=== PATIENT | female | born 1945 | race Caucasian/White ===

== ENCOUNTER 2019-03-27 19:05 | Inpatient (IN) | payer OTHER, BC ==
[2019-03-27 21:27] VITALS: BMI 17.8
[2019-03-27] MEDS: NA CHLORIDE 0.9% 1,000 ML IV SCH (21:33)
[2019-03-27] MEDS: ONDANSETRON 4 MG/2 ML VIAL IV PRN (21:35)
[2019-03-27 21:38] LABS: Basophils % 0.3 % (0-1.3); Hematocrit 39.6 % (36.0-45.0); Lymphocytes % 6.2 % (15.3-44.8); MPV 7.6 fL (7.6-11.3); RBC Red Blood Cell Count 4.07 M/uL (3.86-4.86)
[2019-03-27 21:44] LABS: Albumin 3.2 g/dL (3.4-5.0); Bilirubin Total 0.3 mg/dL (0.2-1.0); Magnesium 1.8 mg/dL (1.8-2.4); Protein, Total 6.5 g/dL (6.4-8.2)
[2019-03-27 21:53] LABS: Potassium 2.8 mmol/L (3.5-5.1)
[2019-03-27] MEDS: KCL 20 MEQ/100 mL IVPB 20 MEQ/100 ML BAG IV SCH (22:38)
[2019-03-27] MEDS: CIPROFLOXACIN 400mg IV 400 MG/200 ML BAG IV SCH (23:39)
[2019-03-27 23:43] LABS: Blood Morphology Comment NOT SEEN (NOT SEEN); Platelet Estimate ADEQ
[2019-03-28] MEDS: METRONIDAZOLE 500mg IVPB 500 MG/100 ML BAG IV SCH ×3 (00:27→16:41)
[2019-03-28] MEDS: KCL 20 MEQ/100 mL IVPB 20 MEQ/100 ML BAG IV SCH ×2 (01:10→03:47)
[2019-03-28] MEDS: LOPERAMIDE HCL 2 MG CAPSULE PO PRN ×3 (05:31→21:54)
[2019-03-28 05:38] LABS: Urine Appearance CLOUDY; Urine Bilirubin NEGATIVE (NEG); Urine Blood 3+ (NEG); Urine Color YELLOW; Urine Glucose NEGATIVE (NEG); Urine Protein 2+ (NEG); Urine Specific Gravity >=1.030 (1.005-1.030); Urine Urobilinogen 0.2 mg/dL (0.2-1.0)
[2019-03-28 05:54] LABS: Urine Microscopic Reflex ORDER UMIC
[2019-03-28 06:21] LABS: Urine Bacteria 20-50 /HPF (<20); Urine Culture Reflex Order REFLEXED
[2019-03-28] MEDS: NA CHLORIDE 0.9% 1,000 ML IV SCH ×2 (06:44→16:40)
[2019-03-28] MEDS ORDERED: MAGNESIUM SULFATE 1 gm IVPB 1 GM/100 ML BAG IV ONE (09:00)
[2019-03-28] MEDS: BUDESONIDE 3 MG PO SCH (09:00)
[2019-03-28] MEDS: LEVOTHYROXINE SOD 0.1 MG TAB PO SCH (09:53)
[2019-03-28] MEDS: AMLODIPINE 5 MG TAB PO SCH (09:53)
[2019-03-28] MEDS: CARVEDILOL 6.25 MG TAB PO SCH ×2 (09:53→20:00)
[2019-03-28] MEDS: CIPROFLOXACIN 400mg IV 400 MG/200 ML BAG IV SCH ×2 (11:44→20:00)
[2019-03-28] MEDS: ONDANSETRON 4 MG/2 ML VIAL IV PRN ×2 (13:32→20:06)
[2019-03-28] MEDS ORDERED: POTASSIUM CL SA 10 MEQ TAB PO ONE (14:00)
[2019-03-28] MEDS: DIPHENOX/ATROP SULF 1 TAB PO PRN ×2 (14:14→20:00)
[2019-03-28] MEDS: ATORVASTATIN 20 MG TAB PO SCH (20:00)
[2019-03-29] MEDS ORDERED: POTASSIUM CL 40 MEQ in NA CHLORIDE 0.9% 500 ML IV SCH (01:00)
--- NOTE | 2019-03-29 01:22 | PN ---
Date of Progress Note: 03/28/2019 Subjective: Patient was seen this morning for followup. No new complaints or problems reported by melanie diane, lying in bed, not in any distress. She continues to have diarrhea. During nighttime, she di d use 1 dose of Imodium. No vomiting after admission to the hospital. Objective: Vital Signs: Reviewed. HEENT: Unremarkable. Lungs: Clear to auscultation. Heart: Sounds normal. Abdomen: Soft. Bowel sounds normal. No guarding, rigidity, distention. Presence of tenderness in the periumbilical region, unchanged. Extremities: No leg edema. Impression: 1.Acute gastroenteritis. 2.Volume depletion. 3.Hypokalemia. 4.Ulcerative colitis. Plan: We will continue current medication, IV fluid, IV antibiotics. Continue clear liquid diet. G I consultation was requested from the patient's vegetable packer, Dr. Rao. Stool test result pe nding. Imodium was not helping her today for diarrhea, so I have ordered Lomotil. Repeat blood work tomorrow. I will see her tomorrow for followup. PRITI/MODL Voice ID: [id number] Report ID: [id number]
[2019-03-29] MEDS: LOPERAMIDE HCL 2 MG CAPSULE PO PRN ×4 (02:08→16:58)
[2019-03-29] MEDS: NA CHLORIDE 0.9% 1,000 ML IV SCH ×4 (02:08→23:00)
[2019-03-29] MEDS: METRONIDAZOLE 500mg IVPB 500 MG/100 ML BAG IV SCH ×3 (02:08→16:58)
[2019-03-29] MEDS: KCL 20 MEQ/100 mL IVPB 20 MEQ/100 ML BAG IV SCH ×2 (03:52→06:31)
--- NOTE | 2019-03-29 05:53 | HP ---
Date of Admission: 03/27/2019 Chief Complaint: Abdominal pain, nausea, vomiting, diarrhea. History Of Present Illness: This is a 74-year-old pleasant female patient, came into office with com plaints of abdominal pain, nausea, vomiting, diarrhea that started yesterday. Patient has vomiting w ith frequency of about 4-5 times a day, diarrhea anywhere between 10-20 times a day. She describes h er diarrhea as a liquid watery stool. Denies any blood in stool. No hematemesis. No fever, chills, but has periumbilical abdominal pain. She has not had anything to eat or drink after yesterday morn ing. She had breakfast, but nothing for lunch or dinner yesterday and nothing all day today. She fe els very weak when she gets up. She has not taken any of her medications and she takes antihypertens jennifer medication, but today without taking any blood pressure medications at office, her blood pressure was 99/60. After I evaluated her, she was admitted to the hospital. She feels very weak and tired and sleepy. Allergies: NO KNOWN ALLERGIES. Medications: List reviewed. Review of Systems: GI: As mentioned above. Constitutional: As mentioned above. All other systems reviewed and negative. Past Medical History: Significant for hypertension, hyperlipidemia, hypothyroidism, osteopenia, dive rticulosis, allergic rhinitis, back pain, hypothyroidism, ulcerative colitis. Past Surgical History: Right-sided thyroid lobectomy, cholecystectomy, hysterectomy. Family History: Significant for coronary artery disease, diabetes, and hypertension. Social History: Significant for smoking. Negative for alcohol use. Physical Examination: Vital Signs: When I saw her at office, weight 111.2 pounds, temperature 97.8, pulse 85, respiratory rate 18, blood pressure 99/60, height 5 feet 6 inches. General: Patient appears very weak and tired, not in any respiratory distress. HEENT: Head atraumatic, normocephalic. Conjunctivae nonerythematous. Sclerae white. Mouth examina tion shows dry oral mucosa. Ears/Nose, no mass, lesion, discharge noted. Neck: Supple. No JVD, lymph nodes, bruit, thyromegaly noted. Lungs: Bilateral good equal air entry. Clear to auscultation. No rhonchi. No rales. Heart: Normal heart sounds, no murmur or gallop. Abdomen: Soft. Presence of tenderness in periumbilical region. No rebound tenderness. Bowel sound s normal. No guarding, rigidity. No hepatosplenomegaly. No bruit. Extremities: No leg edema. No calf tenderness. Skin: No rash, ulcer, cellulitis. Lymphatics: No lymph node enlargement in neck, supraclavicular, infraclavicular region. Neuro: No focal neurological deficit. Chest: Unremarkable. External Genitalia: Deferred. Rectal: Deferred. Laboratory Data: White count 15.9, hemoglobin 13.6, platelets 274, 17% bands. Sodium 134, potassium 2.8, chloride 100, bicarb 26, BUN 17, creatinine 1.04, glucose 91. Liver function tests unremarkabl e. Procalcitonin 0.10. Impression: 1.Acute gastroenteritis. 2.Volume depletion. 3.Hypokalemia. 4.Ulcerative colitis. 5.Hypertension. 6.Hyperlipidemia. 7.Hypothyroidism. 8.Osteopenia. 9.Diverticulosis. 10.Allergic rhinitis. Admit patient to hospital for further evaluation and management of this problem. Patient is appropri ate for inpatient and is expected to spend 2 midnights in hospital. Home medications will be continu ed per order. DVT prophylaxis will be given per order. We will go ahead and start her on clear liqu id diet. Empiric IV antibiotics, Cipro and Flagyl will be started. Stool was ordered for culture an d C difficile. We will give her symptomatic treatment for vomiting as well as diarrhea. Replace ascencion ctrolyte per protocol and I will see her tomorrow for followup details. Plan of treatment discussed with her. PRITI/MODL Voice ID: [id number]
[2019-03-29 06:01] LABS: Magnesium 1.6 mg/dL (1.8-2.4); Potassium 3.1 mmol/L (3.5-5.1)
[2019-03-29 06:11] LABS: Basophils % 0.3 % (0-1.3); Hematocrit 33.8 % (36.0-45.0); Lymphocytes % 11.5 % (15.3-44.8); MPV 7.7 fL (7.6-11.3); RBC Red Blood Cell Count 3.47 M/uL (3.86-4.86)
[2019-03-29] MEDS: METHYLPREDNISOLONE 40 MG INJ IV SCH ×3 (06:32→17:01)
[2019-03-29] MEDS: HYOSCYAMINE SULF 0.125 MG TAB PO PRN ×3 (06:32→17:01)
[2019-03-29] MEDS ORDERED: MAGNESIUM SULFATE 1 gm IVPB 1 GM/100 ML BAG IV ONE (09:00)
[2019-03-29] MEDS ORDERED: POTASSIUM CL SA 10 MEQ TAB PO ONE (09:00)
[2019-03-29] MEDS: AMLODIPINE 5 MG TAB PO SCH (09:05)
[2019-03-29] MEDS: CARVEDILOL 6.25 MG TAB PO SCH ×2 (09:05→20:17)
[2019-03-29] MEDS: LEVOTHYROXINE SOD 0.1 MG TAB PO SCH (09:06)
[2019-03-29] MEDS: CIPROFLOXACIN 400mg IV 400 MG/200 ML BAG IV SCH ×2 (09:08→20:17)
[2019-03-29] MEDS: BUDESONIDE 3 MG PO SCH (09:13)
--- NOTE | 2019-03-29 09:34 | PN ---
Date of Progress Note: 03/29/2019 Subjective: The patient was seen this morning for followup. No new complaints or problems reported except ongoing diarrhea, abdominal pain, nausea, and vomiting. No bleeding. Patient still continues to have diarrhea with the same frequency and has not improved. She reports diarrhea with frequency anywhere between 10 to 20 times a day. It is watery stool, not able to keep anything down because so that she eats or drinks something, she either ends up having nausea, vomiting, or diarrhea. Objective: Vital Signs: Reviewed. HEENT: Unremarkable. Lungs: Clear to auscultation. Heart: Sounds normal. ABDOMEN: Soft. Bowel sounds normal. No guarding, rigidity, distention. Presence of tenderness in periumbilical upper abdomen. Mild tenderness. No rebound tenderness. Bowel sounds normoactive. Extremities: No leg edema. Laboratory Data: Labs from this morning pending. Impression: 1.Acute gastroenteritis. 2.Ulcerative colitis. 3.Hypertension. 4.Hypokalemia. Plan: Patient's blood work results from this morning are pending. Yesterday, GI consultation was re quested from the patient's fire control mechanic, Dr. Rao, whom she sees normally on an outpatient ba sis. Stool C difficile came back negative. Stool culture is still pending. Considering the patient is not improving with current IV antibiotics and with her underlying history of ulcerative colitis, we definitely need to keep in mind about acute exacerbation of her ulcerative colitis at this point a nd I will start her on empiric IV steroid, Solu-Medrol, and wait for GI consultation today. She is r equesting some pain medication for abdominal pain. We did talk about using low-dose pain medicine li ke morphine, which she is not interested in trying any medication like that, so we will try Levsin pe r order. We will see her tomorrow for followup. We will continue to follow up on electrolytes and r eplace electrolytes per protocol. The patient has Imodium and Lomotil ordered for diarrhea, but so f ar it has helped her. We are hoping that she will show improvement with IV steroids. PRITI/MODL Voice ID: [id number] Report ID: [id number]
[2019-03-29] MEDS: METHYLPRED NA SUC 40 MG in NA CHLORIDE 0.9% 200 ML IV SCH (18:03)
[2019-03-29] MEDS: ATORVASTATIN 20 MG TAB PO SCH (20:17)
[2019-03-29] MEDS: ENSURE CLEAR 200 ML CAN PO SCH (20:18)
[2019-03-29] MEDS: ONDANSETRON 4 MG/2 ML VIAL IV PRN (22:21)
[2019-03-30] MEDS: METRONIDAZOLE 500mg IVPB 500 MG/100 ML BAG IV SCH ×3 (00:01→17:07)
[2019-03-30] MEDS: METHYLPREDNISOLONE 40 MG INJ IV SCH ×2 (00:02→05:21)
[2019-03-30] MEDS: HYOSCYAMINE SULF 0.125 MG TAB PO PRN ×2 (00:03→05:20)
[2019-03-30] MEDS: LEVOTHYROXINE SOD 0.1 MG TAB PO SCH (05:20)
[2019-03-30] MEDS: NA CHLORIDE 0.9% 1,000 ML IV SCH ×2 (05:21→08:20)
[2019-03-30 06:25] LABS: Magnesium 1.6 mg/dL (1.8-2.4); Potassium 3.5 mmol/L (3.5-5.1)
[2019-03-30] MEDS ORDERED: MAGNESIUM SULFATE 1 gm IVPB 1 GM/100 ML BAG IV ONE (07:30)
[2019-03-30] MEDS ORDERED: POTASSIUM CL SA 10 MEQ TAB PO ONE ×2 (08:00→20:00)
[2019-03-30] MEDS: BUDESONIDE 3 MG PO SCH (08:15)
[2019-03-30] MEDS: CARVEDILOL 6.25 MG TAB PO SCH ×2 (08:17→21:51)
[2019-03-30] MEDS: AMLODIPINE 5 MG TAB PO SCH (08:18)
[2019-03-30] MEDS: CIPROFLOXACIN 400mg IV 400 MG/200 ML BAG IV SCH ×2 (08:19→21:51)
[2019-03-30] MEDS: ENSURE CLEAR 200 ML CAN PO SCH ×2 (08:21→21:00)
[2019-03-30] MEDS: METHYLPRED NA SUC 40 MG in NA CHLORIDE 0.9% 200 ML IV SCH (17:07)
--- NOTE | 2019-03-30 19:54 | PN ---
Date of Progress Note: 03/30/2019 Subjective: Patient was seen this morning for followup. Her diarrhea is better. She had about 4 to 5 bowel movements during first half of the day yesterday, but after that, she has not had anymore diarrhea. She still has some abdominal pain. Objective: Vital Signs: Reviewed. HEENT: Examination unremarkable. Lungs: Clear to auscultation. Heart: Sounds normal. Abdomen: Soft. No guarding or rigidity. Distention noted. Bowel sounds normoactive. Patient does have some tenderness in upper abdomen, which is mild. No rebound tenderness. Extremities: No leg edema. Laboratory Data: Sodium 135, potassium 3.5, chloride 105, bicarb 24, BUN 8, creatinine 0.69, glucose 141, magnesium 1.6. Impression: 1. Acute gastroenteritis. 2. Ulcerative colitis. 3. Hypokalemia. 4. Hypomagnesemia. 5. Hypertension. Plan: The patient's stool C diff came back negative; so yesterday, I did start her on IV steroid and that actually has helped her very well and she does not have any diarrhea anymore. We will advance her diet to soft diet, today starting at lunch time. Continue to replace electrolytes per protocol. Continue current antibiotics. Ambulation was encouraged and I will see her tomorrow for followup. Possible discharge to go home tomorrow depending on her condition. PRITI/MODL Voice ID: [id number] Report ID: [id number] MTDUrsula
[2019-03-30] MEDS: ATORVASTATIN 20 MG TAB PO SCH (21:51)
[2019-03-30 22:34] VITALS: O2SAT 96
[2019-03-31] MEDS: METRONIDAZOLE 500mg IVPB 500 MG/100 ML BAG IV SCH ×3 (00:13→16:42)
[2019-03-31] MEDS: HYOSCYAMINE SULF 0.125 MG TAB PO PRN ×2 (00:15→10:39)
[2019-03-31] MEDS: LEVOTHYROXINE SOD 0.1 MG TAB PO SCH (05:38)
[2019-03-31 06:39] LABS: Magnesium 1.7 mg/dL (1.8-2.4)
[2019-03-31] MEDS ORDERED: MAGNESIUM SULFATE 1 gm IVPB 1 GM/100 ML BAG IV ONE (08:00)
[2019-03-31] MEDS: AMLODIPINE 5 MG TAB PO SCH (08:33)
[2019-03-31] MEDS: LOPERAMIDE HCL 2 MG CAPSULE PO PRN ×2 (08:33→12:56)
[2019-03-31] MEDS: CARVEDILOL 6.25 MG TAB PO SCH (08:35)
[2019-03-31] MEDS: CIPROFLOXACIN 400mg IV 400 MG/200 ML BAG IV SCH (08:35)
[2019-03-31] MEDS: ENSURE CLEAR 200 ML CAN PO SCH (08:36)
[2019-03-31] MEDS: BUDESONIDE 3 MG PO SCH (08:36)
--- NOTE | 2019-03-31 14:13 | P.PN ---
Subjective Date of Service: 04/05/19 Chief Complaint: Change in bowel habits / diarrhea, LEANNE/RLQ/LLQ pain Subjective: Improving (No diarrhea now.) Review of Systems 10-point ROS is otherwise unremarkable General: Weakness (Improved. ) Physical Examination - Vital Signs Temperature: 98.1 F Blood Pressure: 134/63 Pulse: 58 Respirations: 16 Pulse Ox (%): 96 - Physical Exam General: Alert, In no apparent distress, Oriented x3, Cooperative HEENT: Atraumatic, Normocephalic, PERRLA Neck: Supple Respiratory: Normal air movement Cardiovascular: Normal pulses Gastrointestinal: Soft and benign, No tenderness, No rebound, No guarding Neurological: Normal speech, Normal strength at 5/5 x4 extr - Studies Laboratory Data (last 24 hrs) 03/31/19 06:02: Sodium 137, Potassium 4.0, BUN 12, Creatinine 0.74, Glucose 137 H, Magnesium 1.7 L 03/30/19 17:51: Potassium 3.8 Microbiology Data (last 24 hrs): 03/28/19 04:50 Stool Culture & Sensitivity - Final Assessment And Plan - Current Problems (Diagnosis) (1) Change in bowel habits Status: Acute Comment: Improved. (2) Diarrhea Status: Acute Comment: Improved. (3) Epigastric abdominal pain Status: Acute Comment: Improved. (4) RLQ abdominal pain Status: Acute Comment: Improved. (5) LLQ abdominal pain Status: Acute Comment: Improved. (6) Collagenous colitis Status: Acute (7) Hypotension Onset Date: 01/19/15 Status: Acute Comment: Improved. (8) Near syncope Onset Date: 01/19/15 Status: Acute Comment: Resolved. - Plan REC: 1) continue IVFs and IV antiobiotics 2) continue IV Solumedrol 3) on discharge Entocort tid for 2-3 months, Cipro/Flagyl for 7 days, Probiotics qd, Lialda 2 tabs po bid 4) GI clinic f/u in 1 week 5) outpatient EGD / colonoscopy
[2019-03-31] MEDS: METHYLPRED NA SUC 40 MG in NA CHLORIDE 0.9% 200 ML IV SCH (18:00)
[2019-03-31] MEDS ORDERED: CHOLESTYRAMINE/ASP 4 GM/PKT PO ONE (18:00)
[2019-04-05 15:58] VITALS: BP 134/63; TEMP 98.1
--- NOTE | 2019-04-07 14:23 | CON ---
Date of Consultation: 03/30/2019 Reason For Consultation: Markedly increased diarrhea, with abdominal pain, nausea and vomiting. History Of Present Illness: The patient is a 74-year-old white female with history of collagenous co litis, presented to hospital after being seen in primary care office with a marked increase in diarrh ea associated with abdominal pain, nausea, vomiting. Patient was admitted to the hospital for furthe r evaluation and care. She has been having diarrhea between 10-20 times per day with nausea and vomi ting for 5 times a day and abdominal pain, especially around the umbilicus. Patient states that this has been progressive over the past 3 weeks and came to a point where she could not tolerate any more . She thinks she may have eaten some bad food or are due to change in her vitamin B12 pills that she changed approximately 2-3 weeks ago. She eats out about 2 times per week, usually [place] food, [place], [place], or [employer] in [place], [place]. She had a skin cancer removed 2-3 weeks ago, squamous c ell, but did not receive any antibiotics. She has been having some periumbilical midepigastric pain with nausea, vomiting radiating down to the right and left lower quadrant area. This has improved si nce hospitalization with IV fluids, IV antibiotics, and start steroids. She denies any fevers, chill s, night sweats. Last colonoscopy and EGD were in approximately 2016. Past Medical History: Significant for collagenous colitis, hypertension, hyperlipidemia, skin cancer s. Family History: She has a family history of colon cancer in 2 brothers, stomach cancer in another br other. Father of congestive heart failure at age of 83. Mother of congestive heart failur e at age of 93. Social History: She is , 1 daughter. She did smoke a pack a day, now she is down to about a half pack a day. She says she has been trying to quit. No alcohol. Review of Systems: Patient has periumbilical midepigastric pain, nausea, vomiting, profuse diarrhea 10-20 bowel movement s a day. Denies any melena, hematochezia, hematemesis, coffee-ground, hematuria, dysuria, polyuria, polydipsia, chest pain, shortness of breath, seizure, syncope, lower extremity muscle aches, joint ac hes, backaches, depression, anxiety. Physical Examination: VITAL SIGNS: Patient is 5 feet 6 inches, 110 pounds. BMI is 17.9 kg/sq m. Temperature 98.3 degrees Fahrenheit, pulse 60, respirations 18, blood pressure 147/65, O2 saturation 97%. HEENT: Normocephalic, atraumatic, anicteric. Pupils equal, round, and reactive to light. Extraocul ar movements intact. Oropharynx clear. Neck: Supple. No masses. Respirations: Clear to auscultation bilaterally. Cardiac: Regular rate and rhythm. No gallops. Abdomen: Positive bowel sounds. Soft, nondistended. Mild tenderness in the midepigastric area. No peritoneal or Warner sign. Extremities: No clubbing, cyanosis, or edema. 2+ pulses. Neuro: Alert and oriented x3. Grossly nonfocal. 5/5 motor strength. Sensation intact to light touc h. Laboratory Data: Patient had a white count yesterday of 8.3, down from 15.9 on ; hemoglobin 12.0 ; hematocrit of 33.8; MCV of 97; platelet count of 204. Polys of 75%, down from 87% on the ; lym phocytes 12%; monocytes 11%; and eosinophils 1. Patient has a sodium of 136, potassium 3.1, chloride 105, bicarb 23, BUN of 12, creatinine of 0.7, glucose 101, calcium 7.7, magnesium 1.6. Urinalysis; 1+ ketones, 3+ blood, 10-20 RBCs, 10-20 white blood cells, 20-50 bacteria, 2+ protein. Impression: 1.Marked increase in diarrhea up to 10-20 bowel movements a day, now with periumbilical midepigastri c pain radiating down to the right and left lower quadrants and nausea and vomiting. Differential in cludes flare of her collagenous colitis, which is probable versus an infection which from stool studi es negative today seems less likely. She thinks she may have eaten some bad food or her recent augustin es and this could be due to change in her vitamin B12 tablets recently from 1 formulation to another or the fact that she eats out at a restaurant twice a week, usually [place] food like [place] [employer], [place], or [employer] in [place]. She also had skin cancers removed 2 to 3 weeks ago, squamous cell, but sta axel she had no antibiotics at that time. Last colonoscopy and EGD approximately 2016. 2.Family history of colon cancer in 2 brothers, stomach cancer in brother. 3.History of collagenous colitis, hypertension, hyperlipidemia, skin cancer. Recommendations: 1.Continue IV fluids, IV antibiotics. 2.Check stool studies today. C diff and culture are still pending at this time. 3.Could change IV steroids from 40 mg q.6 hours to 40 mg in a 200 mL bag normal saline to be adminis tered as a drip over 24 hours daily. 4.Colonoscopy and EGD as inpatient and outpatient. 5.Full liquids and slowly to GI soft diet. JOHN/LIMAL Voice ID: [id number] Report ID: [id number]
== END 2019-03-31 18:29 | disposition home or self-care (01) | DRG 392 ==
LOC: 2ND 19:24
PROVIDERS: ADMIT Internal Medicine; ATTEND Internal Medicine
DX: K52.9 Noninfective gastroenteritis and colitis, unspecified (principal); K51.90 Ulcerative colitis, unspecified, without complications; E87.6 Hypokalemia; E83.42 Hypomagnesemia; I10 Essential (primary) hypertension; E78.5 Hyperlipidemia, unspecified; E03.9 Hypothyroidism, unspecified; M85.80 Other specified disorders of bone density and structure, unspecified site
CPT/HCPCS: 36415; 80048; 80053; 81003; 81015; 83735; 84132; 84145; 85025; 87045; 87046; 87086; 87088; 87493; J0744; J2405; J2920; J3475; J7030

== ENCOUNTER 2021-11-17 20:59 | Emergency (ER) | payer OTHER, BC ==
[2021-11-17] MEDS ORDERED: ONDANSETRON 4 MG (ODT) TAB ONE (21:32)
[2021-11-17] MEDS ORDERED: ONDANSETRON 4 MG/2 ML VIAL ONE (23:07)
[2021-11-17] MEDS ORDERED: NA CHLORIDE 0.9% 1,000 ML ONE (23:07)
[2021-11-17 23:19] LABS: Absolute Lymphocytes (CBC) 0.8 K/uL (0.7-4.9); Hematocrit 31.9 % (36.0-45.0); Lymphocytes % 3.5 % (15.3-44.8); MPV 6.5 fL (7.6-11.3); RBC Red Blood Cell Count 3.53 M/uL (3.86-4.86)
[2021-11-17] MEDS ORDERED: MORPHINE 2 MG/ML SYR ONE (23:56)
[2021-11-17 23:59] LABS: Albumin 3.1 g/dL (3.4-5.0); Bilirubin Total 0.6 mg/dL (0.2-1.0); Protein, Total 6.4 g/dL (6.4-8.2)
[2021-11-18] LABS: Potassium 2.6 mmol/L (3.5-5.1)
--- NOTE | 2021-11-18 00:30 | EDPHYS ---
Physician Documentation [facility] Name: Jazz Carlson Age: 76 yrs Sex: Female : 1945 Arrival Date: 11/17/2021 Time: 21:02 Bed 8 Private MD: ED Physician Sree Beard HPI: 11/17 22:31 This 76 yrs old Female presents to ER via Ambulatory with complaints of Diarrhea, abd rn pain. 22:31 The patient presents to the emergency department with nausea, vomiting, diarrhea, rn abdominal pain, of the left lower quadrant. Onset: The symptoms/episode began/occurred 4 day(s) ago. Possible causes: unknown. The symptoms are aggravated by movement, pressure, The symptoms are alleviated by nothing. Associated signs and symptoms: Pertinent positives: abdominal pain, diarrhea, nausea, vomiting, Pertinent negatives: GI bleeding. Severity of symptoms: At their worst the symptoms were moderate in the emergency department the symptoms are unchanged. The patient has experienced similar episodes in the past. The patient has not recently seen a physician. Historical: - Allergies: 11/18 00:00 Morphine (Hives); ll3 - PMHx: 11/17 21:30 Colitis; Hypertension; Hypothyroidism; squamous cell carcinoma; jb4 - PSHx: 21:30 None; jb4 - Immunization history:: Adult Immunizations up to date. - Social history:: Smoking status: Patient reports the use of cigarette tobacco products, smokes one-half pack cigarettes per day. - Family history:: not pertinent. - Hospitalizations: : No recent hospitalization is reported. ROS: 22:31 Constitutional: negative for fever, + chills Eyes: Negative for injury, pain, redness, rn and discharge, Neck: Negative for injury, pain, and swelling, Cardiovascular: Negative for chest pain, palpitations, and edema, Respiratory: Negative for shortness of breath, cough, wheezing, and pleuritic chest pain, Abdomen/GI: + abd pain and nausea/vomiting/diarrhea Back: Negative for injury and pain, : Negative for injury, bleeding, discharge, and swelling, MS/Extremity: Negative for injury and deformity, Skin: Negative for injury, rash, and discoloration, Neuro: + generalized weakness Exam: 22:31 Constitutional: This is a well developed, well nourished patient who is awake, alert, rn slowly ambulatory to triage, from bathroom, hunched over as she walks, but doesn't require assistance. Head/Face: Normocephalic, atraumatic. ENT: Dry MM Cardiovascular: Regular rate and rhythm. No pulse deficits. Respiratory: No increased work of breathing, no retractions or nasal flaring. Abdomen/GI: Soft, + tender LLQ, no rebound, no peritoneal signs. Skin: Warm, dry MS/ Extremity: Pulses equal, no cyanosis. Neuro: Awake and alert, GCS 15 Vital Signs: 21:29 BP 124 / 67; Pulse 58; Resp 16; Temp 98.4(TE); Pulse Ox 100% on R/A; Weight 63.05 kg jb4 (R); Height 5 ft. 5 in. (165.10 cm) (R); Pain 10/10; 23:07 BP 122 / 69; Pulse 55 MON; Resp 18 S; Pulse Ox 99% on R/A; as6 11/18 01:28 BP 134 / 53; Pulse 62; Resp 17; Pulse Ox 98% on R/A; ll3 02:53 BP 134 / 66; Pulse 62; Resp 18 S; Pulse Ox 93% on R/A; as6 04:00 BP 161 / 64; Pulse 56; Resp 18; Pulse Ox 93% on R/A; vc1 05:00 BP 138 / 65; Pulse 55; Resp 19; Pulse Ox 93% on R/A; vc1 05:39 BP 162 / 70; Pulse 60; Resp 18; Pulse Ox 96% on R/A; vc1 11/17 21:29 Body Mass Index 23.13 (63.05 kg, 165.10 cm) jb4 MDM: 11/17 21:13 Patient medically screened. rn 11/18 01:12 ED course: Pt with severe pancreatic and biliary ductal dilatation, with fullness 2nd rn part of duodenum, possible mass. No specialist here for possible ERCP/further evaluation, initiated transfer to [facility] for hospitalist admit with GI consultation.. 01:38 ED course: [facility] system declined due to capacity.. rn 01:58 Differential diagnosis: Nonspecific abd pain, gastritis, pancreatitis, viral rn gastroenteritis, gastroenteritis, bowel obstruction, pancreatitis, mass. Data reviewed: vital signs, nurses notes, lab test result(s), radiologic studies, CT scan, and as a result, I will admit patient. Counseling: I had a detailed discussion with the patient and/or guardian regarding: the historical points, exam findings, and any diagnostic results supporting the discharge/admit diagnosis, lab results, radiology results, the need to transfer to another facility, for higher level of care, [facility] does not immediately have the required specialist. Response to treatment: the patient's symptoms have mildly improved after treatment, and as a result, I will admit patient. 03:19 ED course: Checked with [facility] system, now told entire [facility] system at capacity. rn Initiated transfer to [facility]. . 11/17 21:23 Order name: CBC with Diff; Complete Time: 01:12 rn 11/17 21:23 Order name: CMP; Complete Time: 00:18 rn 11/17 21:23 Order name: Lipase; Complete Time: 00:18 rn 11/17 21:23 Order name: CT Abd/Pelvis - IV Contrast Only rn 11/17 23:23 Order name: Manual Differential; Complete Time: 01:12 EDMS 11/18 01:06 Order name: COVID-19 SARS RT PCR (Document "Date of Onset" if Symptomatic); Complete ll3 Time: 03:31 11/17 21:23 Order name: IV Saline Lock; Complete Time: 23: rn 11/17 21:23 Order name: Labs collected and sent; Complete Time: 23:01 rn Administered Medications: 11/17 21:32 Drug: Ondansetron 4 mg Route: PO; jb4 11/18 02:17 Follow up: Response: No adverse reaction as6 11/17 23:04 Drug: NS 0.9% 1000 ml Route: IV; Rate: 1 bolus; Site: left antecubital; as11/18 02:18 Follow up: Response: No adverse reaction; IV Status: Completed infusion; IV Intake: as6 1000ml 11/17 23:04 Drug: Zofran (Ondansetron) 4 mg Route: IVP; Site: left antecubital; 11/18 02:18 Follow up: Response: No adverse reaction as6 00:00 Not Given (Patient Refused): morphine 2 mg IVP once; (PAIN>8) RASS on ADMN: Combtv4, ll3 Very Agttd3, Agttd2, Rstlss1, AlertClm0, Drwsy-1, LtSdtn-2, ModSdtn-3, DpSdtn-4, UnArsble-5 x2 01:20 Drug: Demerol (meperidine) 12.5 mg Route: IVP; Site: right antecubital; ll3 02:18 Follow up: Response: No adverse reaction; RASS: Alert and Calm (0) as6 01:28 Drug: Potassium Chloride 10 mEq Route: IV; Rate: calculated rate; Site: right ll3 antecubital; 02:17 Follow up: Response: No adverse reaction; IV Status: Completed infusion; IV Intake: 19rydh3 01:30 Drug: Zosyn (piperacillin-tazobactam) 3.375 grams Route: IVPB; Infused Over: 60 mins; ll3 Site: right antecubital; 02:17 Follow up: Response: No adverse reaction; IV Status: Completed infusion; IV Intake: as6 100ml 02:40 Drug: D5-NS with KCL 20 mEq/L 1000 ml Route: IV; Rate: 150 ml/hr; Site: right as6 antecubital; 02:40 Drug: Demerol (meperidine) 12.5 mg Route: IVP; Site: right antecubital; as6 Disposition Summary: 11/18/21 01:14 Transfer Ordered Reason: Higher level of care rn Condition: Stable(11/18/21 01:14) rn Problem: new(11/18/21 01:14) rn Symptoms: have improved(11/18/21 01:14) groover and turner [facility] rn Accepting Physician: (11/18/21 05:58) jb4 Diagnosis - Abdominal pain, unspecified rn - Hypo-osmolality and hyponatremia(11/18/21 01:14) rn - Hypokalemia(11/18/21 01:14) rn - Disorders of gallbladder, biliary tract and pancreas in diseases classified rn elsewhere - Ductal dilatation with possible mass Forms: - Medication Reconciliation Form rn - SBAR form rn Signatures: Dispatcher [employer] EDMS Sree Beard MD MD rn Garcia, Cindy, RN RN cg Bryson, James, RN RN jb4 Oliver Phipps RN RN as6 Amanda Bonilla RN RN 3 Corrections: (The following items were deleted from the chart) 00:11/17 21:30 Allergies: NKDA; elaine ll3 11/18 00:42 00:30 Telemetry/MedSurg (Inpatient) rn cg 00:42 00:30 rn cg : 00:30 Inpatient Admission rn rn : 00:30 Simmons, A rn rn : 00:30 Stable rn rn : 00:30 new rn rn : 00:30 have improved rn rn : 00:30 Standard rn rn : 00:30 Infectious gastroenteritis and colitis, unspecified rn rn : 00:30 Dehydration rn rn : 00:30 Hypo-osmolality and hyponatremia rn rn : 00:30 Hypokalemia rn rn 01:13 00:42 [facility] ER HOLD cg rn 01:13 00:42 ERHOLD- cg rn 02:18 01:14 rn rn 02:18 01:14 [facility] rn rn 03:44 02:18 rn rn 03:44 02:18 [facility] rn rn 05:58 03:44 rn jb4
--- NOTE | 2021-11-18 00:30 | ER ---
Nurse's Notes [facility] Name: Jazz Carlson Age: 76 yrs Sex: Female : 1945 Arrival Date: 11/17/2021 Time: 21:02 Bed 8 Private MD: Diagnosis: Abdominal pain, unspecified;Hypo-osmolality and hyponatremia;Hypokalemia;Disorders of gallbladder, biliary tract and pancreas in diseases classified elsewhere-Ductal dilatation with possible mass Presentation: 11/17 21:29 Chief complaint: Patient states: I have had diarrhea for 3-4 days. I started to get jb4 nauseous today. I vomit each time I try to drink. Coronavirus screen: At this time, the client does not indicate any symptoms associated with coronavirus-19. Ebola Screen: No symptoms or risks identified at this time. Initial Sepsis Screen: Does the patient meet any 2 criteria? No. Patient's initial sepsis screen is negative. Does the patient have a suspected source of infection? Yes: Acute abdominal pain. Risk Assessment: Do you want to hurt yourself or someone else? Patient reports no desire to harm self or others. Onset of symptoms was November 17, 2021. Transition of care: patient was not received from another setting of care. 21:29 Method Of Arrival: Ambulatory jb4 21:29 Acuity: GREER 3 jb4 Historical: - Allergies: 11/18 00:00 Morphine (Hives); ll3 - PMHx: 11/17 21:30 Colitis; Hypertension; Hypothyroidism; squamous cell carcinoma; jb4 - PSHx: 21:30 None; jb4 - Immunization history:: Adult Immunizations up to date. - Social history:: Smoking status: Patient reports the use of cigarette tobacco products, smokes one-half pack cigarettes per day. - Family history:: not pertinent. - Hospitalizations: : No recent hospitalization is reported. Screenin:09 Abuse screen: Denies threats or abuse. Denies injuries from another. Nutritional as6 screening: No deficits noted. Tuberculosis screening: No symptoms or risk factors identified. Fall Risk None identified. Assessment: 23:08 General: Appears in no apparent distress. uncomfortable, Behavior is calm, cooperative. as6 Pain: Complains of pain in left lower quadrant Quality of pain is described as crampy. Neuro: Level of Consciousness is awake, alert, obeys commands, Oriented to person, place, time, situation. Cardiovascular: JVD is absent Patient's skin is warm and dry. Respiratory: Respiratory effort is even, unlabored, Respiratory pattern is regular, symmetrical. GI: Reports lower abdominal pain, cramping, diarrhea, nausea, vomiting. 11/18 01:28 Reassessment: Patient and/or family updated on plan of care and expected duration. Pain ll3 level reassessed. Patient is alert, oriented x 3, equal unlabored respirations, skin warm/dry/pink. Pt c/o abdominal pain 04/11, ERP notified, medicated as ordered. 02:30 Reassessment: Patient and/or family updated on plan of care and expected duration. Pain vc1 level reassessed. Patient is alert, oriented x 3, equal unlabored respirations, skin warm/dry/pink. 03:30 Reassessment: Patient appears in no apparent distress at this time. vc1 04:30 Reassessment: Patient appears in no apparent distress at this time. Patient and/or vc1 family updated on plan of care and expected duration. Pain level reassessed. Patient states symptoms have improved. 05:27 Reassessment: Patient appears in no apparent distress at this time. Patient and/or vc1 family updated on plan of care and expected duration. Pain level reassessed. Pt ambulated to the bathroom. Report called to JIM Reeys at [facility]. No complaints of pain at this time. Vital Signs: 11/17 21:29 BP 124 / 67; Pulse 58; Resp 16; Temp 98.4(TE); Pulse Ox 100% on R/A; Weight 63.05 kg jb4 (R); Height 5 ft. 5 in. (165.10 cm) (R); Pain 10; 23:07 BP 122 / 69; Pulse 55 MON; Resp 18 S; Pulse Ox 99% on R/A; as6 11/18 01:28 BP 134 / 53; Pulse 62; Resp 17; Pulse Ox 98% on R/A; ll3 02:53 BP 134 / 66; Pulse 62; Resp 18 S; Pulse Ox 93% on R/A; as6 04:00 BP 161 / 64; Pulse 56; Resp 18; Pulse Ox 93% on R/A; vc1 05:00 BP 138 / 65; Pulse 55; Resp 19; Pulse Ox 93% on R/A; vc1 05:39 BP 162 / 70; Pulse 60; Resp 18; Pulse Ox 96% on R/A; vc1 11/17 21:29 Body Mass Index 23.13 (63.05 kg, 165.10 cm) jb4 ED Course: 11/17 21:02 Patient arrived in ED. bp1 21:13 Sree Beard MD is Attending Physician. rn 21:30 Triage completed. jb4 21:30 Arm band placed on right wrist. jb4 23:01 Oliver Phipps, JIM is Primary Nurse. as6 23:02 Inserted saline lock: 22 gauge in left antecubital area, using aseptic technique. Blood zm collected. 23:02 CBC with Diff Sent. zm 23:02 CMP Sent. zm 23:02 Lipase Sent. zm 23:09 Bed in low position. Call light in reach. Side rails up X2. Pulse ox on. NIBP on. Warm as6 blanket given. 11/18 00:29 Elijah Govea MD is Hospitalizing Provider. rn 00:29 Yesi Simmons MD is Hospitalizing Provider. rn 00:39 CT Abd/Pelvis - IV Contrast Only In Process Unspecified. EDMS 01:21 IV discontinued, intact, bleeding controlled, No redness/swelling at site. Pressure ll3 dressing applied. 01:21 Inserted saline lock: 22 gauge in right antecubital area, using aseptic technique. ll3 01:26 initiated a transfer with Diandra Jacobs from [facility]. mw2 01:37 [facility] denied due to capacity. mw2 01:56 initiated a transfer with Nasir Christensen from [facility]. mw2 02:[address] Beard with the GI specialist from [facility]. mw2 02:35 [facility] denied due to IMU capacity. mw2 03:08 [facility] denied due to capacity. mw2 03:26 initiated a transfer with Phoebe from [facility]. mw2 03:[address] Beard [address] Dr. Calles from [facility]. mw2 04:45 administrative approval given by Phoebe Hall/ patient has been accepted to [address] [place] Au 11 A 1101/ Dr. Calles accepted the patient in transfer/report to be called to [phone]. 05:23 No provider procedures requiring assistance completed. Patient transferred, IV remains vc1 in place. Administered Medications: 11/17 21:32 Drug: Ondansetron 4 mg Route: PO; jb4 11/18 02:17 Follow up: Response: No adverse reaction as6 11/17 23:04 Drug: NS 0.9% 1000 ml Route: IV; Rate: 1 bolus; Site: left antecubital; as11/18 02:18 Follow up: Response: No adverse reaction; IV Status: Completed infusion; IV Intake: as6 1000ml 11/17 23:04 Drug: Zofran (Ondansetron) 4 mg Route: IVP; Site: left antecubital; 11/18 02:18 Follow up: Response: No adverse reaction as 00:00 Not Given (Patient Refused): morphine 2 mg IVP once; (PAIN>8) RASS on ADMN: Combtv4, ll3 Very Agttd3, Agttd2, Rstlss1, AlertClm0, Drwsy-1, LtSdtn-2, ModSdtn-3, DpSdtn-4, UnArsble-5 x2 01:20 Drug: Demerol (meperidine) 12.5 mg Route: IVP; Site: right antecubital; ll3 02:18 Follow up: Response: No adverse reaction; RASS: Alert and Calm (0) as6 01:28 Drug: Potassium Chloride 10 mEq Route: IV; Rate: calculated rate; Site: right ll3 antecubital; 02:17 Follow up: Response: No adverse reaction; IV Status: Completed infusion; IV Intake: [id number] 01:30 Drug: Zosyn (piperacillin-tazobactam) 3.375 grams Route: IVPB; Infused Over: 60 mins; ll3 Site: right antecubital; 02:17 Follow up: Response: No adverse reaction; IV Status: Completed infusion; IV Intake: as6 100ml 02:40 Drug: D5-NS with KCL 20 mEq/L 1000 ml Route: IV; Rate: 150 ml/hr; Site: right as6 antecubital; 02:40 Drug: Demerol (meperidine) 12.5 mg Route: IVP; Site: right antecubital; as6 Medication: 02:53 VIS not applicable for this client. as6 Intake: 02:17 IV: 100ml; Total: 100ml. as6 02:17 IV: 50ml; Total: 150ml. as6 02:18 IV: 1000ml; Total: 1150ml. as6 Outcome: 00:30 Decision to Hospitalize by Provider. rn 01:14 ER care complete, transfer ordered by MD. rn 05:23 Transferred by ground EMS to [facility], Transfer form vc1 completed. X-rays sent w/ patient. 05:23 Condition: good 05:23 Instructed on the need for transfer. 05:58 Patient left the ED. jb4 Signatures: Dispatcher [employer] EDMS Sree Beard MD MD rn Bryson, James RN RN jb4 Reed Mata 2 Yenifer Arenas Ashby, RN RN as6 Amanda Bonilla RN RN ll3 Millicent Manuel RN RN vc1 Sophie Faustin Corrections: (The following items were deleted from the chart) 00:01 18 21:30 Allergies: NKDA; jb4 ll3 05/19 05:39 05:00 BP 162 / 70; Pulse 60bpm; Resp 18bpm; Pulse Ox 96% RA; vc1 vc1
[2021-11-18 00:38] LABS: Blood Morphology Comment NOT SEEN (NOT SEEN); Platelet Estimate ADEQ
[2021-11-18] MEDS ORDERED: PIPERACIL/TAZO 3.375 GM VIAL IV ONE (01:01)
[2021-11-18] MEDS ORDERED: MEPERIDINE HCL 25 MG/ML SYR ONE ×2 (01:01→02:39)
[2021-11-18] MEDS ORDERED: NA CHLORIDE 0.9% 100 ML ONE (01:03)
[2021-11-18] MEDS ORDERED: KCL 20 MEQ/100 mL IVPB 100 ML IV ONE (01:05)
[2021-11-18] MEDS ORDERED: D5.45NS W/KCL 20MEQ 1,000 ML IV ONE (02:39)
[2021-11-18 06:07] VITALS: TEMP 98.4
[2021-11-18 06:20] VITALS: BP 162/70; O2SAT 96
--- NOTE | 2021-11-18 11:13 | RAD REPORT ---
EXAM DESCRIPTION: CT - Abdomen Pelvis W Contrast - 11/18/2021 4:20 am CLINICAL HISTORY: Abdominal pain, acute, nonlocalized. COMPARISON: CT of the abdomen/pelvis from April 02, 2016. TECHNIQUE: CT of the abdomen and pelvis was performed following intravenous administration of iodina vladislav contrast. Arterial phase images through the abdomen, and portal venous phase images through the a bdomen and pelvis were obtained. Oral contrast was not administered. Axial, coronal, and sagittal sof t tissue window reconstructions were created and sent to PACS. This exam was performed according to our departmental dose-optimization program, which includes autom ated exposure control, adjustment of the mA and/or kV according to patient size and/or use of iterati ve reconstruction technique. FINDINGS: Thoracic: No significant abnormality. Hepatobiliary: No concerning hepatic lesion identified. The portal veins are patent. The gallbladder is surgically absent. Severe intra and extrahepatic biliary ductal dilatation, with the common bile d uct measuring up to 1.7 cm in diameter. Pancreas: Dilated main pancreatic duct, measuring 0.6 cm in the pancreatic head. Diffuse slightly irr egular mild pancreatic parenchymal atrophy. Spleen: Unremarkable. Gastrointestinal: Fullness in the second portion of the duodenum at the level of the ampulla, measuri ng approximately 3 cm in extent (axial series 401 image 35, coronal series 502 image 42). No evidence of bowel obstruction or perienteric inflammation. The appendix is nonvisualized, but there are no pe ricecal inflammatory changes. Wall thickening in the gastric body and fundus is favored related to un derdistention. Moderate left colonic diverticulosis. Adrenals: There are two hypodense lesions in the right adrenal gland, with a 2.3 cm indeterminate les ion, and a more superior 1.7 cm benign adenoma. The ones on the right are likely unchanged since 2016 . Thickening of the left adrenal gland with suspected indeterminate nodules measuring up to 1.2 cm, n ot definitely visualized on the prior exam. Renal: Trace bilateral perinephric fat stranding. No concerning parenchymal abnormality in either kid roya. No hydronephrosis or urolithiasis. Bladder/Reproductive: Unremarkable appearance of the urinary bladder by CT technique. Hysterectomy. R ight ovarian simple-appearing 4 cm cystic lesion. Vascular/Lymphatics: No lymphadenopathy identified by CT size criteria. Prominent calcific atheroscle rosis. Abdominal aorta is normal in caliber. Musculoskeletal: No concerning osseous lesion identified. Fluid / peritoneum: Unchanged lobulated low-density structure along the right lateral abdomen measuri ng 4 x 1.6 x 5.5 cm (AP x TV x CC). No significant free fluid. No free intraperitoneal air identifi ed. IMPRESSION 1. Severe biliary and pancreatic ductal dilatation with fullness in the second portion of the duodenum, highly concerning for a mass at the level of the ampulla. 2. Right ovarian 4 cm simple-appearing cyst. Recommend follow-up pelvic ultrasound in 6-12 months ( Reference: JACR 2019;17(2):248-254). 3. Indeterminate bilateral adrenal gland lesions. Consider correlation with dedicated adrenal [place] col imaging. 4. Unchanged low density lobulated structure in the left lateral abdomen, unlikely of clinical sign ificance based on stability since 2015. Electronically signed by: Lata Maynard MD 11/18/2021 1:00 AM CDT Due to temporary technical issues with the PACS/Fluency reporting system, reports are being signed by the in house radiologist without review as a courtesy to ensure prompt reporting. The interpreting r adiologist is fully responsible for the content of the report.
== END 2021-11-18 05:58 | disposition short-term general hospital (02) ==
LOC: ER 20:59
DX: E87.1 Hypo-osmolality and hyponatremia (principal); E87.6 Hypokalemia; K82.8 Other specified diseases of gallbladder; K87 Disorders of gallbladder, biliary tract and pancreas in diseases classified elsewhere; I10 Essential (primary) hypertension; E03.9 Hypothyroidism, unspecified; F17.210 Nicotine dependence, cigarettes, uncomplicated; Z85.828 Personal history of other malignant neoplasm of skin; Z20.822 Contact with and (suspected) exposure to COVID-19
CPT/HCPCS: 85025; 36415; 83690; 80053; 74177; 99285; U0003; Q9967; J2543; J3480; J2175 ×2; J7030; J2405; J2270

== ENCOUNTER 2023-04-05 08:29 | Inpatient (IN) | payer OTHER, BC ==
--- OUTSIDE RECORDS SUMMARY | 2023-04-05 08:38 | XMS REPORT | Continuity of Care Document ---
:1945 Author Organization [facility] t Address [address] [place] [address]. [address] [place] [address] Care Team Providers Name Role Phone Pcp, Patient Does Not Have A Primary Care Physician +1-000-0 00-0000 CHICO MOMIN Attending Clinician Unavailable CHICO MOMIN Attending Clinician Unavailable Erasmo Tovar MD Attending Clinician ERASMO TOVAR Attending Clinician Unavailable Nurse, [facility] Surgery Gu Attending Clinician Unavailable Maribeth Conrad Attending Clinician MARIBETH NOLASCO Attending Clinician Unavailable Nyla Lowery RN Attending Clinician Unavailable Gisella Boothe RN Attending Clinician Unavailable Galo Dc MD Attending Clinician Doctor Unassigned, [place] Attending Clinician Unavailable LILI BE Attending Clinician Unavailable Lili Be MD Attending Clinician SARA ONEAL Attending Clinician Unavailable Sara Oneal MD Attending Clinician CHRISTOS DENNY Attending Clinician Unavailable Christos Denny MD Attending Clinician Arlette Orozco MD Attending Clinician Only, [facility] Test Attending Clinician Unavailable Chris Zee MD Attending Clinician Andrew Marrero MD Attending Clinician Sha Mitchell DO Attending Clinician Danny FERNANDEZ, Emily Marie Attending Clinician Unavailable JOHNATHAN RICHARDS Attending Clinician Unavailable El BALDERAS, Johnathan Parham Attending Clinician Pantera Springer MD Attending Clinician CHICO MOMIN Admitting Clinician Unavailable ERASMO TOVAR Admitting Clinician Unavailable Erasmo Tovar MD Admitting Clinician ZANE WALLYARYAN Admitting Clinician Unavailable SARA ONEAL Admitting Clinician Unavailable CHRISTOS DENNY Admitting Clinician Unavailable Christos Denny MD Admitting Clinician JOHNATHAN RICHARDS Admitting Clinician Unavailable Johnathan Richards MD Admitting Clinician Payers Payer Name Policy Type Policy Number Effective Date Expiration Date S greg MEDICARE PART A \\T\\ [id number] 2012 B 00:00:00 [employer] TRADITIONAL [id number] 2012 00:00:00 Problems Condition Condition Condition Status Onset Resolution Last Treating Co mments Source Name Details Category Date Date Treatment Clinician Date Ampulla of Ampulla of Disease Active 2021-07 U nivers Vater mass Vater mass 0-07 it y of 00:00: Medical Branch Ampulla of Ampulla of Disease Active 2021-07 U nivers Vater mass Vater mass 0-07 it y of 00:00: 00 Medical Branch 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 Added automatic ally from request for surgery [id number] Colitis Colitis Disease Active Univers 5-19 ity of 00:00: 00 Medical Branch Allergies, Adverse Reactions, Alerts Allergy Allergy Status Severity Reaction(s) Onset Inactive Treating Comm ents Source Name Type Date Date Clinician Morphine Propensi Active Other - See Feel U nivers ty to comments 5- "Jitter[place] ity of adverse 00:00: and [place] reaction 00 displaced Medic al s " Branch MORPHINE DRUG Active Other-Cmnt Univ ers INGREDI 5-19 ity of 00:00: [place] 00 Medical Branch Social History Social Habit Start Date Stop Date Quantity Comments Source Sexual orientation Univer sity [facility] History of tobacco Smokes tobacco Un iversity of use daily [facility] Exposure to 2022-04-20 2022-04-30 Not sure University SARS-CoV-2 (event) 00:00:00 16:35:00 [facility] History of Social 2022-04-08 2022-04-08 Univers ity of function 00:00:00 00:00:00 [facility] Cigarettes smoked 2022-03-11 2022-03-11 Univers ity of current (pack per 00:00:00 00:00:00 [facility] ) - Reported Branch Cigarette 2022-03-11 2022-03-11 University of pack-years 00:00:00 00:00:00 [facility] Tobacco use and 2021-11-18 2021-11-18 Smokeless Universit y of exposure 00:00:00 00:00:00 tobacco non-user [facility] Sex Ass[birth year] Universit y of 00:00:00 00:00:00 [facility] Smoking Status Start Date Stop Date Source Ex-smoker 2022-03-31 00:00:00 2022-03-31 00:00:00 Universi ty [facility] Smokes tobacco daily 2021-11-18 00:00:00 [facility] ity of [facility] Medications Ordered Filled Start Stop Current Ordering Indication Dosage Frequency Signature Comments Components Source Medication Medication Date Date Medication? Clinician (SIG) Name Name calcium/mag 2021-07 Yes Take by Uni vers nesium/zinc 0-19 mouth. ity of ([facility] [address] Branch 333-133-5 mg Tab cyanocobala 2021-[address] Unive rs min, 0-19 under the ity of vitamin 09:40: tongue. [place] B-12, [address] [place] [address] (VITAMIN Branch B-12) 5,000 mcg/mL Drop calcium/mag 2021-07 Yes Take by Uni vers nesium/zinc 0-19 mouth. ity of (CALCIUM-MA 09:40: [facility] [address] Branch 333-133-5 mg Tab cyanocobala 2022-[address] Unive rs min, 0-19 under the ity of vitamin 09:40: tongue. [place] [facility] (VITAMIN Branch B-12) 5,000 mcg/mL Drop calcium/mag 2021- Yes Take by Uni vers nesium/zinc 0-19 mouth. ity of (CALCIUM-MA 09:40: [facility] [address] Branch 333-133-5 mg Tab cyanocobala 2021- Yes Place Unive rs min, 0-19 under the ity of vitamin 09:40: tongue. [place] [facility] (VITAMIN Branch B-12) 5,000 mcg/mL Drop calcium/mag 2021- Yes Take by Uni vers nesium/zinc 0-19 mouth. ity of ([facility] [address] 333-133-5 mg Tab cyanocobala 2021- Yes Place Unive rs min, 0-19 under the ity of vitamin 09:40: tongue. [place] [facility] (VITAMIN Branch B-12) 5,000 mcg/mL Drop calcium/mag 2021- Yes Take by Uni vers nesium/zinc 0-19 mouth. ity of (CALCIUM-MA 09:40: [facility] Branch 333-133-5 mg Tab cyanocobala 2021- Yes Place Unive rs min, 0-19 under the ity of vitamin 09:40: tongue. [place] [facility] (VITAMIN Branch B-12) 5,000 mcg/mL Drop calcium/mag 2021- Yes Take by Uni vers nesium/zinc 0-19 mouth. ity of (CALCIUM-MA 09:40[facility] [address] Branch 333-133-5 mg Tab cyanocobala 2021- Yes Place Unive rs min, 0-19 under the ity of vitamin 09:40: tongue. [place] [facility] (VITAMIN Branch B-12) 5,000 mcg/mL Drop calcium/mag 2021- Yes Take by Uni vers nesium/zinc 0-19 mouth. ity of (CALCIUM-MA 09:40[facility] [address] Branch 333-133-5 mg Tab cyanocobala 2021- Yes Place Unive rs min, 0-19 under the ity of vitamin 09:40: tongue. [place] B- 55 Medical (VITAMIN Branch B-12) 5,000 mcg/mL Drop calcium/mag 2021-1 Yes Take by Uni vers nesium/zinc 0-19 mouth. ity of (CALCIUM-MA 09:40: [facility] [address] Branch 333-133-5 mg Tab cyanocobala 2021- Yes Place Unive rs min, 0-19 under the ity of vitamin 09:40: tongue. [place] - Medical (VITAMIN Branch B-12) 5,000 mcg/mL Drop calcium/mag 2- Yes Take by Uni vers nesium/zinc 0-19 mouth. ity of (CALCIUM-MA 09:40: [facility] [address] Branch 333-133-5 mg Tab cyanocobala 2021- Yes Place Unive rs min, 0-19 under the ity of vitamin 09:40: tongue. [place] [facility] (VITAMIN Branch B-12) 5,000 mcg/mL Drop calcium/mag 2021- Yes Take by Uni vers nesium/zinc 0-19 mouth. ity of (CALCIUM-MA 09:40: [facility] [address] Branch 333-133-5 mg Tab cyanocobala 2021- Yes Place Unive rs min, 0-19 under the ity of vitamin 09:40: tongue. [place] - Medical (VITAMIN Branch B-12) 5,000 mcg/mL Drop calcium/mag 2021-1 Yes Take by Uni vers nesium/zinc 0-19 mouth. ity of (CALCIUM[facility]MA 09:40[facility] [address] Branch 333-133-5 mg Tab cyanocobala 2021- Yes Place Unive rs min, 0-19 under the ity of vitamin 09:40: tongue. [place] B- 55 Medical (VITAMIN Branch B-12) 5,000 mcg/mL Drop calcium/mag 2-1 Yes Take by Uni vers nesium/zinc 0-19 mouth. ity of (CALCIUM-MA 09:40: [facility] [address] Branch 333-133-5 mg Tab cyanocobala 2021- Yes Place Unive rs min, 0-19 under the ity of vitamin 09:40: tongue. [place] B- Medical (VITAMIN Branch B-12) 5,000 mcg/mL Drop calcium/mag 2021- Yes Take by Uni vers nesium/zinc 0-19 mouth. ity of ([facility]:40[facility] [address] Branch 333-133-5 mg Tab cyanocobala 2021- Yes Place Unive rs min, 0-19 under the ity of vitamin 09:40: tongue. [place] [facility] (VITAMIN Branch B-12) 5,000 mcg/mL Drop calcium/mag 2021- Yes Take by Uni vers nesium/zinc 0-19 mouth. ity of (CALCIUM-MA 09:40: [facility] [address] Branch 333-133-5 mg Tab cyanocobala 2021- Yes Place Unive rs min, 0-19 under the ity of vitamin 09:40: tongue. [place] [facility] (VITAMIN Branch B-12) 5,000 mcg/mL Drop calcium/mag 2021- Yes Take by Uni vers nesium/zinc 0-19 mouth. ity of (CALCIUM-MA 09:40: [facility] [address] Branch 333-133-5 mg Tab cyanocobala 2021- Yes Place Unive rs min, 0-19 under the ity of vitamin 09:40: tongue. [place] [facility] (VITAMIN Branch B-12) 5,000 mcg/mL Drop calcium/mag 2021-1 Yes Take by Uni vers nesium/zinc 0-19 mouth. ity of (CALCIUM-MA 09:40: [facility] [address] Branch 333-133-5 mg Tab cyanocobala 2021- Yes Place Unive rs min, 0-19 under the ity of vitamin 09:40: tongue. [place] [facility] (VITAMIN Branch B-12) 5,000 mcg/mL Drop calcium/mag 2021-1 Yes Take by Uni vers nesium/zinc 0-19 mouth. ity of (CALCIUM-MA 09:40: [facility] [address] Branch 333-133-5 mg Tab cyanocobala 2021-[address] Unive rs min, 0-19 under the ity of vitamin 09:40: tongue. [place] B Medical (VITAMIN Branch B-12) 5,000 mcg/mL Drop calcium/mag 2021-07 Yes Take by Uni vers nesium/zinc 0-19 mouth. ity of (CALCIUM-MA 09:40: [facility] [address] Branch 333-133-5 mg Tab cyanocobala 2021-[address] Unive rs min, 0-19 under the ity of vitamin 09:40: tongue. [place] [facility] (VITAMIN Branch B-12) 5,000 mcg/mL Drop calcium/mag 2021-07 Yes Take by Uni vers nesium/zinc 0-19 mouth. ity of (CALCIUM-MA 09:40: [address]) Branch 333-133-5 mg Tab cyanocobala 2021-[address] Unive rs min, 0-19 under the ity of vitamin 09:40: tongue. [place] [facility] (VITAMIN Branch B-12) 5,000 mcg/mL Drop tamsulosin 2021-07- No [id number] .4mg Take 1 Univers 0.4 mg 24 0-18 11-02 capsule by ity of hr capsule 00:00: 04:59 mouth in [place] 00 :00 the Medical morning Branch for 14 days. polyethylen 2021-07- No [id number] 17g Take 1 Univers e glycol 0-18 11-02 Packet by ity o f 3350 17 00:00: 04:59 mouth in [place] gram powder 00 :00 the Medical morning Branch for 14 days. tamsulosin 2021-07- No [id number] .4mg Take 1 Univers 0.4 mg 24 0-18 11-02 capsule by ity of hr capsule 00:00: 04:59 mouth in [place] 00 :00 the Medical morning Branch for 14 days. polyethylen 2021-07- No [id number] 17g Take 1 Univers e glycol 0-18 11-02 Packet by ity o f 3350 17 00:00: 04:59 mouth in [place] gram powder 00 :00 the Medical morning Branch for 14 days. tamsulosin 2021-07- No [id number] .4mg Take 1 Univers 0.4 mg 24 0-18 11-02 capsule by ity of hr capsule 00:00: 04:59 mouth in [place] 00 :00 the Medical morning Branch for 14 days. polyethylen 2021-07- No [id number] 17g Take 1 Univers e glycol 0-18 11-02 Packet by ity o f 3350 17 00:00: 04:59 mouth in [place] gram powder 00 :00 the Medical morning Branch for 14 days. tamsulosin 2021-07- No [id number] .4mg Take 1 Univers 0.4 mg 24 0-18 11-02 capsule by ity of hr capsule 00:00: 04:59 mouth in [place] 00 :00 the Medical morning Branch for 14 days. polyethylen 2021-07- No [id number] 17g Take 1 Univers e glycol 0-18 11-02 Packet by ity o f 3350 17 00:00: 04:59 mouth in [place] gram powder 00 :00 the Medical morning Branch for 14 days. tamsulosin 2021-07- No [id number] .4mg Take 1 Univers 0.4 mg 24 0-18 11-02 capsule by ity of hr capsule 00:00: 04:59 mouth in [place] 00 :00 the Medical morning Branch for 14 days. polyethylen 2021-07- No [id number] 17g Take 1 Univers e glycol 0-18 11-02 Packet by ity o f 3350 17 00:00: 04:59 mouth in [place] gram powder 00 :00 the Medical morning Branch for 14 days. tamsulosin 2021-07- No [id number] .4mg Take 1 Univers 0.4 mg 24 0-18 11-02 capsule by ity of hr capsule 00:00: 04:59 mouth in [place] 00 :00 the Medical morning Branch for 14 days. polyethylen 2021-07- No [id number] 17g Take 1 Univers e glycol 0-18 11-02 Packet by ity o f 3350 17 00:00: 04:59 mouth in [place] gram powder 00 :00 the Medical morning Branch for 14 days. tamsulosin 2021-07- No [id number] .4mg Take 1 Univers 0.4 mg 24 0-18 11-02 capsule by ity of hr capsule 00:00: 04:59 mouth in [place] 00 :00 the Medical morning Branch for 14 days. polyethylen 2021-07- No [id number] 17g Take 1 Univers e glycol 0-18 11-02 Packet by ity o f 3350 17 00:00: 04:59 mouth in [place] gram powder 00 :00 the Medical morning Branch for 14 days. tamsulosin 2021-07- No [id number] .4mg Take 1 Univers 0.4 mg 24 0-18 11-02 capsule by ity of hr capsule 00:00: 04:59 mouth in [place] 00 :00 the [facility] morning Branch for 14 days. polyethylen 2021-07- No [id number] 17g Take 1 Univers e glycol 0-18 11-02 Packet by ity o f 3350 17 00:00: 04:59 mouth in [place] gram powder 00 :00 the [facility] morning Branch for 14 days. tamsulosin 2021-07- No [id number] .4mg Take 1 Univers 0.4 mg 24 0-18 11-02 capsule by ity of hr capsule 00:00: 04:59 mouth in [place] 00 :00 the [facility] morning Branch for 14 days. polyethylen 2021-07- No [id number] 17g Take 1 Univers e glycol 0-18 11-02 Packet by ity o f 3350 17 00:00: 04:59 mouth in [place] gram powder 00 :00 the Medical morning Branch for 14 days. tamsulosin 2021-07- No [id number] .4mg Take 1 Univers 0.4 mg 24 0-18 11-02 capsule by ity of hr capsule 00:00: 04:59 mouth in [place] 00 :00 the Medical morning Branch for 14 days. polyethylen 2021-07- No [id number] 17g Take 1 Univers e glycol 0-18 11-02 Packet by ity o f 3350 17 00:00: 04:59 mouth in [place] gram powder 00 :00 the Medical morning Branch for 14 days. tamsulosin 2021-07- No [id number] .4mg Take 1 Univers 0.4 mg 24 0-18 11-02 capsule by ity of hr capsule 00:00: 04:59 mouth in [place] 00 :00 the Medical morning Branch for 14 days. polyethylen 2021-07- No [id number] 17g Take 1 Univers e glycol 0-18 11-02 Packet by ity o f 3350 17 00:00: 04:59 mouth in [place] gram powder 00 :00 the Medical morning Branch for 14 days. tamsulosin 2021-07- No [id number] .4mg Take 1 Univers 0.4 mg 24 0-18 11-02 capsule by ity of hr capsule 00:00: 04:59 mouth in [place] 00 :00 the [facility] morning Branch for 14 days. polyethylen 2021-07- No [id number] 17g Take 1 Univers e glycol 0-18 11-02 Packet by ity o f 3350 17 00:00: 04:59 mouth in [place] gram powder 00 :00 the [facility] morning Branch for 14 days. tamsulosin 2021-07- No [id number] .4mg Take 1 Univers 0.4 mg 24 0-18 11-02 capsule by ity of hr capsule 00:00: 04:59 mouth in [place] 00 :00 the [facility] morning Branch for 14 days. polyethylen 2021-07- No [id number] 17g Take 1 Univers e glycol 0-18 11-02 Packet by ity o f 3350 17 00:00: 04:59 mouth in [place] gram powder 00 :00 the [facility] morning Branch for 14 days. tamsulosin 2021-07- No [id number] .4mg Take 1 Univers 0.4 mg 24 0-18 11-02 capsule by ity of hr capsule 00:00: 04:59 mouth in [place] 00 :00 the [facility] morning Branch for 14 days. polyethylen 2021-07- No [id number] 17g Take 1 Univers e glycol 0-18 11-02 Packet by ity o f 3350 17 00:00: 04:59 mouth in [place] gram powder 00 :00 the Medical morning Branch for 14 days. KCL 2021-07- No 40meq 40 mEq, Univers (KLOR-CON 0-17 10-17 Oral, ity of M20) tablet 21:00: 22:14 ONCE, 1 [place] 40 mEq 00 :00 dose, On Medical Mon Branch 04/18/22 at 1600, Routine Levothyroxi 2021-07 Yes Take by Uni vers ne 112 mcg 0-17 mouth. ity of capsule 17:50: [address] omeprazole 2021-07 Yes 40mg Take 40 mg U nivers 20 mg 0-17 by mouth ity of capsule 17:50: daily. [address] mesalamine 2021-07 Yes 1200mg Take 1,200 Univers 1.2 gram EC 0-17 mg by ity of tablet 17:50: mouth 4 [place] [address] (four) Medical [facility] daily. hydrALAZINE 2021-07 Yes 50mg Take 50 mg Univers 50 mg 0-17 by mouth 2 ity of tablet 17:50: (two) [place] [address] times [facility] daily. Branch budesonide 2021-07 Yes 9mg Take 9 mg Un gretchen 3 mg 24 hr 0-17 by mouth ity o f capsule 17:50: every [place] [address] morning. Medical Branch carvediloL 2021-07 Yes 25mg Take 25 mg U nivers 25 mg 0-17 by mouth 2 ity of tablet 17:50: (two) [address] daily with Branch meals. aspirin 81 2021-07 Yes 81mg Take 81 mg U nivers mg chewable 0-17 by mouth ity of tablet 17:50: daily. [address] calcium/mag 2021-07 Yes Take by Uni vers nesium/zinc 0-17 mouth. ity of (CALCIUM-MA 17:50: [place] GNESUIUM-ZI [address] [place] [address]) Branch 333-133-5 mg Tab Cholecalcif 2021-07 Yes Take by Uni vers naresh, 0-17 mouth. ity of Vitamin D3, 17:50: [place] [facility] Medical (5,000 Branch unit) tablet cyanocobala 2021-[address] Unive rs min, 0-17 under the ity of vitamin 17:50: tongue. [place] B-12, Medical (VITAMIN Branch B-12) 5,000 mcg/mL Drop ALPRAZolam 2021-07 Yes .25mg Take 0.25 U nivers (XANAX) 0-17 mg by ity of 0.25 mg 17:50: mouth [place] tablet 04 now. Medical Branch Levothyroxi 2021-07 Yes Take by Uni vers ne 112 mcg 0-17 mouth. ity of capsule 17:50: [place] [address] Medical Branch omeprazole 2021-07 Yes 40mg Take 40 mg U nivers 20 mg 0-17 by mouth ity of capsule 17:50: daily. [place] [address] Medical Branch mesalamine 2021-07 Yes 1200mg Take 1,200 Univers 1.2 gram EC 0-17 mg by ity of tablet 17:50: mouth 4 [place] [address] (four) Medical times Branch daily. hydrALAZINE 2021-07 Yes 50mg Take 50 mg Univers 50 mg 0-17 by mouth 2 ity of tablet 17:50: (two) [place] [address] times Medical daily. Branch budesonide 2021-07 Yes 9mg Take 9 mg Un gretchen 3 mg 24 hr 0-17 by mouth ity o f capsule 17:50: every [place] [address] morning. Medical Branch carvediloL 2021-07 Yes 25mg Take 25 mg U nivers 25 mg 0-17 by mouth 2 ity of tablet 17:50: (two) [place] [address] times Medical daily with Branch meals. aspirin 81 2021-07 Yes 81mg Take 81 mg U nivers mg chewable 0-17 by mouth ity of tablet 17:50: daily. [place] [address] Medical Branch calcium/mag 2021-07 Yes Take by Uni vers nesium/zinc 0-17 mouth. ity of (CALCIUM-MA 17:50: [place] GNESUIUM-ZI [address] [place] [address]) Branch 333-133-5 mg Tab Cholecalcif 2021-07 Yes Take by Uni vers naresh, 0-17 mouth. ity of Vitamin D3, 17:50: [place] [facility] Medical (5,000 Branch unit) tablet cyanocobala 2021-[address] Unive rs min, 0-17 under the ity of vitamin 17:50: tongue. [place] B-12, Medical (VITAMIN Branch B-12) 5,000 mcg/mL Drop ALPRAZolam 2021-07 Yes .25mg Take 0.25 U nivers (XANAX) 0-17 mg by ity of 0.25 mg 17:50: mouth [place] tablet 04 now. Medical Branch Levothyroxi 2021-07 Yes Take by Uni vers ne 112 mcg 0-17 mouth. ity of capsule 17:50: [place] [address] Medical Branch omeprazole 2021-07 Yes 40mg Take 40 mg U nivers 20 mg 0-17 by mouth ity of capsule 17:50: daily. [place] [address] Medical Branch mesalamine 2021-07 Yes 1200mg Take 1,200 Univers 1.2 gram EC 0-17 mg by ity of tablet 17:50: mouth 4 [place] [address] (four) Medical times Branch daily. hydrALAZINE 2021-07 Yes 50mg Take 50 mg Univers 50 mg 0-17 by mouth 2 ity of tablet 17:50: (two) [place] [address] times [facility] daily. Branch budesonide 2021-07 Yes 9mg Take 9 mg Un gretchen 3 mg 24 hr 0-17 by mouth ity o f capsule 17:50: every [place] [address] morning. Medical Branch carvediloL 2021-07 Yes 25mg Take 25 mg U nivers 25 mg 0-17 by mouth 2 ity of tablet 17:50: (two) [place] [address] times [facility] daily with Branch meals. aspirin 81 2021-07 Yes 81mg Take 81 mg U nivers mg chewable 0-17 by mouth ity of tablet 17:50: daily. [address] Branch Cholecalcif 2021-07 Yes Take by Uni vers naresh, 0-17 mouth. ity of Vitamin D3, 17:50: [place] 125 [facility] Medical (5,000 Branch unit) tablet ALPRAZolam 2021-07 Yes .25mg Take 0.25 U nivers (XANAX) 0-17 mg by ity of 0.25 mg 17:50: mouth [place] tablet 04 now. Medical Branch Levothyroxi 2021-07 Yes Take by Uni vers ne 112 mcg 0-17 mouth. ity of capsule 17:50: [place] [address] Medical Branch omeprazole 2021-07 Yes 40mg Take 40 mg U nivers 20 mg 0-17 by mouth ity of capsule 17:50: daily. [place] [address] Medical Branch mesalamine 2021-07 Yes 1200mg Take 1,200 Univers 1.2 gram EC 0-17 mg by ity of tablet 17:50: mouth 4 [place] [address] (four) Medical times [place] daily. hydrALAZINE 2021-07 Yes 50mg Take 50 mg Univers 50 mg 0-17 by mouth 2 ity of tablet 17:50: (two) times Medical daily. Branch budesonide 2021-07 Yes 9mg Take 9 mg Un gretchen 3 mg 24 hr 0-17 by mouth ity o f capsule 17:50: every morning. Medical Branch carvediloL 2021-07 Yes 25mg Take 25 mg U nivers 25 mg 0-17 by mouth 2 ity of tablet 17:50: (two) times Medical daily with Branch meals. aspirin 81 2021-07 Yes 81mg Take 81 mg U nivers mg chewable 0-17 by mouth ity of tablet 17:50: daily. Medical Branch Cholecalcif 2021-07 Yes Take by Uni vers naresh, 0-17 mouth. ity of Vitamin D3, 17:50: [place] 125 mcg 04 Medical (5,000 Branch unit) tablet ALPRAZolam 2021-07 Yes .25mg Take 0.25 U nivers (XANAX) 0-17 mg by ity of 0.25 mg 17:50: mouth [place] tablet 04 now. Medical Branch Levothyroxi 2021-07 Yes Take by Uni vers ne 112 mcg 0-17 mouth. ity of capsule 17:50: Medical Branch omeprazole 2021-07 Yes 40mg Take 40 mg U nivers 20 mg 0-17 by mouth ity of capsule 17:50: daily. Medical Branch mesalamine 2021-07 Yes 1200mg Take 1,200 Univers 1.2 gram EC 0-17 mg by ity of tablet 17:50: mouth 4 04 (four) Medical times Branch daily. hydrALAZINE 2021-07 Yes 50mg Take 50 mg Univers 50 mg 0-17 by mouth 2 ity of tablet 17:50: (two) [place] 04 times Medical daily. Branch budesonide 2021-07 Yes 9mg Take 9 mg Un gretchen 3 mg 24 hr 0-17 by mouth ity o f capsule 17:50: every morning. Medical Branch carvediloL 2021-07 Yes 25mg Take 25 mg U nivers 25 mg 0-17 by mouth 2 ity of tablet 17:50: (two) times Medical daily with Branch meals. aspirin 81 2021-07 Yes 81mg Take 81 mg U nivers mg chewable 0-17 by mouth ity of tablet 17:50: daily. Medical Branch Cholecalcif 2021-07 Yes Take by Uni vers naresh, 0-17 mouth. ity of Vitamin D3, 17:50: [place] 125 mcg 04 Medical (5,000 Branch unit) tablet ALPRAZolam 2021-07 Yes .25mg Take 0.25 U nivers (XANAX) 0-17 mg by ity of 0.25 mg 17:50: mouth [place] tablet 04 now. Medical Branch Levothyroxi 2021-07 Yes Take by Uni vers ne 112 mcg 0-17 mouth. ity of capsule 17:50: Medical Branch omeprazole 2021-07 Yes 40mg Take 40 mg U nivers 20 mg 0-17 by mouth ity of capsule 17:50: daily. Medical Branch mesalamine 2021-07 Yes 1200mg Take 1,200 Univers 1.2 gram EC 0-17 mg by ity of tablet 17:50: mouth 4 (four) Medical times Branch daily. hydrALAZINE 2021-07 Yes 50mg Take 50 mg Univers 50 mg 0-17 by mouth 2 ity of tablet 17:50: (two) [place] [address] times Medical daily. Branch budesonide 2021-07 Yes 9mg Take 9 mg Un gretchen 3 mg 24 hr 0-17 by mouth ity o f capsule 17:50: every morning. Medical Branch carvediloL 2021-07 Yes 25mg Take 25 mg U nivers 25 mg 0-17 by mouth 2 ity of tablet 17:50: (two) [place] [address] times Medical daily with Branch meals. aspirin 81 2021-07 Yes 81mg Take 81 mg U nivers mg chewable 0-17 by mouth ity of tablet 17:50: daily. Medical Branch Cholecalcif 2021-07 Yes Take by Uni vers naresh, 0-17 mouth. ity of Vitamin D3, 17:50: [place] 125 mcg 04 Medical (5,000 Branch unit) tablet ALPRAZolam 2021-07 Yes .25mg Take 0.25 U nivers (XANAX) 0-17 mg by ity of 0.25 mg 17:50: mouth [place] tablet 04 now. Medical Branch Levothyroxi 2021-07 Yes Take by Uni vers ne 112 mcg 0-17 mouth. ity of capsule 17:50: [address] Branch omeprazole 2021-07 Yes 40mg Take 40 mg U nivers 20 mg 0-17 by mouth ity of capsule 17:50: daily. [address] [address] [facility] mesalamine 2021-07 Yes 1200mg Take 1,200 [facility] 1.2 gram EC 0-17 mg by ity of tablet 17:50: mouth 4 [place] [address] (four) Medical times Branch daily. hydrALAZINE 2021-07 Yes 50mg Take 50 mg [facility] 50 mg 0-17 by mouth 2 ity of tablet 17:50: (two) [place] [address] times Medical daily. Branch budesonide 2021-07 Yes 9mg Take 9 mg [place] 3 mg 24 hr 0-17 by mouth ity o f capsule 17:50: every [place] [address] morning. Medical Branch carvediloL 2021-07 Yes 25mg Take 25 mg U nivers 25 mg 0-17 by mouth 2 ity of tablet 17:50: (two) [address] daily with Branch meals. aspirin 81 2021-07 Yes 81mg Take 81 mg U nivers mg chewable 0-17 by mouth ity of tablet 17:50: daily. [address] Branch Cholecalcif 2021-07 Yes Take by Uni vers naresh, 0-17 mouth. ity of Vitamin D3, 17:50: [place] [address] (5,000 Branch unit) tablet ALPRAZolam 2021-07 Yes .25mg Take 0.25 U nivers (XANAX) 0-17 mg by ity of 0.25 mg 17:50: mouth [place] tablet 04 now. Medical Branch Levothyroxi 2021-07 Yes Take by Uni vers ne 112 mcg 0-17 mouth. ity of capsule 17:50: [address] Branch omeprazole 2021-07 Yes 40mg Take 40 mg U nivers 20 mg 0-17 by mouth ity of capsule 17:50: daily. [address] Branch mesalamine 2021-07 Yes 1200mg Take 1,200 [facility] 1.2 gram EC 0-17 mg by ity of tablet 17:50: mouth 4 [place] [address] (four) Medical times [place] daily. hydrALAZINE 2021-07 Yes 50mg Take 50 mg [facility] 50 mg 0-17 by mouth 2 ity of tablet 17:50: (two) times Medical daily. Branch budesonide 2021-07 Yes 9mg Take 9 mg [place] 3 mg 24 hr 0-17 by mouth ity o f capsule 17:50: every morning. Medical Branch carvediloL 2021-07 Yes 25mg Take 25 mg U nivers 25 mg 0-17 by mouth 2 ity of tablet 17:50: (two) times Medical daily with Branch meals. aspirin 81 2021-07 Yes 81mg Take 81 mg U nivers mg chewable 0-17 by mouth ity of tablet 17:50: daily. [place] [address] Medical Branch Cholecalcif 2021-07 Yes Take by Uni vers naresh, 0-17 mouth. ity of Vitamin D3, 17:50: [place] 125 mcg Medical (5,000 Branch unit) tablet ALPRAZolam 2021-07 Yes .25mg Take 0.25 U nivers (XANAX) 0-17 mg by ity of 0.25 mg 17:50: mouth once [place] tablet 04 now. Medical Branch Levothyroxi 2021-07 Yes Take by Uni vers ne 112 mcg 0-17 mouth. ity of capsule 17:50: [place] [address] Medical Branch omeprazole 2021-07 Yes 40mg Take 40 mg U nivers 20 mg 0-17 by mouth ity of capsule 17:50: daily. [place] [address] Medical Branch mesalamine 2021-07 Yes 1200mg Take 1,200 [facility] 1.2 gram EC 0-17 mg by ity of tablet 17:50: mouth 4 (four) Medical times Branch daily. hydrALAZINE 2021-07 Yes 50mg Take 50 mg [facility] 50 mg 0-17 by mouth 2 ity of tablet 17:50: (two) [place] [address] times Medical daily. Branch budesonide 2021-07 Yes 9mg Take 9 mg [place] 3 mg 24 hr 0-17 by mouth ity o f capsule 17:50: every morning. Medical Branch carvediloL 2021-07 Yes 25mg Take 25 mg U nivers 25 mg 0-17 by mouth 2 ity of tablet 17:50: (two) [place] [address] times Medical daily with Branch meals. aspirin 81 2021-07 Yes 81mg Take 81 mg U nivers mg chewable 0-17 by mouth ity of tablet 17:50: daily. Medical Branch Cholecalcif 2021-07 Yes Take by [facility] vers naresh, 0-17 mouth. ity of Vitamin D3, 17:50: [place] 125 mcg 04 Medical (5,000 Branch unit) tablet ALPRAZolam 2021-07 Yes .25mg Take 0.25 U nivers (XANAX) 0-17 mg by ity of 0.25 mg 17:50: mouth once [place] tablet 04 now. Medical Branch Levothyroxi 2021-07 Yes Take by [facility] vers ne 112 mcg 0-17 mouth. ity of capsule 17:50: Medical Branch omeprazole 2021-07 Yes 40mg Take 40 mg U nivers 20 mg 0-17 by mouth ity of capsule 17:50: daily. Medical Branch mesalamine 2021-07 Yes 1200mg Take 1,200 [facility] 1.2 gram EC 0-17 mg by ity of tablet 17:50: mouth 4 (four) Medical times Branch daily. hydrALAZINE 2021-07 Yes 50mg Take 50 mg [facility] 50 mg 0-17 by mouth 2 ity of tablet 17:50: (two) [place] [address] times Medical daily. Branch budesonide 2021-07 Yes 9mg Take 9 mg [place] 3 mg 24 hr 0-17 by mouth ity o f capsule 17:50: every [place] [address] morning. Medical Branch carvediloL 2021-07 Yes 25mg Take 25 mg U nivers 25 mg 0-17 by mouth 2 ity of tablet 17:50: (two) [place] [address] times Medical daily with Branch meals. aspirin 81 2021-07 Yes 81mg Take 81 mg U nivers mg chewable 0-17 by mouth ity of tablet 17:50: daily. Medical Branch Cholecalcif 2021-07 Yes Take by [facility] vers naresh, 0-17 mouth. ity of Vitamin D3, 17:50: [place] 125 mcg 04 Medical (5,000 Branch unit) tablet ALPRAZolam 2021-07 Yes .25mg Take 0.25 U nivers (XANAX) 0-17 mg by ity of 0.25 mg 17:50: mouth once [place] tablet 04 now. Medical Branch Levothyroxi 2021-07 Yes Take by Uni vers ne 112 mcg 0-17 mouth. ity of capsule 17:50: [place] 04 Medical Branch omeprazole 2021-07 Yes 40mg Take 40 mg U nivers 20 mg 0-17 by mouth ity of capsule 17:50: daily. [address] Branch mesalamine 2021-07 Yes 1200mg Take 1,200 [facility] 1.2 gram EC 0-17 mg by ity of tablet 17:50: mouth 4 (four) Medical times [place] daily. hydrALAZINE 2021-07 Yes 50mg Take 50 mg [facility] 50 mg 0-17 by mouth 2 ity of tablet 17:50: (two) [place] [address] times Medical daily. Branch budesonide 2021-07 Yes 9mg Take 9 mg [place] 3 mg 24 hr 0-17 by mouth ity o f capsule 17:50: every [place] [address] morning. Medical Branch carvediloL 2021-07 Yes 25mg Take 25 mg U nivers 25 mg 0-17 by mouth 2 ity of tablet 17:50: (two) [address] daily with Branch meals. aspirin 81 2021-07 Yes 81mg Take 81 mg U nivers mg chewable 0-17 by mouth ity of tablet 17:50: daily. [address] Branch Cholecalcif 2021-07 Yes Take by Uni vers naresh, 0-17 mouth. ity of Vitamin D3, 17:50: [place] 125 [facility] (5,000 Branch unit) tablet ALPRAZolam 2021-07 Yes .25mg Take 0.25 U nivers (XANAX) 0-17 mg by ity of 0.25 mg 17:50: mouth once [place] tablet 04 now. Medical Branch Levothyroxi 2021-07 Yes Take by Uni vers ne 112 mcg 0-17 mouth. ity of capsule 17:50: [address] Branch omeprazole 2021-07 Yes 40mg Take 40 mg U nivers 20 mg 0-17 by mouth ity of capsule 17:50: daily. [address] mesalamine 2021-07 Yes 1200mg Take 1,200 [facility] 1.2 gram EC 0-17 mg by ity of tablet 17:50: mouth 4 [place] [address] (four) Medical times [place] daily. hydrALAZINE 2021-07 Yes 50mg Take 50 mg [facility] 50 mg 0-17 by mouth 2 ity of tablet 17:50: (two) [place] [address] times Medical daily. Branch budesonide 2021-07 Yes 9mg Take 9 mg [place] 3 mg 24 hr 0-17 by mouth ity o f capsule 17:50: every [place] morning. Medical Branch carvediloL 2021-07 Yes 25mg Take 25 mg U nivers 25 mg 0-17 by mouth 2 ity of tablet 17:50: (two) [place] [address] times Medical daily with Branch meals. aspirin 81 2021-07 Yes 81mg Take 81 mg U nivers mg chewable 0-17 by mouth ity of tablet 17:50: daily. [place] [address] Medical Branch Cholecalcif 2021-07 Yes Take by Uni vers naresh, 0-17 mouth. ity of Vitamin D3, 17:50: [place] 125 mcg Medical (5,000 Branch unit) tablet ALPRAZolam 2021-07 Yes .25mg Take 0.25 U nivers (XANAX) 0-17 mg by ity of 0.25 mg 17:50: mouth once [place] tablet 04 now. Medical Branch Levothyroxi 2021-07 Yes Take by Uni vers ne 112 mcg 0-17 mouth. ity of capsule 17:50: [place] [address] Medical Branch omeprazole 2021-07 Yes 40mg Take 40 mg U nivers 20 mg 0-17 by mouth ity of capsule 17:50: daily. [place] [address] Medical Branch mesalamine 2021-07 Yes 1200mg Take 1,200 [facility] 1.2 gram EC 0-17 mg by ity of tablet 17:50: mouth 4 (four) Medical times Branch daily. hydrALAZINE 2021-07 Yes 50mg Take 50 mg [facility] 50 mg 0-17 by mouth 2 ity of tablet 17:50: (two) [place] [address] times Medical daily. Branch budesonide 2021-07 Yes 9mg Take 9 mg [place] 3 mg 24 hr 0-17 by mouth ity o f capsule 17:50: every [place] [address] morning. Medical Branch carvediloL 2021-07 Yes 25mg Take 25 mg U nivers 25 mg 0-17 by mouth 2 ity of tablet 17:50: (two) [place] [address] times Medical daily with Branch meals. aspirin 81 2021-07 Yes 81mg Take 81 mg U nivers mg chewable 0-17 by mouth ity of tablet 17:50: daily. [place] [address] Medical Branch Cholecalcif 2021-07 Yes Take by Uni vers naresh, 0-17 mouth. ity of Vitamin D3, 17:50: [place] 125 mcg 04 Medical (5,000 Branch unit) tablet ALPRAZolam 2021-07 Yes .25mg Take 0.25 U nivers (XANAX) 0-17 mg by ity of 0.25 mg 17:50: mouth once [place] tablet 04 now. Medical Branch Levothyroxi 2021-07 Yes Take by Uni vers ne 112 mcg 0-17 mouth. ity of capsule 17:50: Medical Branch omeprazole 2021-07 Yes 40mg Take 40 mg U nivers 20 mg 0-17 by mouth ity of capsule 17:50: daily. Medical Branch mesalamine 2021-07 Yes 1200mg Take 1,200 [facility] 1.2 gram EC 0-17 mg by ity of tablet 17:50: mouth 4 (four) Medical times Branch daily. hydrALAZINE 2021-07 Yes 50mg Take 50 mg [facility] 50 mg 0-17 by mouth 2 ity of tablet 17:50: (two) [place] [address] times Medical daily. Branch budesonide 2021-07 Yes 9mg Take 9 mg [place] 3 mg 24 hr 0-17 by mouth ity o f capsule 17:50: every morning. Medical Branch carvediloL 2021-07 Yes 25mg Take 25 mg U nivers 25 mg 0-17 by mouth 2 ity of tablet 17:50: (two) [place] [address] times Medical daily with Branch meals. aspirin 81 2021-07 Yes 81mg Take 81 mg U nivers mg chewable 0-17 by mouth ity of tablet 17:50: daily. Medical Branch Cholecalcif 2021-07 Yes Take by Uni vers naresh, 0-17 mouth. ity of Vitamin D3, 17:50: [place] 125 mcg 04 Medical (5,000 Branch unit) tablet ALPRAZolam 2021-07 Yes .25mg Take 0.25 U nivers (XANAX) 0-17 mg by ity of 0.25 mg 17:50: mouth once [place] tablet 04 now. Medical Branch Levothyroxi 2021-07 Yes Take by Uni vers ne 112 mcg 0-17 mouth. ity of capsule 17:50: Medical Branch omeprazole 2021-07 Yes 40mg Take 40 mg U nivers 20 mg 0-17 by mouth ity of capsule 17:50: daily. [address] Branch mesalamine 2021-07 Yes 1200mg Take 1,200 [facility] 1.2 gram EC 0-17 mg by ity of tablet 17:50: mouth 4 (four) Medical times [place] daily. hydrALAZINE 2021-07 Yes 50mg Take 50 mg [facility] 50 mg 0-17 by mouth 2 ity of tablet 17:50: (two) [place] [address] times Medical daily. Branch budesonide 2021-07 Yes 9mg Take 9 mg [place] 3 mg 24 hr 0-17 by mouth ity o f capsule 17:50: every [place] [address] morning. Medical Branch carvediloL 2021-07 Yes 25mg Take 25 mg U nivers 25 mg 0-17 by mouth 2 ity of tablet 17:50: (two) [place] [address] times [facility] daily with Branch meals. aspirin 81 2021-07 Yes 81mg Take 81 mg U nivers mg chewable 0-17 by mouth ity of tablet 17:50: daily. [address] Branch Cholecalcif 2021-07 Yes Take by Uni vers naresh, 0-17 mouth. ity of Vitamin D3, 17:50: [place] 125 mcg Medical (5,000 Branch unit) tablet ALPRAZolam 2021-07 Yes .25mg Take 0.25 U nivers (XANAX) 0-17 mg by ity of 0.25 mg 17:50: mouth once [place] tablet 04 now. Medical Branch Levothyroxi 2021-07 Yes Take by Uni vers ne 112 mcg 0-17 mouth. ity of capsule 17:50: [address] Branch omeprazole 2021-07 Yes 40mg Take 40 mg U nivers 20 mg 0-17 by mouth ity of capsule 17:50: daily. [address] Branch mesalamine 2021-07 Yes 1200mg Take 1,200 [facility] 1.2 gram EC 0-17 mg by ity of tablet 17:50: mouth 4 (four) Medical times [place] daily. hydrALAZINE 2021-07 Yes 50mg Take 50 mg [facility] 50 mg 0-17 by mouth 2 ity of tablet 17:50: (two) [place] [address] times Medical daily. Branch budesonide 2021-07 Yes 9mg Take 9 mg [place] 3 mg 24 hr 0-17 by mouth ity o f capsule 17:50: every [place] morning. Medical Branch carvediloL 2021-07 Yes 25mg Take 25 mg U nivers 25 mg 0-17 by mouth 2 ity of tablet 17:50: (two) [place] [address] times Medical daily with Branch meals. aspirin 81 2021-07 Yes 81mg Take 81 mg U nivers mg chewable 0-17 by mouth ity of tablet 17:50: daily. Medical Branch Cholecalcif 2021-07 Yes Take by Uni vers naresh, 0-17 mouth. ity of Vitamin D3, 17:50: [place] 125 mcg Medical (5,000 Branch unit) tablet ALPRAZolam 2021-07 Yes .25mg Take 0.25 U nivers (XANAX) 0-17 mg by ity of 0.25 mg 17:50: mouth once [place] tablet 04 now. Medical Branch Levothyroxi 2021-07 Yes Take by Uni vers ne 112 mcg 0-17 mouth. ity of capsule 17:50: Medical Branch omeprazole 2021-07 Yes 40mg Take 40 mg U nivers 20 mg 0-17 by mouth ity of capsule 17:50: daily. [address] Branch mesalamine 2021-07 Yes 1200mg Take 1,200 [facility] 1.2 gram EC 0-17 mg by ity of tablet 17:50: mouth 4 (four) Medical times Branch daily. hydrALAZINE 2021-07 Yes 50mg Take 50 mg [facility] 50 mg 0-17 by mouth 2 ity of tablet 17:50: (two) [place] [address] times Medical daily. Branch budesonide 2021-07 Yes 9mg Take 9 mg [place] 3 mg 24 hr 0-17 by mouth ity o f capsule 17:50: every [place] [address] morning. Medical Branch carvediloL 2021-07 Yes 25mg Take 25 mg U nivers 25 mg 0-17 by mouth 2 ity of tablet 17:50: (two) [place] [address] times Medical daily with Branch meals. aspirin 81 2021-07 Yes 81mg Take 81 mg U nivers mg chewable 0-17 by mouth ity of tablet 17:50: daily. Medical Branch Cholecalcif 2021-07 Yes Take by Uni vers naresh, 0-17 mouth. ity of Vitamin D3, 17:50: [place] 125 mcg 04 Medical (5,000 Branch unit) tablet ALPRAZolam 2021-07 Yes .25mg Take 0.25 U nivers (XANAX) 0-17 mg by ity of 0.25 mg 17:50: mouth once [place] tablet 04 now. Medical Branch Levothyroxi 2021-07 Yes Take by Uni vers ne 112 mcg 0-17 mouth. ity of capsule 17:50: Medical Branch omeprazole 2021-07 Yes 40mg Take 40 mg U nivers 20 mg 0-17 by mouth ity of capsule 17:50: daily. Medical Branch mesalamine 2021-07 Yes 1200mg Take 1,200 [facility] 1.2 gram EC 0-17 mg by ity of tablet 17:50: mouth 4 (four) Medical times Branch daily. hydrALAZINE 2021-07 Yes 50mg Take 50 mg [facility] 50 mg 0-17 by mouth 2 ity of tablet 17:50: (two) [place] [address] times Medical daily. Branch budesonide 2021-07 Yes 9mg Take 9 mg [place] 3 mg 24 hr 0-17 by mouth ity o f capsule 17:50: every morning. Medical Branch carvediloL 2021-07 Yes 25mg Take 25 mg U nivers 25 mg 0-17 by mouth 2 ity of tablet 17:50: (two) [place] [address] times Medical daily with Branch meals. aspirin 81 2021-07 Yes 81mg Take 81 mg U nivers mg chewable 0-17 by mouth ity of tablet 17:50: daily. Medical Branch Cholecalcif 2021-07 Yes Take by Uni vers naresh, 0-17 mouth. ity of Vitamin D3, 17:50: [place] 125 mcg 04 Medical (5,000 Branch unit) tablet ALPRAZolam 2021-07 Yes .25mg Take 0.25 U nivers (XANAX) 0-17 mg by ity of 0.25 mg 17:50: mouth once [place] tablet 04 now. Medical Branch Levothyroxi 2021-07 Yes Take by Uni vers ne 112 mcg 0-17 mouth. ity of capsule 17:50: Medical Branch omeprazole 2021-07 Yes 40mg Take 40 mg U nivers 20 mg 0-17 by mouth ity of capsule 17:50: daily. [address] Branch mesalamine 2021-07 Yes 1200mg Take 1,200 [facility] 1.2 gram EC 0-17 mg by ity of tablet 17:50: mouth 4 [place] [address] (four) [facility] daily. hydrALAZINE 2021-07 Yes 50mg Take 50 mg [facility] 50 mg 0-17 by mouth 2 ity of tablet 17:50: (two) [address] daily[address] Branch budesonide 2021-07 Yes 9mg Take 9 mg [place] 3 mg 24 hr 0-17 by mouth ity o f capsule 17:50: every [place] [address] morning. Medical Branch carvediloL 2021-07 Yes 25mg Take 25 mg U nivers 25 mg 0-17 by mouth 2 ity of tablet 17:50: (two) [address] daily with Branch meals. aspirin 81 2021-07 Yes 81mg Take 81 mg U nivers mg chewable 0-17 by mouth ity of tablet 17:50: daily. [address] Branch Cholecalcif 2021-07 Yes Take by Uni vers naresh, 0-17 mouth. ity of Vitamin D3, 17:50: [place] [address] (5,000 Branch unit) tablet Levothyroxi 2021-07 Yes Take by Uni vers ne 112 mcg 0-17 mouth. ity of capsule 17:50: [address] Branch omeprazole 2021-07 Yes 40mg Take 40 mg U nivers 20 mg 0-17 by mouth ity of capsule 17:50: daily. [address] Branch mesalamine 2021-07 Yes 1200mg Take 1,200 [facility] 1.2 gram EC 0-17 mg by ity of tablet 17:50: mouth 4 [place] [address] (four) [facility] daily. hydrALAZINE 2021-07 Yes 50mg Take 50 mg [facility] 50 mg 0-17 by mouth 2 ity of tablet 17:50: (two) [address] daily. Branch budesonide 2021-07 Yes 9mg Take 9 mg [place] 3 mg 24 hr 0-17 by mouth ity o f capsule 17:50: every [place] [address] morning. Medical Branch carvediloL 2021-07 Yes 25mg Take 25 mg U nivers 25 mg 0-17 by mouth 2 ity of tablet 17:50: (two) [place] [address] times Medical daily with Branch meals. aspirin 81 2021-07 Yes 81mg Take 81 mg U nivers mg chewable 0-17 by mouth ity of tablet 17:50: daily. [address] Cholecalcif 2021-07 Yes Take by Uni vers naresh, 0-17 mouth. ity of Vitamin D3, 17:50: [place] 125 mcg Medical (5,000 Branch unit) tablet Levothyroxi 2021-07 Yes Take by Uni vers ne 112 mcg 0-17 mouth. ity of capsule 17:50: [address] omeprazole 2021-07 Yes 40mg Take 40 mg U nivers 20 mg 0-17 by mouth ity of capsule 17:50: daily. [address] mesalamine 2021-07 Yes 1200mg Take 1,200 [facility] 1.2 gram EC 0-17 mg by ity of tablet 17:50: mouth 4 [place] [address] (four) Medical times [place] daily. hydrALAZINE 2021-07 Yes 50mg Take 50 mg [facility] 50 mg 0-17 by mouth 2 ity of tablet 17:50: (two) [place] [address] times [facility] daily. Branch budesonide 2021-07 Yes 9mg Take 9 mg [place] 3 mg 24 hr 0-17 by mouth ity o f capsule 17:50: every [place] [address] morning. [facility] Branch carvediloL 2021-07 Yes 25mg Take 25 mg U nivers 25 mg 0-17 by mouth 2 ity of tablet 17:50: (two) [place] [address] times Medical daily with Branch meals. aspirin 81 2021-07 Yes 81mg Take 81 mg U nivers mg chewable 0-17 by mouth ity of tablet 17:50: daily. [address] Cholecalcif 2021-07 Yes Take by Uni vers naresh, 0-17 mouth. ity of Vitamin D3, 17:50: [place] 125 [facility] Medical (5,000 Branch unit) tablet Loperamide 2021-07 Yes 2mg 2 mg, Univer s (IMODIUM 0-17 Oral, ity of A-D) 1 16:36: Q4HPRN, [place] mg/7.5 mL 25 Starting Medica l solution 2 on Mon Branch mg 04/18/22 at 1136, Until Discontinu ed, Routine, Diarrhea amLODIPine 2021-07- No 10mg Take 10 mg Univers (NORVASC) 0-17 10-17 by mouth ity o f 10 mg 15:05: 00:00 daily. [place] tablet 06 :00 Medical Branch amLODIPine 2021-07- No 10mg Take 10 mg Univers (NORVASC) 0-17 10-17 by mouth ity o f 10 mg 15:05: 00:00 daily. [place] tablet 06 :00 Medical Branch acetaminoph 2021-07- No [id number] 500mg Take 1 [facility] en 500 mg 0-19 05- tablet by ity of tablet 00:00: 04:59 mouth in [place] 00 :00 the Medical morning Branch and 1 tablet in the evening. Do all this for 14 days. gabapentin 2021-07- No [id number] 300mg Take 1 [facility] 300 mg 05-03 capsule by ity of capsule 00:00: 04:59 mouth at [place] 00 :00 bedtime Medical for 14 Branch days. ibuprofen 2021-07- No [id number] 400mg Take 1 [facility] 400 mg 05-03 tablet by ity of tablet 00:00: 04:59 mouth in [place] 00 :00 the Medical morning Branch and 1 tablet at noon and 1 tablet in the evening. Take with meals. Do all this for 14 days. methocarbam 2021-07- No [id number] 500mg Take 1 [facility] oL 500 mg 05-03 tablet by ity of tablet 00:00: 04:59 mouth 4 [place] 00 :00 (four) Medical times Branch daily as needed for Pain (scale 4-6) for up to 14 days. Loperamide 2021-07- No [id number] 2mg Take 15 mL Univers 1 mg/7.5 mL 05-03 by mouth ity of solution 00:00: 04:59 every 4 [place] 00 :00 (four) Medical hours as Branch needed for Constipati on for up to 14 days. acetaminoph 2021-07- No [id number] 500mg Take 1 [facility] en 500 mg 005-03 tablet by ity of tablet 00:00: 04:59 mouth in [place] 00 :00 the Medical morning Branch and 1 tablet in the evening. Do all this for 14 days. gabapentin 2021-07- No [id number] 300mg Take 1 [facility] 300 mg 0-17 - capsule by ity of capsule 00:00: 04:59 mouth at [place] 00 :00 bedtime Medical for 14 Branch days. ibuprofen 2021-07- No [id number] 400mg Take 1 [facility] 400 mg 0-17 - tablet by ity of tablet 00:00: 04:59 mouth in [place] 00 :00 the Medical morning Branch and 1 tablet at noon and 1 tablet in the evening. Take with meals. Do all this for 14 days. methocarbam 2021-07- No [id number] 500mg Take 1 [facility] oL 500 mg 0-17 - tablet by ity of tablet 00:00: 04:59 mouth 4 [place] 00 :00 (four) Medical times Branch daily as needed for Pain (scale 4-6) for up to 14 days. Loperamide 2021-07- No [id number] 2mg Take 15 mL Univers 1 mg/7.5 mL 0-19 05- by mouth ity of solution 00:00: 04:59 every 4 [place] 00 :00 (four) Medical hours as Branch needed for Constipati on for up to 14 days. acetaminoph 2021-07- No [id number] 500mg Take 1 [facility] en 500 mg 0-17 - tablet by ity of tablet 00:00: 04:59 mouth in [place] 00 :00 the Medical morning Branch and 1 tablet in the evening. Do all this for 14 days. gabapentin 2021-07- No [id number] 300mg Take 1 [facility] 300 mg 0-17 - capsule by ity of capsule 00:00: 04:59 mouth at [place] 00 :00 [facility] for 14 Branch days. ibuprofen 2021-07- No [id number] 400mg Take 1 [facility] 400 mg 0-17 - tablet by ity of tablet 00:00: 04:59 mouth in [place] 00 :00 the Medical morning Branch and 1 tablet at noon and 1 tablet in the evening. Take with meals. Do all this for 14 days. methocarbam 2021-07- No [id number] 500mg Take 1 [facility] oL 500 mg 0-17 - tablet by ity of tablet 00:00: 04:59 mouth 4 [place] 00 :00 (four) Medical times Branch daily as needed for Pain (scale 4-6) for up to 14 days. Loperamide 2021-07- No [id number] 2mg Take 15 mL Univers 1 mg/7.5 mL 0-17 - by mouth ity of solution 00:00: 04:59 every 4 [place] 00 :00 (four) Medical hours as Branch needed for Constipati on for up to 14 days. acetaminoph 2021-07- No [id number] 500mg Take 1 [facility] en 500 mg 0-17 - tablet by ity of tablet 00:00: 04:59 mouth in [place] 00 :00 the Medical morning Branch and 1 tablet in the evening. Do all this for 14 days. gabapentin 2021-07- No [id number] 300mg Take 1 [facility] 300 mg 005-03 capsule by ity of capsule 00:00: 04:59 mouth at [place] 00 :00 bedtime Medical for 14 Branch days. ibuprofen 2021-07- No [id number] 400mg Take 1 [facility] 400 mg 0-05-03 tablet by ity of tablet 00:00: 04:59 mouth in [place] 00 :00 the Medical morning Branch and 1 tablet at noon and 1 tablet in the evening. Take with meals. Do all this for 14 days. methocarbam 2021-07- No [id number] 500mg Take 1 [facility] oL 500 mg 0-19 05- tablet by ity of tablet 00:00: 04:59 mouth 4 [place] 00 :00 (four) Medical times Branch daily as needed for Pain (scale 4-6) for up to 14 days. Loperamide 2021-07- No [id number] 2mg Take 15 mL Univers 1 mg/7.5 mL 0- by mouth ity of solution 00:00: 04:59 every 4 [place] 00 :00 (four) Medical hours as Branch needed for Constipati on for up to 14 days. acetaminoph 2021-07- No [id number] 500mg Take 1 [facility] en 500 mg 0-19 05- tablet by ity of tablet 00:00: 04:59 mouth in [place] 00 :00 the Medical morning Branch and 1 tablet in the evening. Do all this for 14 days. gabapentin 2021-07- No [id number] 300mg Take 1 [facility] 300 mg 0-17 - capsule by ity of capsule 00:00: 04:59 mouth at [place] 00 :00 bedtime Medical for 14 Branch days. ibuprofen 2021-07- No [id number] 400mg Take 1 [facility] 400 mg 0-17 - tablet by ity of tablet 00:00: 04:59 mouth in [place] 00 :00 the Medical morning Branch and 1 tablet at noon and 1 tablet in the evening. Take with meals. Do all this for 14 days. methocarbam 2021-07- No [id number] 500mg Take 1 [facility] oL 500 mg 0-17 - tablet by ity of tablet 00:00: 04:59 mouth 4 [place] 00 :00 (four) Medical times Branch daily as needed for Pain (scale 4-6) for up to 14 days. Loperamide 2021-07- No [id number] 2mg Take 15 mL Univers 1 mg/7.5 mL 0-19 05- by mouth ity of solution 00:00: 04:59 every 4 [place] 00 :00 (four) Medical hours as Branch needed for Constipati on for up to 14 days. acetaminoph 2021-07- No [id number] 500mg Take 1 [facility] en 500 mg 0-17 - tablet by ity of tablet 00:00: 04:59 mouth in [place] 00 :00 the Medical morning Branch and 1 tablet in the evening. Do all this for 14 days. gabapentin 2021-07- No [id number] 300mg Take 1 [facility] 300 mg 0-17 - capsule by ity of capsule 00:00: 04:59 mouth at [place] 00 :00 [facility] for 14 Branch days. ibuprofen 2021-07- No [id number] 400mg Take 1 [facility] 400 mg 0-17 - tablet by ity of tablet 00:00: 04:59 mouth in [place] 00 :00 the Medical morning Branch and 1 tablet at noon and 1 tablet in the evening. Take with meals. Do all this for 14 days. methocarbam 2021-07- No [id number] 500mg Take 1 [facility] oL 500 mg 0-17 - tablet by ity of tablet 00:00: 04:59 mouth 4 [place] 00 :00 (four) Medical times Branch daily as needed for Pain (scale 4-6) for up to 14 days. Loperamide 2021-07- No [id number] 2mg Take 15 mL [facility] 1 mg/7.5 mL 0-17 - by mouth ity of solution 00:00: 04:59 every 4 [place] 00 :00 (four) Medical hours as Branch needed for Constipati on for up to 14 days. acetaminoph 2021-07- No [id number] 500mg Take 1 [facility] en 500 mg 0-17 - tablet by ity of tablet 00:00: 04:59 mouth in [place] 00 :00 the Medical morning Branch and 1 tablet in the evening. Do all this for 14 days. gabapentin 2021-07- No [id number] 300mg Take 1 [facility] 300 mg 0-05-03 capsule by ity of capsule 00:00: 04:59 mouth at [place] 00 :00 bedtime Medical for 14 Branch days. ibuprofen 2021-07- No [id number] 400mg Take 1 [facility] 400 mg 0-19 05- tablet by ity of tablet 00:00: 04:59 mouth in [place] 00 :00 the Medical morning Branch and 1 tablet at noon and 1 tablet in the evening. Take with meals. Do all this for 14 days. methocarbam 2021-07- No [id number] 500mg Take 1 [facility] oL 500 mg 0-19 05- tablet by ity of tablet 00:00: 04:59 mouth 4 [place] 00 :00 (four) Medical times Branch daily as needed for Pain (scale 4-6) for up to 14 days. Loperamide 2021-07- No [id number] 2mg Take 15 mL [facility] 1 mg/7.5 mL 0-19 05- by mouth ity of solution 00:00: 04:59 every 4 [place] 00 :00 (four) Medical hours as Branch needed for Constipati on for up to 14 days. acetaminoph 2021-07- No [id number] 500mg Take 1 [facility] en 500 mg 0-19 05- tablet by ity of tablet 00:00: 04:59 mouth in [place] 00 :00 the Medical morning Branch and 1 tablet in the evening. Do all this for 14 days. gabapentin 2021-07 No [id number] 300mg Take 1 [facility] 300 mg 0-17 - capsule by ity of capsule 00:00: 04:59 mouth at [place] 00 :00 bedtime Medical for 14 Branch days. ibuprofen 2021-07- No [id number] 400mg Take 1 [facility] 400 mg 0-17 - tablet by ity of tablet 00:00: 04:59 mouth in [place] 00 :00 the Medical morning Branch and 1 tablet at noon and 1 tablet in the evening. Take with meals. Do all this for 14 days. methocarbam 2021-07- No [id number] 500mg Take 1 [facility] oL 500 mg 0-17 - tablet by ity of tablet 00:00: 04:59 mouth 4 [place] 00 :00 (four) Medical times Branch daily as needed for Pain (scale 4-6) for up to 14 days. Loperamide 2021-07- No [id number] 2mg Take 15 mL [facility] 1 mg/7.5 mL 0-19 05- by mouth ity of solution 00:00: 04:59 every 4 [place] 00 :00 (four) Medical hours as Branch needed for Constipati on for up to 14 days. acetaminoph 2021-07- No [id number] 500mg Take 1 [facility] en 500 mg 0-17 - tablet by ity of tablet 00:00: 04:59 mouth in [place] 00 :00 the Medical morning Branch and 1 tablet in the evening. Do all this for 14 days. gabapentin 2021-07- No [id number] 300mg Take 1 [facility] 300 mg 0-17 - capsule by ity of capsule 00:00: 04:59 mouth at [place] 00 :00 [facility] Medical for 14 Branch days. ibuprofen 2021-07- No [id number] 400mg Take 1 [facility] 400 mg 0-17 11- tablet by ity of tablet 00:00: 04:59 mouth in [place] 00 :00 the Medical morning Branch and 1 tablet at noon and 1 tablet in the evening. Take with meals. Do all this for 14 days. methocarbam 2021-07- No [id number] 500mg Take 1 [facility] oL 500 mg 0-17 11- tablet by ity of tablet 00:00: 04:59 mouth 4 [place] 00 :00 (four) Medical times Branch daily as needed for Pain (scale 4-6) for up to 14 days. Loperamide 2021-07- No [id number] 2mg Take 15 mL [facility] 1 mg/7.5 mL 0-17 - by mouth ity of solution 00:00: 04:59 every 4 [place] 00 :00 (four) Medical hours as Branch needed for Constipati on for up to 14 days. acetaminoph 2021-07- No [id number] 500mg Take 1 [facility] en 500 mg 0-19 05- tablet by ity of tablet 00:00: 04:59 mouth in [place] 00 :00 the Medical morning Branch and 1 tablet in the evening. Do all this for 14 days. gabapentin 2021-07- No [id number] 300mg Take 1 [facility] 300 mg 005-03 capsule by ity of capsule 00:00: 04:59 mouth at [place] 00 :00 bedtime Medical for 14 Branch days. ibuprofen 2021-07- No [id number] 400mg Take 1 [facility] 400 mg 0-05-03 tablet by ity of tablet 00:00: 04:59 mouth in [place] 00 :00 the Medical morning Branch and 1 tablet at noon and 1 tablet in the evening. Take with meals. Do all this for 14 days. methocarbam 2021-07- No [id number] 500mg Take 1 [facility] oL 500 mg 0-19 05- tablet by ity of tablet 00:00: 04:59 mouth 4 [place] 00 :00 (four) Medical times Branch daily as needed for Pain (scale 4-6) for up to 14 days. Loperamide 2021-07- No [id number] 2mg Take 15 mL [facility] 1 mg/7.5 mL 005-03 by mouth ity of solution 00:00: 04:59 every 4 [place] 00 :00 (four) Medical hours as Branch needed for Constipati on for up to 14 days. acetaminoph 2021-07- No [id number] 500mg Take 1 [facility] en 500 mg 0-19 05- tablet by ity of tablet 00:00: 04:59 mouth in [place] 00 :00 the Medical morning Branch and 1 tablet in the evening. Do all this for 14 days. gabapentin 2021-07- No [id number] 300mg Take 1 [facility] 300 mg 0-17 - capsule by ity of capsule 00:00: 04:59 mouth at [place] 00 :00 bedtime Medical for 14 Branch days. ibuprofen 2021-07- No [id number] 400mg Take 1 [facility] 400 mg 0-17 - tablet by ity of tablet 00:00: 04:59 mouth in [place] 00 :00 the Medical morning Branch and 1 tablet at noon and 1 tablet in the evening. Take with meals. Do all this for 14 days. methocarbam 2021-07- No [id number] 500mg Take 1 [facility] oL 500 mg 0-17 - tablet by ity of tablet 00:00: 04:59 mouth 4 [place] 00 :00 (four) Medical times Branch daily as needed for Pain (scale 4-6) for up to 14 days. Loperamide 2021-07- No [id number] 2mg Take 15 mL [facility] 1 mg/7.5 mL -05-03 by mouth ity of solution 00:00: 04:59 every 4 [place] 00 :00 (four) Medical hours as Branch needed for Constipati on for up to 14 days. acetaminoph 2021-07- No [id number] 500mg Take 1 [facility] en 500 mg 0-17 - tablet by ity of tablet 00:00: 04:59 mouth in [place] 00 :00 the Medical morning Branch and 1 tablet in the evening. Do all this for 14 days. gabapentin 2021-07- No [id number] 300mg Take 1 [facility] 300 mg 0-17 - capsule by ity of capsule 00:00: 04:59 mouth at [place] 00 :00 [facility] Medical for 14 Branch days. ibuprofen 2021-07- No [id number] 400mg Take 1 [facility] 400 mg 0-17 11- tablet by ity of tablet 00:00: 04:59 mouth in [place] 00 :00 the Medical morning Branch and 1 tablet at noon and 1 tablet in the evening. Take with meals. Do all this for 14 days. methocarbam 2021-07- No [id number] 500mg Take 1 [facility] oL 500 mg 0-17 11- tablet by ity of tablet 00:00: 04:59 mouth 4 [place] 00 :00 (four) Medical times Branch daily as needed for Pain (scale 4-6) for up to 14 days. Loperamide 2021-07- No [id number] 2mg Take 15 mL [facility] 1 mg/7.5 mL 0-17 - by mouth ity of solution 00:00: 04:59 every 4 [place] 00 :00 (four) Medical hours as Branch needed for Constipati on for up to 14 days. acetaminoph 2021-07- No [id number] 500mg Take 1 [facility] en 500 mg 0-17 - tablet by ity of tablet 00:00: 04:59 mouth in [place] 00 :00 the Medical morning Branch and 1 tablet in the evening. Do all this for 14 days. gabapentin 2021-07- No [id number] 300mg Take 1 [facility] 300 mg 005-03 capsule by ity of capsule 00:00: 04:59 mouth at [place] 00 :00 bedtime Medical for 14 Branch days. ibuprofen 2021-07- No [id number] 400mg Take 1 [facility] 400 mg 0-19 05- tablet by ity of tablet 00:00: 04:59 mouth in [place] 00 :00 the Medical morning Branch and 1 tablet at noon and 1 tablet in the evening. Take with meals. Do all this for 14 days. methocarbam 2021-07- No [id number] 500mg Take 1 [facility] oL 500 mg 0-19 05- tablet by ity of tablet 00:00: 04:59 mouth 4 [place] 00 :00 (four) Medical times Branch daily as needed for Pain (scale 4-6) for up to 14 days. Loperamide 2021-07- No [id number] 2mg Take 15 mL [facility] 1 mg/7.5 mL 0-19 05- by mouth ity of solution 00:00: 04:59 every 4 [place] 00 :00 (four) Medical hours as Branch needed for Constipati on for up to 14 days. acetaminoph 2021-07- No [id number] 500mg Take 1 [facility] en 500 mg 0-19 05- tablet by ity of tablet 00:00: 04:59 mouth in [place] 00 :00 the Medical morning Branch and 1 tablet in the evening. Do all this for 14 days. gabapentin 2021-07- No [id number] 300mg Take 1 [facility] 300 mg 05-03 capsule by ity of capsule 00:00: 04:59 mouth at [place] 00 :00 bedtime Medical for 14 Branch days. ibuprofen 2021-07- No [id number] 400mg Take 1 [facility] 400 mg 05-03 tablet by ity of tablet 00:00: 04:59 mouth in [place] 00 :00 the Medical morning Branch and 1 tablet at noon and 1 tablet in the evening. Take with meals. Do all this for 14 days. methocarbam 2021-07- No [id number] 500mg Take 1 [facility] oL 500 mg 05-03 tablet by ity of tablet 00:00: 04:59 mouth 4 [place] 00 :00 (four) Medical times Branch daily as needed for Pain (scale 4-6) for up to 14 days. Loperamide 2021-07- No [id number] 2mg Take 15 mL [facility] 1 mg/7.5 mL 05-03 by mouth ity of solution 00:00: 04:59 every 4 [place] 00 :00 (four) Medical hours as Branch needed for Constipati on for up to 14 days. HYDROcodone 2021-07 No [id number] 1{tbl} Take 1 U nivers -acetaminop 0-17 10-25 tablet by it y of hen 5-325 00:00: 04:59 mouth [place] mg tablet 00 :00 every 6 Medical (six) Branch hours as needed for Pain (scale 7-10) or Pain (scale 4-6) for up to 7 days. Indication s: acute pain HYDROcodone 2021-07 No 4647 1{tbl} Take 1 U nivers -acetaminop 0-17 10-25 tablet by it y of hen 5-325 00:00: 04:59 mouth [place] mg tablet 00 :00 every 6 Medical (six) Branch hours as needed for Pain (scale 7-10) or Pain (scale 4-6) for up to 7 days. Indication s: acute pain HYDROcodone 2021-07 No 4647 1{tbl} Take 1 U nivers -acetaminop 0-17 10-25 tablet by it y of hen 5-325 00:00: 04:59 mouth [place] mg tablet 00 :00 every 6 Medical (six) Branch hours as needed for Pain (scale 7-10) or Pain (scale 4-6) for up to 7 days. Indication s: acute pain HYDROcodone 2021-07 No 4647 1{tbl} Take 1 U nivers -acetaminop 0-17 10-25 tablet by it y of hen 5-325 00:00: 04:59 mouth [place] mg tablet 00 :00 every 6 Medical (six) Branch hours as needed for Pain (scale 7-10) or Pain (scale 4-6) for up to 7 days. Indication s: acute pain HYDROcodone 2021-07 No 4647 1{tbl} Take 1 U nivers -acetaminop 0-17 10-25 tablet by it y of hen 5-325 00:00: 04:59 mouth [place] mg tablet 00 :00 every 6 Medical (six) Branch hours as needed for Pain (scale 7-10) or Pain (scale 4-6) for up to 7 days. Indication s: acute pain HYDROcodone 2021-07 No 4647 1{tbl} Take 1 U nivers -acetaminop 0-17 10-25 tablet by it y of hen 5-325 00:00: 04:59 mouth [place] mg tablet 00 :00 every 6 Medical (six) Branch hours as needed for Pain (scale 7-10) or Pain (scale 4-6) for up to 7 days. Indication s: acute pain magnesium 2021-07- No 4g 4 g, IV Univ ers sulfate in 0-15 10-16 Piggyback, it y of water 4 23:15: 01:22 at 25 [place] gram/50 mL 00 :00 mL/hr Medical (8 %) IV Administer Branc h Piggyback 4 over 120 g Minutes, ONCE, 1 dose, On 04/16/22 at 1815, Routine HYDROcodone 2021-07 Yes 1{tbl} 1 tablet, Univers -acetaminop 0-15 Oral, ity of hen (NORCO 20:45: Q6HPRN, [place] 5) 5-325 mg 00 Starting Medi erika tablet 1 on Sat Branch tablet 04/16/22 at 1545, Until Discontinu ed, Routine, Pain (scale 7-10), Pain (scale 4-6) gabapentin 2021-07 Yes 300mg 300 mg, Uni vers (NEURONTIN) 0-15 Oral, QHS, it y of capsule 300 02:00: First dose [place] mg 00 (after Medical last Branch modificati on) on Mon04/15/22 at 2100, Until Discontinu ed, Routine acetaminoph 2021-07 Yes 500mg 500 mg, Un gretchen en 0-15 Oral, BID, ity of (TYLENOL) 01:00: First dose [place] tablet 500 00 (after Medical mg last Branch modificati on) on Mon04/15/22 at 2000, Until Discontinu ed, Routine KCL 2021-07- No 20meq 20 mEq, Univers (KLOR-CON 0-14 10-14 Oral, ity of M20) tablet 17:45: 16:52 ONCE, 1 [place] 20 mEq 00 :00 dose, On Medical Mon04/15/22 at 1245, Routine pantoprazol 2021-07 Yes 40mg 40 mg, Univ ers e 0-14 Oral, ity of (PROTONIX) 14:00: DAILY, [place] EC tablet 00 First dose Medi erika 40 mg on Mon04/15/22 at 0900, Until Discontinu ed, Routine methocarbam 2021-07 Yes 500mg 500 mg, Un [place]ret[place] oL 0-14 Oral, ity of (ROBAXIN) 13:15: QIDPRN, [place] tablet 500 00 Starting Medic al mg on Mon04/15/22 at 0815, Until Discontinu ed, Routine, Muscle Spasms polyethylen 2021-07 Yes 17g 17 g, Unive rs e glycol 0-13 Oral, ity of 3350 powder 14:00: DAILY, [place] 17 g 00 First dose Medical on Mon04/14/22 at 0900, Until Discontinu ed, Routine tamsulosin 2021-07 Yes .4mg 0.4 mg, Univ ers (FLOMAX) 0-13 Oral, ity of capsule 0.4 14:00: DAILY, [place] mg 00 First dose Medical on Mon04/14/22 at 0900, Until Discontinu ed, Routine KCL 2021-07- No 20meq 20 mEq, Univers (KLOR-CON 0-13 10-13 Oral, ity of M20) tablet 13:15: 13:38 ONCE, 1 [place] 20 mEq 00 :00 dose, On Medical [place] Branch 04/14/22 at 0815, Routine acetaminoph 2021-07 325mg 325 mg, U nivers en 0-12 10-14 Oral, Q6H, ity of (TYLENOL) 23:00: 13:09 First dose [place] tablet 325 00 :04 (after Medical mg last Branch modificati on) on [facility] 04/13/22 at 1800, Until Discontinu ed, Routine cosyntropin 2021-07 No 250ug 250 mcg, Univers (CORTROSYN) 0-12 10-13 Slow IV ity of injection 22:45: 09:55 Push, [place] 250 mcg 00 :00 ONCE, 1 Medical dose, On Branch 04/13/22 at 1745, Routine HYDROcodone 2021-07 No 1{tbl} 1 tablet, Univers -acetaminop 0-12 10-15 Oral, ity of hen (NORCO 21:53: 20:41 Q4HPRN, [place] 5) 5-325 mg 03 :53 Starting Medi erika tablet 1 on [facility] Branch tablet 04/13/22 at 1653, Until 04/16/22 at 1541, Routine, Pain (scale 7-10), Pain (scale 4-6) amLODIPine 2021-07 Yes 10mg 10 mg, Unive rs (NORVASC) 0-12 Oral, ity of tablet 10 14:00: DAILY, [place] mg 00 First dose Medical on [facility] Branch 04/13/22 at 0900, Until Discontinu ed, Routine ibuprofen 2021-07 Yes 400mg 400 mg, Univ ers (IBU) 0-12 Oral, TID ity of tablet 400 13:00: MEALS, [place] mg 00 First dose Medical on [facility] Branch 04/13/22 at 0800, Until Discontinu ed, Routine levothyroxi 2021-07 Yes 56ug 56 mcg, Uni vers ne 0-12 Intravenou ity of (SYNTHROID) 13:00: s, Q24H, [place] injection 00 First dose Medi erika 56 mcg (after Branch last modificati on) on [facility] 04/13/22 at 0800, Until Discontinu ed, Routine methocarbam 2021-07 No 500mg 500 mg, U nivers oL 0-06 11-14 Oral, QID, ity of (ROBAXIN) 13:00: 13:09 First dose [place] tablet 500 00 :04 on [facility] Medical mg 04/13/22 Branch at 0800, Until Discontinu ed, Routine gabapentin 2021-07 No 300mg 300 mg, Un gretchen (NEURONTIN) 0-14 Oral, TID, i ty of capsule 300 13:00: 13:09 First dose [place] mg 00 :04 on [facility] 04/13/22 Branch at 0800, Until Discontinu ed, Routine KCL 2021-07 No 20meq 20 mEq, Univers (KLOR-CON 004-13 Oral, ity of M20) tablet 12:30: 11:27 ONCE, 1 [place] 20 mEq 00 :00 dose, On [facility] 04/13/22 at 0730, Routine magnesium 2021-07 No 2g 2 g, IV Univ ers sulfate in 04-13 Piggyback, it y of water 2 12:00: 12:31 Administer [place] gram/50 mL 00 :00 over 60 Medica l (4 %) Minutes, Branch infusion 2 ONCE, 1 g dose, On [facility] 04/13/22 at 0700, Routine acetaminoph 2021-07 No 650mg 650 mg, U nivers en 004-13 Oral, Q6H, ity of (TYLENOL) 12:00: 21:53 First dose [place] tablet 650 00 :34 on [facility] Medical mg 04/13/22 Branch at 0700, Until Discontinu ed, Routine bisacodyL 2021-07 No 10mg 10 mg, Unive rs (DULCOLAX) 004-13 Rectal, ity o f suppository 12:00: 13:16 ONCE, 1 [place] 10 mg 00 :00 dose, On [facility] 04/13/22 at 0700, Routine amLODIPine 2021-07 No 5mg 5 mg, Unive rs (NORVASC) 004-12 Oral, ity of tablet 5 mg 23:15: 23:13 ONCE, 1 [place] 00 :00 dose, On [facility] 04/12/22 at 1815, Routine FENTanyl PF 2021-07 No 25ug 25 mcg, Un gretchen (SUBLIMAZE 004-15 Slow IV ity o f (PF)) 16:48: 13:09 Push, [place] injection 26 :04 Q3HPRN, Medical 25 mcg Starting Branch on Mon04/12/22 at 1148, Until Mon04/15/22 at 0809, Routine, breakthrou gh pain oxyCODONE 2021-07 No 5mg 5 mg, Univer s immediate 12 Oral, ity of release 16:48: 21:53 Q4HPRN, [place] tablet 5 mg 21 :34 Starting Medi erika on Mon04/12/22 at 1148, Until Mon04/13/22 at 1653, Routine, Pain (scale 7-10), Pain (scale 4-6)
Fa culty member approving Restricted medication : ERASMO TOVAR furosemide 2021-07 No 40mg 40 mg, Univ ers (LASIX) 004-12 Slow IV ity of injection 15:45: 17:14 Push, [place] 40 mg 00 :00 ONCE, 1 Medical dose, On Branch Mon04/12/22 at 1045, Routine hydrALAZINE 2021-07 Yes 50mg 50 mg, Univ ers (APRESOLINE 0-11 Oral, TID, it y of ) tablet 50 13:00: First dose [place] mg 00 on [facility] 04/12/22 Branch at 0800, Until Discontinu ed, Routine carvediloL 2021-07 Yes 25mg 25 mg, Unive rs (COREG) 0-11 Oral, BID ity of tablet 25 13:00: MEALS, [place] mg 00 First dose Medical on [facility] 04/12/22 at 0800, Until Discontinu ed, Routine magnesium 2021-07 No 4g 4 g, IV Univ ers sulfate in 011 Piggyback, it y of water 4 11:45: 14:17 at 25 [place] gram/50 mL 00 :00 mL/hr Medical (8 %) IV Administer Branc h Piggyback 4 over 120 g Minutes, ONCE, 1 dose, On Mon04/12/22 at 0645, Routine potassium 2021-07 No 15mmol 15 mmol, U nivers phosphate 0- 10-10 IV ity of 15 mmol in 12:30: 17:00 Piggyback, [place] NaCl 0.9% 00 :00 ONCE, 1 Medical (NS) 150 mL dose, On Bran ch piggyback Mon04/11/22 at 0730, 150 mL pantoprazol 2021-07 No 40mg 40 mg, Uni vers e 0- 10- Slow IV ity of (PROTONIX) 12:00: 11:59 Push, [place] injection 00 :00 Q24H, 3 Medical 40 mg doses, Branch First dose (after last reorder) on Mon04/11/22 at 0700, Last dose on Mon04/13/22 at 0700 pantoprazol 2021-07 No 40mg 40 mg, Uni vers e 0 10- Slow IV ity of (PROTONIX) 12:00: 11:27 Push, [place] injection 00 :00 Q24H, 3 Medical 40 mg doses, Branch First dose (after last reorder) on Mon04/11/22 at 0700, Last dose on Mon04/13/22 at 0700 magnesium 2021-07 No 2g 2 g, IV Univ ers sulfate in 0- Piggyback, it y of water 2 11:45: 12:13 Administer [place] gram/50 mL 00 :00 over 60 Medica l (4 %) Minutes, Branch infusion 2 ONCE, 1 g dose, On Mon04/11/22 at 0645, Routine HYDROmorpho 2021-07 No Patient Un gretchen ne 0-03 12-11 [place] ity of (DILAUDID) 22:00: 21:59 Dose: 0.1 [place] 10 mg/50 mL 00 :00 mg
Lock Me dical 0.9% NaCl out Branch OFFICE SUPPORT Interval: 10 Minutes
Basal Rate: 0 mg/hr<BR&g t;Four Hour Dose Limit: 2.4 mg
IV Infusion, 50 mL, CONTINUOUS , Starting on 04/10/22 at 1700, Until Tu04/12/22 at 1659 HYDROmorpho 2021-07- No Patient Un gretchen ne 0-09 10-11 [place] ity of (DILAUDID) 22:00: 16:48 Dose: 0.1 [place] 10 mg/50 mL 00 :18 mg
Lock Me dical 0.9% NaCl out Branch OFFICE SUPPORT Interval: 10 Minutes
Basal Rate: 0 mg/hr<BR&g t;Four Hour Dose Limit: 2.4 mg
IV Infusion, 50 mL, CONTINUOUS , Starting on [place] 04/10/22 at 1700, Until Mon04/12/22 at 1148 methocarbam 2021-07 Yes 500mg 500 mg, Un gret[place] oL 009 Intravenou ity of (ROBAXIN) 21:00: s, QID, [place] injection 00 First dose Medi erika 500 mg on [facility] 04/10/22 at 1600, Until Discontinu ed, Routine methocarbam 2021-07 No 500mg 500 mg, U nivers oL 012 Intravenou ity of (ROBAXIN) 21:00: 12:28 s, QID, [place] injection 00 :03 First dose Medi erika 500 mg on [facility] 04/10/22 at 1600, Until Discontinu ed, Routine acetaminoph 2021-07- No 1000mg 1,000 mg, Univers en ADULT 004-11 IV ity of (OFIRMEV) 14:30: 08:32 Infusion, [place] injection 00 :00 at 400 Medical 1,000 mg mL/hr Branch Administer over 15 Minutes, Q8H ABX, 3 doses, First dose (after last reorder) on [place] 04/10/22 at 0930, Last dose on Mon04/11/22 at 0130, Routine
Indicatio n: Non-periop erative Patient
Approved by: Per Policy (NPO Status) magnesium 2021-07 No 2g 2 g, IV Univ ers sulfate in 004-10 Piggyback, it y of water 2 12:15: 19:45 Administer [place] gram/50 mL 00 :00 over 60 Medica l (4 %) Minutes, Branch infusion 2 ONCE, 1 g dose, On [place] 04/10/22 at 0715, Routine D5W 0.9% 2021-07 Yes IV Univers NaCl + KCL 0-08 Infusion, ity of 20 mEq RTU 23:15: CONTINUOUS [place] 20 mEq/L 00 , Starting Medic al 1,000 mL IV on Sat Branch Solution 04/09/22 at 1815, Until Discontinu ed, 1,000 mL, at 100 mL/hr D5W 0.9% 2021-07- No IV Univers NaCl + KCL 0-08 04-12 Infusion, ity of 20 mEq RTU 23:15: 15:36 CONTINUOUS [place] 20 mEq/L 00 :28 , Starting Medic al 1,000 mL IV on Sat Branch Solution 04/09/22 at 1815, Until 04/12/22 at 1036, 1,000 mL, at 100 mL/hr FENTanyl 2021-07- No Patient Unive rs 1000 0-08 10-09 [place] ity of mcg/100 mL 23:15: 20:56 Dose: 10 [place] 0.9% NaCl 00 :34 mcg
Loc Medi erika OFFICE SUPPORT kout Branch Interval: 10 Minutes
Basal Rate: 0 mcg/hr<BR& gt;Four Hour Dose Limit: 240 mcg
IV Infusion, 100 mL, CONTINUOUS , Starting on 04/09/22 at 1815, Until 04/10/22 at 1556 naloxone 2021-07 Yes .1mg 0.1 mg, Univer s (NARCAN) 0-08 Slow IV ity of injection 22:06: Push, [place] 0.1 mg 54 SEE-INSTRU Medical CTIONS, Branch Starting on 04/09/22 at 1706, Until Discontinu ed, Routine naloxone 2021-07 Yes .1mg 0.1 mg, Univer s (NARCAN) 0-08 Slow IV ity of injection 22:06: Push, [place] 0.1 mg 54 SEE-INSTRU Medical CTIONS, Branch Starting on 04/09/22 at 1706, Until Discontinu ed, Routine bupivacaine 2021-07- No Epidural, Univers 0.0625% 0-08 10-10 at 6 ity of epidural 15:30: 03:47 mL/hr, [place] infusion 00 :20 CONTINUOUS Medic al 250 mL , Starting Branch on 04/09/22 at 1030, Until 04/10/22 at 2247, 250 mL metoprolol 2021-07 Yes 2.5mg 2.5 mg, Uni vers (LOPRESSOR) 0-08 Intravenou it y of injection 14:00: s, Q8H, [place] 2.5 mg 00 First dose Medical (after Branch last modificati on) on 04/09/22 at 0900, Until Discontinu ed, Routine aspirin 2021-07 Yes 81mg 81 mg, Univers chewable 0-08 Oral, ity of tablet 81 14:00: DAILY, [place] mg 00 First dose Medical on Sat Branch 04/09/22 at 0900, Until Discontinu ed, Routine aspirin 2021-07 Yes 81mg 81 mg, Univers chewable 0-08 Oral, ity of tablet 81 14:00: DAILY, [place] mg 00 First dose Medical on Sat Branch 04/09/22 at 0900, Until Discontinu ed, Routine metoprolol 2021-07 No 2.5mg 2.5 mg, Un gretchen (LOPRESSOR) 011 Intravenou i ty of injection 14:00: 12:37 s, Q8H, [place] 2.5 mg 00 :56 First dose Medical (after Branch last modificati on) on 04/09/22 at 0900, Until Discontinu ed, Routine acetaminoph 2021-07 No 1000mg 1,000 mg, Univers en ADULT 004-10 IV ity of (OFIRMEV) 09:45: 01:14 Infusion, [place] injection 00 :00 at 400 Medical 1,000 mg mL/hr Branch Administer over 15 Minutes, Q8H ABX, 3 doses, First dose on 04/09/22 at 0445, Last dose on 04/09/22 at 2044, Routine
Indicatio n: Non-periop erative Patient
Approved by: Per Policy (NPO Status) pantoprazol 2021-07 No 40mg 40 mg, Uni vers e 0-08 Slow IV ity of (PROTONIX) 01:45: 01:01 Push, [place] injection 00 :00 ONCE, 1 Medical 40 mg dose, On Branch 04/08/22 at 2045 potassium 2021-07 No 20meq 20 mEq, IV Univers chloride in 0-08 Piggyback, i ty of water (KCL) 23:00: 06:59 Q2H, 4 [place] 20 mEq/100 00 :00 doses, Medical mL RTU IVPB First dose Br anch 20 mEq on Mon04/08/22 at 1800, Last dose on Mon04/09/22 at 0000, 100 mL enoxaparin 2021-07 Yes 40mg 40 mg, Unive rs (LOVENOX) 0-07 Subcutaneo ity of injection 22:00: us, DAILY, [place] 40 mg 00 First dose Medical on Mon Branch 04/08/22 at 1700, Until Discontinu ed, Routine enoxaparin 2021-07 Yes 40mg 40 mg, Unive rs (LOVENOX) 0-07 Subcutaneo ity of injection 22:00: us, DAILY, [place] 40 mg 00 First dose Medical on Mon Branch 04/08/22 at 1700, Until Discontinu ed, Routine levothyroxi 2021-07 Yes 56ug 56 mcg, Uni vers ne 0-07 Intravenou ity of (SYNTHROID) 19:15: s, Q24H, [place] injection 00 First dose Medi erika 56 mcg on Mon Branch 04/08/22 at 1415, Until Discontinu ed, Routine levothyroxi 2021-07- No 56ug 56 mcg, Un gret[place] ne 007 11 Intravenou ity of (SYNTHROID) 19:15: 22:12 s, Q24H, [place] injection 00 :47 First dose Medi erika 56 mcg on Mon Branch 04/08/22 at 1415, Until Discontinu ed, Routine ketorolac 2021-07- No 15mg 15 mg, Unive rs (TORADOL) 004-09 Slow IV ity of injection 19:00: 18:54 [place], Q8H, [place] 15 mg 00 :00 4 doses, Medical First dose Branch on Mon04/08/22 at 1400, Last dose on Mon04/09/22 at 1400, Routine bupivacaine 2021-07- No Caudal Uni vers (preserv 0-04-08 Block, ity of free) 18:49: 18:56 ONCE INTRA [place] (SENSORCAIN 00 :02 PROCEDURE, Me dical E MPF) 0.25 Starting Bran ch % (2.5 on Mon mg/mL) 04/08/22 at injection 1349, Until Mon04/08/22 at 1356, Routine, Intra-op HYDROmorpho 2021-07- No .2mg 0.2 mg, Un gretchen ne 0-07 10-07 Slow IV ity of (DILAUDID) 18:17: 22:16 Push, [place] injection 35 :48 Q5MIN PRN, Medi erika 0.2 mg 10 doses, Branch Starting on Mon04/08/22 at 1317, Until Mon04/08/22 at 1716, Routine, Pain (scale 7-10), PACU
Us e approved by (Faculty): PACU USE -ANESTHESI A SERVICE-HY DROMORPHON E INJECTIONS pantoprazol 2021-07- No 40mg 40 mg, Uni vers e 0-07 10-09 Slow IV ity of (PROTONIX) 17:45: 17:45 Push, [place] injection 00 :00 Q24H, 3 Medical 40 mg doses, Branch First dose on Mon04/08/22 at 1245, Last dose on Mon04/10/22 at 1245 D5W 0.45% 2021-07- No IV Univers NaCl 0-07 10-08 Infusion, ity of (1/2NS) 1 L 17:45: 22:11 at 100 Mayur as + KCL 20 00 :17 mL/hr, Medical mEq CONTINUOUS Branch , Starting on Mon04/08/22 at 1245, Until 04/09/22 at 1711, Routine hydralAZINE 2021-07 Yes 10mg 10 mg, Univ ers (APRESOLINE 0-07 Slow IV ity o f ) injection 17:33: Push, [place] 10 mg 56 Q4HPRN, Medical Starting Branch on Mon04/08/22 at 1233, Until Discontinu ed, Routine, DBP=>10 0; SBP=>180 hydralAZINE 2021-07 Yes 10mg 10 mg, Univ ers (APRESOLINE 0-07 Slow IV ity o f ) injection 17:33: Push, [place] 10 mg 56 Q4HPRN, Medical Starting Branch on Mon04/08/22 at 1233, Until Discontinu ed, Routine, DBP=>10 0; SBP=>180 FENTanyl PF 2021-07 Yes 25ug 25 mcg, Uni vers (SUBLIMAZE 0-07 Slow IV ity of (PF)) 17:31: Push, [place] injection 54 Q3HPRN, Medical 25 mcg Starting Branch on Mon04/08/22 at 1231, Until Discontinu ed, Routine, Pain (scale 7-10) FENTanyl PF 2021-07- No 25ug 25 mcg, Un gretchen (SUBLIMAZE 0-07 10-11 Slow IV ity o f (PF)) 17:31: 16:48 Push, [place] injection 54 :44 Q3HPRN, Medical 25 mcg Starting Branch on Mon04/08/22 at 1231, Until Tu04/12/22 at 1148, Routine, Pain (scale 7-10) ondansetron 2021-07 Yes 4mg 4 mg, Slow Univers (ZOFRAN 0-07 IV Push, ity of (PF)) 17:30: Q6HPRN, [place] injection 4 25 Starting Medi erika mg on Mon Branch 04/08/22 at 1230, Until Discontinu ed, Routine, Nausea and Vomiting (N/V) ondansetron 2021-07 Yes 4mg 4 mg, Slow Univers (ZOFRAN 0-07 IV Push, ity of (PF)) 17:30: Q6HPRN, [place] injection 4 25 Starting Medi erika mg on Mon Branch 04/08/22 at 1230, Until Discontinu ed, Routine, Nausea and Vomiting (N/V) ALPRAZolam 2021-07 Yes .25mg Take 0.25 U nivers (XANAX) 0-07 mg by ity of 0.25 mg 17:16: mouth [place] tablet 48 now. Medical Branch ALPRAZolam 2021-07 Yes .25mg Take 0.25 U nivers (XANAX) 0-07 mg by ity of 0.25 mg 17:16: [place] tablet 48 now. Medical Branch sugammadex 2021-07- No IV Push, Un gret[facility] (BRIDION) 0-07 10-07 ONCE INTRA ity of injection 16:49: 17:46 PROCEDURE, [place] 00 :41 Starting Medical on Mon Branch 04/08/22 at 1149, Until Discontinu ed, Routine, Intra-op ondansetron 2021-07- No Slow IV Un [place] (ZOFRAN 0-07 10-07 Push, ONCE ity o f (PF)) 16:41: 17:46 INTRA [place] injection 00 :41 PROCEDURE, Medi erika Starting Branch on Mon04/08/22 at 1141, Until Discontinu ed, Routine, Intra-op acetaminoph 2021-07- No IV Unive rs en ADULT 0-07 10-07 Infusion, ity o f (OFIRMEV) 16:40: 17:46 Administer [place] injection 00 :41 over 15 Medical Minutes, Branch ONCE INTRA PROCEDURE, Starting on Mon04/08/22 at 1140, Until Discontinu ed, Routine, Intra-op KCL 20 2021-07- No IV Univers mEq/50 mL 0-07 10-07 Infusion, ity of Piggyback 16:34: 17:46 ONCE INTRA [place] 00 :41 PROCEDURE, Medical Starting Branch on Mon04/08/22 at 1134, Until Discontinu ed, Intra-op NORepinephr 2021-07- No IV Unive rs ine 0-07 - Infusion, ity of (LEVOPHED) 14:53: 17:46 CONTINUOUS [place] 4 mg in 00 :41 PRN, Medical NaCl 0.9% Starting Branch (NS) 250 mL on Mon infusion 04/08/22 at 0953, Intra-op bupivacaine 2021-07- No Epidural, Univers 0.0625% 0 10-08 at 4 ity of epidural 13:34: 15:19 mL/hr, [place] infusion 00 :38 CONTINUOUS Medic al 250 mL , Starting Branch on Mon04/08/22 at 0845, Until 04/09/22 at 1019, 250 mL HYDROmorphO 2021-07- No Slow IV Un gretchen ne 0-07 10-07 Push, ONCE ity of (DILAUDID) 13:26: 17:46 INTRA [place] injection 00 :41 PROCEDURE, Medi erika Starting Branch on Mon04/08/22 at 0826, Until Discontinu ed, Routine, Intra-op glycopyrrol 2021-07- No Intravenou Univers ate 0-07 10-07 s, ONCE ity of (ROBINUL) 13:20: 17:46 INTRA [place] injection 00 :41 PROCEDURE, Medi erika Starting Branch on Mon04/08/22 at 0820, Until Discontinu ed, Routine, Intra-op ceFAZolin 2021-07- Slow IV Univ ers (ANCEF) 0-07 10-07 Push, ONCE ity o f injection 13:11: 17:46 INTRA [place] 00 :41 PROCEDURE, Medical Starting Branch on Mon04/08/22 at 0811, Until Discontinu ed, FRANCK, Intra-op lactated 2021-07- IV Univers ringers IV 0-07 10-07 Infusion, ity of infusion 12:40: 17:46 CONTINUOUS [place] 00 :[place] PRN, Medical Starting Branch on Mon04/08/22 at 0740, Until Discontinu ed, Routine, Intra-op Levothyroxi 2021-07 Yes Take by Uni vers ne 112 mcg 0-07 mouth. ity of capsule 12:34: [address] omeprazole 2021-07 Yes 40mg Take 40 mg U nivers 20 mg 0-07 by mouth ity of capsule 12:34: daily. [address] mesalamine 2021-07 Yes 1200mg Take 1,200 Univers 1.2 gram EC 0-07 mg by ity of tablet 12:34: mouth 4 [place] [address] (four) Medical times Branch daily. hydrALAZINE 2021-07 Yes 50mg Take 50 mg Univers 50 mg 0-07 by mouth 2 ity of tablet 12:34: (two) [address] daily. Branch budesonide 2021-07 Yes 9mg Take 9 mg Un [place] 3 mg 24 hr 0-07 by mouth ity o f capsule 12:34: every [place] [address] morning. Medical Branch carvediloL 2021-07 Yes 25mg Take 25 mg U nivers 25 mg 0-07 by mouth 2 ity of tablet 12:34: (two) [address] daily with Branch meals. aspirin 81 2021-07 Yes 81mg Take 81 mg U nivers mg chewable 0-07 by mouth ity of tablet 12:34: daily. [address] calcium/mag 2021-07 Yes Take by Uni vers nesium/zinc 0-07 mouth. ity of (CALCIUM-MA 12:34: [place] GNESUIUM-[address]) Branch 333-133-5 mg Tab Cholecalcif 2021-07 Yes Take by Uni vers naresh, 0-07 mouth. ity of Vitamin D3, 12:34: [place] 125 mcg 44 Medical (5,000 Branch unit) tablet cyanocobala 2021-[address] Unive rs min, 0-07 under the ity of vitamin 12:34: tongue. [facility] Medical (VITAMIN Branch B-12) 5,000 mcg/mL Drop Levothyroxi 2021-07 Yes Take by Uni vers ne 112 mcg 0-07 mouth. ity of capsule 12:34: [address] omeprazole 2021-07 Yes 40mg Take 40 mg U nivers 20 mg 0-07 by mouth ity of capsule 12:34: daily. [address] Branch mesalamine 2021-07 Yes 1200mg Take 1,200 Univers 1.2 gram EC 0-07 mg by ity of tablet 12:34: mouth 4 [place] [address] (four) Medical times Branch daily. hydrALAZINE 2021-07 Yes 50mg Take 50 mg Univers 50 mg 0-07 by mouth 2 ity of tablet 12:34: (two) [place] [address] times [facility] daily. Branch budesonide 2021-07 Yes 9mg Take 9 mg Un [place] 3 mg 24 hr 0-07 by mouth ity o f capsule 12:34: every [place] [address] morning. Medical Branch carvediloL 2021-07 Yes 25mg Take 25 mg U nivers 25 mg 0-07 by mouth 2 ity of tablet 12:34: (two) [address] daily with Branch meals. aspirin 81 2021-07 Yes 81mg Take 81 mg U nivers mg chewable 0-07 by mouth ity of tablet 12:34: daily. [address] calcium/mag 2021-07 Yes Take by Uni vers nesium/zinc 0-07 mouth. ity of (CALCIUM-MA 12:34: [place] GNESUIUM-ZI Medical NM) Branch 333-133-5 mg Tab Cholecalcif 2021-07 Yes Take by Uni vers naresh, 0-07 mouth. ity of Vitamin D3, 12:34: [place] 125 mcg Medical (5,000 Branch unit) tablet cyanocobala 2021-[address] Unive rs min, 0-07 under the ity of vitamin 12:34: tongue. [facility] Medical (VITAMIN Branch B-12) 5,000 mcg/mL Drop ePHEDrine 2022-1 2022- No Slow IV Univ ers 25 mg/5 mL 0-07 10-07 Push, ONCE it y of (5 mg/mL) 12:32: 17:46 INTRA [place] syringe 00 :41 PROCEDURE, Medica l Starting Branch on Mon04/08/22 at 0732, Until Discontinu ed, Routine, Intra-op PHENYLephri 2021-07- No Slow IV Un gretchen ne 1000 0-07 10-07 Push, ONCE ity o f mcg/10 mL 12:32: 17:46 INTRA [place] in 0.9% 00 :41 PROCEDURE, Medica l NaCl Starting Branch syringe on Mon04/08/22 at 0732, Until Discontinu ed, Routine, Intra-op lidocaine 2021-07- No Slow IV Univ ers 1% 0-07 10-07 Push, ONCE ity of (XYLOCAINE) 12:31: 17:46 INTRA [place] 100 mg/10 00 :41 PROCEDURE, Medi erika mL (1 %) Starting Branch injection on Mon04/08/22 at 0731, Until Discontinu ed, Routine, Intra-op FENTanyl PF 2021-07- No Epidural, Univers (SUBLIMAZE 0-07 10-07 ONCE INTRA it y of (PF)) 12:31: 17:46 PROCEDURE, [place] injection 00 :41 Starting Medica l on Mon04/08/22 at 0731, Until Discontinu ed, Routine, Intra-op rocuronium 2021-07- No IV Push, Un [place] (ZEMURON) 0-07 10-07 ONCE INTRA ity of injection 12:31: 17:46 PROCEDURE, [place] 00 :41 Starting Medical on Mon04/08/22 at 0731, Until Discontinu ed, Routine, Intra-op propofoL IV 2021-07- No IV Unive rs infusion 0-07 10-07 Infusion, ity o f 12:31: 17:46 ONCE INTRA [place] 00 :41 PROCEDURE, Medical Starting Branch on Mon04/08/22 at 0731, Until Discontinu ed, Routine, Intra-op lactated 2021-07- No IV Univers ringers IV 0-07 10-07 Infusion, ity of infusion 12:19: 17:46 CONTINUOUS [place] 00 :[place] PRN, Medical Starting Branch on Mon04/08/22 at 0719, Until Discontinu ed, Routine, Intra-op lidocaine-e 2021-07- No Intraderma Univers pinephrine 0-07 10-07 l, ONCE ity o f (XYLOCAINE 12:05: 17:46 INTRA [place] W/EPINEPHRI 00 :41 PROCEDURE, Me dical NE) 1.5 Starting Branch %-1:200,000 on Mon injection 04/08/22 at 0705, Until Discontinu ed, Routine, Intra-op amLODIPine 2021-07 Yes 10mg Take 10 mg U nivers (NORVASC) 0-07 by mouth ity of 10 mg 05:19: daily. [place] tablet 13 [facility] amLODIPine 2021-07 Yes 10mg Take 10 mg U nivers (NORVASC) 0-07 by mouth ity of 10 mg 05:19: daily. [place] tablet 13 [facility] tc 2021- No [id number] 40.1mCi 40.1 Unive rs 99m-tetrofo 03-29 millicurie i ty of [facility] uclan 16:15: 16:04 , [place] (MYOVIEW) 00 :00 Intravenou Medi erika injection s, ONCE, 1 Bran ch 40.1 dose, On [facility] 03/29/22 at 1115, Routine regadenoson 2021- No [id number] .4mg 0.4 mg, IV Univers (LEXISCAN) 03-29 4104 Push, ity of injection 15:15: 16:04 ONCE, [place] 0.4 mg 00 :00 dose, On [facility] 03/29/22 at 1015, Routine
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 ity of capsule 11:24: [address] omeprazole 0 Yes 40mg Take 40 mg U nivers 20 mg 03-11 by mouth ity of capsule 11:24: daily. [address] mesalamine 0 Yes 1200mg Take 1,200 Univers 1.2 gram EC 03-11 mg by ity of tablet 11:24: mouth 4 [place] [address] (four) Medical times Branch daily. hydrALAZINE 0 Yes 50mg Take 50 mg Univers 50 mg 03-11 by mouth 2 ity of tablet 11:24: (two) [place] [address] times [facility] daily. Branch budesonide Yes 9mg Take 9 mg Un [place] 3 mg 24 hr 03-11 by mouth ity o f capsule 11:24: every [place] [address] morning. Medical Branch carvediloL Yes 25mg Take 25 mg U nivers 25 mg 03-11 by mouth 2 ity of tablet 11:24: (two) [address] daily with Branch meals. aspirin 81 0 Yes 81mg Take 81 mg U nivers mg chewable 03-11 by mouth ity of tablet 11:24: daily. [address] calcium/mag Yes Take by Uni vers nesium/zinc 03-11 mouth. ity of (CALCIUM-MA 11:24: [place] GNESUIUM-ZI Medical [place]) Branch 333-133-5 mg Tab Cholecalcif Yes Take by Uni vers naresh, 03-11 mouth. ity of Vitamin D3, 11:24: [place] 125 mcg Medical (5,000 Branch unit) tablet cyanocobala Yes Place Unive rs min, 03-11 under the ity of vitamin 11:24: tongue. [place] [facility] Medical (VITAMIN Branch B-12) 5,000 mcg/mL Drop Levothyroxi Yes Take by Uni vers ne 112 mcg 03-11 mouth. ity of capsule 11:24: [address] omeprazole Yes 40mg Take 40 mg U nivers 20 mg 03-11 by mouth ity of capsule 11:24: daily. [address] mesalamine Yes 1200mg Take 1,200 Univers 1.2 gram EC 09 mg by ity of tablet 11:24: mouth 4 [place] [address] (four) Medical [facility] daily. hydrALAZINE 0 Yes 50mg Take 50 mg Univers 50 mg 03-11 by mouth 2 ity of tablet 11:24: (two) [address] daily. Branch budesonide 0 Yes 9mg Take 9 mg Un [place] 3 mg 24 hr 03-11 by mouth ity o f capsule 11:24: every [place] [address] morning. Medical Branch carvediloL 0 Yes 25mg Take 25 mg U nivers 25 mg 03-11 by mouth 2 ity of tablet 11:24: (two) [address] daily with Branch meals. aspirin 81 0 Yes 81mg Take 81 mg U nivers mg chewable 03-11 by mouth ity of tablet 11:24: daily. [address] calcium/mag Yes Take by Uni vers nesium/zinc 03-11 mouth. ity of (CALCIUM-MA 11:24: [place] GNESUIUM-[address]) Branch 333-133-5 mg Tab Cholecalcif Yes Take by Uni vers naresh, 03-11 mouth. ity of Vitamin D3, 11:24: [place] 125 mcg Medical (5,000 Branch unit) tablet cyanocobala Yes Place Univ rs min, 03-11 under the ity of vitamin 11:24: tongue. [place] B-[address] (VITAMIN Branch B-12) 5,000 mcg/mL Drop Levothyroxi Yes Take by Uni vers ne 112 mcg 03-11 mouth. ity of capsule 11:24: [address] omeprazole 0 Yes 40mg Take 40 mg U nivers 20 mg 03-11 by mouth ity of capsule 11:24: daily. [address] mesalamine 0 Yes 1200mg Take 1,200 Univers 1.2 gram EC 03-11 mg by ity of tablet 11:24: mouth 4 [place] [address] ([facility]) Medical [facility] daily. hydrALAZINE 0 Yes 50mg Take 50 mg Univers 50 mg 03-11 by mouth 2 ity of tablet 11:24: (two) [address] daily. Branch budesonide 0 Yes 9mg Take 9 mg Un [place] 3 mg 24 hr 03-11 by mouth ity o f capsule 11:24: every [place] [address] morning. Medical Branch carvediloL 0 Yes 25mg Take 25 mg U nivers 25 mg 03-11 by mouth 2 ity of tablet 11:24: (two) [place] [address] times Medical daily with Branch meals. aspirin 81 0 Yes 81mg Take 81 mg U nivers mg chewable 03-11 by mouth ity of tablet 11:24: daily. [place] [address] Medical Branch calcium/mag Yes Take by Uni vers nesium/zinc 03-11 mouth. ity of (CALCIUM-MA 11:24: [place] GNESUIUM-ZI Medical [place]) Branch 333-133-5 mg Tab Cholecalcif Yes Take by Uni vers naresh, 03-11 mouth. ity of Vitamin D3, 11:24: [place] 125 mcg Medical (5,000 Branch unit) tablet cyanocobala Yes Place Unive rs min, 03-11 under the ity of vitamin 11:24: tongue. [place] B-12, Medical (VITAMIN Branch B-12) 5,000 mcg/mL Drop Levothyroxi Yes Take by Uni vers ne 112 mcg 03-11 mouth. ity of capsule 11:24: [address] Branch omeprazole Yes 40mg Take 40 mg U nivers 20 mg 03-11 by mouth ity of capsule 11:24: daily. [address] mesalamine Yes 1200mg Take 1,200 Univers 1.2 gram EC 03-11 mg by ity of tablet 11:24: mouth 4 [place] [address] (four) Medical times Branch daily. hydrALAZINE 0 Yes 50mg Take 50 mg Univers 50 mg 03-11 by mouth 2 ity of tablet 11:24: (two) [place] [address] times [facility] daily. Branch budesonide 0 Yes 9mg Take 9 mg Un [place] 3 mg 24 hr 03-11 by mouth ity o f capsule 11:24: every [place] [address] morning. Medical Branch carvediloL 0 Yes 25mg Take 25 mg U nivers 25 mg 03-11 by mouth 2 ity of tablet 11:24: (two) [address] daily with Branch meals. aspirin 81 0 Yes 81mg Take 81 mg U nivers mg chewable 03-11 by mouth ity of tablet 11:24: daily. [address] Branch calcium/mag 0 Yes Take by Uni vers nesium/zinc 03-11 mouth. ity of (CALCIUM-MA [facility]:24: [facility] Branch 333-133-5 mg Tab Cholecalcif 0 Yes Take by Uni vers naresh, 03-11 mouth. ity of Vitamin D3, 11:24: [place] 125 mcg Medical (5,000 Branch unit) tablet cyanocobala Yes Place Unive rs min, 03-11 under the ity of vitamin 11:24: tongue. [place] B-12, Medical (VITAMIN Branch B-12) 5,000 mcg/mL Drop Levothyroxi Yes Take by Uni vers ne 112 mcg 03-11 mouth. ity of capsule 11:24: [address] Branch omeprazole 0 Yes 40mg Take 40 mg U nivers 20 mg 03-11 by mouth ity of capsule 11:24: daily. [address] mesalamine 0 Yes 1200mg Take 1,200 Univers 1.2 gram EC 03-11 mg by ity of tablet 11:24: mouth 4 [place] [address] (four) Medical times [place] daily. hydrALAZINE 0 Yes 50mg Take 50 mg Univers 50 mg 03-11 by mouth 2 ity of tablet 11:24: (two) [place] [address] times [facility] daily. Branch budesonide 2021-0 Yes 9mg Take 9 mg Un [place] 3 mg 24 hr 03-11 by mouth ity o f capsule 11:24: every [place] [address] morning. Medical Branch carvediloL 2021-0 Yes 25mg Take 25 mg U nivers 25 mg 03-11 by mouth 2 ity of tablet 11:24: (two) [address] daily with Branch meals. aspirin 81 2021-0 Yes 81mg Take 81 mg U nivers mg chewable 03-11 by mouth ity of tablet 11:24: daily. [address] calcium/mag 0 Yes Take by Uni vers nesium/zinc 03-11 mouth. ity of (CALCIUM-MA 11:24: [facility] Branch 333-133-5 mg Tab Cholecalcif 0 Yes Take by Uni vers naresh, 03-11 mouth. ity of Vitamin D3, 11:24: [place] 125 mcg Medical (5,000 Branch unit) tablet cyanocobala [address] Unive rs min, 03-11 under the ity of vitamin 11:24: tongue. [facility] Medical (VITAMIN Branch B-12) 5,000 mcg/mL Drop Levothyroxi 0 Yes Take by Uni vers ne 112 mcg 03-11 mouth. ity of capsule 11:24: [place] [address] Medical [place] omeprazole 0 Yes 40mg Take 40 mg U nivers 20 mg 03-11 by mouth ity of capsule 11:24: daily. [address] Branch mesalamine 0 Yes 1200mg Take 1,200 Univers 1.2 gram EC 03-11 mg by ity of tablet 11:24: mouth 4 [place] [address] (four) Medical times Branch daily. hydrALAZINE 0 Yes 50mg Take 50 mg Univers 50 mg 03-11 by mouth 2 ity of tablet 11:24: (two) [place] [address] times [facility] daily. Branch budesonide 0 Yes 9mg Take 9 mg Un [place] 3 mg 24 hr 03-11 by mouth ity o f capsule 11:24: every [place] [address] morning. Medical Branch carvediloL 0 Yes 25mg Take 25 mg U nivers 25 mg 03-11 by mouth 2 ity of tablet 11:24: (two) [place] [address] times [facility] daily with Branch meals. aspirin 81 0 Yes 81mg Take 81 mg U nivers mg chewable 03-11 by mouth ity of tablet 11:24: daily. [place] [address] Medical Branch calcium/mag 0 Yes Take by Uni vers nesium/zinc 03-11 mouth. ity of (CALCIUM-MA 11:24: [place] GNESUIUM-[facility] Medical [place]) Branch 333-133-5 mg Tab Cholecalcif 0 Yes Take by Uni vers naresh, 03-11 mouth. ity of Vitamin D3, 11:24: [place] 125 mcg Medical (5,000 Branch unit) tablet cyanocobala [address] Unive rs min, 03-11 under the ity of vitamin 11:24: tongue. [facility] Medical (VITAMIN Branch B-12) 5,000 mcg/mL Drop Levothyroxi Yes Take by Uni vers ne 112 mcg 03-11 mouth. ity of capsule 11:24: [place] [address] Medical [place] omeprazole 0 Yes 40mg Take 40 mg U nivers 20 mg 03-11 by mouth ity of capsule 11:24: daily. [address] Branch mesalamine Yes 1200mg Take 1,200 Univers 1.2 gram EC 03-11 mg by ity of tablet 11:24: mouth 4 [place] [address] (four) Medical times Branch daily. hydrALAZINE Yes 50mg Take 50 mg Univers 50 mg 03-11 by mouth 2 ity of tablet 11:24: (two) [address] daily. Branch budesonide Yes 9mg Take 9 mg Un [place] 3 mg 24 hr 03-11 by mouth ity o f capsule 11:24: every [place] [address] morning. Medical Branch carvediloL Yes 25mg Take 25 mg U nivers 25 mg 03-11 by mouth 2 ity of tablet 11:24: (two) [address] daily with Branch meals. aspirin 81 0 Yes 81mg Take 81 mg U nivers mg chewable 03-11 by mouth ity of tablet 11:24: daily. [address] calcium/mag Yes Take by Uni vers nesium/zinc 03-11 mouth. ity of (CALCIUM-MA 11:24: [place] GNESUIUM-ZI Medical [place]) Branch 333-133-5 mg Tab Cholecalcif Yes Take by Uni vers naresh, 03-11 mouth. ity of Vitamin D3, 11:24: [place] [address] [facility] Medical (5,000 Branch unit) tablet cyanocobala Yes Place Unive rs min, 03-11 under the ity of vitamin 11:24: tongue. [place] B Medical (VITAMIN Branch B-12) 5,000 mcg/mL Drop amLODIPine Yes 10mg Take 10 mg U nivers (NORVASC) 03-03 by mouth ity of 10 mg 09:50: daily. [place] [address] Medical Branch amLODIPine 0 Yes 10mg Take 10 mg U nivers (NORVASC) 03-03 by mouth ity of 10 mg 09:50: daily. [place] tablet Medical Branch amLODIPine 2021-0 Yes 10mg Take 10 mg U nivers (NORVASC) - by mouth ity of 10 mg 09:50: daily. [place] tablet 47 Medical Branch amLODIPine 2021-0 Yes 10mg Take 10 mg U nivers (NORVASC) - by mouth ity of 10 mg 09:50: daily. [place] tablet Medical Branch amLODIPine 2021-0 Yes 10mg Take 10 mg U nivers (NORVASC) - by mouth ity of 10 mg 09:50: daily. [place] tablet Medical Branch amLODIPine 2021-0 Yes 10mg Take 10 mg U nivers (NORVASC) 03-03 by mouth ity of 10 mg 09:50: daily. [place] tablet 47 Medical Branch amLODIPine 2021-0 Yes 10mg Take 10 mg U nivers (NORVASC) 03-03 by mouth ity of 10 mg 09:50: daily. [place] tablet 47 Medical Branch KCL 20 mEq 2021-0 2- No [id number] 40meq Take 2 Univers tablet -04-03 tablets by ity of 00:00: 04:59 mouth in [place] 00 :00 the [facility] for 30 days. KCL 20 mEq 2-0 2022- No [id number] 40meq Take 2 Univers tablet -04-03 tablets by ity of 00:00: 04:59 mouth in [place] 00 :00 the [facility] for 30 days. KCL 20 mEq 2022-0 2022- No [id number] 40meq Take 2 Univers tablet -07 12- tablets by ity of 00:00: 04:59 mouth in [place] 00 :00 the [facility] for 30 days. KCL 20 mEq 2022-0 2022- No [id number] 40meq Take 2 Univers tablet -07 12- tablets by ity of 00:00: 04:59 mouth in [place] 00 :00 the [facility] for 30 days. KCL 20 mEq 2022-0 2022- No [id number] 40meq Take 2 Univers tablet -07 12- tablets by ity of 00:00: 04:59 mouth in [place] 00 :00 the [facility] for 30 days. KCL 20 mEq 2022-0 2022- No [id number] 40meq Take 2 Univers tablet 03-03 tablets by ity of 00:00: 04:59 mouth in [place] 00 :00 the Medical morning Branch for 30 days. KCL 20 mEq 2-0 2- No [id number] 40meq Take 2 Univers tablet 03-03 tablets by ity of 00:00: 04:59 mouth in [place] 00 :00 the Medical morning Branch for 30 days. KCL 20 mEq 2-0 2- No [id number] 40meq Take 2 Univers tablet 03-03 tablets by ity of 00:00: 04:59 mouth in [place] 00 :00 the Medical morning Branch for 30 days. ondansetron 2022-0 Yes [id number] 4mg Take 1 Univers 4 mg tablet 5-23 tablet by ity of 00:00: mouth [place] 00 every 8 Medical (eight) Branch hours as needed for Nausea and Vomiting (N/V). ondansetron 2022-0 Yes [id number] 4mg Take 1 Univers 4 mg tablet 5-23 tablet by ity of 00:00: mouth [place] 00 every 8 Medical (eight) Branch hours as needed for Nausea and Vomiting (N/V). ondansetron 2022-0 Yes [id number] 4mg Take 1 Univers 4 mg tablet 5-23 tablet by ity of 00:00: mouth [place] 00 every 8 Medical (eight) Branch hours as needed for Nausea and Vomiting (N/V). ondansetron 2022-0 Yes [id number] 4mg Take 1 Univers 4 mg tablet 5-23 tablet by ity of 00:00: mouth [place] 00 every 8 Medical (eight) Branch hours as needed for Nausea and Vomiting (N/V). ondansetron 2022-0 Yes [id number] 4mg Take 1 Univers 4 mg tablet 5-23 tablet by ity of 00:00: mouth [place] 00 every 8 Medical (eight) Branch hours as needed for Nausea and Vomiting (N/V). ondansetron 2022-0 Yes [id number] 4mg Take 1 Univers 4 mg tablet 5-23 tablet by ity of 00:00: mouth [place] 00 every 8 Medical (eight) Branch hours as needed for Nausea and Vomiting (N/V). ondansetron 2022-0 Yes [id number] 4mg Take 1 Univers 4 mg tablet 5-23 tablet by ity of 00:00: mouth [place] 00 every 8 Medical (eight) Branch hours as needed for Nausea and Vomiting (N/V). ondansetron 2022-0 Yes [id number] 4mg Take 1 Univers 4 mg tablet 5-23 tablet by ity of 00:00: mouth [place] 00 every 8 Medical (eight) Branch hours as needed for Nausea and Vomiting (N/V). ondansetron 2-0 Yes [id number] 4mg Take 1 Univers 4 mg tablet 5-23 tablet by ity of 00:00: mouth [place] 00 every 8 Medical (eight) Branch hours as needed for Nausea and Vomiting (N/V). ondansetron 2021-0 2021- No [id number] 4mg Take 1 Univers 4 mg tablet 5-23 10-17 tablet by it y of 00:00: 00:00 mouth [place] 00 :00 every 8 Medical (eight) Branch hours as needed for Nausea and Vomiting (N/V). ondansetron 2021-0 2021- No [id number] 4mg Take 1 Univers 4 mg tablet 5-23 10-17 tablet by it y of 00:00: 00:00 mouth [place] 00 :00 every 8 Medical (eight) Branch hours as needed for Nausea and Vomiting (N/V). dicyclomine 2021-0 2021- No [id number] 10mg Take 1 Univers 10 mg 5-23 08-22 capsule by ity of capsule 00:00: 04:59 mouth 4 [place] 00 :00 (four) Medical times Branch daily for 90 days. simethicone 2021-0 2021- No [id number] 80mg Take 1 Univers 80 mg 5-23 08-22 tablet by ity of chewable 00:00: 04:59 mouth [place] tablet 00 :00 after Medical meals and Branch at bedtime for 90 days. dicyclomine 2021-0 2021- No [id number] 10mg Take 1 [facility] 10 mg 5-23 08-22 capsule by ity of capsule 00:00: 04:59 mouth 4 [place] 00 :00 (four) Medical times Branch daily for 90 days. simethicone 2021-0 2021- No [id number] 80mg Take 1 [facility] 80 mg 5-23 08-22 tablet by ity of chewable 00:00: 04:59 mouth [place] tablet 00 :00 after Medical meals and Branch at bedtime for 90 days. acetaminoph 2021- No [id number] 1{tbl} Take 1 U nivers en-codeine 11-22 tablet by ity of 300-30 mg 00:00: 04:59 mouth [place] tablet 00 :00 every 4 Medical (four) Branch hours as needed for Pain (scale 7-10) (For cancer-rel ated pain.) for up to 28 days. Indication s: chronic pain Immunizations Ordered Filled Date Status Comments Source Immunization Name Immunization Name SARS-COV-2 COVID-19 2021-05-11 Completed Unive rsity of PFIZER VACCINE 00:00:00 [facility] SARS-COV-2 COVID-19 2021-05-11 Completed Unive rsity of PFIZER VACCINE 00:00:00 [facility] SARS-COV-2 COVID-19 2021-05-11 Completed Unive rsity of PFIZER VACCINE 00:00:00 [facility] SARS-COV-2 COVID-19 2021-05-11 Completed Unive rsity of PFIZER VACCINE 00:00:00 [facility] SARS-COV-2 COVID-19 2021-05-11 Completed Unive rsity of PFIZER VACCINE 00:00:00 [facility] SARS-COV-2 COVID-19 2021-05-11 Completed Unive rsity of PFIZER VACCINE 00:00:00 [facility] SARS-COV-2 COVID-19 2021-05-11 Completed Unive rsity of PFIZER VACCINE 00:00:00 [facility] SARS-COV-2 COVID-19 2021-05-11 Completed Unive rsity of PFIZER VACCINE 00:00:00 [facility] SARS-COV-2 COVID-19 2021-05-11 Completed Unive rsity of PFIZER VACCINE 00:00:00 [facility] SARS-COV-2 COVID-19 2021-05-11 Completed Unive rsity of PFIZER VACCINE 00:00:00 [facility] SARS-COV-2 COVID-19 2021-05-11 Completed Unive rsity of PFIZER VACCINE 00:00:00 [facility] SARS-COV-2 COVID-19 2021-05-11 Completed Unive rsity of PFIZER VACCINE 00:00:00 [facility] SARS-COV-2 COVID-19 2021-05-11 Completed Unive rsity of PFIZER VACCINE 00:00:00 [facility] SARS-COV-2 COVID-19 2021-05-11 Completed Unive rsity of PFIZER VACCINE 00:00:00 [facility] SARS-COV-2 COVID-19 2021-05-11 Completed Unive rsity of PFIZER VACCINE 00:00:00 [facility] SARS-COV-2 COVID-19 2021-05-11 Completed Unive rsity of PFIZER VACCINE 00:00:00 [facility] SARS-COV-2 COVID-19 2021-05-11 Completed Unive rsity of PFIZER VACCINE 00:00:00 [facility] SARS-COV-2 COVID-19 2021-05-11 Completed Unive rsity of PFIZER VACCINE 00:00:00 [facility] SARS-COV-2 COVID-19 2021-05-11 Completed Unive rsity of PFIZER VACCINE 00:00:00 [facility] SARS-COV-2 COVID-19 2021-05-11 Completed Unive rsity of PFIZER VACCINE 00:00:00 [facility] SARS-COV-2 COVID-19 2021-05-11 Completed Unive rsity of PFIZER VACCINE 00:00:00 [facility] SARS-COV-2 COVID-19 2021-05-11 Completed Unive rsity of PFIZER VACCINE 00:00:00 [facility] SARS-COV-2 COVID-19 2021-05-11 Completed Unive rsity of PFIZER VACCINE 00:00:00 [facility] SARS-COV-2 COVID-19 2021-05-11 Completed Unive rsity of PFIZER VACCINE 00:00:00 [facility] SARS-COV-2 COVID-19 2021-05-11 Completed Unive rsity of PFIZER VACCINE 00:00:00 [facility] SARS-COV-2 COVID-19 2020-08-28 Completed Unive rsity of PFIZER VACCINE 00:00:00 [facility] SARS-COV-2 COVID-19 2020-08-28 Completed Unive rsity of PFIZER VACCINE 00:00:00 [place] [facility] SARS-COV-2 COVID-19 2020-08-28 Completed Unive rsity of PFIZER VACCINE 00:00:00 [facility] SARS-COV-2 COVID-19 2020-08-28 Completed Unive rsity of PFIZER VACCINE 00:00:00 [facility] SARS-COV-2 COVID-19 2020-08-28 Completed Unive rsity of PFIZER VACCINE 00:00:00 [facility] SARS-COV-2 COVID-19 2020-08-28 Completed Unive rsity of PFIZER VACCINE 00:00:00 [facility] SARS-COV-2 COVID-19 2020-08-28 Completed Unive rsity of PFIZER VACCINE 00:00:00 [facility] SARS-COV-2 COVID-19 2020-08-28 Completed Unive rsity of PFIZER VACCINE 00:00:00 [facility] SARS-COV-2 COVID-19 2020-08-28 Completed Unive rsity of PFIZER VACCINE 00:00:00 [facility] SARS-COV-2 COVID-19 2020-08-28 Completed Unive rsity of PFIZER VACCINE 00:00:00 [facility] SARS-COV-2 COVID-19 2020-08-28 Completed Unive rsity of PFIZER VACCINE 00:00:00 [facility] SARS-COV-2 COVID-19 2020-08-28 Completed Unive rsity of PFIZER VACCINE 00:00:00 [facility] SARS-COV-2 COVID-19 2020-08-28 Completed Unive rsity of PFIZER VACCINE 00:00:00 [facility] SARS-COV-2 COVID-19 2020-08-28 Completed Unive rsity of PFIZER VACCINE 00:00:00 [facility] SARS-COV-2 COVID-19 2020-08-28 Completed Unive rsity of PFIZER VACCINE 00:00:00 [facility] SARS-COV-2 COVID-19 2020-08-28 Completed Unive rsity of PFIZER VACCINE 00:00:00 [facility] SARS-COV-2 COVID-19 2020-08-28 Completed Unive rsity of PFIZER VACCINE 00:00:00 [facility] SARS-COV-2 COVID-19 2020-08-28 Completed Unive rsity of PFIZER VACCINE 00:00:00 [facility] SARS-COV-2 COVID-19 2020-08-28 Completed Unive rsity of PFIZER VACCINE 00:00:00 [facility] SARS-COV-2 COVID-19 2020-08-28 Completed Unive rsity of PFIZER VACCINE 00:00:00 [facility] SARS-COV-2 COVID-19 2020-08-28 Completed Unive rsity of PFIZER VACCINE 00:00:00 [facility] SARS-COV-2 COVID-19 2020-08-28 Completed Unive rsity of PFIZER VACCINE 00:00:00 [facility] SARS-COV-2 COVID-19 2020-08-28 Completed Unive rsity of PFIZER VACCINE 00:00:00 [facility] SARS-COV-2 COVID-19 2020-08-28 Completed Unive rsity of PFIZER VACCINE 00:00:00 [facility] SARS-COV-2 COVID-19 2020-08-28 Completed Unive rsity of PFIZER VACCINE 00:00:00 [facility] SARS-COV-2 COVID-19 2020-07-31 Completed Unive rsity of PFIZER VACCINE 00:00:00 [facility] SARS-COV-2 COVID-19 2020-07-31 Completed Unive rsity of PFIZER VACCINE 00:00:00 [facility] SARS-COV-2 COVID-19 2020-07-31 Completed Unive rsity of PFIZER VACCINE 00:00:00 [facility] SARS-COV-2 COVID-19 2020-07-31 Completed Unive rsity of PFIZER VACCINE 00:00:00 [facility] SARS-COV-2 COVID-19 2020-07-31 Completed Unive rsity of PFIZER VACCINE 00:00:00 [facility] SARS-COV-2 COVID-19 2020-07-31 Completed Unive rsity of PFIZER VACCINE 00:00:00 [facility] SARS-COV-2 COVID-19 2020-07-31 Completed Unive rsity of PFIZER VACCINE 00:00:00 [facility] SARS-COV-2 COVID-19 2020-07-31 Completed Unive rsity of PFIZER VACCINE 00:00:00 [facility] SARS-COV-2 COVID-19 2020-07-31 Completed Unive rsity of PFIZER VACCINE 00:00:00 [facility] SARS-COV-2 COVID-19 2020-07-31 Completed Unive rsity of PFIZER VACCINE 00:00:00 [facility] SARS-COV-2 COVID-19 2020-07-31 Completed Unive rsity of PFIZER VACCINE 00:00:00 [facility] SARS-COV-2 COVID-19 2020-07-31 Completed Unive rsity of PFIZER VACCINE 00:00:00 [facility] SARS-COV-2 COVID-19 2020-07-31 Completed Unive rsity of PFIZER VACCINE 00:00:00 [facility] SARS-COV-2 COVID-19 2020-07-31 Completed Unive rsity of PFIZER VACCINE 00:00:00 [facility] SARS-COV-2 COVID-19 2020-07-31 Completed Unive rsity of PFIZER VACCINE 00:00:00 [facility] SARS-COV-2 COVID-19 2020-07-31 Completed Unive rsity of PFIZER VACCINE 00:00:00 [facility] SARS-COV-2 COVID-19 2020-07-31 Completed Unive rsity of PFIZER VACCINE 00:00:00 [facility] SARS-COV-2 COVID-19 2020-07-31 Completed Unive rsity of PFIZER VACCINE 00:00:00 [facility] SARS-COV-2 COVID-19 2020-07-31 Completed Unive rsity of PFIZER VACCINE 00:00:00 [facility] SARS-COV-2 COVID-19 2020-07-31 Completed Unive rsity of PFIZER VACCINE 00:00:00 [facility] SARS-COV-2 COVID-19 2020-07-31 Completed Unive rsity of PFIZER VACCINE 00:00:00 [facility] SARS-COV-2 COVID-19 2020-07-31 Completed Unive rsity of PFIZER VACCINE 00:00:00 [facility] SARS-COV-2 COVID-19 2020-07-31 Completed Unive rsity of PFIZER VACCINE 00:00:00 [facility] SARS-COV-2 COVID-19 2020-07-31 Completed Unive rsity of PFIZER VACCINE 00:00:00 [facility] SARS-COV-2 COVID-19 2020-07-31 Completed Unive rsity of PFIZER VACCINE 00:00:00 [place] [facility] SARS-COV-2 COVID-19 Unknown Completed Unive rsity of PFIZER VACCINE [place] [facility] SARS-COV-2 COVID-19 Unknown Completed Unive rsity of PFIZER VACCINE [place] [facility] SARS-COV-2 COVID-19 Unknown Completed Unive rsity of PFIZER VACCINE [place] [facility] SARS-COV-2 COVID-19 Unknown Completed Unive rsity of PFIZER VACCINE [place] [facility] SARS-COV-2 COVID-19 Unknown Completed Unive rsity of PFIZER VACCINE [place] [facility] SARS-COV-2 COVID-19 Unknown Completed Unive rsity of PFIZER VACCINE [place] [facility] SARS-COV-2 COVID-19 Unknown Completed Unive rsity of PFIZER VACCINE [place] [facility] SARS-COV-2 COVID-19 Unknown Completed Unive rsity of PFIZER VACCINE [place] [facility] SARS-COV-2 COVID-19 Unknown Completed Unive rsity of PFIZER VACCINE [place] [facility] SARS-COV-2 COVID-19 Unknown Completed Unive rsity of PFIZER VACCINE [place] [facility] SARS-COV-2 COVID-19 Unknown Completed Unive rsity of PFIZER VACCINE [place] [facility] SARS-COV-2 COVID-19 Unknown Completed Unive rsity of PFIZER VACCINE [place] [facility] SARS-COV-2 COVID-19 Unknown Completed Unive rsity of PFIZER VACCINE [place] [facility] SARS-COV-2 COVID-19 Unknown Completed Unive rsity of PFIZER VACCINE [place] [facility] SARS-COV-2 COVID-19 Unknown Completed [facility]ive rsity of PFIZER VACCINE [place] [facility] Vital Signs Vital Name Observation Time Observation Value Comments Source Systolic blood 2022-05-02 16:22:00 128 mm[Hg] Univer sity of pressure [facility] Diastolic blood 2022-05-02 16:22:00 72 mm[Hg] Unive rsity of pressure [facility] Heart rate 2022-05-02 16:22:00 65 /min [facility] Body temperature 2022-05-02 16:22:00 36.72 Gabriela Univ ersity of [facility] Respiratory rate 2022-05-02 16:22:00 18 /min [facility] 2022-05-02 16:22:00 167.6 cm [facility] [place] [facility] Body weight 2022-05-02 16:22:00 60.238 kg [facility] [place] [facility] BMI 2022-05-02 16:22:00 21.43 kg/m2 [facility] [place] [facility] Body weight 2022-04-22 15:16:00 61.598 kg [facility] [place] [facility] BMI 2022-04-22 15:16:00 21.92 kg/m2 [facility] [place] [facility] Systolic blood 2022-04-20 14:41:00 132 mm[Hg] Univer [facility]ity of pressure [place] [facility] Diastolic blood 2022-04-20 14:41:00 68 mm[Hg] [facility]ive rs[facility] of pressure [place] [facility] Heart rate 2022-04-20 14:41:00 70 /min [facility] [place] [facility] Respiratory rate 2022-04-20 14:41:00 16 /min [facility] Body height 2022-04-20 14:41:00 167.6 cm [facility] Body weight 2022-04-20 14:41:00 63.413 kg [facility] [place] [facility] BMI 2022-04-20 14:41:00 22.56 kg/m2 [facility] [place] [facility] Oxygen saturation in 2022-04-20 14:41:00 97 /min room air [facility] of Arterial blood by [facility] Pulse oximetry Branch Systolic blood 2022-04-18 17:07:00 111 mm[Hg] Univer sity of pressure [place] [facility] Diastolic blood 2022-04-18 17:07:00 46 mm[Hg] Unive rsity of pressure [place] [facility] Respiratory rate 2022-04-18 17:07:00 18 /min [facility] [place] [facility] Oxygen saturation in 2022-04-18 17:07:00 90 /min [facility] of Arterial blood by [facility] Pulse oximetry Branch Heart rate 2022-04-18 12:30:00 70 /min [facility] [place] [facility] Body temperature 2022-04-18 12:30:00 36.17 Gabriela [facility] [place] [facility] Body height 2022-04-08 10:56:00 167.6 cm [facility] [place] [facility] Body weight 2022-04-08 10:56:00 60.5 kg [facility] [place] [facility] BMI 2022-04-08 10:56:00 21.53 kg/m2 [facility] [place] [facility] Systolic blood 2022-04-08 10:56:00 150 mm[Hg] [facility] of [facility] [place] [facility] Diastolic blood 2022-04-08 10:56:00 69 mm[Hg] [facility] rs[facility] of [facility] [place] [facility] Heart rate 2022-04-08 10:56:00 60 /min [facility] [place] [facility] Body temperature 2022-04-08 10:56:00 36.22 Gabriela [facility] [place] [facility] Respiratory rate 2022-04-08 10:56:00 18 /min [facility] [place] [facility] Body height 2022-04-08 10:56:00 167.6 cm [facility] [place] [facility] Body weight 2022-04-08 10:56:00 60.5 kg [facility] [place] [facility] BMI 2022-04-08 10:56:00 21.53 kg/m2 [facility] [place] [facility] Oxygen saturation in 2022-04-08 10:56:00 98 /min [facility] Ar[facility] blood by [place] [employer] [facility] Pulse oximetry [facility] Systolic blood 2022-03-11 16:27:00 171 mm[Hg] [facility]iver [facility]ity of [facility] [place] [facility] Diastolic blood 2022-03-11 16:27:00 89 mm[Hg] [facility]ive rsity of pressure [place] [facility] Heart rate 2022-03-11 16:27:00 64 /min [facility] [place] [facility] Body temperature 2022-03-11 16:22:00 35.61 Gabriela [facility] [place] [facility] Body height 2022-03-11 16:22:00 167.6 cm [facility] [place] [facility] Body weight 2022-03-11 16:22:00 61.236 kg [facility] [place] [facility] BMI 2022-03-11 16:22:00 21.79 kg/m2 [facility] [place] [facility] Oxygen saturation in 2022-03-11 16:22:00 99 /min [facility] Arterial blood by [place] [employer] [facility] Pulse oximetry Branch Systolic blood 2022-03-11 16:27:00 171 mm[Hg] [facility]iver [facility]ity of pressure [place] [facility] Diastolic blood 2022-03-11 16:27:00 89 mm[Hg] [facility]ive rsity of pressure [place] [facility] Heart rate 2022-03-11 16:27:00 64 /min [facility] [place] [facility] Body temperature 2022-03-11 16:22:00 35.61 Gabriela [facility] [place] [facility] Body height 2022-03-11 16:22:00 167.6 cm [facility] [place] [facility] Body weight 2022-03-11 16:22:00 61.236 kg [facility] [place] [facility] BMI 2022-03-11 16:22:00 21.79 kg/m2 Universi ty of [facility] Oxygen saturation in 2022-03-11 16:22:00 99 /min University Arterial blood by [facility] Pulse oximetry Branch Systolic blood 2021-12-20 18:54:00 171 mm[Hg] [facility]iver [facility]ity of [facility] [place] [facility] Diastolic blood 2021-12-20 18:54:00 75 mm[Hg] [facility] rs[facility] of pressure [place] [facility] Heart rate 2021-12-20 18:54:00 60 /min [facility] [place] [facility] Body temperature 2021-12-20 18:53:00 36.83 Gabriela [facility] [place] [facility] Respiratory rate 2021-12-20 18:53:00 20 /min [facility] [place] [facility] Body height 2021-12-20 18:53:00 167.6 cm [facility] [place] [facility] Body weight 2021-12-20 18:53:00 62.097 kg [facility] [place] [facility] BMI 2021-12-20 18:53:00 22.10 kg/m2 [facility] [place] [facility] Systolic blood 2021-12-20 18:54:00 171 mm[Hg] [facility] of [facility] [place] [facility] Diastolic blood 2021-12-20 18:54:00 75 mm[Hg] [facility] rs[facility] of pressure [place] [facility] Heart rate 2021-12-20 18:54:00 60 /min [facility] [place] [facility] Body temperature 2021-12-20 18:53:00 36.83 Gabriela [facility] [place] [facility] Respiratory rate 2021-12-20 18:53:00 20 /min [facility] Body height 2021-12-20 18:53:00 167.6 cm [facility] Body weight 2021-12-20 18:53:00 62.097 kg [facility] BMI 2021-12-20 18:53:00 22.10 kg/m2 [facility] Procedures Procedure Date / Time Performing Source Performed Clinician BASIC METABOLIC PANEL (NA, K, 2022-04-18 Cristal [facility] CL, CO2, GLUCOSE, BUN, 16:45:00 [facility] CREATININE, [place]) MAGNESIUM 2022-04-17 [facility] 10:07[facility]00 [facility] BASIC METABOLIC PANEL (NA, K, 2022-04-17 [facility], CO2, GLUCOSE, BUN, 10:07:00 [facility] CREATININE, CA) EXTRA TUBE LAV 2022-04-17 Guy [facility] ex 10:07:00 [facility] MAGNESIUM 2022-04-16 [facility] 20[facility]11:00 [facility] BASIC METABOLIC PANEL (NA, K, 2022-04-16 Cristal [facility] CL, CO2, GLUCOSE, BUN, 20:11:00 [facility] CREATININE, CA) BASIC METABOLIC PANEL (NA, K, 2022-04-15 Brittany Jung [facility] CL, CO2, GLUCOSE, BUN, 21:55:00 [facility] CREATININE, CA) MAGNESIUM 2022-04-15 [facility] 10:43:00 [facility] BASIC METABOLIC PANEL (NA, K, 2022-04-15 Brittany Jung [facility] CL, CO2, GLUCOSE, BUN, 10:43:00 [facility] CREATININE, CA) CBC WITH DIFF 2022-04-15 [facility] 10:[facility] POTASSIUM, URINE RANDOM 2022-04-15 [facility] 06:22:00 [facility] SODIUM, URINE RANDOM 2022-04-15 [facility] BASIC METABOLIC PANEL (NA, K, 2022-04-14 Brittany Jung [facility] CL, CO2, GLUCOSE, BUN, 23:55:00 [facility] CREATININE, CA) MAGNESIUM 2022-04-14 [facility] 11:01:00 Medical Branch CORTISOL STIMULATION 60 MIN 2022-04-14 [facility] 11:01:00 [facility] BASIC METABOLIC PANEL (NA, K, 2022-04-14 Cristal [facility] CL, CO2, GLUCOSE, BUN, 11:01:00 [facility] CREATININE, CA) CORTISOL STIMULATION 30 MIN 2022-04-14 [facility] 10:31:00 [facility] PHOSPHORUS 2022-04-13 [facility] 09:40:00 [facility] MAGNESIUM 2022-04-13 [facility] 09:40:00 Medical Branch THYROID STIMULATING HORMONE 2022-04-13 [facility] 09:40:00 [facility] BASIC METABOLIC PANEL (NA, K, 2022-04-13 [facility], CO2, GLUCOSE, BUN, 09:40:00 [facility] CREATININE, CA) CBC WITH DIFF 2022-04-13 [facility] 09:40:00 [facility] ADRENOCORTICOTROPIC HORMONE 2022-04-13 [facility] 08:00:00 [facility] ALBUMIN 2022-04-13 [facility] 08:00:00 [facility] BASIC METABOLIC PANEL (NA, K, 2022-04-13 [facility] CL, CO2, GLUCOSE, BUN, 08:00:00 [facility] CREATININE, CA) CORTISOL STIMULATION 0 MIN 2022-04-13 [facility] 08:00:00 [facility] XR CHEST 1 VW 2022-04-12 [facility] 21:18:00 [facility] OSMOLALITY, SERUM OR PLASMA 2022-04-12 Gagan Jaquez [facility] 20:42:00 [facility] BASIC METABOLIC PANEL (NA, K, 2022-04-12 Brittany Jung Tirso [facility] CL, CO2, GLUCOSE, BUN, 20:42:00 [facility] CREATININE, CA) URINE CULTURE 2022-04-12 [facility] 16:41:00 [facility] [place] OSMOLALITY URINE 2022-04-12 [facility] 16:35:00 Antonina, [facility] h URINALYSIS 2022-04-12 [facility] 16:35:00 [facility] CREATININE, URINE RANDOM 2022-04-12 [facility] 16:35:00 Antonina, [facility] h UREA NITROGEN, URINE RANDOM 2022-04-12 [facility] 16:35:00 Antonina, [facility] h SODIUM, URINE RANDOM 2022-04-12 [facility] 16:35:00 Antonina [facility] CHLORIDE, URINE RANDOM 2022-04-12 [facility] 16:35:00 Antonina, [facility] h XR KUB 2022-04-12 [facility] 13:35:00 [facility] PHOSPHORUS 2022-04-12 [facility] 09:44:00 [facility] MAGNESIUM 2022-04-12 [facility] 09:44:00 [facility] HEPATIC FUNCTION PANEL 2022-04-12 [facility] ([id number] (ALB,T.PRO,BILI 09:44:00 [facility] T,BU/BC,ALT,AST,ALK PHOS) BASIC METABOLIC PANEL (NA, K, 2022-04-12 [facility] CL, CO2, GLUCOSE, BUN, 09:44:00 [facility] CREATININE, [place]) CBC WITH DIFF 2022-04-12 [facility] 09:44:00 Medical Branch PHOSPHORUS 2022-04-11 Joaquín Dowd, [facility] exas 08:18:00 [facility] Medical Branch LIPASE 2022-04-11 Yanes Dowd, [facility] 08:18:00 [facility] MAGNESIUM 2022-04-11 [facility] 08:18:00 [facility] HEPATIC FUNCTION PANEL 2022-04-11 Joaquín Iglesiasa, [facility] ([id number]) (ALB,T.PRO,BILI 08:18:00 [facility] Medical Branch T,BU/BC,ALT,AST,ALK PHOS) BASIC METABOLIC PANEL (NA, K, 2022-04-11 Joaquín Dowd, [facility] CL, CO2, GLUCOSE, BUN, 08:18:00 [facility] CREATININE, [place]) CBC WITH DIFF 2022-04-11 Yanes Dowd, [facility] exas 08:18:00 [facility] Medical Branch PHOSPHORUS 2022-04-11 [facility] exas 08:18:00 [facility] Medical Branch LIPASE 2022-04-11 Yanes Dowd, [facility] exas 08:18:00 [facility] Medical Branch MAGNESIUM 2022-04-11 [facility], [facility] exas 08:18:00 [facility] HEPATIC FUNCTION PANEL 2022-04-11 Yanes Mejia, [facility] ([id number]) (ALB,T.PRO,BILI 08:18:00 [facility] Medical Branch T,BU/BC,ALT,AST,ALK PHOS) BASIC METABOLIC PANEL (NA, K, 2022-04-11 [facility]aquín Dowd, [facility], CO2, GLUCOSE, BUN, 08:18:00 [facility] CREATININE, CA) CBC WITH DIFF 2022-04-11 Yanes Dowd, [facility] exas 08:18:00 [facility] LIPASE 2022-04-10 [facility] 10:04:00 Medical Branch MAGNESIUM 2022-04-10 Joqauín Dowd, [facility] exas 10:04:00 [facility] HEPATIC FUNCTION PANEL 2022-04-10 Joaquín Iglesiasa, [facility] ([id number]) (ALB,T.PRO,BILI 10:04:00 [facility] [place] T,BU/BC,ALT,AST,ALK PHOS) BASIC METABOLIC PANEL (NA, K, 2022-04-10 Joaquín Iglesiasa, [facility], CO2, GLUCOSE, BUN, 10:04:00 [facility] CREATININE, CA) CBC WITH DIFF 2022-04-10 [facility] 10:04:00 [facility] Branch LIPASE 2022-04-10 Erich [facility] xas 10:04:00 Medical Branch MAGNESIUM 2022-04-10 [facility] exas 10:04:00 [facility] HEPATIC FUNCTION PANEL 2022-04-10 Yanes Dowd, [facility] ([id number]) (ALB,T.PRO,BILI 10:04:00 [facility] T,BU/BC,ALT,AST,ALK PHOS) BASIC METABOLIC PANEL (NA, K, 2022-04-10 Joaquín Iglesiasa, [facility], CO2, GLUCOSE, BUN, 10:04:00 [facility] CREATININE, CA) CBC WITH DIFF 2022-04-10 Yanes Dowd, [facility] exas 10:04:00 [facility] PHOSPHORUS 2022-04-09 [facility] exas 10:01:00 [facility] LIPASE 2022-04-09 Yanes Dowd, [facility] exas 10:01:00 [facility] [place] MAGNESIUM 2022-04-09 [facility], [facility] exas 10:01:00 [facility] HEPATIC FUNCTION PANEL 2022-04-09 [facility] ([id number][facility] (ALB,T.PRO,BILI 10:01:00 [facility] T,BU/BC,ALT,AST,ALK PHOS) BASIC METABOLIC PANEL (NA, K, 2022-04-09 Yanesaggie Iglesiasa, [facility], CO2, GLUCOSE, BUN, 10:01:00 [facility] CREATININE, CA) CBC WITH DIFF 2022-04-09 Joaquín Dowd, [facility] exas 10:01:00 [facility] PHOSPHORUS 2022-04-09 Joaquín Dowd, [facility] exas 10:01:00 [facility] LIPASE 2022-04-09 Joaquín Dowd, [facility] exas 10:01:00 [facility] MAGNESIUM 2022-04-09 [facility], [facility] exas 10:01:00 [facility] HEPATIC FUNCTION PANEL 2022-04-09 Yanes Mejia, [facility] ([id number]) (ALB,T.PRO,BILI 10:01:00 [facility] T,BU/BC,ALT,AST,ALK PHOS) BASIC METABOLIC PANEL (NA, K, 2022-04-09 Joaquín Iglesiasa, [facility], CO2, GLUCOSE, BUN, 10:01:00 [facility] CREATININE, CA) CBC WITH DIFF 2022-04-09 Joaquín Dowd, [facility] exas 10:01:00 [facility] BASIC METABOLIC PANEL (NA, K, 2022-04-08 Joaquín Iglesiasa, [facility], CO2, GLUCOSE, BUN, 17:43:00 [facility] CREATININE, CA) CBC WITH DIFF 2022-04-08 Joaquín Dowd, [facility] exas 17:43:00 [facility] BASIC METABOLIC PANEL (NA, K, 2022-04-08 Joaquín Iglesiasa, [facility] [place] CL, CO2, GLUCOSE, BUN, 17:43:00 [facility] CREATININE, CA) CBC WITH DIFF 2022-04-08 Joaquín Dowd, [facility] exas 17:43:00 [facility] ABG+COOX+NA+K+GLU+CA2+ 2022-04-08 Guy [facility] 15:58:00 Medical Branch ABG+COOX+NA+K+GLU+CA2+ 2022-04-08 Guy, [facility] 15:58:00 Medical Branch ABG+COOX+NA+K+GLU+CA2+ 2022-04-08 Guy, [facility] 15:13:00 Medical Branch ABG+COOX+NA+K+GLU+CA2+ 2022-04-08 [facility] 15:13[facility]00 [facility] SURGICAL PATHOLOGY EXAM 2022-04-08 [facility] 14:44:00 [facility] ARTERIAL LINE 2022-04-08 [facility] xa 13:06:00 CENTRAL NEURAXIAL BLOCK 2022-04-08 Ma[facility] 12:40:41 [facility] Branch INTUBATION 2022-04-08 [facility] xas 12:35:00 EXCISION HEPATOPANCREATIC 2022-04-08 Guy [facility] 12:00[facility]00 [facility] EXCISION HEPATOPANCREATIC 2022-04-08 [facility] AMPULLA 12:00:00 [facility] HB ABO GROUPING 2022-04-08 [facility] xas 11:21:00 [facility] HB ABO GROUPING 2022-04-08 [facility] xas 11:21:00 [facility] HOSPITAL ADMISSION 2022-04-08 Doctor Unassigned, [facility] 05:01:00 [place] [facility] NM MYOCARDIUM PERFUSION 2022-03-29 Zane, [facility] STRESS AND REST 16:37:00 [facility] NM MYOCARDIUM PERFUSION 2022-03-29 Zane, [facility] STRESS AND REST 16:37:00 [facility] NM MYOCARDIUM PERFUSION 2022-03-29 Zane, [facility] STRESS AND REST 16:37:00 [facility] NM MYOCARDIUM PERFUSION 2022-03-29 Zane, [facility] STRESS AND REST 16:37:00 [facility] EXERCISE STRESS TEST 2022-03-29 Doctor Unassigned, [facility] [place] 15:57:34 [facility] Encounters Start End Encounter Admission Attending Care Care Encounter Source Date/Time Date/Time Type Type Clinicians Facility Department ID 2021-12-21 Outpatient R CHICO MOMIN [facility] [id number] Univers 13:52:09 CHICO MOMIN i [facility] 2022-06-15 2022-06-15 Telephone MARANDA Tovar 1.2.840.114 [id number] Univers 00:00:00 00:00:00 Erasmo Y HEALTH 350.1.13.10 [place] [id number] [address] 2022-06-15 2022-06-15 Patient EMMA Tovar 1.2.923.974 [id number] Univers 00:00:00 00:00:00 Secure Msg Erasmo Y HEALTH 350.1.13.10 [place] [id number] 2022-05-02 2022-05-02 Outpatient R GUY [facility] [id number] Univers 11:15:00 11:35:04 ERASMO ity of [facility] 2022-05-02 2022-05-02 Office MARANDA Tovar 1.2.359.524 [id number] Univers 11:15:00 11:35:04 Visit Erasmo Y HEALTH 350.1.13.10 it[place] [id number] [address] 2022-04-27 2022-04-27 Telephone MARANDA Tovar 1.2.840.114 [id number] Univers 00:00:00 00:00:00 Erasmo Y HEALTH 350.1.13.10 it[place] [id number] [address] 2022-04-26 2022-04-26 Telephone MARANDA Tovar 1.2.840.114 [id number] Univers 00:00:00 00:00:00 Erasmo Y HEALTH 350.1.13.10 it[place] [id number] [facility] [address] [place] 2022-04-22 2022-04-22 Nurse Nurse, [facility] Surgery [facility] 1.2. 840.114 [id number] Univers 10:00:00 10:30:00 Visit Karolina Nolascotney MELE 350.1.13. 10 ity of [place] [id number] [place] dical NAL 204 [facility] 2022-04-22 2022-04-22 [id number] Univers 10:00:00 10:00:00 MARIBETH reddannette o [facility] 2022-04-20 2022-04-20 [facility] [id number] Univers 09:45:00 10:44:34 MARIBETH reddannette o [facility] 2022-04-20 2022-04-20 Office Nolasco, [facility] 1.2.840.114 [id number] Univers 09:45:00 10:44:34 Visit Maribeth VICTORROBBI 350.1.13.10 ity of [facility] 4.2.7.2.[place] [id number] [place] dical NAL 204 [facility] 2022-04-19 2022-04-19 Transition ANUP Lowery 1.2.840.114 [id number] Univers 00:00:00 00:00:00 of Care Nyla LEBRON 350.1.13.10 it y of [place] [id number] [facility] [address] [place] 2022-04-19 2022-04-19 Telephone MARANDA Tovar 1.2.840.114 [id number] Univers 00:00:00 00:00:00 Erasmo [facility] 350.1.13.10 ity of CL[place] [id number] [facility] [address] [place] 2022-04-08 2022-04-18 Inpatient R GUY [facility] PAN [id number] Univers 05:19:00 17:45:00 ERASMO ity of [facility] 2022-04-08 2022-04-18 [facility] ROMY Tovar 1.2.840.114 [id number] Univers 05:19:00 17:45:00 Encounter Erasmo MATHIS 350.1.13.10 ity of HOSPITAL 4.2.7.2.686 [place] [id number] [facility] 092 [address] 2022-04-08 2022-04-08 Anesthesia Gisella Boothe 1.2.84 0.114 [id number] Univers 07:19:00 12:46:00 Event Galo Dc DELFINA 350.1.13.10 ity of HOSPITAL 4.2.7.2.686 [place] [id number] [facility] 103 [address] 2022-04-08 2022-04-08 Surgery ROMY Tovar 1.2.840.114 [id number] Univers 07:00:00 11:30:00 Erasmo MATHIS 350.1.13.[address] [facility] 4.2.7.2.686 [place] as [id number] [facility] 103 [address] 2022-04-08 2022-04-08 Orders Doctor YOLANDA 1.2.840.114 [id number] Univers 00:00:00 00:00:00 Only Unassigned, DELFINA 350.1.13.[address] [facility] 4.2.7.2.686 [place] as [id number] [facility] 009 Branch 2022-04-04 2022-04-04 [facility] [id number] Univers 09:45:18 23:59:00 LILI law o f [facility] 2022-04-04 2022-04-04 Outpatient R [facility] [id number] Univers 10:00:00 10:00:00 LILI laney o f [facility] 2022-03-30 2022-03-30 Patient [facility] 1.2.840.114 [id number] Univers 00:00:00 00:00:00 Secure Msg Lili SHABAZZ 350.1.13.10 ity of [facility] 4.2.7.2.[place] [id number] [place] dical NAL 059 [facility] 2022-03-29 2022-03-29 [facility] 1.2.840.114 [id number] Univers 08:52:09 23:59:00 Encounter Qiangjun [place] 350.1.13.10 it[place]2.7.2.[place] C[place] [id number] [facility] 805 Branch 2022-03-29 2022-03-29 [facility] 1.2.840.114 [id number] Univers 08:51:52 08:51:52 Encounter Qiangjun [place] 350.1.13.10 ity [place] 4.2.7.2.[place] C[place] [id number] [facility] 805 [address] 2022-03-29 2022-03-29 [facility] 1.2.840.114 [id number] Univers 08:51:23 08:51:23 Encounter Qiangjun [place] 350.1.13.10 ity of [place].7.2.[place] [id number] [place] [address] [place] 2022-03-29 2022-03-29 Outpatient [facility] [id number] Univers 08:50:41 08:50:41 QIANGJUN ity o f [facility] 2022-03-29 2022-03-29 [facility] 1.2.840.114 [id number] Univers 08:50:41 08:50:41 Encounter Qiacarmencitajun [place] 350.1.13.10 ity of [place] 4.2.7.2.686 [place] [id number] [place] [address] [place] 2022-03-29 2022-03-29 Outpatient R [facility] [id number] Univers 00:00:00 00:00:00 QIANGJUN ity o f [facility] 2022-03-27 2022-03-27 Patient [facility] 1.2.840.114 [id number] Univers 00:00:00 00:00:00 Secure Msg Qiangjun [place] 350.1.13.10 ity of [place] 4.2.7.2.[place] [id number] [place] dical [facility] 2022-03-24 2022-03-24 Outpatient R ZANE, [facility] [id number] Univers 13:46:52 23:59:00 LILI pereira [facility] 2022-03-24 2022-03-24 Outpatient R ZANE, [facility] [id number] Univers 14:00:00 14:00:00 LILI pereira [facility] 2022-03-21 2022-03-21 Telephone MARANDA Tovar 1.2.840.114 [id number] Univers 00:00:00 00:00:00 [facility] 350.1.13.10 ity of [facility] 4.2.7.2.[place] [id number] [address] 2022-03-11 2022-03-11 Outpatient R ZANE, [facility] [id number] Univers 11:20:00 11:48:40 LILI abel [facility] 2022-03-11 2022-03-11 Office [facility], [facility] 1.2.840.114 [id number] Univers 11:20:00 11:48:40 Visit Lili [place] 350.1.13.10 ity of [place] [id number] [place] dic[address] 2022-03-11 2022-03-11 Office [facility] 1.2.840.114 [id number] Univers 11:20:00 11:48:40 Visit Lili [place] 350.1.13.10 [place] of [place].2.[place] [id number] [place] dictx NAL [address] [place] [address] 2022-03-11 2022-03-11 Outpatient R [facility], [facility] [id number] Univers 11:20:00 11:48:40 LILI abel [facility] 2022-03-04 2022-03-04 Patient Doctor YOLANDA 1.2.840.114 [id number] Univers 00:00:00 00:00:00 Secure Msg Unassigned, DELFINA 350.1.13.[address] [facility] 4.2.7.2.686 [place] as [id number] [facility] 019 [address] 2022-03-03 2022-03-03 Emergency X KIMMY, [facility] ERT [id number] Univers 09:55:00 15:06:00 SARA ity [facility] 2022-03-03 2022-03-03 Emergency X KIMMY, [facility] ERT [id number] Univers 09:55:00 15:06:00 SARA ity [facility] 2022-03-03 2022-03-03 Emergency X KIMMY, [facility] ERT [id number] Univers 09:55:00 15:06:00 SARA ity [facility] 2022-03-03 2022-03-03 Emergency X KIMMY, [facility] ERT [id number] Univers 09:55:00 15:06:00 SARA ity [facility] 2022-03-03 2022-03-03 Emergency X KMIMY, [facility] ERT [id number] Univers 09:55:00 15:06:00 SARA ity [facility] 2022-03-03 2022-03-03 Emergency Kimmy, TRAUMA 1.2.673.098 [id number] Univers 09:55:00 15:06:00 [facility] CENTER 350.1.13.10 it[place] [id number] [facility] 014 Branch 2022-03-03 2022-03-03 Surgery ROMY Tovar 1.2.840.114 [id number] Univers 07:00:00 09:53:00 Erasmo MATHIS 350.1.13.10 ity of HOSPITAL 4.2.7.2.686 [place] as [id number] [facility] [address] 2022-03-03 2022-03-03 Surgery ROMY Tovar 1.2.840.114 [id number] Univers 07:00:00 09:53:00 Erasmo MATHIS 350.1.13.[address] [facility] 4.2.7.2.686 [place] as [id number] [facility] 103 [address] 2022-03-03 2022-03-03 Outpatient R GUY [facility] PAN [id number] Univers 05:10:00 09:50:00 ERASMO ity [facility] 2022-03-03 2022-03-03 [facility] ROMY Tovar 1.2.840.114 [id number] Univers 05:10:00 09:50:00 Encounter Erasmo MATHIS 350.1.13.10 ity of HOSPITAL 4.2.7.2.686 [place] as [id number] [facility] 104 [address] 2022-02-21 2022-02-21 Outpatient R [facility] GIE [id number] Univers 10:01:00 16:09:00 CHRISTOS ity of [facility] 2022-02-21 2022-02-21 Hospital [facility] 1.2.840.114 [id number] Univers 10:01:00 16:09:00 Encounter Christos ICAL 350.1.13.10 ity of SCIENCES 4.2.7.2.686 [place] as BLDG [id number] [facility] 020 Branch 2022-02-21 2022-02-21 Surgery [facility] 1.2.840.114 [id number] Univers 12:37:00 14:37:00 Christos ICAL 350.1.13.10 it y of SCIENCES 4.2.7.2.686 May[place] as BLDG [id number] [facility] 020 Branch 2022-02-21 2022-02-21 Orders Doctor YOLANDA 1.2.840.114 [id number] Univers 00:00:00 00:00:00 Only Unassigned, DELFINA 350.1.13.10 ity of [place] [facility] 4.2.7.2.686 Mayur as [id number] [facility] 009 Branch 2022-01-13 2022-01-13 Patient Denisha, [facility] 1.2.840.114 [id number] Univers 00:00:00 00:00:00 Secure Msg Christos Y HEALTH 350.1.13.10 ity of CL[place]ICS [place] [id number] [facility] 071 Branch 2021-12-29 2021-12-29 Case Ernesto [facility] 1.2.840.114 [id number] Univers 00:00:00 00:00:00 Management Arlette Y HEALTH 350.1.13.10 ity of CL[place]ICS [place] [id number] [facility] 071 [address] 2021-12-29 2021-12-29 Telephone Guy, [facility] 1.2.840.114 [id number] Univers 00:00:00 00:00:00 Erasmo Y HEALTH 350.1.13.10 ity of CL[place]ICS [place] [id number] [facility] 188 [address] 2021-12-29 2021-12-29 Telephone Denisha, [facility] 1.2.840.114 [id number] Univers 00:00:00 00:00:00 Christos Y HEALTH 350.1.13.10 i ty of CLINICS [place] [id number] [facility] 071 [address] 2021-12-28 2021-12-28 Office Denisha, [facility] 1.2.840.114 [id number] Univers 15:00:00 15:30:00 Visit Christos Y HEALTH 350.1.13.10 i ty of CL[place]ICS [place] [id number] [facility] 071 [address] 2021-12-28 2021-12-28 Outpatient R PARUPUDI, [facility] [id number] Univers 15:00:00 15:00:00 CHRISTOS ity [facility] 2021-12-28 2021-12-28 Outpatient R PARUPUDI, [facility] [id number] Univers 15:00:00 15:00:00 CHRISTOS ity [facility] 2021-12-28 2021-12-28 Outpatient R PARUPUDI, [facility] [id number] Univers 15:00:00 15:00:00 CHRISTOS ity [facility] 2021-12-28 2021-12-28 Laboratory Only, [facility] Test [facility] 1.2.84 0.114 [id number] Univers 14:15:00 14:30:00 Only Chris Zee Y HEALTH 350.1.13.10 ity of CL[place] [id number] [facility] 316 [address] 2021-12-28 2021-12-28 Patient Doctor [facility] 1.2.803.666 [id number] Univers 00:00:00 00:00:00 Secure Msg Unassigned, ICAL 350.1.13.10 ity of [place] SCIENCES 4.2.7.2.686 [place] as BLDG [id number] [facility] [address] [place] 2021-12-28 2021-12-28 Orders Doctor YOLANDA 1.2.840.114 [id number] Univers 00:00:00 00:00:00 Only Unassigned, DELFINA 350.1.13.[address] [facility] 4.2.7.2.686 [place] as [id number] [facility] 009 [address] 2021-12-23 2021-12-23 Outpatient R [facility] [id number] Univers 12:30:00 12:30:00 ity of [facility] 2021-12-23 2021-12-23 Outpatient R [facility] [id number] Univers 12:30:00 12:30:00 ity of [facility] 2021-12-21 2021-12-21 Patient Doctor [facility] 1.2.115.897 [id number] Univers 00:00:00 00:00:00 Secure Msg Unassigned, ICAL 350.1.13.10 ity of [place] SCIENCES 4.2.7.2.686 May[place] as BLDG [id number] [facility] [address] [place] 2021-12-21 2021-12-21 Case YOLANDA Orozco 1.2.840.114 [id number] Univers 00:00:00 00:00:00 Management Arlette MATHIS 350.1.13.[address] [facility] 4.2.7.2.686 [place] as [id number] [facility] 046 [address] 2021-12-20 2021-12-20 Office Guy [facility] 1.2.534.711 [id number] Univers 14:15:00 14:30:00 Visit [facility] 350.1.13.10 ity of CL[place] [id number] [facility] 188 [address] 2021-12-20 2021-12-20 Office Guy [facility] 1.2.439.889 [id number] Univers 14:15:00 14:30:00 Visit Erasmo [facility] 350.1.13.10 ity of CLINICS 4[place] [id number] [facility] [address] 2021-12-20 2021-12-20 Outpatient Risa TOVAR [facility] [id number] Univers 14:15:00 14:15:00 [facility] 2021-12-20 2021-12-20 Outpatient Risa TOVAR [facility] [id number] Univers 14:15:00 14:15:00 [facility] 2021-12-20 2021-12-20 Orders Doctor YOLANDA 1.2.840.114 [id number] Univers 00:00:00 00:00:00 Only Unassigned, DELFINA 350.1.13.[address] [facility] 4.2.7.2.686 [place] as [id number] [facility] [address] [place] 2021-12-10 2021-12-10 Case YOLANDA Marrero 1.2.840.114 [id number] Univers 00:00:00 00:00:00 Management Andrew MATHIS 350.1.13.[address] [facility] 4.2.7.2.686 [place] as [id number] [address] 2021-12-10 2021-12-10 Patient Janes [facility] 1.2.840.114 [id number] Univers 00:00:00 00:00:00 Secure Msg Andrew SPECIALTY 350.1.13.10 ity [place] C[place] AT [id number] [place] sandra MONROY [address] [place] [address] 2021-12-08 2021-12-08 Multidisci Pallav, [facility] 1.2.840.114 [id number] Univers 00:00:00 00:00:00 plinary Rascon Y HEALTH 350.1.13.10 i ty of Conference CLINICS 4.2.7.2.686 [place] [id number] [place] [address] [place] 2021-12-01 2021-12-01 Telephone Paula [facility] 1.2.840.114 [id number] Univers 00:00:00 00:00:00 Sha PRIMARY 350.1.13.10 it y of C[place].2.[place] [id number] [place] dical [address] 2021-11-25 2021-11-25 Telephone YOLANDA Marrero 1.2.872.297 [id number] Univers 00:00:00 00:00:00 Andrew DELFINA 350.1.13.10 it y of HOSPITAL 4.2.7.2.686 [place] as [id number] [facility] 009 [address] 2021-11-23 2021-11-23 Transition ANUP Delgado 1.2.840.114 [id number] Univers 00:00:00 00:00:00 of Care Emily CROWY 350.1.13.10 i ty of [place] [phone] [facility] [address] 2021-11-18 2021-11-22 Inpatient U [facility] LEANNE [id number] Univers 07:42:00 18:00:00 JOHNATHAN ity [facility] 2021-11-18 2021-11-22 Inpatient U [facility] [id number] Univers 07:42:00 18:00:00 JOHNATHAN ity [facility] 2021-11-18 2021-11-22 [facility] ROMY Richards 1.2.840.114 [id number] Univers 07:42:00 18:00:00 Encounter Johnathan MATHIS 350.1.13.10 ity of [facility] 4.2.7.2.686 [place] [id number] [facility] 097 Branch 2021-11-19 2021-11-19 Surgery Pall, [facility] 1.2.794.915 [id number] Univers 12:46:00 14:25:00 Rascon ICAL 350.1.13.10 it y of SCIENCES 4.2.7.2.686 [place] BLDG [phone] [facility] 020 Branch 2021-11-19 2021-11-19 Anesthesia Gian, 1.2.840.2 [id number] Univers 11:29:00 12:31:00 Event Pantera 25089.1.1 ity of 3.104.2.7 [place] .3.294837 Medica l .8 Branch 2021-11-19 2021-11-19 Travel 1.2.840.1 1.2.221.742 [id number] Univers 00:00:00 00:00:00 67496.1.1 350.1.13.10 ity of 3.104.2.7 4.[place]7.3.698 [place] .3.275108 084.8 Medica l .8 Branch 2021-11-18 2021-11-18 Travel 1.2.840.1 1.2.460.399 [id number] Univers 00:00:00 00:00:00 20733.1.1 350.1.13.10 ity of 3.104.2.7 [place].3.698 [place] .3.508260 084.8 Medica l .8 [place] 2020-07-31 2020-07-31 Orders Doctor YOLANDA 1.2.840.114 [id number] Univers 00:00:00 00:00:00 Only Unassigned, DELFINA 350.1.13.10 ity of [facility] 4.2.7.2.686 [place] [phone] [address] Results Test Description Test Time Test Comments Results Result Comments Source Adrenocorticotropic Hormone (ACTH) 0 Min (prior to cos yntropin 2022-04-16 12:47:11 injection) Test Item Value Reference Range Interpretation Comme nts ACTH (test code = 2141-0) <1.5 7.2-63.3 L IN TERPRETIVE INFORMATION: Adrenocorticotr opic Hormone Reference inter jere based on samples collected betwe en 7 a.m. and 10 a.m. ?No refere nce intervals established for p.m. collections. ?Pediatric refe rence values are the same as adults (Acta Paediatr Scand 1981;70:341-345 ). ?This assay measures intact ACTH 1-39; some types of synthe tic ACTH and ACTH fragments are n ot detected by this assay.Performed By: [facility] [place] [id number] Director: Indira Loja MD, PhD Lab Interpretation (test code Abnormal = 01292-0) [facility] (NA, K, CL, CO2, GLUCOSE, BUN, CREATININE, CA)2022-04-15 22:19:04 Test Item Value Reference Range Interpretation Comments NA (test code = 129 mmol/L 135-145 L 6610077931) K (test code = 4.6 mmol/L 3.5-5 5668747900) CL (test code = 102 mmol/L 98-108 1285819812) CO2 TOTAL (test code = 22 mmol/L 23-31 L 5777887914) AGAP (test code = 2-16 7771106223) BUN (test code = 14 mg/dL 7-23 4916114027) GLUCOSE (test code = 91 mg/dL 70-110 7591743697) CREATININE (test code = 0.95 mg/dL 0.5-1.04 1042661005) CALCIUM (test code = 7.6 mg/dL 8.6-10.6 L 8474218845) eGFR (test code = mL/min/1.73m2 0350543110) JUSTIN (test code = JUSTIN) Association of Glomerular Filtration Rate (GFR) and Staging of Kidney Disease* + --+ --+ ------+| GFR (mL/min/1.73 m2) ?| With Kidney Damage ?| ?Without Kidney Damage+ --------+ --------+ +| ?>90 ?| ?Stage one ?| ? Normal ?+ ---+ ---+ -------+| ?60-89 ?| ?Stage two ?| ? Decreased GFR ? + --+ --+ ------+| ?30-59 ?| ?Stage three ?| ? Stage three ? + --+ --+ ------+| ?15-29 ?| ?Stage four ? | ? Stage four ?+ ---+ ---+ -------+| ?<15 (or dialysis) ? ?| ?Stage five ? | ? Stage five ?+ ---+ ---+ -------+ *Each stage assumes the associated GFR level has been in effect for at least three months. ?Stages 1 to 5, with or without kidney disease, indicate chronic kidney disease. Notes: Determination of stages one and two (with eGFR >59mL/min/1.73 m2) requires estimation of kidney damage for at least three months as defined by structural or functional abnormalities of the kidney, manifested by either:Pathological abnormalities or Markers of kidney damage (including abnormalities in the composition of the blood or urine or abnormalities in imaging tests). Lab Interpretation Abnormal (test code = 77942-0) [facility] (post cosyntropin injection)2022-04-15 18:44:21 Test Item Value Reference Range Interpretation Comments TERESA 60 (test code 24.0 ug/dL = 4043190338) JUSTIN (test code = Normal peak serum cortisol JUSTIN) is greater than 20 ug/dL 30-60 minutes after 25 units of Cosyntropin IV. Biotin has been reported to cause a positive bias, interpret results relative to patient's use of biotin. [facility] METABOLIC PANEL (NA, K, CL, CO2, GLUCOSE, BUN, CREATININE, CA)2022-04-15 11:43:32 Test Item Value Reference Range Interpretation Comments NA (test code = 129 mmol/L 135-145 L 7866340205) K (test code = 3.9 mmol/L 3.5-5 9781568746) CL (test code = 104 mmol/L 98-108 1842457580) CO2 TOTAL (test code = 22 mmol/L 23-31 L 8416387629) AGAP (test code = 2-16 1677013323) BUN (test code = 13 mg/dL 7-23 6812977090) GLUCOSE (test code = 81 mg/dL 70-110 1181968909) CREATININE (test code = 0.99 mg/dL 0.5-1.04 4537269132) CALCIUM (test code = 7.9 mg/dL 8.6-10.6 L 3232842570) eGFR (test code = mL/min/1.73m2 5355239894) JUSTIN (test code = JUSTIN) Association of Glomerular Filtration Rate (GFR) and Staging of Kidney Disease* + --+ --+ ------+| GFR (mL/min/1.73 m2) ?| With Kidney Damage ?| ?Without Kidney Damage+ --------+ --------+ +| ?>90 ?| ?Stage one ?| ? Normal ?+ ---+ ---+ -------+| ?60-89 ?| ?Stage two ?| ? Decreased GFR ? + --+ --+ ------+| ?30-59 ?| ?Stage three ?| ? Stage three ? + --+ --+ ------+| ?15-29 ?| ?Stage four ? | ? Stage four ?+ ---+ ---+ -------+| ?<15 (or dialysis) ? ?| ?Stage five ? | ? Stage five ?+ ---+ ---+ -------+ *Each stage assumes the associated GFR level has been in effect for at least three months. ?Stages 1 to 5, with or without kidney disease, indicate chronic kidney disease. Notes: Determination of stages one and two (with eGFR >59mL/min/1.73 m2) requires estimation of kidney damage for at least three months as defined by structural or functional abnormalities of the kidney, manifested by either:Pathological abnormalities or Markers of kidney damage (including abnormalities in the composition of the blood or urine or abnormalities in imaging tests). Lab Interpretation Abnormal (test code = 92379-4) [facility] 11:43:32 Test Item Value Reference Range Interpretation Comments MAGNESIUM (test code = 7475357920) 2.0 mg/dL 1.7-2.4 Lab Interpretation (test code = Normal 92860-0) [facility] WITH [id number] 11:11:28 Test Item Value Reference Range Interpretation Comments WBC (test code = See_Comment [Automated 5790-2) message] The sy stem which generated this result transmitted reference range : 4.30 - 11.10 10*3/?L. The reference range was not used to interpret this result as normal/abnormal . RBC (test code = See_Comment L [Automated 729-8) message] The sy stem which generated this result transmitted reference range : 3.93 - 5.25 10*6/?L. The reference range was not used to interpret this result as normal/abnormal . HGB (test code = 8.4 g/dL 11.6-15 L 718-7) HCT (test code = 24.2 % 35.7-45.2 L 4544-3) MCV (test code = 86.4 fL 80.6-95.5 787-2) MCH (test code = 30.0 pg 25.9-32.8 785-6) MCHC (test code = 34.7 g/dL 31.6-35.1 786-4) RDW-SD (test code = 51.8 fL 39-49.9 H 63240-5) RDW-CV (test code = 16.3 % 12-15.5 H 788-0) PLT (test code = See_Comment [Automated 777-3) message] The sy stem which generated this result transmitted reference range : 166 - 358 10*3/ ?L. The reference r jessica was not used to interpret this result as normal/abnormal . MPV (test code = 9.3 fL 9.5-12.9 L 13588-7) NRBC/100 WBC (test See_Comment [Automat ed code = 7110180263) message] The system which generated this result transmitted reference range : 0.0 - 10.0 /100 WBCs. The refer ence range was not u sed to interpret th is result as normal/abnormal . NRBC x10^3 (test code See_Comment [Auto mated = 8211249657) message] The s ystem which generated this result transmitted reference range : 10*3/?L. The reference range was not used to interpret this result as normal/abnormal . GRAN MAT (NEUT) % 70.0 % (test code = 770-8) IMM GRAN % (test code 1.50 % = 3999852427) LYMPH % (test code = 18.7 % 736-9) MONO % (test code = 8.1 % 5905-5) EOS % (test code = 1.5 % 713-8) BASO % (test code = 0.2 % 706-2) GRAN MAT x10^3(ANC) 7.30 10*3/uL 1.88-7.09 H (test code = 0463950904) IMM GRAN x10^3 (test 0.16 10*3/uL 0-0.06 H code = 6885439390) LYMPH x10^3 (test code 1.95 10*3/uL 1.32-3.29 = 731-0) MONO x10^3 (test code 0.84 10*3/uL 0.33-0.92 = 742-7) EOS x10^3 (test code = 0.16 10*3/uL 0.03-0.39 711-2) BASO x10^3 (test code 0.01-0.07 = 704-7) Lab Interpretation Abnormal (test code = 50603-2) [facility] [id number] 21:12:37 Test Item Value Reference Range Interpretation Comments Case Report (test code Surgical Pathology ? ? = [id number]) ?Case: [id number] ? Authorizing Provider: ?Erasmo Tovar MD ? ? ? Collected: ? 04/08/2022 0944 ?Ordering Location: ? ? [facility] OR ? Received: ?04/08/2022 1308 ? Department ? Pathologist: ? Anuradha Wasserman MD ? Specimen: ? ?SOFT TISSUE, OTHER, PERIAMPULLARY MASS WITH STENT ? Final Diagnosis (test y5fqcHGdRIWqx7ldADXekPK code = 8128636723) uZzEwMzNcZnRuYmpcdWMxIH tccnRmMVxhbnNpXGRlZmxhb nngLIHhVFP9hcJvMSLdATE4 RNY6ZkZlAONuNiCbQPGfBPY su3mdo1QnoNTnyMOqIDvsrG YeetWmjr37bYO8wH91KK7zC ADfHeI8ONTdfxP7Ilv8RGMf SGBanRRrW234w8jqd4nhfjD drEE2tIgpJLEjshirJkY4KL glVMWmsbziNHe4ZCihOIMny BA4VHWkiQYdA5MdAKLyBX7w iif9WFY0VCcxUUKhRkP2LDT olRPyQDGaoLtoDKcuo184BJ H1TjZaHEKqfgDnmOxyxB0sM eHqZZulSWPbMY6zVWJVRCTW UFVMTEFSWSBNQVNTIFdJVEg nA2QSMbHuYI2ZF4MqUWzESZ HQO761PRQefkKwEAWxNBOEP QAGKG0IQFcPX2WGWRLZEM6X TUEgXHBhciAgICAgLSBSRVN PZ1YSW19gHNMOF8sXVK5LA5 QODRIXIYCCJwIXMEQOI21PU HBhciAgICAgLSBTVEVOVCBJ CSPEVGjDDKIFJXqRDy1SZoH EQTCRQK7JVIaVYzevoBQcMP WbncxfzgWlIAleZof8OODsC UoaAL8xLTYNDBQcNU4yHw4g TRExHDWlRpK2LZHLOMDlpkz tanYfBCWtnr47TCG7HxYtb0 K3QVUhAkPzPHRhJX6rtFzbZ JGbBW2dWEIiP3odiK0bcxt5 IeDcVVDoPcD3NUWmreQ8Kde 3KSVbCCkgo4rrt5VfV8KtfK DnxLd0b4tbRPFdTnK1zIZeK DemG1hkyfSqdVYzILCqZMa5 hZitQdYmJSKhf0pgccOkJdW rXXKaSAKlWNTspTwxvtl7uK 13HHWaoF5swXPyGArxtuXnV fH7JRssXSWqJaQ3GWAwfEZh TYZlA8rsUUByOYyhKPYoMKs frAIlSRV7hJeir8G1pZIneZ WugIloAsZgAtQwLLSMw6EpK Je9nJqqA3IvCPAiHxY4xDPu DDVjXFnyXOXvJFFtcbN9mW0 0YLtegzH3hOUgh3Ssn59bg8 59nU8ljBUvAXT7ZDOuDQLag RVuZMDvRCC4GNOksJUmR8fa KLYrGQ2oqdvuLFlpBKhdSGY koNV0ZITuoSBxO5OwTVBjVO kzAAIruso0LxVnDf6tcLJuh NhpKQjdy7bqv2kvdNJqDkl7 FEIfRxQsLnctTKsmq3Otd7q uOSZwjm5cIKM2bPArqEsnf5 V9aGBhZHZhyFKgqxRaPBWoK mM7KKcjQM3hmt79CFFyQBV5 uz8hrAIcxSvtqcYcvGVeJLl uI2EyMTUko262XCIjW4CgRE Rva1I6abBeMlInIPFphIT2y dM4QZNtEVt6dDZdheT9ykHi gIMiR6vddY0wQDZmGP1bnah ln1deTCszGTlzQHJmzDL3wo M8RHRwdTXeU6MghP9cWPJuQ IpaTGVgcog0YuVaHr9inYHr eTcyMFxzYmtwYWdlXHBnbmN vbnRccGduZGVjXHBsYWluXH BsYWluXGYwXGZzMjRccWxcc ZnseW6eGpCmAeHmTOutOS6v TEWiD7ryqVMbDYEpMDCcH0u lVxOosZ8fjSbwDNuiSrMvUo MyMFxwYXIgSSBoYXZlIHBlc kSwjvUjmWtbjfC5tHT3VUSc UQioATIzHBZrhONtsu0rfIk pJOStWU8wAYLmcjYbLQwypI ijEEowYQU1DAZkbQBbiYJya WFkZSBieSByZXNpZGVudHMs TTOotSktl8Uxp7RolLG5jX2 fm9gds6HoMLBmtOX7ZU48kk X8cQ9yLWXkER3qFDPpLE8sw PFscSEuWJIhx15dkBnnenVf ZXBvcnQuXHBsYWluXGYyXGZ zMjhcbGFuZzEwMzNcaGljaF qzSkhjOhTjBHKpXXovX3auX iVrEdKsIOdpRII8xZzimxPh FIzlj5IqP3JwMtJsOKvvusY lTHOuTuaxytpnARUzGCN3sq GeADKiUHaxFPIpKWqzBp1me ETcyDujHzKnEKStf0xviaTR DHxiNpMxG406EVIkZAxso8q rw1QjRVUenQSdu4W4GSJMmj ikuJt6wSpyM34gw7F3XpyvM 3beRCBrLDKdK9DfJG6tDXOa Bsj1NEK2ZAR0CMJdQETdH8T lAF3iEBWtdCIvZYm3b1hmbQ ihWLYxYRH3r7ykOXfwwnW3Y G3cdy5ngYc5x4nefjCeDEBv LVWfePVIIVZyY5CkdTonKf9 oqEe8yPdcVpmoYTS2Rol3DN 6pin00iky7sIpiXJXlvhtvJ sS5XKlvLDCwlktwSHx4ICil ZQZqdDB4LQUdpSUlJ4BiZLW eUP4dwil8OIO1SOsmHKCcMa E6LZBbdWYvGCJejFioLYrfr 965MMP3ImLtCR9zN8Kas3U9 pJ4nuEHfKDWixNVhByPxLBB mge2yxVVkFBkoi8NqF68kbR F3KMfcx1yhIU7rWxN0mjByA Jzdp9fgdB9mTxY1YNykVD4a st97YIYqXYA0lo8zgMBohTb htlKwbKCsOEniR0TpYLZux1 29UTZsA5PcTFUmp5L3cwUlG bUjXYZznJF3ywP2UJNjKDu3 sMKupnK6huSdvVZoM0yidY9 gHKQyRP9evindf6tvCUvhBA liTURcjDM0nmZ1GTPxwEJzG 4HexJ1nJIApOEzkVPYwhns6 ZlEzOp3ntFVroJctOHlhXbe wYWdlXHBnbmNvbnRccGduZG VjXHBsYWluXHBsYWluXGYwX AEeVuRseAAwNNyjy6ZxxoBz kWrwSBTxOYv3xuKzhsyzjQk 6bQJewUklGNRnsNpjlN6fHh CoOmBqNUkyPU9lQTIqJ3jnh AKkVIFcYPZkD1aqVpFeuG5l aFxmMVxjZjJcZnMyMFxsdHJ jaFxwYXIgSSBoYXZlIHBlcn NluuYmgPeekvJ1pLZ3XRExM HiuTKGzOHZpgBHhnk7yqPqj JUOmHZ2nSLXxnhItBLjcuGp cKHsnIXH1QSBrnCVtyDYmzI FkZSBieSByZXNpZGVudHMsI ZPnbJwpv1Qvc3GqtLK0dY2d a5pyv0DlCZBglQP9HD22glB 6lS9aANMtRR4fCULtUM0naJ HvdOApISSib31xcHdlrtMeP XBvcnQuXHBsYWluXGYxXGZz MjBcbGFuZzEwMzNcaGljaFx fRYhmVeXcDPNqGTboH4shFu XnG8KxPPKgMyRxrHKiKBJhi nktBFQem8ZmNyTol5oxCMiy e4bvuLb8ITfloUCokztyHVe odfQ6UDCvEVefBYViJMFeNF RcbGFuZzEwMzNcaGljaFxmM WxsNwObKYEuFJyiT2naJlHw R6QrNHAzYHGwpIWgQ0ivGDD 8iL5in6ggu9MjwOZmIdDku5 lvbmFsIGNvbXBvbmVudCBwZ OFrn2YsBBSjRWNoGHFIVq4G CLFllOKkJ3j1jDSCJN2hlUV nLYUsOJVhX8JjPeICgwOxm7 X8DLEvaFZiPWOCLPJpsPUwT 1n5hYghFDhtMjq8KmVgkNda pD2yYhRcUzKwLPynWN3hQML tN1tjhJQuJJHhNWWwP3azSw YieK0xfEqtGAquKrFfIoDaZ SarzHBpxRceGRM4dR== Clinical Information Ampullary adenoma (test code = [D13.5] 8553807573) Gross Description q4ngaSRtEDJeoDTCKMJwVGN (test code = wUM8foThbmSp5lWzbGWRfgg [id number]) X9fMSjGIygb0ktCVB4z9dms iANClxkZWZmMVxwYXBlcncx OjN2NMwoBDRlwnlcTYa6CLs jIUEtaEQ7HWNgoUCaF2SuJN UhWA1oqpp3DRI9AGiiUYNxY vD5GJHpCsLjFvjdLFi9NCTr fgO0Qnh9HJTcCVLqwQTdu0V 3BEeqghreLTHqvPDmP314QS iem7IcsYTrEGjpwQDiKZKXX pbnAduwyCoff4LzuGRjCBia YZNxBZSiNGmvjireNXx6DIW dALwxqCAhNQ4okMeyXvukcU tty2ZoyLOzSMxbAIArLAUrZ IivFXItIP1MSvPaXZB4FTo9 GpEwJWp1XXe5UR9LHnSmFZO sWNPeLLpoDUDmNNe1RFnlVY 4WLRE0ETKkMUT0PtSlAKSaK MHvQYi9QHEpGHlwREMjnMPi IFxcZnMgMTAgXFxmbCBcXG5 jfVxwbGFpblxmczIwIFNQRU AYPQPYKMSzdTCzAH4ROWEmA HaoPQDixYJJLFT1ZV8oDVOA ClxsdHJwYXJcbGluMFxyaW4 fDX0XZVj4ueEdHOHeNsObE2 NrF4sqUB6iFVJunuMsUJEtw XZlZCBmcmVzaCBsYWJlbGxl UKX8iLEnZZQmHWGbECAcED2 0XCdCNHMgbmFtZSwgVUggbn KhByNdMSRfTEYnjstuiFK6y AdlxfbekIAndsB8lOKcGLH0 AG62NKoDOVqhRpFfCB2rDGM lgbXzt5HcZT4eONNbo3qyJ2 atMKMtz3LysPI5CQGnaAwwh e8oPBAitY1hfRZcoBRthDLq mpZwVj73FCcyJq24EQbbUE0 5PJTrDIZ1oHYfZGKvVfq4HG WcmXXilYLhBI7fOSAbDHklS Urymeo7fAZvaJLqFqNyI30a hK7uNVdljSU8LTHpQKIbj3I lZEA2hLUmnAvaDRPoCUDqgO 1gza9pJPQzPTKzqYTrpSKcw sQgAL4bmqYjKOU5gOMlqvIq UER9sD7mZN5quwfoidOsblM zfntgLQMncDViQLBbGIV4jC Zgq6WfU7fhFJ7jeDYlo4Zli OShzWrdp5WszQyknhScEEJk IHJldmVhbCBnbGlzdGVuaW5 nGMZcft0ptT5vYEZ7sVMlpS PlFVOhvr0eXWPpHYJaiM9gt rYimtNwos4vYLHpNTCeamOl b4u0oZRhvQlztOQjlT7uQLR hob7qiM3vHR56L09bZL0hQT asr3OrAD6yXQdvELrkvOiqa H9wkgRufPZwQBKzFUBeb3Ts FFDhMHI8wICsaKBiynDhfoQ cpsEdbgRklFFqlpTnu6CsfR UvoEltsLa0QUE7Rr1zdWRoU WAdcrHZRD9VZHGjaFVnJM5a gR7yBAQdTSDlAkxsWNElZXm qgHCcZP3LCvEiqTVoQWSSrQ yjvcP6MXBTLDWcLCVWDIsfc GluZSANClxlcGljTmVzdERv EjLujkS6JPMvcEEbNBY6OF6 pHZHgzefrIAKwMEGlRKY9BL iclO31gOPwDNWqMMLkqSRqt EstuPJlgrHTLlwpbY7xFzDz a6vxcOi5HEHIRagxsJFpjhk zesC2WKGpv4ogfEppl7EejK HcYY1faCzvfC6oHaUvNaZVF n0= Disclaimer (test code w2cvfAWgGRSvx5gwVCSfbNW = [id number]) uZzEwMzNcZnRuYmpcdWMxIH blqmFeBUuxe0GbA1LcBfHnU FxhbnNpXGRlZmxhbmcxMDMz LBQ0dbInCWGxEDchYDXjTMb lIh1qpERzgNvgRrTfNUPjm3 sedoBSRMpsJaJbF440LXGnX Kpvv6jyx5RdIDQslVYfy4P8 EWNNylhhnKb1jZnjH44as2E 6XunyM0ppYCOsUQXiJ5YcNR 3jWAJrOli1AVJ1DQW7LOExV UQfL8ZaLB0mKYEvpAOfCVm4 f9lpjWmhKAJaVUG0l4wxFNb ddsEjBA8tga9xuPa4y8zzcy BtFWDwLDZbiBYVZQQdE1Csh TcqKn3rhPt0mIicMywfKJI6 Gad1OK7tmg58pul9oRwsSCH qznooGhZ2QJchHJHasghtKQ v7APrkNPDsrXY8VRIlePIjH 0OlFZDbZP5kyxc5AUJ5JKof KJFcQeZ7BHCiuWQjMHCrpPw jUVkbv169ZQW1XbWcGK5jQ4 Hfw6K7qK9qlKInSPXpaOIwG bEfEIXtzn6frMAhIJwkz3Pu WHH4cnJ1lWEwpRZbSUOcYO6 2Zjbqr9RyAodoh5UzN97xtT N7ZWhnf7pfVV0wFdQ3lpDzZ Ppzv3fllU9bBnZ7CKxjUD9m RY1cIIRhnI8dzqtySBRhHcL iysdbUQPorHksxbEyXk2zcL mgULH9YJqhJ5qepR8dHcX1U LhrB0hkbB4hNUs0IWtyeIJ6 HSZzdC5tJS9nkiwlt7jmJWc sXKsyVOWqcnV8uyR1NKJpjR RaA0PkmG2mUOQrAI9sjfodo 2ffDHQ3YDisKKPrYWY6FmWv UBXhg6Bsvup7RnEnj3RzyJS oZLbhQ04ek567LCBbvlMwM7 xwbGFpblxwbGFpblxmMFxmc yP7ZRRecxIrs1SqYHFvXGN9 PGjyYPwhoRAdCRTxjKwqh6r fU4ZmcMPgDCYtNAqlJEVdUD ZzMjBcbGFuZzEwMzNcaGlja DjwJFnjKqGwPZSmEXosJ2ed MrVdZ8KxRIXnOfOnqXWkR8t fWBtedlBkEVHvxrDqhWV4IS wlC2q6WNNbmdGijXm1reZxP zZjXMUgXBE4SHjifBWxEBJc p5KrqbeayEYtAa9boUYbNID ubT4fJDCbRGJaPLwcZT2lpD s8FAYNrIWcaBLiUwNUBBVhU P79vuKqYBOEnptin2H5OGze OUPcm4AjvEWqR2fvd5PfSRS yz91mPQ6ee5R8d1pmNYM8LW 9av7LvXNPcyZBexNEeZFMfg 7Pwifzjz2DfVHLjmhLyj1Bd ZCBhbmQgaXRzIHBlcmZvcm1 duwFcIYGxZIWzA8PamfmyzI vnbfXfHYYved6urqSjHAX3T ALUYFAwZCRle7JyuI8zeEQS ZDK8cCGqrk8ykgUAaHEbIOW sid11YKGiHJ0iT3puPGLaXR KpvmVohLQjd1HbEFTtoRT5z SYzER3AYtACw42xYBSiOUYD jcKzDRQdsJwysLW0ajJ5jV9 uIChGREEpLlx+IFRoZSBGRE IbND7wkwIer4JejwIrcPxrU XEocPXyl3DozTFfx4ZszPor u1FatWIxoAXhDR1tUVEwikd hQKJoIVEQPxLVJJNmfvD6n0 VxWNWiLKTfYUJ0pZugjlz5P UNatQ6qOVJoO7fkroofMFiz DBYcu0FcfB5llOAVtZHck9U vuHHupELIaXXqQX5gftZeEC tZFZtJKAL1owOuCWNxz7LeS WohW5qsD94qxCbusIi9lGA2 GMV0nI0bMzf+IFxwYXJccGF yIEFwcHJvcHJpYXRlbHkgcm LyC4CufoIjqP1xwBFtssXeD C1fUK7rL8W3wXJiVAQoyfCr k3pjCGjakhVmXdZeloImJTT lGUspLZSjq7EpPTohHOK3DE lucyBpbmNsdWRpbmcgSCZFL BNPjYTunFDeSVI2ZXremlDp xjEkJX5enD2ggKlsuR0vfTE hfRT2mkibZYRzPUVyjCpiZS GoQA7upITaDXHleeYDuOuoo UCyxF8bH4DpHHEkXSYhry0g TFNhfR8gYBylq2LphgbdRUE qVHXwZPTdgiXglp5xVGRslY GVLG6DVXcmwHGdq7CxcnZoO 2qSTWN6XCYfApSqHjmmDXOg yMLxfCGqCOGuzf63CGLmrH3 ujPweXXLeuB4nyQ5urTtoaZ 9rTnQgYrFuEZfxDT4rSVPqW 1mgmBIiXLTjWBSdR3faIcLs bG2mdQmwVBfdLpIuWzAwCZh lUMG3lF== Embedded Images (test code = 9673933047) [facility] [id number] 12:14:29 Test Item Value Reference Range Interpretation Comments TERESA AM (test code = 24.0 ug/dL 4.5-23 H [id number]) JUSTIN (test code = JUSTIN) Biotin has been reported to cause a positive bias, interpret results relative to patient's use of biotin. Lab Interpretation (test Abnormal code = 11523-9) [facility] 30 [facility] (post cosyntropin injection)2022-04-14 12:11:24 Test Item Value Reference Range Interpretation Comments TERESA 30 (test code 17.9 ug/dL = 6792281222) JUSTIN (test code = Normal peak serum cortisol JUSTIN) is greater than 20 ug/dL 30-60 minutes after 25 units of Cosyntropin IV. Biotin has been reported to cause a positive bias, interpret results relative to patient's use of biotin. [facility] METABOLIC PANEL (NA, K, CL, CO2, GLUCOSE, BUN, CREATININE, CA)2022-04-14 11:41:42 Test Item Value Reference Range Interpretation Comments NA (test code = 124 mmol/L 135-145 L 5009002124) K (test code = 3.9 mmol/L 3.5-5 1235730087) CL (test code = 97 mmol/L 98-108 L 0891103334) CO2 TOTAL (test code = 22 mmol/L 23-31 L 7792998842) AGAP (test code = 2-16 2520775473) BUN (test code = 12 mg/dL 7-23 0817010464) GLUCOSE (test code = 80 mg/dL 70-110 2414847262) CREATININE (test code = 1.03 mg/dL 0.5-1.04 3160012152) CALCIUM (test code = 8.0 mg/dL 8.6-10.6 L 5983077687) eGFR (test code = mL/min/1.73m2 2700653205) JUSTIN (test code = JUSTIN) Association of Glomerular Filtration Rate (GFR) and Staging of Kidney Disease* + --+ --+ ------+| GFR (mL/min/1.73 m2) ?| With Kidney Damage ?| ?Without Kidney Damage+ --------+ --------+ +| ?>90 ?| ?Stage one ?| ? Normal ?+ ---+ ---+ -------+| ?60-89 ?| ?Stage two ?| ? Decreased GFR ? + --+ --+ ------+| ?30-59 ?| ?Stage three ?| ? Stage three ? + --+ --+ ------+| ?15-29 ?| ?Stage four ? | ? Stage four ?+ ---+ ---+ -------+| ?<15 (or dialysis) ? ?| ?Stage five ? | ? Stage five ?+ ---+ ---+ -------+ *Each stage assumes the associated GFR level has been in effect for at least three months. ?Stages 1 to 5, with or without kidney disease, indicate chronic kidney disease. Notes: Determination of stages one and two (with eGFR >59mL/min/1.73 m2) requires estimation of kidney damage for at least three months as defined by structural or functional abnormalities of the kidney, manifested by either:Pathological abnormalities or Markers of kidney damage (including abnormalities in the composition of the blood or urine or abnormalities in imaging tests). Lab Interpretation Abnormal (test code = 33454-3) [facility] Test Item Value Reference Range Interpretation Comments MAGNESIUM (test code = 5480044780) 2.3 mg/dL 1.7-2.4 Lab Interpretation (test code = Normal 64392-7) [facility] [id number] 00:49:42 Test Item Value Reference Range Interpretation Comments TSH (test code = See_Comment Biotin has been [id number]) reported to cau se a negative bias, interpret resul ts relative to davi leyjonelle's use of biotin. [Automated mess age] The system [employer] generated this result transmitted ref erence range: 0.45 - 4 .70 mIU/L. The refe rence range was not u sed to interpret this result as normal/abnor mal. Lab Interpretation (test Normal code = 05061-3) [facility] METABOLIC PANEL (NA, K, CL, CO2, GLUCOSE, BUN, CREATININE, CA)2022-04-14 00:23:11 Test Item Value Reference Range Interpretation Comments NA (test code = 126 mmol/L 135-145 L 3975176439) K (test code = 3.9 mmol/L 3.5-5 1657993905) CL (test code = 96 mmol/L 98-108 L 0226199795) CO2 TOTAL (test code = 22 mmol/L 23-31 L 8248000860) AGAP (test code = 2-16 3292737181) BUN (test code = 11 mg/dL 7-23 7353283539) GLUCOSE (test code = 121 mg/dL 70-110 H 8609487337) CREATININE (test code = 1.16 mg/dL 0.5-1.04 H 6230907553) CALCIUM (test code = 7.9 mg/dL 8.6-10.6 L 0804816162) eGFR (test code = mL/min/1.73m2 2821308296) JUSTIN (test code = JUSTIN) Association of Glomerular Filtration Rate (GFR) and Staging of Kidney Disease* + --+ --+ ------+| GFR (mL/min/1.73 m2) ?| With Kidney Damage ?| ?Without Kidney Damage+ --------+ --------+ +| ?>90 ?| ?Stage one ?| ? Normal ?+ ---+ ---+ -------+| ?60-89 ?| ?Stage two ?| ? Decreased GFR ? + --+ --+ ------+| ?30-59 ?| ?Stage three ?| ? Stage three ? + --+ --+ ------+| ?15-29 ?| ?Stage four ? | ? Stage four ?+ ---+ ---+ -------+| ?<15 (or dialysis) ? ?| ?Stage five ? | ? Stage five ?+ ---+ ---+ -------+ *Each stage assumes the associated GFR level has been in effect for at least three months. ?Stages 1 to 5, with or without kidney disease, indicate chronic kidney disease. Notes: Determination of stages one and two (with eGFR >59mL/min/1.73 m2) requires estimation of kidney damage for at least three months as defined by structural or functional abnormalities of the kidney, manifested by either:Pathological abnormalities or Markers of kidney damage (including abnormalities in the composition of the blood or urine or abnormalities in imaging tests). Lab Interpretation Abnormal (test code = 88939-6) [facility]in [facility] 2022-04-14 00:13:54 Test Item Value Reference Range Interpretation Comments ALBUMIN (test code = 8057716784) 2.5 g/dL 3.5-5 L Lab Interpretation (test code = Abnormal 59305-2) [facility] 0 [facility] (prior to cosyntropin injection)2022-04-14 00:00:54 Test Item Value Reference Range Interpretation Comments TERESA 0 (test code = 21.2 ug/dL 4.5-23 4477183236) JUSTIN (test code = JUSTIN) Biotin has been reported to cause a positive bias, interpret results relative to patient's use of biotin. Lab Interpretation (test Normal code = 38390-4) [facility]22[facility]12 10:08:19 Test Item Value Reference Range Interpretation Comments PHOSPHORUS (test code = 2424561948) 3.7 mg/dL 2.5-5 Lab Interpretation (test code = Normal 71267-6) [facility]12 10:08:19 Test Item Value Reference Range Interpretation Comments MAGNESIUM (test code = 3500915435) 1.9 mg/dL 1.7-2.4 Lab Interpretation (test code = Normal 19937-0) [facility] METABOLIC PANEL (NA, K, CL, CO2, GLUCOSE, BUN, CREATININE, CA)2022-04-13 10:08:18 Test Item Value Reference Range Interpretation Comments NA (test code = 124 mmol/L 135-145 L 7824124733) K (test code = 3.4 mmol/L 3.5-5 L 0498263916) CL (test code = 98 mmol/L 98-108 7194054511) CO2 TOTAL (test code = 22 mmol/L 23-31 L 6771600457) AGAP (test code = 2-16 9136749437) BUN (test code = 9 mg/dL 7-23 1311402169) GLUCOSE (test code = 85 mg/dL 70-110 9259946909) CREATININE (test code = 0.73 mg/dL 0.5-1.04 9076338100) CALCIUM (test code = 7.3 mg/dL 8.6-10.6 L 6193574576) eGFR (test code = mL/min/1.73m2 6878134443) JUSTIN (test code = JUSTIN) Association of Glomerular Filtration Rate (GFR) and Staging of Kidney Disease* + --+ --+ ------+| GFR (mL/min/1.73 m2) ?| With Kidney Damage ?| ?Without Kidney Damage+ --------+ --------+ +| ?>90 ?| ?Stage one ?| ? Normal ?+ ---+ ---+ -------+| ?60-89 ?| ?Stage two ?| ? Decreased GFR ? + --+ --+ ------+| ?30-59 ?| ?Stage three ?| ? Stage three ? + --+ --+ ------+| ?15-29 ?| ?Stage four ? | ? Stage four ?+ ---+ ---+ -------+| ?<15 (or dialysis) ? ?| ?Stage five ? | ? Stage five ?+ ---+ ---+ -------+ *Each stage assumes the associated GFR level has been in effect for at least three months. ?Stages 1 to 5, with or without kidney disease, indicate chronic kidney disease. Notes: Determination of stages one and two (with eGFR >59mL/min/1.73 m2) requires estimation of kidney damage for at least three months as defined by structural or functional abnormalities of the kidney, manifested by either:Pathological abnormalities or Markers of kidney damage (including abnormalities in the composition of the blood or urine or abnormalities in imaging tests). Lab Interpretation Abnormal (test code = 87418-9) [facility] WITH [id number] 09:57:37 Test Item Value Reference Range Interpretation Comments WBC (test code = See_Comment [Automated 6690-2) message] The sy stem which generated this result transmitted reference range : 4.30 - 11.10 10*3/?L. The reference range was not used to interpret this result as normal/abnormal . RBC (test code = See_Comment L [Automated 789-8) message] The sy stem which generated this result transmitted reference range : 3.93 - 5.25 10*6/?L. The reference range was not used to interpret this result as normal/abnormal . HGB (test code = 9.2 g/dL 11.6-15 L 718-7) HCT (test code = 26.5 % 35.7-45.2 L 4544-3) MCV (test code = 85.8 fL 80.6-95.5 787-2) MCH (test code = 29.8 pg 25.9-32.8 785-6) MCHC (test code = 34.7 g/dL 31.6-35.1 786-4) RDW-SD (test code = 50.5 fL 39-49.9 H 96518-6) RDW-CV (test code = 16.2 % 12-15.5 H 788-0) PLT (test code = See_Comment [Automated 777-3) message] The sy stem which generated this result transmitted reference range : 166 - 358 10*3/ ?L. The reference r jessica was not used to interpret this result as normal/abnormal . MPV (test code = 8.9 fL 9.5-12.9 L 45652-9) NRBC/100 WBC (test See_Comment [Automat ed code = 7060340260) message] The system which generated this result transmitted reference range : 0.0 - 10.0 /100 WBCs. The refer ence range was not u sed to interpret th is result as normal/abnormal . NRBC x10^3 (test code See_Comment [Auto mated = 3338587868) message] The s ystem which generated this result transmitted reference range : 10*3/?L. The reference range was not used to interpret this result as normal/abnormal . GRAN MAT (NEUT) % 67.2 % (test code = 770-8) IMM GRAN % (test code 0.50 % = 2660308994) LYMPH % (test code = 17.9 % 736-9) MONO % (test code = 13.2 % 5905-5) EOS % (test code = 1.0 % 713-8) BASO % (test code = 0.2 % 706-2) GRAN MAT x10^3(ANC) 5.45 10*3/uL 1.88-7.09 (test code = 4697880663) IMM GRAN x10^3 (test 0.04 10*3/uL 0-0.06 code = 5798489641) LYMPH x10^3 (test code 1.45 10*3/uL 1.32-3.29 = 731-0) MONO x10^3 (test code 1.07 10*3/uL 0.33-0.92 H = 742-7) EOS x10^3 (test code = 0.08 10*3/uL 0.03-0.39 711-2) BASO x10^3 (test code 0.01-0.07 = 704-7) Lab Interpretation Abnormal (test code = 95344-4) [facility] Test Item Value Reference Range Interpretation Comments PHOSPHORUS (test code = 3936037756) 2.2 mg/dL 2.5-5 L Lab Interpretation (test code = Abnormal 42961-0) [facility] 10:[facility]:53 Test Item Value Reference Range Interpretation Comments MAGNESIUM (test code = 9329714020) 1.6 mg/dL 1.7-2.4 L Lab Interpretation (test code = Abnormal 03939-5) [facility] (NA, K, CL, CO2, GLUCOSE, BUN, CREATININE, CA)2022-04-12 10:31:53 Test Item Value Reference Range Interpretation Comments NA (test code = 127 mmol/L 135-145 L 2078494384) K (test code = 3.6 mmol/L 3.5-5 0006563584) CL (test code = 99 mmol/L 98-108 2814889208) CO2 TOTAL (test code = 23 mmol/L 23-31 0355687671) AGAP (test code = 2-16 6889898904) BUN (test code = 5 mg/dL 7-23 L 1380456340) GLUCOSE (test code = 125 mg/dL 70-110 H 5282078327) CREATININE (test code = 0.54 mg/dL 0.5-1.04 3747102923) CALCIUM (test code = 7.1 mg/dL 8.6-10.6 L 9892289621) eGFR (test code = mL/min/1.73m2 5640647562) JUSTIN (test code = JUSTIN) Association of Glomerular Filtration Rate (GFR) and Staging of Kidney Disease* + --+ --+ ------+| GFR (mL/min/1.73 m2) ?| With Kidney Damage ?| ?Without Kidney Damage+ --------+ --------+ +| ?>90 ?| ?Stage one ?| ? Normal ?+ ---+ ---+ -------+| ?60-89 ?| ?Stage two ?| ? Decreased GFR ? + --+ --+ ------+| ?30-59 ?| ?Stage three ?| ? Stage three ? + --+ --+ ------+| ?15-29 ?| ?Stage four ? | ? Stage four ?+ ---+ ---+ -------+| ?<15 (or dialysis) ? ?| ?Stage five ? | ? Stage five ?+ ---+ ---+ -------+ *Each stage assumes the associated GFR level has been in effect for at least three months. ?Stages 1 to 5, with or without kidney disease, indicate chronic kidney disease. Notes: Determination of stages one and two (with eGFR >59mL/min/1.73 m2) requires estimation of kidney damage for at least three months as defined by structural or functional abnormalities of the kidney, manifested by either:Pathological abnormalities or Markers of kidney damage (including abnormalities in the composition of the blood or urine or abnormalities in imaging tests). Lab Interpretation Abnormal (test code = 30815-1) [id number] (ALB,T.PRO,BILI T,BU/BC,ALT,AST,ALK PHOS)2022-04-12 10:31:53 Test Item Value Reference Range Interpretation Comments TOTAL BILI (test code = 2321522441) 0.7 mg/dL 0.1-1.1 BILI UNCON (test code = 0756548873) 0.5 mg/dL 0.1-1.1 BILI CONJ (test code = 0253419416) 0.0 mg/dL 0-0.3 T PROTEIN (test code = 1293762166) 5.4 g/dL 6.3-8.2 L ALBUMIN (test code = 2705372294) 2.5 g/dL 3.5-5 L ALK PHOS (test code = 3719624941) 82 U/L 34-122 ALTv (test code = 1742-6) 14 U/L 5-35 AST(SGOT) (test code = 8901045783) 24 U/L 13-40 Lab Interpretation (test code = Abnormal 41087-4) [facility] [id number] 10:06:12 Test Item Value Reference Range Interpretation Comments WBC (test code = See_Comment H [Automated 6690-2) message] The sy stem which generated this result transmitted reference range : 4.30 - 11.10 10*3/?L. The reference range was not used to interpret this result as normal/abnormal . RBC (test code = See_Comment L [Automated 969-8) message] The sy stem which generated this result transmitted reference range : 3.93 - 5.25 10*6/?L. The reference range was not used to interpret this result as normal/abnormal . HGB (test code = 10.3 g/dL 11.6-15 L 718-7) HCT (test code = 30.0 % 35.7-45.2 L 4544-3) MCV (test code = 87.0 fL 80.6-95.5 787-2) MCH (test code = 29.9 pg 25.9-32.8 785-6) MCHC (test code = 34.3 g/dL 31.6-35.1 786-4) RDW-SD (test code = 52.7 fL 39-49.9 H 18202-9) RDW-CV (test code = 16.4 % 12-15.5 H 788-0) PLT (test code = See_Comment [Automated 777-3) message] The sy stem which generated this result transmitted reference range : 166 - 358 10*3/ ?L. The reference r jessica was not used to interpret this result as normal/abnormal . MPV (test code = 9.1 fL 9.5-12.9 L 08416-3) NRBC/100 WBC (test See_Comment [Automat ed code = 1909964476) message] The system which generated this result transmitted reference range : 0.0 - 10.0 /100 WBCs. The refer ence range was not u sed to interpret th is result as normal/abnormal . NRBC x10^3 (test code See_Comment [Auto mated = 7937035785) message] The s ystem which generated this result transmitted reference range : 10*3/?L. The reference range was not used to interpret this result as normal/abnormal . GRAN MAT (NEUT) % 75.9 % (test code = 770-8) IMM GRAN % (test code 0.80 % = 9394195375) LYMPH % (test code = 12.9 % 736-9) MONO % (test code = 9.5 % 5905-5) EOS % (test code = 0.6 % 713-8) BASO % (test code = 0.3 % 706-2) GRAN MAT x10^3(ANC) 9.47 10*3/uL 1.88-7.09 H (test code = 1209603684) IMM GRAN x10^3 (test 0.10 10*3/uL 0-0.06 H code = 2115430919) LYMPH x10^3 (test code 1.61 10*3/uL 1.32-3.29 = 731-0) MONO x10^3 (test code 1.18 10*3/uL 0.33-0.92 H = 742-7) EOS x10^3 (test code = 0.08 10*3/uL 0.03-0.39 711-2) BASO x10^3 (test code 0.04 10*3/uL 0.01-0.07 = 704-7) Lab Interpretation Abnormal (test code = 79570-9) [facility] METABOLIC PANEL (NA, K, CL, CO2, GLUCOSE, BUN, CREATININE, CA)2022-04-11 08:52:09 Test Item Value Reference Range Interpretation Comments NA (test code = 130 mmol/L 135-145 L 0071182583) K (test code = 3.5 mmol/L 3.5-5 6559186512) CL (test code = 103 mmol/L 98-108 0269587836) CO2 TOTAL (test code = 24 mmol/L 23-31 6306909636) AGAP (test code = 2-16 7969510654) BUN (test code = 6 mg/dL 7-23 L 2930794056) GLUCOSE (test code = 100 mg/dL 70-110 1000636854) CREATININE (test code = 0.62 mg/dL 0.5-1.04 3405058134) CALCIUM (test code = 7.6 mg/dL 8.6-10.6 L 3168095030) eGFR (test code = mL/min/1.73m2 4839319942) JUSTIN (test code = JUSTIN) Association of Glomerular Filtration Rate (GFR) and Staging of Kidney Disease* + --+ --+ ------+| GFR (mL/min/1.73 m2) ?| With Kidney Damage ?| ?Without Kidney Damage+ --------+ --------+ +| ?>90 ?| ?Stage one ?| ? Normal ?+ ---+ ---+ -------+| ?60-89 ?| ?Stage two ?| ? Decreased GFR ? + --+ --+ ------+| ?30-59 ?| ?Stage three ?| ? Stage three ? + --+ --+ ------+| ?15-29 ?| ?Stage four ? | ? Stage four ?+ ---+ ---+ -------+| ?<15 (or dialysis) ? ?| ?Stage five ? | ? Stage five ?+ ---+ ---+ -------+ *Each stage assumes the associated GFR level has been in effect for at least three months. ?Stages 1 to 5, with or without kidney disease, indicate chronic kidney disease. Notes: Determination of stages one and two (with eGFR >59mL/min/1.73 m2) requires estimation of kidney damage for at least three months as defined by structural or functional abnormalities of the kidney, manifested by either:Pathological abnormalities or Markers of kidney damage (including abnormalities in the composition of the blood or urine or abnormalities in imaging tests). Lab Interpretation Abnormal (test code = 67365-1) [facility]84260[facility] (ALB,T.PRO,BILI T,BU/BC,ALT,AST,ALK PHOS)2022-04-11 08:52:09 Test Item Value Reference Range Interpretation Comments TOTAL BILI (test code = 0179880132) 0.6 mg/dL 0.1-1.1 BILI UNCON (test code = 1660398990) 0.5 mg/dL 0.1-1.1 BILI CONJ (test code = 4372953823) 0.0 mg/dL 0-0.3 T PROTEIN (test code = 4936471868) 5.3 g/dL 6.3-8.2 L ALBUMIN (test code = 8469796152) 2.6 g/dL 3.5-5 L ALK PHOS (test code = 9040356418) 80 U/L 34-122 ALTv (test code = 1742-6) 16 U/L 5-35 AST(SGOT) (test code = 7452503542) 55 U/L 13-40 H Lab Interpretation (test code = Abnormal 97906-9) [facility] 08:52:09 Test Item Value Reference Range Interpretation Comments MAGNESIUM (test code = 7021264621) 1.8 mg/dL 1.7-2.4 Lab Interpretation (test code = Normal 53850-5) [facility] 08:52:09 Test Item Value Reference Range Interpretation Comments PHOSPHORUS (test code = 3728039702) 2.2 mg/dL 2.5-5 L Lab Interpretation (test code = Abnormal 90761-3) [facility] 08:52:09 Test Item Value Reference Range Interpretation Comments LIPASE (test code = 7703965597) 23 U/L 0-220 Lab Interpretation (test code = Normal 07221-5) [facility] METABOLIC PANEL (NA, K, CL, CO2, GLUCOSE, BUN, CREATININE, CA)2022-04-11 08:52:09 Test Item Value Reference Range Interpretation Comments NA (test code = 130 mmol/L 135-145 L 9409602868) K (test code = 3.5 mmol/L 3.5-5 9749526377) CL (test code = 103 mmol/L 98-108 6470792071) CO2 TOTAL (test code = 24 mmol/L 23-31 7052910441) AGAP (test code = 2-16 5586266110) BUN (test code = 6 mg/dL 7-23 L 0695114717) GLUCOSE (test code = 100 mg/dL 70-110 7954160287) CREATININE (test code = 0.62 mg/dL 0.5-1.04 7589552261) CALCIUM (test code = 7.6 mg/dL 8.6-10.6 L 4765786959) eGFR (test code = mL/min/1.73m2 5760769609) JUSTIN (test code = JUSTIN) Association of Glomerular Filtration Rate (GFR) and Staging of Kidney Disease* + --+ --+ ------+| GFR (mL/min/1.73 m2) ?| With Kidney Damage ?| ?Without Kidney Damage+ --------+ --------+ +| ?>90 ?| ?Stage one ?| ? Normal ?+ ---+ ---+ -------+| ?60-89 ?| ?Stage two ?| ? Decreased GFR ? + --+ --+ ------+| ?30-59 ?| ?Stage three ?| ? Stage three ? + --+ --+ ------+| ?15-29 ?| ?Stage four ? | ? Stage four ?+ ---+ ---+ -------+| ?<15 (or dialysis) ? ?| ?Stage five ? | ? Stage five ?+ ---+ ---+ -------+ *Each stage assumes the associated GFR level has been in effect for at least three months. ?Stages 1 to 5, with or without kidney disease, indicate chronic kidney disease. Notes: Determination of stages one and two (with eGFR >59mL/min/1.73 m2) requires estimation of kidney damage for at least three months as defined by structural or functional abnormalities of the kidney, manifested by either:Pathological abnormalities or Markers of kidney damage (including abnormalities in the composition of the blood or urine or abnormalities in imaging tests). Lab Interpretation Abnormal (test code = 54478-3) [facility]65117[facility] (ALB,T.PRO,BILI T,BU/BC,ALT,AST,ALK PHOS)2022-04-11 08:52:09 Test Item Value Reference Range Interpretation Comments TOTAL BILI (test code = 7701146762) 0.6 mg/dL 0.1-1.1 BILI UNCON (test code = 4057044174) 0.5 mg/dL 0.1-1.1 BILI CONJ (test code = 9689133832) 0.0 mg/dL 0-0.3 T PROTEIN (test code = 4914943313) 5.3 g/dL 6.3-8.2 L ALBUMIN (test code = 1829475385) 2.6 g/dL 3.5-5 L ALK PHOS (test code = 5236144495) 80 U/L 34-122 ALTv (test code = 1742-6) 16 U/L 5-35 AST(SGOT) (test code = 8335380327) 55 U/L 13-40 H Lab Interpretation (test code = Abnormal 92817-1) [facility] 08:52:09 Test Item Value Reference Range Interpretation Comments MAGNESIUM (test code = 0188416899) 1.8 mg/dL 1.7-2.4 Lab Interpretation (test code = Normal 78108-1) [facility] 08:52:09 Test Item Value Reference Range Interpretation Comments PHOSPHORUS (test code = 0591527494) 2.2 mg/dL 2.5-5 L Lab Interpretation (test code = Abnormal 29567-4) [facility] 08:52:09 Test Item Value Reference Range Interpretation Comments LIPASE (test code = 4291731149) 23 U/L 0-220 Lab Interpretation (test code = Normal 83523-1) [facility] [id number] 08:40:07 Test Item Value Reference Range Interpretation Comments WBC (test code = See_Comment H [Automated 6690-2) message] The system which generated this result transmit vladislav reference range : 4.30 - 11.10 10*3/?L. The reference range was not used to interpret this result as normal/abnormal . RBC (test code = See_Comment L [Automated 789-8) message] The system which generated this result transmit vladislav reference range : 3.93 - 5.25 10*6/?L. The reference range was not used to interpret this result as normal/abnormal . HGB (test code = 9.8 g/dL 11.6-15 L 718-7) HCT (test code = 29.2 % 35.7-45.2 L 4544-3) MCV (test code = 88.2 fL 80.6-95.5 787-2) MCH (test code = 29.6 pg 25.9-32.8 785-6) MCHC (test code = 33.6 g/dL 31.6-35.1 786-4) RDW-SD (test code = 54.6 fL 39-49.9 H 16072-7) RDW-CV (test code = 16.8 % 12-15.5 H 788-0) PLT (test code = See_Comment [Automated 777-3) message] The system which generated this result transmit vladislav reference range : 166 - 358 10*3/ ?L. The reference range was not u sed to interpret th is result as normal/abnormal . MPV (test code = 9.1 fL 9.5-12.9 L 72547-1) NRBC/100 WBC (test See_Comment [Automat ed code = 7014901789) message] The system which generated this result transmit vladislav reference range : 0.0 - 10.0 /100 WBCs. The reference range was not used to interpret this result as normal/abnormal . NRBC x10^3 (test code See_Comment [Auto mated = 0999644965) message] The system which generated this result transmit vladislav reference range : 10*3/?L. The reference range was not used to interpret this result as normal/abnormal . GRAN MAT (NEUT) % 84.8 % (test code = 770-8) IMM GRAN % (test code 0.90 % = 2564785958) LYMPH % (test code = 9.3 % 736-9) MONO % (test code = 3.9 % 5905-5) EOS % (test code = 0.9 % 713-8) BASO % (test code = 0.2 % 706-2) GRAN MAT x10^3(ANC) 13.96 10*3/uL 1.88-7.09 H (test code = 5132612659) IMM GRAN x10^3 (test 0.14 10*3/uL 0-0.06 H code = 1201330877) LYMPH x10^3 (test code 1.53 10*3/uL 1.32-3.29 = 731-0) MONO x10^3 (test code 0.64 10*3/uL 0.33-0.92 = 742-7) EOS x10^3 (test code = 0.14 10*3/uL 0.03-0.39 711-2) BASO x10^3 (test code 0.04 10*3/uL 0.01-0.07 = 704-7) Lab Interpretation Abnormal (test code = 29316-7) [facility] WITH [id number] 08:40:07 Test Item Value Reference Range Interpretation Comments WBC (test code = See_Comment H [Automated 6690-2) message] The system which generated this result transmit vladislav reference range : 4.30 - 11.10 10*3/?L. The reference range was not used to interpret this result as normal/abnormal . RBC (test code = See_Comment L [Automated 789-8) message] The system which generated this result transmit vladislav reference range : 3.93 - 5.25 10*6/?L. The reference range was not used to interpret this result as normal/abnormal . HGB (test code = 9.8 g/dL 11.6-15 L 718-7) HCT (test code = 29.2 % 35.7-45.2 L 4544-3) MCV (test code = 88.2 fL 80.6-95.5 787-2) MCH (test code = 29.6 pg 25.9-32.8 785-6) MCHC (test code = 33.6 g/dL 31.6-35.1 786-4) RDW-SD (test code = 54.6 fL 39-49.9 H 02395-5) RDW-CV (test code = 16.8 % 12-15.5 H 788-0) PLT (test code = See_Comment [Automated 777-3) message] The system which generated this result transmit vladislav reference range : 166 - 358 10*3/ ?L. The reference range was not u sed to interpret th is result as normal/abnormal . MPV (test code = 9.1 fL 9.5-12.9 L 05219-3) NRBC/100 WBC (test See_Comment [Automat ed code = 8010831421) message] The system which generated this result transmit vladislav reference range : 0.0 - 10.0 /100 WBCs. The reference range was not used to interpret this result as normal/abnormal . NRBC x10^3 (test code See_Comment [Auto mated = 8423629711) message] The system which generated this result transmit vladislav reference range : 10*3/?L. The reference range was not used to interpret this result as normal/abnormal . GRAN MAT (NEUT) % 84.8 % (test code = 770-8) IMM GRAN % (test code 0.90 % = 2900046022) LYMPH % (test code = 9.3 % 736-9) MONO % (test code = 3.9 % 5905-5) EOS % (test code = 0.9 % 713-8) BASO % (test code = 0.2 % 706-2) GRAN MAT x10^3(ANC) 13.96 10*3/uL 1.88-7.09 H (test code = 3494912190) IMM GRAN x10^3 (test 0.14 10*3/uL 0-0.06 H code = 5334397950) LYMPH x10^3 (test code 1.53 10*3/uL 1.32-3.29 = 731-0) MONO x10^3 (test code 0.64 10*3/uL 0.33-0.92 = 742-7) EOS x10^3 (test code = 0.14 10*3/uL 0.03-0.39 711-2) BASO x10^3 (test code 0.04 10*3/uL 0.01-0.07 = 704-7) Lab Interpretation Abnormal (test code = 70204-0) [facility] 12:[facility]:48 Test Item Value Reference Range Interpretation Comments LIPASE (test code = 1728667618) 57 U/L 0-220 Lab Interpretation (test code = Normal 67937-6) [facility] 12:52:48 Test Item Value Reference Range Interpretation Comments LIPASE (test code = 3858385439) 57 U/L 0-220 Lab Interpretation (test code = Normal 24462-9) [facility] METABOLIC PANEL (NA, K, CL, CO2, GLUCOSE, BUN, CREATININE, CA)2022-04-10 10:50:04 Test Item Value Reference Range Interpretation Comments NA (test code = 132 mmol/L 135-145 L 4176475556) K (test code = 3.6 mmol/L 3.5-5 7953913438) CL (test code = 103 mmol/L 98-108 6577078334) CO2 TOTAL (test code = 24 mmol/L 23-31 3240624385) AGAP (test code = 2-16 2305488521) BUN (test code = 9 mg/dL 7-23 4054460653) GLUCOSE (test code = 86 mg/dL 70-110 3041917457) CREATININE (test code = 0.75 mg/dL 0.5-1.04 4410760954) CALCIUM (test code = 7.5 mg/dL 8.6-10.6 L 0156974884) eGFR (test code = mL/min/1.73m2 2578519463) JUSTIN (test code = JUSTIN) Association of Glomerular Filtration Rate (GFR) and Staging of Kidney Disease* + --+ --+ ------+| GFR (mL/min/1.73 m2) ?| With Kidney Damage ?| ?Without Kidney Damage+ --------+ --------+ +| ?>90 ?| ?Stage one ?| ? Normal ?+ ---+ ---+ -------+| ?60-89 ?| ?Stage two ?| ? Decreased GFR ? + --+ --+ ------+| ?30-59 ?| ?Stage three ?| ? Stage three ? + --+ --+ ------+| ?15-29 ?| ?Stage four ? | ? Stage four ?+ ---+ ---+ -------+| ?<15 (or dialysis) ? ?| ?Stage five ? | ? Stage five ?+ ---+ ---+ -------+ *Each stage assumes the associated GFR level has been in effect for at least three months. ?Stages 1 to 5, with or without kidney disease, indicate chronic kidney disease. Notes: Determination of stages one and two (with eGFR >59mL/min/1.73 m2) requires estimation of kidney damage for at least three months as defined by structural or functional abnormalities of the kidney, manifested by either:Pathological abnormalities or Markers of kidney damage (including abnormalities in the composition of the blood or urine or abnormalities in imaging tests). Lab Interpretation Abnormal (test code = 47564-0) [facility] 10:50:04 Test Item Value Reference Range Interpretation Comments MAGNESIUM (test code = 8417409344) 1.5 mg/dL 1.7-2.4 L Lab Interpretation (test code = Abnormal 94120-3) [facility]72735[facility] (ALB,T.PRO,BILI T,BU/BC,ALT,AST,ALK PHOS)2022-04-10 10:50:04 Test Item Value Reference Range Interpretation Comments TOTAL BILI (test code = 5950421682) 0.5 mg/dL 0.1-1.1 BILI UNCON (test code = 4762182291) 0.3 mg/dL 0.1-1.1 BILI CONJ (test code = 2350588235) 0.0 mg/dL 0-0.3 T PROTEIN (test code = 9292788063) 4.9 g/dL 6.3-8.2 L ALBUMIN (test code = 2738586285) 2.3 g/dL 3.5-5 L ALK PHOS (test code = 6982142876) 58 U/L 34-122 ALTv (test code = 1742-6) 15 U/L 5-35 AST(SGOT) (test code = 8157385976) 25 U/L 13-40 Lab Interpretation (test code = Abnormal 16643-2) [facility] METABOLIC PANEL (NA, K, CL, CO2, GLUCOSE, BUN, CREATININE, CA)2022-04-10 10:50:04 Test Item Value Reference Range Interpretation Comments NA (test code = 132 mmol/L 135-145 L 7173487727) K (test code = 3.6 mmol/L 3.5-5 0983008793) CL (test code = 103 mmol/L 98-108 8689591213) CO2 TOTAL (test code = 24 mmol/L 23-31 1658264140) AGAP (test code = 2-16 4820024204) BUN (test code = 9 mg/dL 7-23 8271968540) GLUCOSE (test code = 86 mg/dL 70-110 6948184702) CREATININE (test code = 0.75 mg/dL 0.5-1.04 5429389658) CALCIUM (test code = 7.5 mg/dL 8.6-10.6 L 1005746460) eGFR (test code = mL/min/1.73m2 4700612541) JUSTIN (test code = JUSTIN) Association of Glomerular Filtration Rate (GFR) and Staging of Kidney Disease* + --+ --+ ------+| GFR (mL/min/1.73 m2) ?| With Kidney Damage ?| ?Without Kidney Damage+ --------+ --------+ +| ?>90 ?| ?Stage one ?| ? Normal ?+ ---+ ---+ -------+| ?60-89 ?| ?Stage two ?| ? Decreased GFR ? + --+ --+ ------+| ?30-59 ?| ?Stage three ?| ? Stage three ? + --+ --+ ------+| ?15-29 ?| ?Stage four ? | ? Stage four ?+ ---+ ---+ -------+| ?<15 (or dialysis) ? ?| ?Stage five ? | ? Stage five ?+ ---+ ---+ -------+ *Each stage assumes the associated GFR level has been in effect for at least three months. ?Stages 1 to 5, with or without kidney disease, indicate chronic kidney disease. Notes: Determination of stages one and two (with eGFR >59mL/min/1.73 m2) requires estimation of kidney damage for at least three months as defined by structural or functional abnormalities of the kidney, manifested by either:Pathological abnormalities or Markers of kidney damage (including abnormalities in the composition of the blood or urine or abnormalities in imaging tests). Lab Interpretation Abnormal (test code = 12360-3) [facility] 10:50:04 Test Item Value Reference Range Interpretation Comments MAGNESIUM (test code = 9827566179) 1.5 mg/dL 1.7-2.4 L Lab Interpretation (test code = Abnormal 19866-3) [facility]37177[facility] (ALB,T.PRO,BILI T,BU/BC,ALT,AST,ALK PHOS)2022-04-10 10:50:04 Test Item Value Reference Range Interpretation Comments TOTAL BILI (test code = 3479393460) 0.5 mg/dL 0.1-1.1 BILI UNCON (test code = 2207851324) 0.3 mg/dL 0.1-1.1 BILI CONJ (test code = 3809543020) 0.0 mg/dL 0-0.3 T PROTEIN (test code = 3339486705) 4.9 g/dL 6.3-8.2 L ALBUMIN (test code = 7080680480) 2.3 g/dL 3.5-5 L ALK PHOS (test code = 5972950589) 58 U/L 34-122 ALTv (test code = 1742-6) 15 U/L 5-35 AST(SGOT) (test code = 6873043436) 25 U/L 13-40 Lab Interpretation (test code = Abnormal 64089-5) [id number] 10:30:21 Test Item Value Reference Range Interpretation Comments WBC (test code = See_Comment H [Automated 6690-2) message] The system which generated this result transmit vladislav reference range : 4.30 - 11.10 10*3/?L. The reference range was not used to interpret this result as normal/abnormal . RBC (test code = See_Comment L [Automated 789-8) message] The system which generated this result transmit vladislav reference range : 3.93 - 5.25 10*6/?L. The reference range was not used to interpret this result as normal/abnormal . HGB (test code = 8.9 g/dL 11.6-15 L 718-7) HCT (test code = 25.5 % 35.7-45.2 L 4544-3) MCV (test code = 88.9 fL 80.6-95.5 787-2) MCH (test code = 31.0 pg 25.9-32.8 785-6) MCHC (test code = 34.9 g/dL 31.6-35.1 786-4) RDW-SD (test code = 55.9 fL 39-49.9 H 74650-4) RDW-CV (test code = 17.1 % 12-15.5 H 788-0) PLT (test code = See_Comment [Automated 777-3) message] The system which generated this result transmit vladislav reference range : 166 - 358 10*3/ ?L. The reference range was not u sed to interpret th is result as normal/abnormal . MPV (test code = 9.1 fL 9.5-12.9 L 99071-5) NRBC/100 WBC (test See_Comment [Automat ed code = 4009490323) message] The system which generated this result transmit vladislav reference range : 0.0 - 10.0 /100 WBCs. The reference range was not used to interpret this result as normal/abnormal . NRBC x10^3 (test code See_Comment [Auto mated = 9945011434) message] The system which generated this result transmit vladislav reference range : 10*3/?L. The reference range was not used to interpret this result as normal/abnormal . GRAN MAT (NEUT) % 85.2 % (test code = 770-8) IMM GRAN % (test code 1.20 % = 2906025133) LYMPH % (test code = 8.6 % 736-9) MONO % (test code = 3.8 % 5905-5) EOS % (test code = 1.0 % 713-8) BASO % (test code = 0.2 % 706-2) GRAN MAT x10^3(ANC) 14.08 10*3/uL 1.88-7.09 H (test code = 4003094668) IMM GRAN x10^3 (test 0.20 10*3/uL 0-0.06 H code = 3840583155) LYMPH x10^3 (test code 1.42 10*3/uL 1.32-3.29 = 731-0) MONO x10^3 (test code 0.62 10*3/uL 0.33-0.92 = 742-7) EOS x10^3 (test code = 0.17 10*3/uL 0.03-0.39 711-2) BASO x10^3 (test code 0.04 10*3/uL 0.01-0.07 = 704-7) Lab Interpretation Abnormal (test code = 07155-9) [facility] WITH [id number] 10:30:21 Test Item Value Reference Range Interpretation Comments WBC (test code = See_Comment H [Automated 6790-2) message] The system which generated this result transmit vladislav reference range : 4.30 - 11.10 10*3/?L. The reference range was not used to interpret this result as normal/abnormal . RBC (test code = See_Comment L [Automated 929-8) message] The system which generated this result transmit vladislav reference range : 3.93 - 5.25 10*6/?L. The reference range was not used to interpret this result as normal/abnormal . HGB (test code = 8.9 g/dL 11.6-15 L 718-7) HCT (test code = 25.5 % 35.7-45.2 L 4544-3) MCV (test code = 88.9 fL 80.6-95.5 787-2) MCH (test code = 31.0 pg 25.9-32.8 785-6) MCHC (test code = 34.9 g/dL 31.6-35.1 786-4) RDW-SD (test code = 55.9 fL 39-49.9 H 43478-0) RDW-CV (test code = 17.1 % 12-15.5 H 788-0) PLT (test code = See_Comment [Automated 777-3) message] The system which generated this result transmit vladislav reference range : 166 - 358 10*3/ ?L. The reference range was not u sed to interpret th is result as normal/abnormal . MPV (test code = 9.1 fL 9.5-12.9 L 93441-7) NRBC/100 WBC (test See_Comment [Automat ed code = 2070338856) message] The system which generated this result transmit vladislav reference range : 0.0 - 10.0 /100 WBCs. The reference range was not used to interpret this result as normal/abnormal . NRBC x10^3 (test code See_Comment [Auto mated = 5192699594) message] The system which generated this result transmit vladislav reference range : 10*3/?L. The reference range was not used to interpret this result as normal/abnormal . GRAN MAT (NEUT) % 85.2 % (test code = 770-8) IMM GRAN % (test code 1.20 % = 8362173234) LYMPH % (test code = 8.6 % 736-9) MONO % (test code = 3.8 % 5905-5) EOS % (test code = 1.0 % 713-8) BASO % (test code = 0.2 % 706-2) GRAN MAT x10^3(ANC) 14.08 10*3/uL 1.88-7.09 H (test code = 9260237356) IMM GRAN x10^3 (test 0.20 10*3/uL 0-0.06 H code = 9424163966) LYMPH x10^3 (test code 1.42 10*3/uL 1.32-3.29 = 731-0) MONO x10^3 (test code 0.62 10*3/uL 0.33-0.92 = 742-7) EOS x10^3 (test code = 0.17 10*3/uL 0.03-0.39 711-2) BASO x10^3 (test code 0.04 10*3/uL 0.01-0.07 = 704-7) Lab Interpretation Abnormal (test code = 31740-9) [facility]10 01:43:09 Test Item Value Reference Range Interpretation Comments PH (test code = 2) 7.35-7.45 PCO2 (test code = See_Comment [Automate d message] 6353405104) The system [employer] generated this result transmit vladislav reference range : 35 - 45 mmHg. The reference range was not used to interpret this result as normal/abnormal . PO2 (test code = See_Comment H [Automated message] 6439527074) The system [employer] generated this result transmit vladislav reference range : 80 - 100 mmHg. The reference range was not used to interpret this result as normal/abnormal . HCO3 (test code = See_Comment H [Automate d message] 6396922612) The system [employer] generated this result transmit vladislav reference range : 22 - 26 mEq/L. The reference range was not used to interpret this result as normal/abnormal . BE (test code = See_Comment H [Automated message] 0152623911) The system [employer] generated this result transmit vladislav reference range : -3.0 - 3.0 mEq/ L. The reference r jessica was not used to interpret this result as normal/abnormal . THB (test code = 10.4 g/dL 12-16 L 6221452647) %O2HB (test code = 98.2 % 94-99 4679530906) %COHB ART (test code = 0.8 % 0-1.5 1201309099) %METHB ART (test code = 0.3 % 0.4-1.5 L 0279665262) VOL%O2 ART (test code = 15.0 % 15-23 QUES 2284060248) NA (test code = 134 mmol/L 135-145 L 6192681073) K+ (test code = 2.4 mmol/L 3.5-5 LL 0275293262) AC CA IONZ (test code = 4.50 mg/dL 4.5-5.3 8511314127) GLUCOSE (test code = 133 mg/dL 70-110 H 6327650953) Lab Interpretation Abnormal (test code = 80687-8) [facility]CA2+2022-04-10 01:43:09 Test Item Value Reference Range Interpretation Comments PH (test code = 2) 7.35-7.45 PCO2 (test code = See_Comment [Automate d message] 3505704122) The system [employer] generated this result transmit vladislav reference range : 35 - 45 mmHg. The reference range was not used to interpret this result as normal/abnormal . PO2 (test code = See_Comment H [Automated message] 3405505439) The system [employer] generated this result transmit vladislav reference range : 80 - 100 mmHg. The reference range was not used to interpret this result as normal/abnormal . HCO3 (test code = See_Comment H [Automate d message] 9928677404) The system [employer] generated this result transmit vladislav reference range : 22 - 26 mEq/L. The reference range was not used to interpret this result as normal/abnormal . BE (test code = See_Comment H [Automated message] 5488207879) The system [employer] generated this result transmit vladislav reference range : -3.0 - 3.0 mEq/ L. The reference r jessica was not used to interpret this result as normal/abnormal . THB (test code = 10.4 g/dL 12-16 L 4430070502) %O2HB (test code = 98.2 % 94-99 8736540857) %COHB ART (test code = 0.8 % 0-1.5 1922179011) %METHB ART (test code = 0.3 % 0.4-1.5 L 9437793466) VOL%O2 ART (test code = 15.0 % 15-23 QUES 1735693241) NA (test code = 134 mmol/L 135-145 L 1425667372) K+ (test code = 2.4 mmol/L 3.5-5 LL 9832673104) AC CA IONZ (test code = 4.50 mg/dL 4.5-5.3 0343094723) GLUCOSE (test code = 133 mg/dL 70-110 H 1135264240) Lab Interpretation Abnormal (test code = 06698-3) [facility]CA2+2022-04-10 01:42:24 Test Item Value Reference Range Interpretation Comments PH (test code = 2) 7.35-7.45 PCO2 (test code = See_Comment [Automate d message] 2175406006) The system [employer] generated this result transmit vladislav reference range : 35 - 45 mmHg. The reference range was not used to interpret this result as normal/abnormal . PO2 (test code = See_Comment H [Automated message] 9806681922) The system [employer] generated this result transmit vladislav reference range : 80 - 100 mmHg. The reference range was not used to interpret this result as normal/abnormal . HCO3 (test code = See_Comment H [Automate d message] 6182595867) The system [employer] generated this result transmit vladislav reference range : 22 - 26 mEq/L. The reference range was not used to interpret this result as normal/abnormal . BE (test code = See_Comment [Automated message] 8302407145) The system [employer] generated this result transmit vladislav reference range : -3.0 - 3.0 mEq/ L. The reference r jessica was not used to interpret this result as normal/abnormal . THB (test code = 10.0 g/dL 12-16 L 6099020830) %O2HB (test code = 98.4 % 94-99 8886743909) %COHB ART (test code = 0.2 % 0-1.5 4136507199) %METHB ART (test code = 0.3 % 0.4-1.5 L 7837966050) VOL%O2 ART (test code = 14.4 % 15-23 L QUES 5415511290) NA (test code = 135 mmol/L 135-145 8675862025) K+ (test code = 2.7 mmol/L 3.5-5 LL 3453534774) AC CA IONZ (test code = 4.60 mg/dL 4.5-5.3 1614469815) GLUCOSE (test code = 130 mg/dL 70-110 H 1049916699) Lab Interpretation Abnormal (test code = 64654-5) [facility]CA2+2022-04-10 01:42:24 Test Item Value Reference Range Interpretation Comments PH (test code = 2) 7.35-7.45 PCO2 (test code = See_Comment [Automate d message] 4333342617) The system [employer] generated this result transmit vladislav reference range : 35 - 45 mmHg. The reference range was not used to interpret this result as normal/abnormal . PO2 (test code = See_Comment H [Automated message] 6917293804) The system [employer] generated this result transmit vladislav reference range : 80 - 100 mmHg. The reference range was not used to interpret this result as normal/abnormal . HCO3 (test code = See_Comment H [Automate d message] 0455268172) The system [employer] generated this result transmit vladislav reference range : 22 - 26 mEq/L. The reference range was not used to interpret this result as normal/abnormal . BE (test code = See_Comment [Automated message] 9314069118) The system [employer] generated this result transmit vladislav reference range : -3.0 - 3.0 mEq/ L. The reference r jessica was not used to interpret this result as normal/abnormal . THB (test code = 10.0 g/dL 12-16 L 8509669475) %O2HB (test code = 98.4 % 94-99 0627315669) %COHB ART (test code = 0.2 % 0-1.5 9763661353) %METHB ART (test code = 0.3 % 0.4-1.5 L 1034523696) VOL%O2 ART (test code = 14.4 % 15-23 L QUES 0272147885) NA (test code = 135 mmol/L 135-145 0875850535) K+ (test code = 2.7 mmol/L 3.5-5 LL 2440989914) AC CA IONZ (test code = 4.60 mg/dL 4.5-5.3 2225124701) GLUCOSE (test code = 130 mg/dL 70-110 H 7506610387) Lab Interpretation Abnormal (test code = 95618-6) [facility] Metabolic Panel (NA, K, CL, CO2, GLUCOSE, BUN, CREATININE, CA)2022-04-09 11:26:31 Test Item Value Reference Range Interpretation Comments NA (test code = 132 mmol/L 135-145 L 8874198942) K (test code = 3.8 mmol/L 3.5-5 8317298099) CL (test code = 102 mmol/L 98-108 3670281305) CO2 TOTAL (test code = 27 mmol/L 23-31 7589772727) AGAP (test code = 2-16 7780995657) BUN (test code = 14 mg/dL 7-23 9850500813) GLUCOSE (test code = 106 mg/dL 70-110 6065447071) CREATININE (test code = 0.68 mg/dL 0.5-1.04 5900379477) CALCIUM (test code = 7.5 mg/dL 8.6-10.6 L 3027783899) eGFR (test code = mL/min/1.73m2 3747805692) JUSTIN (test code = JUSTIN) Association of Glomerular Filtration Rate (GFR) and Staging of Kidney Disease* + --+ --+ ------+| GFR (mL/min/1.73 m2) ?| With Kidney Damage ?| ?Without Kidney Damage+ --------+ --------+ +| ?>90 ?| ?Stage one ?| ? Normal ?+ ---+ ---+ -------+| ?60-89 ?| ?Stage two ?| ? Decreased GFR ? + --+ --+ ------+| ?30-59 ?| ?Stage three ?| ? Stage three ? + --+ --+ ------+| ?15-29 ?| ?Stage four ? | ? Stage four ?+ ---+ ---+ -------+| ?<15 (or dialysis) ? ?| ?Stage five ? | ? Stage five ?+ ---+ ---+ -------+ *Each stage assumes the associated GFR level has been in effect for at least three months. ?Stages 1 to 5, with or without kidney disease, indicate chronic kidney disease. Notes: Determination of stages one and two (with eGFR >59mL/min/1.73 m2) requires estimation of kidney damage for at least three months as defined by structural or functional abnormalities of the kidney, manifested by either:Pathological abnormalities or Markers of kidney damage (including abnormalities in the composition of the blood or urine or abnormalities in imaging tests). Lab Interpretation Abnormal (test code = 91818-0) [facility] [id number] 11:26:31 Test Item Value Reference Range Interpretation Comments MAGNESIUM (test code = 5751972147) 1.7 mg/dL 1.7-2.4 Lab Interpretation (test code = Normal 52830-9) [facility] Aktrr1640-37-46 11:26:31 Test Item Value Reference Range Interpretation Comments PHOSPHORUS (test code = 5380113736) 2.9 mg/dL 2.5-5 Lab Interpretation (test code = Normal 64763-6) [facility] (ALB, T.PRO, BILI T, BU/BC, ALT, AST, ALK PHOS)2022-04-09 11:26:31 Test Item Value Reference Range Interpretation Comments TOTAL BILI (test code = 7351365951) 0.5 mg/dL 0.1-1.1 BILI UNCON (test code = 2669939534) 0.5 mg/dL 0.1-1.1 BILI CONJ (test code = 8060583004) 0.0 mg/dL 0-0.3 T PROTEIN (test code = 9469883337) 5.0 g/dL 6.3-8.2 L ALBUMIN (test code = 9895839685) 2.5 g/dL 3.5-5 L ALK PHOS (test code = 5132678770) 46 U/L 34-122 ALTv (test code = 1742-6) 19 U/L 5-35 AST(SGOT) (test code = 4743430478) 32 U/L 13-40 Lab Interpretation (test code = Abnormal 59763-4) [facility] [id number] 11:26:31 Test Item Value Reference Range Interpretation Comments LIPASE (test code = 8420820905) 442 U/L 0-220 H Lab Interpretation (test code = Abnormal 00727-5) [facility] (NA, K, CL, CO2, GLUCOSE, BUN, CREATININE, CA)2022-04-09 11:26:31 Test Item Value Reference Range Interpretation Comments NA (test code = 132 mmol/L 135-145 L 8536399353) K (test code = 3.8 mmol/L 3.5-5 7969973809) CL (test code = 102 mmol/L 98-108 6264641382) CO2 TOTAL (test code = 27 mmol/L 23-31 5193267177) AGAP (test code = 2-16 5877155503) BUN (test code = 14 mg/dL 7-23 4018692182) GLUCOSE (test code = 106 mg/dL 70-110 8051031452) CREATININE (test code = 0.68 mg/dL 0.5-1.04 1326265389) CALCIUM (test code = 7.5 mg/dL 8.6-10.6 L 5042076212) eGFR (test code = mL/min/1.73m2 0065056156) JUTSIN (test code = JUSTIN) Association of Glomerular Filtration Rate (GFR) and Staging of Kidney Disease* + --+ --+ ------+| GFR (mL/min/1.73 m2) ?| With Kidney Damage ?| ?Without Kidney Damage+ --------+ --------+ +| ?>90 ?| ?Stage one ?| ? Normal ?+ ---+ ---+ -------+| ?60-89 ?| ?Stage two ?| ? Decreased GFR ? + --+ --+ ------+| ?30-59 ?| ?Stage three ?| ? Stage three ? + --+ --+ ------+| ?15-29 ?| ?Stage four ? | ? Stage four ?+ ---+ ---+ -------+| ?<15 (or dialysis) ? ?| ?Stage five ? | ? Stage five ?+ ---+ ---+ -------+ *Each stage assumes the associated GFR level has been in effect for at least three months. ?Stages 1 to 5, with or without kidney disease, indicate chronic kidney disease. Notes: Determination of stages one and two (with eGFR >59mL/min/1.73 m2) requires estimation of kidney damage for at least three months as defined by structural or functional abnormalities of the kidney, manifested by either:Pathological abnormalities or Markers of kidney damage (including abnormalities in the composition of the blood or urine or abnormalities in imaging tests). Lab Interpretation Abnormal (test code = 62960-9) [facility] [id number] 11:26:31 Test Item Value Reference Range Interpretation Comments MAGNESIUM (test code = 2485426204) 1.7 mg/dL 1.7-2.4 Lab Interpretation (test code = Normal 61604-7) [facility] Zuspu1977-07-12 11:26:31 Test Item Value Reference Range Interpretation Comments PHOSPHORUS (test code = 5245481889) 2.9 mg/dL 2.5-5 Lab Interpretation (test code = Normal 33192-7) [facility] (ALB, T.PRO, BILI T, BU/BC, ALT, AST, ALK PHOS)2022-04-09 11:26:31 Test Item Value Reference Range Interpretation Comments TOTAL BILI (test code = 0975287438) 0.5 mg/dL 0.1-1.1 BILI UNCON (test code = 3506126606) 0.5 mg/dL 0.1-1.1 BILI CONJ (test code = 1778168304) 0.0 mg/dL 0-0.3 T PROTEIN (test code = 5419893522) 5.0 g/dL 6.3-8.2 L ALBUMIN (test code = 1157619593) 2.5 g/dL 3.5-5 L ALK PHOS (test code = 8014541658) 46 U/L 34-122 ALTv (test code = 1742-6) 19 U/L 5-35 AST(SGOT) (test code = 0549010732) 32 U/L 13-40 Lab Interpretation (test code = Abnormal 74289-8) [facility] [id number] 11:26:31 Test Item Value Reference Range Interpretation Comments LIPASE (test code = 0777878595) 442 U/L 0-220 H Lab Interpretation (test code = Abnormal 81694-5) [facility] with Qrawtxeofqzf3249-47-34 11:06:29 Test Item Value Reference Range Interpretation Comments WBC (test code = See_Comment H [Automated 4390-2) message] The system which generated this result transmitted reference range : 4.30 - 11.10 10*3/?L. The reference range was not used to interpret this result as normal/abnormal . RBC (test code = See_Comment L [Automated 219-8) message] The system which generated this result transmitted reference range : 3.93 - 5.25 10*6/?L. The reference range was not used to interpret this result as normal/abnormal . HGB (test code = 9.6 g/dL 11.6-15 L 718-7) HCT (test code = 28.8 % 35.7-45.2 L 4544-3) MCV (test code = 89.2 fL 80.6-95.5 787-2) MCH (test code = 29.7 pg 25.9-32.8 785-6) MCHC (test code = 33.3 g/dL 31.6-35.1 786-4) RDW-SD (test code = 55.3 fL 39-49.9 H 27766-8) RDW-CV (test code = 17.1 % 12-15.5 H 788-0) PLT (test code = See_Comment [Automated 777-3) message] The system which generated this result transmitted reference range : 166 - 358 10*3/?L. The reference range was not used to interpret this result as normal/abnormal . MPV (test code = 9.1 fL 9.5-12.9 L 14315-8) NRBC/100 WBC (test See_Comment [Automat ed code = 7994544260) message] The system which generated this result transmitted reference range : 0.0 - 10.0 /100 WBCs. The reference range was not used to interpret this result as normal/abnormal . NRBC x10^3 (test code See_Comment [Auto mated = 2836423395) message] The system which generated this result transmitted reference range : 10*3/?L. The reference range was not used to interpret this result as normal/abnormal . GRAN MAT (NEUT) % 88.3 % (test code = 770-8) IMM GRAN % (test code 0.60 % = 6983436758) LYMPH % (test code = 8.1 % 736-9) MONO % (test code = 2.5 % 5905-5) EOS % (test code = 0.3 % 713-8) BASO % (test code = 0.2 % 706-2) GRAN MAT x10^3(ANC) 17.92 10*3/uL 1.88-7.09 H (test code = 0068510336) IMM GRAN x10^3 (test 0.12 10*3/uL 0-0.06 H code = 3465622552) LYMPH x10^3 (test 1.65 10*3/uL 1.32-3.29 code = 731-0) MONO x10^3 (test code 0.51 10*3/uL 0.33-0.92 = 742-7) EOS x10^3 (test code 0.07 10*3/uL 0.03-0.39 = 711-2) BASO x10^3 (test code 0.04 10*3/uL 0.01-0.07 = 704-7) BROWN CELLS (test code 3+ See_Comment A [Auto mated = 7790-9) message] The system which generated this result transmitted reference range : (none). The reference range was not used to interpret this result as normal/abnormal . BANDS (test code = MARKED INCREASED A 1231954234) Lab Interpretation Abnormal (test code = 50848-2) [facility] with Motfacywdalq1719-61-20 11:06:29 Test Item Value Reference Range Interpretation Comments WBC (test code = See_Comment H [Automated 6690-2) message] The system which generated this result transmitted reference range : 4.30 - 11.10 10*3/?L. The reference range was not used to interpret this result as normal/abnormal . RBC (test code = See_Comment L [Automated 789-8) message] The system which generated this result transmitted reference range : 3.93 - 5.25 10*6/?L. The reference range was not used to interpret this result as normal/abnormal . HGB (test code = 9.6 g/dL 11.6-15 L 718-7) HCT (test code = 28.8 % 35.7-45.2 L 4544-3) MCV (test code = 89.2 fL 80.6-95.5 787-2) MCH (test code = 29.7 pg 25.9-32.8 785-6) MCHC (test code = 33.3 g/dL 31.6-35.1 786-4) RDW-SD (test code = 55.3 fL 39-49.9 H 31772-6) RDW-CV (test code = 17.1 % 12-15.5 H 788-0) PLT (test code = See_Comment [Automated 777-3) message] The system which generated this result transmitted reference range : 166 - 358 10*3/?L. The reference range was not used to interpret this result as normal/abnormal . MPV (test code = 9.1 fL 9.5-12.9 L 73224-1) NRBC/100 WBC (test See_Comment [Automat ed code = 9821053837) message] The system which generated this result transmitted reference range : 0.0 - 10.0 /100 WBCs. The reference range was not used to interpret this result as normal/abnormal . NRBC x10^3 (test code See_Comment [Auto mated = 8313262184) message] The system which generated this result transmitted reference range : 10*3/?L. The reference range was not used to interpret this result as normal/abnormal . GRAN MAT (NEUT) % 88.3 % (test code = 770-8) IMM GRAN % (test code 0.60 % = 4365966129) LYMPH % (test code = 8.1 % 736-9) MONO % (test code = 2.5 % 5905-5) EOS % (test code = 0.3 % 713-8) BASO % (test code = 0.2 % 706-2) GRAN MAT x10^3(ANC) 17.92 10*3/uL 1.88-7.09 H (test code = 7306308026) IMM GRAN x10^3 (test 0.12 10*3/uL 0-0.06 H code = 5233170529) LYMPH x10^3 (test 1.65 10*3/uL 1.32-3.29 code = 731-0) MONO x10^3 (test code 0.51 10*3/uL 0.33-0.92 = 742-7) EOS x10^3 (test code 0.07 10*3/uL 0.03-0.39 = 711-2) BASO x10^3 (test code 0.04 10*3/uL 0.01-0.07 = 704-7) BROWN CELLS (test code 3+ See_Comment A [Auto mated = 9190-9) message] The system which generated this result transmitted reference range : (none). The reference range was not used to interpret this result as normal/abnormal . BANDS (test code = MARKED INCREASED A 6319939185) Lab Interpretation Abnormal (test code = 53043-2) [facility] METABOLIC PANEL (NA, K, CL, CO2, GLUCOSE, BUN, CREATININE, CA)2022-04-08 19:58:28 Test Item Value Reference Range Interpretation Comments NA (test code = 136 mmol/L 135-145 8743217419) K (test code = 2.9 mmol/L 3.5-5 LL 2535067903) CL (test code = 102 mmol/L 98-108 1065796374) CO2 TOTAL (test code = 27 mmol/L 23-31 8953104222) AGAP (test code = 2-16 5006534758) BUN (test code = 14 mg/dL 7-23 6643207489) GLUCOSE (test code = 117 mg/dL 70-110 H 9632378854) CREATININE (test code = 0.70 mg/dL 0.5-1.04 9775071522) CALCIUM (test code = 7.5 mg/dL 8.6-10.6 L 7885237926) eGFR (test code = mL/min/1.73m2 7496010878) JUSTIN (test code = JUSTIN) Association of Glomerular Filtration Rate (GFR) and Staging of Kidney Disease* + --+ --+ ------+| GFR (mL/min/1.73 m2) ?| With Kidney Damage ?| ?Without Kidney Damage+ --------+ --------+ +| ?>90 ?| ?Stage one ?| ? Normal ?+ ---+ ---+ -------+| ?60-89 ?| ?Stage two ?| ? Decreased GFR ? + --+ --+ ------+| ?30-59 ?| ?Stage three ?| ? Stage three ? + --+ --+ ------+| ?15-29 ?| ?Stage four ? | ? Stage four ?+ ---+ ---+ -------+| ?<15 (or dialysis) ? ?| ?Stage five ? | ? Stage five ?+ ---+ ---+ -------+ *Each stage assumes the associated GFR level has been in effect for at least three months. ?Stages 1 to 5, with or without kidney disease, indicate chronic kidney disease. Notes: Determination of stages one and two (with eGFR >59mL/min/1.73 m2) requires estimation of kidney damage for at least three months as defined by structural or functional abnormalities of the kidney, manifested by either:Pathological abnormalities or Markers of kidney damage (including abnormalities in the composition of the blood or urine or abnormalities in imaging tests). Lab Interpretation Abnormal (test code = 18756-2) [facility] METABOLIC PANEL (NA, K, CL, CO2, GLUCOSE, BUN, CREATININE, CA)2022-04-08 19:58:28 Test Item Value Reference Range Interpretation Comments NA (test code = 136 mmol/L 135-145 7138400831) K (test code = 2.9 mmol/L 3.5-5 LL 4534501135) CL (test code = 102 mmol/L 98-108 4642089353) CO2 TOTAL (test code = 27 mmol/L 23-31 1523414460) AGAP (test code = 2-16 2170084700) BUN (test code = 14 mg/dL 7-23 2343152752) GLUCOSE (test code = 117 mg/dL 70-110 H 7656792680) CREATININE (test code = 0.70 mg/dL 0.5-1.04 8696184097) CALCIUM (test code = 7.5 mg/dL 8.6-10.6 L 1440766347) eGFR (test code = mL/min/1.73m2 0188317897) JUSTIN (test code = JUSTIN) Association of Glomerular Filtration Rate (GFR) and Staging of Kidney Disease* + --+ --+ ------+| GFR (mL/min/1.73 m2) ?| With Kidney Damage ?| ?Without Kidney Damage+ --------+ --------+ +| ?>90 ?| ?Stage one ?| ? Normal ?+ ---+ ---+ -------+| ?60-89 ?| ?Stage two ?| ? Decreased GFR ? + --+ --+ ------+| ?30-59 ?| ?Stage three ?| ? Stage three ? + --+ --+ ------+| ?15-29 ?| ?Stage four ? | ? Stage four ?+ ---+ ---+ -------+| ?<15 (or dialysis) ? ?| ?Stage five ? | ? Stage five ?+ ---+ ---+ -------+ *Each stage assumes the associated GFR level has been in effect for at least three months. ?Stages 1 to 5, with or without kidney disease, indicate chronic kidney disease. Notes: Determination of stages one and two (with eGFR >59mL/min/1.73 m2) requires estimation of kidney damage for at least three months as defined by structural or functional abnormalities of the kidney, manifested by either:Pathological abnormalities or Markers of kidney damage (including abnormalities in the composition of the blood or urine or abnormalities in imaging tests). Lab Interpretation Abnormal (test code = 90397-4) [facility] WITH [id number] 17:53:58 Test Item Value Reference Range Interpretation Comments WBC (test code = See_Comment H [Automated 6690-2) message] The system which generated this result transmit vladislav reference range : 4.30 - 11.10 10*3/?L. The reference range was not used to interpret this result as normal/abnormal . RBC (test code = See_Comment L [Automated 789-8) message] The system which generated this result transmit vladislav reference range : 3.93 - 5.25 10*6/?L. The reference range was not used to interpret this result as normal/abnormal . HGB (test code = 9.3 g/dL 11.6-15 L 718-7) HCT (test code = 27.5 % 35.7-45.2 L 4544-3) MCV (test code = 88.4 fL 80.6-95.5 787-2) MCH (test code = 29.9 pg 25.9-32.8 785-6) MCHC (test code = 33.8 g/dL 31.6-35.1 786-4) RDW-SD (test code = 54.3 fL 39-49.9 H 69294-3) RDW-CV (test code = 16.6 % 12-15.5 H 788-0) PLT (test code = See_Comment [Automated 777-3) message] The system which generated this result transmit vladislav reference range : 166 - 358 10*3/ ?L. The reference range was not u sed to interpret th is result as normal/abnormal . MPV (test code = 8.8 fL 9.5-12.9 L 02509-0) NRBC/100 WBC (test See_Comment [Automat ed code = 2834617129) message] The system which generated this result transmit vladislav reference range : 0.0 - 10.0 /100 WBCs. The reference range was not used to interpret this result as normal/abnormal . NRBC x10^3 (test code See_Comment [Auto mated = 0725950705) message] The system which generated this result transmit vladislav reference range : 10*3/?L. The reference range was not used to interpret this result as normal/abnormal . GRAN MAT (NEUT) % 89.0 % (test code = 770-8) IMM GRAN % (test code 0.40 % = 8829451489) LYMPH % (test code = 5.5 % 736-9) MONO % (test code = 4.9 % 5905-5) EOS % (test code = 0.1 % 713-8) BASO % (test code = 0.1 % 706-2) GRAN MAT x10^3(ANC) 12.30 10*3/uL 1.88-7.09 H (test code = 5989467473) IMM GRAN x10^3 (test 0.06 10*3/uL 0-0.06 code = 5820197006) LYMPH x10^3 (test code 0.76 10*3/uL 1.32-3.29 L = 731-0) MONO x10^3 (test code 0.67 10*3/uL 0.33-0.92 = 742-7) EOS x10^3 (test code = 0.03-0.39 L 711-2) BASO x10^3 (test code 0.01-0.07 = 704-7) Lab Interpretation Abnormal (test code = 57362-9) [facility] WITH [id number] 17:53:58 Test Item Value Reference Range Interpretation Comments WBC (test code = See_Comment H [Automated 6690-2) message] The system which generated this result transmit vladislav reference range : 4.30 - 11.10 10*3/?L. The reference range was not used to interpret this result as normal/abnormal . RBC (test code = See_Comment L [Automated 789-8) message] The system which generated this result transmit vladislav reference range : 3.93 - 5.25 10*6/?L. The reference range was not used to interpret this result as normal/abnormal . HGB (test code = 9.3 g/dL 11.6-15 L 718-7) HCT (test code = 27.5 % 35.7-45.2 L 4544-3) MCV (test code = 88.4 fL 80.6-95.5 787-2) MCH (test code = 29.9 pg 25.9-32.8 785-6) MCHC (test code = 33.8 g/dL 31.6-35.1 786-4) RDW-SD (test code = 54.3 fL 39-49.9 H 18293-6) RDW-CV (test code = 16.6 % 12-15.5 H 788-0) PLT (test code = See_Comment [Automated 777-3) message] The system which generated this result transmit vladislav reference range : 166 - 358 10*3/ ?L. The reference range was not u sed to interpret th is result as normal/abnormal . MPV (test code = 8.8 fL 9.5-12.9 L 49637-8) NRBC/100 WBC (test See_Comment [Automat ed code = 5956548416) message] The system which generated this result transmit vladislav reference range : 0.0 - 10.0 /100 WBCs. The reference range was not used to interpret this result as normal/abnormal . NRBC x10^3 (test code See_Comment [Auto mated = 6982148660) message] The system which generated this result transmit vladislav reference range : 10*3/?L. The reference range was not used to interpret this result as normal/abnormal . GRAN MAT (NEUT) % 89.0 % (test code = 770-8) IMM GRAN % (test code 0.40 % = 9927543215) LYMPH % (test code = 5.5 % 736-9) MONO % (test code = 4.9 % 5905-5) EOS % (test code = 0.1 % 713-8) BASO % (test code = 0.1 % 706-2) GRAN MAT x10^3(ANC) 12.30 10*3/uL 1.88-7.09 H (test code = 6186806449) IMM GRAN x10^3 (test 0.06 10*3/uL 0-0.06 code = 0475527890) LYMPH x10^3 (test code 0.76 10*3/uL 1.32-3.29 L = 731-0) MONO x10^3 (test code 0.67 10*3/uL 0.33-0.92 = 742-7) EOS x10^3 (test code = 0.03-0.39 L 711-2) BASO x10^3 (test code 0.01-0.07 = 704-7) Lab Interpretation Abnormal (test code = 06850-5) [facility] [id number] 12:00:58 Test Item Value Reference Range Interpretation Comments ABO & RH (test code O POSITIVE Performe d at [facility] = 20) Laboratory [facility] [address] [facility] s [id number] Free: [phone] A No. [id number] IAT (test code = Negative Performed a t [facility] 1185) Laboratory [facility] [address] [place] [address] s [id number] Free: [phone] A No. [id number] [facility] [id number] 12:00:58 Test Item Value Reference Range Interpretation Comments ABO & RH (test code O POSITIVE Performe d at [facility] = 20) Laboratory [facility] [address] [place] [address] s [id number] Free: [phone] A No. [id number] IAT (test code = Negative Performed a t [facility] 1185) Laboratory [facility] [address] [place] [address] s [id number] Free: [phone] A No. [id number] [facility]
[2023-04-05 08:59] LABS: Absolute Lymphocytes (CBC) 2.1 K/uL (0.7-4.9); Hematocrit 32.3 % (36.0-45.0); MCV 93.6 fL (80-100); MPV 6.7 fL (7.6-11.3); Platelets 327 thou/uL (152-406); RBC Red Blood Cell Count 3.45 M/uL (3.86-4.86)
[2023-04-05] MEDS ORDERED: ONDANSETRON 4 MG/2 ML VIAL ONE (09:08)
[2023-04-05] MEDS ORDERED: HYDROMORPHONE HCL 0.5 MG/0.5 ML INJ ONE ×2 (09:08→09:32)
[2023-04-05 09:21] LABS: Bilirubin Direct 0.1 mg/dL (0-0.2); Bilirubin Indirect, Calculated 0.2 mg/dL (0.2-0.8); Bilirubin Total 0.3 mg/dL (0.2-1.0); Potassium 3.6 mEq/L (3.5-5.1); Protein, Total 6.4 g/dL (6.4-8.2)
[2023-04-05 09:22] LABS: Troponin High Sensitivity 84.9 pg/mL (<58.9)
--- NOTE | 2023-04-05 09:42 | RAD REPORT ---
EXAM DESCRIPTION: RAD - Chest Single View - 04/05/2023 9:35 am CLINICAL HISTORY: CHEST PAIN Chest pain. COMPARISON: Chest Pa And Lat (2 Views) dated 01/11/2017; CHEST SINGLE VIEW dated 01/18/2015; CHEST SIN GLE VIEW dated 12/12/2011; CHEST PA AND LAT 2 VIEW dated 04/04/2011 FINDINGS: Portable technique limits examination quality. The lungs are emphysematous but grossly clear. Calcified granulomas in the right mid lung stable. The heart is mildly enlarged in size. No displaced fractures. IMPRESSION: No acute intrathoracic process suspected.
[2023-04-05] MEDS ORDERED: ASPIRIN 81 MG CHEWABLE TABLET ONE (10:03)
--- NOTE | 2023-04-05 10:28 | RAD REPORT ---
EXAM DESCRIPTION: CTAbdomen Pelvis W Contrast - 04/05/2023 9:47 am CLINICAL HISTORY: Abdominal pain. ABD PAIN COMPARISON: Abdomen Pelvis W Contrast dated 11/18/2021; Abdomen Pelvis W Contrast dated 04/02/2016 ; CT ABD PELVIS W CONTRAST dated 04/02/2015; CT ABD PELVIS W CONTRAST dated 10/25/2012; Cholangiogram d ated 01/05/2023 TECHNIQUE: Biphasic CT imaging of the abdomen and pelvis was performed with 100 ml non-ionic IV cont rast. All CT scans are performed using dose optimization technique as appropriate and may include automated exposure control or mA/KV adjustment according to patient size. FINDINGS: Mild subsegmental atelectasis in both lung bases. Cholecystectomy. There is moderate intrahepatic biliary dilatation. Significant pneumobilia is presen t. The pancreatic duct is also dilated in an irregular fashion. The degree of dilatation of the bilia ry tree, however is moderately improved since 11/18/2021 study. Along the inferior right lobe liver there is enhancing lesion noted measuring 13 mm this was not guy rly identified on the 11/18/2021 prior study. Similarly, 10 mm enhancing lesion anterior right lobe l iver subcapsular location also noted, new since prior study. The spleen, pancreatic parenchyma, left adrenal gland are normal. Right adrenal gland demonstrates 28 mm mass which appears mildly increased in size since 11/18/2021. No solid renal mass or hydronephros is. No perinephric abnormality. Aortoiliac atherosclerosis is present. There is prominent sigmoid di verticulosis coli without diverticulitis. Trace lobulated hypodense collections along the right liver edge, nonspecific. This has somewhat incr eased since the comparative examination. Cystic structure in the posterior right pelvis has increased in size currently measuring 5.3 cm, prev iously 3.6 cm. Prominent sigmoid diverticulosis coli without diverticulitis. IMPRESSION: Significant biliary dilatation is once again seen however does appear moderately improve d relative to prior study. Small subscapular enhancing lesions are present in the liver parenchyma as detailed, appearing new si nce prior study. In addition, right-sided adrenal masses have increased in size. Nonemergent MRI live r/adrenal protocol with contrast would be advised for further evaluation. Interval enlargement of right posterior pelvic cystic structure as detailed, nonspecific. In this age group, follow-up assessment of cystic lesion would be indicated with nonemergent pelvic sonography o r MRI pelvis. Diverticulosis coli without diverticulitis.
--- NOTE | 2023-04-05 10:43 | EDPHYS ---
Physician Documentation [facility] Name: Jazz Carlson Age: 78 yrs Sex: Female : 1945 Arrival Date: 04/05/2023 Time: 08:29 Bed 18 Private MD: ED Physician Huey Johnson HPI: 04/05 08:45 This 78 yrs old Female presents to ER via Wheelchair with complaints of Chest Pain, ms3 Epigastric pain. 08:45 78-year-old female with past medical history of colitis and hypertension presents for ms3 epigastric abdominal pain that awoke her from sleep at 6:30 AM. Patient states the pain is a 10/10, sharp and constant. Patient states the pain radiates to her back. Patient denies nausea, vomiting, fevers, chills, sweats. Patient denies any alleviating or inciting factors. Historical: - Allergies: 08:39 Morphine (Hives); iw - PMHx: 08:39 Colitis; Hypothyroidism; Hypertension; squamous cell carcinoma; iw ROS: 08:45 Constitutional: Negative for fever, and chills. Neck: Negative for injury, pain, and ms3 swelling, Cardiovascular: Negative for chest pain, and palpitations. Respiratory: Negative for shortness of breath, cough, wheezing, and pleuritic chest pain, 08:45 MS/Extremity: Negative for injury and deformity, Skin: Negative for injury, rash, and discoloration, 08:45 Abdomen/GI: Positive for abdominal pain, 08:45 All other systems are negative, Exam: 08:45 Constitutional: This is a well developed, well nourished patient who is awake, alert, ms3 and in no acute distress. Head/Face: Normocephalic, atraumatic. Chest/axilla: Normal chest wall appearance and motion. Nontender with no deformity. Cardiovascular: Regular rate and rhythm with a normal S1 and S2. No gallops, murmurs, or rubs. Normal PMI, no JVD. No pulse deficits. Respiratory: Lungs have equal breath sounds bilaterally, clear to auscultation and percussion. No rales, rhonchi or wheezes noted. No increased work of breathing, no retractions or nasal flaring. Skin: Warm, dry with normal turgor. Normal color with no rashes, no lesions, and no evidence of cellulitis. MS/ Extremity: Pulses equal, no cyanosis. Neurovascular intact. Full, normal range of motion. 08:45 ECG was reviewed by the Attending Physician. 08:45 Abdomen/GI: Inspection: abdomen appears normal, Bowel sounds: normal, Palpation: severe abdominal tenderness, in the epigastric area, Vital Signs: 08:37 Pulse 66; Resp 18; Pulse Ox 100% on R/A; Pain 10/10; iw 08:37 BP 184 / 74; Temp 97.8(TE); aa5 09:40 BP 194 / 73; Pulse 68; Resp 16 S; Pulse Ox 95% on R/A; aa5 10:05 BP 192 / 85; Pulse 70; Resp 16 S; Pulse Ox 95% on R/A; aa5 12:31 Weight 58.97 kg; Height 5 ft. 6 in. ; hb 12:39 BP 171 / 84; Pulse 50; Resp 17; Pulse Ox 99% on R/A; hb 12:31 Body Mass Index 20.98 (58.97 kg, 167.64 cm) hb 08:37 Pain Scale: Adult iw MDM: 08:43 Patient medically screened. ms3 08:48 Differential diagnosis: abnormal EKG, acute myocardial infarction, coronary artery ms3 disease gastritis, pancreatitis, Bowel obstruction. 12:26 HEART Score: History: Slightly Suspicious (0), ECG: Normal (0), Age: > or = 65 years ms3 (2), Risk Factors: 1 or 2 risk factors (1), Troponin: > 1 and < 3 x normal limit (1), Total Score = 4. The patient was given aspirin in the Emergency Department. Data reviewed: vital signs, nurses notes, lab test result(s), EKG, radiologic studies, and as a result, I will admit patient. Consideration of Admission/Observation Patient was admitted/placed on observation. Management of patient was discussed with the following: Hospitalist: Dr Simmons. Liquor Gallery Operator: Dr Maloney. I considered the following discharge prescriptions or medication management in the emergency department Medications were administered in the Emergency Department. See MAR. Independent interpretation of the following test(s) in the Emergency Department EKG: See my EKG interpretation above X-Ray: My interpretation is CXR image reviewed does not reveal PNA, PTX, or pulmonary edema. Care significantly affected by the following chronic conditions: Hypertension. Counseling: I had a detailed discussion with the patient and/or guardian regarding the historical points, exam findings, and any diagnostic results supporting the discharge/admit diagnosis, lab results, radiology results, the need for further work-up and treatment in the hospital. ED course: Discussed labs, EKG, chest x-ray, CT scan with patient and her . Discussed case with Dr. Simmons and he would like patient to be placed on aspirin, Lovenox 1 mg/kg every 12 hours, and Dr. Maloney. Discussed with Dr. Maloney and he will consult on patient.. 04/05 08:43 Order name: Basic Metabolic Panel; Complete Time: 09:28 ms3 04/05 08:43 Order name: CBC with Diff; Complete Time: 09:18 ms3 04/05 08:43 Order name: LFT's; Complete Time: 09:28 ms3 04/05 08:43 Order name: Magnesium; Complete Time: 09:28 ms3 04/05 08:43 Order name: Troponin HS; Complete Time: 09:28 ms3 04/05 08:44 Order name: Lipase; Complete Time: 09:28 ms3 04/05 12:01 Order name: Basic Metabolic Panel EDMS 04/05 12:01 Order name: Basic Metabolic Panel EDMS 04/05 12:01 Order name: CBC with Automated Diff EDMS 04/05 12:01 Order name: CBC with Automated Diff EDMS 04/05 12:01 Order name: Troponin High Sensitivity EDMS 04/05 08:43 Order name: XRAY Chest (1 view); Complete Time: 10:04 ms3 04/05 08:44 Order name: CT Abd/Pelvis - IV Contrast Only; Complete Time: 10:34 ms3 04/05 08:43 Order name: EKG; Complete Time: 08:44 ms3 04/05 12:01 Order name: CONS Physician Consult EDMS 04/05 12:01 Order name: EKG Electrocardiogram EDMS 04/05 12:01 Order name: EKG Electrocardiogram EDMS 04/05 12:01 Order name: EKG Electrocardiogram EDMS 04/05 12:01 Order name: EKG Electrocardiogram EDMS 04/05 08:43 Order name: Cardiac monitoring; Complete Time: 08:50 ms3 04/05 08:43 Order name: EKG - Nurse/Tech; Complete Time: 08:50 ms3 04/05 08:43 Order name: IV Saline Lock; Complete Time: 08:50 ms3 04/05 08:43 Order name: Labs collected and sent; Complete Time: 08:50 ms3 04/05 08:43 Order name: O2 Per Protocol; Complete Time: 08:50 ms3 04/05 08:43 Order name: O2 Sat Monitoring; Complete Time: 08:50 ms3 EC:45 Rate is 65 beats/min. Rhythm is regular. QRS [place] is Normal. LA interval is normal. QRS ms3 interval is normal. QT interval is normal. Clinical impression: NSR w/ Non-specific ST/T Changes. Interpreted by me. Reviewed by me. Administered Medications: 09:00 Drug: Ondansetron IVP 4 mg IVP once; over 2 minutes Route: IVP; Site: left antecubital; aa5 09:18 Follow up: Response: No adverse reaction aa5 09:01 Drug: HYDROmorphone IVP 0.5 mg IVP once Route: IVP; Site: left antecubital; aa5 09:18 Follow up: Response: No adverse reaction aa5 09:18 Follow up: Response: Pain is unchanged, physician notified aa5 09:20 Drug: HYDROmorphone IVP 0.5 mg IVP once Route: IVP; Site: right antecubital; aa5 09:39 Follow up: Response: No adverse reaction; Pain is decreased aa5 09:52 Drug: Aspirin PO Chewable Tablet 324 mg PO once; 81 mg tablets x 4 {Note: Pt has nj1 already taken a baby aspirin at home..} Route: PO; 12:46 Not Given (Pr Dr. Johnson, HR 50ss): [id number] mg IV at calculated rate once hb 14:07 Drug: Enoxaparin Sub-Q 1 mg/kg Sub-Q once Route: Sub-Q; Site: left upper abdomen; hb Disposition Summary: 04/05/23 10:42 Hospitalization Ordered Notes: Hospitalization Status: Inpatient Admission ms3 Provider: Yesi Simmons ms3 Location: Telemetry/MedSurg (Inpatient) ms3 Condition: Stable ms3 Problem: new ms3 Symptoms: are unchanged ms3 Bed/Room Type: Standard ms3 Room Assignment: 204(04/05/23 13:23) dw Diagnosis - Epigastric pain ms3 - Elevated troponin ms3 - Subsequent non-ST elevation (NSTEMI) myocardial infarction ms3 - Essential (primary) hypertension ms3 Forms: - Medication Reconciliation Form ms3 - SBAR form ms3 - Leadership Thank You Letter ms3 Signatures: Dispatcher [employer] Linh Saenz RN RN dw Williams, Irene, RN RN Chloe Baca RN RN aa5 Rosaline Lind RN RN Huey Johnson DO DO ms3 Dania Puga RN RN nj1 Corrections: (The following items were deleted from the chart) 08:40 08:39 Home Meds: aspirin 325 mg Oral TbEC 1 tab once daily; 08:40 08:39 Home Meds: carvedilol 3.125 mg Oral tab 1 tab 2 times per day; 13:23 10:42 ms3 dw
--- NOTE | 2023-04-05 10:43 | ER ---
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 Coronavirus screen: At this time, the client does not indicate any symptoms associated with coronavirus-19. Ebola Screen: Patient negative for fever greater than or equal to 101.5 degrees Fahrenheit, and additional compatible Ebola Virus Disease symptoms Patient denies exposure to infectious person. Patient denies travel to an Ebola-affected area in the 21 days before illness onset. No symptoms or risks identified at this time. Initial Sepsis Screen: Does the patient meet any 2 criteria? No. Patient's initial sepsis screen is negative. Does the patient have a suspected source of infection? No. Patient's initial sepsis screen is negative. Risk Assessment: Do you want to hurt yourself or someone else? Patient reports no desire to harm self or others. 08:37 Method Of Arrival: Wheelchair iw 08:37 Acuity: GREER 3 iw Historical: - Allergies: 08:39 Morphine (Hives); iw - PMHx: 08:39 Colitis; Hypothyroidism; Hypertension; squamous cell carcinoma; iw Screenin:45 [facility] ED Fall Risk Assessment (Adult) History of falling in the last 3 months, aa5 including since admission No falls in past 3 months (0 pts) Confusion or Disorientation No (0 pts) Intoxicated or Sedated No (0 pts) Impaired Gait No (0 pts) Mobility Assist Device Used No (0 pt) Altered Elimination No (0 pt) Score/Fall Risk Level 0 - 2 = Low Risk Oriented to surroundings, Maintained a safe environment, Educated pt \T\ family on fall prevention, incl call for assistance when getting out of bed. Abuse screen: Denies threats or abuse. Nutritional screening: No deficits noted. Tuberculosis screening: No symptoms or risk factors identified. Assessment: 08:38 General: Appears uncomfortable, Behavior is calm, cooperative. Pain: Complains of pain aa5 in epigastric area Pain radiates to back Pain currently is 10 out of 10 on a pain scale. Quality of pain is described as sharp, shooting, Pain began this morning around 0630 Is continuous, Noted to be guarding, moaning. Neuro: Level of Consciousness is awake, alert, obeys commands, Oriented to person, place, time, situation. Cardiovascular: Heart tones S1 S2 present Rhythm is regular. Respiratory: Airway is patent Respiratory effort is even, unlabored, Respiratory pattern is regular, symmetrical. GI: Abdomen is round Bowel sounds present X 4 quads. Abdomen is tender to palpation in epigastric area Patient currently denies diarrhea, nausea, vomiting. : No signs and/or symptoms were reported regarding the genitourinary system. EENT: No signs and/or symptoms were reported regarding the EENT system. Derm: Skin is pink, warm \T\ dry. Musculoskeletal: Range of motion: intact in all extremities. 09:18 Reassessment: Patient is alert, oriented x 3, equal unlabored respirations, skin aa5 warm/dry/pink. Patient states symptoms have not improved. Pain: Pain currently is 10 out of 10 on a pain scale. Noted to be guarding. 09:18 Reassessment: MD was notified of unchanged pain level. . aa5 09:39 Reassessment: Patient states feeling better. Patient states symptoms have improved. Pt aa5 to CT . 10:43 Reassessment: Patient appears in no apparent distress at this time. Patient and/or hb family updated on plan of care and expected duration. Pain level reassessed. Patient is alert, oriented x 3, equal unlabored respirations, skin warm/dry/pink. Vital Signs: 08:37 Pulse 66; Resp 18; Pulse Ox 100% on R/A; Pain 10/10; iw 08:37 BP 184 / 74; Temp 97.8(TE); aa5 09:40 BP 194 / 73; Pulse 68; Resp 16 S; Pulse Ox 95% on R/A; aa5 10:05 BP 192 / 85; Pulse 70; Resp 16 S; Pulse Ox 95% on R/A; aa5 12:31 Weight 58.97 kg; Height 5 ft. 6 in. ; hb 12:39 BP 171 / 84; Pulse 50; Resp 17; Pulse Ox 99% on R/A; hb 12:31 Body Mass Index 20.98 (58.97 kg, 167.64 cm) hb 08:37 Pain Scale: Adult iw ED Course: 08:30 Patient arrived in ED. im 08:38 Patient has correct armband on for positive identification. Placed in gown. Bed in low aa5 position. Call light in reach. Side rails up X2. Adult w/ patient. Client placed on continuous cardiac and pulse oximetry monitoring. NIBP monitoring applied. 08:39 Triage completed. iw 08:43 Huey Johnson DO is Attending Physician. ms3 08:48 Initial lab(s) drawn, by me, sent to lab. Inserted saline lock: 20 gauge in right aa5 antecubital area, using aseptic technique. Blood collected. 09:00 Chloe Baca, RN is Primary Nurse. aa5 09:31 XRAY Chest (1 view) In Process Unspecified. EDMS 09:32 No provider procedures requiring assistance completed. Patient maintains SpO2 aa5 saturation greater than 95% on room air. 09:49 CT Abd/Pelvis - IV Contrast Only In Process Unspecified. EDMS 10:00 Report given to JIM Waggoner. aa5 10:42 Yesi Simmons MD is Hospitalizing Provider. ms3 Administered Medications: 09:00 Drug: Ondansetron IVP 4 mg IVP once; over 2 minutes Route: IVP; Site: left antecubital; aa5 09:18 Follow up: Response: No adverse reaction aa5 09:01 Drug: HYDROmorphone IVP 0.5 mg IVP once Route: IVP; Site: left antecubital; aa5 09:18 Follow up: Response: No adverse reaction aa5 09:18 Follow up: Response: Pain is unchanged, physician notified aa5 09:20 Drug: HYDROmorphone IVP 0.5 mg IVP once Route: IVP; Site: right antecubital; aa5 09:39 Follow up: Response: No adverse reaction; Pain is decreased aa5 09:52 Drug: Aspirin PO Chewable Tablet 324 mg PO once; 81 mg tablets x 4 {Note: Pt has nj1 already taken a baby aspirin at home..} Route: PO; 12:46 Not Given (Pr Dr. Johnson, HR 50ss): [id number] mg IV at calculated rate once hb 14:07 Drug: Enoxaparin Sub-Q 1 mg/kg Sub-Q once Route: Sub-Q; Site: left upper abdomen; hb Outcome: 10:42 Decision to Hospitalize by Provider. ms3 14:23 Patient left the ED. hb Signatures: Dispatcher [employer] EDMS Maryuri Garcia RN RN Chloe Baca RN RN aa5 Rosaline Lind RN RN Huey Johnson DO DO ms3 Dania Puga RN RN nj1 Amira Lees Corrections: (The following items were deleted from the chart) 08:40 08:39 Home Meds: aspirin 325 mg Oral TbEC 1 tab once daily; [facility] 08:40 08:39 Home Meds: carvedilol 3.125 mg Oral tab 1 tab 2 times per day; [facility] 09:25 09:22 HYDROmorphone IVP 0.5 mg IVP in right antecubital aa5 aa5 09:53 09:52 Aspirin PO Chewable Tablet 324 mg PO nj1 nj1
[2023-04-05] MEDS ORDERED: ENOXAPARIN 60 MG/0.6 ML SQ ONE (14:13)
[2023-04-05 15:45] VITALS: BMI 20.9
[2023-04-05] MEDS: MEPERIDINE HCL 25 MG/ML SYR IV PRN ×2 (15:50→20:26)
[2023-04-05] MEDS ORDERED: INFLUENZA VACCINE (for 6+ mo) 0.5 ML DOSE IMVAC ONE (17:00)
[2023-04-05] MEDS ORDERED: AMLODIPINE 5 MG TAB PO ONE (17:59)
[2023-04-05] MEDS: NITROGLYCERIN 1 GM PKT TD SCH (19:00)
--- NOTE | 2023-04-05 20:04 | CON ---
Date of Consultation: 04/05/2023 Reason For Consultation: Chest pain. History Of Present Illness: 78-year-old female, past medical history of hypertension, hypothyroidism , who presented with severe abdominal pain, epigastric, radiates to both sides of the lower chest, co nstant and sharp. No nausea. No vomiting. No diaphoresis, and troponin initially was borderline el evated. She does not have any history of cardiac disease, but she is an active smoker. Past Medical History: As outlined above in the HPI. Medications: Refer to reconciliation sheet for detailed list. Allergies: NO KNOWN DRUG ALLERGIES. Family History: No premature coronary artery disease or cancer. Social History: She is an active smoker. Does not drink, use any drugs. Review of Systems: All systems were reviewed and they were negative except what mentioned in HPI. Physical Examination: Vital Signs: Reviewed. Head and Neck: Pupils are equal, reactive to light. Intact eye movements. No JVD. No cervical lym phadenopathy. Neck is supple. Thyroid is not enlarged. Lungs: Clear to auscultation bilaterally. No rhonchi, wheezing, or crackles. No accessory muscle u se. Heart: Regular rate and rhythm. No extra sounds. Abdomen: Soft, nontender. Bowel sounds positive. No organomegaly. No masses or hernia. No rigidi ty or rebound. Extremities: No edema, clubbing, or cyanosis. Intact pulses. Skin: No rash. No nodule. Neurologic: Alert, awake, oriented x3. No acute focal deficits appreciated. Investigations: Troponin 84 and then 93, BUN 18, creatinine 0.83, and hemoglobin is 10.0. Assessment And Recommendations: 1.Chest pain. Two sets of cardiac enzymes are borderline. She is very tender in the epigastric are a, likely the GI tract issue. However, trend troponin at least once and if it continues to be at the low level, then obtain an echocardiogram tomorrow and recommend GI evaluation. 2.Epigastric pain. Possible pancreatitis versus peptic ulcer disease. She is very tender. Recomme nd GI evaluation. 3.Hypertension. Blood pressure is elevated probably due to severe pain. Continue home medications and use IV hydralazine as needed or labetalol for blood pressure control. SR/MODL Voice ID: [id number] Report ID: [id number]
[2023-04-05] MEDS: ENOXAPARIN 60 MG/0.6 ML SQ SCH (20:26)
[2023-04-05] MEDS: cloNIDine HCL 0.1 MG TAB PO PRN (20:27)
[2023-04-05] MEDS: ONDANSETRON 4 MG/2 ML VIAL IV PRN (20:27)
--- NOTE | 2023-04-05 21:37 | HP ---
Date of Admission: 04/05/2023 Chief Complaint: Abdominal pain. History Of Present Illness: This is a 78-year-old very pleasant female patient, who woke up around 6:45 a.m. today with epigastric abdominal pain radiating to her back. Pain has been continuous since it started and denies any nausea, vomiting, heartburn, or indigestion. No fever or chills. No shortness of breath. After she came into emergency room, she was evaluated and admitted to the hospital. I saw her this evening. She was in the room. Her was with her and the patient reported that her pain is on pain scale 0-10, it is at 8/10. She did try to eat something this evening and after that, her pain got worse. Allergies: NO KNOWN ALLERGIES. Review of Systems: GI: As mentioned above. All other systems reviewed and negative. Medications: Atorvastatin 20 mg daily at bedtime; amlodipine 5 mg two times a day as needed for systolic blood pressure more than 140; aspirin 81 mg daily; budesonide 3 mg two times a day; carvedilol 25 mg, take 1 tablet 2 times a day; ferrous sulfate 325 mg daily; hydralazine 50 mg, takes one tablet in the morning and afternoon and two tablets at bedtime; Levsin 0.125 mg one tablet under tongue 3 times a day as needed; levothyroxine 112 mcg p.o. daily; losartan 100 mg p.o. daily; Lialda 1.2 g two times a day; and omeprazole 40 mg daily. Past Medical History: Significant for hypothyroidism, impaired fasting glucose, hypertension, hyperlipidemia, collagenous colitis, diverticulosis, gastroesophageal reflux disease, basal cell carcinoma, and anemia due to chronic GI blood loss. Past Surgical History: Cholecystectomy, partial thyroidectomy involving right lobe, and partial hysterectomy. Family History: Father , had heart disease. Mother had congestive heart failure and diabetes. Social History: Positive for smoking. Use of alcohol negative. Physical Examination: Vital Signs: This evening, temperature 97, pulse 58, respiratory rate 16, blood pressure 198/64, oxygen saturation 97%. Height 5 feet 6 inches, weight 130 pounds. General: Awake, alert, oriented, not in distress. HEENT: Head atraumatic, normocephalic. Conjunctivae nonerythematous. Sclerae white. Mouth, no thrush or edema noted. Ears/Nose, no mass, lesion, discharge noted. Neck: Supple. No JVD, lymph nodes, bruit, thyromegaly noted. Lungs: Bilateral good equal air entry. Clear to auscultation. No rhonchi. No rales. Heart: Normal heart sounds, no murmur or gallop. Abdomen: Soft. Bowel sounds normal. No guarding, rigidity, or distention. Presence of tenderness in the epigastric region. No rebound tenderness. No hepatosplenomegaly. No bruit. Extremities: No leg edema. No calf tenderness. Skin: No rash, ulcer, cellulitis. Lymphatics: No lymph node enlargement in neck, supraclavicular, infraclavicular region. Neuro: No focal neurological deficit. Chest: Unremarkable. External Genitalia: Deferred. Rectal: Deferred. Laboratory Data: White count 9.6, hemoglobin 11, platelets 327. Sodium 136, potassium 3.6, chloride 103, bicarb 28, BUN 18, creatinine 0.83, glucose 94. Liver function tests unremarkable. Initial troponin 84.9, second troponin 93.9. Lipase 17. CAT scan of abdomen and pelvis with contrast shows significant biliary dilatation, which appears moderately improved compared to prior study, small subcapsular enhancing lesion in the liver parenchyma, right-sided adrenal mass, and right posterior pelvic cystic mass and diverticulosis. Chest x-ray, no acute cardiopulmonary changes. Impression: 1. Pko-TS-bcxwkzsrr myocardial infarction. 2. Abdominal pain, epigastric. 3. Gastroesophageal reflux disease. 4. Collagenous colitis. 5. Hypothyroidism. 6. Hypertension. 7. Hyperlipidemia. 8. Diverticulosis. 9. Liver mass. 10. Right adrenal adenoma. 11. Impaired fasting glucose. Plan: We will go ahead and admit the patient to hospital for further evaluation and management of this problem. The patient is appropriate for inpatient and is expected to spend 2 midnights in hospital. We will start the patient on aspirin and Lovenox as per order. Consult php wordpress developer. Get serial cardiac enzymes. For hypertension, we will go ahead and continue antihypertensive medication per order. Monitor blood pressure and adjust antihypertensive medication if necessary. For hyperlipidemia, we will continue her statin therapy per order. Abnormality noted on the CAT scan was reviewed with her and we will need to have further testing done on outpatient basis. I will see her tomorrow morning for followup. We will start her on IV Protonix per order and details of plan of treatment discussed with her. PRITI/SUSI Voice ID: [id number] MTDD
[2023-04-05] MEDS ORDERED: SODIUM CHLORIDE 0.9% 10ML INJ IV PRN (21:59)
[2023-04-05] MEDS: PANTOPRAZOLE 40 MG INJ IVP SCH (22:46)
[2023-04-06] MEDS: NITROGLYCERIN 1 GM PKT TD SCH ×4 (00:28→17:24)
[2023-04-06] MEDS: MEPERIDINE HCL 25 MG/ML SYR IV PRN ×4 (01:36→15:36)
[2023-04-06 03:06] LABS: Absolute Lymphocytes (CBC) 2.3 K/uL (0.7-4.9); Hematocrit 28.5 % (36.0-45.0); Lymphocytes % 19.5 % (15.3-44.8); MCV 93.3 fL (80-100); Platelets 262 thou/uL (152-406); RBC Red Blood Cell Count 3.06 M/uL (3.86-4.86)
[2023-04-06 03:20] LABS: Potassium 3.3 mEq/L (3.5-5.1)
[2023-04-06] MEDS: cloNIDine HCL 0.1 MG TAB PO PRN ×2 (04:36→17:19)
[2023-04-06] MEDS: PANTOPRAZOLE 40 MG INJ IVP SCH (08:11)
[2023-04-06] MEDS: ASPIRIN EC 81 MG TAB PO SCH (08:11)
[2023-04-06] MEDS: ENOXAPARIN 60 MG/0.6 ML SQ SCH ×2 (08:14→20:09)
--- NOTE | 2023-04-06 16:57 | EKG ---
Test Date: 2023-04-06 Test Time: 09:14:59 Plc Programmer: XAVIER MEASUREMENT RESULTS: Intervals: Rate: 66 MI: 150 QRSD: 90 QT: 438 QTc: 459 [place]: P: 71 MI: 150 QRS: -30 T: 53 INTERPRETIVE STATEMENTS: Normal sinus rhythm Left axis deviation Abnormal ECG Compared to ECG 04/05/2023 08:39:40 Left-axis deviation now present Junctional rhythm no longer present Electronically Signed On 04-06-23 16:55:48 CDT by Hiram Maloney
--- NOTE | 2023-04-06 17:01 | EKG ---
Test Date: 2023-04-05 Test Time: 08:39:40 Air Intercept Controller: ARAMIS MEASUREMENT RESULTS: Intervals: Rate: 65 OR: QRSD: 86 QT: 434 QTc: 451 [place]: P: OR: QRS: -9 T: 59 INTERPRETIVE STATEMENTS: Sinus rhythm Normal ECG Electronically Signed On 04-06-23 16:57:27 CDT by Hiram Maloney
--- NOTE | 2023-04-06 18:05 | PN ---
Date of Progress Note: 04/06/2023 Subjective: Seen by bedside. Doing clinically well. No further chest pain. Review of Systems: No chest pain. Has abdominal pain. No nausea, vomiting, or diarrhea. No dysuria, polyuria, or urin kimberley urgency. No skin rash or headache. All other systems were reviewed, they were negative. Physical Examination: Vital Signs: Reviewed. Head and Neck: Pupils are equal, reactive to light. Intact eye movements. No JVD. No cervical lym phadenopathy. Neck is supple. Thyroid is not enlarged. Lungs: Clear to auscultation bilaterally. No rhonchi, wheezing, or crackles. No accessory muscle u se. Heart: Regular rate and rhythm. No extra sounds. Abdomen: Soft, nontender. Bowel sounds positive. No organomegaly. No masses or hernia. No rigidi ty or rebound. Extremities: No edema, clubbing, or cyanosis. Intact pulses. Skin: No rash. No nodule. Neurologic: Alert, awake, oriented x3. No acute focal deficits appreciated. Investigations: Troponin peaked at 102, BUN 18, creatinine 0.74, hemoglobin is 9.5. Assessment And Recommendations: 1.Chest pain. This is likely not cardiac. The pain is in the stomach. Likely, she has intraabdomi nal pathology. Troponin is borderline likely due to demand. On echo, her ejection fraction is javier l and no wall motion abnormalities. We will plan for outpatient stress test when she is clinically s table. For the present time, cardiology will sign off and there is no need for a full anticoagulation just baby aspirin and I recommend a statin. 2.Abdominal pain and workup is in the process. SR/MODL Voice ID: [id number] Report ID: [id number]
[2023-04-06] MEDS: HYDROMORPHONE HCL 1 MG/ML INJ IV PRN ×2 (18:08→22:07)
--- NOTE | 2023-04-06 22:47 | PN ---
Date of Progress Note: 04/06/2023 Subjective: The patient was seen this morning for followup. No new complaints or problems reported by the patient. She continues to have epigastric abdominal pain. No nausea. No vomiting. No heart burn or indigestion. Her pain gets worse after she tries to eat anything. She is getting Demerol fo r her pain, but it is not helping her. Objective: Vital Signs: Reviewed. HEENT: Unremarkable. Lungs: Clear to auscultation. Heart: Sounds normal. Abdomen: Soft. Bowel sounds normal. No guarding, rigidity, distention, but presence of epigastric tenderness, unchanged from yesterday. No rebound tenderness. Extremities: No leg edema. Impression: 1.Epigastric abdominal pain. 2.Ejs-WU-cslklvwi myocardial infarction. 3.Hypertension. Plan: We will go ahead and continue current medications. Continue current antihypertensive medicati on. Consult Dr. Rao, and I did call and communicate with him, and discussed details with him, and he is planning to do EGD tomorrow. We will discontinue Demerol since it is not helping. The patien rocio received Dilaudid in the emergency room. It did help her and I have started that for her today for pain control. 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 I have informed her that on the CAT scan that we have done during this hospital admission, we have seen 2 different small masses in the liver and she shoul d follow up with the specialist. PRITI/MODL Voice ID: [id number] Report ID: [id number]
[2023-04-07] MEDS: NITROGLYCERIN 1 GM PKT TD SCH ×4 (00:14→17:26)
[2023-04-07] MEDS: HYDROMORPHONE HCL 1 MG/ML INJ IV PRN ×5 (02:21→21:26)
[2023-04-07] MEDS: ONDANSETRON 4 MG/2 ML VIAL IV PRN ×2 (02:26→21:31)
[2023-04-07] MEDS: cloNIDine HCL 0.1 MG TAB PO PRN (03:55)
[2023-04-07] MEDS: ASPIRIN EC 81 MG TAB PO SCH (07:59)
[2023-04-07] MEDS: ENOXAPARIN 60 MG/0.6 ML SQ SCH (07:59)
[2023-04-07] MEDS: PANTOPRAZOLE 40 MG INJ IVP SCH ×2 (08:08→20:43)
--- NOTE | 2023-04-07 08:13 | ECHO ---
HEIGHT: 5 ft 6 in WEIGHT: 130 lb 0 oz DATE OF STUDY: 04/06/[address]: Hiram Maloney 2-DIMENSIONAL: YES M.MODE: YES DOPPLER: YES COLOR FLOW: YES TDS: PORTABLE: YES DEFINITY: BUBBLE STUDY: DIAGNOSIS: CHEST PAIN CARDIAC HISTORY: CATHERIZATION: NO SURGERY: NO PROSTHETIC VALVE: NO PACEMAKER: NO MEASUREMENTS (cm) DIASTOLIC (NORMALS) SYSTOLIC (NORMALS) IVSd 1.2 (0.6-1.2) LA Diam 2.5 (1.9-4.0) LVEF 55% LVIDd 4.6 (3.5-5.7) LVIDs 3.5 (2.0-3.5) %FS 23% LVPWd 1.3 (0.6-1.2) Ao Diam 2.9 (2.0-3.7) 2 DIMENSIONAL ASSESSMENT: RIGHT ATRIUM: NORMAL LEFT ATRIUM: NORMAL RIGHT VENTRICLE: NORMAL LEFT VENTRICLE: LEFT VENTRICULAR HYPERTROPHY TRICUSPID VALVE: MILD TRICUSPID REGURGITATION MITRAL VALVE: MITRAL ANNULAR CALCIFICATION (MODERATE) PULMONIC VALVE: NORMAL AORTIC VALVE: NORMAL PERICARDIAL EFFUSION: NONE AORTIC ROOT: NORMAL LEFT VENTRICULAR WALL MOTION: NORMAL DOPPLER/COLOR FLOW: MILD TRICUSPID REGURGITATION, MITRAL REGURGITATION COMMENTS: 1. NORMAL LEFT VENTRICULAR EJECTION FRACTION 55-60% 2. NORMAL WALL MOTION 3. MILD CONCENTRIC LEFT VENTRICULAR HYPERTROPHY 4. GRADE I DIASTOLIC DYSFUNCTION 5. MITRAL ANNULAR CALCIFICATION WITH MILD MITRAL REGURGITATION 6. MILD TRICUSPID REGURGITATION TECHNOLOGIST: SHAHIDA VITALE
[2023-04-07 09:07] LABS: Absolute Lymphocytes (CBC) 2.1 K/uL (0.7-4.9); Hematocrit 34.4 % (36.0-45.0); Lymphocytes % 17.7 % (15.3-44.8); MCV 93.3 fL (80-100); Platelets 241 thou/uL (152-406); RBC Red Blood Cell Count 3.69 M/uL (3.86-4.86)
[2023-04-07 09:20] LABS: Magnesium 1.9 mg/dL (1.6-2.4); Potassium 3.1 mEq/L (3.5-5.1)
[2023-04-07 09:23] LABS: Troponin High Sensitivity 100.1 pg/mL (<58.9)
[2023-04-07] MEDS ORDERED: NA CHLORIDE 0.9% 500 ML ONE (13:30)
--- NOTE | 2023-04-07 14:08 | PN ---
Date of Progress Note: 04/07/2023 Subjective: Patient was seen this morning for followup. Yesterday, Demerol was discontinued and she was started on Dilaudid as Demerol was not helping to control her pain and this morning she reports that Dilaudid is helping very well. She has some nausea, but no vomiting. Objective: Vital Signs: Reviewed. HEENT: Unremarkable. Lungs: Clear to auscultation. Heart: Sounds normal. Abdomen: Soft. Bowel sounds normal. No guarding, rigidity, distention. Mild epigastric tenderness. Extremities: No leg edema. Laboratory Data: White count 11.8, hemoglobin 11.4, and platelets 241. Chemistry shows potassium 3.1 and troponin 100.1. Impression: 1. Abdominal pain, epigastric. 2. Ibr-JD-myibdflf myocardial infarction. 3. Hypertension. 4. Hypokalemia. Plan: This morning's chemistry result is pending and troponin is pending. I have communicated details with Dr. Maloney. Her echocardiogram has shown normal ejection fraction, normal wall motion. Has a grade 1 diastolic dysfunction and mild left ventricular hypertrophy. Dr. Rao is planning to do EGD on her today. She got last dose of Lovenox yesterday evening and I have discontinued her Lovenox as of this morning and I have communicated with Dr. Maloney regarding EGD and he has given me his okay for patient to undergo EGD and I have notified Dr. Rao about patient's abnormal cardiac enzymes as well as being on Lovenox and last dose was yesterday. So all those details were discussed with Dr. Rao as well. I will see her tomorrow for followup. Replace potassium as per electrolyte replacement protocol. PRITI/MODL Voice ID: [id number] Report ID: [id number] MTDD
[2023-04-07] MEDS ORDERED: propofoL 200 MG/20 ML VIAL IV ONE (14:37)
[2023-04-07] MEDS ORDERED: LIDOCAINE 1% MPF 5 ML VIAL ONE (14:38)
[2023-04-07] MEDS ORDERED: NA CHLORIDE 0.9% 1,000 ML ONE (14:59)
[2023-04-07] MEDS ORDERED: EPHEDRINE SULF 50 MG/ML VIAL ONE (15:14)
[2023-04-07] MEDS ORDERED: SODIUM CHLORIDE 0.9% 10ML INJ IV PRN (15:44)
[2023-04-08] MEDS: cloNIDine HCL 0.1 MG TAB PO PRN ×2 (00:51→23:55)
[2023-04-08] MEDS: NITROGLYCERIN 1 GM PKT TD SCH ×5 (00:53→17:49)
[2023-04-08] MEDS: HYDROMORPHONE HCL 1 MG/ML INJ IV PRN ×4 (03:18→21:50)
[2023-04-08] MEDS: PANTOPRAZOLE 40 MG INJ IVP SCH ×2 (08:04→22:01)
[2023-04-08] MEDS: ASPIRIN EC 81 MG TAB PO SCH (08:14)
[2023-04-08] MEDS ORDERED: BISACODYL 10 MG RECTAL SUPP PR ONE (10:01)
[2023-04-08 10:57] LABS: Magnesium 1.8 mg/dL (1.6-2.4)
[2023-04-08] MEDS: MESALAMINE 400 MG CAPSULE.DR PO SCH ×5 (13:00→21:46)
[2023-04-08] MEDS ORDERED: HOME MED 1 EA UNK (Mesalamine [Mesalamine] 1.2 GM Tablet.Dr) PO SCH (13:00)
--- NOTE | 2023-04-08 13:06 | PN ---
Date of Progress Note: 04/08/2023 Subjective: Patient was seen this morning for followup. No new complaints or problems reported by t he patient. Patient has not had a bowel movement since she has been in the hospital. She still has epigastric abdominal pain, well controlled with current pain medication and she was trying to have he r clear liquid diet this morning when I saw her. Her oral intake of food has been very low during th is hospitalization. She had an EGD done yesterday and findings were discussed with Dr. Rao, who i nformed me that patient has gastritis and gastric ulcer near the antrum and he was concerned about po ssibility of malignant ulcer, so he has taken appropriate biopsies. He also suggested to increase th e dose of Protonix from 40 mg once a day to twice a day, which was done yesterday by him. I have dis cussed all these details with the patient this morning as well. Objective: Vital Signs: Reviewed. HEENT: Unremarkable. Lungs: Clear to auscultation. Heart: Sounds normal. Abdomen: Soft. Bowel sounds normal. No guarding, rigidity, distention. Presence of mild epigastri c tenderness. Extremities: No leg edema. Impression: 1.Epigastric abdominal pain. 2.Constipation. 3.Collagenous colitis. 4.Hypertension. 5.Ewu-IP-fxeajyntj myocardial infarction. Plan: We will go ahead and continue current IV Protonix. Continue pain medications. I have advised the patient to minimize use of her pain medication as much as she can because that is definitely con tributing to her constipation problem. Dulcolax rectal suppository 1 time dose was ordered today. A mbulation was encouraged and we will go ahead and plan to possibly discharge her to go home either to [place] or day after tomorrow depending on her condition. I have advised her to have a followup at [facility] upon discharge for abnormal CAT scan of the abdomen that we [facility] showing 2 small liver lesions. Patient says that when she had surgery done last year at [facility], they told her that they did not find any evidence of cancer, but at the same time, she tells me today that she was told to have a followup with oncologist and she did not follow up. So, I have asked her that she should definitely have a followup with oncologist at [facility] and if she has trouble getting that appointment as she has never seen oncologist, then she should c all her inserter operator or a surgeon at [facility] that she had seen and try to have those phy sician help her to get the appropriate people for further evaluation. PRITI/SUSI Voice ID: [id number] Report ID: [id number]
[2023-04-08] MEDS ORDERED: BUDESONIDE 9 MG PO SCH (21:00)
[2023-04-08] MEDS: ATORVASTATIN 20 MG TAB PO SCH (21:46)
[2023-04-08] MEDS: BUDESONIDE, MICRONIZED 3 MG CAP PO SCH (21:47)
[2023-04-08] MEDS: ONDANSETRON 4 MG/2 ML VIAL IV PRN (21:50)
[2023-04-08] MEDS ORDERED: POTASSIUM 25 MEQ EFFERV TAB PO ONE (22:58)
[2023-04-09] MEDS: NITROGLYCERIN 1 GM PKT TD SCH ×5 (00:01→23:59)
[2023-04-09] MEDS: HYDROMORPHONE HCL 1 MG/ML INJ IV PRN ×3 (02:34→16:47)
[2023-04-09 03:39] LABS: Potassium 3.9 mEq/L (3.5-5.1)
[2023-04-09] MEDS: LEVOTHYROXINE SOD 0.1 MG TAB PO SCH (06:45)
[2023-04-09] MEDS: ASPIRIN EC 81 MG TAB PO SCH (08:53)
[2023-04-09] MEDS: carvediloL 25 MG TAB PO SCH ×2 (08:58→20:06)
[2023-04-09] MEDS: HYDRALAZINE HCL 25 MG TABLET PO SCH ×3 (08:58→20:07)
[2023-04-09] MEDS: LOSARTAN POTASSIUM 50 MG TABLET PO SCH (08:59)
[2023-04-09] MEDS: BUDESONIDE, MICRONIZED 3 MG CAP PO SCH ×2 (09:00→20:06)
[2023-04-09] MEDS ORDERED: HOME MED 1 EA UNK (Losartan Potassium [Cozaar] 100 MG Tablet) PO SCH (09:00)
[2023-04-09] MEDS: PANTOPRAZOLE 40 MG INJ IVP SCH ×2 (09:00→20:07)
[2023-04-09] MEDS ORDERED: POTASSIUM 25 MEQ EFFERV TAB PO ONE (09:00)
[2023-04-09] MEDS: MESALAMINE 400 MG CAPSULE.DR PO SCH ×4 (09:02→20:06)
[2023-04-09] MEDS ORDERED: BISACODYL 10 MG RECTAL SUPP PR ONE (09:22)
[2023-04-09] MEDS: HYOSCYAMINE SULF 0.125 MG TAB PO SCH ×3 (09:28→20:06)
[2023-04-09 09:29] LABS: Absolute Lymphocytes (CBC) 0.7 K/uL (0.7-4.9); Hematocrit 28.7 % (36.0-45.0); MCV 92.4 fL (80-100); MPV 7.8 fL (7.6-11.3); Platelets 231 thou/uL (152-406)
--- NOTE | 2023-04-09 09:53 | RAD REPORT ---
EXAM DESCRIPTION: RAD - Chest Single View - 04/09/2023 9:41 am CLINICAL HISTORY: fever COMPARISON: <Comparisons> FINDINGS: Lines: None. Lungs: Opacity at the left lung base. Pleural: Interval development of a small moderate left pleural effusion. Cardiac: The heart size is within normal limits. Mediastinum: Within normal limits. Bones: No acute fractures. Other: None IMPRESSION: New airspace disease at the left lung base which may represent a combination of atelecta sis, pneumonia, and pleural fluid.
[2023-04-09 10:05] LABS: Specific Gravity 1.009 (1.005-1.030); Transitional Epithelial <5 /HPF (None Seen); Urine Bacteria >50 /HPF (<20); Urine Bilirubin NEGATIVE (Negative); Urine Blood Negative (Negative); Urine Clarity Extremely Turbid (Clear); Urine Color Light-Yellow (Yellow); Urine Glucose NEGATIVE (Negative); Urine Mucus Slight /HPF (None Seen); Urine Protein TRACE (Negative); Urine Urobilinogen Normal (Normal); Urine pH 5.5 (5.0-7.0)
--- NOTE | 2023-04-09 10:12 | PN ---
Date of Progress Note: 04/09/2023 Subjective: The patient was seen this morning for followup. No new complaints or problems reported, except ongoing abdominal pain. She had a small bowel movement after Dulcolax rectal suppository yes terday. She is still on clear liquid diet. This morning, she had low-grade fever with temperature o f 99.5 degrees Fahrenheit. Objective: Vital Signs: Reviewed. HEENT: Examination unremarkable. Lungs: Clear to auscultation. No wheezing. No rales. Heart: Sounds normal. Abdomen: Soft. Bowel sounds normal. No guarding, rigidity, distention. Presence of mild epigastri c tenderness unchanged from yesterday. No rebound tenderness. Extremities: No leg edema. Laboratory Data: Sodium 128, potassium 3.9, chloride 97, bicarb 25, BUN 12, creatinine 0.78, glucose 110. Impression: 1.Epigastric abdominal pain. 2.Fever. 3.Gastric ulcer. 4.Hypertension. 5.Hyponatremia. Plan: We will go ahead and get a CBC done on her. Get urinalysis, urine culture, chest x-ray. Then , we will decide about empiric antibiotics. I have advised her to try to lower use of her narcotic p ain medication and ambulation was encouraged. We will go ahead and give another dose of Dulcolax rec sally suppository and will add Levsin 0.125 mg 3 times a day. I have asked nursing staff to contact Dr. Rao to see if we can advance he r diet from clear liquid diet. PRITI/MODL Voice ID: [id number] Report ID: [id number]
[2023-04-09] MEDS: SIMETHICONE 125 MG TAB PO SCH ×2 (14:36→20:33)
[2023-04-09] MEDS: CEFTRIAXONE 1,000 MG in NA CHLORIDE 0.9% 50 ML IVPB SCH ×2 (14:39→20:07)
[2023-04-09] MEDS: NA CHLORIDE 0.9% 1,000 ML IV SCH (14:41)
--- NOTE | 2023-04-09 17:54 | P.PN ---
Subjective Date of Service: 04/09/23 Chief Complaint: LEANNE/LLQ pain, nausea, constipation, abn CT abd -> new liver lesions Subjective: Improving (2 large bowel movements today with moderate relief of abdominal pain. On Protonix bid for PUD. New probable pneumonia in LLL with increased WBC from 11.8 to 14.6 with polys from 69 to 81%.), New changes (Hyponatremia worsening from 136 to 128 with new pneumonia and long tobacco history. IV antibiotics started today and on incentive spirometry.) Review of Systems 10-point ROS is otherwise unremarkable General: Weakness, Malaise Respiratory: Shortness of Breath (mild) Gastrointestinal: Abdominal Pain (Improved.) Physical Examination - Vital Signs Temperature: 100.1 F Blood Pressure: 165/74 Pulse: 78 Respirations: 18 Pulse Ox (%): 92 - Physical Exam General: Alert, In no apparent distress, Oriented x3, Cooperative HEENT: Atraumatic, Normocephalic, PERRLA, EOMI Neck: Supple Respiratory: Normal air movement Cardiovascular: Normal pulses, Regular rate/rhythm Gastrointestinal: Non-distended, No rebound, No guarding, Tenderness (Improved.) Neurological: Normal speech Assessment And Plan - Current Problems (Diagnosis) (1) Nausea Current Visit: Yes Status: Acute (2) Abnormal abdominal CT scan Current Visit: Yes Status: Acute (3) Liver lesion Current Visit: Yes Status: Acute (4) Epigastric abdominal pain Current Visit: No Status: Acute (5) LLQ abdominal pain Current Visit: No Status: Acute (6) LLL pneumonia Current Visit: Yes Status: Acute - Plan REC: 1) continue IV antibiotics 2) Miralax 3) continue Protonix bid 4) consider colonoscopy 5) check AFP
[2023-04-09] MEDS: FAMOTIDINE 20 MG TAB PO SCH (20:06)
[2023-04-09] MEDS: ATORVASTATIN 20 MG TAB PO SCH (20:06)
[2023-04-10] MEDS: HYDROMORPHONE HCL 1 MG/ML INJ IV PRN ×2 (00:50→21:58)
[2023-04-10] MEDS: SIMETHICONE 125 MG TAB PO SCH ×3 (00:59→21:49)
[2023-04-10 03:16] LABS: Absolute Lymphocytes (CBC) 0.8 K/uL (0.7-4.9); Hematocrit 25.6 % (36.0-45.0); Lymphocytes % 5.2 % (15.3-44.8); MCV 92.1 fL (80-100); MPV 7.5 fL (7.6-11.3); Platelets 246 thou/uL (152-406); RBC Red Blood Cell Count 2.78 M/uL (3.86-4.86)
[2023-04-10] MEDS: NA CHLORIDE 0.9% 1,000 ML IV SCH ×3 (03:20→16:41)
[2023-04-10 03:45] LABS: Magnesium 1.5 mg/dL (1.6-2.4); Potassium 3.6 mEq/L (3.5-5.1)
[2023-04-10] MEDS ORDERED: Magnesium Sulfate 2gm IVPB 2 G/50 ML BAG IV ONE (04:29)
[2023-04-10] MEDS: LEVOTHYROXINE SOD 0.1 MG TAB PO SCH (06:05)
[2023-04-10] MEDS: NITROGLYCERIN 1 GM PKT TD SCH ×3 (06:05→17:44)
[2023-04-10 07:43] LABS: Thyroid Stimulating Hormone 1.33 uIU/mL (0.358-3.740)
[2023-04-10] MEDS: HYOSCYAMINE SULF 0.125 MG TAB PO SCH ×3 (09:00→21:47)
[2023-04-10] MEDS ORDERED: POTASSIUM CL SA 10 MEQ TAB PO ONE (09:00)
[2023-04-10] MEDS: carvediloL 25 MG TAB PO SCH ×2 (09:00→21:49)
[2023-04-10] MEDS: MESALAMINE 400 MG CAPSULE.DR PO SCH ×4 (09:00→21:48)
[2023-04-10] MEDS: BUDESONIDE, MICRONIZED 3 MG CAP PO SCH ×2 (09:00→21:48)
[2023-04-10] MEDS: HYDRALAZINE HCL 25 MG TABLET PO SCH ×3 (09:00→21:49)
[2023-04-10] MEDS: PANTOPRAZOLE 40 MG INJ IVP SCH ×2 (09:01→21:48)
[2023-04-10] MEDS: LOSARTAN POTASSIUM 50 MG TABLET PO SCH (09:01)
[2023-04-10] MEDS: ASPIRIN EC 81 MG TAB PO SCH (09:01)
[2023-04-10] MEDS: CEFTRIAXONE 1,000 MG in NA CHLORIDE 0.9% 50 ML IVPB SCH ×2 (09:01→21:49)
[2023-04-10] MEDS: cloNIDine HCL 0.1 MG TAB PO PRN (16:41)
[2023-04-10] MEDS: FAMOTIDINE 20 MG TAB PO SCH (21:48)
[2023-04-10] MEDS: ATORVASTATIN 20 MG TAB PO SCH (21:49)
--- NOTE | 2023-04-10 23:14 | PN ---
Date of Progress Note: 04/10/2023 Subjective: Patient was seen this morning for followup. No new complaints, problems reported by her . She reported that her abdominal pain is somewhat better. She did ambulate yesterday with her husb and. She also reports having small bowel movement yesterday. Objective: Vital Signs: Reviewed. HEENT: Unremarkable. Lungs: Clear to auscultation. Heart: Sounds normal. Abdomen: Soft. Bowel sounds normal with presence of tenderness in epigastric region, unchanged. No rebound tenderness. Extremities: No leg edema. Laboratory Data: White count 16.3, hemoglobin 8.8, platelets 246. Sodium 127, potassium 3.6, chlori de 97, bicarb 25, BUN 12, creatinine 0.78, glucose 124, magnesium 1.5. Impression: 1.Abdominal pain. 2.Hyponatremia. 3.Hypertension. 4.Hypokalemia. 5.Hypomagnesemia. 6.Anemia. 7.Urinary tract infection. 8.Pneumonia. Yesterday's chest x-ray and urinalysis reviewed. The patient is on ceftriaxone. White count has eriberto e up slightly today compared to yesterday, but her temperature has come down and overall she feels sl ightly better today compared to yesterday, so we will continue current antibiotics, continue IV fluid . We will get a TSH and lipid profile. Repeat blood work tomorrow morning and replace electrolytes per protocol. Ambulation was encouraged and I will see her tomorrow for followup. PRITI/MODL Voice ID: [id number] Report ID: [id number]
[2023-04-11] MEDS: NITROGLYCERIN 1 GM PKT TD SCH ×4 (01:16→17:07)
[2023-04-11] MEDS: ACETAMINOPHEN 500 MG TAB PO PRN (03:08)
[2023-04-11 04:50] LABS: Absolute Lymphocytes (CBC) 0.7 K/uL (0.7-4.9); Hematocrit 25.2 % (36.0-45.0); Lymphocytes % 6.7 % (15.3-44.8); MCV 92.6 fL (80-100); MPV 7.4 fL (7.6-11.3); Platelets 251 thou/uL (152-406); RBC Red Blood Cell Count 2.72 M/uL (3.86-4.86)
[2023-04-11 05:20] LABS: Bilirubin Total 0.2 mg/dL (0.2-1.0); Potassium 3.7 mEq/L (3.5-5.1); Protein, Total 5.5 g/dL (6.4-8.2)
[2023-04-11] MEDS: LEVOTHYROXINE SOD 0.1 MG TAB PO SCH (05:29)
[2023-04-11] MEDS: NA CHLORIDE 0.9% 1,000 ML IV SCH ×2 (05:33→17:12)
[2023-04-11] MEDS ORDERED: MAGNESIUM HYDROXIDE 8% 30 ML PO ONE ×2 (08:10→12:33)
--- NOTE | 2023-04-11 08:34 | RAD REPORT ---
EXAM DESCRIPTION: Mari Dave And Dodie (2 Views)04/11/2023 8:24 am CLINICAL HISTORY: Fever COMPARISON: April 09, 2023 FINDINGS: 9 centimeter opacity left lower hemithorax. Right lung appears clear. Heart is mildly enlarged IMPRESSION: 9 centimeter opacity left lower hemithorax. This probably represents a combination of p neumonia and pleural effusion
[2023-04-11] MEDS ORDERED: POTASSIUM CL SA 10 MEQ TAB PO ONE (09:00)
[2023-04-11] MEDS: HYDRALAZINE HCL 25 MG TABLET PO SCH ×3 (09:35→21:09)
[2023-04-11] MEDS: carvediloL 25 MG TAB PO SCH ×2 (09:35→21:08)
[2023-04-11] MEDS: ASPIRIN EC 81 MG TAB PO SCH (09:35)
[2023-04-11] MEDS: MESALAMINE 400 MG CAPSULE.DR PO SCH ×4 (09:36→20:57)
[2023-04-11] MEDS: LOSARTAN POTASSIUM 50 MG TABLET PO SCH (09:36)
[2023-04-11] MEDS: BUDESONIDE, MICRONIZED 3 MG CAP PO SCH ×2 (09:37→21:11)
[2023-04-11] MEDS: PANTOPRAZOLE 40 MG INJ IVP SCH ×2 (09:38→21:12)
[2023-04-11] MEDS: SIMETHICONE 125 MG TAB PO SCH ×2 (09:38→21:11)
[2023-04-11] MEDS: HYOSCYAMINE SULF 0.125 MG TAB PO SCH ×3 (09:38→21:11)
[2023-04-11] MEDS: CEFTRIAXONE 1,000 MG in NA CHLORIDE 0.9% 50 ML IVPB SCH ×2 (09:39→20:59)
[2023-04-11] MEDS: cloNIDine HCL 0.1 MG TAB PO PRN (11:30)
[2023-04-11] MEDS: HYDROMORPHONE HCL 1 MG/ML INJ IV PRN ×2 (13:53→21:02)
[2023-04-11] MEDS: ATORVASTATIN 20 MG TAB PO SCH (20:57)
[2023-04-11] MEDS: FAMOTIDINE 20 MG TAB PO SCH (20:58)
--- NOTE | 2023-04-11 22:44 | PN ---
Date of Progress Note: 04/11/2023 Subjective: The patient was seen this morning for followup. Overall, she is feeling better this mor phillip compared to yesterday. No new complaints or problems reported. Objective: Vital Signs: Reviewed. HEENT: Unremarkable. Lungs: Clear to auscultation, except diminished air entry in the right lung base, not using accessor y muscles of respiration. Cardiac: Heart sounds normal. Abdomen: Soft. Bowel sounds normal. No guarding, rigidity, distention. Bowel sounds normoactive. Minimal epigastric tenderness. Overall better than before. Extremities: No leg edema. Laboratory Data: White count 11, hemoglobin 8.6, platelets 250. Sodium 132, potassium 3.7, chloride 102, bicarb 25, BUN 10, creatinine 0.73, glucose 99. Liver function tests unremarkable. Chest x-ra y shows evidence of pleural effusion in the right lung base. Impression: 1.Pneumonia. 2.Right pleural effusion. 3.Urinary tract infection. 4.Epigastric abdominal pain. 5.Anemia. 6.Hypertension. Plan: We will go ahead and continue current antibiotics. Urine culture is growing gram-negative mayra s. Definite identification and sensitivity result is pending. Hopefully, we should have this result available by tomorrow and plan is to discharge her to go home tomorrow with culture specific antibio tic. The patient did not have bowel movement yesterday, so Milk of Magnesia 30 cc p.o. x1 dose was ordered to be given today. Ambulation was encouraged. PRITI/MODL Voice ID: [id number] Report ID: [id number]
[2023-04-12] MEDS: NITROGLYCERIN 1 GM PKT TD SCH ×4 (00:58→17:23)
[2023-04-12 03:55] LABS: Potassium 4.3 mEq/L (3.5-5.1)
[2023-04-12] MEDS: LEVOTHYROXINE SOD 0.1 MG TAB PO SCH (05:22)
[2023-04-12] MEDS: NA CHLORIDE 0.9% 1,000 ML IV SCH (05:29)
--- NOTE | 2023-04-12 08:39 | P.PN ---
Subjective Date of Service: 04/11/23 Chief Complaint: LEANNE/LLQ pain, nausea, constipation, abn CT abd -> new liver lesions Subjective: Improving (Bowel movements have helped relieve abdominal pain. She notes one loose stool today and is asking about Lomotil now.) Review of Systems 10-point ROS is otherwise unremarkable Gastrointestinal: Abdominal Pain (Improved. ), Diarrhea Physical Examination - Vital Signs Temperature: 98.2 F Blood Pressure: 191/76 Pulse: 68 Respirations: 16 Pulse Ox (%): 92 - Physical Exam General: Alert, In no apparent distress, Oriented x3, Cooperative HEENT: Atraumatic, Normocephalic, PERRLA, EOMI Neck: Supple Respiratory: Normal air movement Cardiovascular: Normal pulses Gastrointestinal: No rebound, No guarding, Tenderness (Improved. ) Neurological: Normal speech Assessment And Plan - Current Problems (Diagnosis) (1) Nausea Current Visit: Yes Status: Acute Comment: Improved. (2) Abnormal abdominal CT scan Current Visit: Yes Status: Acute (3) Liver lesion Current Visit: Yes Status: Acute (4) Epigastric abdominal pain Current Visit: No Status: Acute (5) LLQ abdominal pain Current Visit: No Status: Acute (6) LLL pneumonia Current Visit: Yes Status: Acute (7) Hyponatremia Current Visit: Yes Status: Acute Comment: Improved. Na 127 to 132 - Plan REC: 1) continue IV antibiotics 2) decrease Miralax 3) continue Protonix bid 4) consider colonoscopy 5) check AFP 6) MRI liver
[2023-04-12] MEDS: SIMETHICONE 125 MG TAB PO SCH ×2 (09:00→17:23)
[2023-04-12] MEDS: HYOSCYAMINE SULF 0.125 MG TAB PO SCH ×3 (09:00→20:21)
[2023-04-12] MEDS: BUDESONIDE, MICRONIZED 3 MG CAP PO SCH ×2 (09:00→17:22)
[2023-04-12] MEDS: CEFTRIAXONE 1,000 MG in NA CHLORIDE 0.9% 50 ML IVPB SCH ×2 (09:22→20:22)
[2023-04-12] MEDS: HYDRALAZINE HCL 25 MG TABLET PO SCH ×3 (09:23→20:21)
[2023-04-12] MEDS: MESALAMINE 400 MG CAPSULE.DR PO SCH ×4 (09:23→20:20)
[2023-04-12] MEDS: ASPIRIN EC 81 MG TAB PO SCH (09:23)
[2023-04-12] MEDS: PANTOPRAZOLE 40 MG INJ IVP SCH ×2 (09:23→20:22)
[2023-04-12] MEDS: carvediloL 25 MG TAB PO SCH ×2 (09:24→20:21)
[2023-04-12] MEDS: LOSARTAN POTASSIUM 50 MG TABLET PO SCH (09:25)
[2023-04-12] MEDS: HYDROMORPHONE HCL 1 MG/ML INJ IV PRN ×2 (10:19→17:23)
--- NOTE | 2023-04-12 11:25 | P.PN ---
Subjective Date of Service: 04/12/23 Chief Complaint: LEANNE/LLQ pain, nausea, constipation, abn CT abd -> new liver lesions Subjective: Improving (Two more bowel movements today. She does not want to take Miralax anymore, stating it gives her diarrhea. Her abdominal pain is less. She notes some pain radiating from back pain from pneumonia.) Review of Systems 10-point ROS is otherwise unremarkable General: Weakness (Improved.) Gastrointestinal: Nausea (Improved.), Abdominal Pain (Improved.) Physical Examination - Vital Signs Temperature: 98.2 F Blood Pressure: 198/91 Pulse: 73 Respirations: 16 Pulse Ox (%): 92 - Physical Exam General: Alert, In no apparent distress, Oriented x3, Cooperative HEENT: Atraumatic, Normocephalic, PERRLA, EOMI Neck: Supple Respiratory: Normal air movement Cardiovascular: Normal pulses Gastrointestinal: No rebound, Tenderness (Improved.) Neurological: Normal speech Assessment And Plan - Current Problems (Diagnosis) (1) Nausea Current Visit: Yes Status: Acute Comment: Improved. (2) Abnormal abdominal CT scan Current Visit: Yes Status: Acute (3) Liver lesion Current Visit: Yes Status: Acute (4) Epigastric abdominal pain Current Visit: No Status: Acute (5) LLQ abdominal pain Current Visit: No Status: Acute (6) LLL pneumonia Current Visit: Yes Status: Acute (7) Hyponatremia Current Visit: Yes Status: Acute Comment: Improved. Na 127 to 132 - Plan REC: 1) continue IV antibiotics 2) decrease Miralax 3) continue Protonix bid 4) consider colonoscopy 5) check AFP 6) MRI liver 7) GI clinic f/u
--- NOTE | 2023-04-12 14:50 | RAD REPORT ---
EXAM DESCRIPTION: MRI - Mri Abdomen W/Wo Cont - 04/12/2023 12:24 pm CLINICAL HISTORY: new liver lesions on CT - rec MRI evaluation Abdominal pain COMPARISON: Cholangiogram dated 01/05/2023; Abdomen Pelvis W Contrast dated 04/05/2023 FINDINGS: Examination is limited by patient motion. Bilateral pleural effusions are noted, slightly larger on the left with atelectasis in the right lung base. Moderate intrahepatic biliary tree dilatation is evident. There is no worrisome enhancing liver mass evident. Nodular subcapsular enhancing lesion seen on rece nt CT does not appear correlate with a suspicious liver mass. Significant dropout of signal is seen in the right adrenal mass on out of phase imaging confirming be nign adenoma. Spleen is normal sized. Dilatation of the pancreatic duct is seen without discrete pancreatic lesion. Both kidneys show no mass or hydronephrosis. No bulky lymphadenopathy in the abdomen. Trace fluid is seen along the right hepatic edge. IMPRESSION: No worrisome liver mass is present. 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
[2023-04-12] MEDS: FAMOTIDINE 20 MG TAB PO SCH (20:20)
[2023-04-12] MEDS: ATORVASTATIN 20 MG TAB PO SCH (20:21)
--- NOTE | 2023-04-12 20:21 | PN ---
Date of Progress Note: 04/12/2023 Subjective: Patient was seen this morning for followup. Her abdominal pain is better overall. Shane es any new complaints. She is ambulating well. Had small bowel movement yesterday. Objective: Vital Signs: Reviewed. HEENT: Unremarkable. Lungs: Clear to auscultation except diminished air entry in the left lung base. Not using accessory muscles of respiration. Heart: Sounds normal. Abdomen: Soft. Bowel sounds normal. No guarding, rigidity, tenderness, distention. Extremities: No leg edema. Laboratory Data: Sodium 135, potassium 4.3, chloride 106, bicarb 25, BUN 9, creatinine 0.73, glucose 93. Urine culture is growing gram-negative rods. I talked to Microbiology Department today and sally li to parts technician who informed me that she is growing 2 different type of gram-negative rods and lovely l results will be available tomorrow. Impression: 1.Pneumonia. 2.Pleural effusion. 3.Urinary tract infection. 4.Hypertension. 5.Abdominal pain. 6.Constipation. Plan: We will go ahead and continue current laxatives as needed. Continue current antibiotic, which is Levaquin. We will continue Levsin as well as Gas-X that patient is on. Her biopsy report from [facility] is still pending. I have advised the patient that I would like to see her for followup next week at office either on Monday or Monday and possible discharge will happen tomorrow with appropriate cu lture specific antibiotics once culture result is available. She also understands that if she needs to go home with IV antibiotics depending on the culture results then it may delay her discharge for 1 or 2 more days as we will need to make arrangements for PICC line and home IV antibiotic therapy, bu t once again it will all depend on the urine culture results, which we are hoping will be available t omorrow. I have discussed details with the hospitalist as starting tomorrow, I will be out of town a [facility] hospitalist service will cover this patient in my absence. PRITI/MODL Voice ID: [id number] Report ID: [id number]
[2023-04-12] MEDS: cloNIDine HCL 0.1 MG TAB PO PRN (21:43)
[2023-04-13] MEDS: NITROGLYCERIN 1 GM PKT TD SCH ×3 (00:17→11:48)
[2023-04-13 03:20] LABS: Absolute Lymphocytes (CBC) 1.2 K/uL (0.7-4.9); Hematocrit 26.2 % (36.0-45.0); Lymphocytes % 12.5 % (15.3-44.8); MCV 91.3 fL (80-100); MPV 7.2 fL (7.6-11.3); Platelets 298 thou/uL (152-406); RBC Red Blood Cell Count 2.87 M/uL (3.86-4.86)
[2023-04-13 03:40] LABS: Potassium 3.2 mEq/L (3.5-5.1)
[2023-04-13] MEDS: HYDROMORPHONE HCL 1 MG/ML INJ IV PRN (05:17)
[2023-04-13] MEDS: LEVOTHYROXINE SOD 0.1 MG TAB PO SCH (05:22)
[2023-04-13] MEDS ORDERED: POTASSIUM CL SA 10 MEQ TAB PO ONE ×2 (06:00)
--- NOTE | 2023-04-13 07:20 | P.PN ---
Date of Service: 04/13/23 Subjective: epigastric pain continues; patient reports it comes and goes just laying still in bed BP remains elevated in 180-200s systolic no acute events overnight Breathing okay on room air at rest afebrile ROS: 10 point ROS as noted above, otherwise negative Physical Exam: GEN: Alert, oriented, NAD HEENT: Normal conjunctiva, sclera anicteric CV: Regular rate and rhythm, no edema Pulm: Nonlabored respirations on room air, diminished b/l at bases with slight crackles at left base ABD: Soft, epigastric tenderness, non-distended Neuro: Normal speech, normal affect vitals reviewed Problem List: NSTEMI UTI, Proteus Mirabilis Esbl, Klebsiella Pneumoniae L Pleural Effusion diastolic dysfunction, grade 1 Epigastric abdominal pain, secondary to gastric ulcer Gastritis, Gastric ulcer Right adrenal adenoma Hypertension GERD Hypothyroidism Hyperlipidemia NSTEMI troponins mildly elevated, monitor on tele Cardiology consulted echo (04/05/23): 55% EF, mild concentric left ventricular hypertrophy, grade 1 diastolic dysfunction, mitral annular calcification with mild MR, mild TR f/u stress test as outpatient; no further cardiac workup continue aspirin, statin UTI, Proteus Mirabilis Esbl, Klebsiella Pneumoniae urine cx (04/09): Klebsiella pneumoniae and Proteus Mirabilis Esbl sensitive to Levofloxacin Denies any UTI symptoms Rocephin (04/09-04/13) switched to levaquin d/t culture sensitivity ID consulted start Levaquin (04/13-04/18) x5 days per ID afebrile, leukocytosis improving biltaral pleural effusion, L>R, with atelectasis diastolic dysfunction, grade 1 CXR (04/09): New airspace disease at the left lung base which may represent a combination of atelectasis, pneumonia, and pleural fluid CXR (04/11): 9 cm opacity left lower hemithorax. This probably represents a combination of pneumonia and pleural effusion MRI: left atelectasis, with L>R effusion BP elevated more than usual, states baseline 150-160s IV lasix 20mg x1 04/13 Epigastric abdominal pain Gastritis, Gastric ulcer Right adrenal adenoma CT abdomen (04/05): Small subscapular enhancing lesions are present in the liver parenchyma as detailed, appearing new since prior study. In addition, right- sided adrenal masses have increased in size Interval enlargement of right posterior pelvic cystic structure as detailed, nonspecific. Diverticulosis coli without diverticulitis MRI abdomen (04/12): No worrisome liver mass is present. Right adrenal lesions are compatible with benign adenomas GI consulted s/p EGD (04/05): moderate gastritis, gastric ulcer f/u outpatient 2 weeks consider colonoscopy in near future continue Protonix BID PRN pain medication - dilaudid dc'd 04/13 add carafate Hypertension continue hydralazine, losartan, carvedilol Restart home amlodipine 04/13 GERD Hypothyroidism Hyperlipidemia continue home medications as appropriate Dispo: home, ~1-2 days
[2023-04-13] MEDS: CEFTRIAXONE 1,000 MG in NA CHLORIDE 0.9% 50 ML IVPB SCH (07:35)
[2023-04-13] MEDS: MESALAMINE 400 MG CAPSULE.DR PO SCH ×4 (07:35→20:09)
[2023-04-13] MEDS: carvediloL 25 MG TAB PO SCH ×2 (07:35→20:08)
[2023-04-13] MEDS: ASPIRIN EC 81 MG TAB PO SCH (07:36)
[2023-04-13] MEDS: HYOSCYAMINE SULF 0.125 MG TAB PO SCH ×3 (07:36→20:09)
[2023-04-13] MEDS: HYDRALAZINE HCL 25 MG TABLET PO SCH ×3 (07:36→20:07)
[2023-04-13] MEDS: BUDESONIDE, MICRONIZED 3 MG CAP PO SCH ×2 (07:36→20:08)
[2023-04-13] MEDS: LOSARTAN POTASSIUM 50 MG TABLET PO SCH (07:36)
[2023-04-13] MEDS: SIMETHICONE 125 MG TAB PO SCH ×2 (07:36→20:09)
--- NOTE | 2023-04-13 08:13 | P.CNS ---
Date of Consult: 04/13/23 Reason for Consult: UTI Chief Complaint: LEANNE/LLQ pain, nausea, constipation, abn CT abd -> new liver lesions History of Present Illness: Patient is a 78 yo female with a past medical history of colitis, hypothyroidism, hypertension, diverticulosis and GERD who presented to the ED with complaints of epigastric pain radiating to her back/chest described as sharp and constant. Underwent EGD on 04/07 with findings of gastritis gastric ulcer. Urine culture 04/09 growing klebsiella and proteus, infectious disease was consulted. Allergies adhesive tape Allergy (Verified 04/07/23 13:24) Itching/Hives/Rash latex Allergy (Verified 04/07/23 13:24) Itching/Hives/Rash morphine Allergy (Verified 04/07/23 13:24) jittering Home medications list reviewed: Yes Home Medications: Levothyroxine Sodium [Synthroid] 120 mcg PO DAILY 12/13/11 Atorvastatin Calcium [Lipitor*] 20 mg PO BEDTIME 01/19/15 carvediloL [Coreg*] 25 mg PO BID 01/19/15 Hydralazine [Apresoline*] 50 mg PO TID 04/02/15 Mesalamine 1.2 gm PO QID 03/27/19 Aspirin [Bryan Chewable Aspirin] 81 mg PO DAILY 04/05/23 Budesonide [Uceris] 3 mg PO BID 04/05/23 Losartan Potassium [Cozaar] 100 mg PO DAILY 04/05/23 Omeprazole [Prilosec] 40 mg PO DAILY 04/05/23 - Past Medical/Surgical History Diabetic: No -: hyperlipidemia -: hypertension -: hypothyroidism -: hysterectomy -: thyroidectomy -: cholecystectomy - Family History Mother Medical History: Heart disease, Diabetes Father Medical History: Heart disease, Kidney disease - Social History Smoking Status: Current every day smoker Alcohol use: No CD- Drugs: No Caffeine use: Yes Place of Residence: Home Review of Systems General: Weakness Gastrointestinal: Nausea (mild), Abdominal Pain Genitourinary: Unremarkable Physical Examination Temp Pulse Resp BP Pulse Ox 98.8 F 73 18 190/90 H 92 04/13/23 04:00 04/13/23 07:35 04/13/23 04:00 04/13/23 07:35 04/13/23 04:00 General: Alert, In no apparent distress, Oriented x3 HEENT: Atraumatic, Normocephalic Neck: Supple, JVD not distended Respiratory: Clear to auscultation bilaterally, Normal air movement (on room air) Cardiovascular: No edema, Regular rate/rhythm Gastrointestinal: Normal bowel sounds, Tenderness Integumentary: No rashes Neurological: Normal speech, Normal tone, Normal affect Laboratory Data - Reviewed Microbiology data - Reviewed Imagings Data: - Reviewed Conclusions/Impression: Problem List Acute Cystitis Pneumonia NSTEMI Gastric Ulcer Hypertension GERD Collagenous colitis Anemia Hypothyroidism Hyperlipidemia Liver mass Acute Cystitis - Urine culture 04/09: Klebsiella pneumoniae and Proteus mirabilis, sensitive to Levofloxacin - Denies any urinary symptoms - leukocytosis resolved (WBC 16.3 -> 11 -> 10) - afebrile - Previously on Rocephin (04/09-04/13) switched to Levaquin 04/13 Gastritis, gastric ulcer: - s/p EGD 04/07 - On protonix BID - See GI note for further recommendations Recommendations - Continue Levofloxacin for 5 days (04/13-04/18) - Monitor WBC and fever trends - Follow up with Dr. Simmons next week - Follow up with GI as outpatient Case discussed with Bruce Levy
[2023-04-13] MEDS: PANTOPRAZOLE 40 MG INJ IVP SCH ×2 (09:00→20:09)
[2023-04-13] MEDS: AMLODIPINE 10 MG TAB PO SCH (10:52)
[2023-04-13] MEDS: Levofloxacin 750mg IV 750 MG/150 ML BAG IV SCH (10:52)
[2023-04-13] MEDS: ACETAMINOPHEN 500 MG TAB PO PRN ×2 (11:45→17:08)
[2023-04-13] MEDS ORDERED: cloNIDine HCL 0.1 MG TAB PO PRN (15:15)
[2023-04-13] MEDS ORDERED: FUROSEMIDE 20 MG/ 2ML VIAL IV ONE (15:35)
[2023-04-13] MEDS: SUCRALFATE 1 GM TABLET PO SCH ×2 (16:18→20:09)
[2023-04-13] MEDS: ATORVASTATIN 20 MG TAB PO SCH (20:07)
[2023-04-13] MEDS: CODEINE 30MG/APAP 300MG TAB PO PRN (20:08)
[2023-04-13] MEDS: FAMOTIDINE 20 MG TAB PO SCH (20:09)
[2023-04-14 03:08] LABS: Absolute Lymphocytes (CBC) 1.4 K/uL (0.7-4.9); Hematocrit 26.6 % (36.0-45.0); Lymphocytes % 12.3 % (15.3-44.8); MCV 91.3 fL (80-100); MPV 6.9 fL (7.6-11.3); Platelets 329 thou/uL (152-406); RBC Red Blood Cell Count 2.92 M/uL (3.86-4.86)
[2023-04-14] MEDS: CODEINE 30MG/APAP 300MG TAB PO PRN (03:09)
[2023-04-14 03:26] LABS: Albumin 2.1 g/dL (3.4-5.0); Bilirubin Total 0.3 mg/dL (0.2-1.0); Magnesium 1.7 mg/dL (1.6-2.4); Potassium 3.1 mEq/L (3.5-5.1); Protein, Total 5.8 g/dL (6.4-8.2)
[2023-04-14] MEDS ORDERED: POTASSIUM CL SA 10 MEQ TAB PO ONE (06:00)
[2023-04-14] MEDS: LEVOTHYROXINE SOD 0.1 MG TAB PO SCH (06:05)
--- NOTE | 2023-04-14 08:22 | P.PN ---
Date of Service: 04/14/23 Chief Complaint: LEANNE/LLQ pain, nausea, constipation, abn CT abd -> new liver lesions Subjective: Improving. + epigastric pain No acute events reported overnight. Physical Examination Temp Pulse Resp BP Pulse Ox 97.4 F 64 17 168/75 H 93 04/14/23 04:00 04/14/23 04:00 04/14/23 04:09 04/14/23 06:09 04/14/23 04:00 General: Alert, In no apparent distress, Oriented x3 HEENT: Atraumatic, Normocephalic Neck: Supple, JVD not distended Respiratory: Clear to auscultation bilaterally, Normal air movement. Cardiovascular: No edema, Regular rate/rhythm Gastrointestinal: Normal bowel sounds, Tenderness Integumentary: No rashes Neurological: Normal speech, Normal tone, Normal affect Laboratory Data - Reviewed Microbiology data - Reviewed Imagings Data: - Reviewed Medications List: Reviewed Assessment and Plan Problem List Acute Cystitis Pneumonia NSTEMI Gastric Ulcer Hypertension GERD Collagenous colitis Anemia Hypothyroidism Hyperlipidemia Liver mass Acute Cystitis - Urine culture 04/09: Klebsiella pneumoniae and Proteus mirabilis, sensitive to Levofloxacin - Denies any urinary symptoms - leukocytosis resolved (WBC 16.3 -> 11 -> 10) - afebrile - Previously on Rocephin (04/09-04/13) switched to Levaquin 04/13 Gastritis, gastric ulcer: - s/p EGD 04/07 - On protonix BID - reports epigastric pain - See GI note for further recommendations Recommendations - Continue Levofloxacin for 5-7 days (04/13-04/18-) - Follow up with Dr. Simmons next week - Follow up with GI as outpatient Case discussed with Bruce Levy
[2023-04-14 08:24] VITALS: BP 179/87; TEMP 97.3
[2023-04-14] MEDS: SIMETHICONE 125 MG TAB PO SCH (08:30)
[2023-04-14] MEDS: BUDESONIDE, MICRONIZED 3 MG CAP PO SCH (08:31)
[2023-04-14] MEDS: carvediloL 25 MG TAB PO SCH (08:32)
[2023-04-14] MEDS: ASPIRIN EC 81 MG TAB PO SCH (08:32)
[2023-04-14] MEDS: LOSARTAN POTASSIUM 50 MG TABLET PO SCH (08:33)
[2023-04-14] MEDS: AMLODIPINE 10 MG TAB PO SCH (08:34)
[2023-04-14] MEDS: HYDRALAZINE HCL 25 MG TABLET PO SCH (08:34)
[2023-04-14] MEDS: MESALAMINE 400 MG CAPSULE.DR PO SCH (08:35)
[2023-04-14] MEDS: SUCRALFATE 1 GM TABLET PO SCH (08:35)
[2023-04-14] MEDS: HYOSCYAMINE SULF 0.125 MG TAB PO SCH (08:36)
[2023-04-14] MEDS: PANTOPRAZOLE 40 MG INJ IVP SCH (08:37)
[2023-04-14] MEDS: Levofloxacin 750mg IV 750 MG/150 ML BAG IV SCH (08:37)
[2023-04-14 08:44] VITALS: O2SAT 96
--- NOTE | 2023-04-14 08:52 | P.DS ---
Admission Date: 04/05/23 Discharge Date: 04/14/23 Disposition: ROUTINE DISCHARGE Discharge Condition: GOOD Reason for Admission: LEANNE/LLQ pain, nausea, constipation, abn CT abd -> new liver lesions Consultations: Cardiology - Dr. Maloney GI - Dr. Rao Infectious Disease - Dr. Leonard Hospital Course: HPI on admission: 78yo F, PMH: Hypertension, GERD, Hypothyroidism, Hyperlipidemia, Patient who woke up around 6:45 a.m. today with epigastric abdominal pain radiating to her back. Pain has been continuous since it started and denies any nausea, vomiting, heartburn, or indigestion. No fever or chills. No shortness of breath. After she came into emergency room, she was evaluated and admitted to the hospital. Patient reported that her pain is on pain scale 0-10, it is at 8/10. She did try to eat something this evening and after that, her pain got worse Problem List: NSTEMI UTI, Proteus Mirabilis Esbl, Klebsiella Pneumoniae biltaral pleural effusion, L>R, with atelectasis diastolic dysfunction, grade 1 Epigastric abdominal pain, secondary to gastric ulcer Gastritis, Gastric ulcer Right adrenal adenoma Hypertension GERD Hypothyroidism Hyperlipidemia Urine culture grew ESBL proteus and klebsiella. Sensitivities reviewed and both were sensitive to levaquin. GI was consulted. Patient underwent EGD revealing gastritis and gastric ulcer. She was treated with PPI, levsin, and simethicone. Pain was severe at times requiring IV opioid medication, but she had gradual improvement. Carafate was added and provided some further relief. Throughout her hospitalization she was noted to become significantly hypertensive despite being on her home medications. She reported often times at home, her BP would be elevatd 160s-170s, and even to 190s at times, which she would take norvasc PRN. CXR and MRI (done for liver lesions) noted b/l pleural effusions, L>R. This was thought to be secondary to the amount of fluids she required due to low PO intake and NPO status for procedures, on background of some grade 1 diastolic dysfunction and low albumin. She received 2 doses of lasix with improvement of BP. She denies any shortness of breath or significant b/l extremity edema. Follow up with PCP, consideration for repeat CXR in a few weeks to ensure resolution of left lung opacities. Continue all prior home medications. Followup with Dr Simmons next week on Monday or Monday. [facility] [place] [facility] scan of abdomen and abdominal pain. Take following new medications: 1. Levsin 0.125 mg, take 1 tablet by mouth three times a day. 2. Gas-X or Phazyme 125 mg, take 1 tablet by mouth two times a day (over the counter medication). 3. Levofloxacin x 5 days 4. Carafate 5. Tylenol #3 as needed for pain 6. Protonix twice a day, in place of omeprazole continue amlodipine as needed for elevated blood pressure. Prescription for Levsin will be sent to your pharmacy from Dr Simmons's office Prescription for levofloxacin, carafate, tylenol #3, protonix sent to you by Dr. Beard Use Tylenol 500 mg, take 2 tablets by mouth two to three times a day as needed for pain May use Dulcolax rectal suppository (over the counter) daily as needed for constipation. Walk in your house for five minutes every hour during daytime Physical Exam: GEN: Alert, oriented, NAD HEENT: Normal conjunctiva, sclera anicteric CV: Regular rate and rhythm, no edema Pulm: Nonlabored respirations on room air, diminished b/l at bases ABD: Soft, mild epigastric tenderness, non-distended Neuro: Normal speech, normal affect Vital Signs/Physical Exam: Temp Pulse Resp BP Pulse Ox 97.3 F 87 16 179/87 H 95 04/14/23 08:00 04/14/23 08:34 04/14/23 08:00 04/14/23 08:34 04/14/23 08:00 Laboratory Data at Discharge: WBC 11.70 thou/uL (4.3-10.9) H 04/14/23 02:30 Hgb 9.3 g/dL (12.0-15.0) L 04/14/23 02:30 Hct 26.6 % (36.0-45.0) L 04/14/23 02:30 Plt Count 329 thou/uL (152-406) 04/14/23 02:30 Sodium 134 mEq/L (136-145) L 04/14/23 02:30 Potassium 3.1 mEq/L (3.5-5.1) L D 04/14/23 02:30 BUN 10 mg/dL (7-18) 04/14/23 02:30 Creatinine 0.79 mg/dL (0.55-1.02) 04/14/23 02:30 Glucose 110 mg/dL (74-106) H 04/14/23 02:30 Magnesium 1.7 mg/dL (1.6-2.4) 04/14/23 02:30 Total Bilirubin 0.3 mg/dL (0.2-1.0) 04/14/23 02:30 AST 13 U/L (15-37) L 04/14/23 02:30 ALT 14 U/L (13-56) 04/14/23 02:30 Alkaline Phosphatase 51 U/L (45-117) 04/14/23 02:30 Triglycerides 84 mg/dL (<150) 04/10/23 02:33 Cholesterol 99 mg/dL (<200) 04/10/23 02:33 HDL Cholesterol 39 mg/dL (40-60) L 04/10/23 02:33 Cholesterol/HDL Ratio 2.54 04/10/23 02:33 Lipase 17 U/L (13-75) 04/05/23 08:48 Home Medications: Levothyroxine Sodium [Synthroid] 120 mcg PO DAILY 12/13/11 Atorvastatin Calcium [Lipitor*] 20 mg PO BEDTIME 01/19/15 carvediloL [Coreg*] 25 mg PO BID 01/19/15 Hydralazine [Apresoline*] 50 mg PO TID 04/02/15 Mesalamine 1.2 gm PO QID 03/27/19 Aspirin [Bryan Chewable Aspirin] 81 mg PO DAILY 04/05/23 Budesonide [Uceris] 3 mg PO BID 04/05/23 Losartan Potassium [Cozaar] 100 mg PO DAILY 04/05/23 Codeine/APAP [Tylenol #3*] 1 tab PO Q8H PRN #10 tab 04/14/23 Hyoscyamine Sulfate [Levsin TAB*] 0.125 mg PO TID 30 Days #90 tab 04/14/23 Pantoprazole [Protonix Tab*] 40 mg PO BID 30 Days #60 tab 04/14/23 Sucralfate [Carafate*] 1 gm PO ACHS 30 Days #120 tab 10/13/23 levoFLOXacin [Levaquin] 750 mg PO DAILY 5 Days #5 tab 04/14/23 New Medications: Sucralfate [Carafate*] 1 gm PO ACHS 30 Days #120 tab levoFLOXacin [Levaquin] 750 mg PO DAILY 5 Days #5 tab Hyoscyamine Sulfate [Levsin TAB*] 0.125 mg PO TID 30 Days #90 tab Pantoprazole [Protonix Tab*] 40 mg PO BID 30 Days #60 tab Codeine/APAP [Tylenol #3*] 1 tab PO Q8H PRN #10 tab PRN Reason: Pain Scale 5-7 (Moderate) Physician Discharge Instructions: Continue all prior home medications. Followup with Dr Simmons next week on Monday or Monday. Followup with [facility] for abnormal CT scan of abdomen and abdominal pain. Take following new medications: 1. Levsin 0.125 mg, take 1 tablet by mouth three times a day. 2. Gas-X or Phazyme 125 mg, take 1 tablet by mouth two times a day (over the counter medication). 3. Levofloxacin x 5 days 4. Carafate 5. Tylenol #3 as needed for pain 6. Protonix twice a day, in place of omeprazole continue amlodipine as needed for elevated blood pressure. Prescription for Levsin will be sent to your pharmacy from Dr Simmons's office Prescription for levofloxacin, carafate, tylenol #3, protonix sent to you by Dr. Beard Use Tylenol 500 mg, take 2 tablets by mouth two to three times a day as needed for pain May use Dulcolax rectal suppository (over the counter) daily as needed for constipation. Walk in your house for five minutes every hour during daytime Followup: Kale Simmons MD [Primary Care Provider] - Time spent managing pt's care (in minutes): 45
[2023-04-14] MEDS ORDERED: FUROSEMIDE 20 MG TABLET PO ONE (08:55)
[2023-04-14] MEDS ORDERED: levoFLOXacin 750 MG TAB PO SCH (09:00)
[2023-04-14] MEDS ORDERED: MAGNESIUM SULFATE 1 gm IVPB 1 GM/100 ML BAG IV ONE (12:00)
[2023-04-15] MEDS ORDERED: PANTOPRAZOLE 40MG TABLET PO SCH (06:30)
== END 2023-04-14 10:40 | disposition home or self-care (01) | DRG 280 ==
LOC: ER 08:29 → ERHOLD 12:00 → 2ND 13:57
PROVIDERS: ADMIT Internal Medicine; ATTEND Hospitalist
PROC: 0DB78ZX Excision of Stomach, Pylorus, Via Natural or Artificial Opening Endoscopic, Diagnostic (ICD-10-PCS; 2023-04-07)
PROC: 0DB68ZX Excision of Stomach, Via Natural or Artificial Opening Endoscopic, Diagnostic (ICD-10-PCS; principal; 2023-04-07 14:00)
DX: I21.4 Non-ST elevation (NSTEMI) myocardial infarction (principal); J18.9 Pneumonia, unspecified organism; E87.1 Hypo-osmolality and hyponatremia; Z16.12 Extended spectrum beta lactamase (ESBL) resistance; N30.00 Acute cystitis without hematuria; K25.9 Gastric ulcer, unspecified as acute or chronic, without hemorrhage or perforation; K29.70 Gastritis, unspecified, without bleeding; E78.5 Hyperlipidemia, unspecified; K52.831 Collagenous colitis; D35.01 Benign neoplasm of right adrenal gland; I10 Essential (primary) hypertension; E87.6 Hypokalemia; K59.00 Constipation, unspecified; K76.9 Liver disease, unspecified; D64.9 Anemia, unspecified; E83.42 Hypomagnesemia; E03.9 Hypothyroidism, unspecified; K57.90 Diverticulosis of intestine, part unspecified, without perforation or abscess without bleeding; F17.200 Nicotine dependence, unspecified, uncomplicated; B96.4 Proteus (mirabilis) (morganii) as the cause of diseases classified elsewhere; B96.1 Klebsiella pneumoniae [K. pneumoniae] as the cause of diseases classified elsewhere; R16.0 Hepatomegaly, not elsewhere classified; R73.01 Impaired fasting glucose; Z88.5 Allergy status to narcotic agent; Z90.49 Acquired absence of other specified parts of digestive tract; Z79.82 Long term (current) use of aspirin; Z79.02 Long term (current) use of antithrombotics/antiplatelets; Z79.890 Hormone replacement therapy; Z79.899 Other long term (current) drug therapy; Z90.711 Acquired absence of uterus with remaining cervical stump; Z91.040 Latex allergy status; Z91.048 Other nonmedicinal substance allergy status
CPT/HCPCS: 36415; 71045; 71046; 74177; 74183; 80048; 80053; 80061; 80076; 81001; 82105; 83690; 83735; 84132; 84443; 84484; 85025; 87077; 87086; 87088; 87186; 88305; 88312; 93005; 93306; 94010; 96372; 99285; A4216; A9577; C9113; J0696; J1170; J1650; J1940; J2001; J2175; J2405; J2704; J3475; J7030; J7040; Q2035; Q9967

== ENCOUNTER 2024-03-01 16:22 | Inpatient (IN) | payer OTHER, BC ==
--- OUTSIDE RECORDS SUMMARY | 2024-03-01 19:06 | XMS REPORT | Continuity of Care Document ---
Author Name Unknown Address [address] [facility] [place] [place] [address] [facility] Address [address] [facility] [place] [place] [address] Care Team Providers Care Global Category Manager Name Role Phone Kale Simmons Primary Care Physician Unavailab ABIODUN Calderon Attending Clinician Unavailable ABIODUN SHAH Attending Clinician Unavailable CHRISTOS DENNY Attending Clinician UnavailELAN Morocho Attending Clinician Unavailable ELAN FONTANEZ Attending Clinician Unavailable Eric Tomas MD Attending Clinician [phone] Ranjit George MD Attending Clinician [phone] Vince Buchanan MD Attending Clinician [phone] Elan Fontanez DO Attending Clinician [phone] Neurology Attending Clinician Unavailable Brendan Perez MD Attending Clinician [phone] Andrew Pizarro MD Attending Clinician + Radha Lozano MD Attending Clinician [phone] MARCELINO CARVER NATASHA Attending Clinician Unava RADHA Brady Attending Clinician Unavailable RADHA LOZANO Attending Clinician Unavailable CASANDRA WASHINGTON Attending Clinician Unav CASANDRA Jeffrey Attending Clinician UnaLeyla Tenorio MD Attending Clinician [phone] Casandra Joyce MD Attending Clinician [phone] aKveh BALDERAS, Mason Attending Clinician [phone] Lizett BALDERAS, Emma Attending Clinician [phone] Demetri BALDERAS, Kalia Attending Clinician + Marifer BALDERAS, Julian Attending Clinician + [phone] Violetta Combs DO Attending Clinician + Denisha BALDERAS, Christos Attending Clinician [phone] JOE BARRIOS Attending Clinician Unavailable JOE BARRIOS Attending Clinician Unavailable RAJIV RUDOLPH Attending Clinician Unavailab Raul BALDERAS, Rajiv Key Attending Clinician [phone] Melva Torrez DO Attending Clinician + [phone] Joycelyn Taylor CRNA Attending Clinician [phone] Doctor Unassigned, [place] Attending Clinician U navailable [email or web address] Attending Clinician UnavailErasmo Lundy MD Attending Clinician [phone] ERASMO TOVAR Attending Clinician Unavailable Nurse, [facility] Attending Clinician UnaMaribeth Sousa Attending Clinician [phone] MARIBETH NOLASCO Attending Clinician UnavailNyla Sampson RN Attending Clinician Unavailable Gisella Boothe RN Attending Clinician Unavaila Galo Hayden MD Attending Clinician [phone] LILI DEGROOT Attending Clinician Unavailable Zane BALDERAS, Lili Attending Clinician [phone] SARA ONEAL Attending Clinician Unavailable Sara Oneal MD Attending Clinician [phone] Ernesto BALDERAS, Arlette Attending Clinician [phone] Only, [facility] Test Attending Clinician Unavailable Yayo BALDERAS, Chris Carias Attending Clinician [phone] Andrew Marrero MD Attending Clinician [phone] Regine-Sha Zamora DO Attending Clinician [phone] Danny FERNANDEZ, Emily Marie Attending Clinician Unavail able JOHNATHAN GALLEGOS Attending Clinician Unavail able Johnathan Gallegos MD Attending Clinician [phone] Pantera Springer MD Attending Clinician [phone] ABIODUN SHAH Admitting Clinician Unavailable ELAN FONTANEZ Admitting Clinician Unavailable Elan Fontanez DO Admitting Clinician [phone] MARCELINO CARVER NATASHA Admitting Clinician Unava CASANDRA Coy Admitting Clinician Unavailab CHRISTOS Lord Admitting Clinician UnavailRAJIV Arevalo Admitting Clinician Unavailab Rajiv Carter MD Admitting Clinician [phone] Christos Denny MD Admitting Clinician [phone] [email or web address]_S Admitting Clinician Unavaila ERASMO Donaldson Admitting Clinician Unavailable Erasmo Tovar MD Admitting Clinician [phone] LILI DEGROOT Admitting Clinician Unavailable SARA ONEAL Admitting Clinician Unavailable JOHNATHAN GALLEGOS Admitting Clinician Unavail able Johnathan Gallegos MD Admitting Clinician [phone] Payers Payer Name Policy Type Policy Number Effective Date Expirati on Date Source MEDICARE PART A \\T\\ B [id number] 2012 00:00:00 [facility] [id number] 2012 00:00:00 [facility] [id number] [facility] [id number] Problems Condition Name Condition Details Condition Category Status Onset Date Resolution Date Last Treatment Date Treating Clinician Comments Source 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 Disease Active 02-24 00:00: 00 [facility] Bleeding Bleeding Disease Active 02-24 00:00: 00 [facility] Hyponatrem ia Hyponatrem ia Disease Active 02-23 00:00: 00 [facility] Acute ischemic left MCA stroke Acute ischemic left MCA stroke Disease Active 01-26 00:00: 00 [facility] Closed displaced fracture of right femoral neck Closed displaced fracture of right femoral neck Disease Active 01-26 00:00: 00 [facility] Gastric ulcer without hemorrhage or perforatio n, unspecifie d chronicity Gastric ulcer without hemorrhage or perforatio n, unspecifie d chronicity Disease Active 2022-07 00:00: 00 [facility] 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 Added automatic ally from request for surgery [id number] [facility] Colitis Colitis Disease Active 11-18 00:00: 00 [facility] Cerebrovas cular accident (CVA), unspecifie d mechanism Cerebrovas cular accident (CVA), unspecifie d mechanism Disease Resolve d 01-26 00:00: 00 2024-01-29 00:00:00 2024-01-29 16:45:13 [facility] Allergies, Adverse Reactions, Alerts Allergy Name Allergy Type Status Severity Reaction(s) Onset Date Inactive Date Treating Clinician Comments Source Morphine Propensi ty to adverse reaction s Active Other - See comments 11-18 00:00: 00 Feel "Jittery and displaced " [facility] MORPHINE DRUG INGREDI Active Other-Cmnt 11-18 00:00: 00 [facility] Family History Family Member Diagnosis Comments Start Date Stop Date Sourc e Natural brother Coronary Heart Disease [facility] Natural brother Other - see comments [facility] Natural brother Stomach Cancer [facility] Natural father Coronary Heart Disease [facility] Natural mother Heart Unive [facility] Social History Social Habit Start Date Stop Date Quantity Comments Source Sexual orientation [facility] History of tobacco use Cigarette Smoker [facility] Cigarettes smoked current (pack per day) - Reported 2024-01-29 00:00:00 2024-01-29 00:00:00 [facility] Cigarette pack-years 2024-01-29 00:00:00 2024-01-29 00:00:00 [facility] Tobacco use and exposure 2024-01-29 00:00:00 2024-01-29 00:00:00 Smokeless tobacco non-user [facility] History of Social function 2023-10-25 00:00:00 2023-10-25 00:00:00 [facility] Exposure to SARS-CoV-2 (event) 2022-04-20 00:00:00 2022-04-30 16:35:00 Not sure [facility] Sex assigned at 1945 00:00:00 1945 00:00:00 [facility] Smoking Status Start Date Stop Date Source Smokes tobacco daily 2024-01-29 00:00:00 [facility] Ex-smoker 2022-03-31 00:00:00 2022-03-31 00:00:00 [facility] Medications Ordered Medication Name Filled Medication Name Start Date Stop Date Current Medication? Ordering Clinician Indication Dosage Frequency Signature (SIG) Comments Components Source Potassium Bicarb-Citr ic Acid (EFFER-K) effervescen t tablet 20 mEq 03-01 18:30: 00 03-01 18:35 :00 No 20meq 20 mEq, Oral, ONCE, 1 dose, On Mon03/01/24 at 1330, Routine [facility] acetaminoph en-codeine (TYLENOL #3) 300-30 mg tablet 1 tablet 03-01 12:46: 22 Yes 1{tbl} 1 tablet, Oral, Q6HPRN, Starting on Mon03/01/24 at 0746, Until Discontinu ed, Routine, Pain (scale 4-6), Pain (scale 7-10) [facility] rosuvastati n 40 mg tablet 03-01 00:00: 00 04-01 04:59 :00 Yes [id number] 40mg Take 1 tablet by mouth at bedtime for 30 days. [facility] levoFLOXaci n 500 mg tablet 03-01 00:00: 00 03-16 04:59 :00 Yes [id number] 500mg Take 1 tablet by mouth every 24 (twenty-fo ur) hours for 14 days. [facility] HYDROcodone -acetaminop hen 10-325 mg tablet 03-01 00:00: 00 03-09 04:59 :00 Yes [id number] 1{tbl} Take 1 tablet by mouth every 6 (six) hours as needed for Pain (scale 4-6) or Pain (scale 7-10) for up to 7 days. Indication s: acute pain [facility] cefTRIAXone (ROCEPHIN) 2,000 mg in NaCl 0.9% (NS) 100 mL MINI-BAG 02-28 23:45: 00 03-01 13:30 :49 No 2000mg 2,000 mg, IV Piggyback, Q24H ABX, 14 doses, First dose on Mon02/29/24 at 1845, Last dose on Mon03/13/24 at 1845, Administer over 30 Minutes, 100 mL, Reason for Anti-Infec tive: Documented Infection, Documented Infection Site: Skin / Soft Tissue, Duration of Therapy: 14 days [facility] NaCl 0.9% (NS) IV infusion 500 mL 02-28 16:45: 00 02-28 17:41 :00 No 500mL at 125 mL/hr, IV Infusion, ONCE, 1 dose, On Mon02/29/24 at 1145, Routine [facility] HYDROcodone -acetaminop hen (NORCO 5) tablet 1 tablet 02-28 15:15: 00 02-28 15:10 :00 No 1{tbl} 1 tablet, Oral, ONCE, 1 dose, On Mon02/29/24 at 1015, Routine [facility] HYDROcodone -acetaminop hen (NORCO) 10-325 mg tablet 1 tablet 02-28 14:29: 02 Yes 1{tbl} 1 tablet, Oral, Q6HPRN, Starting on Mon02/29/24 at 0929, Until Discontinu ed, Routine, Pain (scale 4-6), Pain (scale 7-10) [facility] proMETHazin e (PHENERGAN) 12.5 mg in NS 50 mL IV piggyback (CNR) 02-28 14:25: 03 Yes 12.5mg 12.5 mg, IV Piggyback, at 200 mL/hr Administer over 15 Minutes, Q4HPRN, Starting on Mon02/29/24 at 0925, Until Discontinu ed, Routine, Nausea and Vomiting (N/V), Give w/ levoquin [facility] aspirin chewable tablet 81 mg 02-28 14:00: 00 Yes 81mg 81 mg, Oral, DAILY, First dose on Mon02/29/24 at 0900, Until Discontinu ed, Routine [facility] magnesium sulfate in water 2 gram/50 mL (4 %) infusion 2 g 02-28 12:30: 00 02-28 15:16 :00 No 2g 2 g, IV Piggyback, Administer over 60 Minutes, ONCE, 1 dose, On Mon02/29/24 at 0730, Routine [facility] rosuvastati n (CRESTOR) tablet 40 mg 02-28 02:00: 00 Yes 40mg 40 mg, Oral, QHS, First dose on Mon02/28/24 at 2100, Until Discontinu ed, Routine [facility] apixaban (ELIQUIS) tablet 5 mg 02-28 01:00: 00 Yes 5mg 5 mg, Oral, BID, First dose on Mon02/28/24 at 2000, Until Discontinu ed, Routine, Indication s: Non-Valvul ar Atrial Fibrillati on [facility] trimethoben zamide (TIGAN) injection 100 mg 02-27 23:45: 01 Yes 100mg 100 mg, Intramuscu lar, Q6HPRN, Starting on Mon02/28/24 at 1845, Until Discontinu ed, Routine, Nausea and Vomiting (N/V) [facility] levoFLOXaci n (LEVAQUIN) tablet 750 mg 02-27 20:15: 00 02-28 22:31 :39 No 750mg 750 mg, Oral, Q24H ABX, 7 doses, First dose on Mon02/28/24 at 1515, Last dose on Mon03/05/24 at 1515, FRANCK, Reason for Anti-Infec tive: Documented Infection, Documented Infection Site: Wound, Duration of Therapy: 7 days [facility] Potassium Bicarb-Citr ic Acid (EFFER-K) effervescen t tablet 40 mEq 02-27 11:30: 00 02-27 11:05 :00 No 40meq 40 mEq, Oral, ONCE, 1 dose, On Mon02/28/24 at 0630, Routine [facility] HYDROcodone -acetaminop hen (NORCO 5) tablet 1 tablet 02-26 12:04: 00 02-26 14:30 :00 No 1{tbl} 1 tablet, Oral, ONCE, 1 dose, On Mon02/27/24 at 0715, Routine [facility] ceFAZolin (ANCEF) 2,000 mg in NaCl 0.9% (NS) 100 mL MINI-BAG 02-26 00:30: 00 02-26 18:27 :00 No 2000mg 2,000 mg, Intravenou s, Q8H ABX, 3 doses, First dose on Mon02/26/24 at 1930, Last dose on Mon02/27/24 at 1130, Administer over 30 Minutes, 100 mL, Reason for Anti-Infec tive: Surgical Prophylaxi s, Surgical Prophylaxi s: Orthopaedi c, Duration of therapy: within 24 hours of surgery [facility] lactated ringers IV infusion 500 mL 02-25 23:15: 00 Yes 500mL at 50 mL/hr, 500 mL, IV Infusion, CONTINUOUS , Starting on Mon02/26/24 at 1815, Until Discontinu ed, Routine, PACU [facility] sugammadex (BRIDION) injection 02-25 22:50: 00 02-25 23:30 :05 No IV Push, ONCE INTRA PROCEDURE, Starting on Mon02/26/24 at 1750, Until Mon02/26/24 at 1830, Routine, Intra-op [facility] ceFAZolin (ANCEF) injection 02-25 22:16: 00 02-25 23:30 :05 No Slow IV Push, ONCE INTRA PROCEDURE, Starting on Mon02/26/24 at 1716, Until Mon02/26/24 at 1830, FRANCK, Intra-op [facility] Transfuse Packed RBC (in units)~On hold for procedure; 02/26/24 7:15 AM; Infuse Each Unit Over: 2 Hours 02-25 22:00: 53 02-25 23:30 :05 No Routine [facility] electrolyte -A (PLASMALYTE -A) IV infusion 02-25 21:31: 00 02-25 23:30 :05 No IV Infusion, CONTINUOUS PRN, Starting on Mon02/26/24 at 1631, Until Mon02/26/24 at 1830, Routine, Intra-op [facility] rocuronium (ZEMURON) injection 02-25 21:29: 00 02-25 23:30 :05 No IV Push, ONCE INTRA PROCEDURE, Starting on Mon02/26/24 at 1629, Until Mon02/26/24 at 1830, Routine, Intra-op [facility] FENTanyl (PF) (SUBLIMAZE) injection 02-25 21:29: 00 02-25 23:30 :05 No Intravenou s, ONCE INTRA PROCEDURE, Starting on Mon02/26/24 at 1629, Until Mon02/26/24 at 1830, Routine, Intra-op [facility] dexamethaso ne (DECADRON PHOSPHATE) injection 02-25 21:27: 00 02-25 23:30 :05 No IV Push, ONCE INTRA PROCEDURE, Starting on Mon02/26/24 at 1627, Until Mon02/26/24 at 1830, Routine, Intra-op [facility] etomidate (AMIDATE) injection 02-25 21:27: 00 02-25 23:30 :05 No Slow IV Push, ONCE INTRA PROCEDURE, Starting on Mon02/26/24 at 1627, Until Mon02/26/24 at 1830, Routine, Intra-op [facility] lidocaine 1% (XYLOCAINE) 100 mg/10 mL (1 %) injection 02-25 21:26: 00 02-25 23:30 :05 No Intravenou s, ONCE INTRA PROCEDURE, Starting on Mon02/26/24 at 1626, Until Mon02/26/24 at 1830, Routine, Intra-op [facility] ketamine (KETALAR) 50 mg/5 mL (10 mg/mL) injection 02-25 21:26: 00 02-25 23:30 :05 No Intravenou s, ONCE INTRA PROCEDURE, Starting on Mon02/26/24 at 1626, Until Mon02/26/24 at 1830, Routine, Intra-op [facility] HYDROmorphO ne (DILAUDID) injection 02-25 21:24: 00 02-25 23:30 :05 No Slow IV Push, ONCE INTRA PROCEDURE, Starting on Mon02/26/24 at 1624, Until Mon02/26/24 at 1830, Routine, Intra-op [facility] lactated ringers IV infusion 02-25 21:06: 00 02-25 23:30 :05 No IV Infusion, CONTINUOUS PRN, Starting on Mon02/26/24 at 1606, Until Mon02/26/24 at 1830, Routine, Intra-op [facility] aspirin 325 mg tablet 02-25 20:14: 31 03-01 00:00 :00 No 325mg Take 1 tablet by mouth in the morning. [facility] HYDROcodone -acetaminop hen (NORCO 5) tablet 1 tablet 02-25 14:17: 15 02-28 14:29 :33 No 1{tbl} 1 tablet, Oral, Q6HPRN, Starting on 02/26/24 at 0917, Until Zari 02/29/24 at 0929, Routine, Pain (scale 7-10), Pain (scale 4-6) [facility] atorvastati n (LIPITOR) tablet 20 mg 02-25 02:00: 00 02-27 14:21 :19 No 20mg 20 mg, Oral, QHS, First dose on 02/25/24 at 2100, Until Discontinu ed, [facility] ([facility]OVUE 370-500 mL) injection 100 mL 02-24 21:27: 00 02-24 21:45 :00 No [id number] 100mL 100 mL, Intravenou s, ONCE, 1 dose, On Mon02/25/24 at 1645, [facility] lipase-prot ease-amylas e (CREON) 12,000-38,0 00 -60,000 unit capsule 2 capsule 02-24 17:00: 00 Yes 2{capsu le} 2 capsule, Oral, QNOON, First dose on 02/25/24 at 1200, Until Discontinu ed, Routine [facility] cholecalcif naresh (vitamin D3) tablet 5,000 Units 02-24 14:00: 00 Yes 5000U 5,000 Units, Oral, DAILY, First dose on 02/25/24 at 0900, Until Discontinu ed [facility] pantoprazol e (PROTONIX) EC tablet 40 mg 02-24 13:00: 00 Yes 40mg 40 mg, Oral, BID, First dose (after last modificati on) on 02/25/24 at 0800, Until Discontinu ed [facility] lipase-prot ease-amylas e (CREON) 12,000-38,0 00 -60,000 unit capsule 3 capsule 02-24 12:30: 00 Yes 3{capsu le} 3 capsule, Oral, BIDAC, First dose on 02/25/24 at 0730, Until Discontinu ed, Routine [facility] magnesium sulfate in water 2 gram/50 mL (4 %) infusion 2 g 02-24 11:15: 00 02-24 11:53 :00 No 2g 2 g, IV Piggyback, Administer over 60 Minutes, ONCE, 1 dose, On Mon02/25/24 at 0615, Routine [facility] Potassium Bicarb-Citr ic Acid (EFFER-K) effervescen t tablet 20 mEq 02-24 11:15: 00 02-24 10:48 :00 No 20meq 20 mEq, Oral, ONCE, 1 dose, On Mon02/25/24 at 0615, [facility]ine [facility] levothyroxi [facility] (SYNTHROID) tablet 112 mcg 02-24 11:00: 00 Yes 112ug 112 mcg, Oral, QAM-0600, First dose on Mon02/25/24 at 0600, Until Discontinu ed [facility] Potassium Bicarb-Citr ic Acid (EFFER-K) effervescen t tablet 40 mEq 02-24 06:00: 00 02-24 05:24 :00 No 40meq 40 mEq, Oral, ONCE, 1 dose, On Mon02/25/24 at 0100, Routine [facility] acetaminoph en-codeine (TYLENOL #3) 300-30 mg tablet 1 tablet 02-24 05:38: 03 02-25 14:17 :47 No 1{tbl} 1 tablet, Oral, Q6HPRN, Starting on Mon02/25/24 at 0038, Until Mon02/26/24 at 0917, Pain (scale 4-6), Pain (scale 7-10) [facility] HYDROcodone -acetaminop hen (NORCO 5) tablet 1 tablet 02-24 05:37: 49 02-25 14:17 :47 No 1{tbl} 1 tablet, Oral, Q6HPRN, Starting on 02/25/24 at 0037, Until Mon02/26/24 at 0917, Routine, Pain (scale 7-10) [facility] NaCl 0.9% (NS) bolus infusion 500 mL 02-24 05:00: 00 02-24 04:22 :29 No 500mL at 999 mL/hr, 500 mL, IV Piggyback, ONCE, 1 dose, On 02/25/24 at 0000, STAT [facility] lipase-prot ease-amylas e (CREON) 12,000-38,0 00 -60,000 unit capsule 1 capsule 02-24 04:52: 28 Yes 1{capsu le} 1 capsule, Oral, PRN - SEE INSTRUCTIO NS, Starting on 02/24/24 at 2352, Until Discontinu ed, Routine, with snacks [facility] acetaminoph en-codeine (TYLENOL #3) 300-30 mg tablet 1 tablet 02-24 03:57: 37 02-24 05:38 :53 No 1{tbl} 1 tablet, Oral, Q6HPRN, Starting on 02/24/24 at 2257, Until 02/25/24 at 0038, Pain (scale 7-10) [facility] acetaminoph en (TYLENOL) tablet 650 mg 02-24 03:50: 38 02-27 13:39 :25 No 650mg 650 mg, Oral, Q6HPRN, Starting on 02/24/24 at 2250, Until 02/28/24 at 0839, Routine, Pain (scale 1-3) [facility] silver nitrate applicator 1 Applicator 02-24 00:30: 00 02-23 23:45 :00 No 1{appli cator} 1 Applicator , Topical, ONCE, 1 dose, On 02/24/24 at 1930, Routine [facility] ondansetron (ZOFRAN (PF)) injection 4 mg 02-23 23:45: 00 02-23 23:45 :00 No 4mg 4 mg, Slow IV Push, ONCE, 1 dose, On 02/24/24 at 1845, FRANCK [facility] QUEtiapine (SEROQUEL) tablet 12.5 mg 02-02 02:00: 00 Yes 12.5mg 12.5 mg, Oral, QHS, First dose (after last modificati on) on Mon02/02/24 at 2100, Until Discontinu ed, Routine [facility] carvediloL (COREG) tablet 6.25 mg 02-02 01:00: 00 Yes 6.25mg 6.25 mg, Oral, BID MEALS, First dose (after last modificati on) on Mon02/02/24 at 2000, Until Discontinu ed, Routine [facility] apixaban (ELIQUIS) tablet 5 mg 02-02 01:00: 00 Yes 5mg 5 mg, Oral, BID, First dose on Mon02/02/24 at 1999, Until Discontinu ed, Routine, Indication s: Non-Valvul ar Atrial Fibrillati on [facility] ketorolac (TORADOL) injection 15 mg 02-01 18:00: 00 02-01 18:55 :00 No 15mg 15 mg, Slow IV Push, ONCE, 1 dose, On Mon02/02/24 at 1300, Routine [facility] enoxaparin (LOVENOX) injection 30 mg 02-01 01:00: 00 02-01 19:49 :57 No 30mg 30 mg, Subcutaneo us, Q12H ABX, First dose on Mon02/01/24 at 1999, Until Discontinu ed, Routine [facility] apixaban 5 mg tablet 02-01 00:00: 00 05-03 04:59 :00 Yes 1358 5mg Take 1 tablet by mouth in the morning and 1 tablet in the evening. Do all this for 90 days. Indication s: atrial fibrillati on [facility] traMADoL 50 mg tablet 02-01 00:00: 00 02-09 04:59 :00 Yes [id number] 50mg Take 1 tablet by mouth every 6 (six) hours as needed for Pain (scale 7-10) for up to 7 days. Indication s: acute pain [facility] aspirin tablet 650 mg 01-31 11:00: 00 01-31 11:52 :00 No 650mg 650 mg, Oral, ONCE, 1 dose, On Mon02/01/24 at 0600, Routine [facility] QUEtiapine (SEROQUEL) tablet 12.5 mg 01-31 01:00: 00 02-01 16:11 :28 No 12.5mg 12.5 mg, Oral, BID, First dose (after last modificati on) on Mon01/31/24 at 2000, Until Discontinu ed, [facility]ine [facility] sodium chloride tablet 500 mg 01-30 22:00: 00 Yes 500mg 500 mg, Oral, TID MEALS, First dose on Mon01/31/24 at 1700, Until Discontinu ed, Routine [facility] aspirin chewable tablet 81 mg 01-30 19:00: 00 01-30 21:31 :40 No 81mg 81 mg, Oral, DAILY, First dose on Mon01/31/24 at 1400, Until Discontinu ed, Routine [facility] enoxaparin (LOVENOX) injection 60 mg 01-30 16:00: 00 01-30 21:45 :35 No 1mg/kg 60 mg (rounded from 55.2 mg = 1 mg/kg ?55.2 kg), Subcutaneo us, Q12H ABX, First dose (after last modificati on) on Mon01/31/24 at 1100, Until Discontinu ed, Routine [facility] losartan (COZAAR) tablet 25 mg 01-30 15:00: 00 Yes 25mg 25 mg, Oral, DAILY, First dose on Mon01/31/24 at 1000, Until Discontinu ed, Routine [facility] labetaloL (NORMODYNE) 5 mg/mL injection 10 mg 01-30 14:58: 04 Yes 10mg 10 mg, Slow IV Push, PRN - SEE INSTRUCTIO NS, Starting on Mon01/31/24 at 0958, Until Discontinu ed, Routine, PRN for SBP goal >160 [facility] amLODIPine (NORVASC) tablet 5 mg 01-30 14:00: 00 Yes 5mg 5 mg, Oral, DAILY, First dose on Mon01/31/24 at 0900, Until Discontinu ed, Routine [facility] carvediloL (COREG) tablet 3.125 mg 01-30 13:00: 00 02-01 19:56 :59 No 3.125mg 3.125 mg, Oral, BID MEALS, First dose on Mon01/31/24 at 0800, Until Discontinu ed, Routine [facility] QUEtiapine (SEROQUEL) tablet 25 mg 01-30 13:00: 00 01-30 13:53 :46 No 25mg 25 mg, Oral, BID, First dose (after last modificati on) on Mon01/31/24 at 0800, Until Discontinu ed, Routine [facility] haloperidol lactate (HALDOL) injection 0.5 mg 01-30 02:13: 07 02-01 16:11 :42 No .5mg 0.5 mg, Slow IV Push, Q6HPRN, Starting on Mon01/30/24 at 2113, Until Mon02/02/24 at 1111, Routine, Psychosis [facility] acetaminoph en (OFIRMEV) IV piggyback 1,000 mg 01-29 21:13: 00 01-29 21:43 :00 No 1000mg 1,000 mg, IV Piggyback, at 400 mL/hr Administer over 15 Minutes, ONCE, 1 dose, On Mon01/30/24 at 1615, STAT, Is the patient strict NPO and unable to tolerate oral medication s? Yes [facility] furosemide (LASIX) injection 10 mg 01-29 17:00: 00 01-29 16:36 :43 No 10mg 10 mg, Slow IV Push, Q6H, First dose on Mon01/30/24 at 1200, Until Discontinu ed, Routine [facility] [facility] sennosides- docusate sodium (SENOKOT-S) 8.6-50 mg per tablet 1 tablet 01-29 14:00: 00 Yes 1{tbl} 1 tablet, Oral, DAILY, First dose on Mon01/30/24 at 0900, Until Discontinu ed, Routine [facility] haloperidol lactate (HALDOL) injection 0.5 mg 01-29 12:45: 00 01-29 12:43 :00 No .5mg 0.5 mg, Slow IV Push, ONCE, 1 dose, On Mon01/30/24 at 0745, Routine [facility] haloperidol lactate (HALDOL) injection 2 mg 01-29 12:38: 00 01-29 12:43 :00 No 2mg 2 mg, Slow IV Push, ONCE, 1 dose, On Mon01/30/24 at 0745, STAT [facility] QUEtiapine (SEROQUEL) tablet 12.5 mg 01-29 11:49: 00 01-29 12:01 :00 No 12.5mg 12.5 mg, Oral, ONCE, 1 dose, On Mon01/30/24 at 0700, Routine [facility] QUEtiapine (SEROQUEL) tablet 12.5 mg 01-29 11:00: 00 01-29 16:38 :10 No 12.5mg 12.5 mg, Oral, Q12HA2, First dose (after last modificati on) on Mon01/30/24 at 0600, Until Discontinu ed, Routine [facility] ipratropium -albuteroL (DUONEB) 0.5 mg-3 mg(2.5 mg base)/3 mL nebulizer solution 3 mL 01-29 10:30: 00 Yes 3mL 3 mL, Inhalation , QIDPRN, Starting on Mon01/30/24 at 0530, Until Discontinu ed, Routine, Wheezing [facility] enoxaparin (LOVENOX) injection 30 mg 01-29 04:00: 00 01-30 14:44 :06 No 30mg 30 mg, Subcutaneo us, Q12H ABX, First dose (after last modificati on) on Mon01/29/24 at 2300, Until Discontinu ed, Routine [facility] ondansetron (ZOFRAN (PF)) injection 4 mg 01-28 03:00: 00 01-28 02:18 :00 No 4mg 4 mg, Slow IV Push, ONCE, On Mon01/28/24 at 2200, For 1 dose, Doses of ondansetro n 16 mg and above need to be administer ed via IV piggyback. For Dose >=24mg ECG monitoring is advisable. [facility] NORepinephr ine (LEVOPHED) 4 mg/250 mL in 0.9% NaCl infusion 01-28 01:50: 09 01-28 15:43 :06 No .05ug/k g/min 0.05-0.5 mcg/kg/min ?55.2 kg (10.35-103 .5 mL/hr), IV Infusion, TITRATE, SBP 180-200, Starting on Mon01/28/24 at 2050, For 24 hours, Initiate titration at 0.05 mcg/kg/min . Increase by 0.01 mcg/kg/min every 30 seconds to 5 minutes as needed to reach and maintain goal blood pressure. Maximum dose = 0.5 mcg/kg/min . If goal not maintained at maximum allowed dose, contact prescriber . Administer only one peripheral intravenou s vasopresso r at a time. [facility] magnesium sulfate in water 2 gram/50 mL (4 %) infusion 2 g 01-28 01:00: 00 01-28 02:11 :00 No 2g 2 g, IV Piggyback, Administer over 60 Minutes, ONCE, 1 dose, On Mon01/28/24 at 2000, FRACNK [facility] NaCl 0.9% (NS) IV infusion 1,000 mL 01-27 23:45: 00 01-28 01:32 :09 No 1000mL at 500 mL/hr, IV Infusion, ONCE, 1 dose, On Mon01/28/24 at 1845, Routine [facility] ceFAZolin (ANCEF) 2,000 mg in NaCl 0.9% (NS) 100 mL MINI-BAG 01-27 22:00: 00 01-28 13:10 :00 No 2000mg 2,000 mg, Intravenou s, Q8H ABX, 3 doses, First dose on Mon01/28/24 at 1700, Last dose on Mon01/29/24 at 0900, Administer over 30 Minutes, 100 mL, Reason for Anti-Infec tive: Surgical Prophylaxi s, Surgical Prophylaxi s: Orthopaedi c, Duration of therapy: within 24 hours of surgery [facility] sugammadex (BRIDION) injection 01-27 20:38: 00 01-27 21:17 :59 No IV Push, ONCE INTRA PROCEDURE, Starting on Mon01/28/24 at 1538, Until Mon01/28/24 at 1617, Routine, Intra-op [facility] ondansetron (ZOFRAN (PF)) injection 01-27 19:57: 00 01-27 21:17 :59 No Slow IV Push, ONCE INTRA PROCEDURE, Starting on Mon01/28/24 at 1457, Until Mon01/28/24 at 1617, Routine, Intra-op [facility] acetaminoph en (OFIRMEV) IV piggyback 01-27 19:56: 00 01-27 21:17 :59 No IV Infusion, Administer over 15 Minutes, ONCE INTRA PROCEDURE, Starting on Mon01/28/24 at 1456, Until Mon01/28/24 at 1617, Routine, Intra-op [facility] vancomycin (VANCOCIN) injection 01-27 19:24: 00 01-27 21:29 :44 No PRN, Starting on Mon01/28/24 at 1424, Until Mon01/28/24 at 1629, FRANCK, Intra-op [facility] polymyxin B injection 01-27 19:23: 00 01-27 21:29 :44 No PRN, Starting on Mon01/28/24 at 1423, Until Mon01/28/24 at 1629, FRANCK, Intra-op [facility] ePHEDrine 25 mg/5 mL (5 mg/mL) syringe 01-27 19:11: 00 01-27 21:17 :59 No Slow IV Push, ONCE INTRA PROCEDURE, Starting on 01/28/24 at 1411, Until 01/28/24 at 1617, Routine, [facility]-op [facility] HYDROmorphO ne (DILAUDID) injection 01-27 19:10: 00 01-27 21:17 :59 No Slow IV Push, ONCE INTRA PROCEDURE, Starting on 01/28/24 at 1410, Until 01/28/24 at 1617, Routine, Intra-op [facility] ceFAZolin (ANCEF) injection 01-27 18:20: 00 01-27 21:17 :59 No Slow IV Push, ONCE INTRA PROCEDURE, Starting on 01/28/24 at 1320, Until 01/28/24 at 1617, FRANCK, Intra-op [facility] EPINEPHrine 1:1,000 (1 mg/mL) (ADRENALIN) injection 01-27 18:14: 00 01-27 21:17 :59 No Infiltrati on, ONCE INTRA PROCEDURE, Starting on 01/28/24 at 1314, Until 01/28/24 at 1617, Routine, Intra-op [facility] dexamethaso ne (DECADRON PHOSPHATE) injection 01-27 18:14: 00 01-27 21:17 :59 No Slow IV Push, ONCE INTRA PROCEDURE, Starting on 01/28/24 at 1314, Until 01/28/24 at 1617, Routine, [facility]-op [facility] bupivacaine (preserv free) (SENSORCAIN E MPF) 0.25 % (2.5 mg/mL) injection 01-27 18:14: 00 01-27 21:17 :59 No Infiltrati on, ONCE INTRA PROCEDURE, Starting on 01/28/24 at 1314, Until 01/28/24 at 1617, Routine, [facility] NORepinephr ine (LEVOPHED) 4 mg in NaCl 0.9% (NS) 250 mL infusion 01-27 18:01: 00 01-27 21:17 :59 No IV Infusion, CONTINUOUS PRN, Starting on Mon01/28/24 at 1301, Intra-op [facility] PHENYLephri ne 1000 mcg/10 mL in 0.9% NaCl syringe 01-27 17:56: 00 01-27 21:17 :59 No Slow IV Push, ONCE INTRA PROCEDURE, Starting on Mon01/28/24 at 1256, Until Mon01/28/24 at 1617, Routine, Intra-op [facility] dexamethaso ne (DECADRON PHOSPHATE) injection 01-27 17:56: 00 01-27 21:17 :59 No IV Push, ONCE INTRA PROCEDURE, Starting on Mon01/28/24 at 1256, Until Mon01/28/24 at 1617, Routine, Intra-op [facility] rocuronium (ZEMURON) injection 01-27 17:56: 00 01-27 21:17 :59 No IV Push, ONCE INTRA PROCEDURE, Starting on Mon01/28/24 at 1256, Until Mon01/28/24 at 1617, Routine, Intra-op [facility] propofoL IV infusion 01-27 17:55: 00 01-27 21:17 :59 No Slow IV Push, ONCE INTRA PROCEDURE, Starting on Mon01/28/24 at 1255, Until Mon01/28/24 at 1617, Routine, Intra-op [facility] lactated ringers IV infusion 01-27 17:52: 00 01-27 21:17 :59 No IV Infusion, CONTINUOUS PRN, Starting on Mon01/28/24 at 1252, Until Mon01/28/24 at 1617, Routine, Intra-op [facility] lidocaine 1% (XYLOCAINE) 100 mg/10 mL (1 %) injection 01-27 17:49: 00 01-27 21:17 :59 No Slow IV Push, ONCE INTRA PROCEDURE, Starting on Mon01/28/24 at 1249, Until Mon01/28/24 at 1617, Routine, Intra-op [facility] ketamine (KETALAR) 50 mg/5 mL (10 mg/mL) injection 01-27 17:49: 00 01-27 21:17 :59 No Intravenou s, ONCE INTRA PROCEDURE, Starting on Mon01/28/24 at 1249, Until Mon01/28/24 at 1617, Routine, Intra-op [facility] FENTanyl PF (SUBLIMAZE (PF)) injection 01-27 17:35: 00 01-27 21:17 :59 No Slow IV Push, ONCE INTRA PROCEDURE, Starting on Mon01/28/24 at 1235, Until Mon01/28/24 at 1617, Routine, Intra-op [facility] labetaloL (NORMODYNE) 5 mg/mL injection 10 mg 01-27 16:14: 39 01-30 14:58 :58 No 10mg 10 mg, Slow IV Push, [id number], 5 doses, Starting on Mon01/28/24 at 1114, Until Mon01/31/24 at 0958, Routine, Hypertensi ve Crisis SBP > 220 - See Admin Instructio ns [facility] magnesium sulfate in water 4 gram/50 mL (8 %) IV Piggyback 4 g 01-27 11:45: 00 01-27 13:24 :00 No 4g 4 g, IV Piggyback, at 25 mL/hr Administer over 120 Minutes, ONCE, 1 dose, On Mon01/28/24 at 0645, Routine [facility] atorvastati n (LIPITOR) tablet 20 mg 01-27 02:00: 00 Yes 20mg 20 mg, Oral, QHS, First dose (after last modificati on) on 01/27/24 at 2100, Until Discontinu ed, Routine [facility] Saline Bubble Study 01-26 17:09: 21 Yes [id number] 6mL 6 mL, Injection, SEE-INSTRU CTIONS, Starting on [facility] 01/27/24 at 1209, Until Discontinu ed, Routine [facility] enoxaparin (LOVENOX) injection 40 mg 01-26 13:45: 00 01-26 13:35 :00 No 40mg 40 mg, Subcutaneo us, ONCE, 1 dose, On 01/27/24 at 0845, Routine [facility] Sliding Scale Insulin - Lispro (HumaLOG) 01-26 13:00: 00 Yes [facility] ipratropium -albuteroL (DUONEB) 0.5 mg-3 mg(2.5 mg base)/3 mL nebulizer solution 3 mL 01-26 13:00: 00 01-29 10:25 :01 No 3mL 3 mL, Inhalation , QID, First dose (after last modificati on) on 01/27/24 at 0800, Until Discontinu ed, Routine [facility] HYDROcodone -acetaminop hen (NORCO 5) 5-325 mg tablet 1 tablet 01-26 12:39: 26 01-31 22:09 :13 No 1{tbl} 1 tablet, Oral, Q4HPRN, Starting on 01/27/24 at 0739, Until [facility] 02/01/24 at 1709, Routine, Pain (scale 1-3) [facility] ondansetron (ZOFRAN (PF)) injection 4 mg 01-26 12:30: 00 01-26 11:41 :00 No 4mg 4 mg, Slow IV Push, ONCE, On 01/27/24 at 0730, For 1 dose, Doses of ondansetro n 16 mg and above need to be administer ed via IV piggyback. For Dose >=24mg ECG monitoring is advisable. [facility] traMADoL (ULTRAM) tablet 50 mg 01-26 11:00: 14 Yes 50mg 50 mg, Oral, Q6HPRN, Starting on 01/27/24 at 0600, Until Discontinu ed, Routine, Pain (scale 7-10) [facility] levothyroxi ne (SYNTHROID) tablet 125 mcg 01-26 11:00: 00 Yes 125ug 125 mcg, Oral, QAM-0600, First dose on 01/27/24 at 0600, Until Discontinu ed [facility] acetaminoph en (TYLENOL) tablet 1,000 mg 01-26 09:49: 23 Yes 1000mg 1,000 mg, Oral, Q6HPRN, Starting on [facility] 01/27/24 at 0449, Until Discontinu ed, Routine, Pain (scale 1-3) [facility] clopidogreL (PLAVIX) 300 mg tablet 300 mg 01-26 09:45: 00 01-26 10:31 :00 No 300mg 300 mg, Oral, ONCE, 1 dose, On [facility] 01/27/24 at 0445, FRANCK [facility] aspirin tablet 325 mg 01-26 09:45: 00 01-26 10:39 :00 No 325mg 325 mg, Oral, ONCE, 1 dose, On [facility] 01/27/24 at 0445, FRANCK [facility] iopamidol (ISOVUE 300-100 mL) injection 100 mL 01-26 08:30: 00 01-26 08:17 :00 No [id number] 100mL 100 mL, Intravenou s, ONCE, 1 dose, On [facility] 01/27/24 at 0330, Routine [facility] nitroglycer in 50 mg in D5W 250 mL infusion RTU 01-26 08:02: 00 01-27 21:29 :44 No CONTINUOUS PRN, Starting on [facility] 01/27/24 at 0302, Intra-op [facility] verapamiL (ISOPTIN) injection 01-26 08:02: 00 01-27 21:29 :44 No PRN, Starting on [facility] 01/27/24 at 0302, Until 01/28/24 at 1629, Routine, Intra-op [facility] heparin 1,000 unit/mL injection 01-26 08:02: 00 01-27 21:29 :44 No Slow IV Push, PRN, Starting on [facility] 01/27/24 at 0302, Until 01/28/24 at 1629, Routine, Intra-op [facility] niCARdipine (CARDENE I.V.) 40 mg in NaCL 200 mL (RTU) infusion 01-26 07:59: 19 01-31 10:22 :24 No 2.5mg/h 2.5-15 mg/hr (12.5-75 mL/hr), IV Infusion, TITRATE, SBP Goal < 180 mmHg, Starting on 01/27/24 at 0259, Initiate infusion at 2.5 mg/hr. Titrate by 2.5 mg/hr every 5 minutes to 15 minutes as needed to achieve and maintain goal blood pressure. Maximum dose = 15 mg/hr. If goal not maintained at maximum allowed dose, contact prescriber . [facility] lidocaine 1% (PF) (XYLOCAINE) injection 01-26 07:54: 00 01-27 21:29 :44 No PRN, Starting on 01/27/24 at 0254, Until 01/28/24 at 1629, Routine, Intra-op [facility] NaCl 0.9% (NS) 1000 mL + KCL 20 mEq 01-26 07:45: 00 01-28 22:10 :26 No IV Infusion, at 75 mL/hr, CONTINUOUS , Starting on 01/27/24 at 0245, Until 01/29/24 at 1710, Routine [facility] FENTanyl PF (SUBLIMAZE (PF)) injection 25 mcg 01-26 07:30: 00 01-26 06:45 :00 No 25ug 25 mcg, Slow IV Push, ONCE, 1 dose, On 01/27/24 at 0230, Routine [facility] labetaloL (NORMODYNE) 5 mg/mL injection 10 mg 01-26 06:18: 01 01-30 14:58 :58 No 10mg 10 mg, Slow IV Push, PRN - SEE INSTRUCTIO NS, Starting on Mon01/27/24 at 0118, Until Mon01/31/24 at 0958, Routine, PRN for BP goal < 185/110 prior to thrombolyt ic administra tion and <180/105 for 24 hours after administra tion. [facility]UE 370-500 mL) injection 50 mL 01-26 05:35: 00 01-26 05:30 :00 No [id number] 50mL 50 mL, Intravenou s, ONCE, 1 dose, On 01/27/24 at 0045, Routine [facility] iopamidol (ISOVUE 370-500 mL) injection 80 mL 01-26 05:34: 00 01-26 05:25 :00 No [id number] 80mL 80 mL, Intravenou s, ONCE, 1 dose, On 01/27/24 at 0045, Routine [facility] NaCl 0.9% (NS) injection 5 mL 01-26 05:06: 25 Yes 5mL 5 mL, Slow IV Push, PRN - SEE INSTRUCTIO NS, Starting on 01/27/24 at 0006, Until Discontinu ed, 10 mL [facility] iopamidol (ISOVUE 370-500 mL) injection 105 mL 01-21 20:30: 00 01-21 19:44 :00 No [id number] 105mL 105 mL, Intravenou s, ONCE, 1 dose, On 01/22/24 at 1530, Routine [facility] Levothyroxi ne 112 mcg capsule 01-01 12:30: 37 Yes 125ug Take 125 mcg by mouth. [facility] omeprazole 20 mg capsule 01-01 12:30: 37 Yes 40mg Take 2 capsules by mouth in the morning. [facility] mesalamine 1.2 gram EC tablet 01-01 12:30: 37 Yes 1.2g Take 1 tablet by mouth 4 (four) times daily. [facility] hydrALAZINE 50 mg tablet 01-01 12:30: 37 Yes 50mg Take 1 tablet by mouth in the morning and 1 tablet in the evening. [facility] budesonide 3 mg 24 hr capsule 01-01 12:30: 37 Yes 9mg Take 3 capsules by mouth every morning. [facility] carvediloL 25 mg tablet 01-01 12:30: 37 Yes 25mg Take 1 tablet by mouth in the morning and 1 tablet in the evening. Take with meals. [facility] calcium/mag nesium/zinc (CALCIUM-MA GNESUIUM-ZI NC) 333-133-5 mg Tab 01-01 12:30: 37 Yes 1{tbl} Take 1 tablet by mouth every evening. [facility] Cholecalcif naresh, Vitamin D3, 125 mcg (5,000 unit) tablet 01-01 12:30: 37 Yes 5000U Take 1 tablet by mouth in the morning. [facility] cyanocobala min, vitamin B-12, (VITAMIN B-12) 5,000 mcg/mL Drop 01-01 12:30: [address] 5,000 mcg under the tongue in the morning. [facility] methscopola mine 5 mg tablet 01-01 12:30: 37 Yes 5mg Take 1 tablet by mouth at bedtime. [facility] losartan 25 mg tablet 01-01 12:30: 37 Yes 25mg Take 1 tablet by mouth in the morning. [facility] vit C/E/zinc ox/sonia/lut /zeax (ICAPS AREDS2 ORAL) 01-01 12:30: 37 03-01 00:00 :00 Yes 1{tbl} Take by mouth. [facility] atorvastati n 20 mg tablet 01-01 12:30: 37 03-01 00:00 :00 No 20mg Take 1 tablet by mouth at bedtime. [facility] ondansetron (ZOFRAN) 4 mg tablet 01-01 12:30: 37 03-01 00:00 :00 No 4mg Take 1 tablet by mouth every 8 (eight) hours as needed. [facility] aspirin 81 mg chewable tablet 01-01 12:30: 37 02-01 00:00 :00 No 81mg Take 1 tablet by mouth in the morning. [facility] sodium chloride (NS) injection 11-28 17:48: 00 11-28 17:57 :02 No PRN, Starting on Mon11/29/23 at 1248, Until Mon11/29/23 at 1257, Routine, Intra-op [facility] neomycin-po lymyxin-dex amethasone (MAXITROL) 3.5 mg/g-10,000 unit/g-0.1 % ophthalmic ointment 11-28 17:48: 00 11-28 17:57 :02 No PRN, Starting on Mon11/29/23 at 1248, Until Mon11/29/23 at 1257, Routine, Intra-op [facility] dexamethaso ne (DECADRON PHOSPHATE) injection 11-28 17:48: 00 11-28 17:57 :02 No PRN, Starting on Mon11/29/23 at 1248, Until Mon11/29/23 at 1257, Routine, Intra-op [facility] ceFAZolin (ANCEF) injection 11-28 17:48: 00 11-28 17:57 :02 No PRN, Starting on Mon11/29/23 at 1248, Until Mon11/29/23 at 1257, FRANCK, Intra-op [facility] carbachoL (MIOSTAT) 0.01 % intraocular injection 11-28 17:47: 00 11-28 17:57 :02 No PRN, Starting on Mon11/29/23 at 1247, Until Mon11/29/23 at 1257, Routine, Intra-op [facility] EPINEPHrine 1:1,000 (1 mg/mL) (ADRENALIN) injection 11-28 17:38: 00 11-28 17:57 :02 No PRN, Starting on Mon11/29/23 at 1238, Until Mon11/29/23 at 1257, Routine, Intra-op [facility] chondroitin sulf-sod hyaluronate (DUOVISC VISCO ELASTIC) intraocular injection 11-28 17:38: 00 11-28 17:57 :02 No PRN, Starting on Mon11/29/23 at 1238, Until Mon11/29/23 at 1257, Routine, Intra-op [facility] balanced salt irrig soln comb1 (BSS PLUS) ophthalmic solution 500 mL bag 11-28 17:37: 00 11-28 17:57 :02 No PRN, Starting on Mon11/29/23 at 1237, Until Mon11/29/23 at 1257, Routine, Intra-op [facility] water for irrigation irrigation solution 11-28 17:30: 00 11-28 17:57 :02 No PRN, Starting on Mon11/29/23 at 1230, Until Mon11/29/23 at 1257, Routine, Intra-op [facility] Hyaluronida se, Human Recomb. (HYLENEX) injection 11-28 17:28: 00 11-28 17:57 :02 No PRN, Starting on Mon11/29/23 at 1228, Until Mon11/29/23 at 1257, Routine, Intra-op [facility] eye block syringe 11 mL 11-28 17:28: 00 11-28 17:57 :02 No PRN, Starting on Mon11/29/23 at 1228, Until Mon11/29/23 at 1257, Intra-op [facility] zinc sulfate (ZINC-220 ORAL) 11-28 13:32: 27 Yes 1{tbl} Take 1 tablet by mouth in the morning. [facility] Levothyroxi ne 112 mcg capsule 11-28 13:32: 27 Yes 125ug Take 125 mcg by mouth. [facility] omeprazole 20 mg capsule 11-28 13:32: 27 Yes 40mg Take 2 capsules by mouth in the morning. [facility] mesalamine 1.2 gram EC tablet 11-28 13:32: 27 Yes 1.2g Take 1 tablet by mouth 4 (four) times daily. [facility] hydrALAZINE 50 mg tablet 11-28 13:32: 27 Yes 50mg Take 1 tablet by mouth in the morning and 1 tablet in the evening. [facility] budesonide 3 mg 24 hr capsule 11-28 13:32: 27 Yes 9mg Take 3 capsules by mouth every morning. [facility] carvediloL 25 mg tablet 11-28 13:32: 27 Yes 25mg Take 1 tablet by mouth in the morning and 1 tablet in the evening. Take with meals. [facility] aspirin 81 mg chewable tablet 11-28 13:32: 27 Yes 81mg Take 1 tablet by mouth in the morning. [facility] calcium/mag nesium/zinc (CALCIUM-MA GNESUIUM-ZI NC) 333-133-5 mg Tab 11-28 13:32: 27 Yes 1{tbl} Take 1 tablet by mouth every evening. [facility] Cholecalcif naresh, Vitamin D3, 125 mcg (5,000 unit) tablet 11-28 13:32: 27 Yes 5000U Take 1 tablet by mouth in the morning. [facility] cyanocobala min, vitamin B-12, (VITAMIN B-12) 5,000 mcg/mL Drop 11-28 13:32: [address] 5,000 mcg under the tongue in the morning. [facility] methscopola mine 5 mg tablet 11-28 13:32: 27 Yes 5mg Take 1 tablet by mouth at bedtime. [facility] atorvastati n 20 mg tablet 11-28 13:32: 27 Yes 20mg Take 1 tablet by mouth at bedtime. [facility] ondansetron (ZOFRAN) 4 mg tablet 11-28 13:32: 27 Yes 4mg Take 1 tablet by mouth every 8 (eight) hours as needed. [facility] losartan 25 mg tablet 11-28 13:32: 27 Yes 25mg Take 1 tablet by mouth in the morning. [facility] BUDESONIDE ORAL 11-28 13:32: 27 Yes 3mg Take 3 mg by mouth in the morning. Pt takes 2 in the morning and 1 at night. [facility] VITAMIN A ORAL 11-28 13:32: Yes [id number] Take 25,000 Units by mouth in the morning. [facility] ALPRAZolam (XANAX) 0.25 mg tablet 11-28 13:32: 27 02-01 00:00 :00 No .25mg Take 0.25 mg by mouth once now. [facility] neomycin-po lymyxin-dex amethasone (MAXITROL) 3.5 mg/g-10,000 unit/g-0.1 % ophthalmic ointment 10-24 18:44: 00 10-24 19:21 :27 No PRN, Starting on Mon10/25/23 at 1344, Until Mon10/25/23 at 1421, Routine, Intra-op [facility] sodium chloride (NS) injection 10-24 18:42: 00 10-24 19:21 :27 No PRN, Starting on Mon10/25/23 at 1342, Until Mon10/25/23 at 1421, Routine, Intra-op [facility] dexamethaso ne (DECADRON PHOSPHATE) injection 10-24 18:42: 00 10-24 19:21 :27 No PRN, Starting on Mon10/25/23 at 1342, Until Mon10/25/23 at 1421, Routine, Intra-op [facility] ceFAZolin (ANCEF) injection 10-24 18:42: 00 10-24 19:21 :27 No PRN, Starting on Mon10/25/23 at 1342, Until Mon10/25/23 at 1421, FRANCK, Intra-op [facility] carbachoL (MIOSTAT) 0.01 % intraocular injection 10-24 18:41: 00 10-24 19:21 :27 No PRN, Starting on Mon10/25/23 at 1341, Until Mon10/25/23 at 1421, Routine, Intra-op [facility] EPINEPHrine 1:1,000 (1 mg/mL) (ADRENALIN) injection 10-24 18:29: 00 10-24 21:21 :51 No PRN, Starting on Mon10/25/23 at 1329, Until Mon10/25/23 at 1621, Routine, Intra-op [facility] chondroitin sulf-sod hyaluronate (DUOVISC VISCO ELASTIC) intraocular injection 10-24 18:29: 00 10-24 19:21 :27 No PRN, Starting on Mon10/25/23 at 1329, Until Mon10/25/23 at 1421, Routine, Intra-op [facility] balanced salt irrig soln comb1 (BSS PLUS) ophthalmic solution 500 mL bag 10-24 18:29: 00 10-24 19:21 :27 No PRN, Starting on Mon10/25/23 at 1329, Until Mon10/25/23 at 1421, Routine, Intra-op [facility] water for irrigation irrigation solution 10-24 18:25: 00 10-24 19:21 :27 No PRN, Starting on Mon10/25/23 at 1325, Until Mon10/25/23 at 1421, Routine, Intra-op [facility] Hyaluronida se, Human Recomb. (HYLENEX) injection 10-24 18:22: 00 10-24 19:21 :27 No PRN, Starting on Mon10/25/23 at 1322, Until Mon10/25/23 at 1421, Routine, Intra-op [facility] eye block syringe 11 mL 10-24 18:22: 00 10-24 19:21 :27 No PRN, Starting on Mon10/25/23 at 1322, Until Mon10/25/23 at 1421, Intra-op [facility] cyclopent 1%-tropic 1%-phenyl 2.5%-ketor 0.5% (MYDRIATIC #5) ophthalmic solution syringe 0.5 mL 10-24 16:45: 00 10-24 16:53 :00 No .5mL 0.5 mL, Left Eye, ONCE, 1 dose, On Mon10/25/23 at 1145, Routine, DSU Pre-op [facility] lactated ringers IV infusion 1,000 mL 10-24 16:45: 00 10-24 16:53 :00 No 1000mL at 42 mL/hr, 1,000 mL, IV Infusion, ONCE, 1 dose, On Mon10/25/23 at 1145, Routine, DSU Pre-op [facility] Levothyroxi ne 112 mcg capsule 08-15 15:23: 52 Yes 125ug Take 125 mcg by mouth. [facility] omeprazole 20 mg capsule 08-15 15:23: 52 Yes 40mg Take 2 capsules by mouth in the morning. [facility] mesalamine 1.2 gram EC tablet 08-15 15:23: 52 Yes 1.2g Take 1 tablet by mouth 4 (four) times daily. [facility] hydrALAZINE 50 mg tablet 08-15 15:23: 52 Yes 50mg Take 1 tablet by mouth in the morning and 1 tablet in the evening. [facility] methscopola mine 5 mg tablet 08-15 15:23: 52 Yes 5mg Take 1 tablet by mouth at bedtime. [facility] atorvastati n 20 mg tablet 08-15 15:23: 52 Yes 20mg Take 1 tablet by mouth at bedtime. [facility] losartan 25 mg tablet 08-15 15:23: 52 Yes 25mg Take 1 tablet by mouth in the morning. [facility] lipase-prot ease-amylas e 12,000-38,0 00 -60,000 unit capsule 08-15 00:00: 00 Yes [id number] 2{capsu le} Take 2 capsules by mouth in the morning and 2 capsules at noon and 2 capsules in the evening. Take with meals. [facility] calcium/mag nesium/zinc (CALCIUM-MA GNESUIUM-ZI NC) 333-133-5 mg Tab 07-12 12:19: 54 Yes Take by mouth. [facility] Cholecalcif naresh, Vitamin D3, 125 mcg (5,000 unit) tablet 07-12 12:19: 54 Yes Take by mouth. [facility] cyanocobala min, vitamin B-12, (VITAMIN B-12) 5,000 mcg/mL Drop 07-12 12:19: [address] under the tongue. [facility] ALPRAZolam (XANAX) 0.25 mg tablet 07-12 12:19: 54 Yes .25mg Take 0.25 mg by mouth once now. [facility] methscopola mine 5 mg tablet 07-12 12:19: 54 Yes 5mg Take 1 tablet by mouth at bedtime. [facility] VITAMIN A ORAL 07-12 12:19: 54 Yes [id number] Take 25,000 Units by mouth in the morning. [facility] atorvastati n 20 mg tablet 07-12 12:19: 54 Yes 20mg Take 1 tablet by mouth at bedtime. [facility] ondansetron (ZOFRAN) 4 mg tablet 07-12 12:19: 54 Yes 4mg Take 1 tablet by mouth every 8 (eight) hours as needed. [facility] losartan 25 mg tablet 07-12 12:19: 54 Yes 25mg Take 1 tablet by mouth in the morning. [facility] Levothyroxi ne 112 mcg capsule 07-12 12:19: 54 Yes 125ug Take 125 mcg by mouth. [facility] omeprazole 20 mg capsule 07-12 12:19: 54 Yes 40mg Take 2 capsules by mouth in the morning. [facility] mesalamine 1.2 gram EC tablet 07-12 12:19: 54 Yes 1.2g Take 1 tablet by mouth 4 (four) times daily. [facility] hydrALAZINE 50 mg tablet 07-12 12:19: 54 Yes 50mg Take 1 tablet by mouth in the morning and 1 tablet in the evening. [facility] budesonide 3 mg 24 hr capsule 07-12 12:19: 54 Yes 9mg Take 3 capsules by mouth every morning. [facility] carvediloL 25 mg tablet 07-12 12:19: 54 Yes 25mg Take 1 tablet by mouth in the morning and 1 tablet in the evening. Take with meals. [facility] aspirin 81 mg chewable tablet 07-12 12:19: 54 Yes 81mg Take 1 tablet by mouth in the morning. [facility] Levothyroxi ne 112 mcg capsule 2022-07 14:58: 59 Yes 125ug Take 125 mcg by mouth. [facility] calcium/mag nesium/zinc (CALCIUM-MA GNESUIUM-ZI NC) 333-133-5 mg Tab 2022-07 14:58: 59 Yes Take by mouth. [facility] Cholecalcif naresh, Vitamin D3, 125 mcg (5,000 unit) tablet 2022-07 14:58: 59 Yes Take by mouth. [facility] cyanocobala min, vitamin B-12, (VITAMIN B-12) 5,000 mcg/mL Drop 2022-07 14:58: [address] under the tongue. [facility] methscopola mine 5 mg tablet 2022-07 14:58: 59 Yes 5mg Take 1 tablet by mouth at bedtime. [facility] vit C/E/zinc ox/sonia/lut /zeax (ICAPS AREDS2 ORAL) 2022-07 14:58: 59 Yes 3mg Take by mouth. [facility] atorvastati n 20 mg tablet 2022-07 14:58: 59 Yes 20mg Take 1 tablet by mouth at bedtime. [facility] ondansetron (ZOFRAN) 4 mg tablet 2022-07 14:58: 59 Yes 4mg Take 1 tablet by mouth every 8 (eight) hours as needed. [facility] losartan 25 mg tablet 2022-07 14:58: 59 Yes 25mg Take 1 tablet by mouth in the morning. [facility] omeprazole 20 mg capsule 2022-07 14:54: 28 Yes 40mg Take 2 capsules by mouth in the morning. [facility] mesalamine 1.2 gram EC tablet 2022-07 14:54: 28 Yes 1.2g Take 1 tablet by mouth 4 (four) times daily. [facility] hydrALAZINE 50 mg tablet 2022-07 14:54: 28 Yes 50mg Take 1 tablet by mouth in the morning and 1 tablet in the evening. [facility] budesonide 3 mg 24 hr capsule 2022-07 14:54: 28 Yes 9mg Take 3 capsules by mouth every morning. [facility] carvediloL 25 mg tablet 2022-07 14:54: 28 Yes 25mg Take 1 tablet by mouth in the morning and 1 tablet in the evening. Take with meals. [facility] aspirin 81 mg chewable tablet 2022-07 14:54: 28 Yes 81mg Take 1 tablet by mouth in the morning. [facility] cholestyram ine 4 gram packet 2022-07 00:00: 00 02-23 00:00 :00 No MIX AND DRINK 2 PACKETS BY MOUTH TWICE A DAY (MONTH SUPPLY) [facility] hyoscyamine sulfate 0.125 mg sublingual tablet 2022-07 00:00: 00 Yes TAKE 1-2 TABLETS UNDER THE TONGUE EVERY 4-6 HOURS NEEDED [facility] vancomycin 250 mg capsule 2022-07- 00:00: 00 02-01 00:00 :00 No PLEASE SEE ATTACHED FOR DETAILED DIRECTIONS [facility] amLODIPine 5 mg tablet 2022-07-14 00:00: 00 Yes TAKE 1 TABLET BY MOUTH TWO TIMES A DAY NEEDED FOR SBP>140 [facility] sucralfate 1 gram tablet 2022-07 00:00: 00 Yes TAKE 1 TABLET BY MOUTH BEFORE MEALS AND AT BEDTIME [facility] levoFLOXaci n 750 mg tablet 2022-07 00:00: 00 02-01 00:00 :00 No 750mg Take 1 tablet by mouth every morning. [facility] calcium/mag nesium/zinc (CALCIUM-MA GNESUIUM-ZI NC) 333-133-5 mg Tab 2021-07 09:40: 55 Yes Take by mouth. [facility] cyanocobala min, vitamin B-12, (VITAMIN B-12) 5,000 mcg/mL Drop 2021-07 09:40: [address] under the tongue. [facility] calcium/mag nesium/zinc (CALCIUM-MA GNESUIUM-ZI NC) 333-133-5 mg Tab 2021-07 09:40: 55 Yes 1{tbl} Take 1 tablet by mouth every evening. [facility] tamsulosin 0.4 mg 24 hr capsule 2021-07 00:00: 00 05-04 04:59 :00 No [id number] .4mg Take 1 capsule by mouth in the morning for 14 days. [facility] polyethylen e glycol 3350 17 gram powder 2021-07 00:00: 00 05-04 04:59 :00 No [id number] 17g Take 1 Packet by mouth in the morning for 14 days. [facility] KCL (KLOR-CON M20) tablet 40 mEq 2021-07 21:00: 00 04-18 22:14 :00 No 40meq 40 mEq, Oral, ONCE, 1 dose, On Mon04/18/22 at 1600, Routine [facility] Levothyroxi ne 112 mcg capsule 2021-07 17:50: 04 Yes Take by mouth. [facility] omeprazole 20 mg capsule 2021-07 17:50: 04 Yes 40mg Take 40 mg by mouth daily. [facility] mesalamine 1.2 gram EC tablet 2022-1 0-17 17:50: 04 Yes 1200mg Take 1,200 mg by mouth 4 (four) times daily. [facility] hydrALAZINE 50 mg tablet 2021-07 17:50: 04 Yes 50mg Take 50 mg by mouth 2 (two) times daily. [facility] budesonide 3 mg 24 hr capsule 2021-07 17:50: 04 Yes 9mg Take 9 mg by mouth every morning. [facility] carvediloL 25 mg tablet 2021-07 17:50: 04 Yes 25mg Take 25 mg by mouth 2 (two) times daily with meals. [facility] aspirin 81 mg chewable tablet 2021-07 17:50: 04 Yes 81mg Take 81 mg by mouth daily. [facility] calcium/mag nesium/zinc (CALCIUM-MA GNESUIUM-ZI NC) 333-133-5 mg Tab 2021-07 17:50: 04 Yes Take by mouth. [facility] Cholecalcif naresh, Vitamin D3, 125 mcg (5,000 unit) tablet 2021-07 17:50: 04 Yes Take by mouth. [facility] cyanocobala min, vitamin B-12, (VITAMIN B-12) 5,000 mcg/mL Drop 2021-07 17:50: [address] under the tongue. [facility] ALPRAZolam (XANAX) 0.25 mg tablet 2021-07 17:50: 04 Yes .25mg Take 0.25 mg by mouth once now. [facility] Loperamide (IMODIUM A-D) 1 mg/7.5 mL solution 2 mg 2021-07 16:36: 25 Yes 2mg 2 mg, Oral, Q4HPRN, Starting on Mon04/18/22 at 1136, Until Discontinu ed, Routine, Diarrhea [facility] amLODIPine (NORVASC) 10 mg tablet 2021-07 15:05: 06 04-18 00:00 :00 No 10mg Take 10 mg by mouth daily. [facility] acetaminoph en 500 mg tablet 2021-07 00:00: 00 05-03 04:59 :00 No [id number] 500mg Take 1 tablet by mouth in the morning and 1 tablet in the evening. Do all this for 14 days. [facility] gabapentin 300 mg capsule 2021-07 00:00: 00 05-03 04:59 :00 No [id number] 300mg Take 1 capsule by mouth at bedtime for 14 days. [facility] ibuprofen 400 mg tablet 2021-07 00:00: 00 05-03 04:59 :00 No [id number] 400mg Take 1 tablet by mouth in the morning and 1 tablet at noon and 1 tablet in the evening. Take with meals. Do all this for 14 days. [facility] methocarbam oL 500 mg tablet 2021-07 00:00: 00 05-03 04:59 :00 No [id number] 500mg Take 1 tablet by mouth 4 (four) times daily as needed for Pain (scale 4-6) for up to 14 days. [facility] Loperamide 1 mg/7.5 mL solution 2021-07 00:00: 00 05-03 04:59 :00 No [id number] 2mg Take 15 mL by mouth every 4 (four) hours as needed for Constipati on for up to 14 days. [facility] HYDROcodone -acetaminop hen 5-325 mg tablet 2021-07 00:00: 00 04-26 04:59 :00 No [id number] 1{tbl} Take 1 tablet by mouth every 6 (six) hours as needed for Pain (scale 7-10) or Pain (scale 4-6) for up to 7 days. Indication s: acute pain [facility] magnesium sulfate in water 4 gram/50 mL (8 %) IV Piggyback 4 g 2021-07 015 23:15: 00 04-17 01:22 :00 No 4g 4 g, IV Piggyback, at 25 mL/hr Administer over 120 Minutes, ONCE, 1 dose, On 04/16/22 at 1815, Routine [facility] HYDROcodone -acetaminop hen (NORCO 5) 5-325 mg tablet 1 tablet 2021-07 20:45: 00 Yes 1{tbl} 1 tablet, Oral, Q6HPRN, Starting on Mon04/16/22 at 1545, Until Discontinu ed, Routine, Pain (scale 7-10), Pain (scale 4-6) [facility] gabapentin (NEURONTIN) capsule 300 mg 2021-07 02:00: 00 Yes 300mg 300 mg, Oral, QHS, First dose (after last modificati on) on Mon04/15/22 at 2100, Until Discontinu ed, Routine [facility] acetaminoph en (TYLENOL) tablet 500 mg 2021-07 01:00: 00 Yes 500mg 500 mg, Oral, BID, First dose (after last modificati on) on Mon04/15/22 at 2000, Until Discontinu ed, Routine [facility] KCL (KLOR-CON M20) tablet 20 mEq 2021-07 17:45: 00 04-15 16:52 :00 No 20meq 20 mEq, Oral, ONCE, 1 dose, On Mon04/15/22 at 1245, [facility] tablet 40 mg 2021-07 14:00: 00 Yes 40mg 40 mg, Oral, DAILY, First dose on Mon04/15/22 at 0900, Until Discontinu ed, Routine [facility] methocarbam oL (ROBAXIN) tablet 500 mg 2021-07 13:15: 00 Yes 500mg 500 mg, Oral, QIDPRN, Starting on Mon04/15/22 at 0815, Until Discontinu ed, Routine, Muscle Spasms [facility] polyethylen e glycol 3350 powder 17 g 2021-07 14:00: 00 Yes 17g 17 g, Oral, DAILY, First dose on Mon04/14/22 at 0900, Until Discontinu ed, Routine [facility] tamsulosin (FLOMAX) capsule 0.4 mg 2021-07 14:00: 00 Yes .4mg 0.4 mg, Oral, DAILY, First dose on Mon04/14/22 at 0900, Until Discontinu ed, Routine [facility] KCL (KLOR-CON M20) tablet 20 mEq 2021-07 13:15: 00 04-14 13:38 :00 No 20meq 20 mEq, Oral, ONCE, 1 dose, On Mon04/14/22 at 0815, Routine [facility] acetaminoph en (TYLENOL) tablet 325 mg 2021-07 23:00: 00 04-15 13:09 :04 No 325mg 325 mg, Oral, Q6H, First dose (after last modificati on) on Mon04/13/22 at 1800, Until Discontinu ed, Routine [facility] cosyntropin (CORTROSYN) injection 250 mcg 2021-07 22:45: 00 04-14 09:55 :00 No 250ug 250 mcg, Slow IV Push, ONCE, 1 dose, On Mon04/13/22 at 1745, Routine [facility] HYDROcodone -acetaminop hen (NORCO 5) 5-325 mg tablet 1 tablet 2021-07 21:53: 03 04-16 20:41 :53 No 1{tbl} 1 tablet, Oral, Q4HPRN, Starting on Mon04/13/22 at 1653, Until 04/16/22 at 1541, Routine, Pain (scale 7-10), Pain (scale 4-6) [facility] amLODIPine (NORVASC) tablet 10 mg 2021-07 14:00: 00 Yes 10mg 10 mg, Oral, DAILY, First dose on Mon04/13/22 at 0900, Until Discontinu ed, Routine [facility] ibuprofen (IBU) tablet 400 mg 2021-07 13:00: 00 Yes 400mg 400 mg, Oral, TID MEALS, First dose on Mon04/13/22 at 0800, Until Discontinu ed, Routine [facility] levothyroxi ne (SYNTHROID) injection 56 mcg 2021-07 13:00: 00 Yes 56ug 56 mcg, Intravenou s, Q24H, First dose (after last modificati on) on Mon04/13/22 at 0800, Until Discontinu ed, Routine [facility] methocarbam oL (ROBAXIN) tablet 500 mg 2021-07 13:00: 00 04-15 13:09 :04 No 500mg 500 mg, Oral, QID, First dose on Mon04/13/22 at 0800, Until Discontinu ed, Routine [facility] gabapentin (NEURONTIN) capsule 300 mg 2021-07 13:00: 00 04-15 13:09 :04 No 300mg 300 mg, Oral, TID, First dose on Mon04/13/22 at 0800, Until Discontinu ed, Routine [facility] KCL (KLOR-CON M20) tablet 20 mEq 2021-07 12:30: 00 04-13 11:27 :00 No 20meq 20 mEq, Oral, ONCE, 1 dose, On Mon04/13/22 at 0730, Routine [facility] magnesium sulfate in water 2 gram/50 mL (4 %) infusion 2 g 2021-07 12:00: 00 04-13 12:31 :00 No 2g 2 g, IV Piggyback, Administer over 60 Minutes, ONCE, 1 dose, On Mon04/13/22 at 0700, Routine [facility] acetaminoph en (TYLENOL) tablet 650 mg 2021-07 12:00: 00 04-13 21:53 :34 No 650mg 650 mg, Oral, Q6H, First dose on Mon04/13/22 at 0700, Until Discontinu ed, Routine [facility] bisacodyL (DULCOLAX) suppository 10 mg 2021-07 12:00: 00 04-13 13:16 :00 No 10mg 10 mg, Rectal, ONCE, 1 dose, On Mon04/13/22 at 0700, Routine [facility] amLODIPine (NORVASC) tablet 5 mg 2021-07 23:15: 00 04-12 23:13 :00 No 5mg 5 mg, Oral, ONCE, 1 dose, On Mon04/12/22 at 1815, Routine [facility] FENTanyl PF (SUBLIMAZE (PF)) injection 25 mcg 2021-07 16:48: 26 04-15 13:09 :04 No 25ug 25 mcg, Slow IV Push, Q3HPRN, Starting on Mon04/12/22 at 1148, Until Mon04/15/22 at 0809, Routine, breakthrou gh pain [facility] oxyCODONE immediate release tablet 5 mg 2021-07 16:48: 21 04-13 21:53 :34 No 5mg 5 mg, Oral, Q4HPRN, Starting on Mon04/12/22 at 1148, Until Mon04/13/22 at 1653, Routine, Pain (scale 7-10), Pain (scale 4-6)
Fa culty member approving Restricted medication : ERASMO TOVAR [facility] furosemide (LASIX) injection 40 mg 2021-07 15:45: 00 04-12 17:14 :00 No 40mg 40 mg, Slow IV Push, ONCE, 1 dose, On Mon04/12/22 at 1045, Routine [facility] hydrALAZINE (APRESOLINE ) tablet 50 mg 2021-07 13:00: 00 Yes 50mg 50 mg, Oral, TID, First dose on Mon04/12/22 at 0800, Until Discontinu ed, Routine [facility] carvediloL (COREG) tablet 25 mg 2021-07 13:00: 00 Yes 25mg 25 mg, Oral, BID MEALS, First dose on Mon04/12/22 at 0800, Until Discontinu ed, Routine [facility] magnesium sulfate in water 4 gram/50 mL (8 %) IV Piggyback 4 g 2021-07 11:45: 00 04-12 14:17 :00 No 4g 4 g, IV Piggyback, at 25 mL/hr Administer over 120 Minutes, ONCE, 1 dose, On Mon04/12/22 at 0645, Routine [facility] potassium phosphate 15 mmol in NaCl 0.9% (NS) 150 mL piggyback 2021-07 12:30: 00 04-11 17:00 :00 No 15mmol 15 mmol, IV Piggyback, ONCE, 1 dose, On Mon04/11/22 at 0730, 150 mL [facility] pantoprazol e (PROTONIX) injection 40 mg 2021-07 12:00: 00 04-14 11:59 :00 No 40mg 40 mg, Slow IV Push, Q24H, 3 doses, First dose (after last reorder) on Mon04/11/22 at 0700, Last dose on Mon04/13/22 at 0700 [facility] 2 gram/50 mL (4 %) infusion 2 g 2021-07 11:45: 00 04-11 12:13 :00 No 2g 2 g, IV Piggyback, Administer over 60 Minutes, ONCE, 1 dose, On Mon04/11/22 at 0645, Routine [facility] HYDROmorpho ne (DILAUDID) 10 mg/50 mL 0.9% NaCl [employer] 2021-07 22:00: 00 04-12 21:59 :00 No Patient Bolus Dose: 0.1 mg
Lock out Interval: 10 Minutes
Basal Rate: 0 mg/hr
F our Hour Dose Limit: 2.4 mg
IV Infusion, 50 mL, CONTINUOUS , Starting on Mon04/10/22 at 1700, Until Mon04/12/22 at 1659 [facility] methocarbam oL (ROBAXIN) injection 500 mg 2021-07 21:00: 00 Yes 500mg 500 mg, Intravenou s, QID, First dose on Mon04/10/22 at 1600, Until Discontinu ed, Routine [facility] acetaminoph en ADULT (OFIRMEV) injection 1,000 mg 2021-07 14:30: 00 04-11 08:32 :00 No 1000mg 1,000 mg, IV Infusion, at 400 mL/hr Administer over 15 Minutes, Q8H ABX, 3 doses, First dose (after last reorder) on 04/10/22 at 0930, Last dose on 04/11/22 at 0130, Routine
Indicatio n: Non-periop erative Patient
Approved by: Per Policy (NPO Status) [facility] magnesium sulfate in water 2 gram/50 mL (4 %) infusion 2 g 2021-07 0 12:15: 00 04-10 19:45 :00 No 2g 2 g, IV Piggyback, Administer over 60 Minutes, ONCE, 1 dose, On 04/10/22 at 0715, Routine [facility] D5W 0.9% NaCl + KCL 20 mEq RTU 20 mEq/L 1,000 mL IV Solution 2021-07 0 23:15: 00 Yes IV Infusion, CONTINUOUS , Starting on 04/09/22 at 1815, Until Discontinu ed, 1,000 mL, at 100 mL/hr [facility] FENTanyl 1000 mcg/100 mL 0.9% NaCl [employer] 2021-07 008 23:15: 00 04-10 20:56 :34 No Patient Bolus Dose: 10 mcg
Loc kout Interval: 10 Minutes
Basal Rate: 0 mcg/hr
Four Hour Dose Limit: 240 mcg
IV Infusion, 100 mL, CONTINUOUS , Starting on 04/09/22 at 1815, Until 04/10/22 at 1556 [facility] naloxone (NARCAN) injection 0.1 mg 2021-07 008 22:06: 54 Yes .1mg 0.1 mg, Slow IV Push, SEE-INSTRU CTIONS, Starting on 04/09/22 at 1706, Until Discontinu ed, Routine [facility] bupivacaine 0.0625% epidural infusion 250 mL 2021-07 0-08 15:30: 00 04-11 03:47 :20 No Epidural, at 6 mL/hr, CONTINUOUS , Starting on 04/09/22 at 1030, Until 04/10/22 at 2247, 250 mL [facility] metoprolol (LOPRESSOR) injection 2.5 mg 2021-07 0 14:00: 00 Yes 2.5mg 2.5 mg, Intravenou s, Q8H, First dose (after last modificati on) on Mon04/09/22 at 0900, Until Discontinu ed, Routine [facility] aspirin chewable tablet 81 mg 2021-07 0 14:00: 00 Yes 81mg 81 mg, Oral, DAILY, First dose on Mon04/09/22 at 0900, Until Discontinu ed, Routine [facility] acetaminoph en ADULT (OFIRMEV) injection 1,000 mg 2021-07 09:45: 00 04-10 01:14 :00 No 1000mg 1,000 mg, IV Infusion, at 400 mL/hr Administer over 15 Minutes, Q8H ABX, 3 doses, First dose on Mon04/09/22 at 0445, Last dose on Mon04/09/22 at 204, Routine
Indicatio n: Non-periop erative Patient
Approved by: Per Policy (NPO Status) [facility] pantoprazol e (PROTONIX) injection 40 mg 2021-07 0 01:45: 00 04-09 01:01 :00 No 40mg 40 mg, Slow IV Push, ONCE, 1 dose, On Mon04/08/22 at 2045 [facility] potassium chloride in water (KCL) 20 mEq/100 mL RTU IVPB 20 mEq 2021-07 0 23:00: 00 04-09 06:59 :00 No 20meq 20 mEq, IV Piggyback, Q2H, 4 doses, First dose on Mon04/08/22 at 1800, Last dose on Mon04/09/22 at 0000, 100 mL [facility] enoxaparin (LOVENOX) injection 40 mg 2021-07 0 22:00: 00 Yes 40mg 40 mg, Subcutaneo us, DAILY, First dose on Mon04/08/22 at 1700, Until Discontinu ed, Routine [facility] levothyroxi ne (SYNTHROID) injection 56 mcg 2021-07 19:15: 00 Yes 56ug 56 mcg, Intravenou s, Q24H, First dose on Mon04/08/22 at 1415, Until Discontinu ed, Routine [facility] ketorolac (TORADOL) injection 15 mg 2021-07 19:00: 00 04-09 18:54 :00 No 15mg 15 mg, Slow IV Push, Q8H, 4 doses, First dose on Mon04/08/22 at 1400, Last dose on Mon04/09/22 at 1400, Routine [facility] bupivacaine (preserv free) (SENSORCAIN E MPF) 0.25 % (2.5 mg/mL) injection 2021-07 18:49: 00 04-08 18:56 :02 No Caudal Block, ONCE INTRA PROCEDURE, Starting on Mon04/08/22 at 1349, Until Mon04/08/22 at 1356, Routine, Intra-op [facility] HYDROmorpho ne (DILAUDID) injection 0.2 mg 2021-07 18:17: 35 04-08 22:16 :48 No .2mg 0.2 mg, Slow IV Push, Q5MIN PRN, 10 doses, Starting on Mon04/08/22 at 1317, Until Mon04/08/22 at 1716, Routine, Pain (scale 7-10), PACU
Us e approved by (Faculty): PACU USE -ANESTHESI A SERVICE-HY DROMORPHON E INJECTIONS [facility] pantoprazol e (PROTONIX) injection 40 mg 2021-07 17:45: 00 04-10 17:45 :00 No 40mg 40 mg, Slow IV Push, Q24H, 3 doses, First dose on Mon04/08/22 at 1245, Last dose on Mon04/10/22 at 1245 [facility] D5W 0.45% NaCl (1/2NS) 1 L + KCL 20 mEq 2021-07 0 17:45: 00 04-09 22:11 :17 No IV Infusion, at 100 mL/hr, CONTINUOUS , Starting on Mon04/08/22 at 1245, Until 04/09/22 at 1711, [facility]ral[facility] (APRESOLINE ) [facility] 10 mg 2021-07 17:33: 56 Yes 10mg 10 mg, Slow IV Push, Q4HPRN, Starting on Mon04/08/22 at 1233, Until Discontinu ed, Routine, DBP=>100; SBP=>180 [facility] FENTanyl PF (SUBLIMAZE (PF)) injection 25 mcg 2021-07 17:31: 54 Yes 25ug 25 mcg, Slow IV Push, Q3HPRN, Starting on Mon04/08/22 at 1231, Until Discontinu ed, Routine, Pain (scale 7-10) [facility] ondansetron (ZOFRAN (PF)) injection 4 mg 2021-07 17:30: 25 Yes 4mg 4 mg, Slow IV Push, Q6HPRN, Starting on Mon04/08/22 at 1230, Until Discontinu ed, Routine, Nausea and Vomiting (N/V) [facility] ALPRAZolam (XANAX) 0.25 mg tablet 2021-07 17:16: 48 Yes .25mg Take 0.25 mg by mouth once now. [facility] sugammadex (BRIDION) injection 2021-07 16:49: 00 04-08 17:46 :41 No IV Push, ONCE INTRA PROCEDURE, Starting on Mon04/08/22 at 1149, Until Discontinu ed, Routine, Intra-op [facility] ondansetron (ZOFRAN (PF)) injection 2021-07 16:41: 00 04-08 17:46 :41 No Slow IV Push, ONCE INTRA PROCEDURE, Starting on Mon04/08/22 at 1141, Until Discontinu ed, Routine, Intra-op [facility] acetaminoph en ADULT (OFIRMEV) injection 2021-07 16:40: 00 04-08 17:46 :41 No IV Infusion, Administer over 15 Minutes, ONCE INTRA PROCEDURE, Starting on Mon04/08/22 at 1140, Until Discontinu ed, Routine, Intra-op [facility] KCL 20 mEq/50 mL Piggyback 2021-07 0-07 16:34: 00 04-08 17:46 :41 No IV Infusion, ONCE INTRA PROCEDURE, Starting on Mon04/08/22 at 1134, Until Discontinu ed, Intra-op [facility] NORepinephr ine (LEVOPHED) 4 mg in NaCl 0.9% (NS) 250 mL infusion 2021-07 0-07 14:53: 00 04-08 17:46 :41 No IV Infusion, CONTINUOUS PRN, Starting on Mon04/08/22 at 0953, Intra-op [facility] bupivacaine 0.0625% epidural infusion 250 mL 2021-07 0-07 13:34: 00 04-09 15:19 :38 No Epidural, at 4 mL/hr, CONTINUOUS , Starting on Mon04/08/22 at 0845, Until Mon04/09/22 at 1019, 250 [facility] HYDR[facility] (DILAUDID) injection 2021-07 0-07 13:26: 00 04-08 17:46 :41 No Slow IV Push, ONCE INTRA PROCEDURE, Starting on Mon04/08/22 at 0826, Until Discontinu ed, Routine, Intra-op [facility] glycopyrrol ate (ROBINUL) injection 2021-07 0-07 13:20: 00 04-08 17:46 :41 No Intravenou s, ONCE INTRA PROCEDURE, Starting on Mon04/08/22 at 0820, Until Discontinu ed, Routine, Intra-op [facility] ceFAZolin (ANCEF) injection 2021-07 0-07 13:11: 00 04-08 17:46 :41 No Slow IV Push, ONCE INTRA PROCEDURE, Starting on Mon04/08/22 at 0811, Until Discontinu ed, FRANCK, Intra-op [facility] lactated ringers IV infusion 2021-07 0-07 12:40: 00 04-08 17:46 :41 No IV Infusion, CONTINUOUS PRN, Starting on Mon04/08/22 at 0740, Until Discontinu ed, Routine, Intra-op [facility] Levothyroxi ne 112 mcg capsule 2021-07 12:34: 44 Yes Take by mouth. [facility] omeprazole 20 mg capsule 2021-07 12:34: 44 Yes 40mg Take 40 mg by mouth daily. [facility] mesalamine 1.2 gram EC tablet 2021-07 12:34: 44 Yes 1200mg Take 1,200 mg by mouth 4 (four) times daily. [facility] hydrALAZINE 50 mg tablet 2021-07 12:34: 44 Yes 50mg Take 50 mg by mouth 2 (two) times daily. [facility] budesonide 3 mg 24 hr capsule 2021-07 12:34: 44 Yes 9mg Take 9 mg by mouth every morning. [facility] carvediloL 25 mg tablet 2021-07 12:34: 44 Yes 25mg Take 25 mg by mouth 2 (two) times daily with meals. [facility] aspirin 81 mg chewable tablet 2021-07 12:34: 44 Yes 81mg Take 81 mg by mouth daily. [facility] calcium/mag nesium/zinc (CALCIUM-MA GNESUIUM-ZI NC) 333-133-5 mg Tab 2021-07 12:34: 44 Yes Take by mouth. [facility] Cholecalcif naresh, Vitamin D3, 125 mcg (5,000 unit) tablet 2021-07 12:34: 44 Yes Take by mouth. [facility] cyanocobala min, vitamin B-12, (VITAMIN B-12) 5,000 mcg/mL Drop 2021-07 12:34: [address] under the tongue. [facility] ePHEDrine 25 mg/5 mL (5 mg/mL) syringe 2021-07 12:32: 00 04-08 17:46 :41 No Slow IV Push, ONCE INTRA PROCEDURE, Starting on Mon04/08/22 at 0732, Until Discontinu ed, Routine, Intra-op [facility] PHENYLephri ne 1000 mcg/10 mL in 0.9% NaCl syringe 2021-07 007 12:32: 00 04-08 17:46 :41 No Slow IV Push, ONCE INTRA PROCEDURE, Starting on Mon04/08/22 at 0732, Until Discontinu ed, Routine, Intra-op [facility] lidocaine 1% (XYLOCAINE) 100 mg/10 mL (1 %) injection 2021-07 0 12:31: 00 04-08 17:46 :41 No Slow IV Push, ONCE INTRA PROCEDURE, Starting on Mon04/08/22 at 0731, Until Discontinu ed, Routine, [facility]-op [facility] FENTanyl PF (SUBLIMAZE (PF)) injection 2021-07 12:31: 00 04-08 17:46 :41 No Epidural, ONCE INTRA PROCEDURE, Starting on Mon04/08/22 at 0731, Until Discontinu ed, Routine, Intra-op [facility] rocuronium (ZEMURON) injection 2021-07 12:31: 00 04-08 17:46 :41 No IV Push, ONCE INTRA PROCEDURE, Starting on Mon04/08/22 at 0731, Until Discontinu ed, Routine, Intra-op [facility] propofoL IV infusion 2021-07 12:31: 00 04-08 17:46 :41 No IV Infusion, ONCE INTRA PROCEDURE, Starting on Mon04/08/22 at 0731, Until Discontinu ed, Routine, Intra-op [facility] lactated ringers IV infusion 2021-07 0 12:19: 00 04-08 17:46 :41 No IV Infusion, CONTINUOUS PRN, Starting on Mon04/08/22 at 0719, Until Discontinu ed, Routine, Intra-op [facility] lidocaine-e pinephrine (XYLOCAINE W/EPINEPHRI NE) 1.5 %-1:200,000 injection 2021-07 0-07 12:05: 00 04-08 17:46 :41 No Intraderma l, ONCE INTRA PROCEDURE, Starting on Mon04/08/22 at 0705, Until Discontinu ed, Routine, [facility]-op [facility] amLODIPine (NORVASC) 10 mg tablet 2021-07 0-07 05:19: 13 Yes 10mg Take 10 mg by mouth daily. [facility] tc 99m-tetrofo smin (MYOVIEW) injection 40.1 millicurie 03-29 16:15: 00 03-29 16:04 :00 No [id number] 40.1mCi 40.1 millicurie , Intravenou s, ONCE, 1 dose, On Mon03/29/22 at 1115, Routine [facility] regadenoson (LEXISCAN) injection 0.4 mg 03-29 15:15: 00 03-29 16:04 :00 No [id number] 4104 .4mg 0.4 mg, IV Push, ONCE, 1 dose, On Mon03/29/22 at 1015, Routine
restaurant team member approving Restricted medication : LILI DEGROOT [facility] tc 99m-tetrofo smin (MYOVIEW) injection 15.9 millicurie 03-29 14:00: 00 03-29 14:00 :00 No [id number] 4104 15.9mCi 15.9 millicurie , Intravenou s, ONCE, 1 dose, On Mon03/29/22 at 0900, Routine [facility] Levothyroxi ne 112 mcg capsule 03-11 11:24: 34 Yes 125ug Take 125 mcg by mouth. [facility] omeprazole 20 mg capsule 03-11 11:24: 34 Yes 40mg Take 2 capsules by mouth in the morning. [facility] mesalamine 1.2 gram EC tablet 03-11 11:24: 34 Yes 1200mg Take 1,200 mg by mouth 4 (four) times daily. [facility] hydrALAZINE 50 mg tablet 03-11 11:24: 34 Yes 50mg Take 1 tablet by mouth in the morning and 1 tablet in the evening. [facility] budesonide 3 mg 24 hr capsule 03-11 11:24: 34 Yes 9mg Take 3 capsules by mouth every morning. [facility] carvediloL 25 mg tablet 03-11 11:24: 34 Yes 25mg Take 1 tablet by mouth in the morning and 1 tablet in the evening. Take with meals. [facility] aspirin 81 mg chewable tablet 03-11 11:24: 34 Yes 81mg Take 1 tablet by mouth in the morning. [facility] calcium/mag nesium/zinc (CALCIUM-MA GNESUIUM-ZI NC) 333-133-5 mg Tab 03-11 11:24: 34 Yes Take by mouth. [facility] Cholecalcif naresh, Vitamin D3, 125 mcg (5,000 unit) tablet 03-11 11:24: 34 Yes 5000U Take 1 tablet by mouth in the morning. [facility] cyanocobala min, vitamin B-12, (VITAMIN B-12) 5,000 mcg/mL Drop 03-11 11:24: [address] 5,000 mcg under the tongue in the morning. [facility] amLODIPine (NORVASC) 10 mg tablet 03-03 09:50: 47 Yes 10mg Take 10 mg by mouth daily. [facility] KCL 20 mEq tablet 03-03 00:00: 00 04-03 04:59 :00 No [id number] 40meq Take 2 tablets by mouth in the morning for 30 days. [facility] ondansetron (ZOFRAN) 4 mg tablet 11-22 00:00: 00 04-18 00:00 :00 No [id number] 4mg Take 1 tablet by mouth every 8 (eight) hours as needed. [facility] dicyclomine 10 mg capsule 11-22 00:00: 00 02-21 04:59 :00 No [id number] 10mg Take 1 capsule by mouth 4 (four) times daily for 90 days. [facility] simethicone 80 mg chewable tablet 11-22 00:00: 00 02-21 04:59 :00 No [id number] 80mg Take 1 tablet by mouth after meals and at bedtime for 90 days. [facility] acetaminoph en-codeine 300-30 mg tablet 11-22 00:00: 00 12-21 04:59 :00 No 2745 1{tbl} Take 1 tablet by mouth every 4 (four) hours as needed for Pain (scale 7-10) (For cancer-rel ated pain.) for up to 28 days. Indication s: chronic pain [facility] Immunizations Ordered Immunization Name Filled Immunization Name Date Status Comments Source SARS-COV-2 COVID-19 PFIZER VACCINE 2021-05-11 00:00:00 Completed [facility] SARS-COV-2 COVID-19 PFIZER VACCINE 2021-05-11 00:00:00 Completed [facility] SARS-COV-2 COVID-19 PFIZER VACCINE 2021-05-11 00:00:00 Completed [facility] SARS-COV-2 COVID-19 PFIZER VACCINE 2021-05-11 00:00:00 Completed [facility] SARS-COV-2 COVID-19 PFIZER VACCINE 2021-05-11 00:00:00 Completed [facility] SARS-COV-2 COVID-19 PFIZER VACCINE 2021-05-11 00:00:00 Completed [facility] SARS-COV-2 COVID-19 PFIZER VACCINE 2021-05-11 00:00:00 Completed [facility] SARS-COV-2 COVID-19 PFIZER VACCINE 2021-05-11 00:00:00 Completed [facility] SARS-COV-2 COVID-19 PFIZER VACCINE 2021-05-11 00:00:00 Completed [facility] SARS-COV-2 COVID-19 PFIZER VACCINE 2021-05-11 00:00:00 Completed [facility] SARS-COV-2 COVID-19 PFIZER VACCINE 2021-05-11 00:00:00 Completed [facility] SARS-COV-2 COVID-19 PFIZER VACCINE 2021-05-11 00:00:00 Completed [facility] SARS-COV-2 COVID-19 PFIZER VACCINE 2021-05-11 00:00:00 Completed [facility] SARS-COV-2 COVID-19 PFIZER VACCINE 2021-05-11 00:00:00 Completed [facility] SARS-COV-2 COVID-19 PFIZER VACCINE 2021-05-11 00:00:00 Completed [facility] SARS-COV-2 COVID-19 PFIZER VACCINE 2021-05-11 00:00:00 Completed [facility] SARS-COV-2 COVID-19 PFIZER VACCINE 2021-05-11 00:00:00 Completed [facility] SARS-COV-2 COVID-19 PFIZER VACCINE 2021-05-11 00:00:00 Completed [facility] SARS-COV-2 COVID-19 PFIZER VACCINE 2021-05-11 00:00:00 Completed [facility] SARS-COV-2 COVID-19 PFIZER VACCINE 2021-05-11 00:00:00 Completed [facility] SARS-COV-2 COVID-19 PFIZER VACCINE 2021-05-11 00:00:00 Completed [facility] SARS-COV-2 COVID-19 PFIZER VACCINE 2021-05-11 00:00:00 Completed [facility] SARS-COV-2 COVID-19 PFIZER VACCINE 2021-05-11 00:00:00 Completed [facility] SARS-COV-2 COVID-19 PFIZER VACCINE 2021-05-11 00:00:00 Completed [facility] SARS-COV-2 COVID-19 PFIZER VACCINE 2021-05-11 00:00:00 Completed [facility] SARS-COV-2 COVID-19 PFIZER VACCINE 2020-08-28 00:00:00 Completed [facility] SARS-COV-2 COVID-19 PFIZER VACCINE 2020-08-28 00:00:00 Completed [facility] SARS-COV-2 COVID-19 PFIZER VACCINE 2020-08-28 00:00:00 Completed [facility] SARS-COV-2 COVID-19 PFIZER VACCINE 2020-08-28 00:00:00 Completed [facility] SARS-COV-2 COVID-19 PFIZER VACCINE 2020-08-28 00:00:00 Completed [facility] SARS-COV-2 COVID-19 PFIZER VACCINE 2020-08-28 00:00:00 Completed [facility] SARS-COV-2 COVID-19 PFIZER VACCINE 2020-08-28 00:00:00 Completed [facility] SARS-COV-2 COVID-19 PFIZER VACCINE 2020-08-28 00:00:00 Completed [facility] SARS-COV-2 COVID-19 PFIZER VACCINE 2020-08-28 00:00:00 Completed [facility] SARS-COV-2 COVID-19 PFIZER VACCINE 2020-08-28 00:00:00 Completed [facility] SARS-COV-2 COVID-19 PFIZER VACCINE 2020-08-28 00:00:00 Completed [facility] SARS-COV-2 COVID-19 PFIZER VACCINE 2020-08-28 00:00:00 Completed [facility] SARS-COV-2 COVID-19 PFIZER VACCINE 2020-08-28 00:00:00 Completed [facility] SARS-COV-2 COVID-19 PFIZER VACCINE 2020-08-28 00:00:00 Completed [facility] SARS-COV-2 COVID-19 PFIZER VACCINE 2020-08-28 00:00:00 Completed [facility] SARS-COV-2 COVID-19 PFIZER VACCINE 2020-08-28 00:00:00 Completed [facility] SARS-COV-2 COVID-19 PFIZER VACCINE 2020-08-28 00:00:00 Completed [facility] SARS-COV-2 COVID-19 PFIZER VACCINE 2020-08-28 00:00:00 Completed [facility] SARS-COV-2 COVID-19 PFIZER VACCINE 2020-08-28 00:00:00 Completed [facility] SARS-COV-2 COVID-19 PFIZER VACCINE 2020-08-28 00:00:00 Completed [facility] SARS-COV-2 COVID-19 PFIZER VACCINE 2020-08-28 00:00:00 Completed [facility] SARS-COV-2 COVID-19 PFIZER VACCINE 2020-08-28 00:00:00 Completed [facility] SARS-COV-2 COVID-19 PFIZER VACCINE 2020-08-28 00:00:00 Completed [facility] SARS-COV-2 COVID-19 PFIZER VACCINE 2020-08-28 00:00:00 Completed [facility] SARS-COV-2 COVID-19 PFIZER VACCINE 2020-08-28 00:00:00 Completed [facility] SARS-COV-2 COVID-19 PFIZER VACCINE 2020-07-31 00:00:00 Completed [facility] SARS-COV-2 COVID-19 PFIZER VACCINE 2020-07-31 00:00:00 Completed [facility] SARS-COV-2 COVID-19 PFIZER VACCINE 2020-07-31 00:00:00 Completed [facility] SARS-COV-2 COVID-19 PFIZER VACCINE 2020-07-31 00:00:00 Completed [facility] SARS-COV-2 COVID-19 PFIZER VACCINE 2020-07-31 00:00:00 Completed [facility] SARS-COV-2 COVID-19 PFIZER VACCINE 2020-07-31 00:00:00 Completed [facility] SARS-COV-2 COVID-19 PFIZER VACCINE 2020-07-31 00:00:00 Completed [facility] SARS-COV-2 COVID-19 PFIZER VACCINE 2020-07-31 00:00:00 Completed [facility] SARS-COV-2 COVID-19 PFIZER VACCINE 2020-07-31 00:00:00 Completed [facility] SARS-COV-2 COVID-19 PFIZER VACCINE 2020-07-31 00:00:00 Completed [facility] SARS-COV-2 COVID-19 PFIZER VACCINE 2020-07-31 00:00:00 Completed [facility] SARS-COV-2 COVID-19 PFIZER VACCINE 2020-07-31 00:00:00 Completed [facility] SARS-COV-2 COVID-19 PFIZER VACCINE 2020-07-31 00:00:00 Completed [facility] SARS-COV-2 COVID-19 PFIZER VACCINE 2020-07-31 00:00:00 Completed [facility] SARS-COV-2 COVID-19 PFIZER VACCINE 2020-07-31 00:00:00 Completed [facility] SARS-COV-2 COVID-19 PFIZER VACCINE 2020-07-31 00:00:00 Completed [facility] SARS-COV-2 COVID-19 PFIZER VACCINE 2020-07-31 00:00:00 Completed [facility] SARS-COV-2 COVID-19 PFIZER VACCINE 2020-07-31 00:00:00 Completed [facility] SARS-COV-2 COVID-19 PFIZER VACCINE 2020-07-31 00:00:00 Completed [facility] SARS-COV-2 COVID-19 PFIZER VACCINE 2020-07-31 00:00:00 Completed [facility] SARS-COV-2 COVID-19 PFIZER VACCINE 2020-07-31 00:00:00 Completed [facility] SARS-COV-2 COVID-19 PFIZER VACCINE 2020-07-31 00:00:00 Completed [facility] SARS-COV-2 COVID-19 PFIZER VACCINE 2020-07-31 00:00:00 Completed [facility] SARS-COV-2 COVID-19 PFIZER VACCINE 2020-07-31 00:00:00 Completed [facility] SARS-COV-2 COVID-19 PFIZER VACCINE 2020-07-31 00:00:00 Completed [facility] SARS-COV-2 COVID-19 PFIZER VACCINE Unknown Completed [facility] SARS-COV-2 COVID-19 PFIZER VACCINE Unknown Completed [facility] SARS-COV-2 COVID-19 PFIZER VACCINE Unknown Completed [facility] SARS-COV-2 COVID-19 PFIZER VACCINE Unknown Completed [facility] SARS-COV-2 COVID-19 PFIZER VACCINE Unknown Completed [facility] SARS-COV-2 COVID-19 PFIZER VACCINE Unknown Completed [facility] SARS-COV-2 COVID-19 PFIZER VACCINE Unknown Completed [facility] SARS-COV-2 COVID-19 PFIZER VACCINE Unknown Completed [facility] SARS-COV-2 COVID-19 PFIZER VACCINE Unknown Completed [facility] SARS-COV-2 COVID-19 PFIZER VACCINE Unknown Completed [facility] SARS-COV-2 COVID-19 PFIZER VACCINE Unknown Completed [facility] SARS-COV-2 COVID-19 PFIZER VACCINE Unknown Completed [facility] SARS-COV-2 COVID-19 PFIZER VACCINE Unknown Completed [facility] SARS-COV-2 COVID-19 PFIZER VACCINE Unknown Completed [facility] SARS-COV-2 COVID-19 PFIZER VACCINE Unknown Completed [facility] SARS-COV-2 COVID-19 PFIZER VACCINE Unknown Completed [facility] SARS-COV-2 COVID-19 PFIZER VACCINE Unknown Completed [facility] SARS-COV-2 COVID-19 PFIZER VACCINE Unknown Completed [facility] SARS-COV-2 COVID-19 PFIZER VACCINE Unknown Completed [facility] SARS-COV-2 COVID-19 PFIZER VACCINE Unknown Completed [facility] SARS-COV-2 COVID-19 PFIZER VACCINE Unknown Completed [facility] SARS-COV-2 COVID-19 PFIZER VACCINE Unknown Completed [facility] SARS-COV-2 COVID-19 PFIZER VACCINE Unknown Completed [facility] SARS-COV-2 COVID-19 PFIZER VACCINE Unknown Completed [facility] SARS-COV-2 COVID-19 PFIZER VACCINE Unknown Completed [facility] SARS-COV-2 COVID-19 PFIZER VACCINE Unknown Completed [facility] SARS-COV-2 COVID-19 PFIZER VACCINE Unknown Completed [facility] SARS-COV-2 COVID-19 PFIZER VACCINE Unknown Completed [facility] SARS-COV-2 COVID-19 PFIZER VACCINE Unknown Completed [facility] SARS-COV-2 COVID-19 PFIZER VACCINE Unknown Completed [facility] SARS-COV-2 COVID-19 PFIZER VACCINE Unknown Completed [facility] SARS-COV-2 COVID-19 PFIZER VACCINE Unknown Completed [facility] SARS-COV-2 COVID-19 PFIZER VACCINE Unknown Completed [facility] SARS-COV-2 COVID-19 PFIZER VACCINE Unknown Completed [facility] SARS-COV-2 COVID-19 PFIZER VACCINE Unknown Completed [facility] SARS-COV-2 COVID-19 PFIZER VACCINE Unknown Completed [facility] SARS-COV-2 COVID-19 PFIZER VACCINE Unknown Completed [facility] SARS-COV-2 COVID-19 PFIZER VACCINE Unknown Completed [facility] SARS-COV-2 COVID-19 PFIZER VACCINE Unknown Completed [facility] SARS-COV-2 COVID-19 PFIZER VACCINE Unknown Completed [facility] SARS-COV-2 COVID-19 PFIZER VACCINE Unknown Completed [facility] SARS-COV-2 COVID-19 PFIZER VACCINE Unknown Completed [facility] SARS-COV-2 COVID-19 PFIZER VACCINE Unknown Completed [facility] SARS-COV-2 COVID-19 PFIZER VACCINE Unknown Completed [facility] SARS-COV-2 COVID-19 PFIZER VACCINE Unknown Completed [facility] SARS-COV-2 COVID-19 PFIZER VACCINE Unknown Completed [facility] SARS-COV-2 COVID-19 PFIZER VACCINE Unknown Completed [facility] SARS-COV-2 COVID-19 PFIZER VACCINE Unknown Completed [facility] SARS-COV-2 COVID-19 PFIZER VACCINE Unknown Completed [facility] SARS-COV-2 COVID-19 PFIZER VACCINE Unknown Completed [facility] SARS-COV-2 COVID-19 PFIZER VACCINE Unknown Completed [facility] SARS-COV-2 COVID-19 PFIZER VACCINE Unknown Completed [facility] SARS-COV-2 COVID-19 PFIZER VACCINE Unknown Completed [facility] SARS-COV-2 COVID-19 PFIZER VACCINE Unknown Completed [facility] SARS-COV-2 COVID-19 PFIZER VACCINE Unknown Completed [facility] SARS-COV-2 COVID-19 PFIZER VACCINE Unknown Completed [facility] SARS-COV-2 COVID-19 PFIZER VACCINE Unknown Completed [facility] SARS-COV-2 COVID-19 PFIZER VACCINE Unknown Completed [facility] SARS-COV-2 COVID-19 PFIZER VACCINE Unknown Completed [facility] SARS-COV-2 COVID-19 PFIZER VACCINE Unknown Completed [facility] SARS-COV-2 COVID-19 PFIZER VACCINE Unknown Completed [facility] SARS-COV-2 COVID-19 PFIZER VACCINE Unknown Completed [facility] SARS-COV-2 COVID-19 PFIZER VACCINE Unknown Completed [facility] SARS-COV-2 COVID-19 PFIZER VACCINE Unknown Completed [facility] SARS-COV-2 COVID-19 PFIZER VACCINE Unknown Completed [facility] SARS-COV-2 COVID-19 PFIZER VACCINE Unknown Completed [facility] SARS-COV-2 COVID-19 PFIZER VACCINE Unknown Completed [facility] SARS-COV-2 COVID-19 PFIZER VACCINE Unknown Completed [facility] SARS-COV-2 COVID-19 PFIZER VACCINE Unknown Completed [facility] SARS-COV-2 COVID-19 PFIZER VACCINE Unknown Completed [facility] SARS-COV-2 COVID-19 PFIZER VACCINE Unknown Completed [facility] SARS-COV-2 COVID-19 PFIZER VACCINE Unknown Completed [facility] SARS-COV-2 COVID-19 PFIZER VACCINE Unknown Completed [facility] SARS-COV-2 COVID-19 PFIZER VACCINE Unknown Completed [facility] SARS-COV-2 COVID-19 PFIZER VACCINE Unknown Completed [facility] SARS-COV-2 COVID-19 PFIZER VACCINE Unknown Completed [facility] SARS-COV-2 COVID-19 PFIZER VACCINE Unknown Completed [facility] SARS-COV-2 COVID-19 PFIZER VACCINE Unknown Completed [facility] SARS-COV-2 COVID-19 PFIZER VACCINE Unknown Completed [facility] SARS-COV-2 COVID-19 PFIZER VACCINE Unknown Completed [facility] SARS-COV-2 COVID-19 PFIZER VACCINE Unknown Completed [facility] SARS-COV-2 COVID-19 PFIZER VACCINE Unknown Completed [facility] SARS-COV-2 COVID-19 PFIZER VACCINE Unknown Completed [facility] SARS-COV-2 COVID-19 PFIZER VACCINE Unknown Completed [facility] SARS-COV-2 COVID-19 PFIZER VACCINE Unknown Completed [facility] SARS-COV-2 COVID-19 PFIZER VACCINE Unknown Completed [facility] SARS-COV-2 COVID-19 PFIZER VACCINE Unknown Completed [facility] SARS-COV-2 COVID-19 PFIZER VACCINE Unknown Completed [facility] SARS-COV-2 COVID-19 PFIZER VACCINE Unknown Completed [facility] SARS-COV-2 COVID-19 PFIZER VACCINE Unknown Completed [facility] SARS-COV-2 COVID-19 PFIZER VACCINE Unknown Completed [facility] SARS-COV-2 COVID-19 PFIZER VACCINE Unknown Completed [facility] SARS-COV-2 COVID-19 PFIZER VACCINE Unknown Completed [facility] SARS-COV-2 COVID-19 PFIZER VACCINE Unknown Completed [facility] SARS-COV-2 COVID-19 PFIZER VACCINE Unknown Completed [facility] SARS-COV-2 COVID-19 PFIZER VACCINE Unknown Completed [facility] SARS-COV-2 COVID-19 PFIZER VACCINE Unknown Completed [facility] SARS-COV-2 COVID-19 PFIZER VACCINE Unknown Completed [facility] SARS-COV-2 COVID-19 PFIZER VACCINE Unknown Completed [facility] SARS-COV-2 COVID-19 PFIZER VACCINE Unknown Completed [facility] SARS-COV-2 COVID-19 PFIZER VACCINE Unknown Completed [facility] SARS-COV-2 COVID-19 PFIZER VACCINE Unknown Completed [facility] SARS-COV-2 COVID-19 PFIZER VACCINE Unknown Completed [facility] SARS-COV-2 COVID-19 PFIZER VACCINE Unknown Completed [facility] SARS-COV-2 COVID-19 PFIZER VACCINE Unknown Completed [facility] SARS-COV-2 COVID-19 PFIZER VACCINE Unknown Completed [facility] SARS-COV-2 COVID-19 PFIZER VACCINE Unknown Completed [facility] SARS-COV-2 COVID-19 PFIZER VACCINE Unknown Completed [facility] Influenza Virus Vaccine Unknown Completed [facility] TDAP Unknown Completed [facility] Influenza Virus Vaccine Unknown Completed [facility] TDAP Unknown Completed [facility] SARS-COV-2 COVID-19 PFIZER VACCINE Unknown Completed [facility] SARS-COV-2 COVID-19 PFIZER VACCINE Unknown Completed [facility] SARS-COV-2 COVID-19 PFIZER VACCINE Unknown Completed [facility] Influenza Virus Vaccine Unknown Completed [facility] TDAP Unknown Completed [facility] SARS-COV-2 COVID-19 PFIZER VACCINE Unknown Completed [facility] SARS-COV-2 COVID-19 PFIZER VACCINE Unknown Completed [facility] SARS-COV-2 COVID-19 PFIZER VACCINE Unknown Completed [facility] Influenza Virus Vaccine Unknown Completed [facility] TDAP Unknown Completed [facility] SARS-COV-2 COVID-19 PFIZER VACCINE Unknown Completed [facility] SARS-COV-2 COVID-19 PFIZER VACCINE Unknown Completed [facility] SARS-COV-2 COVID-19 PFIZER VACCINE Unknown Completed [facility] Influenza Virus Vaccine Unknown Completed [facility] TDAP Unknown Completed [facility] SARS-COV-2 COVID-19 PFIZER VACCINE Unknown Completed [facility] SARS-COV-2 COVID-19 PFIZER VACCINE Unknown Completed [facility] SARS-COV-2 COVID-19 PFIZER VACCINE Unknown Completed [facility] Influenza Virus Vaccine Unknown Completed [facility] TDAP Unknown Completed [facility] SARS-COV-2 COVID-19 PFIZER VACCINE Unknown Completed [facility] SARS-COV-2 COVID-19 PFIZER VACCINE Unknown Completed [facility] SARS-COV-2 COVID-19 PFIZER VACCINE Unknown Completed [facility] Influenza Virus Vaccine Unknown [facility] [facility] Completed [facility] SARS-COV-2 COVID-19 PFIZER VACCINE Unknown Completed [facility] SARS-COV-2 COVID-19 PFIZER VACCINE Unknown Completed [facility] SARS-COV-2 COVID-19 PFIZER VACCINE Unknown Completed [facility] Influenza Virus Vaccine Unknown Completed [facility] TDAP Unknown Completed [facility] Vital Signs Vital Name Observation Time Observation Value Comments S ource Systolic blood pressure 2024-03-01 16:28:00 152 mm[Hg] nurse notified. [facility] Diastolic blood pressure 2024-03-01 16:28:00 74 mm[Hg] nurse notified. [facility] Heart rate 2024-03-01 16:28:00 67 /min [facility] Body temperature 2024-03-01 16:28:00 36.06 Gabriela [facility] Respiratory rate 2024-03-01 16:28:00 22 /min [facility] Oxygen saturation in Arterial blood by Pulse oximetry 2024-03-01 16:28:00 96 /min [facility] Body height 2024-02-25 06:39:00 165.1 cm [facility] Body weight 2024-02-25 06:39:00 47.628 kg [facility] BMI 2024-02-25 06:39:00 17.47 kg/m2 [facility] Systolic blood pressure 2024-02-26 18:01:00 158 mm[Hg] [facility] Diastolic blood pressure 2024-02-26 18:01:00 76 mm[Hg] [facility] Heart rate 2024-02-26 18:01:00 64 /min [facility] Body temperature 2024-02-26 18:01:00 37.17 Gabriela [facility] Oxygen saturation in Arterial blood by Pulse oximetry 2024-02-26 18:01:00 92 /min [facility] Respiratory rate 2024-02-26 12:32:00 15 /min [facility] Body height 2024-02-25 06:39:00 165.1 cm [facility] Body weight 2024-02-25 06:39:00 47.628 kg [facility] BMI 2024-02-25 06:39:00 17.47 kg/m2 [facility] Heart rate 2024-02-03 01:18:00 74 /min [facility] Respiratory rate 2024-02-03 01:18:00 20 /min [facility] Oxygen saturation in Arterial blood by Pulse oximetry 2024-02-03 01:18:00 100 /min [facility] Systolic blood pressure 2024-02-03 01:05:00 158 mm[Hg] [facility] Diastolic blood pressure 2024-02-03 01:05:00 87 mm[Hg] [facility] Body temperature 2024-02-03 01:05:00 36.17 Gabriela [facility] Body height 2024-01-29 17:00:00 167.6 cm [facility] Body weight 2024-01-27 05:10:00 55.2 kg [facility] BMI 2024-01-27 05:10:00 19.64 kg/m2 [facility] Respiratory rate 2024-01-28 20:59:00 15 /min [facility] Heart rate 2024-01-28 17:09:00 72 /min [facility] Body temperature 2024-01-28 17:09:00 37.5 Gabriela [facility] Respiratory rate 2024-01-28 17:09:00 12 /min [facility] Oxygen saturation in Arterial blood by Pulse oximetry 2024-01-28 17:09:00 99 /min [facility] Systolic blood pressure 2024-01-28 17:00:00 154 mm[Hg] [facility] Diastolic blood pressure 2024-01-28 17:00:00 89 mm[Hg] [facility] Body weight 2024-01-27 05:10:00 55.2 kg [facility] BMI 2024-01-27 05:10:00 19.64 kg/m2 [facility] Systolic blood pressure 2024-01-18 20:44:00 144 mm[Hg] [facility] Diastolic blood pressure 2024-01-18 20:44:00 80 mm[Hg] [facility] Heart rate 2024-01-18 20:44:00 67 /min [facility] Body temperature 2024-01-18 20:44:00 37 Gabriela [facility] Respiratory rate 2024-01-18 20:44:00 16 /min [facility] Body height 2024-01-18 20:44:00 167.6 cm [facility] Body weight 2024-01-18 20:44:00 52.617 kg [facility] BMI 2024-01-18 20:44:00 18.72 kg/m2 [facility] Oxygen saturation in Arterial blood by Pulse oximetry 2024-01-18 20:44:00 100 /min [facility] Systolic blood pressure 2024-01-02 17:34:00 158 mm[Hg] [facility] Diastolic blood pressure 2024-01-02 17:34:00 78 mm[Hg] [facility] Heart rate 2024-01-02 17:30:00 98 /min [facility] Body temperature 2024-01-02 17:30:00 36 Gabriela [facility] Respiratory rate 2024-01-02 17:30:00 16 /min [facility] Body height 2024-01-02 17:30:00 167.6 cm [facility] Body weight 2024-01-02 17:30:00 53.57 kg [facility] BMI 2024-01-02 17:30:00 19.06 kg/m2 [facility] Oxygen saturation in Arterial blood by Pulse oximetry 2024-01-02 17:30:00 98 /min [facility] Systolic blood pressure 2023-11-29 18:15:00 176 mm[Hg] [facility] Diastolic blood pressure 2023-11-29 18:15:00 93 mm[Hg] [facility] Heart rate 2023-11-29 18:15:00 62 /min [facility] Respiratory rate 2023-11-29 18:15:00 16 /min [facility] Oxygen saturation in Arterial blood by Pulse oximetry 2023-11-29 18:15:00 100 /min [facility] Body temperature 2023-11-29 17:57:00 36.44 Gabriela [facility] Body weight 2023-11-20 23:00:00 53.524 kg [facility] BMI 2023-11-20 23:00:00 19.05 kg/m2 [facility] Systolic blood pressure 2023-11-29 15:56:00 178 mm[Hg] [facility] Diastolic blood pressure 2023-11-29 15:56:00 87 mm[Hg] [facility] Heart rate 2023-11-29 15:56:00 62 /min [facility] Body temperature 2023-11-29 15:56:00 36.44 Gabriela [facility] Respiratory rate 2023-11-29 15:56:00 18 /min [facility] Oxygen saturation in Arterial blood by Pulse oximetry 2023-11-29 15:56:00 98 /min [facility] Body weight 2023-11-20 23:00:00 53.524 kg [facility] BMI 2023-11-20 23:00:00 19.05 kg/m2 [facility] Systolic blood pressure 2023-10-25 19:05:00 162 mm[Hg] [facility] Diastolic blood pressure 2023-10-25 19:05:00 64 mm[Hg] [facility] Heart rate 2023-10-25 19:05:00 60 /min [facility] Respiratory rate 2023-10-25 19:05:00 17 /min [facility] Oxygen saturation in Arterial blood by Pulse oximetry 2023-10-25 19:05:00 99 /min [facility] Body temperature 2023-10-25 18:48:00 36.44 Gabriela [facility] Body height 2023-10-25 16:41:00 167.6 cm [facility] Body weight 2023-10-25 16:41:00 53.978 kg [facility] BMI 2023-10-25 16:41:00 19.21 kg/m2 [facility] Systolic blood pressure 2023-10-25 16:41:00 189 mm[Hg] [facility] Diastolic blood pressure 2023-10-25 16:41:00 92 mm[Hg] [facility] Heart rate 2023-10-25 16:41:00 63 /min [facility] Body temperature 2023-10-25 16:41:00 36.44 Gabriela [facility] Respiratory rate 2023-10-25 16:41:00 16 /min [facility] Body height 2023-10-25 16:41:00 167.6 cm [facility] Body weight 2023-10-25 16:41:00 53.978 kg [facility] BMI 2023-10-25 16:41:00 19.21 kg/m2 [facility] Oxygen saturation in Arterial blood by Pulse oximetry 2023-10-25 16:41:00 99 /min [facility] Systolic blood pressure 2023-08-15 21:21:00 165 mm[Hg] [facility] Diastolic blood pressure 2023-08-15 21:21:00 88 mm[Hg] [facility] Heart rate 2023-08-15 21:21:00 75 /min [facility] Body temperature 2023-08-15 21:21:00 35.89 Gabriela [facility] Respiratory rate 2023-08-15 21:21:00 16 /min [facility] Body height 2023-08-15 21:21:00 165.1 cm [facility] Body weight 2023-08-15 21:21:00 54.205 kg [facility] BMI 2023-08-15 21:21:00 19.89 kg/m2 [facility] Oxygen saturation in Arterial blood by Pulse oximetry 2023-08-15 21:21:00 100 /min [facility] Systolic blood pressure 2023-07-12 18:03:00 126 mm[Hg] [facility] Diastolic blood pressure 2023-07-12 18:03:00 61 mm[Hg] [facility] Heart rate 2023-07-12 18:03:00 67 /min [facility] Respiratory rate 2023-07-12 18:03:00 12 /min [facility] Oxygen saturation in Arterial blood by Pulse oximetry 2023-07-12 18:03:00 96 /min [facility] Body temperature 2023-07-12 17:34:00 36 Gabriela [facility] Body height 2023-07-12 15:05:00 167.6 cm [facility] Body weight 2023-07-12 15:05:00 53.524 kg [facility] BMI 2023-07-12 15:05:00 19.05 kg/m2 [facility] Body temperature 2023-07-12 15:05:00 36.61 Gabriela [facility] Respiratory rate 2023-07-12 15:05:00 20 /min [facility] Body height 2023-07-12 15:05:00 167.6 cm [facility] Body weight 2023-07-12 15:05:00 53.524 kg [facility] BMI 2023-07-12 15:05:00 19.05 kg/m2 [facility] Oxygen saturation in Arterial blood by Pulse oximetry 2023-07-12 15:05:00 100 /min [facility] Systolic blood pressure 2023-05-23 20:53:00 185 mm[Hg] [facility] Diastolic blood pressure 2023-05-23 20:53:00 88 mm[Hg] [facility] Heart rate 2023-05-23 20:53:00 80 /min [facility] Body temperature 2023-05-23 20:53:00 36.28 Gabriela [facility] Respiratory rate 2023-05-23 20:53:00 17 /min [facility] Body height 2023-05-23 20:53:00 167.6 cm [facility] Body weight 2023-05-23 20:53:00 57.017 kg [facility] BMI 2023-05-23 20:53:00 20.29 kg/m2 [facility] Oxygen saturation in Arterial blood by Pulse oximetry 2023-05-23 20:53:00 98 /min [facility] Systolic blood pressure 2022-05-02 16:22:00 128 mm[Hg] [facility] Diastolic blood pressure 2022-05-02 16:22:00 72 mm[Hg] [facility] Heart rate 2022-05-02 16:22:00 65 /min [facility] Body temperature 2022-05-02 16:22:00 36.72 Gabriela [facility] Respiratory rate 2022-05-02 16:22:00 18 /min [facility] Body height 2022-05-02 16:22:00 167.6 cm [facility] Body weight 2022-05-02 16:22:00 60.238 kg [facility] BMI 2022-05-02 16:22:00 21.43 kg/m2 [facility] Body weight 2022-04-22 15:16:00 61.598 kg [facility] BMI 2022-04-22 15:16:00 21.92 kg/m2 [facility] Systolic blood pressure 2022-04-20 14:41:00 132 mm[Hg] [facility] Diastolic blood pressure 2022-04-20 14:41:00 68 mm[Hg] [facility] Heart rate 2022-04-20 14:41:00 70 /min [facility] Respiratory rate 2022-04-20 14:41:00 16 /min [facility] Body height 2022-04-20 14:41:00 167.6 cm [facility] Body weight 2022-04-20 14:41:00 63.413 kg [facility] BMI 2022-04-20 14:41:00 22.56 kg/m2 [facility] Oxygen saturation in Arterial blood by Pulse oximetry 2022-04-20 14:41:00 97 /min room air [facility] Systolic blood pressure 2022-04-18 17:07:00 111 mm[Hg] [facility] Diastolic blood pressure 2022-04-18 17:07:00 46 mm[Hg] [facility] Respiratory rate 2022-04-18 17:07:00 18 /min [facility] Oxygen saturation in Arterial blood by Pulse oximetry 2022-04-18 17:07:00 90 /min [facility] Heart rate 2022-04-18 12:30:00 70 /min [facility] Body temperature 2022-04-18 12:30:00 36.17 Gabriela [facility] Body height 2022-04-08 10:56:00 167.6 cm [facility] Body weight 2022-04-08 10:56:00 60.5 kg [facility] BMI 2022-04-08 10:56:00 21.53 kg/m2 [facility] Systolic blood pressure 2022-04-08 10:56:00 150 mm[Hg] [facility] Diastolic blood pressure 2022-04-08 10:56:00 69 mm[Hg] [facility] Heart rate 2022-04-08 10:56:00 60 /min [facility] Body temperature 2022-04-08 10:56:00 36.22 Gabriela [facility] Respiratory rate 2022-04-08 10:56:00 18 /min [facility] Body height 2022-04-08 10:56:00 167.6 cm [facility] Body weight 2022-04-08 10:56:00 60.5 kg [facility] BMI 2022-04-08 10:56:00 21.53 kg/m2 [facility] Oxygen saturation in Arterial blood by Pulse oximetry 2022-04-08 10:56:00 98 /min [facility] Systolic blood pressure 2022-03-11 16:27:00 171 mm[Hg] [facility] Diastolic blood pressure 2022-03-11 16:27:00 89 mm[Hg] [facility] Heart rate 2022-03-11 16:27:00 64 /min [facility] Body temperature 2022-03-11 16:22:00 35.61 Gabriela [facility] Body height 2022-03-11 16:22:00 167.6 cm [facility] Body weight 2022-03-11 16:22:00 61.236 kg [facility] BMI 2022-03-11 16:22:00 21.79 kg/m2 [facility] Oxygen saturation in Arterial blood by Pulse oximetry 2022-03-11 16:22:00 99 /min [facility] Systolic blood pressure 2022-03-11 16:27:00 171 mm[Hg] [facility] Diastolic blood pressure 2022-03-11 16:27:00 89 mm[Hg] [facility] Heart rate 2022-03-11 16:27:00 64 /min [facility] Body temperature 2022-03-11 16:22:00 35.61 Gabriela [facility] Body height 2022-03-11 16:22:00 167.6 cm [facility] Body weight 2022-03-11 16:22:00 61.236 kg [facility] BMI 2022-03-11 16:22:00 21.79 kg/m2 [facility] Oxygen saturation in Arterial blood by Pulse oximetry 2022-03-11 16:22:00 99 /min [facility] Systolic blood pressure 2021-12-20 18:54:00 171 mm[Hg] [facility] Diastolic blood pressure 2021-12-20 18:54:00 75 mm[Hg] [facility] Heart rate 2021-12-20 18:54:00 60 /min [facility] Body temperature 2021-12-20 18:53:00 36.83 Gabriela [facility] Respiratory rate 2021-12-20 18:53:00 20 /min [facility] Body height 2021-12-20 18:53:00 167.6 cm [facility] Body weight 2021-12-20 18:53:00 62.097 kg [facility] BMI 2021-12-20 18:53:00 22.10 kg/m2 [facility] Systolic blood pressure 2021-12-20 18:54:00 171 mm[Hg] [facility] Diastolic blood pressure 2021-12-20 18:54:00 75 mm[Hg] [facility] Heart rate 2021-12-20 18:54:00 60 /min [facility] Body temperature 2021-12-20 18:53:00 36.83 Gabriela [facility] Respiratory rate 2021-12-20 18:53:00 20 /min [facility] Body height 2021-12-20 18:53:00 167.6 cm [facility] Body weight 2021-12-20 18:53:00 62.097 kg [facility] BMI 2021-12-20 18:53:00 22.10 kg/m2 [facility] Body height 2024-01-29 17:00:00 167.6 cm [facility] Heart rate 2024-01-29 16:00:00 74 /min [facility] Body temperature 2024-01-29 16:00:00 37.72 Gabriela [facility] Respiratory rate 2024-01-29 16:00:00 9 /min [facility] Oxygen saturation in Arterial blood by Pulse oximetry 2024-01-29 16:00:00 99 /min [facility] Systolic blood pressure 2024-01-28 21:30:00 122 mm[Hg] [facility] Diastolic blood pressure 2024-01-28 21:30:00 63 mm[Hg] [facility] Body weight 2024-01-27 05:10:00 55.2 kg [facility] BMI 2024-01-27 05:10:00 19.64 kg/m2 [facility] Procedures Procedure Date / Time Performed Performing Clinician Source MAGNESIUM 2024-03-01 14:46:[facility] [place] [facility] (NA, K , CL, CO2, GLUCOSE, BUN, CREATININE, CA) 2024-03-01 14:46:00 [facility] [place] [facility]FF 2024-03-01 14:46:00 [facility] MAG[facility]IUM 2024-02-29 09:56:00 [facility] [place] [facility]OLIC PANEL (NA, K , CL, CO2, GLUCOSE, BUN, CREATININE, CA) 2024-02-29 09:56:00 [facility] [place] [facility]FF 2024-02-29 09:56:00 [facility] MAGNESIUM 2024-02-28 09:36:00 [facility] BASIC METABOLIC PANEL (NA, K , CL, CO2, GLUCOSE, BUN, CREATININE, CA) 2024-02-28 09:36:00 [facility] [place] [facility]FF 2024-02-28 09:36:00 [facility] [place] [facility] 2024-02-27 08:42:00 [facility] BASIC METABOLIC PANEL (NA, K , CL, CO2, GLUCOSE, BUN, CREATININE, CA) 2024-02-27 08:42:00 Peter [facility] CBC WITH DIFF 2024-02-27 08:42:00 Peter [facility] MAGNESIUM 2024-02-27 08:42:00 Peter [facility] BASIC METABOLIC PANEL (NA, K , CL, CO2, GLUCOSE, BUN, CREATININE, CA) 2024-02-27 08:42:00 Peter [facility] CBC WITH DIFF 2024-02-27 08:42:00 Peter [facility] PREPARE PACKED RBC 2024-02-26 23:46:57 [facility] PREPARE PACKED RBC 2024-02-26 23:46:57 Eddie Luisito [facility] FUNGUS (ROUTINE) CULTURE 2024-02-26 22:15:00 Radha Lozano [facility] FUNGUS (ROUTINE) CULTURE 2024-02-26 22:15:00 Radha Lozano [facility] BODY FLUID CULTURE(AEROBIC/ANAEROBIC) 2024-02-26 22:15:00 Emmanuel Jerez [facility] FUNGUS (ROUTINE) CULTURE 2024-02-26 22:07:00 Radha Lozano [facility] FUNGUS (ROUTINE) CULTURE 2024-02-26 22:07:00 Radha Lozano [facility] TISSUE CULTURE(AEROBIC/ANAEROBIC) 02-25 22:07:00 Radha Lozano [facility] TRANSFUSE PACKED RBC 2024-02-26 22:05:00 Luisito Morgan [facility] TRANSFUSE PACKED RBC 2024-02-26 22:05:00 Luisito Morgan [facility] INTUBATION 2024-02-26 21:29[facility] [id number] [place] DE[facility]ID[facility] MUSCL E &/FASCIA 1ST 20 SQ CM/< 2024-02-26 20:48:00 Lozano Radha Key [facility] [id number] - [place] DEBRIDEMENT MUSCL E &/FASCIA 1ST 20 SQ CM/< 2024-02-26 20:48:00 Blake Radha Key [facility] MAGNESIUM 2024-02-26 10:28:00 Demetrius Thrasher [facility] BASIC METABOLIC PANEL (NA, K , CL, CO2, GLUCOSE, BUN, CREATININE, CA) 2024-02-26 10:28:00 Demterius Thrasher [facility] CBC WITH DIFF 2024-02-26 10:28:00 Demetrius Thrasher [facility] MAGNESIUM 2024-02-26 10:28:00 Demetrius Thrasher [facility] BASIC METABOLIC PANEL (NA, K , CL, CO2, GLUCOSE, BUN, CREATININE, CA) 2024-02-26 10:28:00 Demetrius Thrasher [facility] CBC WITH DIFF 2024-02-26 10:28:00 Demetrius Thrasher [facility] CT ANGIOGRAM LOWER EXTREMITY RIGHT W CONTRAST 2024-02-25 21:29:37 Peter [facility] CT ANGIOGRAM LOWER EXTREMITY RIGHT W CONTRAST 2024-02-25 21:29:37 Solitario Green [facility] CBC WITHOUT DIFF 2024-02-25 17:44:00 Mirela Bryant Sarmad [facility] CBC WITHOUT DIFF 2024-02-25 17:44:00 Mirela Bryant [facility] PREPARE PACKED RBC 2024-02-25 14:03:01 Mirela Bryant [facility] PREPARE PACKED RBC 2024-02-25 14:03:01 Mirela Bryant [facility] CBC WITHOUT DIFF 2024-02-25 10:13:00 Mirela Bryant [facility] CBC WITHOUT DIFF 2024-02-25 10:13:00 Mirela Bryant [facility] OSMOLALITY URINE 2024-02-25 09:29:00 Mirela Bryant [facility] URINALYSIS 2024-02-25 09:29:00 Mirela Bryant [facility] CREATININE, URINE RANDOM 2024-02-25 09:29:00 Mirela Bryant [facility] SODIUM, URINE RANDOM 2024-02-25 09:29:00 Mirela Bryant [facility] OSMOLALITY URINE 2024-02-25 09:29:00 Mirela Bryant [facility] URINALYSIS 2024-02-25 09:29:00 Mirela Bryant Sarmad [facility] CREATININE, URINE RANDOM 2024-02-25 09:29:00 Mirela Bryant [facility] SODIUM, URINE RANDOM 2024-02-25 09:29:00 Mirela Bryant Sarmad [facility] MAGNESIUM 2024-02-25 09:18:00 Mirela Bryant [facility] BASIC METABOLIC PANEL (NA, K , CL, CO2, GLUCOSE, BUN, CREATININE, CA) 2024-02-25 09:18:00 Mirela Bryant [facility] CBC WITH DIFF 2024-02-25 09:18:00 Mirela Bryant Sarmad [facility] MAGNESIUM 2024-02-25 09:18:00 Mirela Bryant [facility] BASIC METABOLIC PANEL (NA, K , CL, CO2, GLUCOSE, BUN, CREATININE, CA) 2024-02-25 09:18:00 Mirela Bryant [facility] CBC WITH DIFF 2024-02-25 09:18:00 Mirela Bryant Sarmad [facility] NAMIA AURIS SURVEILLANCE B Y PCR (INFECTION CONTROL PURPOSES) 2024-02-25 03:40:00 Mirela Bryant Sarmad [facility] NAIMA AURIS SURVEILLANCE B Y PCR (INFECTION CONTROL PURPOSES) 2024-02-25 03:40:00 Mirela Bryant [facility] CT HEAD WO CONTRAST 2024-02-25 01:25:33 Ranjit George [facility] CT HEAD WO CONTRAST 2024-02-25 01:25:33 Ranjit George [facility] XR FEMUR 2 VW RIGHT 2024-02-24 23:18:34 Tam[facility] XR HIPS 2 VW RIGHT 2024-02-24 23:18:34 Tam[facility] XR FEMUR 2 VW RIGHT 2024-02-24 23:18:34 Tam[facility] XR HIPS 2 VW RIGHT 2024-02-24 23:18:34 [facility] FERRITIN SERUM 2024-02-24 22:23:00 Mirela Bryant [facility] OSMOLALITY, SERUM OR PLASMA 2024-02-24 22:23:00 Mirela Bryant [facility] COMP. METABOLIC PANEL ([id number]) 2024-02-24 22:23:00 [facility] IRON PANEL 2024-02-24 22:23:00 Mirela Bryant [facility] CBC WITH DIFF 2024-02-24 22:23:00 [facility] PROTHROMBIN TIME / INR 2024-02-24 22:23:00 [facility] HB INDIRECT ANTIGLOBULIN TEST 2024-02-24 22:23:00 [facility] ABORH INVESTIGATION 2024-02-24 22:23:00 [facility] FERRITIN SERUM 2024-02-24 22:23:00 Mirela Bryant [facility] OSMOLALITY, SERUM OR PLASMA 2024-02-24 22:23:00 Mirela Bryant [facility] COMP. METABOLIC PANEL ([id number]) 2024-02-24 22:23:00 [facility] IRON PANEL 2024-02-24 22:23:00 Mirela Bryant [facility] CBC WITH DIFF 2024-02-24 22:23:00 Tam[facility] PROTHROMBIN TIME / INR 2024-02-24 22:23:00 Tam[facility] HB INDIRECT ANTIGLOBULIN TEST 2024-02-24 22:23:00 Jehle, [facility] ABORH INVESTIGATION 2024-02-24 22:23:00 Eric Tomas [facility] POCT GLUCOSE (AUTOMATED) 2024-02-03 01:34:00 Casandra Washingtoneshan [facility] POCT GLUCOSE (AUTOMATED) 2024-02-02 21:31:00 Casandra Washingtoneshan [facility] POCT GLUCOSE (AUTOMATED) 2024-02-02 16:29:00 Casandra Washingtoneshan [facility] POCT GLUCOSE (AUTOMATED) 2024-02-02 13:24:00 Casandra Washingtoneshan [facility] MAGNESIUM 2024-02-02 09:48:00 S[facility] BASIC METABOLIC PANEL (NA, K , CL, CO2, GLUCOSE, BUN, CREATININE, CA) 2024-02-02 09:48:00 Sophy Chacon Meghan [facility] CBC WITH DIFF 2024-02-02 09:48:00 Sophy [facility] POCT GLUCOSE (AUTOMATED) 2024-02-02 01:27:00 Casandra Washingtoneshan [facility] CBC WITH DIFF 2024-02-01 23:18:00 Sophy Chacon Meghan [facility] POCT GLUCOSE (AUTOMATED) 2024-02-01 22:30:00 Casandra Joyce [facility] ACTIVATED PARTIAL THRMPLAS DAVI 1 18:16:00 Sophy Chacon Meghan [facility] POCT GLUCOSE (AUTOMATED) 2024-02-01 17:01:00 Casandra Joyce [facility] POCT GLUCOSE (AUTOMATED) 2024-02-01 12:58:00 Casandra [facility] [facility] 2024-02-01 08:35:00 Sophy Chacon Meghan [facility] BASIC METABOLIC PANEL (NA, K , CL, CO2, GLUCOSE, BUN, CREATININE, CA) 2024-02-01 08:35:00 Sophy Chaconfany [facility] CBC WITH DIFF 2024-02-01 08:35:00 Sophy Chacon Meghan [facility] POCT GLUCOSE (AUTOMATED) 2024-02-01 01:06:00 Casandra Joyce [facility] CBC WITH DIFF 2024-02-01 00:07:00 Sophy Chacon Meghan [facility] POCT GLUCOSE (AUTOMATED) 2024-01-31 21:55:00 Casandra Joyce [facility] POCT GLUCOSE (AUTOMATED) 2024-01-31 17:45:00 Casandra Joyce [facility] CBC WITH DIFF 2024-01-31 13:03:00 Sophy [facility] POCT GLUCOSE (AUTOMATED) 2024-01-31 13:01:00 Casandra Joyce [facility] COMP. METABOLIC PANEL (12452) 2024-01-31 08:32:00 [facility]FF 2024-01-31 08:32:00 Melissa Oneill [facility] CBC WITH DIFF 2024-01-31 07:08:00 Melissa Oneill [facility] HB ECG ROUTINE & RHYTHM STRIP 2024-01-31 04:20:58 Marques Clayton [facility] MAGNESIUM 2024-01-31 02:00:00 [facility] (NA, K , CL, CO2, GLUCOSE, BUN, CREATININE, CA) 2024-01-31 02:00:00 Matilde [facility] EXTRA TUBE DK. GREEN 2024-01-31 02:00:00 Mason Linn [facility] POCT GLUCOSE (AUTOMATED) 2024-01-31 01:21:00 Casandra Joyce [facility] BLOOD CULTURE SCREEN 2024-01-31 01:05:00 Clayton, Marques [facility] BLOOD CULTURE SCREEN 2024-01-31 01:04:00 [facility] CBC WITH DIFF 2024-01-31 01:04:00 Melissa Oneill [facility] EXTRA TUBE LAV 2024-01-31 01:04:00 Mason Linn [facility] URINALYSIS 2024-01-30 21:07:00 Marques Clayton [facility] HB DIRECT ANTIGLOBULIN (POLY SPEC 01-29 21:07:00 Matilde [facility] XR KUB 2024-01-30 20:30:20 Melissa Oneill [facility] CBC WITH DIFF 2024-01-30 17:44:00 Nino Melissa [facility] POCT GLUCOSE (AUTOMATED) 2024-01-30 17:20:00 Casandra Joyce [facility] TRANSFUSE PACKED RBC 2024-01-30 15:10:00 Hilda Gutiérrez [facility] PREPARE PACKED RBC 2024-01-30 13:49:17 Nino [facility] POCT GLUCOSE (AUTOMATED) 2024-01-30 13:04:00 Casandra Joyce [facility] TRANSFUSE PACKED RBC 2024-01-30 11:05:00 Matilde [facility] PREPARE PACKED RBC 2024-01-30 11:00:10 Matilde [facility] CBC WITH DIFF 2024-01-30 10:05:00 Mason Linn [facility] MAGNESIUM 2024-01-30 07:45:00 Sophy [facility] BASIC METABOLIC PANEL (NA, K , CL, CO2, GLUCOSE, BUN, CREATININE, CA) 2024-01-30 07:45:00 Sophy [facility] CBC WITH DIFF 2024-01-30 07:45:00 Sophy [facility] POCT GLUCOSE (AUTOMATED) 2024-01-30 01:40:00 Casandra Joyce [facility] POCT GLUCOSE (AUTOMATED) 2024-01-29 21:34:00 Casandra Joyce [facility] MR STROKE BRAIN WO CONTRAST 2024-01-29 19:05:00 Elijah Dillardlincolnlane [facility] MR STROKE BRAIN WO CONTRAST 2024-01-29 19:05:00 Elijah Dillard [facility] POCT GLUCOSE (AUTOMATED) 2024-01-29 17:00:00 Casandra Joyce [facility] POCT GLUCOSE (AUTOMATED) 2024-01-29 17:00:00 Casandra Joyce [facility] POCT GLUCOSE (AUTOMATED) 2024-01-29 17:00:00 Casandra Joyce [facility] ACTIVATED PARTIAL THRMPLAS DAVI 2024-01-02 9 16:58:00 Sophy Chacon Meghan [facility] ACTIVATED PARTIAL THRMPLAS DAVI 2024-01-02 9 16:58:00 Sophy Chacon Meghan [facility] POCT GLUCOSE (AUTOMATED) 2024-01-29 12:33:00 Casandra Joyce [facility] POCT GLUCOSE (AUTOMATED) 2024-01-29 12:33:00 Casandra Joyce [facility] POCT GLUCOSE (AUTOMATED) 2024-01-29 12:33:00 Casandra Joyce [facility] XR CHEST 1 VW 2024-01-29 10:21:00 Marques Clayton [facility] MAGNESIUM 2024-01-29 07:01:00 Marques Clayton [facility] BASIC METABOLIC PANEL (NA, K , CL, CO2, GLUCOSE, BUN, CREATININE, CA) 2024-01-29 07:01:00 Marques Clayton [facility] CBC WITH DIFF 2024-01-29 07:01:00 Marques Clayton [facility] MAGNESIUM 2024-01-29 07:01:00 Matilde Marques [facility] BASIC METABOLIC PANEL (NA, K , CL, CO2, GLUCOSE, BUN, CREATININE, CA) 2024-01-29 07:01:00 [facility]FF 2024-01-29 07:01:00 Matilde Marques [facility] MAGNESIUM 2024-01-29 07:01:00 [facility]ilde [facility] BASIC METABOLIC PANEL (NA, K , CL, CO2, GLUCOSE, BUN, CREATININE, CA) 2024-01-29 07:01:00 [facility] CBC WITH DIFF 2024-01-29 07:01:00 Matilde [facility] POCT GLUCOSE (AUTOMATED) 2024-01-29 01:26:00 Casandra Joyce [facility] POCT GLUCOSE (AUTOMATED) 2024-01-29 01:26:00 Casandra Joyce [facility] POCT GLUCOSE (AUTOMATED) 2024-01-29 01:26:00 Casandra Joyce [facility] ELECTROENCEPHALOGRAM 2024-01-29 00:00:00 [facility] 2024-01-29 00:00:00 Matilde [facility] ELECTROENCEPHALOGRAM 2024-01-29 00:00:00 Marques Clayton [facility] CT HEAD WO CONTRAST 2024-01-28 23:28:32 Casandra Joyce [facility] CT HEAD WO CONTRAST 2024-01-28 23:28:32 Casandra Joyce [facility] CT HEAD WO CONTRAST 2024-01-28 23:28:32 Casandra Joyce [facility] XR HIPS 2 VW RIGHT 2024-01-28 22:10:[address] [facility] XR HIPS 2 VW RIGHT 2024-01-28 22:10:57 Steven Mullins [facility] POCT GLUCOSE (AUTOMATED) 2024-01-28 22:02:00 Casandra Joyce [facility] POCT GLUCOSE (AUTOMATED) 2024-01-28 22:02:00 Casandra Joyce [facility] POCT GLUCOSE (AUTOMATED) 2024-01-28 22:02:00 Casandra Joyce [facility] ABG+COOX+NA+K+GLU+CA2+ 2024-01-28 20:23:00 Casandra Joyce [facility] ABG+COOX+NA+K+GLU+CA2+ 2024-01-28 18:45:00 Casandra Joyce [facility] ARTERIAL LINE 2024-01-28 18:25:00 Jluis Barksdale Lei [facility] ARTERIAL LINE 2024-01-28 18:25:00 Jluis Barksdale Lei [facility] NERVE BLOCK 2024-01-28 18:23:52 Yunior Byron [facility] NERVE BLOCK 2024-01-28 18:23:52 Yunior Byron [facility] INTUBATION 2024-01-28 17:58:00 Jluis Barksdale Lei [facility] INTUBATION 2024-01-28 17:58:00 Jluis Barksdale [facility] HIP HEMIARTHROPLASTY 2024-01-28 17:33:00 LozanoRadha fuentes [facility] HIP HEMIARTHROPLASTY 2024-01-28 17:33:00 LozanoRadha fuentes [facility] HIP HEMIARTHROPLASTY 2024-01-28 17:33:00 LozanoRadha fuentes [facility] DUPLEX VENOUS LEGS BILATERAL - BY VASCULAR LAB 2024-01-28 16:41:00 Ghazal Araiza [facility] DUPLEX VENOUS LEGS BILATERAL - BY VASCULAR LAB 2024-01-28 16:41:00 Ghazal Araiza [facility] DUPLEX VENOUS LEGS BILATERAL - BY VASCULAR LAB 2024-01-28 16:41:00 Ghazal Araiza [facility] POCT GLUCOSE (AUTOMATED) 2024-01-28 16:39:00 Casandra Joyce [facility] POCT GLUCOSE (AUTOMATED) 2024-01-28 16:39:00 Casandra Joyce [facility] POCT GLUCOSE (AUTOMATED) 2024-01-28 16:39:00 Casandra Joyce [facility] POCT GLUCOSE (AUTOMATED) 2024-01-28 12:44:00 Casandra Joyce [facility] POCT GLUCOSE (AUTOMATED) 2024-01-28 12:44:00 Casandra Joyce [facility] POCT GLUCOSE (AUTOMATED) 2024-01-28 12:44:00 Casandra Joyce [facility] BASIC METABOLIC PANEL (NA, K , CL, CO2, GLUCOSE, BUN, CREATININE, CA) 2024-01-28 09:33:00 [facility]-28 09:33:00 Ghazal Araiza [facility] CBC WITH DIFF 2024-01-28 09:33:00 [facility]24-01-28 09:33:00 Ghazal Araiza [facility] BASIC METABOLIC PANEL (NA, K , CL, CO2, GLUCOSE, BUN, CREATININE, CA) 2024-01-28 09:33:00 Ghazal Araiza [facility] CBC WITH DIFF 2024-01-28 09:33:00 Ghazal Araiza [facility] MAGNESIUM 2024-01-28 09:33:00 Ghazal Araiza [facility] BASIC METABOLIC PANEL (NA, K , CL, CO2, GLUCOSE, BUN, CREATININE, CA) 2024-01-28 09:33:00 Ghazal Araiza [facility] CBC WITH DIFF 2024-01-28 09:33:00 Ghazal Araiza [facility] POCT GLUCOSE (AUTOMATED) 2024-01-28 01:29:00 Casandra Joyce [facility] POCT GLUCOSE (AUTOMATED) 2024-01-28 01:29:00 Casandra Joyce [facility] POCT GLUCOSE (AUTOMATED) 2024-01-28 01:29:00 Casandra Joyce [facility] POCT GLUCOSE (AUTOMATED) 2024-01-27 22:02:00 Casandra Joyce [facility] POCT GLUCOSE (AUTOMATED) 2024-01-27 22:02:00 Casandra Joyce [facility] POCT GLUCOSE (AUTOMATED) 2024-01-27 22:02:00 Casandra Joyce [facility] TRANSTHORACIC ECHO (TTE) COMPLETE 01-26 16:56:00 Elijah Dillard [facility] TRANSTHORACIC ECHO (TTE) COMPLETE 01-26 16:56:00 Elijah Dillard [facility] TRANSTHORACIC ECHO (TTE) COMPLETE 01-26 16:56:00 Elijah Dillard [facility] POCT GLUCOSE (AUTOMATED) 2024-01-27 16:41:00 Casandra Joyce [facility] POCT GLUCOSE (AUTOMATED) 2024-01-27 16:41:00 Casandra Joyce [facility] POCT GLUCOSE (AUTOMATED) 2024-01-27 16:41:00 Casadnra Joyce [facility] POCT GLUCOSE (AUTOMATED) 2024-01-27 12:52:00 Casandra Joyce [facility] POCT GLUCOSE (AUTOMATED) 2024-01-27 12:52:00 Casandra Joyce [facility] POCT GLUCOSE (AUTOMATED) 2024-01-27 12:52:00 Casandra Joyce [facility] HB ECG ROUTINE & RHYTHM STRIP 2024-01-27 12:07:24 Ghazal Araiza [facility] HB ECG ROUTINE & RHYTHM STRIP 2024-01-27 12:07:24 Ghazal Araiza [facility] HB ECG ROUTINE & RHYTHM STRIP 2024-01-27 12:07:24 Ghazal Araiza [facility] PREPARE PACKED RBC 2024-01-27 11:28:15 Luis Alfredo Mata [facility] PREPARE PACKED RBC 2024-01-27 11:28:15 Luis Alfredo Mata [facility] PREPARE PACKED RBC 2024-01-27 11:27:53 Alvarado Wood [facility] PREPARE PACKED RBC 2024-01-27 11:27:53 Alvarado Wood [facility] XR FEMUR 2 VW RIGHT 2024-01-27 11:11:00 Alvarado Wood [facility] XR FEMUR 2 VW RIGHT 2024-01-27 11:11:00 [facility] XR FEMUR 2 VW RIGHT 2024-01-27 11:11:00 Alvarado Wood [facility] IR ANGIOGRAM CEREBRAL 2024-01-27 08:30:00 John Magaña [facility] IR ANGIOGRAM CEREBRAL 2024-01-27 08:30:00 John Magaña [facility] IR ANGIOGRAM CEREBRAL 2024-01-27 08:30:00 John Magaña [facility] URINALYSIS 2024-01-27 06:38:00 Leyla Meraz [facility] URINALYSIS 2024-01-27 06:38:00 Leyla Meraz [facility] URINALYSIS 2024-01-27 06:38:00 Leyla Meraz [facility] CT ABDOMEN PELVIS WO CONTRAST 2024-01-27 06:20:54 Noemi Novak [facility] CT THORAX WO CONTRAST 2024-01-27 06:20:54 Noemi Novak [facility] CT ABDOMEN PELVIS WO CONTRAST 2024-01-27 06:20:54 Noemi Novak [facility] CT THORAX WO CONTRAST 2024-01-27 06:20:54 Scarlet, Noemi [facility] CT ABDOMEN PELVIS WO CONTRAST 2024-01-27 06:20:54 Scarlet [facility] CT THORAX WO CONTRAST 2024-01-27 06:20:54 Scarlet Noemi [facility] XR CHEST 1 2024-01-27 06:07:00 Scarlet [facility] LACTIC ACID WHOLE BLOOD 2024-01-27 06:07:00 Scarlet [facility] XR CHEST 1 2024-01-27 06:07:00 Scarlet [facility] LACTIC ACID WHOLE BLOOD 2024-01-27 06:07:00 Scarlet Noemi [facility] XR CHEST 1 2024-01-27 06:07:00 Scarlet [facility] LACTIC ACID WHOLE BLOOD 2024-01-27 06:07:00 Scarlet [facility] N-TERMINAL PRO-BNP 2024-01-27 06:03:00 Scarlet Noemi [facility] HB INDIRECT ANTIGLOBULIN TEST 2024-01-27 06:03:00 Scarlet [facility] ABORH INVESTIGATION 2024-01-27 06:03:00 Leyla Meraz [facility] LIPID PANEL (17654)(TOTAL CHOLESTEROL, TRIGLYCERIDES, HDL) 2024-01-27 06:03:00 [place]jah [place] [facility] LIPID PANEL (22855)(TOTAL CHOLESTEROL, TRIGLYCERIDES, HDL) 2024-01-27 06:03:00 Elijah Dillard [facility] HB INDIRECT ANTIGLOBULIN TEST 2024-01-27 06:03:00 Scarlet Noemi [facility] N-TERMINAL PRO-BNP 2024-01-27 06:03:00 Scarlet [facility] ABORH INVESTIGATION 2024-01-27 06:03:00 Leyla Meraz [facility] LIPID PANEL (44188)(TOTAL CHOLESTEROL, TRIGLYCERIDES, HDL) 2024-01-27 06:03:00 Elijah [place] [facility] HB INDIRECT ANTIGLOBULIN TEST 2024-01-27 06:03:00 Noemi Novak [facility] N-TERMINAL PRO-BNP 2024-01-27 06:03:00 Noemi Novak [facility] ABORH INVESTIGATION 2024-01-27 06:03:00 Leyla Meraz [facility] HB ECG ROUTINE & RHYTHM STRIP 2024-01-27 05:55:53 Leyla Meraz [facility] HB ECG ROUTINE & RHYTHM STRIP 2024-01-27 05:55:53 Leyla Meraz [facility] HB ECG ROUTINE & RHYTHM STRIP 2024-01-27 05:55:53 Leyla Meraz [facility] XR HIPS 2 VW RIGHT 2024-01-27 05:51:36 Noemi Novak [facility] XR HIPS 2 VW RIGHT 2024-01-27 05:51:36 Noemi Novak [facility] XR HIPS 2 VW RIGHT 2024-01-27 05:51:36 Noemi Novak [facility] PROTHROMBIN TIME / INR 2024-01-27 05:37:00 Leyla Meraz [facility] ACTIVATED PARTIAL THRMPLAS DAVI 2024-01-02 7 05:37:00 Leyla Meraz [facility] CBC WITHOUT DIFF 2024-01-27 05:37:00 Leyla Meraz [facility] TROPONIN I 2024-01-27 05:37:00 Leyla Meraz [facility] BASIC METABOLIC PANEL (NA, K , CL, CO2, GLUCOSE, BUN, CREATININE, CA) 2024-01-27 05:37:00 Leyla Meraz [facility] GLYCOSYLATED HEMOGLOBIN (A1C) 2024-01-27 05:37:00 Elijah Dillard [facility] TROPONIN I 2024-01-27 05:37:00 Leyla Meraz [facility] BASIC METABOLIC PANEL (NA, K , CL, CO2, GLUCOSE, BUN, CREATININE, CA) 2024-01-27 05:37:00 Leyla Meraz [facility] CBC WITHOUT DIFF 2024-01-27 05:37:00 Leyla Meraz [facility] GLYCOSYLATED HEMOGLOBIN (A1C) 2024-01-27 05:37:00 Elijah Dillard [facility] PROTHROMBIN TIME / INR 2024-01-27 05:37:00 Leyla Meraz [facility] ACTIVATED PARTIAL THRMPLAS DAVI 2024-01-02 7 05:37:00 Leyla Meraz [facility] TROPONIN I 2024-01-27 05:37:00 Leyla Meraz [facility] BASIC METABOLIC PANEL (NA, K , CL, CO2, GLUCOSE, BUN, CREATININE, CA) 2024-01-27 05:37:00 Leyla Meraz [facility] CBC WITHOUT DIFF 2024-01-27 05:37:00 Leyla Meraz [facility] GLYCOSYLATED HEMOGLOBIN (A1C) 2024-01-27 05:37:00 Elijah Dillard [facility] PROTHROMBIN TIME / INR 2024-01-27 05:37:00 Leyla Meraz [facility] ACTIVATED PARTIAL THRMPLAS DAVI 2024-01-02 7 05:37:00 Leyla Meraz [facility] CT STROKE PERFUSION W CONTRAST 2024-01-02 7 05:35:00 Elijah Dillard [facility] CT STROKE PERFUSION W CONTRAST 2024-01-02 7 05:35:00 Elijah Dillard [facility] CT STROKE PERFUSION W CONTRAST 2024-01-02 7 05:35:00 Elijah Dillard [facility] CT STROKE ANGIOGRAM HEAD 2024-01-27 05:34:14 Leyla Meraz [facility] CT STROKE ANGIOGRAM NECK 2024-01-27 05:34:14 Leyla Meraz [facility] CT STROKE ANGIOGRAM HEAD 2024-01-27 05:34:14 Leyla Meraz [facility] CT STROKE ANGIOGRAM NECK 2024-01-27 05:34:14 Leyla Meraz [facility] CT STROKE ANGIOGRAM HEAD 2024-01-27 05:34:14 Leyla Meraz [facility] CT STROKE ANGIOGRAM NECK 2024-01-27 05:34:14 Leyla Meraz [facility] CT STROKE HEAD WO CONTRAST 2024-01-27 05:25:21 Leyla Meraz [facility] CT STROKE HEAD WO CONTRAST 2024-01-27 05:25:21 Leyla Meraz [facility] CT STROKE HEAD WO CONTRAST 2024-01-27 05:25:21 Leyla Meraz [facility] POCT GLUCOSE(AGE >30DAYS) 2024-01-27 05:08:00 Leyla Meraz [facility] POCT GLUCOSE(AGE >30DAYS) 2024-01-27 05:08:00 Leyla Meraz [facility] POCT GLUCOSE(AGE >30DAYS) 2024-01-27 05:08:00 Leyla Meraz [facility] POCT GLUCOSE (AUTOMATED) 2024-01-27 05:07:00 Doctor Unassigned, [facility] POCT GLUCOSE (AUTOMATED) 2024-01-27 05:07:00 Doctor Unassigned, [facility] POCT GLUCOSE (AUTOMATED) 2024-01-27 05:07:00 Doctor Unassigned, [facility] CT ABDOMEN PELVIS W WO CONTRAST 19:43:25 Donte Schwarz [facility] HB CREATININE SERUM/BLOOD FO R IMAGING 2024-01-22 19:33:00 Christos Denny [facility] ED LACERATION REPAIR 2024-01-18 21:02:00 Joe Barrios [facility] ED LACERATION REPAIR 2024-01-18 21:02:00 Joe Barrios [facility] [address]169 - [place] XCAPSL CTRC RMVL INSJ IO LENS PROSTH W/O ECP 2023-11-29 17:17:00 Rajiv Rudolph [facility] [address]92 - [place] XCAPSL CTRC RMVL INSJ IO LENS PROSTH W/O ECP 2023-11-29 17:17:00 Rajiv Rudolph [facility] PHACOEMULSIFICATION OF CATAR ACT WITH INTRAOCULAR LENS IMPLANT 2023-10-25 18:12:00 Rajiv Rudolph [facility] UPPER ULTRASOUND 2023-07-12 16:28:00 [facility] 2023-07-12 16:28:00 Christos Denny [facility] EGD (ENDO) 2023-07-12 16:08:29 Kale Simmons [facility] EGD (ENDO) 2023-07-12 16:08:29 Kale Simmons [facility] CBC WITHOUT DIFF 2023-07-12 15:17:00 Pantera Springer [facility] CBC WITHOUT DIFF 2023-07-12 15:17:00 Pantera Springer [facility] ASSIGNMENT OF BENEFITS 2023-07-12 14:55:04 Doctor Unassigned, [facility] DISCLOSURE AND CONSENT, MEDI TETE AND SURGICAL PROCEDURES 2023-05-23 06:01:00 Doctor Unassigned, [facility] EXTERNAL PROVIDER RECORDS 2023-04-07 05:01:00 Doctor Unassigned, [facility] BASIC METABOLIC PANEL (NA, K , CL, CO2, GLUCOSE, BUN, CREATININE, CA) 2022-04-18 16:45:00 Marisela Bee [facility] MAGNESIUM 2022-04-17 10:07:00 Marisela Bee [facility] BASIC METABOLIC PANEL (NA, K , CL, CO2, GLUCOSE, BUN, CREATININE, CA) 2022-04-17 10:07:00 Marisela Bee [facility] EXTRA TUBE LAV 2022-04-17 10:07:00 Erasmo Tovar [facility] MAGNESIUM 2022-04-16 20:11:00 Marisela Bee [facility] BASIC METABOLIC PANEL (NA, K , CL, CO2, GLUCOSE, BUN, CREATININE, CA) 2022-04-16 20:11:00 [facility] (NA, K , CL, CO2, GLUCOSE, BUN, CREATININE, CA) 2022-04-15 21:55:00 [facility] 2022-04-15 10:43:00 Cristal [facility] BASIC METABOLIC PANEL (NA, K , CL, CO2, GLUCOSE, BUN, CREATININE, CA) 2022-04-15 10:43:00 Erich [facility] CBC WITH DIFF 2022-04-15 10:43:00 Erich [facility] POTASSIUM, URINE RANDOM 2022-04-15 06:22:00 Erasmo Tovar [facility] SODIUM, URINE RANDOM 2022-04-15 06:22:00 Erich [facility] BASIC METABOLIC PANEL (NA, K , CL, CO2, GLUCOSE, BUN, CREATININE, CA) 2022-04-14 23:55:00 [facility] 2022-04-14 11:01:00 Cristal [facility] CORTISOL STIMULATION 60 MIN 2022-04-14 11:01:00 Chun Cano [facility] BASIC METABOLIC PANEL (NA, K , CL, CO2, GLUCOSE, BUN, CREATININE, CA) 2022-04-14 11:01:00 Cristal [facility] CORTISOL STIMULATION 30 MIN 2022-04-14 10:31:00 Chun Cano [facility] PHOSPHORUS 2022-04-13 09:40:00 Cristal [facility] MAGNESIUM 2022-04-13 09:40:00 Cristal [facility] THYROID STIMULATING HORMONE 2022-04-13 09:40:00 Cristal [facility] BASIC METABOLIC PANEL (NA, K , CL, CO2, GLUCOSE, BUN, CREATININE, CA) 2022-04-13 09:40:00 Cristal [facility] CBC WITH DIFF 2022-04-13 09:40:00 Marisela Bee [facility] ADRENOCORTICOTROPIC HORMONE 2022-04-13 08:00:00 Chun Cano [facility] ALBUMIN 2022-04-13 08:00:00 [facility] (NA, K , CL, CO2, GLUCOSE, BUN, CREATININE, CA) 2022-04-13 08:00:00 [facility]ORTIS[facility] 0 MIN 2022-04-13 08:00:00 [facility] 1 VW 2022-04-12 21:18:00 Jerome Chun [facility] OSMOLALITY, SERUM OR PLASMA 2022-04-12 20:42:00 Gagan Pena [facility] BASIC METABOLIC PANEL (NA, K , CL, CO2, GLUCOSE, BUN, CREATININE, CA) 2022-04-12 20:42:00 Brittany Jung [facility] URINE CULTURE 2022-04-12 16:41:00 Cristal [facility] OSMOLALITY URINE 2022-04-12 16:35:00 Gagan Pena [facility] URINALYSIS 2022-04-12 16:35:00 Cristal [facility] CREATININE, URINE RANDOM 2022-04-12 16:35:00 Gagan Pena [facility] UREA NITROGEN, URINE RANDOM 2022-04-12 16:35:00 Gagan Pena [facility] SODIUM, URINE RANDOM 2022-04-12 16:35:00 Gagan Pena [facility] CHLORIDE, URINE RANDOM 2022-04-12 16:35:00 Gagan Pena [facility] XR KUB 2022-04-12 13:35:00 Marisela Bee [facility] PHOSPHORUS 2022-04-12 09:44:00 Cristal [facility] MAGNESIUM 2022-04-12 09:44:00 Cristal [facility] HEPATIC FUNCTION PANEL (8007 [id number]) (ALB,T.PRO,BILI T,BU/BC,ALT,AST,ALK PHOS) 2022-04-12 09:44:00 Cristal [facility] BASIC METABOLIC PANEL (NA, K , CL, CO2, GLUCOSE, BUN, CREATININE, CA) 2022-04-12 09:44:00 Cristal [facility] CBC WITH DIFF 2022-04-12 09:44:00 Cristal [facility] PHOSPHORUS 2022-04-11 08:18:00 Yanesaggie Dowd [facility] LIPASE 2022-04-11 08:18:00 Yanesaggie Dowd [facility] MAGNESIUM 2022-04-11 08:18:00 Yanes Mejia, [facility] HEPATIC FUNCTION PANEL ([id number]) (ALB,T.PRO,BILI T,BU/BC,ALT,AST,ALK PHOS) 2022-04-11 08:18:00 Yanesaggie Dowd [facility] BASIC METABOLIC PANEL (NA, K , CL, CO2, GLUCOSE, BUN, CREATININE, CA) 2022-04-11 08:18:00 Joaquín Dowd [facility] CBC WITH DIFF 2022-04-11 08:18:00 Yanes Mejia, [facility] PHOSPHORUS 2022-04-11 08:18:00 Yanes Dowd, [facility] LIPASE 2022-04-11 08:18:00 Yanes Dowd, [facility] MAGNESIUM 2022-04-11 08:18:00 Yanes Dowd, [facility] HEPATIC FUNCTION PANEL (8007 [id number]) (ALB,T.PRO,BILI T,BU/BC,ALT,AST,ALK PHOS) 2022-04-11 08:18:00 Joaquín Dowd [facility] BASIC METABOLIC PANEL (NA, K , CL, CO2, GLUCOSE, BUN, CREATININE, CA) 2022-04-11 08:18:00 Joaquín Dowd [facility] CBC WITH DIFF 2022-04-11 08:18:00 Joaquín Dowd [facility] LIPASE 2022-04-10 10:04:00 Brittany Jung [facility] MAGNESIUM 2022-04-10 10:04:00 Joaquín Dowd, [facility] HEPATIC FUNCTION PANEL (8007 6) (ALB,T.PRO,BILI T,BU/BC,ALT,AST,ALK PHOS) 2022-04-10 10:04:00 Joaquín Dowd [facility] BASIC METABOLIC PANEL (NA, K , CL, CO2, GLUCOSE, BUN, CREATININE, CA) 2022-04-10 10:04:00 Joaquín Dowd, [facility] CBC WITH DIFF 2022-04-10 10:04:00 Joaquín Dowd, [facility] LIPASE 2022-04-10 10:04:00 Brittany Jung [facility] MAGNESIUM 2022-04-10 10:04:00 Joaquín Dowd [facility] HEPATIC FUNCTION PANEL (8007 6) (ALB,T.PRO,BILI T,BU/BC,ALT,AST,ALK PHOS) 2022-04-10 10:04:00 Joaquín Dowd [facility] BASIC METABOLIC PANEL (NA, K , CL, CO2, GLUCOSE, BUN, CREATININE, CA) 2022-04-10 10:04:00 Joaquín Dowd, [facility] CBC WITH DIFF 2022-04-10 10:04:00 Joaquín Dowd [facility] PHOSPHORUS 2022-04-09 10:01:00 Yanesaggie Dowd, [facility] LIPASE 2022-04-09 10:01:00 Joaquín Dowd, [facility] MAGNESIUM 2022-04-09 10:01:00 Joaquín Dowd [facility] HEPATIC FUNCTION PANEL (8007 6) (ALB,T.PRO,BILI T,BU/BC,ALT,AST,ALK PHOS) 2022-04-09 10:01:00 Joaquín Dowd [facility] BASIC METABOLIC PANEL (NA, K , CL, CO2, GLUCOSE, BUN, CREATININE, CA) 2022-04-09 10:01:00 Joaquín Dowd [facility] CBC WITH DIFF 2022-04-09 10:01:00 Joaquín Dowd [facility] PHOSPHORUS 2022-04-09 10:01:00 Joaquín Dowd [facility] LIPASE 2022-04-09 10:01:00 Joaquín Dowd [facility] MAGNESIUM 2022-04-09 10:01:00 Joaquín Dowd, [facility] HEPATIC FUNCTION PANEL (8007 6) (ALB,T.PRO,BILI T,BU/BC,ALT,AST,ALK PHOS) 2022-04-09 10:01:00 Joaquín Dowd [facility] BASIC METABOLIC PANEL (NA, K , CL, CO2, GLUCOSE, BUN, CREATININE, CA) 2022-04-09 10:01:00 Joaquín Dowd [facility] CBC WITH DIFF 2022-04-09 10:01:00 Joaquín Dowd [facility] BASIC METABOLIC PANEL (NA, K , CL, CO2, GLUCOSE, BUN, CREATININE, CA) 2022-04-08 17:43:00 Joaquín Dowd, [facility] CBC WITH DIFF 2022-04-08 17:43:00 Joaquín Dowd [facility] BASIC METABOLIC PANEL (NA, K , CL, CO2, GLUCOSE, BUN, CREATININE, CA) 2022-04-08 17:43:00 Joaquín Dowd [facility] CBC WITH DIFF 2022-04-08 17:43:00 Joaquín Dowd [facility] ABG+COOX+NA+K+GLU+CA2+ 2022-04-08 15:58:[address] [facility] ABG+COOX+NA+K+GLU+CA2+ 2022-04-08 15:58:[address] [facility] ABG+COOX+NA+K+GLU+CA2+ 2022-04-08 15:13:[address] [facility] ABG+COOX+NA+K+GLU+CA2+ 2022-04-08 15:13:[address] [facility] SURGICAL PATHOLOGY EXAM 2022-04-08 14:44:[address] [facility] ARTERIAL LINE 2022-04-08 13:06:00 Chris Cortez [facility] CENTRAL NEURAXIAL BLOCK 2022-04-08 12:40:41 Raphael Aragon [facility] INTUBATION 2022-04-08 12:35:00 Chris Cortez [facility] EXCISION HEPATOPANCREATIC AMPULLA 2021-07 0-07 12:00:[address] [facility] EXCISION HEPATOPANCREATIC AMPULLA 2021-07 0-07 12:00:[address] [facility] HB ABO GROUPING 2022-04-08 11:21:00 Raul [facility] HB ABO GROUPING 2022-04-08 11:21:00 Raul [facility] HOSPITAL ADMISSION 2022-04-08 05:01:00 Doctor Unassigned, Bowlus [facility] MYOCARDIUM PERFUSION STRE SS AND REST 2022-03-29 16:37:00 [facility] PERFUSION STRE SS AND REST 2022-03-29 16:37:00 [facility] MYOCARDIUM PERFUSION STRE SS AND REST 2022-03-29 16:37:00 Lili Degroot [facility] NM MYOCARDIUM PERFUSION STRE SS AND REST 2022-03-29 16:37:00 Lili Degroot [facility] EXERCISE STRESS TEST 2022-03-29 15:57:34 Doctor Unassigned, Bowlus [facility] Plan of Care Planned Activity Planned Date Details Comments Source Medication 2024-03-02 02:00:00 ceFEPIme (MA XIPIME) 2,000 mg in NaCl 0.9% (NS) 100 mL MINI-BAG [code = ceFEPIme (MAXIPIME) 2,000 mg in NaCl 0.9% (NS) 100 mL MINI-BAG] [facility] Medication 2024-03-02 00:00:00 aspirin 81 m g chewable tablet [code = 998070] [facility] Encounters Start Date/Time End Date/Time Encounter Type Admission Type Attending [facility] Care Facility Care Department Encounter ID Source 2021-12-21 13:52:09 Outpatient R ABIODUN SHAH KUMAR [facility] [id number] [facility] 2024-02-24 16:59:00 2024-03-01 16:24:00 Inpatient X ELAN FONTANEZ JORDAN [facility] [id number] [facility] 2024-02-24 16:59:00 2024-03-01 16:24:00 Hospital Encounter Eric Tomas, Vince Rivas Jordan [facility] 1..840.114 350.1.13.10 4.2.7.2.686 [id number] [facility] 2024-02-28 00:00:00 2024-02-28 19:03:09 Letter (Out) Neurology Neurology [facility] MED[facility] OFFICE BUILDING 1..840.114 350.1.13.10 4.2.7.2.686 [id number] [facility] 2024-02-26 16:06:00 2024-02-26 18:30:00 Anesthesia Event Brednan Perez William Eiji Esquivel, Esteban [facility] 1.2.840.114 350.1.13.10 4.2.7.2.686 [id number] [facility] 2024-02-26 14:55:00 2024-02-26 18:20:00 Surgery Radha Lozano Yesi [facility] 1.2.840.114 350.1.13.10 4.2.7.2.686 [id number] [facility] 2024-02-02 22:42:00 2024-02-24 22:42:00 Inpatient 3 MARCELINO CARVER ENCPL CVA [id number] [facility] Pearbailee sherman 2024-02-20 08:15:00 2024-02-20 08:15:00 Outpatient R RDAHA LOZANO [facility] [id number] [facility] 2024-02-18 00:00:00 2024-02-18 12:04:13 Abstract Radha Lozano Yesi [facility] 1.2.840.114 350.1.13.10 4.2.7.2.686 [id number] [facility] 2024-01-27 00:06:00 2024-02-02 21:15:00 Inpatient X CASANDRA WASHINGTON MUHAMMAD [facility] [id number] [facility] 2024-01-27 00:06:00 2024-02-02 21:15:00 Hospital Encounter Leyla Meraz Muhammad U Bhardwaj, Anish Memon, Muhammad Zeeshan [facility] 1.2.840.114 350.1.13.10 4.2.7.2.686 [id number] [facility] 2024-01-28 12:35:00 2024-01-28 16:16:00 Anesthesia Event Emma Phoenix Javier [facility] 1.2.840.114 350.1.13.10 4.2.7.2.686 [id number] [facility] 2024-01-28 11:55:00 2024-01-28 15:26:00 Surgery LozanoRadha fuentes [facility] 1.2.840.114 350.1.13.10 4.2.7.2.686 [id number] [facility] 2024-01-27 02:36:00 2024-01-27 03:59:00 Anesthesia Event Julian Caicedo Alvio Javier 1.2.840.1 12426.1.1 3.104.2.7 .3.799860 .8 [id number] [facility] 2024-01-27 00:00:00 2024-01-27 00:00:00 Travel 1.2.840.1 70662.1.1 3.104.2.7 .3.894860 .8 1.2.840.114 350.1.13.10 4.2.7.3.698 084.8 [id number] [facility] 2024-01-22 14:09:42 2024-01-22 23:59:00 Outpatient R CHRISTOS DENNY [facility] [id number] [facility] 2024-01-22 13:40:00 2024-01-22 23:59:00 Hospital Encounter Christos Denny 1.2.840.1 76815.1.1 3.104.2.7 .3.021739 .8 [id number] [facility] 2024-01-22 00:00:00 2024-01-22 00:00:00 Travel 1.2.840.1 22200.1.1 3.104.2.7 .3.094156 .8 1.2.840.114 350.1.13.10 4.2.7.3.698 084.8 [id number] [facility] 2024-01-18 15:45:00 2024-01-18 16:33:00 Emergency X JOE BARRIOSDAVE SIMONEJO-ANN [facility] ERT [id number] [facility] 2024-01-18 15:45:00 2024-01-18 16:33:00 Emergency Joe Barrios D 1.2.840.1 88360.1.1 3.104.2.7 .3.362615 .8 [id number] [facility] 2024-01-18 00:00:00 2024-01-18 00:00:00 Travel 1.2.840.1 30375.1.1 3.104.2.7 .3.069467 .8 1.2.840.114 350.1.13.10 4.2.7.3.698 084.8 [id number] [facility] 2024-01-16 00:00:00 2024-01-16 00:00:00 Outpatient R CHRISTOS [facility] [id number] [facility] 2024-01-16 00:00:00 2024-01-16 00:00:00 Travel 1.2.840.1 22608.1.1 3.104.2.7 .3.001745 .8 1.2.840.114 350.1.13.10 4.2.7.3.698 084.8 [id number] [facility] 2024-01-11 00:00:00 2024-01-11 00:00:00 Outpatient R CHRISTOS [facility] [id number] [facility] 2024-01-02 12:30:00 2024-01-02 13:00:00 Office Visit Christos Denny 1.2.840.1 21343.1.1 3.104.2.7 .3.371830 .8 [id number] [facility] 2024-01-02 12:30:00 2024-01-02 12:30:00 Outpatient R CHRISTOS [facility] [id number] [facility] 2024-01-02 00:00:00 2024-01-02 00:00:00 Travel 1.2.840.1 91375.1.1 3.104.2.7 .3.445589 .8 1.2.840.114 350.1.13.10 4.2.7.3.698 084.8 [id number] [facility] 2023-12-14 00:00:00 2023-12-14 11:05:22 Telephone Christos Denny 1.2.840.1 98812.1.1 3.104.2.7 .3.004119 .8 [id number] [facility] 2023-11-29 10:36:00 2023-11-29 13:28:00 Outpatient R RAJIV RUDOLPH [facility] OPH [id number] [facility] 2023-11-29 10:36:00 2023-11-29 13:28:00 Hospital Encounter Rajiv Rudolph 1.2.840.1 45184.1.1 3.104.2.7 .3.513681 .8 [id number] [facility] 2023-11-29 12:22:00 2023-11-29 12:53:00 Anesthesia Event Melva Torrez Thuy 1.2.840.1 65475.1.1 3.104.2.7 .3.900370 .8 [id number] [facility] 2023-11-29 11:45:00 2023-11-29 12:18:00 Surgery Rajiv Rudolph 1.2.840.1 37000.1.1 3.104.2.7 .3.678206 .8 [id number] [facility] 2023-11-20 00:00:00 2023-11-20 00:00:00 Travel 1.2.840.1 82910.1.1 3.104.2.7 .3.323142 .8 1.2.840.114 350.1.13.10 4.2.7.3.698 084.8 [id number] [facility] 2023-10-25 11:31:00 2023-10-25 14:21:00 Outpatient R RAJIV RUDOLPH [facility] OPH [id number] [facility] 2023-10-25 11:31:00 2023-10-25 14:21:00 Hospital Encounter Rajiv Rudolph [facility] 1.2.840.114 350.1.13.10 4.2.7.2.686 [id number] [id number] [facility] 2023-10-25 11:45:00 2023-10-25 12:18:00 Surgery RowdyRajiv [facility] [place] 1.2.840.114 350.1.13.10 4.2.7.2.686 [id number] [facility] 2023-08-15 15:30:00 2023-08-15 16:00:00 Office Visit Christos Denny [facility] 1.2.840.114 350.1.13.10 4.2.7.2.686 [id number] [id number] [facility] 2023-08-15 15:30:00 2023-08-15 15:30:00 Outpatient R CHRISTOS DENNY [facility] [id number] [facility] 2023-07-12 08:55:00 2023-07-12 12:19:00 Outpatient R DENISHA [facility] GIE [id number] [facility] 2023-07-12 08:55:00 2023-07-12 12:19:00 [facility] 1.2.840.114 350.1.13.10 4.2.7.2.686 [id number] [facility] 2023-07-12 10:00:00 2023-07-12 11:17:00 Surgery DenishaCarmelitaChristos [facility] 1.2.840.114 350.1.13.10 4.2.7.2.686 [id number] [facility] 2023-07-12 00:00:00 2023-07-12 00:00:00 Orders Only Doctor Unassigned, Bowlus [facility] 1.2840.114 350.1.13.10 4.2.7.2.686 [id number] [facility] 2023-06-07 00:00:00 2023-06-07 00:00:00 Patient Secure Msg Doctor Unassigned, Bowlus [facility] 1.2840.114 350.1.13.10 4.2.7.2.686 [id number] [facility] 2023-06-06 00:00:00 2023-06-06 00:00:00 Telephone [facility] 1.2.840.114 350.1.13.10 4.2.7.2.686 [id number] 071 [id number] [facility] 2023-05-31 00:00:00 2023-05-31 00:00:00 Telephone [facility] 1.2840.114 350.1.13.10 4.2.7.2.686 [id number] 071 [id number] [facility] 2023-05-31 00:00:00 2023-05-31 00:00:00 Patient Secure Msg [facility] 1.2840.114 350.1.13.10 4.2.7.2.686 [id number] [id number] [facility] 2023-05-24 00:00:00 2023-05-24 00:00:00 Telephone Denisha [facility] 1.840.114 350.1.13.10 4.2.7.2.686 [id number] 071 [id number] [facility] 2023-05-23 15:30:00 2023-05-23 16:00:00 Office Visit Denisha [facility] 1.840.114 350.1.13.10 4.2.7.2.686 [id number] [id number] [facility] 2023-05-23 15:30:00 2023-05-23 15:30:00 [id number] [facility] 2023-05-23 15:30:00 2023-05-23 15:30:00 [facility] [id number] [facility] 2023-05-23 15:30:00 2023-05-23 15:30:00 [facility] [id number] [facility] 2023-05-23 15:30:00 2023-05-23 15:30:00 [facility] [id number] [facility] 2023-05-23 15:30:00 2023-05-23 15:30:00 [facility] [id number] [facility] 2023-05-23 00:00:00 2023-05-23 00:00:00 Orders Only Doctor Unassigned, Bowlus [facility] 1..840.114 350.1.13.10 4.2.7.2.686 [id number] [facility] 2023-05-02 00:00:00 2023-05-02 00:00:00 Outpatient GC_GCBZW_Ka diyala_S PRIV PRIV [id number] [facility] 2023-04-19 00:00:00 2023-04-19 00:00:00 [facility] 1.2.840.114 350.1.13.10 4.2.7.2.686 [id number] [id number] [facility] 2023-04-07 00:00:00 2023-04-07 00:00:00 Orders Only Doctor Unassigned, Bowlus [facility] 1.2.840.114 350.1.13.10 4.2.7.2.686 [id number] [facility] 2022-06-15 00:00:00 2022-06-15 00:00:00 Telephone Guy [facility] 1.2.840.114 350.1.13.10 4.2.7.2.686 [id number] [facility] 2022-06-15 00:00:00 2022-06-15 00:00:00 Patient Secure Msg [facility] 1.2840.114 350.1.13.10 4.2.7.2.686 [id number] [facility] 2022-05-02 11:15:00 2022-05-02 11:35:04 Outpatient R ERASMO T[facility]AR [facility] [id number] [facility] 2022-05-02 11:15:00 2022-05-02 11:35:04 Office Visit Guy [facility] 1.2.840.114 350.1.13.10 4.2.7.2.686 [id number] [facility] 2022-04-27 00:00:00 2022-04-27 00:00:00 Telephone Guy [facility] 1.2.840.114 350.1.13.10 4.2.7.2.686 [id number] [facility] 2022-04-26 00:00:00 2022-04-26 00:00:00 Telephone Guy [facility] 1.0.114 350.1.13.10 4.2.7.2.686 [id number] [facility] 2022-04-22 10:00:00 2022-04-22 10:30:00 Nurse Visit Nurse, [facility] 1.2840.114 350.1.13.10 4.2.7.2.686 [id number] [facility] 2022-04-22 10:00:00 2022-04-22 10:00:00 Outpatient R GRISEL [facility] [id number] [facility] 2022-04-20 09:45:00 2022-04-20 10:44:34 Outpatient R GRISEL [facility] [id number] [facility] 2022-04-20 09:45:00 2022-04-20 10:44:34 [facility] 1.2840.114 350.1.13.10 4.2.7.2.686 [id number] [facility] 2022-04-19 00:00:00 2022-04-19 00:00:00 Transition of Nyla Sandy 1.840.114 350.1.13.10 4.2.7.2.686 [id number] [facility] 2022-04-19 00:00:00 2022-04-19 00:00:00 Telephone Guy [facility] 1.2.114 350.1.13.10 4.2.7.2.686 [id number] [facility] 2022-04-08 05:19:00 2022-04-18 17:45:00 Inpatient R [facility]Y [facility] [id number] [facility] 2022-04-08 05:19:00 2022-04-18 17:45:00 Hospital Encounter Guy [facility] 1.2.840.114 350.1.13.10 4.2.7.2.686 [id number] [facility] 2022-04-08 07:19:00 2022-04-08 12:46:00 Anesthesia Event Gisella Boothe Ronald S [facility] 1.2.840.114 350.1.13.10 4.2.7.2.686 [id number] [facility] 2022-04-08 07:00:00 2022-04-08 11:30:00 Surgery [facility] 1.2.840.114 350.1.13.10 4.2.7.2.686 [id number] [facility] 2022-04-08 00:00:00 2022-04-08 00:00:00 Orders Only Doctor Unassigned, Bowlus [facility] 1.2.840.114 350.1.13.10 4.2.7.2.686 [id number] [facility] 2022-04-04 09:45:18 2022-04-04 23:59:00 [id number] 2022-04-04 10:00:00 2022-04-04 10:00:00 Outpatient DILIP [facility] [id number] [facility] 2022-03-30 00:00:00 2022-03-30 00:00:00 Patient Secure [facility]orgiana [facility] 1.2840.114 350.1.13.10 4.2.7.2.686 [id number] [facility] 2022-03-29 08:52:09 2022-03-29 23:59:00 Hospital Encounter Zane [facility] 1.2.840.114 350.1.13.10 4.2.7.2.686 [id number] [facility] 2022-03-29 08:51:52 2022-03-29 08:51:52 Hospital Encounter Zane, [facility] 1.2.840.114 350.1.13.10 4.2.7.2.686 [id number] [facility] 2022-03-29 08:51:23 2022-03-29 08:51:23 Hospital Encounter Zane [facility] 1.2.840.114 350.1.13.10 4.2.7.2.686 [id number] [facility] 2022-03-29 08:50:41 2022-03-29 08:50:41 Outpatient R ZANE [facility] [id number] [facility] 2022-03-29 08:50:41 2022-03-29 08:50:41 Hospital Encounter Zane [facility] 1.2.840.114 350.1.13.10 4.2.7.2.686 [id number] [facility] 2022-03-29 00:00:00 2022-03-29 00:00:00 Outpatient R ZANE [facility] [id number] [facility] 2022-03-27 00:00:00 2022-03-27 00:00:00 Patient Secure Msg Zane [facility] BUILDING 1.2.840.114 350.1.13.10 4.2.7.2.686 [id number] [facility] 2022-03-24 13:46:52 2022-03-24 23:59:00 Outpatient R DILIP [facility] [id number] [facility] 2022-03-24 14:00:00 2022-03-24 14:00:00 Outpatient R DILIP [facility] [id number] [facility] 2022-03-21 00:00:00 2022-03-21 00:00:00 Telephone [facility] 1..114 350.1.13.10 4.2.7.2.686 [id number] [facility] 2022-03-11 11:20:00 2022-03-11 11:48:40 Outpatient R DILIP [facility] [id number] [facility] 2022-03-11 11:20:00 2022-03-11 11:48:40 Office Visit Zane [facility] 1.0.114 350.1.13.10 4.2.7.2.686 [id number] [facility] 2022-03-11 11:20:00 2022-03-11 11:48:40 Office Visit Zane [facility] BUILDING 1.840.114 350.1.13.10 4.2.7.2.686 [id number] [facility] 2022-03-11 11:20:00 2022-03-11 11:48:40 Outpatient R ZANE [facility] [id number] [facility] 2022-03-04 00:00:00 2022-03-04 00:00:00 Patient Secure Msg Doctor Unassigned, Bowlus [facility] 1.0.114 350.1.13.10 4.2.7.2.686 [id number] [facility] 2022-03-03 09:55:00 2022-03-03 15:06:00 Emergency SARA [facility] ERT [id number] [facility] 2022-03-03 09:55:00 2022-03-03 15:06:00 Emergency SARA [facility] ERT [id number] [facility] 2022-03-03 09:55:00 2022-03-03 15:06:00 Emergency [facility] ERT [id number] [facility] 2022-03-03 09:55:00 2022-03-03 15:06:00 Emergency X SARA [facility]AL [facility] ERT [id number] [facility] 2022-03-03 09:55:00 2022-03-03 15:06:00 Emergency [facility] ERT [id number] [facility] 2022-03-03 09:55:00 2022-03-03 15:06:00 Emergency Andie [facility] 1.2.840.114 350.1.13.10 4.2.7.2.686 [id number] [facility] 2022-03-03 07:00:00 2022-03-03 09:53:00 Surgery [facility] 1.2.840.114 350.1.13.10 4.2.7.2.686 [id number] [facility] 2022-03-03 07:00:00 2022-03-03 09:53:00 Surgery [facility] 1.2.840.114 350.1.13.10 4.2.7.2.686 [id number] [facility] 2022-03-03 05:10:00 2022-03-03 09:50:00 [facility] [id number] [facility] 2022-03-03 05:10:00 2022-03-03 09:50:00 Hospital Encounter [facility] 1.2840.114 350.1.13.10 4.2.7.2.686 [id number] [facility] 2022-02-21 10:01:00 2022-02-21 16:09:00 Outpatient R CHRISTOS DENNY [facility] OLGA [id number] [facility] 2022-02-21 10:01:00 2022-02-21 16:09:00 [facility] 1.20.114 350.1.13.10 4.2.7.2.686 [id number] [facility] 2022-02-21 12:37:00 2022-02-21 14:37:00 Surgery Christos Denny [facility] 1.840.114 350.1.13.10 4.2.7.2.686 [id number] [facility] 2022-02-21 00:00:00 2022-02-21 00:00:00 Orders Only Doctor Unassigned, Bowlus [facility] 1.840.114 350.1.13.10 4.2.7.2.686 [id number] [facility] 2022-01-13 00:00:00 2022-01-13 00:00:00 Patient Secure Msg Frankiepatricia [facility] 1..114 350.1.13.10 4.2.7.2.686 [id number] [facility] 2021-12-29 00:00:00 2021-12-29 00:00:00 Case Management Arlette Orozco [facility] 1..114 350.1.13.10 4.2.7.2.686 [id number] [facility] 2021-12-29 00:00:00 2021-12-29 00:00:00 Telephone Erasmo Tovar [facility] 1..114 350.1.13.10 4.2.7.2.686 [id number] [facility] 2021-12-29 00:00:00 2021-12-29 00:00:00 Telephone Denisha [facility] 1.0.114 350.1.13.10 4.2.7.2.686 [id number] [facility] 2021-12-28 15:00:00 2021-12-28 15:30:00 [facility] 350.1.13.10 4.2.7.2.686 [id number] [facility] 2021-12-28 15:00:00 2021-12-28 15:00:00 [id number] 2021-12-28 15:00:00 2021-12-28 15:00:00 Outpatient R DENISHA [facility] [id number] [facility] 2021-12-28 15:00:00 2021-12-28 15:00:00 Outpatient R DENISHA [facility] [id number] [facility] 2021-12-28 14:15:00 2021-12-28 14:30:00 Laboratory Only Only, [facility] Test Chris Zee [facility] 1.114 350.1.13.10 4.2.7.2.686 [id number] [facility] 2021-12-28 00:00:00 2021-12-28 00:00:00 Patient Secure Msg Doctor Unassigned, Bowlus [facility] 1..114 350.1.13.10 4.2.7.2.686 [id number] [id number] [facility] 2021-12-28 00:00:00 2021-12-28 00:00:00 Orders Only Doctor Unassigned, Bowlus [facility] 1.2.114 350.1.13.10 4.2.7.2.686 [id number] 009 [id number] [facility] 2021-12-23 12:30:00 2021-12-23 12:30:00 Outpatient R [facility] [id number] [facility] 2021-12-23 12:30:00 2021-12-23 12:30:00 Outpatient R [facility] [id number] [facility] 2021-12-21 00:00:00 2021-12-21 00:00:00 Patient Secure Msg Doctor Unassigned, Bowlus [facility] 1.114 350.1.13.10 4.2.7.2.686 [id number] 020 [id number] [facility] 2021-12-21 00:00:00 2021-12-21 00:00:00 Case Management Arlette Orozco [facility] 1..114 350.1.13.10 4.2.7.2.686 [id number] [facility] 2021-12-20 14:15:00 2021-12-20 14:30:00 Office Visit Erasmo Tovar [facility] 1..114 350.1.13.10 4.2.7.2.686 [id number] [facility] 2021-12-20 14:15:00 2021-12-20 14:30:00 Office Visit Guy [facility] 1..114 350.1.13.10 4.2.7.2.686 [id number] [facility] 2021-12-20 14:15:00 2021-12-20 14:15:00 Outpatient R ERASMO TOVAR [facility] [id number] [facility] 2021-12-20 14:15:00 2021-12-20 14:15:00 Outpatient Risa GUYERASMO [facility] [id number] [facility] 2021-12-20 00:00:00 2021-12-20 00:00:00 Orders Only Doctor Unassigned, Bowlus [facility] 1.840.114 350.1.13.10 4.2.7.2.686 [id number] [id number] [facility] 2021-12-10 00:00:00 2021-12-10 00:00:00 [facility] 1.0.114 350.1.13.10 4.2.7.2.686 [id number] [id number] [facility] 2021-12-10 00:00:00 2021-12-10 00:00:00 Patient Secure Msg Janes [facility] 1.840.114 350.1.13.10 4.2.7.2.686 [id number] 072 [id number] [facility] 2021-12-08 00:00:00 2021-12-08 00:00:00 Multidisci plinary Conference Alyssa [facility] 1.840.114 350.1.13.10 4.2.7.2.686 [id number] [facility] 2021-12-01 00:00:00 2021-12-01 00:00:00 Telephone Sha Mitchell [facility] 1.840.114 350.1.13.10 4.2.7.2.686 [id number] [facility] 2021-11-25 00:00:00 2021-11-25 00:00:00 [facility] 1.840.114 350.1.13.10 4.2.7.2.686 [id number] [id number] [facility] 2021-11-23 00:00:00 2021-11-23 00:00:00 Transition of Care Emily Delgado 1.2.840.114 350.1.13.10 4.2.7.2.686 [id number] [facility] 2021-11-18 07:42:00 2021-11-22 18:00:00 Inpatient U SUSIE JOHNATHAN [facility] [id number] [facility] 2021-11-18 07:42:00 2021-11-22 18:00:00 Inpatient U SUSIE JOHNATHAN [facility] [id number] [facility] 2021-11-18 07:42:00 2021-11-22 18:00:00 [facility].2.[facility].114 350.1.13.10 4.2.7.2.686 [id number] [id number] [facility] 2021-11-19 12:46:00 2021-11-19 14:25:00 Surgery Abiodun Shah [facility] 1.2.840.114 350.1.13.10 4.2.7.2.686 [id number] 020 [id number] [facility] 2021-11-19 11:29:00 2021-11-19 12:31:00 Anesthesia Event Pantera Springer 1.2.840.1 47156.1.1 3.104.2.7 .3.630533 .8 [id number] [facility] 2021-11-19 00:00:00 2021-11-19 00:00:00 Travel 1.2.840.1 33012.1.1 3.104.2.7 .3.022378 .8 1.2.840.114 350.1.13.10 4.2.7.3.698 [id number] [facility] 2021-11-18 00:00:00 2021-11-18 00:00:00 Travel 1.2.840.1 76813.1.1 3.104.2.7 .3.238204 .8 1.2.840.114 350.1.13.10 4.2.7.3.698 084.8 [id number] [facility] 2020-07-31 00:00:00 2020-07-31 00:00:00 Orders Only Doctor Unassigned, Bowlus [facility] 1.2.840.114 350.1.13.10 4.2.7.2.686 [id number] 009 [id number] [facility] Results Test Description Test Time Test Comments Results Result Co mments Source [facility] 15:06:31* Test Item Value Reference Range Interpretation Comme nts MAGNESIUM (test code = 9440159311) 1.8 mg/dL 1.7-2.4 Lab Interpretation (test cod e = 79156-1) Normal [facility] with Etll1687-01-24 15:02:32* Test Item Value Reference Range Interpretation Comme nts WBC (test code = 6690-2) 7.92 4.30-11.10 RBC (test code = 789-8) 2.92 3.93-5.25 L HGB (test code = 718-7) 8.7 g/dL 11.6-15.0 L HCT (test code = 4544-3) 26.3 % 35.7-45.2 L MCV (test code = 787-2) 90.1 fL 80.6-95.5 MCH (test code = 785-6) 29.8 pg 25.9-32.8 MCHC (test code = 786-4) 33.1 g/dL 31.6-35.1 RDW-SD (test code = 68137-2) 61.9 fL 39.0-49.9 H RDW-CV (test code = 788-0) 19.0 % 12.0-15.5 H PLT (test code = 777-3) 213 166-358 MPV (test code = 12473-7) 8.4 fL 9.5-12.9 L NRBC/100 WBC (test code = 4810085028) 0.0 0.0-10.0 NRBC x10^3 (test code = 7432110806) See_Comment [Automated Patient Engagement Systemsa ge] The system which generated this result transmitted reference range: 10*3/?L. The reference range was not used to interpret this result as normal/abnormal. GRAN MAT (NEUT) % (test code = 770-8) 61.5 % IMM GRAN % (test code = 5788218711) 0.40 % LYMPH % (test code = 736-9) 22.7 % MONO % (test code = 5905-5) 7.6 % EOS % (test code = 713-8) 7.3 % BASO % (test code = 706-2) 0.5 % GRAN MAT x10^3(ANC) (test code = 1018253926) 4.87 10*3/uL 1.88-7.09 IMM GRAN x10^3 (test code = 2048851850) 0.03 10*3/uL 0.00-0.06 LYMPH x10^3 (test code = 731-0) 1.80 10*3/uL 1.32-3.29 MONO x10^3 (test code = 742-7) 0.60 10*3/uL 0.33-0.92 EOS x10^3 (test code = 711-2) 0.58 10*3/uL 0.03-0.39 H BASO x10^3 (test code = 704-7) 0.04 10*3/uL 0.01-0.07 Lab Interpretation (test code = 68232-1) Abnormal [facility] W CONTRAST 2024-02-27 13:52:55EXAMINATION: CT ANGIOGRAM LOWER EXTREMITY RIGHT W CONTRAST HISTORY: Upper leg trauma Continual bleed of the post op R jesus arthoplastyof the femur. Looking for active bleed. COMPARISON:None. TECHNIQUE:CT angiography of the right lower extremity the level of the knee wasperformed after administration of IV contrast. MIP reconstructed imageswere performed and reviewed. FINDINGS: VASCULAR:Mild calcified and noncalcified plaque in the right common iliac, internaliliac, external iliac arteries are patent. The right common femoral artery is patent, no significant stenosis. Thereis moderate calcified and noncalcified atherosclerotic plaque in thesuperficial femoral artery resulting in moderate to severe stenosis.Calcified plaque and mild stenosis of popliteal artery. The three-vesselrunoff are patent. Multifocal calcified plaque throughout three-vesselrunoff without flow-limiting stenosis. Thedorsalis pedis and plantararteries are patent. 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 Soft Tissues:4.2 x 3.3 cm hypodense collection with density more than simple fluid, inthe soft tissues of the right gluteus adjacent to the postsurgical site. Nocontrast extravasation is visualized. Others: There is a 4.4 x 6.3 cm right-sided pelvic mass, previously 4.4 x5.2 cm. No solid component. This was 3x 3.8 cm on 11/18/2021. There isanother smaller component posteriorly, measuring 1.6 x 2.4 cm.[facility]TREMITY RIGHT W [id number] 13:52:55EXAMINATION: CT ANGIOGRAM LOWER EXTREMITY RIGHT W CONTRAST HISTORY: Upper leg trauma Continual bleed of the post op R jesus arthoplastyof the femur. Looking for active bleed. COMPARISON:None. TECHNIQUE:CT angiography of the right lower extremity the level of the knee wasperformed after administration of IV contrast. MIP reconstructed imageswere performed and reviewed. FINDINGS: VASCULAR:Mild calcified and noncalcified plaque in the right common iliac, internaliliac, external iliac arteries are patent. The right common femoral artery is patent, no significant stenosis. Thereis moderate calcified and noncalcified atherosclerotic plaque in thesuperficial femoral artery resulting in moderate to severe stenosis.Calcified plaque and mild stenosis of popliteal artery. The three-vesselrunoff are patent. Multifocal calcified plaque throughout three-vesselrunoff without flow-limiting stenosis. Thedorsalis pedis and plantararteries are patent. 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 Soft Tissues:4.2 x 3.3 cm hypodense collection with density more than simple fluid, inthe soft tissues of the right gluteus adjacent to the postsurgical site. Nocontrast extravasation is visualized. Others: There is a 4.4 x 6.3 cm right-sided pelvic mass, previously 4.4 x5.2 cm. No solid component. This was 3x 3.8 cm on 11/18/2021. There isanother smaller component posteriorly, measuring 1.6 x 2.4 cm.[facility] P[facility] RBC (in units), 2 Nfzij9618-99-57 23:46:57* Test Item Value Reference Range Interpretation Comme nts Cross Match Result (test code = 4409) Compatible ISBT Blood Type Code (test code = 568471) 5100 Unit Blood Type (test code = 4410) O Pos Unit Number (test code = 4411) [id number] Blood Expiration Date & Time (test code = 079161) 006602476927 Status Information (test code = 4412) Issued Product Identification (test code = 4413) Red Blood Cells Product Code (test code = 4414) [id number] Performed at [facility] Blood [address] Free: [phone] No. [id number] [facility] Packed RBC (in units), 2 Units 2024-02-26 23:46:57* Test Item Value Reference Range Interpretation Comme nts Cross Match Result (test code = 4409) Compatible ISBT Blood Type Code (test code = 130743) 5100 Unit Blood Type (test code = 4410) O Pos Unit Number (test code = 4411) [id number] Blood Expiration Date & Time (test code = 550358) 440529968160 Status Information (test code = 4412) Issued Product Identification (test code = 4413) Red Blood Cells Product Code (test code = 4414) [id number] Performed at [facility] Blood [address] Free: [phone] No. [id number] [facility] HospitalIntubation2024-08-26 21:29:00Sherry Powell MD ? ? 02/26/2024 ?4:52 PMIntubationDate/Time: 02/26/2024 4:29 PMUrgency: elective Airway not difficult General Information and Staff Patient location during procedure: ORPerformed by: Sherry Powell MDAuthorized by: Andrew Pizarro MD ? Indications andPatient ConditionIndications for airway management: anesthesiaSpontaneous ventilation: presentSedation level: deepPreoxygenated: yesPatient position: sniffingMILS maintained throughoutMask difficultyassessment: 1 - vent by mask Final Airway DetailsFinal airway type: endotracheal airway Successful airway: ETTCuffed: yes Successful intubation technique: direct laryngoscopyFacilitating devices/metho ds: intubating styletEndotracheal tube insertion site: oralBlade: MacintoshBlade size: #3ETT size (mm): 7.0Cormack-Lehane Classification: grade I - full view of glottisPlacement verified by: chest auscultation and capnometry Measured from: lipsETT to lips (cm): 21Number of attempts at approach: 1Ventilation between attempts: noneNumber of other approaches attempted: 0 Additional CommentsGlottic opening visualized atraumatically. Lips, teeth, tongue, and gums remain in same condition as prior tointubation. Smooth, atraumatic, dentition and lips unchanged from pre-op.[facility] without Diff 2024-02-25 17:55:33* Test Item Value Reference Range Interpretation Comme nts WBC (test code = 6690-2) 9.42 4.30-11.10 RBC (test code = 789-8) 2.60 3.93-5.25 L HGB (test code = 718-7) 7.9 g/dL 11.6-15.0 L HCT (test code = 4544-3) 23.7 % 35.7-45.2 L MCH (test code = 785-6) 30.4 pg 25.9-32.8 MCV (test code = 787-2) 91.2 fL 80.6-95.5 MCHC (test code = 786-4) 33.3 g/dL 31.6-35.1 PLT (test code = 777-3) 225 166-358 MPV (test code = 18906-3) 8.6 fL 9.5-12.9 L RDW-CV (test code = 788-0) 17.7 % 12.0-15.5 H RDW-SD (test code = 41123-4) 58.8 fL 39.0-49.9 H NRBC x10^3 (test code = 2504568718) See_Comment [Automated Patient Engagement Systemsa [facility]] The system which generated this result transmitted reference range: 10*3/?L. The reference range was not used to interpret this result as normal/abnormal. NRBC/100 WBC (test code = 1379586122) 0.0 0.0-10.0 IPF % (test code = 3434533852) Lab Interpretation (test code = 14381-2) Abnormal [facility] without Agcc4801-45-81 17:55:33* Test Item Value Reference Range Interpretation Comme nts WBC (test code = 6690-2) 9.42 4.30-11.10 RBC (test code = 789-8) 2.60 3.93-5.25 L HGB (test code = 718-7) 7.9 g/dL 11.6-15.0 L HCT (test code = 4544-3) 23.7 % 35.7-45.2 L MCH (test code = 785-6) 30.4 pg 25.9-32.8 MCV (test code = 787-2) 91.2 fL 80.6-95.5 MCHC (test code = 786-4) 33.3 g/dL 31.6-35.1 PLT (test code = 777-3) 225 166-358 MPV (test code = 97653-3) 8.6 fL 9.5-12.9 L RDW-CV (test code = 788-0) 17.7 % 12.0-15.5 H RDW-SD (test code = 58354-1) 58.8 fL 39.0-49.9 H NRBC x10^3 (test code = 7835701970) See_Comment [Automated Patient Engagement Systemsa [facility]] The system which generated this result transmitted reference range: 10*3/?L. The reference range was not used to interpret this result as normal/abnormal. NRBC/100 WBC (test code = 0683075757) 0.0 0.0-10.0 IPF % (test code = 9739458247) Lab Interpretation (test code = 63999-7) Abnormal [facility] Eczqm5664-29-15 16:36:09* Test Item Value Reference Range Interpretation Comme nts IRON (test code = 0764044110) 61 ug/dL 50-160 TIBC (test code = 4207083286) 234 ug/dL 250-410 L % FE SAT (test code = 0034213413) 26 % 20-50 Lab Interpretation (test cod e = 64061-0) Abnormal [facility] Nvbhf8923-68-52 16:36:09* Test Item Value Reference Range Interpretation Comme nts IRON (test code = 8000228234) 61 ug/dL 50-160 TIBC (test code = 7909812811) 234 ug/dL 250-410 L % FE SAT (test code = 9915572679) 26 % 20-50 Lab Interpretation (test cod e = 29234-4) Abnormal [facility] QKKWRCEF6762-26-19 14:07:12CT HEAD WO CONTRAST HISTORY: Headache, new or worsening (Age >= 50y) Headache, post stroke 1 month ago, 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 Sagittal and coronalreformats were obtained. FINDINGS: The ventricles and cerebral sulci are unchanged in caliber andconfiguration. No hydrocephalus, midline shift or pathological extra-axialfluid collection is present. The basal cisterns are unremarkable. There is no acute intracranial hemorrhage or significant mass effect.Global volume loss with commensurate ventricular caliber. Evolving subacuteinfarct at the left parietotemporal junction, unchanged. The culver- whitematter differentiation is otherwise preserved. The mastoid air cells and paranasal air sinusesare clear. 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 Sagittal and coronalreformats were obtained. FINDINGS: The ventricles and cerebral sulci are unchanged in caliber andconfiguration. No hydrocephalus, midline shift orpathological extra-axialfluid collection is present. The basal cisterns are unremarkable. There is no acute intracranial hemorrhage or significant mass effect.Global volume loss with commensurate ventricular caliber. Evolving subacuteinfarct at the left parietotemporal junction, unchanged. The culver-whitematter differentiation is otherwise preserved. The mastoid air cells and paranasal air sinusesare clear. The calvariumand central skull base are unremarkable.[facility] Packed RBC (in units), 1 Deaqe7840-95-99 14:03:01* Test Item Value Reference Range Interpretation Comme nts Cross Match Result (test code = 4409) Compatible ISBT Blood Type Code (test code = 296015) 5100 Unit Blood Type (test code = 4410) O Pos Unit Number (test code = 4411) [id number] Blood Expiration Date & Time (test code = 224778) 476190021534 Status Information (test code = 4412) Issued Product Identification (test code = 4413) Red Blood Cells Product Code (test code = 4414) [id number] Performed at [facility] Blood [address] [address]Yokt Free: [phone] No. [id number] [facility] Packed RBC (in units), 1 Units 2024-02-25 14:03:01* Test Item Value Reference Range Interpretation Comme nts Cross Match Result (test code = 4409) Compatible ISBT Blood Type Code (test code = 638180) 5100 Unit Blood Type (test code = 4410) O Pos Unit Number (test code = 4411) [id number] Blood Expiration Date & Time (test code = 003364) 034813867389 Status Information (test code = 4412) Issued Product Identification (test code = 4413) Red Blood Cells Product Code (test code = 4414) [id number] Performed at [facility] Blood [address] [address]q Free: [phone] No. [id number] [facility] HospitalFerritin Noeef0872-44-48 05:45:44* Test Item Value Reference Range Interpretation Comme nts FERRITIN (test code = 2718679449) 59.3 ng/mL 11.0-264.0 JUSTIN (test code = JUSTIN) Biotin has been reported to cause a negative bias, interpret results relative to patient's use of biotin. Lab Interpretation (test code = 03416-2) Normal [facility] HospitalFerrit[facility] Bhyaq1759-89-02 05:45:44* Test Item Value Reference Range Interpretation Comme nts FERRITIN (test code = 4622776645) 59.3 ng/mL 11.0-264.0 JUSTIN (test code = JUSTIN) Biotin has been reported to cause a negative bias, interpret results relative to patient's use of biotin. Lab Interpretation (test code = 42459-1) Normal [facility] HospitalOsmolality, Serum or Cttlxd6615-91-82 03:21:22 * Test Item Value Reference Range Interpretation Comme nts OSMOLALITY (test code = 2692-2) 275 278-305 L Lab Interpretation (test cod e = 34175-5) Abnormal [facility] HospitalOsmolality, Serum or Yfxjft7416-21-21 03:21:22 * Test Item Value Reference Range Interpretation Comme nts OSMOLALITY (test code = 2692-2) 275 278-305 L Lab Interpretation (test cod e = 87207-8) Abnormal [facility] HIPS 2 VW [id number] 00:05:34EXAM: XR FEMUR 2 VW RIGHT, EXAM: XR HIPS 2 VW RIGHT HISTORY: post op bleeding COMPARISON: January 2024FINDINGS: Imaging of the femur and hip demonstrate interval right hiphemiarthroplasty change. Component alignment is unremarkable. There are noperiprosthetic fractures. Postoperative soft tissue swelling and gas areseen with skin jacky in place over the lateral hip. Severe osteopenia ispresent. Ar terial calcifications are present. Marked osteopenia is present.[facility] FEMUR 2 VW [id number] 00:05:34EXAM: XR FEMUR 2 VW RIGHT, EXAM: XR HIPS 2 VW RIGHT HISTORY: post op bleeding COMPARISON: January 2024 FINDINGS: Imaging of the femur and hip demonstrate interval right hiphemiarthroplasty change. Component alignment is unremarkable. There are noperiprosthetic fractures. Postoperative soft tissue swelling and gas areseen with skin jacky in place over the lateral hip. Severe osteopenia ispresent. Ar terial calcifications are present. Marked osteopenia is present.[facility] HIPS 2 VW [id number] 00:05:34EXAM: XR FEMUR 2 VW RIGHT, EXAM: XR HIPS 2 VW RIGHT HISTORY: post op bleeding COMPARISON: January 2024 FINDINGS: Imaging of the femur and hip demonstrate interval right hiphemiarthroplasty change. Component alignment is unremarkable. There are noperiprosthetic fractures. Postoperative soft tissue swelling and gas areseen with skin jacky in place over the lateral hip. Severe osteopenia ispresent. Ar terial calcifications are present. Marked osteopenia is present.[facility] FEMUR 2 VW [id number] 00:05:34EXAM: XR FEMUR 2 VW RIGHT, EXAM: XR HIPS 2 VW RIGHT HISTORY: post op bleeding COMPARISON: January 2024 FINDINGS: Imaging of the femur and hip demonstrate interval right hiphemiarthroplasty change. Component alignment is unremarkable. There are noperiprosthetic fractures. Postoperative soft tissue swelling and gas areseen with skin jacky in place over the lateral hip. Severe osteopenia ispresent. Ar terial calcifications are present. Marked osteopenia is present.[facility] INVESTIGATION [id number] 23:30:29* Test Item Value Reference Range Interpretation Comme nts ABO & RH (test code = 20) O Positive Weak reverse, us ed 4 drops of plasma and incubated 15 minutes at RT to resolve discrepancyPerformed at [facility] Laboratory Services - [facility] Blood [address] [address]Bmlt Free: [phone] No. [id number] [facility] INVESTIGATION [id number] 23:30:29* Test Item Value Reference Range Interpretation Comme nts ABO & RH (test code = 20) O Positive Weak reverse, us ed 4 drops of plasma and incubated 15 minutes at RT to resolve discrepancyPerformed at [facility] Laboratory Services - [facility] Blood [address] [address]Atqv Free: [phone] No. [id number] [facility]. METABOLIC PANEL (10740)2024-02-24 22:49:41* Test Item Value Reference Range Interpretation Comme nts NA (test code = 5287374694) 124 mmol/L 135-145 L K (test code = 9838801699) 3.0 mmol/L 3.5-5.0 L CL (test code = 4336017468) 94 mmol/L 98-108 L CO2 TOTAL (test code = 8043952617) 26 mmol/L 23-31 AGAP (test code = 1566502512) 4 2-16 BUN (test code = 4508032403) 17 mg/dL 7-23 GLUCOSE (test code = 3743754006) 109 mg/dL 70-110 CREATININE (test code = 2160-0) 0.78 mg/dL 0.50-1.04 TOTAL BILI (test code = 7812853685) 0.4 mg/dL 0.1-1.1 CALCIUM (test code = 2956516239) 8.2 mg/dL 8.6-10.6 L T PROTEIN (test code = 7229041072) 4.9 g/dL 6.3-8.2 L ALBUMIN (test code = 9992150909) 2.6 g/dL 3.5-5.0 L ALK PHOS (test code = 2939596811) 81 U/L 34-122 ALTv (test code = 1742-6) 13 U/L 5-35 AST(SGOT) (test code = 8576255156) 20 U/L 13-40 eGFR (test code = 50739-7) 78.3 mL/min/1.73m2 CKD-EPI eGFR (2020). Assuming creatinine has been stable day-to-day for at least three months, the eGFR indicates Category G2 (60 - 89 mL/min/1.73 m2) Lab Interpretation (test code = 80680-3) Abnormal [facility]. METABOLIC PANEL (96905)2024-02-24 22:49:41* Test Item Value Reference Range Interpretation Comme nts NA (test code = 4369291029) 124 mmol/L 135-145 L K (test code = 8846341852) 3.0 mmol/L 3.5-5.0 L CL (test code = 1873691011) 94 mmol/L 98-108 L CO2 TOTAL (test code = 9556916108) 26 mmol/L 23-31 AGAP (test code = 5626125105) 4 2-16 BUN (test code = 9599757487) 17 mg/dL 7-23 GLUCOSE (test code = 1123194384) 109 mg/dL 70-110 CREATININE (test code = 2160-0) 0.78 mg/dL 0.50-1.04 TOTAL BILI (test code = 4242552914) 0.4 mg/dL 0.1-1.1 CALCIUM (test code = 8534179273) 8.2 mg/dL 8.6-10.6 L T PROTEIN (test code = 8321303106) 4.9 g/dL 6.3-8.2 L ALBUMIN (test code = 7761961414) 2.6 g/dL 3.5-5.0 L ALK PHOS (test code = 1577068041) 81 U/L 34-122 ALTv (test code = 1742-6) 13 U/L 5-35 AST(SGOT) (test code = 8071535222) 20 U/L 13-40 eGFR (test code = 03931-1) 78.3 mL/min/1.73m2 CKD-EPI eGFR (2020). Assuming creatinine has been stable day-to-day for at least three months, the eGFR indicates Category G2 (60 - 89 mL/min/1.73 m2) Lab Interpretation (test code = 81184-5) Abnormal [facility] HospitalPROTHROMBIN TIME / [id number] 22:39:43* Test Item Value Reference Range Interpretation Comme nts PROTIME PATIENT (test code = 5964-2) 15.9 10.1-12.6 H INR (test code = 6301-6) 1.4 Normal INR <1.1; Warfarin Therapeutic range 2.0 to 3.0 or 2.5 to 3.5, depending upon the indications. Lab Interpretation (test code = 74680-4) [facility] [id number] 22:39:43* Test Item Value Reference Range Interpretation Comme nts PROTIME PATIENT (test code = 5964-2) 15.9 10.1-12.6 H INR (test code = 6301-6) 1.4 Normal INR <1.1; Warfarin Therapeutic range 2.0 to 3.0 or 2.5 to 3.5, depending upon the indications. Lab Interpretation (test code = 72318-3) Abnormal [facility] WITH [id number] 22:37:22* Test Item Value Reference Range Interpretation Comme nts WBC (test code = 6690-2) 9.79 4.30-11.10 RBC (test code = 789-8) 2.59 3.93-5.25 L HGB (test code = 718-7) 7.8 g/dL 11.6-15.0 L HCT (test code = 4544-3) 23.4 % 35.7-45.2 L MCV (test code = 787-2) 90.3 fL 80.6-95.5 MCH (test code = 785-6) 30.1 pg 25.9-32.8 MCHC (test code = 786-4) 33.3 g/dL 31.6-35.1 RDW-SD (test code = 52111-4) 61.0 fL 39.0-49.9 H RDW-CV (test code = 788-0) 18.7 % 12.0-15.5 H PLT (test code = 777-3) 280 166-358 MPV (test code = 79266-1) 7.9 fL 9.5-12.9 L NRBC/100 WBC (test code = 6290076777) 0.0 0.0-10.0 NRBC x10^3 (test code = 9652498133) See_Comment [Automated messa ge] The system which generated this result transmitted reference range: 10*3/?L. The reference range was not used to interpret this result as normal/abnormal. GRAN MAT (NEUT) % (test code = 770-8) 70.8 % IMM GRAN % (test code = 6246933586) 0.80 % LYMPH % (test code = 736-9) 18.4 % MONO % (test code = 5905-5) 7.6 % EOS % (test code = 713-8) 1.8 % BASO % (test code = 706-2) 0.6 % GRAN MAT x10^3(ANC) (test code = 8826841657) 6.93 10*3/uL 1.88-7.09 IMM GRAN x10^3 (test code = 3227373046) 0.08 10*3/uL 0.00-0.06 H LYMPH x10^3 (test code = 731-0) 1.80 10*3/uL 1.32-3.29 MONO x10^3 (test code = 742-7) 0.74 10*3/uL 0.33-0.92 EOS x10^3 (test code = 711-2) 0.18 10*3/uL 0.03-0.39 BASO x10^3 (test code = 704-7) 0.06 10*3/uL 0.01-0.07 Lab Interpretation (test code = 58860-9) Abnormal [facility] WITH [id number] 22:37:22* Test Item Value Reference Range Interpretation Comme nts WBC (test code = 6690-2) 9.79 4.30-11.10 RBC (test code = 789-8) 2.59 3.93-5.25 L HGB (test code = 718-7) 7.8 g/dL 11.6-15.0 L HCT (test code = 4544-3) 23.4 % 35.7-45.2 L MCV (test code = 787-2) 90.3 fL 80.6-95.5 MCH (test code = 785-6) 30.1 pg 25.9-32.8 MCHC (test code = 786-4) 33.3 g/dL 31.6-35.1 RDW-SD (test code = 63911-8) 61.0 fL 39.0-49.9 H RDW-CV (test code = 788-0) 18.7 % 12.0-15.5 H PLT (test code = 777-3) 280 166-358 MPV (test code = 49442-0) 7.9 fL 9.5-12.9 L NRBC/100 WBC (test code = 4393090379) 0.0 0.0-10.0 NRBC x10^3 (test code = 1870008463) See_Comment [Automated messa ge] The system which generated this result transmitted reference range: 10*3/?L. The reference range was not used to interpret this result as normal/abnormal. GRAN MAT (NEUT) % (test code = 770-8) 70.8 % IMM GRAN % (test code = 3201028606) 0.80 % LYMPH % (test code = 736-9) 18.4 % MONO % (test code = 5905-5) 7.6 % EOS % (test code = 713-8) 1.8 % BASO % (test code = 706-2) 0.6 % GRAN MAT x10^3(ANC) (test code = 1703365200) 6.93 10*3/uL 1.88-7.09 IMM GRAN x10^3 (test code = 3215483969) 0.08 10*3/uL 0.00-0.06 H LYMPH x10^3 (test code = 731-0) 1.80 10*3/uL 1.32-3.29 MONO x10^3 (test code = 742-7) 0.74 10*3/uL 0.33-0.92 EOS x10^3 (test code = 711-2) 0.18 10*3/uL 0.03-0.39 BASO x10^3 (test code = 704-7) 0.06 10*3/uL 0.01-0.07 Lab Interpretation (test code = 19751-6) [facility] [id number] 22:31:00* Test Item Value Reference Range Interpretation Comme nts IAT (test code = 1185) Negative [facility] [id number] 22:31:00* Test Item Value Reference Range Interpretation Comme nts IAT (test code = 1185) Negative [facility] [id number] 01:23:00* Test Item Value Reference Range Interpretation Comme nts GLUCOSE (test code = 92127617) 87 mg/dL 65-99 N Fasting referenc e interval UREA NITROGEN (BUN) (test code = 30658161) 21 mg/dL 7-25 N CREATININE (test code = 05722632) 0.67 mg/dL 0.60-1.00 N EGFR (test code = 24557051) 90 mL/min/1.73m2 >=60 N BUN/CREATININE RATIO (test code = 09774217) SEE NOTE: (calc) 6-22 N Not Reported: BUN and Creatinine are within reference range. SODIUM (test code = 42026378) 136 mmol/L 135-146 N POTASSIUM (test code = 21522607) 4.0 mmol/L 3.5-5.3 N CHLORIDE (test code = 90789977) 99 mmol/L 98-110 N CARBON DIOXIDE (test code = 29556312) 27 mmol/L 20-32 N CALCIUM (test code = 86756028) 7.9 mg/dL 8.6-10.4 L PROTEIN, TOTAL (test code = 79870456) 4.9 g/dL 6.1-8.1 L ALBUMIN (test code = 20724043) 2.7 g/dL 3.6-5.1 L GLOBULIN (test code = 97830629) 2.2 g/dL (calc) 1.9-3.7 N ALBUMIN/GLOBULIN RATIO (test code = 46488413) 1.2 (calc) 1.0-2.5 N BILIRUBIN, TOTAL (test code = 36342304) 0.6 mg/dL 0.2-1.2 N ALKALINE PHOSPHATASE (test code = 15003943) 53 U/L 37-153 N AST (test code = 00026233) 21 U/L 10-35 N ALT (test code = 54465029) 6 U/L 6-29 N [facility] WITH [id number] 12:39:00* Test Item Value Reference Range Interpretation Comme nts INR (test code = 84281929) 1.1 N Reference Range 0.9-1.1Moderate-intensity Warfarin Therapy 2.0-3.0Higher-intensity Warfarin Therapy 3.0-4.0 PT (test code = 64149822) 11.7 sec 9.0-11.5 H For additional information, please refer [email or web address] (This link is being provided for informational/educational purposes only.) [facility] (DIFF/PLT)2024-02-03 11:27:00* Test Item Value Reference Range Interpretation Comme nts WHITE BLOOD CELL COUNT (test code = 95917367) 7.6 Thousand/uL 3.8-10.8 N RED BLOOD CELL COUNT (test code = 18981827) 2.87 Million/uL 3.80-5.10 L HEMOGLOBIN (test code = 62838242) 8.4 g/dL 11.7-15.5 L HEMATOCRIT (test code = 12830012) 26.2 % 35.0-45.0 L MCV (test code = 99461359) 91.3 fL 80.0-100.0 N MCH (test code = 44981992) 29.3 pg 27.0-33.0 N MCHC (test code = 49169625) 32.1 g/dL 32.0-36.0 N RDW (test code = 28720065) 15.4 % 11.0-15.0 H PLATELET COUNT (test code = 02274174) 294 Thousand/uL 140-400 N MPV (test code = 34827262) 9.5 fL 7.5-12.5 N ABSOLUTE NEUTROPHILS (test code = 36616002) 4537 cells/uL 6237-6508 N ABSOLUTE LYMPHOCYTES (test code = 10367561) 1763 cells/uL 850-3900 N ABSOLUTE MONOCYTES (test cod e = 70010079) 1064 cells/uL 200-950 H ABSOLUTE EOSINOPHILS (test code = 46871160) 198 cells/uL 15-500 N ABSOLUTE BASOPHILS (test cod e = 24807957) 38 cells/uL 0-200 N NEUTROPHILS (test code = 18456996) 59.7 % N LYMPHOCYTES (test code = 32421393) 23.2 % N MONOCYTES (test code = 61032344) 14.0 % N EOSINOPHILS (test code = 90227493) 2.6 % N BASOPHILS (test code = 47205153) 0.5 % N [facility]NA+K+GLU+CA2+2024-02-03 02:23:49* Test Item Value Reference Range Interpretation Comme nts PH (test code = 2) 7.39 7.35-7.45 PCO2 (test code = 3401267104) 43 35-45 PO2 (test code = 8723471790) 217 80-100 H HCO3 (test code = 9729541721) 25 22-26 BE (test code = 6022963581) 0.1 -3.0-3.0 THB (test code = 2316910673) 9.6 g/dL 12.0-16.0 L %O2HB (test code = 3512980991) 98.8 % 94.0-99.0 %COHB ART (test code = 8054425013) 0.1 % 0.0-1.5 %METHB ART (test code = 6543406622) 0.3 % 0.4-1.5 L VOL%O2 ART (test code = 9328922090) 13.9 % 15.0-23.0 L QUES NA (test code = 3678987559) 128 mmol/L 135-145 L K+ (test code = 8724070684) 3.0 mmol/L 3.5-5.0 L AC CA IONZ (test code = 7814057942) 4.60 mg/dL 4.50-5.30 GLUCOSE (test code = 3889244380) 97 mg/dL 70-110 Lab Interpretation (test cod e = 30207-0) [facility]normal [facility]+K+GLU+CA2+2024-02-03 02:17:16* Test Item Value Reference Range Interpretation Comme nts PH (test code = 2) 7.36 7.35-7.45 PCO2 (test code = 2993035656) 44 35-45 PO2 (test code = 8978493194) 187 80-100 H HCO3 (test code = 5418668761) 24 22-26 BE (test code = 2804274680) -1.4 -3.0-3.0 THB (test code = 8019635669) 10.2 g/dL 12.0-16.0 L %O2HB (test code = 1376345907) 98.3 % 94.0-99.0 %COHB ART (test code = 2347178492) 0.3 % 0.0-1.5 %METHB ART (test code = 1781778631) 0.3 % 0.4-1.5 L VOL%O2 ART (test code = 9014270012) 14.5 % 15.0-23.0 L QUES NA (test code = 0642856846) 127 mmol/L 135-145 L K+ (test code = 3880689075) 3.2 mmol/L 3.5-5.0 L AC CA IONZ (test code = 8526340396) 4.60 mg/dL 4.50-5.30 GLUCOSE (test code = 3510928277) 124 mg/dL 70-110 H Lab Interpretation (test cod e = 69345-8) Abnormal [facility] GLUCOSE (AUTOMATED)2024-02-03 01:36:56* Test Item Value Reference Range Interpretation Comme nts POCT GLU (test code = 1564096289) 114 mg/dL 70-110 H Lab Interpretation (test cod e = 86742-1) Abnormal [facility] GLUCOSE (AUTOMATED)2024-02-02 21:34:07* Test Item Value Reference Range Interpretation Comme nts POCT GLU (test code = 5211536548) 117 mg/dL 70-110 H Lab Interpretation (test cod e = 80531-3) Abnormal [facility] GLUCOSE (AUTOMATED)2024-02-02 16:29:59* Test Item Value Reference Range Interpretation Comme nts POCT GLU (test code = 3716080102) 141 mg/dL 70-110 H Lab Interpretation (test cod e = 40623-5) Abnormal [facility] GLUCOSE (AUTOMATED)2024-02-02 13:26:15* Test Item Value Reference Range Interpretation Comme nts POCT GLU (test code = 8565065277) 110 mg/dL 70-110 Lab Interpretation (test cod e = 41158-4) Normal [facility] Metabolic Panel (NA, K, CL, CO2, GLUCOSE, BUN, CREATININE, CA)2024-02-02 10:50:51* Test Item Value Reference Range Interpretation Comme nts NA (test code = 9295844407) 130 mmol/L 135-145 L K (test code = 9700316518) 3.5 3.5-5.0 CL (test code = 0734989500) 97 mmol/L 98-108 L CO2 TOTAL (test code = 0283743943) 31 mmol/L 23-31 AGAP (test code = 6631674941) 2 2-16 BUN (test code = 2732566150) 16 mg/dL 7-23 GLUCOSE (test code = 0030692044) 97 mg/dL 70-110 CREATININE (test code = 2160-0) 0.64 mg/dL 0.50-1.04 CALCIUM (test code = 2283812471) 8.0 mg/dL 8.6-10.6 L eGFR (test code = 74117-6) 91.2 mL/min/1.73m2 CKD-EPI eGFR (2020). Assuming creatinine has been stable day-to-day for at least three months, the eGFR indicates Category G1 (>= 90 mL/min/1.73 m2) Lab Interpretation (test code = 72712-7) [facility]normal [facility] 10:50:51* Test Item Value Reference Range Interpretation Comme nts MAGNESIUM (test code = 0312843370) 1.8 mg/dL 1.7-2.4 Lab Interpretation (test cod e = 40426-1) Normal [facility] with [id number] 10:21:43* Test Item Value Reference Range Interpretation Comme nts WBC (test code = 6690-2) 8.20 4.30-11.10 RBC (test code = 789-8) 2.86 3.93-5.25 L HGB (test code = 718-7) 8.3 g/dL 11.6-15.0 L HCT (test code = 4544-3) 24.3 % 35.7-45.2 L MCV (test code = 787-2) 85.0 fL 80.6-95.5 MCH (test code = 785-6) 29.0 pg 25.9-32.8 MCHC (test code = 786-4) 34.2 g/dL 31.6-35.1 RDW-SD (test code = 28369-0) 52.4 fL 39.0-49.9 H RDW-CV (test code = 788-0) 16.9 % 12.0-15.5 H PLT (test code = 777-3) 250 166-358 MPV (test code = 20503-6) 8.8 fL 9.5-12.9 L NRBC/100 WBC (test code = 3817877321) 0.0 0.0-10.0 NRBC x10^3 (test code = 3113994784) See_Comment [Automated Patient Engagement Systemsa ge] The system which generated this result transmitted reference range: 10*3/?L. The reference range was not used to interpret this result as normal/abnormal. GRAN MAT (NEUT) % (test code = 770-8) 62.9 % IMM GRAN % (test code = 4323222497) 0.60 % LYMPH % (test code = 736-9) 21.0 % MONO % (test code = 5905-5) 13.0 % EOS % (test code = 713-8) 2.0 % BASO % (test code = 706-2) 0.5 % GRAN MAT x10^3(ANC) (test code = 8431665360) 5.16 10*3/uL 1.88-7.09 IMM GRAN x10^3 (test code = 3365643991) 0.05 10*3/uL 0.00-0.06 LYMPH x10^3 (test code = 731-0) 1.72 10*3/uL 1.32-3.29 MONO x10^3 (test code = 742-7) 1.07 10*3/uL 0.33-0.92 H EOS x10^3 (test code = 711-2) 0.16 10*3/uL 0.03-0.39 BASO x10^3 (test code = 704-7) 0.04 10*3/uL 0.01-0.07 Lab Interpretation (test code = 69439-1) Abnormal [facility] GLUCOSE (AUTOMATED)2024-02-02 01:38:05* Test Item Value Reference Range Interpretation Comme nts POCT GLU (test code = 4837195223) 118 mg/dL 70-110 H Lab Interpretation (test cod e = 32369-9) Abnormal [facility] GLUCOSE (AUTOMATED)2024-02-01 22:31:50* Test Item Value Reference Range Interpretation Comme nts POCT GLU (test code = 1112091693) 118 mg/dL 70-110 H Lab Interpretation (test cod e = 13669-3) [facility]normal [facility] 18:30:06* Test Item Value Reference Range Interpretation Comme [facility] APTT Patient (test code = 3173-2) 31 26-36 Lab Interpretation (test cod e = 49663-6) Normal [facility] GLUCOSE (AUTOMATED)2024-02-01 17:02:03* Test Item Value Reference Range Interpretation Comme [facility] POCT GLU (test code = 6082202696) 107 mg/dL 70-110 Lab Interpretation (test cod e = 45084-9) Normal [facility] GLUCOSE (AUTOMATED)2024-02-01 12:59:26* Test Item Value Reference Range Interpretation Comme [facility] POCT GLU (test code = 5822285072) 88 mg/dL 70-110 Lab Interpretation (test cod e = 63635-1) Normal [facility] Metabolic Panel (NA, K, CL, CO2, GLUCOSE, BUN, CREATININE, CA)2024-02-01 09:08:09* Test Item Value Reference Range Interpretation Comme [facility] NA (test code = 4816669052) 130 mmol/L 135-145 L K (test code = 3435289847) 3.7 3.5-5.0 Slight hemolysis CL (test code = 9670370422) 98 mmol/L 98-108 CO2 TOTAL (test code = 6608862765) 26 mmol/L 23-31 AGAP (test code = 7131970520) 6 2-16 BUN (test code = 9406939308) 14 mg/dL 7-23 Slight hemolysis GLUCOSE (test code = 8233893569) 80 mg/dL 70-110 CREATININE (test code = 2160-0) 0.66 mg/dL 0.50-1.04 CALCIUM (test code = 9224295293) 7.9 mg/dL 8.6-10.6 L eGFR (test code = 38921-1) 90.5 mL/min/1.73m2 CKD-EPI eGFR (2020). Assuming creatinine has been stable day-to-day for at least three months, the eGFR indicates Category G1 (>= 90 mL/min/1.73 m2) Lab Interpretation (test code = 77458-4) [facility]normal [facility] 09:08:09* Test Item Value Reference Range Interpretation Comme nts MAGNESIUM (test code = 1593400429) 1.9 mg/dL 1.7-2.4 Lab Interpretation (test cod e = 81208-2) Normal [facility] with [id number] 08:53:27* Test Item Value Reference Range Interpretation Comme nts WBC (test code = 6690-2) 8.89 4.30-11.10 RBC (test code = 789-8) 2.69 3.93-5.25 L HGB (test code = 718-7) 7.9 g/dL 11.6-15.0 L HCT (test code = 4544-3) 23.2 % 35.7-45.2 L MCV (test code = 787-2) 86.2 fL 80.6-95.5 MCH (test code = 785-6) 29.4 pg 25.9-32.8 MCHC (test code = 786-4) 34.1 g/dL 31.6-35.1 RDW-SD (test code = 70928-9) 54.2 fL 39.0-49.9 H RDW-CV (test code = 788-0) 17.2 % 12.0-15.5 H PLT (test code = 777-3) 198 166-358 MPV (test code = 43508-6) 9.8 fL 9.5-12.9 NRBC/100 WBC (test code = 9157172308) 0.0 0.0-10.0 NRBC x10^3 (test code = 8225950446) See_Comment [Automated messa ge] The system which generated this result transmitted reference range: 10*3/?L. The reference range was not used to interpret this result as normal/abnormal. GRAN MAT (NEUT) % (test code = 770-8) 63.3 % IMM GRAN % (test code = 2543637370) 0.40 % LYMPH % (test code = 736-9) 21.9 % MONO % (test code = 5905-5) 11.9 % EOS % (test code = 713-8) 2.2 % BASO % (test code = 706-2) 0.3 % GRAN MAT x10^3(ANC) (test code = 5287122859) 5.61 10*3/uL 1.88-7.09 IMM GRAN x10^3 (test code = 8388116621) 0.04 10*3/uL 0.00-0.06 LYMPH x10^3 (test code = 731-0) 1.95 10*3/uL 1.32-3.29 MONO x10^3 (test code = 742-7) 1.06 10*3/uL 0.33-0.92 H EOS x10^3 (test code = 711-2) 0.20 10*3/uL 0.03-0.39 BASO x10^3 (test code = 704-7) 0.03 10*3/uL 0.01-0.07 Lab Interpretation (test code = 73656-3) [facility] 01:08:36* Test Item Value Reference Range Interpretation Comme nts POCT GLU (test code = 1632843224) 109 mg/dL 70-110 Lab Interpretation (test cod e = 91772-4) Normal [facility] with [id number] 00:41:55* Test Item Value Reference Range Interpretation Comme nts WBC (test code = 6690-2) 10.59 4.30-11.10 RBC (test code = 789-8) 2.78 3.93-5.25 L HGB (test code = 718-7) 8.1 g/dL 11.6-15.0 L HCT (test code = 4544-3) 24.0 % 35.7-45.2 L MCV (test code = 787-2) 86.3 fL 80.6-95.5 MCH (test code = 785-6) 29.1 pg 25.9-32.8 MCHC (test code = 786-4) 33.8 g/dL 31.6-35.1 RDW-SD (test code = 99871-7) 55.6 fL 39.0-49.9 H RDW-CV (test code = 788-0) 17.5 % 12.0-15.5 H PLT (test code = 777-3) 186 166-358 MPV (test code = 79677-2) 9.8 fL 9.5-12.9 NRBC/100 WBC (test code = 2765128791) 0.0 0.0-10.0 NRBC x10^3 (test code = 8869539063) See_Comment [Automated Patient Engagement Systemsa ge] The system which generated this result transmitted reference range: 10*3/?L. The reference range was not used to interpret this result as normal/abnormal. GRAN MAT (NEUT) % (test code = 770-8) 70.2 % IMM GRAN % (test code = 9591602635) 0.70 % LYMPH % (test code = 736-9) 16.4 % MONO % (test code = 5905-5) 10.6 % EOS % (test code = 713-8) 1.8 % BASO % (test code = 706-2) 0.3 % GRAN MAT x10^3(ANC) (test code = 8008241413) 7.44 10*3/uL 1.88-7.09 H IMM GRAN x10^3 (test code = 7382497018) 0.07 10*3/uL 0.00-0.06 H LYMPH x10^3 (test code = 731-0) 1.74 10*3/uL 1.32-3.29 MONO x10^3 (test code = 742-7) 1.12 10*3/uL 0.33-0.92 H EOS x10^3 (test code = 711-2) 0.19 10*3/uL 0.03-0.39 BASO x10^3 (test code = 704-7) 0.03 10*3/uL 0.01-0.07 Lab Interpretation (test code = 76156-9) [facility]-31 21:56:27* Test Item Value Reference Range Interpretation Comme nts POCT GLU (test code = 7408608663) 107 mg/dL 70-110 Lab Interpretation (test cod e = 78023-8) [facility] [id number] 18:08:48EXAM: XR KUB HISTORY: 79 years-old Female with rule out ileus . COMPARISON: CT abdomen dated 01/27/20 24. TECHNIQUE: Supine AP view of the abdomen. FINDINGS: The visualized bowel gas pattern is normal.Moderate volume stool is notedwithin the right-sided colon. Gas is present within the rectum. No acute osseous abnormalities are visualized. Lumbar dextroscoliosis ispresent. Cholecystectomy clips are noted. Interval placement of right hip arthroplasty hardware and Braga catheter.[facility] GLUCOSE (AUTOMATED)2024-01-31 17:46:24* Test Item Value Reference Range Interpretation Comme [facility] POCT GLU (test code = 3950261175) 110 mg/dL 70-110 Lab Interpretation (test cod e = 08289-3) Normal [facility] GLUCOSE (AUTOMATED)2024-01-31 13:02:29* Test Item Value Reference Range Interpretation Comme [facility] POCT GLU (test code = 8748522763) 97 mg/dL 70-110 Lab Interpretation (test cod e = 64157-8) Normal [facility]. Metabolic Panel (31751)2024-01-31 09:33:10* Test Item Value Reference Range Interpretation Comme nts NA (test code = 7487080723) 130 mmol/L 135-145 L K (test code = 7405835752) 3.5 mmol/L 3.5-5.0 CL (test code = 9485278813) 97 mmol/L 98-108 L CO2 TOTAL (test code = 3934245775) 30 mmol/L 23-31 AGAP (test code = 4224617298) 3 2-16 BUN (test code = 7292252127) 13 mg/dL 7-23 GLUCOSE (test code = 6198381733) 93 mg/dL 70-110 CREATININE (test code = 2160-0) 0.69 mg/dL 0.50-1.04 TOTAL BILI (test code = 0169679556) 0.7 mg/dL 0.1-1.1 CALCIUM (test code = 0030645705) 7.8 mg/dL 8.6-10.6 L T PROTEIN (test code = 9316783923) 5.0 g/dL 6.3-8.2 L ALBUMIN (test code = 3803021775) 2.6 g/dL 3.5-5.0 L ALK PHOS (test code = 4074385477) 65 U/L 34-122 ALTv (test code = 1742-6) 8 U/L 5-35 AST(SGOT) (test code = 2468380260) 40 U/L 13-40 eGFR (test code = 25428-6) 89.5 mL/min/1.73m2 Lab Interpretation (test cod e = 36143-6) Abnormal [facility] with Fpjg8618-25-77 09:03:30* Test Item Value Reference Range Interpretation Comme nts WBC (test code = 6690-2) 10.81 4.30-11.10 RBC (test code = 789-8) 2.96 3.93-5.25 L HGB (test code = 718-7) 8.7 g/dL 11.6-15.0 L HCT (test code = 4544-3) 25.6 % 35.7-45.2 L MCV (test code = 787-2) 86.5 fL 80.6-95.5 MCH (test code = 785-6) 29.4 pg 25.9-32.8 MCHC (test code = 786-4) 34.0 g/dL 31.6-35.1 RDW-SD (test code = 30111-5) 54.0 fL 39.0-49.9 H RDW-CV (test code = 788-0) 17.2 % 12.0-15.5 H PLT (test code = 777-3) 161 166-358 L MPV (test code = 60418-5) 9.5 fL 9.5-12.9 NRBC/100 WBC (test code = 8297774819) 0.0 0.0-10.0 NRBC x10^3 (test code = 4705575731) See_Comment [Automated messa ge] The system which generated this result transmitted reference range: 10*3/?L. The reference range was not used to interpret this result as normal/abnormal. GRAN MAT (NEUT) % (test code = 770-8) 70.0 % IMM GRAN % (test code = 8797961139) 0.50 % LYMPH % (test code = 736-9) 17.3 % MONO % (test code = 5905-5) 10.1 % EOS % (test code = 713-8) 1.9 % BASO % (test code = 706-2) 0.2 % GRAN MAT x10^3(ANC) (test code = 5646215423) 7.57 10*3/uL 1.88-7.09 H IMM GRAN x10^3 (test code = 4576328072) 0.05 10*3/uL 0.00-0.06 LYMPH x10^3 (test code = 731-0) 1.87 10*3/uL 1.32-3.29 MONO x10^3 (test code = 742-7) 1.09 10*3/uL 0.33-0.92 H EOS x10^3 (test code = 711-2) 0.21 10*3/uL 0.03-0.39 BASO x10^3 (test code = 704-7) 0.01-0.07 Lab Interpretation (test code = 11339-0) Abnormal [facility] with Wgyi1635-23-22 08:16:14* Test Item Value Reference Range Interpretation Comme nts WBC (test code = 6690-2) 9.49 4.30-11.10 RBC (test code = 789-8) 3.18 3.93-5.25 L HGB (test code = 718-7) 9.2 g/dL 11.6-15.0 L HCT (test code = 4544-3) 26.7 % 35.7-45.2 L MCV (test code = 787-2) 84.0 fL 80.6-95.5 MCH (test code = 785-6) 28.9 pg 25.9-32.8 MCHC (test code = 786-4) 34.5 g/dL 31.6-35.1 RDW-SD (test code = 86645-4) 53.7 fL 39.0-49.9 H RDW-CV (test code = 788-0) 17.7 % 12.0-15.5 H PLT (test code = 777-3) 127 166-358 L MPV (test code = 93047-1) 9.7 fL 9.5-12.9 IPF % (test code = 4046064379) 1.8 % 1.3-7.7 Platelet count measured by fluorescence method. NRBC/100 WBC (test code = 0714196080) 0.0 0.0-10.0 NRBC x10^3 (test code = 4027055220) See_Comment [Automated messa ge] The system which generated this result transmitted reference range: 10*3/?L. The reference range was not used to interpret this result as normal/abnormal. GRAN MAT (NEUT) % (test code = 770-8) 68.7 % IMM GRAN % (test code = 4899986711) 0.60 % LYMPH % (test code = 736-9) 20.0 % MONO % (test code = 5905-5) 8.7 % EOS % (test code = 713-8) 1.6 % BASO % (test code = 706-2) 0.4 % GRAN MAT x10^3(ANC) (test code = 3594320572) 6.51 10*3/uL 1.88-7.09 IMM GRAN x10^3 (test code = 4162336958) 0.06 10*3/uL 0.00-0.06 LYMPH x10^3 (test code = 731-0) 1.90 10*3/uL 1.32-3.29 MONO x10^3 (test code = 742-7) 0.83 10*3/uL 0.33-0.92 EOS x10^3 (test code = 711-2) 0.15 10*3/uL 0.03-0.39 BASO x10^3 (test code = 704-7) 0.04 10*3/uL 0.01-0.07 BROWN CELLS (test code = 7790-9) 2+ See_Comment A [Automated messa ge] The system which generated this result transmitted reference range: (none). The reference range was not used to interpret this result as normal/abnormal. Lab Interpretation (test code = 09626-5) [facility] Test Item Value Reference Range Interpretation Comme nts MAGNESIUM (test code = 7960653344) 1.9 mg/dL 1.7-2.4 Slight hemolysis Lab Interpretation (test code = 28254-2) [facility] (NA, K, CL, CO2, GLUCOSE, BUN, CREATININE, CA)2024-01-31 02:32:33* Test Item Value Reference Range Interpretation Comme nts NA (test code = 5264930479) 130 mmol/L 135-145 L K (test code = 3487286074) 3.8 mmol/L 3.5-5.0 Slight hemolysis CL (test code = 5314328372) 100 mmol/L 98-108 CO2 TOTAL (test code = 5542584676) 26 mmol/L 23-31 AGAP (test code = 0772709990) 4 2-16 BUN (test code = 5648957677) 14 mg/dL 7-23 Slight hemolysis GLUCOSE (test code = 5187389448) 105 mg/dL 70-110 CREATININE (test code = 2160-0) 0.66 mg/dL 0.50-1.04 CALCIUM (test code = 1432200309) 7.8 mg/dL 8.6-10.6 L eGFR (test code = 37243-8) 90.5 mL/min/1.73m2 CKD-EPI eGFR (2020). Assuming creatinine has been stable day-to-day for at least three months, the eGFR indicates Category G1 (>= 90 mL/min/1.73 m2) Lab Interpretation (test code = 52180-6) [facility] [id number] 01:26:43* Test Item Value Reference Range Interpretation Comme nts WBC (test code = 6690-2) 11.88 4.30-11.10 H RBC (test code = 789-8) 3.01 3.93-5.25 L HGB (test code = 718-7) 8.7 g/dL 11.6-15.0 L HCT (test code = 4544-3) 25.7 % 35.7-45.2 L MCV (test code = 787-2) 85.4 fL 80.6-95.5 MCH (test code = 785-6) 28.9 pg 25.9-32.8 MCHC (test code = 786-4) 33.9 g/dL 31.6-35.1 RDW-SD (test code = 39288-9) 54.2 fL 39.0-49.9 H RDW-CV (test code = 788-0) 17.4 % 12.0-15.5 H PLT (test code = 777-3) 192 166-358 MPV (test code = 11654-4) 9.4 fL 9.5-12.9 L NRBC/100 WBC (test code = 1421032375) 0.0 0.0-10.0 NRBC x10^3 (test code = 3117577574) See_Comment [Automated messa ge] The system which generated this result transmitted reference range: 10*3/?L. The reference range was not used to interpret this result as normal/abnormal. GRAN MAT (NEUT) % (test code = 770-8) 74.3 % IMM GRAN % (test code = 2997049779) 0.50 % LYMPH % (test code = 736-9) 12.9 % MONO % (test code = 5905-5) 10.9 % EOS % (test code = 713-8) 1.2 % BASO % (test code = 706-2) 0.2 % GRAN MAT x10^3(ANC) (test code = 2534361360) 8.84 10*3/uL 1.88-7.09 H IMM GRAN x10^3 (test code = 9094204065) 0.06 10*3/uL 0.00-0.06 LYMPH x10^3 (test code = 731-0) 1.53 10*3/uL 1.32-3.29 MONO x10^3 (test code = 742-7) 1.29 10*3/uL 0.33-0.92 H EOS x10^3 (test code = 711-2) 0.14 10*3/uL 0.03-0.39 BASO x10^3 (test code = 704-7) 0.01-0.07 Lab Interpretation (test code = 09974-5) [facility] 01:22:21* Test Item Value Reference Range Interpretation Comme [facility] POCT GLU (test code = 2207565156) 120 mg/dL 70-110 H Lab Interpretation (test cod e = 92788-1) [facility]normal [facility] [id number] 21:22:00* Test Item Value Reference Range Interpretation Comme nts CLERICAL CK (test code = 542) See Comment product not avai lable [facility] GLUCOSE (AUTOMATED)2024-01-30 17:22:43* Test Item Value Reference Range Interpretation Comme nts POCT GLU (test code = 2400426220) 115 mg/dL 70-110 H Lab Interpretation (test cod e = 67980-1) Abnormal [facility] Packed RBC (in units), 1 Units 2024-01-30 13:49:17* Test Item Value Reference Range Interpretation Comme nts Cross Match Result (test code = 4409) Compatible ISBT Blood Type Code (test code = 660748) 5100 Unit Blood Type (test code = 4410) O Pos Unit Number (test code = 4411) [id number] Blood Expiration Date & Time (test code = 707773) [id number] Status Information (test code = 4412) Issued Product Identification (test code = 4413) Red Blood Cells Product Code (test code = 4414) [id number] Performed at [place] [id number] Free: [phone] No. [id number] [facility] GLUCOSE (AUTOMATED)2024-01-30 13:05:21* Test Item Value Reference Range Interpretation Comme nts POCT GLU (test code = 0723206146) 119 mg/dL 70-110 H Lab Interpretation (test cod e = 48160-7) Abnormal [facility] Packed RBC (in units), 1 Units 2024-01-30 11:00:10* Test Item Value Reference Range Interpretation Comme nts Cross Match Result (test code = 4409) Compatible ISBT Blood Type Code (test code = 305218) 5100 Unit Blood Type (test code = 4410) O Pos Unit Number (test code = 4411) [id number] Blood Expiration Date & Time (test code = 734248) [id number] Status Information (test code = 4412) Issued Product Identification (test code = 4413) Red Blood Cells Product Code (test code = 4414) [id number] Performed at [facility] Blood [place] [id number] Free: [phone] No. [id number] [facility] with [id number] 10:41:02* Test Item Value Reference Range Interpretation Comme nts WBC (test code = 6690-2) 11.92 4.30-11.10 H RBC (test code = 789-8) 1.84 3.93-5.25 L HGB (test code = 718-7) 5.5 g/dL 11.6-15.0 L HCT (test code = 4544-3) 16.2 % 35.7-45.2 L MCV (test code = 787-2) 88.0 fL 80.6-95.5 MCH (test code = 785-6) 29.9 pg 25.9-32.8 MCHC (test code = 786-4) 34.0 g/dL 31.6-35.1 RDW-SD (test code = 77413-4) 57.5 fL 39.0-49.9 H RDW-CV (test code = 788-0) 17.8 % 12.0-15.5 H PLT (test code = 777-3) 200 166-358 MPV (test code = 09771-3) 9.5 fL 9.5-12.9 NRBC/100 WBC (test code = 7486993713) 0.0 0.0-10.0 NRBC x10^3 (test code = 9420045285) See_Comment [Automated messa ge] The system which generated this result transmitted reference range: 10*3/?L. The reference range was not used to interpret this result as normal/abnormal. GRAN MAT (NEUT) % (test code = 770-8) 74.1 % IMM GRAN % (test code = 8843342402) 0.60 % LYMPH % (test code = 736-9) 15.4 % MONO % (test code = 5905-5) 9.4 % EOS % (test code = 713-8) 0.4 % BASO % (test code = 706-2) 0.1 % GRAN MAT x10^3(ANC) (test code = 8238796578) 8.83 10*3/uL 1.88-7.09 H IMM GRAN x10^3 (test code = 1698098307) 0.07 10*3/uL 0.00-0.06 H LYMPH x10^3 (test code = 731-0) 1.84 10*3/uL 1.32-3.29 MONO x10^3 (test code = 742-7) 1.12 10*3/uL 0.33-0.92 H EOS x10^3 (test code = 711-2) 0.05 10*3/uL 0.03-0.39 BASO x10^3 (test code = 704-7) 0.01-0.07 Lab Interpretation (test code = 44218-3) Abnormal [facility] with [id number] 09:09:09* Test Item Value Reference Range Interpretation Comme nts WBC (test code = 6690-2) 11.21 4.30-11.10 H RBC (test code = 789-8) 1.68 3.93-5.25 L HGB (test code = 718-7) 5.1 g/dL 11.6-15.0 L HCT (test code = 4544-3) 14.8 % 35.7-45.2 LL MCV (test code = 787-2) 88.1 fL 80.6-95.5 MCH (test code = 785-6) 30.4 pg 25.9-32.8 MCHC (test code = 786-4) 34.5 g/dL 31.6-35.1 RDW-SD (test code = 40295-6) 56.2 fL 39.0-49.9 H RDW-CV (test code = 788-0) 17.5 % 12.0-15.5 H PLT (test code = 777-3) 172 166-358 MPV (test code = 72562-0) 9.7 fL 9.5-12.9 NRBC/100 WBC (test code = 4118467581) 0.0 0.0-10.0 NRBC x10^3 (test code = 3382147392) See_Comment [Automated messa ge] The system which generated this result transmitted reference range: 10*3/?L. The reference range was not used to interpret this result as normal/abnormal. GRAN MAT (NEUT) % (test code = 770-8) 75.7 % IMM GRAN % (test code = 7733899015) 0.50 % LYMPH % (test code = 736-9) 13.0 % MONO % (test code = 5905-5) 10.3 % EOS % (test code = 713-8) 0.4 % BASO % (test code = 706-2) 0.1 % GRAN MAT x10^3(ANC) (test code = 7340523445) 8.48 10*3/uL 1.88-7.09 H IMM GRAN x10^3 (test code = 4402742405) 0.06 10*3/uL 0.00-0.06 LYMPH x10^3 (test code = 731-0) 1.46 10*3/uL 1.32-3.29 MONO x10^3 (test code = 742-7) 1.15 10*3/uL 0.33-0.92 H EOS x10^3 (test code = 711-2) 0.05 10*3/uL 0.03-0.39 BASO x10^3 (test code = 704-7) 0.01-0.07 Lab Interpretation (test code = 81961-8) Abnormal [facility] Metabolic Panel (NA, K, CL, CO2, GLUCOSE, BUN, CREATININE, CA)2024-01-30 09:02:46* Test Item Value Reference Range Interpretation Comme nts NA (test code = 0124874823) 126 mmol/L 135-145 L K (test code = 8714011946) 4.1 mmol/L 3.5-5.0 CL (test code = 1243584948) 98 mmol/L 98-108 CO2 TOTAL (test code = 6313966546) 23 mmol/L 23-31 AGAP (test code = 5602995235) 5 2-16 BUN (test code = 8749249388) 20 mg/dL 7-23 GLUCOSE (test code = 0150920098) 103 mg/dL 70-110 CREATININE (test code = 2160-0) 0.87 mg/dL 0.50-1.04 CALCIUM (test code = 0549407717) 7.5 mg/dL 8.6-10.6 L eGFR (test code = 42051-7) 68.7 mL/min/1.73m2 CKD-EPI eGFR (2020). Assuming creatinine has been stable day-to-day for at least three months, the eGFR indicates Category G2 (60 - 89 mL/min/1.73 m2) Lab Interpretation (test code = 18128-0) [facility] 09:02:46* Test Item Value Reference Range Interpretation Comme nts MAGNESIUM (test code = 1075637753) 2.2 mg/dL 1.7-2.4 Lab Interpretation (test cod e = 74718-3) Normal [facility] GLUCOSE (AUTOMATED)2024-01-30 01:41:14* Test Item Value Reference Range Interpretation Comme nts POCT GLU (test code = 9293655726) 134 mg/dL 70-110 H Lab Interpretation (test cod e = 19680-6) Abnormal [facility] GLUCOSE (AUTOMATED)2024-01-29 21:35:42* Test Item Value Reference Range Interpretation Comme nts POCT GLU (test code = 3693005325) 141 mg/dL 70-110 H Lab Interpretation (test cod e = 24305-6) [facility] 1 [id number] 21:17:29Study: Single view chest. Ordering Physician: ZACHARY JOYCE Date: 01/29/2024 2:00 AM History:routine COMPARISON: 01/27/2024 Findings: Single frontal view chest demonstrates a normal heart size. Thelungs are clear without infiltrate, pleural effusion or pneumothorax. Noacute osseous abnormality is identified.[facility] [id number] 19:11:26FULL RESULT: Examination: MR STROKE BRAIN WO CONTRAST on 01/29/2024 1:30 PM Clinical Indication: Left posterior temporal infarct Comparison: Concurrent head CT Technique: Multiplanar T1, T2 and diffusion-weighted images were obtainedthrough the brain. Findings: The sulci and ventricles were unremarkable. There are numerous additional foci of restricted diffusion in the leftposterior temporal-parietal region, annotated on image 18 of series 3 andrepresenting what is a known infarct in this location. There are numerousadditional foci of restricted diffusion in the left parietal and frontalwhite matter as well as at least one focus of restricted diffusion in theright posterior parietal region, i mage 25 series 3. There is no evidence ofhemorrhage, mass effect or midline shift.[facility] [id number] 19:11:26FULL RESULT: Examination: MR STROKE BRAIN WO CONTRAST on 01/29/2024 1:30 PM Clinical Indication: Left posterior temporal infarct Comparison: Concurrent head CT Technique: Multiplanar T1, T2 and diffusion-weighted images were obtainedthrough the brain. Findings: The sulci and ventricles were unremarkable. There are numerous additional foci of restricted diffusion in the leftposterior temporal-parietal region, annotated on image 18 of series 3 andrepresenting what is a known infarct in this location. There are numerousadditional foci of restricted diffusion in the left parietal and frontalwhite matter as well as at least one focus of restricted diffusion in theright posterior parietal region, i mage 25 series 3. There is no evidence ofhemorrhage, mass effect or midline shift.[facility] GLUCOSE (AUTOMATED)2024-01-29 17:02:16* Test Item Value Reference Range Interpretation Comme nts POCT GLU (test code = 6276047307) 145 mg/dL 70-110 H Lab Interpretation (test cod e = 30721-1) Abnormal [facility] GLUCOSE (AUTOMATED)2024-01-29 17:02:16* Test Item Value Reference Range Interpretation Comme nts POCT GLU (test code = 4340436449) 145 mg/dL 70-110 H Lab Interpretation (test cod e = 95748-8) [facility]normal [facility] 2 VW [id number] 15:34:36EXAM: XR HIPS 2 VW RIGHT HISTORY: 79 years old Female with post op hemiarthroplasty (Maintainposterior hip precautions.) COMPARISON: Right hip radiograph dated 01/27/2024 FINDINGS:Imaging of the righthip demonstrates interval right hip hemiarthroplastyin anatomic alignment. A 1.2 cm osseous fragment is seen medial to thefemoral neck prosthesis. Degenerative changes are seen in the left hip in theform of subchondralsclerosis, joint space loss, and marginal osteophytosis. Subcutaneous emphysema and skin surgical jacky are noted projected overthe right hip. Scattered vascular calcifications are seen. A Braga catheteris partially visualized.[facility] VW RIGHT 2024-01-29 15:34:36EXAM: XR HIPS 2 VW RIGHT HISTORY: 79 years old Female with post op hemiarthroplasty (Maintainposterior hip precautions.) COMPARISON: Right hip radiograph dated 01/27/2024 FINDINGS:Imaging of the righthip demonstrates interval right hip hemiarthroplastyin anatomic alignment. A 1.2 cm osseous fragment is seen medial to thefemoral neck prosthesis. Degenerative changes are seen in the left hip in theform of subchondralsclerosis, joint space loss, and marginal osteophytosis. Subcutaneous emphysema and skin surgical jacky are noted projected overthe right hip. Scattered vascular calcifications are seen. A Braga catheteris partially visualized.[facility] HEAD WO [id number] 14:12:32EXAM: CT HEAD WO CONTRAST HISTORY: 79 years-old Female; Provided indication: Stroke follow up . TECHNIQUE: Axial CT of the head was performed and reconstructed at 5 mmintervals. Coronal and sagittal r eformatted images were generated. COMPARISON: 01/27/2024. FINDINGS: The ventricles and cerebral sulci are unchanged in caliber andconfiguration. No midline shift or pathological extra-axial fluidcollection is present. The basal cisterns are unremarkable. No acute intracranial hemorrhage or significant mass effect is visualized.Hypodensity in left posterior temporal lobe likely due to acute/subacuteinfarct. Periventricular and subcortical white matter hypodensities arenonspecific but likely represent sequelae of microvascular ischemicdisease. The mastoid air cells and paranasal air sinuses are clear. The calvariumand central skull base are unremarkable.[facility] HEAD WO [id number] 14:12:32EXAM: CT HEAD WO CONTRAST HISTORY: 79 years-old Female; Provided indication: Stroke follow up . TECHNIQUE: Axial CT of the head was performed and reconstructed at 5 mmintervals. Coronal and sagittal reformatted images were generated. COMPARISON: 01/27/2024. FINDINGS: The ventricles and cerebral sulci are unchanged in caliber andconfiguration. No midline shift or pathological extra-axial fluidcollection is present. The basal cisterns are unremarkable. No acute intracranial hemorrhage or significant mass effect is visualized.Hypodensity in left posterior temporal lobe likely due to acute/subacuteinfarct. Periventricular and subcortical white matter hypodensities arenonspecific but likely represent sequelae of microvascular ischemicdisease. The mastoid air cells and paranasal air sinuses are clear. The calvariumand central skull base are unremarkable.[facility] FEMUR 2 VW [id number] 13:14:04EXAM: XR FEMUR 2 VW RIGHT HISTORY: right femoral neck fracture COMPARISON: None. FINDINGS: A mildlydisplaced and angulated fracture of the femoral neck is againseen. Osteopenia and vascular calcifications are noted. Contrast fromearlier CT scan is seen within the urinary bladder and ureters.[facility] FEMUR 2 VW [id number] 13:14:04EXAM: XR FEMUR 2 VW RIGHT HISTORY: right femoral neck fracture COMPARISON: None. FINDINGS: A mildlydisplaced and angulated fracture of the femoral neck is againseen. Osteopenia and vascular calcifications are noted. Contrast fromearlier CT scan is seen within the urinary bladder and ureters. [facility] GLUCOSE (AUTOMATED)2024-01-29 12:35:20* Test Item Value Reference Range Interpretation Comme [facility] POCT GLU (test code = 3591655533) 126 mg/dL 70-110 H Lab Interpretation (test cod e = 34636-0) Abnormal [facility] GLUCOSE (AUTOMATED)2024-01-29 12:35:20* Test Item Value Reference Range Interpretation Comme nts POCT GLU (test code = 6237611825) 126 mg/dL 70-110 H Lab Interpretation (test cod e = 90890-6) [facility]normal [facility]2024-07-29 07:38:18* Test Item Value Reference Range Interpretation Comme nts MAGNESIUM (test code = 6669617512) 2.9 mg/dL 1.7-2.4 H Lab Interpretation (test cod e = 77313-3) Abnormal [facility] Metabolic Panel (NA, K, CL, CO2, GLUCOSE, BUN, CREATININE, CA)2024-01-29 07:38:18* Test Item Value Reference Range Interpretation Comme nts NA (test code = 5058257465) 128 mmol/L 135-145 L K (test code = 9976532202) 3.9 mmol/L 3.5-5.0 CL (test code = 1267065739) 98 mmol/L 98-108 CO2 TOTAL (test code = 7912542063) 18 mmol/L 23-31 L AGAP (test code = 5460645391) 12 2-16 BUN (test code = 1211252833) 12 mg/dL 7-23 GLUCOSE (test code = 1430446350) 124 mg/dL 70-110 H CREATININE (test code = 2160-0) 0.73 mg/dL 0.50-1.04 CALCIUM (test code = 1717788664) 7.6 mg/dL 8.6-10.6 L eGFR (test code = 81541-3) 84.8 mL/min/1.73m2 CKD-EPI eGFR (2020). Assuming creatinine has been stable day-to-day for at least three months, the eGFR indicates Category G2 (60 - 89 mL/min/1.73 m2) Lab Interpretation (test code = 43627-8) [facility]normal [facility]2024-07-29 07:38:18* Test Item Value Reference Range Interpretation Comme nts MAGNESIUM (test code = 9014456714) 2.9 mg/dL 1.7-2.4 H Lab Interpretation (test cod e = 78757-7) Abnormal [facility] Metabolic Panel (NA, K, CL, CO2, GLUCOSE, BUN, CREATININE, CA)2024-01-29 07:38:18* Test Item Value Reference Range Interpretation Comme nts NA (test code = 6035013322) 128 mmol/L 135-145 L K (test code = 4123014719) 3.9 mmol/L 3.5-5.0 CL (test code = 1461457269) 98 mmol/L 98-108 CO2 TOTAL (test code = 5376150557) 18 mmol/L 23-31 L AGAP (test code = 4281240175) 12 2-16 BUN (test code = 3569332517) 12 mg/dL 7-23 GLUCOSE (test code = 0448522379) 124 mg/dL 70-110 H CREATININE (test code = 2160-0) 0.73 mg/dL 0.50-1.04 CALCIUM (test code = 1280554456) 7.6 mg/dL 8.6-10.6 L eGFR (test code = 14197-1) 84.8 mL/min/1.73m2 CKD-EPI eGFR (2020). Assuming creatinine has been stable day-to-day for at least three months, the eGFR indicates Category G2 (60 - 89 mL/min/1.73 m2) Lab Interpretation (test code = 94759-3) Abnormal [facility] with [id number] 07:14:32* Test Item Value Reference Range Interpretation Comme nts WBC (test code = 6690-2) 12.02 4.30-11.10 H RBC (test code = 789-8) 2.62 3.93-5.25 L HGB (test code = 718-7) 7.6 g/dL 11.6-15.0 L HCT (test code = 4544-3) 22.6 % 35.7-45.2 L MCV (test code = 787-2) 86.3 fL 80.6-95.5 MCH (test code = 785-6) 29.0 pg 25.9-32.8 MCHC (test code = 786-4) 33.6 g/dL 31.6-35.1 RDW-SD (test code = 41769-3) 55.7 fL 39.0-49.9 H RDW-CV (test code = 788-0) 17.5 % 12.0-15.5 H PLT (test code = 777-3) 233 166-358 MPV (test code = 03270-1) 8.9 fL 9.5-12.9 L NRBC/100 WBC (test code = 2316009333) 0.0 0.0-10.0 NRBC x10^3 (test code = 3052822340) See_Comment [Automated message] The system which generated this result transmitted reference range: 10*3/?L. The reference range was not used to interpret this result as normal/abnormal. GRAN MAT (NEUT) % (test code = 770-8) 91.8 % IMM GRAN % (test code = 2697139612) 0.50 % LYMPH % (test code = 736-9) 3.3 % MONO % (test code = 5905-5) 4.2 % EOS % (test code = 713-8) 0.0 % BASO % (test code = 706-2) 0.2 % GRAN MAT x10^3(ANC) (test code = 6082033215) 11.03 10*3/uL 1.88-7.09 H IMM GRAN x10^3 (test code = 2680358778) 0.06 10*3/uL 0.00-0.06 LYMPH x10^3 (test code = 731-0) 0.40 10*3/uL 1.32-3.29 L MONO x10^3 (test code = 742-7) 0.51 10*3/uL 0.33-0.92 EOS x10^3 (test code = 711-2) 0.03-0.39 L BASO x10^3 (test code = 704-7) 0.01-0.07 Lab Interpretation (test code = 15949-5) Abnormal [facility] with [id number] 07:14:32* Test Item Value Reference Range Interpretation Comme nts WBC (test code = 6690-2) 12.02 4.30-11.10 H RBC (test code = 789-8) 2.62 3.93-5.25 L HGB (test code = 718-7) 7.6 g/dL 11.6-15.0 L HCT (test code = 4544-3) 22.6 % 35.7-45.2 L MCV (test code = 787-2) 86.3 fL 80.6-95.5 MCH (test code = 785-6) 29.0 pg 25.9-32.8 MCHC (test code = 786-4) 33.6 g/dL 31.6-35.1 RDW-SD (test code = 17832-7) 55.7 fL 39.0-49.9 H RDW-CV (test code = 788-0) 17.5 % 12.0-15.5 H PLT (test code = 777-3) 233 166-358 MPV (test code = 83682-8) 8.9 fL 9.5-12.9 L NRBC/100 WBC (test code = 7004920598) 0.0 0.0-10.0 NRBC x10^3 (test code = 1123502133) See_Comment [Automated message] The system which generated this result transmitted reference range: 10*3/?L. The reference range was not used to interpret this result as normal/abnormal. GRAN MAT (NEUT) % (test code = 770-8) 91.8 % IMM GRAN % (test code = 9541570925) 0.50 % LYMPH % (test code = 736-9) 3.3 % MONO % (test code = 5905-5) 4.2 % EOS % (test code = 713-8) 0.0 % BASO % (test code = 706-2) 0.2 % GRAN MAT x10^3(ANC) (test code = 5191279519) 11.03 10*3/uL 1.88-7.09 H IMM GRAN x10^3 (test code = 5991389041) 0.06 10*3/uL 0.00-0.06 LYMPH x10^3 (test code = 731-0) 0.40 10*3/uL 1.32-3.29 L MONO x10^3 (test code = 742-7) 0.51 10*3/uL 0.33-0.92 EOS x10^3 (test code = 711-2) 0.03-0.39 L BASO x10^3 (test code = 704-7) 0.01-0.07 Lab Interpretation (test code = 30520-3) Abnormal [facility] GLUCOSE (AUTOMATED)2024-01-29 01:27:39* Test Item Value Reference Range Interpretation Comme nts POCT GLU (test code = 4528208011) 119 mg/dL 70-110 H Lab Interpretation (test cod e = 20163-8) Abnormal [facility] GLUCOSE (AUTOMATED)2024-01-29 01:27:39* Test Item Value Reference Range Interpretation Comme nts POCT GLU (test code = 6148948483) 119 mg/dL 70-110 H Lab Interpretation (test cod e = 06561-1) Abnormal [facility] - Duration of test: 20-60 mins; Release to patient: [id number] 00:00:00VIDEO EEG NAME: Jazz Camargo time: 01/29/24, 7:48:46-08:09:21 HISTORY: Jazz Camargo is a 79 year old right handed female with PMHX of htn who presented on 01/27/2024 with sudden onset aphasia and right sided weakness accompanied with a fall and later underwent right hip surgery. 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 ?MEDICATIONS THAT COULD AFFECT THE EEG: [place] and Tramadol. ?TECHNICAL SUMMARY: The [place] electroencephalogram was simultaneously recorded with the video. An electrodiagnostic technologist placedscalp electrodes according to the [employer] 10-20 System with at least 21 recording electrodes. In addition, ocular leads and a single-channel EKG were recorded. Both bipolar and referential montages were used. Activation Procedures included photic stimulation from 1Hz to 21 Hz, eye-opening and closing, and verbal stimulation. The EEG was partially obscured by muscle artifacts. ??DESC RIPTION OF RECORD: BACKGROUND: The record is for the most part contaminated by much myogenic artifact that precludes detailed interpretation of the study. This EEG consists of asymmetric, continuous, 1-3Hz delta activity intermixed with 4- 7Hz theta frequency with superimposed faster frequencies. During the maximally alert state, a 7Hz, reactive, posterior dominant rhythm is seen. No organized sleep structures were seen. The background manifested spontaneous variability and reactivity. FOCAL ABNORMALITIES: Intermittent, left, hemispheric, 1.5 to 2Hz delta slowing was seen. PERIODIC/RHYTHMIC ABNORMALITIES: Frequent, generalized, semi-periodic discharges with shifting hemispheric predominance, lasting very brief duration. ?VIDEO EVENTS: No seizures or other events were seen.? ??HV: Hyperventilation was not performed.? ??PHOTIC STIMULATION: Photic stimulation was not performed. ??ELECTROCARDIOGRAM EVENTS: Normal Sinus Rhythm, 65 BPM?IMPRESSION: Abnormal EEG due : Frequent, generalized, semi-periodic discharges with shifting hemispheric predominance, lasting very brief duration. Intermittent, left, hemispheric, 1.5 to 2Hz delta slowing Generalized slowing, theta/delta, reactiveBackground slowing, slow posterior dominant rhythm CLINICAL CORRELATION: ?This an abnormal EEG indicating the presence of moderate degree of encephalopathy due to global cerebral dysfunction secondary to nonspecific etiology with superimposed left hemispheric dysfunction. GPDs indicate cortical irritability and can be seen in toxic-metabolic causes of encephalopathy. In the appropriate clinical context, thet meay indicate increased epileptogenic potential. No seizures were seen. ? Stephanie Fontenot M.D.PGY 4, Neurology I personally interpreted the entirety of this test and helped formulate the report written above. Jim Dacosta professor of NeurologyH[facility]2024-01-28 22:04:12* Test Item Value Reference Range Interpretation Comme nts POCT GLU (test code = 2434035313) 126 mg/dL 70-110 H Notified Provide r Lab Interpretation (test code = 69919-3) Abnormal [facility] GLUCOSE (AUTOMATED)2024-01-28 22:04:12* Test Item Value Reference Range Interpretation Comme nts POCT GLU (test code = 2488513933) 126 mg/dL 70-110 H Notified Provide r Lab Interpretation (test code = 84187-0) [facility]normal [facility] [id number] 18:25:00Jluis Barksdale MD ? ? 01/28/2024 ?1:49 PM Arterial Line Date/Time: 01/28/2024 1:25 PM Performed by: Jluis Barksdale MDArterial Line Placement: ?Ultrasound-Guided: ultrasound guided ? ?Patient Location: ?OR ?Indication: continuous blood pressure monitoring and blood sampling needed ?Staff: ?Supervising Anesthesiologist: ?Kalia Mosquera MD ?Resident: ?Jluis Barksdale, [facility]ENTERrocedure Detail: ?Catheter Size: ?20 gauge ?Catheter Length: ?1 and 3/4 inch ?Catheter Type: ?Angiocath ?Seldinger Technique?: Yes ? ?Laterality: ?Left ?Site: ?Radial artery ?Line Secured: ?Tegaderm and tape?Preparation: ?ChloroprepEvents: ?Events: ?Patient tolerated procedure well with no complications and all wires accounted for [facility] HospitalN[facility] [id number] 18:23:52Byron Mojica MD ? ? 01/28/2024 ?1:25 PM Nerve Block Procedure: Other Peripheral Nerve (fascia illiac nerve block) Patient Location: ORLaterality: RightSurgical Anesthesia: Post Op Pain: Start Time: 01/28/2024 1:24 PMPost Op Pain Management requested by surgeon per surgical: Progress NoteAnesthesiologist: Kalia Mosquera, LAVELLEesident/BODY SPECIALIST: Byron Mojica MDPerformed by: resident/CRNAPreanesthetic timeout completed prior to procedure: patient identified,IV checked, site marked, risks and benefits discussed, surgical consent, monitors and equipment checked, pre-op evaluation, timeout performedPatient Position: supineSterile Prep/Drape: YesMonitoring: continuous pulse ox, blood pressure and ECGInjection Technique: single-shotNeedle Type: StimuplexNeedle Gauge: 22 GNeedle Length: 4.0Number of Attempts: 1Technique: Ultrasound guided, Negative aspiration and Intermittent aspiration duringinjectionSensory Effect: Unable to assess Medications Given: Regional:Bupiv 0.25% 50 mLEPI 1:100UnDel [facility] CenterIntubation2024-07-28 17:58:00Jluis Barksdale MD ? ? 01/28/2024 ?1:49 PMIntubationDate/Time: 01/28/2024 12:58 PMUrgency: elective Airway not difficult General Information and Staff Patient location during procedure: ORPerformed: resident/BODY SPECIALIST Performed by: Jluis Barksdale MDAuthorized by: Kalia Mosquera MD ? Indications and Patient ConditionIndications for airway management: anesthesia and airway protectionSpontaneous Ventilation: absentSedation level: deepPreoxygenated: yesPatient position: sniffingMask diff iculty assessment: 2 - vent by mask + OA or adjuvant +/- NMBA Final Airway DetailsFinal airway type: endotracheal airway Successful airway: ETTCuffed: yes Successful intubation technique: direct laryngoscopyFacilitating devices/methods: intubating styletEndotracheal tube insertion site: oralBlade: M acintoshBlade size: #3ETT size (mm): 7.0Cormack-Lehane Classification: grade I - full view of glottisPlacement verified by: capnometry and palpation of cuff Cuff volume (mL): 8Measured from: lipsETT to lips (cm): 22Number of attempts at approach: 1 Additional CommentsSmooth, atraumatic, dentition and lips unchanged from [facility]Un[facility]24[facility]28 16:40:43* Test Item Value Reference Range Interpretation Comme nts POCT GLU (test code = 2270294457) 96 mg/dL 70-110 Lab Interpretation (test cod e = 66363-9) Normal [facility] GLUCOSE (AUTOMATED)2024-01-28 16:40:43* Test Item Value Reference Range Interpretation Comme nts POCT GLU (test code = 3360743253) 96 mg/dL 70-110 Lab Interpretation (test cod e = 32632-6) Normal [facility] GLUCOSE (AUTOMATED)2024-01-28 12:45:14* Test Item Value Reference Range Interpretation Comme nts POCT GLU (test code = 6340005716) 96 mg/dL 70-110 Lab Interpretation (test cod e = 46475-0) Normal [facility] GLUCOSE (AUTOMATED)2024-01-28 12:45:14* Test Item Value Reference Range Interpretation Comme nts POCT GLU (test code = 2546100220) 96 mg/dL 70-110 Lab Interpretation (test cod e = 58367-6) Normal [facility] Metabolic Panel (NA, K, CL, CO2, GLUCOSE, BUN, CREATININE, CA)2024-01-28 10:13:18* Test Item Value Reference Range Interpretation Comme nts NA (test code = 4033028707) 129 mmol/L 135-145 L K (test code = 6798993737) 3.8 mmol/L 3.5-5.0 Slight hemolysis CL (test code = 2054634080) 99 mmol/L 98-108 CO2 TOTAL (test code = 2504565483) 26 mmol/L 23-31 AGAP (test code = 0215935937) 4 2-16 BUN (test code = 7652465753) 7 mg/dL 7-23 Slight hemolysis GLUCOSE (test code = 0909620879) 89 mg/dL 70-110 CREATININE (test code = 2160-0) 0.52 mg/dL 0.50-1.04 CALCIUM (test code = 5265227898) 8.3 mg/dL 8.6-10.6 L eGFR (test code = 44663-7) 95.8 mL/min/1.73m2 CKD-EPI eGFR (2020). Assuming creatinine has been stable day-to-day for at least three months, the eGFR indicates Category G1 (>= 90 mL/min/1.73 m2) Lab Interpretation (test code = 67168-0) Abnormal [facility]2024-07-28 10:13:18* Test Item Value Reference Range Interpretation Comme nts MAGNESIUM (test code = 7386767738) 1.6 mg/dL 1.7-2.4 L Lab Interpretation (test cod e = 88973-2) Abnormal [facility] Metabolic Panel (NA, K, CL, CO2, GLUCOSE, BUN, CREATININE, CA)2024-01-28 10:13:18* Test Item Value Reference Range Interpretation Comme nts NA (test code = 5201661435) 129 mmol/L 135-145 L K (test code = 5804354319) 3.8 mmol/L 3.5-5.0 Slight hemolysis CL (test code = 7779940035) 99 mmol/L 98-108 CO2 TOTAL (test code = 0659772177) 26 mmol/L 23-31 AGAP (test code = 0707060946) 4 2-16 BUN (test code = 1209713003) 7 mg/dL 7-23 Slight hemolysis GLUCOSE (test code = 1053383376) 89 mg/dL 70-110 CREATININE (test code = 2160-0) 0.52 mg/dL 0.50-1.04 CALCIUM (test code = 4807024982) 8.3 mg/dL 8.6-10.6 L eGFR (test code = 11898-7) 95.8 mL/min/1.73m2 CKD-EPI eGFR (2020). Assuming creatinine has been stable day-to-day for at least three months, the eGFR indicates Category G1 (>= 90 mL/min/1.73 m2) Lab Interpretation (test code = 51120-9) Abnormal [facility]2024-07-28 10:13:18* Test Item Value Reference Range Interpretation Comme nts MAGNESIUM (test code = 3906596877) 1.6 mg/dL 1.7-2.4 L Lab Interpretation (test cod e = 39432-8) Abnormal [facility] with [id number] 09:48:16* Test Item Value Reference Range Interpretation Comme nts WBC (test code = 6690-2) 12.10 4.30-11.10 H RBC (test code = 789-8) 3.46 3.93-5.25 L HGB (test code = 718-7) 10.0 g/dL 11.6-15.0 L HCT (test code = 4544-3) 30.0 % 35.7-45.2 L MCV (test code = 787-2) 86.7 fL 80.6-95.5 MCH (test code = 785-6) 28.9 pg 25.9-32.8 MCHC (test code = 786-4) 33.3 g/dL 31.6-35.1 RDW-SD (test code = 69597-4) 56.5 fL 39.0-49.9 H RDW-CV (test code = 788-0) 17.9 % 12.0-15.5 H PLT (test code = 777-3) 268 166-358 MPV (test code = 99202-8) 9.6 fL 9.5-12.9 NRBC/100 WBC (test code = 3363430053) 0.0 0.0-10.0 NRBC x10^3 (test code = 9294472417) See_Comment [Automated messa ge] The system which generated this result transmitted reference range: 10*3/?L. The reference range was not used to interpret this result as normal/abnormal. GRAN MAT (NEUT) % (test code = 770-8) 74.4 % IMM GRAN % (test code = 1089464804) 0.50 % LYMPH % (test code = 736-9) 15.3 % MONO % (test code = 5905-5) 7.4 % EOS % (test code = 713-8) 1.9 % BASO % (test code = 706-2) 0.5 % GRAN MAT x10^3(ANC) (test code = 7862356923) 9.01 10*3/uL 1.88-7.09 H IMM GRAN x10^3 (test code = 6005411914) 0.06 10*3/uL 0.00-0.06 LYMPH x10^3 (test code = 731-0) 1.85 10*3/uL 1.32-3.29 MONO x10^3 (test code = 742-7) 0.89 10*3/uL 0.33-0.92 EOS x10^3 (test code = 711-2) 0.23 10*3/uL 0.03-0.39 BASO x10^3 (test code = 704-7) 0.06 10*3/uL 0.01-0.07 Lab Interpretation (test code = 44730-1) Abnormal [facility] with [id number] 09:48:16* Test Item Value Reference Range Interpretation Comme nts WBC (test code = 6690-2) 12.10 4.30-11.10 H RBC (test code = 789-8) 3.46 3.93-5.25 L HGB (test code = 718-7) 10.0 g/dL 11.6-15.0 L HCT (test code = 4544-3) 30.0 % 35.7-45.2 L MCV (test code = 787-2) 86.7 fL 80.6-95.5 MCH (test code = 785-6) 28.9 pg 25.9-32.8 MCHC (test code = 786-4) 33.3 g/dL 31.6-35.1 RDW-SD (test code = 28856-1) 56.5 fL 39.0-49.9 H RDW-CV (test code = 788-0) 17.9 % 12.0-15.5 H PLT (test code = 777-3) 268 166-358 MPV (test code = 40843-5) 9.6 fL 9.5-12.9 NRBC/100 WBC (test code = 0524921851) 0.0 0.0-10.0 NRBC x10^3 (test code = 5779914241) See_Comment [Automated messa ge] The system which generated this result transmitted reference range: 10*3/?L. The reference range was not used to interpret this result as normal/abnormal. GRAN MAT (NEUT) % (test code = 770-8) 74.4 % IMM GRAN % (test code = 2215659196) 0.50 % LYMPH % (test code = 736-9) 15.3 % MONO % (test code = 5905-5) 7.4 % EOS % (test code = 713-8) 1.9 % BASO % (test code = 706-2) 0.5 % GRAN MAT x10^3(ANC) (test code = 1377727911) 9.01 10*3/uL 1.88-7.09 H IMM GRAN x10^3 (test code = 0961187399) 0.06 10*3/uL 0.00-0.06 LYMPH x10^3 (test code = 731-0) 1.85 10*3/uL 1.32-3.29 MONO x10^3 (test code = 742-7) 0.89 10*3/uL 0.33-0.92 EOS x10^3 (test code = 711-2) 0.23 10*3/uL 0.03-0.39 BASO x10^3 (test code = 704-7) 0.06 10*3/uL 0.01-0.07 Lab Interpretation (test code = 16369-8) Abnormal [facility] GLUCOSE (AUTOMATED)2024-01-28 01:32:04* Test Item Value Reference Range Interpretation Comme nts POCT GLU (test code = 2042012232) 110 mg/dL 70-110 Lab Interpretation (test cod e = 00391-4) Normal [facility] GLUCOSE (AUTOMATED)2024-01-28 01:32:04* Test Item Value Reference Range Interpretation Comme nts POCT GLU (test code = 7172979526) 110 mg/dL 70-110 Lab Interpretation (test cod e = 56382-9) Normal [facility] GLUCOSE (AUTOMATED)2024-01-27 22:03:26* Test Item Value Reference Range Interpretation Comme nts POCT GLU (test code = 4569510220) 100 mg/dL 70-110 Lab Interpretation (test cod e = 77597-2) [facility] 22:03:26* Test Item Value Reference Range Interpretation Comme [facility] POCT GLU (test code = 7795559243) 100 mg/dL 70-110 Lab Interpretation (test cod e = 20548-2) [facility] - Transthoracic echo (TTE) 2024-01-27 21:03:41* Test Item Value Reference Range Interpretation Comme nts Height (test code = 7298557643) 66 in Weight (test code = 0518662341) 121 lbs Systolic BP (test code = 2391006668) 190 mmHg Diastolic BP (test code = 3507425323) 82 mmHg Heart Rate (test code = 0856421222) 55 bpm LV GLS Endo Peak A2C () (test code = 4589551657) -9.60 % LV GLS Endo Peak A3C () (test code = 9383844678) -8.80 % LV GLS Endo Peak A4C () (test code = 5608470866) -11.90 % LV GLS Endo Peak Avg () (test code = 1409037634) -10.10 % BSA (test code = 4774945646) 1.62 m2 Ao root diam (test code = 2219320187) 3.30 cm Aortic root (test code = 3163273581) 3.3 cm Ao root annulus (test code = 1728651775) 3.3 cm LA size (test code = 7249323466) 5.0 cm LVIDD (test code = 6701282992) 4.60 cm Left Ventricular End Diastolic Volume by Teichholz Method (test code = 7873737) 98.5 mL IVS (test code = 8401629960) 0.98 cm Interventricular Septum Diastolic Thickness by 2D (test code = 1495570) 0.98 cm LVPWD (test code = 0666239039) 0.96 cm PW (test code = 8882870066) 0.96 cm 0.6-1.1 EF(Teich) (test code = 9547006900) 52.00 % LVIDS (test code = 1889278138) 3.40 cm Left Ventricular End Systolic Volume by Teichholz Method (test code = 0291036) 47.3 mL FS (test code = 4995135561) 27 % EF - 2D (test code = 58887203) 52.00 % LVOT diameter (test code = 9509439401) 2.17 cm LVOT area (test code = 9642150806) 3.70 cm2 MV Prop V (test code = 0549620711) 32.40 cm/s MV Peak E Esperanza (test code = 6911676975) 62.4 cm/s MV Peak A Esperanza (test code = 3498267878) 128.5 cm/s E/A ratio (test code = 7636058195) 0.49 ratio E wave decelartion time (test code = 7672784245) 0.51 s LAV(MOD-sp4) (test code = 3096641171) 113.20 mL Aortic valve mean velocity (test code = 5567067579) 97.5 cm/s Ao peak esperanza (test code = 7364266186) 144.5 cm/s Ao VTI (test code = 4956739496) 30.6 cm Ao max PG (test code = 7192973033) 8.30 mm[Hg] AV peak gradient (test code = 4652802491) 8.3 mmHg AV mean gradient (test code = 8618706044) 4.2 mmHg LVOT stroke volume (test code = 7941152589) 81.20 cm3 LVOT peak esperanza (test code = 7216045953) 94.7 cm/s LVOT mn grad (test code = 2474705197) 1.7 mmHg AV LVOT peak gradient (test code = 6332981537) 3.6 mmHg LVOT peak VTI (test code = 9042773048) 21.9 cm AV area by cont VTI (test code = 8737849675) 2.7 cm2 AV area peak esperanza (test code = 6100478824) 2.4 cm2 LV V1 mean (test code = 2795513992) 61.50 cm/s AV valve area (test code = 5046841918) 2.70 cm2 Tapse (test code = 2097874140) 2.20 cm LA Volume Index (BP) (test code = 8350686990) 69.7 mL/m2 LA volume (BP) (test code = 8735269256) 112.7 mL LAV(MOD-sp2) (test code = 5632236887) 112.00 mL MV mean gradient (test code = 6260816639) 2.47 mmHg MV peak gradient (test code = 6748374478) 8.8 mmHg MV pk esperanza (test code = 2168150760) 148.0 cm/s MV valve area by continuity eq (test code = 1316807245) 2.13 cm2 MV VTI (test code = 5640393863) 38.2 cm MV V2 mean (test code = 2338353526) 72.60 cm/s MV stenosis pressure 1/2 time (test code = 6375376710) 117.1 ms Radiology Study observation (narrative) (test code = 31262-4) JUSTIN (test code = JUSTIN) ?Left?Ventricle: Left ventricle size is normal. Mildly increased wall thickness. Mild global hypokinesis present. Mildly reduced systolic function with a visually estimated EF of 40 - 45%. There is grade 1 diastolic dysfunction. GLS is reduced at -10% ?Right?Ventricle: Right ventricle size is normal. Normal systolic function. RVFWLS is -27% ?Left?Atrium: Left atrium is severely dilated. Left atrium volume index is 69.7 mL/m2. ?LA Strain is 12% Small ammount of bubbles crossing within 5 beats suggestive of small cardiac shunt. ?Aorta: Mildly enlarged annulus, measures 3.5 cm and index 2.1 cm/m2 ?Pericardium: Small pericardial effusion present. Left VentricleLeft ventricle size is normal. Mildly increased wall thickness. Mild global hypokinesis present. Mildly reduced systolic function with a visually estimated EF of 40 - 45%. There is grade 1 diastolic dysfunction. GLS is reduced at -10%Right VentricleRight ventricle size is normal. Normal systolic function. RVFWLS is -27%Left AtriumLeft atrium is severely dilated. Left atrium volume index is 69.7 mL/m2. LA Strain is 12% Small ammount of bubbles crossing within 5 beats suggestive of small cardiac shunt.Right AtriumRight atrium size is normal.IVC/SVCIVC was not well visualized.Mitral ValveSevere posterior mitral annular calcification. Mild transvalvular regurgitation. No stenosis.Tricuspid ValveTricuspid valve structure is normal. Trace transvalvular regurgitation. Insufficient tricuspid regurgitation jet to estimate RVSP . No stenosis.Aortic ValveAortic valve opens well. Trace transvalvular regurgitation. No hemodynamically significant .Pulmonic ValveValve structure is normal. Trace transvalvular regurgitation. No stenosis.Ascending AortaMildly enlarged annulus, measures 3.5 cm and index 2.1 cm/c1NlvcxnwjqwvAfpnv pericardial effusion present.Study DetailsStudy quality was adequate. A complete echocardiogram was performed using 2D, color flow Doppler, spectral Doppler and strain. The apical, parasternal and subcostal views were obtained. Saline contrast was performed. [facility] Protocol - Transthoracic echo (TTE) 2024-01-27 21:03:41* Test Item Value Reference Range Interpretation Comme nts Height (test code = 4197711582) 66 in Weight (test code = 2568416877) 121 lbs Systolic BP (test code = 3693146313) 190 mmHg Diastolic BP (test code = 3733470421) 82 mmHg Heart Rate (test code = 4057900575) 55 bpm LV GLS Endo Peak A2C () (test code = 8759898830) -9.60 % LV GLS Endo Peak A3C () (test code = 8286507088) -8.80 % LV GLS Endo Peak A4C () (test code = 2123035864) -11.90 % LV GLS Endo Peak Avg () (test code = 6802799737) -10.10 % BSA (test code = 1791914879) 1.62 m2 Ao root diam (test code = 8953811400) 3.30 cm Aortic root (test code = 6139993127) 3.3 cm Ao root annulus (test code = 2567865440) 3.3 cm LA size (test code = 6244703573) 5.0 cm LVIDD (test code = 2717968895) 4.60 cm Left Ventricular End Diastolic Volume by Teichholz Method (test code = 0563498) 98.5 mL IVS (test code = 6882555773) 0.98 cm Interventricular Septum Diastolic Thickness by 2D (test code = 6222401) 0.98 cm LVPWD (test code = 2607734668) 0.96 cm PW (test code = 6110217551) 0.96 cm 0.6-1.1 EF(Teich) (test code = 3546510384) 52.00 % LVIDS (test code = 7567022997) 3.40 cm Left Ventricular End Systolic Volume by Teichholz Method (test code = 7138631) 47.3 mL FS (test code = 6081773846) 27 % EF - 2D (test code = 05983983) 52.00 % LVOT diameter (test code = 2672012337) 2.17 cm LVOT area (test code = 5728489244) 3.70 cm2 MV Prop V (test code = 7791975926) 32.40 cm/s MV Peak E Esperanza (test code = 6167995356) 62.4 cm/s MV Peak A Esperanza (test code = 4702663031) 128.5 cm/s E/A ratio (test code = 4731226093) 0.49 ratio E wave decelartion time (test code = 5843679013) 0.51 s LAV(MOD-sp4) (test code = 4800953318) 113.20 mL Aortic valve mean velocity (test code = 2574719850) 97.5 cm/s Ao peak esperanza (test code = 5073094640) 144.5 cm/s Ao VTI (test code = 4099721258) 30.6 cm Ao max PG (test code = 4837533557) 8.30 mm[Hg] AV peak gradient (test code = 8661725410) 8.3 mmHg AV mean gradient (test code = 5732327000) 4.2 mmHg LVOT stroke volume (test code = 2203658587) 81.20 cm3 LVOT peak esperanza (test code = 2746971546) 94.7 cm/s LVOT mn grad (test code = 9204937737) 1.7 mmHg AV LVOT peak gradient (test code = 0143521837) 3.6 mmHg LVOT peak VTI (test code = 6523268499) 21.9 cm AV area by cont VTI (test code = 5942694001) 2.7 cm2 AV area peak esperanza (test code = 1064661453) 2.4 cm2 LV V1 mean (test code = 6703766517) 61.50 cm/s AV valve area (test code = 6050242240) 2.70 cm2 Tapse (test code = 2978751771) 2.20 cm LA Volume Index (BP) (test code = 0465435778) 69.7 mL/m2 LA volume (BP) (test code = 3932695964) 112.7 mL LAV(MOD-sp2) (test code = 5901223453) 112.00 mL MV mean gradient (test code = 1217663704) 2.47 mmHg MV peak gradient (test code = 3570517148) 8.8 mmHg MV pk esperanza (test code = 4659313938) 148.0 cm/s MV valve area by continuity eq (test code = 6501718014) 2.13 cm2 MV VTI (test code = 6346168049) 38.2 cm MV V2 mean (test code = 1392001789) 72.60 cm/s MV stenosis pressure 1/2 time (test code = 0590127339) 117.1 ms Radiology Study observation (narrative) (test code = 65470-7) JUSTIN (test code = JUSTIN) ?Left?Ventricle: Left ventricle size is normal. Mildly increased wall thickness. Mild global hypokinesis present. Mildly reduced systolic function with a visually estimated EF of 40 - 45%. There is grade 1 diastolic dysfunction. GLS is reduced at -10% ?Right?Ventricle: Right ventricle size is normal. Normal systolic function. RVFWLS is -27% ?Left?Atrium: Left atrium is severely dilated. Left atrium volume index is 69.7 mL/m2. ?LA Strain is 12% Small ammount of bubbles crossing within 5 beats suggestive of small cardiac shunt. ?Aorta: Mildly enlarged annulus, measures 3.5 cm and index 2.1 cm/m2 ?Pericardium: Small pericardial effusion present. Left VentricleLeft ventricle size is normal. Mildly increased wall thickness. Mild global hypokinesis present. Mildly reduced systolic function with a visually estimated EF of 40 - 45%. There is grade 1 diastolic dysfunction. GLS is reduced at -10%Right VentricleRight ventricle size is normal. Normal systolic function. RVFWLS is -27%Left AtriumLeft atrium is severely dilated. Left atrium volume index is 69.7 mL/m2. LA Strain is 12% Small ammount of bubbles crossing within 5 beats suggestive of small cardiac shunt.Right AtriumRight atrium size is normal.IVC/SVCIVC was not well visualized.Mitral ValveSevere posterior mitral annular calcification. Mild transvalvular regurgitation. No stenosis.Tricuspid ValveTricuspid valve structure is normal. Trace transvalvular regurgitation. Insufficient tricuspid regurgitation jet to estimate RVSP . No stenosis.Aortic ValveAortic valve opens well. Trace transvalvular regurgitation. No hemodynamically significant .Pulmonic ValveValve structure is normal. Trace transvalvular regurgitation. No stenosis.Ascending AortaMildly enlarged annulus, measures 3.5 cm and index 2.1 cm/e8ZicnarkxovtHluxe pericardial effusion present.Study DetailsStudy quality was adequate. A complete echocardiogram was performed using 2D, color flow Doppler, spectral Doppler and strain. The apical, parasternal and subcostal views were obtained. Saline contrast was performed. [facility] GLUCOSE (AUTOMATED)2024-01-27 16:42:05* Test Item Value Reference Range Interpretation Comme [facility] POCT GLU (test code = 7246672226) 126 mg/dL 70-110 H Lab Interpretation (test cod e = 27998-7) Abnormal [facility] GLUCOSE (AUTOMATED)2024-01-27 16:42:05* Test Item Value Reference Range Interpretation Comme [facility] POCT GLU (test code = 1219534355) 126 mg/dL 70-110 H Lab Interpretation (test cod e = 86267-2) Abnormal [facility] ACUTE STROKE ANGIOGRAM [id number] 15:37:05CT STROKE ANGIOGRAM HEAD, CT STROKE PERFUSION W CONTRAST, CT STROKEANGIOGRAM NECK HISTORY: 79 years-old; Female; Neuro deficit, acute, stroke suspected Rad:please obtain POCT creatinine prior to CTA head/neck TECHNIQUE: CTA of the head and neck with coronal, sagittal reformats, andMIPS reconstructio n was performed. COMPARISON: ?None FINDINGS: CTA NECK: Aortic arch and arch vessel origins: Standard three- vessel aortic arch. The ostia of the great neck vessels are free of significant stenosis. Innominate and subclavian arteries: innominate and subclavian arteries arepatent with normal course. Common and internal cervical carotids: Calcified and noncalcifiedatherosclerotic of the bilateral common carotid /carotid bulbs resulting inmild to stenosis bilaterally. Tortuosity and beading of the mid bilateralcervical ICA represent FMD. Vertebral arteries: the vertebral arteries originate normally from thesubclavian arteries and are patent along their course. Right vertebralartery is dominant.CTA HEAD: Bilateral intradural vertebral arteries are patent, right vertebral arteryis dominant. Basilar artery is patent without stenosis. The superiorcerebellar arteries are unremarkable. The posterior cerebral arteries areunremarkable. 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 Bilateral internal carotid arteries are patent. Atherosclerosis of thecarotid siphon without significant stenosis. The anterior and right middlecerebral arteries are unremarkable. There chandrakant 5 mm filling defect involving the mid aspect of the left M1 segment(7:149) with reconstitution distally. An anterior communicating artery isvisualized. The dural venous sinuses are patent. CT PERFUSION: Ischemic penumbra involving the left of ?MCA territory. Core volume (CBF < 30%) 2 ?mL, territory at risk (Transit time > 6.0 s) 64mL, with mismatch volume 62 mL, and a mismatch ratio of 32.[facility] [id number] 15:37:05CT STROKE ANGIOGRAM HEAD, CT STROKE PERFUSION W CONTRAST, CT STROKEANGIOGRAM NECK HISTORY: 79 years-old; Female; Neuro deficit, acute, stroke suspected Rad:please obtain POCT creatinine prior to CTA head/neck TECHNIQUE: CTA of the head and neck with coronal, sagittal reformats, andMIPS reconstructio n was performed. COMPARISON: ?None FINDINGS: CTA NECK: Aortic arch and arch vessel origins: Standard three- vessel aortic arch. The ostia of the great neck vessels are free of significant stenosis. Innominate and subclavian arteries: innominate and subclavian arteries arepatent with normal course. Common and internal cervical carotids: Calcified and noncalcifiedatherosclerotic of the bilateral common carotid /carotid bulbs resulting inmild to stenosis bilaterally. Tortuosity and beading of the mid bilateralcervical ICA represent FMD. Vertebral arteries: the vertebral arteries originate normally from thesubclavian arteries and are patent along their course. Right vertebralartery is dominant.CTA HEAD: Bilateral intradural vertebral arteries are patent, right vertebral arteryis dominant. Basilar artery is patent without stenosis. The superiorcerebellar arteries are unremarkable. The posterior cerebral arteries areunremarkable. 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 Bilateral internal carotid arteries are patent. Atherosclerosis of thecarotid siphon without significant stenosis. The anterior and right middlecerebral arteries are unremarkable. There chandrakant 5 mm filling defect involving the mid aspect of the left M1 segment(7:149) with reconstitution distally. An anterior communicating artery isvisualized. The dural venous sinuses are patent. CT PERFUSION: Ischemic penumbra involving the left of ?MCA territory. Core volume (CBF < 30%) 2 ?mL, territory at risk (Transit time > 6.0 s) 64mL, with mismatch volume 62 mL, and a mismatch ratio of 32.[facility] [id number] 15:37:05CT STROKE ANGIOGRAM HEAD, CT STROKE PERFUSION W CONTRAST, CT STROKEANGIOGRAM NECK HISTORY: 79 years-old; Female; Neuro deficit, acute, stroke suspected Rad:please obtain POCT creatinine prior to CTA head/neck TECHNIQUE: CTA of the head and neck with coronal, sagittal reformats, andMIPS reconstructio n was performed. COMPARISON: ?None FINDINGS: CTA NECK: Aortic arch and arch vessel origins: Standard three- vessel aortic arch. The ostia of the great neck vessels are free of significant stenosis. Innominate and subclavian arteries: innominate and subclavian arteries arepatent with normal course. Common and internal cervical carotids: Calcified and noncalcifiedatherosclerotic of the bilateral common carotid /carotid bulbs resulting inmild to stenosis bilaterally. Tortuosity and beading of the mid bilateralcervical ICA represent FMD. Vertebral arteries: the vertebral arteries originate normally from thesubclavian arteries and are patent along their course. Right vertebralartery is dominant.CTA HEAD: Bilateral intradural vertebral arteries are patent, right vertebral arteryis dominant. Basilar artery is patent without stenosis. The superiorcerebellar arteries are unremarkable. The posterior cerebral arteries areunremarkable. 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 Bilateral internal carotid arteries are patent. Atherosclerosis of thecarotid siphon without significant stenosis. The anterior and right middlecerebral arteries are unremarkable. There chandrakant 5 mm filling defect involving the mid aspect of the left M1 segment(7:149) with reconstitution distally. An anterior communicating artery isvisualized. The dural venous sinuses are patent. CT PERFUSION: Ischemic penumbra involving the left of ?MCA territory. Core volume (CBF < 30%) 2 ?mL, territory at risk (Transit time > 6.0 s) 64mL, with mismatch volume 62 mL, and a mismatch ratio of 32.[facility] [id number] 15:37:05CT STROKE ANGIOGRAM HEAD, CT STROKE PERFUSION W CONTRAST, CT STROKEANGIOGRAM NECK HISTORY: 79 years-old; Female; Neuro deficit, acute, stroke suspected Rad:please obtain POCT creatinine prior to CTA head/neck TECHNIQUE: CTA of the head and neck with coronal, sagittal reformats, andMIPS reconstructio n was performed. COMPARISON: ?None FINDINGS: CTA NECK: Aortic arch and arch vessel origins: Standard three- vessel aortic arch. The ostia of the great neck vessels are free of significant stenosis. Innominate and subclavian arteries: innominate and subclavian arteries arepatent with normal course. Common and internal cervical carotids: Calcified and noncalcifiedatherosclerotic of the bilateral common carotid /carotid bulbs resulting inmild to stenosis bilaterally. Tortuosity and beading of the mid bilateralcervical ICA represent FMD. Vertebral arteries: the vertebral arteries originate normally from thesubclavian arteries and are patent along their course. Right vertebralartery is dominant.CTA HEAD: Bilateral intradural vertebral arteries are patent, right vertebral arteryis dominant. Basilar artery is patent without stenosis. The superiorcerebellar arteries are unremarkable. The posterior cerebral arteries areunremarkable. 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 Bilateral internal carotid arteries are patent. Atherosclerosis of thecarotid siphon without significant stenosis. The anterior and right middlecerebral arteries are unremarkable. There chandrakant 5 mm filling defect involving the mid aspect of the left M1 segment(7:149) with reconstitution distally. An anterior communicating artery isvisualized. The dural venous sinuses are patent. CT PERFUSION: Ischemic penumbra involving the left of ?MCA territory. Core volume (CBF < 30%) 2 ?mL, territory at risk (Transit time > 6.0 s) 64mL, with mismatch volume 62 mL, and a mismatch ratio of 32.[facility] [id number] 15:37:05CT STROKE ANGIOGRAM HEAD, CT STROKE PERFUSION W CONTRAST, CT STROKEANGIOGRAM NECK HISTORY: 79 years-old; Female; Neuro deficit, acute, stroke suspected Rad:please obtain POCT creatinine prior to CTA head/neck TECHNIQUE: CTA of the head and neck with coronal, sagittal reformats, andMIPS reconstructio n was performed. COMPARISON: ?None FINDINGS: CTA NECK: Aortic arch and arch vessel origins: Standard three- vessel aortic arch. The ostia of the great neck vessels are free of significant stenosis. Innominate and subclavian arteries: innominate and subclavian arteries arepatent with normal course. Common and internal cervical carotids: Calcified and noncalcifiedatherosclerotic of the bilateral common carotid /carotid bulbs resulting inmild to stenosis bilaterally. Tortuosity and beading of the mid bilateralcervical ICA represent FMD. Vertebral arteries: the vertebral arteries originate normally from thesubclavian arteries and are patent along their course. Right vertebralartery is dominant.CTA HEAD: Bilateral intradural vertebral arteries are patent, right vertebral arteryis dominant. Basilar artery is patent without stenosis. The superiorcerebellar arteries are unremarkable. The posterior cerebral arteries areunremarkable. 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 Bilateral internal carotid arteries are patent. Atherosclerosis of thecarotid siphon without significant stenosis. The anterior and right middlecerebral arteries are unremarkable. There chandrakant 5 mm filling defect involving the mid aspect of the left M1 segment(7:149) with reconstitution distally. An anterior communicating artery isvisualized. The dural venous sinuses are patent. CT PERFUSION: Ischemic penumbra involving the left of ?MCA territory. Core volume (CBF < 30%) 2 ?mL, territory at risk (Transit time > 6.0 s) 64mL, with mismatch volume 62 mL, and a mismatch ratio of 32.[facility] W [id number] 15:37:05CT STROKE ANGIOGRAM HEAD, CT STROKE PERFUSION W CONTRAST, CT STROKEANGIOGRAM NECK HISTORY: 79 years-old; Female; Neuro deficit, acute, stroke suspected Rad:please obtain POCT creatinine prior to CTA head/neck TECHNIQUE: CTA of the head and neck with coronal, sagittal reformats, andMIPS reconstructio n was performed. COMPARISON: ?None FINDINGS: CTA NECK: Aortic arch and arch vessel origins: Standard three- vessel aortic arch. The ostia of the great neck vessels are free of significant stenosis. Innominate and subclavian arteries: innominate and subclavian arteries arepatent with normal course. Common and internal cervical carotids: Calcified and noncalcifiedatherosclerotic of the bilateral common carotid /carotid bulbs resulting inmild to stenosis bilaterally. Tortuosity and beading of the mid bilateralcervical ICA represent FMD. Vertebral arteries: the vertebral arteries originate normally from thesubclavian arteries and are patent along their course. Right vertebralartery is dominant.CTA HEAD: Bilateral intradural vertebral arteries are patent, right vertebral arteryis dominant. Basilar artery is patent without stenosis. The superiorcerebellar arteries are unremarkable. The posterior cerebral arteries areunremarkable. 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 Bilateral internal carotid arteries are patent. Atherosclerosis of thecarotid siphon without significant stenosis. The anterior and right middlecerebral arteries are unremarkable. There chandrakant 5 mm filling defect involving the mid aspect of the left M1 segment(7:149) with reconstitution distally. An anterior communicating artery isvisualized. The dural venous sinuses are patent. CT PERFUSION: Ischemic penumbra involving the left of ?MCA territory. Core volume (CBF < 30%) 2 ?mL, territory at risk (Transit time > 6.0 s) 64mL, with mismatch volume 62 mL, and a mismatch ratio of 32.[facility] GLUCOSE (AUTOMATED)2024-01-27 12:53:36* Test Item Value Reference Range Interpretation Comme [facility] POCT GLU (test code = 6486624748) 144 mg/dL 70-110 H Lab Interpretation (test cod e = 11041-0) Abnormal [facility] GLUCOSE (AUTOMATED)2024-01-27 12:53:36* Test Item Value Reference Range Interpretation Comme nts POCT GLU (test code = 5199299445) 144 mg/dL 70-110 H Lab Interpretation (test cod e = 33349-3) Abnormal [facility] ACUTE STROKE HEAD WO [id number] 12:25:01CT STROKE HEAD WO CONTRAST HISTORY: 79 years-old Female; Neuro deficit, acute, stroke suspected COMPARISON: 03/03/2022 TECHNIQUE: Axial CT of the head was performed. Coronal and sagittalreformatted images were generated. FINDINGS: The ventricles and cerebral sulci are normal in caliber and configuration.No hydrocephalus, midline shift or pathological extra-axial fluidcollection is present. The basal cisterns are unremarkable. There is no acute intracranial hemorrhage or significant mass effect. Scattered periventricular and deep white matter hypodensities, nonspecificlikely sequela of chronic microvascular ischemic changes. ?Hyperdense leftMCA suspected (5:21). ?The culver-white matter differentiation is otherwisepreserved. The mastoid air cells and paranasal air sinuses are clear. The calvariumand central skull base are unremarkable. [facility] WO [id number] 12:25:01CT STROKE HEAD WO CONTRAST HISTORY: 79 years-old Female; Neuro deficit, acute, stroke suspected COMPARISON: 03/03/2022 TECHNIQUE: Axial CT of the head was performed. Coronal and sagittalreformatted images were generated. FINDINGS: The ventricles and cerebral sulci are normal in caliber and configuration.No hydrocephalus, midline shift or pathological extra-axial fluidcollection is present. The basal cisterns are unremarkable. There is no acute intracranial hemorrhage or significant mass effect. Scattered periventricular and deep white matter hypodensities, nonspecificlikely sequela of chronic microvascular ischemic changes. ?Hyperdense leftMCA suspected (5:21). ?The culver-white matter differentiation is otherwisepreserved. The mastoid air cells and paranasal air sinuses are clear. The calvariumand central skull base are unremarkable. [facility] VW [id number] 11:23:07EXAM: XR HIPS 2 VW RIGHT HISTORY: fall/trauma COMPARISON: None FINDINGS:Radiographs of the right hip demonstrate severe osteopenia. Opacificationof the bladder related to contrast. Surgical clips areseen over the rightupper quadrant. An overriding right femoral neck fracture is seen with at least 2 cmproximal distraction of the distal femoral fracture fragment. There is mildanterior fracture apex angulation seen on the cross table lateral view. Arterial calcifications are present.[facility] VW [id number] 11:23:07 EXAM: XR HIPS 2 VW RIGHT HISTORY: fall/trauma COMPARISON: None FINDINGS:Radiographs of the right hip demonstrate severe osteopenia. Opacificationof the bladder related to contrast. Surgical clips areseen over the rightupper quadrant. An overriding right femoral neck fracture is seen with at least 2 cmproximal distraction of the distal femoral fracture fragment. There is mildanterior fracture apex angulation seen on the cross table lateral view. Arterial calcifications are present.[facility] Glycosyated Hemoglobin (A1C)2024-01-27 08:57:43* Test Item Value Reference Range Interpretation Comme nts HGB A1C (test code = 4548-4) 5.0 % 4.0-5.7 JUSTIN (test code = JUSTIN) Reference RangesNormal: <5.7%Prediabetes: 5.7 - 6.4%Diabetes: > 6.5% Lab Interpretation (test code = 78582-1) Normal [facility] (A1C)2024-01-27 08:57:43* Test Item Value Reference Range Interpretation Comme nts HGB A1C (test code = 4548-4) 5.0 % 4.0-5.7 JUSTIN (test code = JUSTIN) Reference RangesNormal: <5.7%Prediabetes: 5.7 - 6.4%Diabetes: > 6.5% Lab Interpretation (test code = 67036-6) Normal [facility] [id number] 08:46:53 Examination:Diagnostic cerebral angiogram Date of procedure 01/27/2024 Operators:Dr. John Magaña Indication: Acute stroke Consent: The patient was given a full and complete explanation of the procedureincluding the risks, benefits, and possible complications which include butare not limited to vessel injury, vessel rupture, stroke, infection, comaand , and may include additional procedures. ?Patient understood andwished to proceed. Anesthesia: Conscious sedation and local infiltration of the right wrist usingsubcutaneous and subcuticular injection of 1% lidocaine. Procedure: The patient wasbrought into the biplane high resolution angiography suiteand placed supine on the table. ?After prepping and draping both the rightradial femoral regions in the usual sterile fashion, a 21-gauge ED01 micropuncture needle was used to puncture the right radial artery and afterbrisk return of ?arterial blood, a 0.018 inch wire was threaded via theneedle, after the needle was withdrawn a 4-Palauan vascular sheath was thenadvanced over the wire and connected to a pressurized arterial saline baginfusing 4 units heparin/ML. A 4-Palauan Rand 2 catheter, ?was then advanced over a 0.035 inch TerumoGlidewire and the catheter was used to select the following arteriesfollowed by biplane image acquisition of the same: Vessels catheterized: - Right Common Carotid Artery ?- Right Subclavian Artery (Yolanda ction of the vessel followed by single imageacquisition of the same),- Right Vertebral Artery - Left Common Carotid Artery - Left Subclavian Artery (Selection of the vessel followed by single imageacquisition of the same),- Left Vertebral Artery Vessels imaged: Right common carotid artery, cervical, oblique AP, lateralRight internal carotid artery, intracranial, AP, lateralRight internal carotid artery, intracranial, biplane obliqueRight external carotid artery, intracranial, biplane, AP, lateralLeft common carotid artery, cervical, oblique AP and lateralLeft internal carotid artery, intracranial, AP, lateralLeft internal carotid artery, intracranial, biplane obliqueLeft external carotid artery, intracranial, biplane, AP, lateralRight vertebral artery, intracranial, AP, lateralLeft vertebral artery, intracranial, AP, lateral 3-D rotational angiography acquisitions were performed of the rightvertebral artery. ?These 3-D acquisitions were then transferred,reconstructed and analyzed on in dependent computer workstation. ? The catheter was removed from the patient and images were reviewed. The right radial artery arterial sheath was then removed and wristhemostasis was achieved by compression band. Patient tolerated the procedure well without complications. Findings were discussed with the patient, his family and the referringphysicians. Findings: - Right Common Carotid Artery: Carotid bifurcation is widely patent. There is no carotid stenosis.Cervical ICA is normal. - Right Internal Carotid Artery: Normal appearance of the petrous, cavernous and supraclinoid internalcarotid arteries. The carotid terminus, anterior and middle cerebralarteries are normal. Anterior communicating artery is demonstrated well andis normal in appearance. Right External Carotid Artery: Normal anatomy and no evidence of arteriovenous shunting or duralfistulization. - Left Common Carotid Artery: Carotid bifurcation is normal. No evidence of carotid stenosis. CervicalICA is normal. - Left Internal Carotid Artery: Normal appearance of the petrous, cavernous and supraclinoid internalcarotid arteries. There is a distal M4 occlusion in a left temporal branch.The previously seen left M1 thrombus is resolved. - Left External Carotid Artery: Normal anatomy and no evidence of arteriovenous shuntingor duralfistulization. - Right Subclavian Artery: Normal anatomy with no evidence of stenosis or dissection. ?The origin ofthe right vertebral artery is normal without stenosis. - Right Vertebral Sydnie ry: Normal course in the cervical segment. Intracranial images do notdemonstrate any evidence of intracranial aneurysm, arteriovenous shuntingor intracranial stenosis. Slight dilatation of the left SCA origin. - Left Subclavian Artery: Normal anatomy with no evidence of stenosis or dissection. ?Theorigin ofthe left vertebral artery is normal, without stenosis. - Left Vertebral Artery: Normal course in the cervical segment. Intracranial images do not show anyevidence of intracranial aneurysm, arteriovenous shunting or intracranialstenosis. Slight dilatation of the left SCA origin.[facility] [id number] 08:46:53Examination:Diagnostic cerebral angiogram Date of procedure 01/27/2024 Operators:Dr. John Magaña Indication: Acute stroke Consent: The patient was given a full and complete explanation of the procedureincluding the risks, benefits, and possible complications which include butare not limited to vessel injury, vessel rupture, stroke, infection, comaand , and may include additional procedures. ?Patient understood andwished to proceed. Anesthesia: Conscious sedation and local infiltration of the right wrist usingsubcutaneous and subcuticular injection of 1% lidocaine. Procedure: The patient wasbrought into the biplane high resolution angiography suiteand placed supine on the table. ?After prepping and draping both the rightradial femoral regions in the usual sterile fashion, a 21-gauge ED01 micropuncture needle was used to puncture the right radial artery and afterbrisk return of ?arterial blood, a 0.018 inch wire was threaded via theneedle, after the needle was withdrawn a 4-Palauan vascular sheath was thenadvanced over the wire and connected to a pressurized arterial saline baginfusing 4 units heparin/ML. A 4- [place]auan [employer] 2 catheter, ?was then advanced over a 0.035 inch TerumoGlidewire and the catheter was used to select the following arteriesfollowed by biplane image acquisition of the same: Vessels catheterized: - Right Common Carotid Artery ?- Right Subclavian Artery (Selection of the vessel followed by single imageacquisition of the same),- Right Vertebral Artery - Left Common Carotid Artery - Left Subclavian Artery (Selection of the vessel followed by single imageacquisition of the same),- Left Vertebral Artery Vessels imaged: Right common carotid artery, cervical, oblique AP, lateralRight internal carotid artery, intracranial, AP, lateralRight internal carotid artery, intracranial, biplane obliqueRight external carotid artery, intracranial, biplane, AP, latera lLeft common carotid artery, cervical, oblique AP and lateralLeft internal carotid artery, intracranial, AP, lateralLeft internal carotid artery, intracranial, biplane obliqueLeft external carotid artery, intracranial, biplane, AP, lateralRight vertebral artery, intracranial, AP, lateralLeft vertebral artery, intracranial, AP, lateral 3-D rotational angiography acquisitions were performed of the rightvertebral artery. ?These 3-D acquisitions were then transferred,reconstructed and analyzed on independent computer workstation. ? The catheter was removed from the patient and images were reviewed. The right radial artery arterial sheath was then removed and wristhemostasis was achieved by compression band. Patient tolerated the procedure well without complications. Findings were discussed with the patient, his family and the referringphysicians. Findings: - Right Common Carotid Artery: Carotid bifurcation is widely patent. There is no carotid stenosis.Cervical ICA is normal. - Right Internal Carotid Artery: Normal appearance of the petrous, cavernous and supraclinoid internalcarotid arteries. The carotid terminus, anterior and middle cerebralarteries are normal. Anterior communicating artery is demonstrated well andis normal in appearance. Right External Carotid Artery: Normal anatomy and no evidence of arteriovenous shunting or duralfistulization. - Left Common Carotid Artery: Carotid bifurcation is normal. No evidence of carotid stenosis. CervicalICA is normal. - Left Internal Carotid Artery: Normal appearance of the petrous, cavernous and supraclinoid internalcarotid arteries. There is a distal M4 occlusion in a left temporal branch.The previously seen left M1 thrombus is resolved. - Left External Carotid Artery: Normal anatomy and no evidence of arteriovenous shunting or duralfistulization. - Right Subclavian Artery: Normal anatomy with no evidence of stenosis or dissection. ?The origin ofthe right vertebral artery is normal without stenosis. - Right Vertebral Art jewel: Normal course in the cervical segment. Intracranial images do notdemonstrate any evidence of intracranial aneurysm, arteriovenous shuntingor intracranial stenosis. Slight dilatation of the left SCA origin. - Left Subclavian Artery: Normal anatomy with no evidence of stenosis or dissection. ?The origin ofthe left vertebral artery is normal, without stenosis. - Left Vertebral Artery: Normal course in the cervical segment. Intracranial images do not show anyevidence of intracranial aneurysm, arteriovenous shunting or intracranialstenosis. Slight dilatation of the left SCA origin.[facility] Lipd Panel (64716)(TOTAL CHOLESTEROL, TRIGLYCERIDES, HDL)2024-01-27 08:30:32* Test Item Value Reference Range Interpretation Comme nts CHOL (test code = 9133784448) 118 mg/dL 120-200 L HDL (test code = 0062248409) 47 mg/dL >=50 L HDLC RATIO (test code = 7095678744) 2.5 <=4.5 TRIG (test code = 6895940432) 190 mg/dL 30-170 H LDL CHOL (test code = 21611-3) 33 mg/dL <=160 VLDL (test code = 7442865660) 38 mg/dL 5-60 Lab Interpretation (test cod e = 35804-2) Abnormal [facility] Lipd Panel (73959)(TOTAL CHOLESTEROL, TRIGLYCERIDES, HDL)2024-01-27 08:30:32* Test Item Value Reference Range Interpretation Comme nts CHOL (test code = 7141040977) 118 mg/dL 120-200 L HDL (test code = 2090914643) 47 mg/dL >=50 L HDLC RATIO (test code = 1240068390) 2.5 <=4.5 TRIG (test code = 9685210321) 190 mg/dL 30-170 H LDL CHOL (test code = 42861-4) 33 mg/dL <=160 VLDL (test code = 8105952039) 38 mg/dL 5-60 Lab Interpretation (test cod e = 56587-7) Abnormal [facility] INVESTIGATION [id number] 07:24:28* Test Item Value Reference Range Interpretation Comme nts ABO & RH (test code = 20) O Positive Performed at [facility] Laboratory Services - [facility] Blood [address] Free: [phone] No. [id number] [facility] INVESTIGATION [id number] 07:24:28* Test Item Value Reference Range Interpretation Comme nts ABO & RH (test code = 20) O Positive Performed at [facility] Laboratory Services [facility] Blood [place] [address]Toll Free: [phone] No. [id number] [facility] [id number] 06:59:07 Ordering physician: LEYLA MERAZ INDICATION: Blunt chest trauma COMPARISON: Chest dated 01/27/2024 TECHNIQUE: Axial images of the chest were performed without administrationof intravenous contrast. Images were reformatted in the coronal andsagittal plane. CT scan was performed according to ALARA (as low asreasonably achievable) policy. FINDINGS: The visualized thyroid gland is within normal limits. No thoracicaortic aneurysm is appreciated. There is calcific plaque in the transverseand descending thoracic aorta. The heart is enlarged without pericardialeffusion. There is prominent coronary art eriosclerosis and mitral valvecalcification. There are calcified right hilar lymph nodes. No acute pulmonary process is appreciated. There is mild centrilobularemphysema. There is a calcified granuloma in the superior segment of theright lower lobe. There is age indeterminate superior endplate compr essiondeformity of T8 (series 602, image 66).[facility] CT THORAX WO [id number] 06:59:07Ordering physician: LEYLA MERAZ INDICATION: Blunt chest trauma COMPARISON: Chest dated 01/27/2024 TECHNIQUE: Axial images of the chest were performed without administrationof intravenous contrast. Images were reformatted in the coronal andsagittal plane. CT scan was performed according to ALARA (as low asreasonably achievable) policy. FINDINGS: The visualized thyroid gland is within normal limits. No thoracicaortic aneurysm is appreciated. There is calcific plaque in the transverseand descending thoracic aorta. The heart is enlarged without pericardialeffusion. There is prominent coronary arteriosclerosis and mitral valvecalcification. There are calcified right hilar lymph nodes. No acute pulmonary process is appreciated. There is mild centrilobularemphysema. There is a calcified granuloma in the superior segment of theright lower lobe. There is age indeterminate superior endplate compressiondeformity of T8 (series 602, image 66).[facility] [id number] 06:50:39* Test Item Value Reference Range Interpretation Comme nts NT-proBNP (test code = 66957-5) 3160 pg/mL <=125 H JUSTIN (test code = JUSTIN) Positive: Heart Failure Likely Lab Interpretation (test code = 23865-3) Abnormal [facility] [id number] 06:50:39* Test Item Value Reference Range Interpretation Comme nts NT-proBNP (test code = 11523-0) 3160 pg/mL <=125 H JUSTIN (test code = JUSTIN) Positive: Heart Failure Likely Lab Interpretation (test code = 88298-8) Abnormal [facility] [id number] 06:48:56Ordering physician: LEYLA MERAZ Indication: Blunt abdominal trauma COMPARISON: CT of the abdomen and pelvis dated 01/22/2024 TECHNIQUE: Axial images of the abdomen and pelvis were performed withoutthe administration of intravenous contrast material. Images werereformatted in the coronal and sagitta l plane. CT scan was performedaccording to ALARA (as low as reasonably achievable) policy. FINDINGS: There is mild dependent atelectasis in the lung bases. The heartis enlarged, with prominent mitralvalve calcification. There is stablecentral pneumobilia in the liver. The patient is status postchol ecystectomy. There is a calcified granuloma in the spleen. There arebilateral adrenal nodules, benign by density. There is stable diffuseprominence of the main pancreatic duct. There is excreted contrast materialin the kidneys and urinary bladder bilaterally, without hydronephrosis.There is marked diffuse atherosclerotic calcification of the aorta withoutsignificant aneurysmal dilatation. There is severe stenosis in the rightcommon iliac artery related to calcific plaque. There is no free fluidin the pelvis. There is a stable cystic focus in theright adnexa, measuring 5.2 cm (series 5, image86). There is no bowelobstruction. There are scattered colonic diverticula without evidence foracute diverticulitis. The appendix is not separately identified. There is asubcapital fracture of right femur (series 5, image 98). There isdextroconvex scoliosis of the lumbar spine. The urinary bladder ismoderately distended. [facility] [id number] 06:48:56Ordering physician: LEYLA MERAZ Indication: Blunt abdominal trauma COMPARISON: CT of the abdomen and pelvis dated 01/22/2024 TECHNIQUE: Axial images of the abdomen and pelvis were performed withoutthe administration of intravenous contrast material. Images werereformatted in the coronal and sagitta l plane. CT scan was performedaccording to ALARA (as low as reasonably achievable) policy. FINDINGS: There is mild dependent atelectasis in the lung bases. The heartis enlarged, with prominent mitralvalve calcification. There is stablecentral pneumobilia in the liver. The patient is status postchol ecystectomy. There is a calcified granuloma in the spleen. There arebilateral adrenal nodules, benign by density. There is stable diffuseprominence of the main pancreatic duct. There is excreted contrast materialin the kidneys and urinary bladder bilaterally, without hydronephrosis.There is marked diffuse atherosclerotic calcification of the aorta withoutsignificant aneurysmal dilatation. There is severe stenosis in the rightcommon iliac artery related to calcific plaque. There is no free fluidin the pelvis. There is a stable cystic focus in theright adnexa, measuring 5.2 cm (series 5, image86). There is no bowelobstruction. There are scattered colonic diverticula without evidence foracute diverticulitis. The appendix is not separately identified. There is asubcapital fracture of right femur (series 5, image 98). There isdextroconvex scoliosis of the lumbar spine. The urinary bladder ismoderately distended. [facility] [id number] 06:24:18Exam: XR CHEST 1 VW, 01/27/2024 1:00 AM. Ordering Physician: LEYLA MERAZ. History: Pre op . Technique: One view of the chest. Comparison: Chest radiograph 04/12/2022. Findings: No focal consolidation. No pneumothorax or effusion. Cardiac enlargement,possibly technique. Gastric calcifications. No acute osseous finding onthis single view.[facility] view 2024-01-27 06:24:18Exam: XR CHEST 1 VW, 01/27/2024 1:00 AM. Ordering Physician: LEYLA MERAZ. History: Pre op . Technique: One view of the chest. Comparison: Chest radiograph 04/12/2022. Findings: No focal consolidation. No pneumothorax or effusion. Cardiac enlargement,possibly technique. Gastric calcifications. No acute osseous finding onthis single view.[facility] HospitalType [facility] Screen - ONCE [id number] 06:16:00* Test Item Value Reference Range Interpretation Comme nts IAT (test code = 1185) Negative [facility] - ONCE [id number] 06:16:00 * Test Item Value Reference Range Interpretation Comme nts IAT (test code = 1185) Negative [facility] HospitalLactic Acid Whole [id number] 06:07:47* Test Item Value Reference Range Interpretation Comme nts LACTIC ACID (test code = 1609739057) 1.72 mmol/L 0.50-2.20 Lab Interpretation (test cod e = 16619-1) Normal [facility] HospitalL[facility] Acid Whole [id number] 06:07:47* Test Item Value Reference Range Interpretation Comme nts LACTIC ACID (test code = 7536670830) 1.72 mmol/L 0.50-2.20 Lab Interpretation (test cod e = 89979-0) Normal [facility] HospitalTroponin I - Code [id number] 06:06:57* Test Item Value Reference Range Interpretation Comme nts TROPONIN I (test code = 4902837353) 0.014 ng/mL <=0.034 JUSTIN (test code = JUSTIN) Reference (Normal) Range (defined by the 99th percentile reference limit): <= 0.034 ng/mL Note: Cardiac troponin begins to rise 3-4 hours after the onset of ischemia. Repeat in 4-6 hours if the sample was drawn within 3-4 hours of the onset of the symptom and found normal. Diagnosis of myocardial injury is made with acute changes in cTn concentrations with at least one serial sample above the 99th percentile upper reference limit (URL), taken together with the patient's clinical presentation. Biotin has been reported to cause a negative bias, interpret results relative to patient's use of biotin. Lab Interpretation (test code = 33815-4) Normal [facility] HospitalTroponin I - Code [id number] 06:06:57* Test Item Value Reference Range Interpretation Comme nts TROPONIN I (test code = 0364749584) 0.014 ng/mL <=0.034 JUSTIN (test code = JUSTIN) Reference (Normal) Range (defined by the 99th percentile reference limit): <= 0.034 ng/mL Note: Cardiac troponin begins to rise 3-4 hours after the onset of ischemia. Repeat in 4-6 hours if the sample was drawn within 3-4 hours of the onset of the symptom and found normal. Diagnosis of myocardial injury is made with acute changes in cTn concentrations with at least one serial sample above the 99th percentile upper reference limit (URL), taken together with the patient's clinical presentation. Biotin has been reported to cause a negative bias, interpret results relative to patient's use of biotin. Lab Interpretation (test code = 14250-4) Normal [facility] Metabolic Panel (NA, K, CL, CO2, Glucose, BUN, Creatinine, CA) - Code [id number] 05:55:20* Test Item Value Reference Range Interpretation Comme nts NA (test code = 0785946541) 132 mmol/L 135-145 L K (test code = 9087231832) 3.5 mmol/L 3.5-5.0 CL (test code = 9473426574) 101 mmol/L 98-108 CO2 TOTAL (test code = 8539108269) 24 mmol/L 23-31 AGAP (test code = 8805162679) 7 2-16 BUN (test code = 4056417825) 14 mg/dL 7-23 GLUCOSE (test code = 1721350394) 148 mg/dL 70-110 H CREATININE (test code = 2160-0) 0.64 mg/dL 0.50-1.04 CALCIUM (test code = 8701131709) 8.4 mg/dL 8.6-10.6 L eGFR (test code = 11519-3) 91.2 mL/min/1.73m2 CKD-EPI eGFR (2020). Assuming creatinine has been stable day-to-day for at least three months, the eGFR indicates Category G1 (>= 90 mL/min/1.73 m2) Lab Interpretation (test code = 48912-4) Abnormal [facility] Metabolic Panel (NA, K, CL, CO2, Glucose, BUN, Creatinine, CA) - Code [id number] 05:55:20* Test Item Value Reference Range Interpretation Comme nts NA (test code = 0513387592) 132 mmol/L 135-145 L K (test code = 4543188487) 3.5 mmol/L 3.5-5.0 CL (test code = 2276151537) 101 mmol/L 98-108 CO2 TOTAL (test code = 1037668248) 24 mmol/L 23-31 AGAP (test code = 7303300186) 7 2-16 BUN (test code = 8957306564) 14 mg/dL 7-23 GLUCOSE (test code = 9731030064) 148 mg/dL 70-110 H CREATININE (test code = 2160-0) 0.64 mg/dL 0.50-1.04 CALCIUM (test code = 0676635418) 8.4 mg/dL 8.6-10.6 L eGFR (test code = 57405-8) 91.2 mL/min/1.73m2 CKD-EPI eGFR (2020). Assuming creatinine has been stable day-to-day for at least three months, the eGFR indicates Category G1 (>= 90 mL/min/1.73 m2) Lab Interpretation (test code = 15637-5) Abnormal [facility] HospitalProthrombin Time / INR - Code [id number] 05:53:19* Test Item Value Reference Range Interpretation Comme [facility] PROTIME PATIENT (test code = 5964-2) 10.5 10.1-12.6 INR (test code = 6301-6) 0.9 Normal INR <1.1; Warfarin Therapeutic range 2.0 to 3.0 or 2.5 to 3.5, depending upon the indications. Lab Interpretation (test code = 76546-8) Normal [facility] HospitalaPTT - Code [id number] 05:53:19* Test Item Value Reference Range Interpretation Comme [facility] APTT Patient (test code = 3173-2) 30 26-36 Lab Interpretation (test cod e = 16613-5) Normal [facility] HospitalProthrombin Time / INR - Code [id number] 05:53:19* Test Item Value Reference Range Interpretation Comme [facility] PROTIME PATIENT (test code = 5964-2) 10.5 10.1-12.6 INR (test code = 6301-6) 0.9 Normal INR <1.1; Warfarin Therapeutic range 2.0 to 3.0 or 2.5 to 3.5, depending upon the indications. Lab Interpretation (test code = 33616-2) Normal [facility]aP[facility] - Code [id number] 05:53:19* Test Item Value Reference Range Interpretation Comme nts APTT Patient (test code = 3173-2) 30 26-36 Lab Interpretation (test cod e = 39251-4) Normal [facility] without Diff - Code [id number] 05:44:16* Test Item Value Reference Range Interpretation Comme nts WBC (test code = 6690-2) 9.22 4.30-11.10 RBC (test code = 789-8) 3.45 3.93-5.25 L HGB (test code = 718-7) 10.3 g/dL 11.6-15.0 L HCT (test code = 4544-3) 30.2 % 35.7-45.2 L MCH (test code = 785-6) 29.9 pg 25.9-32.8 MCV (test code = 787-2) 87.5 fL 80.6-95.5 MCHC (test code = 786-4) 34.1 g/dL 31.6-35.1 PLT (test code = 777-3) 294 166-358 MPV (test code = 61367-0) 8.9 fL 9.5-12.9 L RDW-CV (test code = 788-0) 18.0 % 12.0-15.5 H RDW-SD (test code = 84747-4) 57.0 fL 39.0-49.9 H NRBC x10^3 (test code = 7209107016) See_Comment [Automated messa ge] The system which generated this result transmitted reference range: 10*3/?L. The reference range was not used to interpret this result as normal/abnormal. NRBC/100 WBC (test code = 5267605678) 0.0 0.0-10.0 IPF % (test code = 2388236855) Lab Interpretation (test code = 26035-6) Abnormal [facility] without Diff - Code [id number] 05:44:16* Test Item Value Reference Range Interpretation Comme nts WBC (test code = 6690-2) 9.22 4.30-11.10 RBC (test code = 789-8) 3.45 3.93-5.25 L HGB (test code = 718-7) 10.3 g/dL 11.6-15.0 L HCT (test code = 4544-3) 30.2 % 35.7-45.2 L MCH (test code = 785-6) 29.9 pg 25.9-32.8 MCV (test code = 787-2) 87.5 fL 80.6-95.5 MCHC (test code = 786-4) 34.1 g/dL 31.6-35.1 PLT (test code = 777-3) 294 166-358 MPV (test code = 47719-8) 8.9 fL 9.5-12.9 L RDW-CV (test code = 788-0) 18.0 % 12.0-15.5 H RDW-SD (test code = 30932-9) 57.0 fL 39.0-49.9 H NRBC x10^3 (test code = 3317140441) See_Comment [Automated Patient Engagement Systemsa ge] The system which generated this result transmitted reference range: 10*3/?L. The reference range was not used to interpret this result as normal/abnormal. NRBC/100 WBC (test code = 8438184879) 0.0 0.0-10.0 IPF % (test code = 2241066646) Lab Interpretation (test code = 95308-3) Abnormal [facility] GLUCOSE (AUTOMATED)2024-01-27 05:08:22* Test Item Value Reference Range Interpretation Comme nts POCT GLU (test code = 8043958992) 165 mg/dL 70-110 H Lab Interpretation (test cod e = 67445-7) Abnormal [facility] GLUCOSE (AUTOMATED)2024-01-27 05:08:22* Test Item Value Reference Range Interpretation Comme nts POCT GLU (test code = 8158811094) 165 mg/dL 70-110 H Lab Interpretation (test cod e = 45887-2) Abnormal [facility] Glucose (Age >30 Days) - Code Stroke 2024-01-27 05:08:00* Test Item Value Reference Range Interpretation Comme nts POCT Glu (age>30days) (test code = 3342) 165 mg/dL 70-110 A Lab Interpretation (test cod e = 30167-6) Abnormal [facility] Glucose (Age >30 Days) - Code Stroke 2024-01-27 05:08:00* Test Item Value Reference Range Interpretation Comme nts POCT Glu (age>30days) (test code = 3342) 165 mg/dL 70-110 A Lab Interpretation (test cod e = 03423-0) [facility]normal [facility] WO [id number] 03:24:24CT ABDOMEN PELVIS W WO CONTRAST HISTORY: ?Pancreatic duct dilation, history of duodenal/ampulla TVAs/pampullectomy. Now with weight loss Pancreas protocol COMPARISON: CT 04/05/2023 Technical quality:adequate TECHNIQUE: Multiphase CT abdomen and pelvis before and after theadministration of intraveno us contrast. Precontrast, arterial, venous, anddelayed phase images were obtained. This examinationwas performedaccording to ALARA principles FINDINGS: ?Lower Chest: There is global cardiomegaly with extensive calcifications ofthe mitral annulus and coronary artery calcifications. There are bibasil aratelectasis..Liver: Unremarkable.Gallbladder and bile ducts: Surgically absent gallbladder with mildlydilated bile ducts, likely related to postcholecystectomy state. There isunchanged benign pneumobilia.Spleen: Unremarkable.Pancreas: There is unchanged diffuse dilation of the main pancreatic ductmeasured up to 7 mm in the region of the head. No focal lesions within thepancreatic parenchyma which demonstrates normal enhancement..Adrenals: There is unchanged multilobulated right adrenal adrenal nodules,most best adenoma. There is unchanged left adrenal adenoma..Kidneys and ureters: No calculi or hydronephrosis. No suspicious lesions..The distal esophagus, stomach, and duodenum are unremarkable. The smallbowel loops are nondilated. There is no evidence of bowel obstruction.There is interval development of nonspecific fluid filled structuremeasured 3 x 2 x 5 cm adjacent to the ascending colon. There is similarappearing structure noted along the hepatic flexure, smaller in size.Predominantly left sided colonic diverticulosis.Bladder: Diffuse circumferential wall thickening.Reproductive organs: There is enlarging right adnexal cyst currentlymeasures 4.7 x 7.5 cm previously measured 4.5 x 4.2 cm..Lymph Nodes: No lymphadenopathy..Peritoneum: No free air or fluid collection..Vessels: Severe atherosclerosis of the aorta without aneurysm ordissection. The portal venous system is patent..Abdominal wall: Unremarkable.Bones: Osteopenia. There is scoliosis. There is multilevel discogenicdisease. No acute fracture or suspicious osseous lesion.. ?[facility] HospitalPOCT [id number] 21:17:22* Test Item Value Reference Range Interpretation Comme [facility] POCT Creatinine (test code = 3444421081) 0.9 mg/dL 0.5-1.1 Lab Interpretation (test cod e = 08900-2) Normal [facility] HospitalLaceration [id number] 21:02:00Joe Barrios FNP ? ? 01/18/2024 ?4:19 PMLaceration Repair Date/Time: 01/18/2024 4:02 PM Performed by: Joe Barrios FNPAuthorized by: Joe Barrios FNP ?Consent: ?Consent obtained: ?Verbal?Consent given by: ?Patient ?Risks, benefits, and alternatives were discussed: yes ? ?Risks discussed: ?Pain, infection and poor wound healing ?Alternatives discussed: ?Delayed treatmentPost-procedure details: ?Dressing: ?Antibiotic ointment and non- adherent dressing ?Procedure completion: ?Tolerated well, no immediate complicationsComments: ? 7 sutures and 8 steri strips removed in it's entirety [facility] HospitalAdrenocorticotropic Hormone (ACTH) 0 Min (prior to cosyntropin injection)2022-04-16 12:47:11* Test Item Value Reference Range Interpretation Comme [facility] ACTH (test code = 2141-0) <1.5 7.2-63.3 L INTERPRETIVE INF ORMATION: Adrenocorticotropic Hormone Reference interval based on samples collected between 7 a.m. and 10 a.m. ?No reference intervals established for p.m. collections. ?Pediatric reference values are the same as adults (Acta Paediatr Scand 1981;70:341-345). ?This assay measures intact ACTH 1-39; some types of synthetic ACTH and ACTH fragments are not detected by this assay.Performed By: [address] [place] [id number] Director: Moises Loja MD, PhD Lab Interpretation (test code = 89728-5) Abnormal [facility] (NA, K, CL, CO2, GLUCOSE, BUN, CREATININE, CA)2022-04-15 22:19:04* Test Item Value Reference Range Interpretation Comme nts NA (test code = 7673555990) 129 mmol/L 135-145 L K (test code = 4259834413) 4.6 mmol/L 3.5-5 CL (test code = 8226072158) 102 mmol/L 98-108 CO2 TOTAL (test code = 0730042651) 22 mmol/L 23-31 L AGAP (test code = 7317848464) 2-16 BUN (test code = 3912727476) 14 mg/dL 7-23 GLUCOSE (test code = 0441789736) 91 mg/dL 70-110 CREATININE (test code = 6814427910) 0.95 mg/dL 0.5-1.04 CALCIUM (test code = 9465972212) 7.6 mg/dL 8.6-10.6 L eGFR (test code = 8851235665) mL/min/1.73m2 JUSTIN (test code = JUSTIN) Association of [...] or abnormalities in imaging tests). Lab Interpretation (test code = 67512-3) Abnormal [facility] HospitalCortisol Stimulation 60 Min (post cosyntropin injection)2022-04-15 18:44:21* Test Item Value Reference Range Interpretation Comme nts TERESA 60 (test code = 6716724974) 24.0 ug/dL JUSTIN (test code = JUSTIN) Normal peak serum cortisol is greater than 20 ug/dL 30-60 minutes after 25 units of Cosyntropin IV. Biotin has been reported to cause a positive bias, interpret results relative to patient's use of biotin. [facility] (NA, K, CL, CO2, GLUCOSE, BUN, CREATININE, CA)2022-04-15 11:43:32* Test Item Value Reference Range Interpretation Comme nts NA (test code = 6462300269) 129 mmol/L 135-145 L K (test code = 9191525362) 3.9 mmol/L 3.5-5 CL (test code = 2051014395) 104 mmol/L 98-108 CO2 TOTAL (test code = 1330121845) 22 mmol/L 23-31 L AGAP (test code = 6730994280) 2-16 BUN (test code = 9123522862) 13 mg/dL 7-23 GLUCOSE (test code = 9952541977) 81 mg/dL 70-110 CREATININE (test code = 2479693136) 0.99 mg/dL 0.5-1.04 CALCIUM (test code = 3479996823) 7.9 mg/dL 8.6-10.6 L eGFR (test code = 8675891443) mL/min/1.73m2 JUSTIN (test code = JUSTIN) Association of [...] or abnormalities in imaging tests). Lab Interpretation (test code = 53558-0) Abnormal [facility] HospitalMAGNESIUM2022-10-14 11:43:32* Test Item Value Reference Range Interpretation Comme nts MAGNESIUM (test code = 5918974326) 2.0 mg/dL 1.7-2.4 Lab Interpretation (test cod e = 04851-2) Normal [facility] WITH [id number] 11:11:28* Test Item Value Reference Range Interpretation Comme nts WBC (test code = 6690-2) See_Comment [Automated Patient Engagement Systemsa [employer] [facility] [facility]] The system which generated this result transmitted reference range: 4.30 - 11.10 10*3/?L. The reference range was not used to interpret this result as normal/abnormal. RBC (test code = 789-8) See_Comment L [Automated Patient Engagement Systemsa [facility]] The system which generated this result transmitted reference range: 3.93 - 5.25 10*6/?L. The reference range was not used to interpret this result as normal/abnormal. HGB (test code = 718-7) 8.4 g/dL 11.6-15 L HCT (test code = 4544-3) 24.2 % 35.7-45.2 L MCV (test code = 787-2) 86.4 fL 80.6-95.5 MCH (test code = 785-6) 30.0 pg 25.9-32.8 MCHC (test code = 786-4) 34.7 g/dL 31.6-35.1 RDW-SD (test code = 69009-6) 51.8 fL 39-49.9 H RDW-CV (test code = 788-0) 16.3 % 12-15.5 H PLT (test code = 777-3) See_Comment [Automated messa ge] The system which generated this result transmitted reference range: 166 - 358 10*3/?L. The reference range was not used to interpret this result as normal/abnormal. MPV (test code = 43193-3) 9.3 fL 9.5-12.9 L NRBC/100 WBC (test code = 2981593552) See_Comment [Automated [employer]] The system which generated this result transmitted reference range: 0.0 - 10.0 /100 WBCs. The reference range was not used to interpret this result as normal/abnormal. NRBC x10^3 (test code = 5143004681) See_Comment [Automated messa ge] The system which generated this result transmitted reference range: 10*3/?L. The reference range was not used to interpret this result as normal/abnormal. GRAN MAT (NEUT) % (test code = 770-8) 70.0 % IMM GRAN % (test code = 0646510815) 1.50 % LYMPH % (test code = 736-9) 18.7 % MONO % (test code = 5905-5) 8.1 % EOS % (test code = 713-8) 1.5 % BASO % (test code = 706-2) 0.2 % GRAN MAT x10^3(ANC) (test code = 5855939543) 7.30 10*3/uL 1.88-7.09 H IMM GRAN x10^3 (test code = 0308266678) 0.16 10*3/uL 0-0.06 H LYMPH x10^3 (test code = 731-0) 1.95 10*3/uL 1.32-3.29 MONO x10^3 (test code = 742-7) 0.84 10*3/uL 0.33-0.92 EOS x10^3 (test code = 711-2) 0.16 10*3/uL 0.03-0.39 BASO x10^3 (test code = 704-7) 0.01-0.07 Lab Interpretation (test code = 19182-4) Abnormal [facility] [id number] 21:12:37* Test Item Value Reference Range Interpretation Comme nts Case Report (test code = 2372415842) Surgical Pathology ?Case: [id number] ? Authorizing Provider: ?Erasmo Tovar MD ? ? ? Collected: ? 04/08/2022 0944 ?Ordering Location: ? ? [facility] OR ? Received: ?04/08/2022 1308 ? Department ? Pathologist: ? Anuradha Wasserman MD ? Specimen: ? ?SOFT TISSUE, OTHER, PERIAMPULLARY MASS WITH STENT ? Final Diagnosis (test code = 3398944066) s3yioSRkQCUbb5htYOFfwPB uZzEwMzNcZnRuYmpcdWMxIH tccnRmMVxhbnNpXGRlZmxhb fuzQWSyLRO4ojTnWWShKLS5 FZP0ReZmTONrFqPlAPDrKFL zj4uao3JpjZDwuJGuHKiiuV NwtrUyzm83zXB6dZ22ND2mM VCnLkH9XKTsmoJ0Gjp8FCVy BDKyfZEbG826e3dnw3hanrK aoPT8eZhvLQUbcralKaM3RN igDNKdgfyfZBf9AIjbWYJcu ZR7GAJkdGAkL7TsLLXtSM8j gex0QWC6PQspBWFfUjM0ZAR udJBjMHOneRrvUDzrv855CW X3WoHbKYXwsuNlpIbvhJ3yN qMyRIfbSUNqBX8vBOBNGJML UFVMTEFSWSBNQVNTIFdJVEg bC9INCiQmMO3RV2TkNBpTKW RHD590NFVoegPfBLTzMGGHI RFFZL9DAMrPJ7DNLZQVKC1N TUEgXHBhciAgICAgLSBSRVN LT4RLG95fOCQKU8mCUN7LI2 WZAMMEQITYTmVBUPCJS53II HBhciAgICAgLSBTVEVOVCBJ EJBBHIuAQLIYJBpBPd5CKyY IGWTXNQ3KARjOCvocuQLaMR HfdgipyyRnXSleOxw6HWIfI BebTF2oNEPQNWTlHK3qRq6d LWLoSHIqEqY2XXZKUSZbvdi wdzLfHLVnpk57RRE6EaGax1 U5YMZoXuQwHZPkZG3kfHnhO KMsVO3hLQYxY2lvaC4zjtx8 JwKoYOUwOpP5NJNwdzQ2Yac 4HVXuTGymb0yvz1DeF4PokM YoxDm0d7uyBWErZdC9tVYhR UfgL1ktlxUpqFSxEZTiJJp7 dFnvTuRxFLPyv4sdbvYxZiL mRZOxZOZnQJIgdVxqssd3vX 07RQCouB2mhJAhVWfbzdYrJ bL9HJjwWHTaLmJ6BPAcvDOp HJHyA1nmFUSgHFisNQVxJFn wwPYwZAN5tHzso5K3bGSddI UrpYlsExEfWdVzTMRZq6KiU It4oSpvD6UrESWbDoF8yVRf HDYsHAnoMZHsHMZxuvW9eA1 4XGmberN8lVZjb1Whm45jq4 77pD5mmCXbDLG6PHCnGXZpi YSmETDsCCP6MGNahZNhS4ui MXMqWM3wtvphAZjoWEduZCX jaWM3NLMiwQFnZ5DmJNWnRN xeAHIbhzd7BgQcEo5oqDGqf AyrHStfi8jtb3wdxKMqTlb4 SPUpJsXdQehtCLqpu1Jpu8c bMNFpwb0zTAP2fNKskCcfa3 X3zEEkNWPquQMhpeEgFDHeZ nV9NZooQN1bgc84MOJfPUY3 ek2beBQqwNmnziOynHCkCXb aP9VpCDZfb127CCRsJ5CxCA Tdw9B7rhVrIhKkUQTbaVP3h rK4SNXgAQy8zGRzzvB9wxKh mIKxD2tyrQ2eEXJgSF3vfgd dr3zvGMbpONnqLPPysBV4gv G0BFEmeWPdA0EbgS9wPOUzA VlmXOTatrl4VzWbQs0pwUGv eTcyMFxzYmtwYWdlXHBnbmN vbnRccGduZGVjXHBsYWluXH BsYWluXGYwXGZzMjRccWxcc GtdvE5pFwFcWqLtIUaiDP0w RXDbL5gisAOsLADkLICdU2x lPiWhbV6qhLtgICwgMaWyLa MyMFxwYXIgSSBoYXZlIHBlc eRkztEswRsoguG2eAA8URLt MJelKVJlKAReuOFtuj3ibOh rLZDbSQ2wPMAifaCfOIdguX kmHBfsHOH6HTUbdZTsdWOay WFkZSBieSByZXNpZGVudHMs AOQysWldg2Far8UnvCV8rZ7 sc7uha4OiMTNuhLR4FZ43ij N0pJ5gFELzXF2gFFAeKL7ul QPbhTIeHQKyx23mgNdtbyMe ZXBvcnQuXHBsYWluXGYyXGZ zMjhcbGFuZzEwMzNcaGljaF mnXegtXoXoQRKnUEovX4csT yBgGrGjWXxtZDK3qBuneaDa VFinn7DiM0VqVeAjICcgngO cZZWtKtskzlotQJKqSXI1lc YcSQBsQBixWHBdJHynUa0dw HNiaBgtFsWrXKFwt3gdroTF EStvEiTyH280WLVqZLcnl4k kj0XqTLQgmPIcx4P1CGPLad gljWc2oAqhK43jm4D2LzfhS 1gzUWNyYITsV3YdZD3yRGOg Vvs8CLM5BEL8OKWzNXZbE7A mFY8mMFDtpMJwANn8m2rzhV eaWZLhSZC6a1mgWKnxsyO9H B8glm4zwAh9k8efocZeTHGy YUBmaVUOWNKrA4BmyGtaPb5 lvHu9dAfjZiitYOF2Wfl0MK 0uyo85esb0xHjsUICwnsldE tP6EPhoOSEtgbirDXy0EKrn FXMzsGQ9YLHcdBWjE8AhDZM xGC9vjyl2KVL2EOpsOREdRw P3MZSmaWKqTTLhhHxoHZzku 985MBP2SrJlJT3rY1Njw5J1 sE4bcPVhFJXfsNWcEaKbWPP udi4kgVKuCKybc8PqE02ixZ Y2REyyz0wmGS4qYzU4ruStA Qegt7xjeK9rVeO8FDxxEU1j vg64BMNxQGI2xa2dhZKtiZu sisVzoYHeEFjnV0PyEGTfz5 92RGWlA4MkSQZkq1C6wuXlC kZrFNLxeXD8nmI8NFUtRFj5 lLQrvhJ8uxOysLVuU8tddO0 yEVGvZF4snzmcg3fuRTidLB fyBYLpaHO3xnW3MDPnvVYtY 2LheS0bVZCyIKpsABMtpta3 PvRpYp1yaQRfhMdfEGcoKte wYWdlXHBnbmNvbnRccGduZG VjXHBsYWluXHBsYWluXGYwX XVhEjVntGXfICcmx9TksxMb aYknAWPiSSj0gdTqjzbtnEm 3tSJrcYtsXOWjsHqybA4hAc DtKbPnMWrpTD6jGDWyE5cjt MBiJADyHBQjV1spDtUjcH4v aFxmMVxjZjJcZnMyMFxsdHJ jaFxwYXIgSSBoYXZlIHBlcn OrjwQbrVvyvzL5bLX6BYNlB YusGJBnFWUhrNZsza2puMks UGHaFO2jGZAmfoOxIDikpJe hOXlhBYU7KKJefBCniGFapQ FkZSBieSByZXNpZGVudHMsI BLznFxho2Voe9GwqRP5qK6a l1lxy5SvXHVjpPF0SN41yxV 0hW7pGJNeTM6zZHEjEK6yiB UbvCTlWGHnu87rkJzrusZkW XBvcnQuXHBsYWluXGYxXGZz MjBcbGFuZzEwMzNcaGljaFx kXLbjXyPwNQShFKwmK1baUk BqH2RtDCExCsUmfAItYLClj gqrINLfu5LmDjXvk0hyXUpr r3ioyVi2EBqxfWXzwogqFMp flzY8LRDgIMmbLZZcVZCmNC RcbGFuZzEwMzNcaGljaFxmM JaqCxQyXOQnPQzzC7swMbHh V0GxJVBtFOAelJLgW6cfHDC 9jP0lk5vze6DlvUZqIxYuh1 lvbmFsIGNvbXBvbmVudCBwZ JUpq4UoMHGiRPXwVGPKVf3F PMCqcCPuU8d9wOWBLR1mnBQ qUNKvCKVjP7AtLdCBnkWoi3 Y6AFQthQWjWHHMJAZpnAQyU 7o0qZdsBZfyXue5OmUicScx fN4sZsKmPdNiHMlyML5wXEX uG4hwrTNtTGVeFWVvU8vmVg OauE1zhUxvQWbrHrOuThCtE SyxuDXfnKdqYIX3hB== Clinical Information (test code = 8005565020) 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] Gross Description (test code = 3152289354) c6qxdXCdBXAzqZCSHWIaKTS qVE1bbMpxfYi3nRxrSJGndl R1tORhAPcot9aqSRR1u6zwp iANClxkZWZmMVxwYXBlcncx LyP9PHgiUJWispqrSDx5EUd sWMPxaTC7YWJdkHOkD6RtVE NlJY7rnyu9UOI6MMwcLOZeY iB6AOSeQwJcZciePCq9KPHe tbY7Ocq0UVXcVMWekDStl9G 5MJnpipvbFQQbaTYhS458BR yin7XdqBFbZVcekRSyLFIIZ fngCnplnZnep1TyvXZzANbq PQMxFUAgLZjctvdnGHd3DKS qPTpmhMGcFQ1veDkwXvdsiG ykr1XlcMTyRAemGEIgZWJwE SuvYQPyFC9PZsEfKAR2UDp7 TzSbALi8KZp7PE6ULnVpMGX qVSIdKGujORXxJDm9MXnhYF 9AYHI2BZTeYCQ5DhPqJJTnL ZIuRFw7SYHrFInmVTLauGJq IFxcZnMgMTAgXFxmbCBcXG5 jfVxwbGFpblxmczIwIFNQRU OCXKNUWIAgsQEnER2NFUCwY OltRCZttHNOLGM4TN8bKHUI ClxsdHJwYXJcbGluMFxyaW4 xDQ9QSSd8cgQbVWLiXpFsR9 ReA8djYH9tPZZkpwIoQFSrw XZlZCBmcmVzaCBsYWJlbGxl UHX4gZCtKQOtYBKiOIDxGX9 0XCdCNHMgbmFtZSwgVUggbn QrZrDpGKGfGOWcwnihfJT1d DiocxblrTBuetS0xAAdPOF4 NB40OZmUSCzoVmJuCQ7bLAB zprSme1OvVS7iILVlq4lrQ4 uoVKZik8NcaPA2SUSojVync q2fPRLnaT1epDHfbINspGBp meDcGy76TBknRo27CTctOA1 7KCDzZMN2fUNdSAFgYrb4WJ MzmJIbrDIySX0nWHOtWIhbN Djypea3vMBlqSCsOuXoZ35k lG8iPQoyeMF6EJUcPMUyu5C lUHL5yQUjtQxkSBKzLBHpwY 1utn2iFAMyMABhyOBnfRLpq aZcSE1oigZjDLA0nTThreXf YEI6yW4eJO5ysjtaavPptpY wxzlqXOBggXUzMBBqETL2rR Bhz9OfW9enEW7ecMJvv3Ulo RKiqAghx1PtuJpruhRqQEHq IHJldmVhbCBnbGlzdGVuaW5 iQQCaht2mpU8jMUC3hNQreQ QjIZZatz2zCAGiXJTzeH2vt bCmyfKokj0xTEXrQQMygbTq h9j3gBMzmQrzxDDfwK9iFUW whd3beT4zPX56S21pTT9wDY eim1JnEC9iDMdiOGdyrFepn Z2xvzOzqJOoBXPqLNCxe8Yb VHQmHLF3kOEisQWpmuKoptZ ozjUfvhSveISgdgOzg9FrhZ ZhuWktkBa7RFL8Bv3fwPYzC KEmxwRYAU7VEQMrbNQtAF1z sT6cWZMfIXQeDxdfOMXxXQd jkWXsQC0BAlJqgLOdQJZOzK watfM9NTEOGALtFHBSKZzdg GluZSANClxlcGljTmVzdERv AnUbgiU5XDVddCXeRYU2BC2 pUMDewfdyIINrJTDbTBZ5EF edtH39nJDgZUMhWZQszDJsm RahnDZowjHONbnwgG9xRoWj a9trhWe4IAKQHtqqtDKoxuu jytD5XMTuz1ilzJmpd1VvbQ HjYC5jlMwqlG6fGuVfVwKMC n0= Disclaimer (test code = 8579426163) l7qnoBGxYYOmg4mtNRNivWQ uZzEwMzNcZnRuYmpcdWMxIH lkmnVxKUenf5CcL9TfBcLvH FxhbnNpXGRlZmxhbmcxMDMz QTP7chWqKDAzMEqoRGQlLYq oFj3alIDwxIwrGiJtGYPih5 qbccGNBFnxMtAtG852KBJfA Yuah8bsw6NhYLSjxUYun9E7 YLNRgzuakBc8tZnmT59cy9A 8OgyuL8trHDXrTJVwE0IeKB 0tOYRqDzl7IAQ8VGO4LSXgH LOuQ5IcWO5bJXDrmJAwHVf5 t8bgsEoxQRSfPAF7l9scEWh mbxRwNO3ozh3ogSn8l5jyco XsHQHdWTOnyOLTZQXzR9Dng JeyZz0rwIs6kAmbKjvgKCE9 Inb6XM1fmj59bqi9dSqhRDT jiiyoIlK8CLzfCFJfxxjuKN s0QBhyRHNbyEG0APPdwFNcH 7GsFBUyTY7gzsf8DSV4TQjm YIMdZrV1TGDiyNUoTBKqfQe vSTkxq301FOP4BeIgEC7vP4 Mli8L6uH6rtNKcAVNiiFZyU vVeHOZuww0zxCMaVKawe2Co YKO3bkM7jISsgCVyJJVpQE7 6Tscag7QjXnhix2LyG57viL K9ACwyp6zdYL8wXbI3abIcX Covu8vprE7wHsN8EWokIV7y SL6vMUNdyH9cxtzqKZYmPqH uzpwiWTGcaAdzttYrCm1wyU nzZRD6MObaH4gmeM0jHzJ4G WueT2bjtJ7zYDl6GXybxGT6 VHTdkC2kKM0toqkcp1ukFSw fEWqgBEWbumJ0vbV9BIMkgA EvM8BacA1jVGSpMN8bycfeq 0uaLCH2AMquSUShEPB0GeLr SIAgb4Lwszy8AdAol7NpqBR lKNelZ76yv426WDXojdZtT8 xwbGFpblxwbGFpblxmMFxmc lP3EEWljoYax0CwJQYuBWT0 CXgtFCcejJNrIUHlzFpik5h bP6WbaATjYEUhMJtdULVhIT ZzMjBcbGFuZzEwMzNcaGlja XpiGThpBqPuEOJgLBatB0sk WwRpT2YeIHJqTpCpwWJdY6f qCQhxtwNyVZOhomMmoRE8AU ztD3p6SKYbrnPwwPx9pjLtG iGqUROdQOK6CEyztORcJWCl c5PlgfrefOQyRr6vvLKbPDU ssU3lCVLiPGDxBJxlTA2mvH h6QNBUnZJtiPYuKuMMUPLpD S86snYlJAXCnaxsj9O5AAjw HHEbp0YxsOUbR8wyv4JtPDD ug37nSP8gj5B5k3mpFKA4HB 9dk2XpRDSfpRMhkTHpZNWzu 1Ntktbbl0OmJOLvorAgg7Uc ZCBhbmQgaXRzIHBlcmZvcm1 nhmQfMMWbXZHhG5AzjmohnU bbvfDlYLXmlc4pznEyPXW6Z HPVAUIiDSQfh6SzgI7ucPRS HTL3yLOxsb9qwkLTkVNhAZF ubl56XHVzWG2hP7ypWXBuNP WkekCanTPtf0KqOALilSZ7u CUbFB8CLzJOi10rRZHzOEJV kzJqUVQwlKuytDP5jiA9oB1 uIChGREEpLlx+IFRoZSBGRE UwYY4lkxIoi0QbzhHqfFmzA XWqiUVta5NlhRGfc0HlwTvl k2LzjTYzjWKtZY0rTNLlxis rGZNtBFCACePQLBSwvyE5e0 IcFJFzPLMmYMH1rSgqboj0F UFaxL7eJMFcL0igypqySSdv ULXiy0UwmB4lxZRNbLAec6J azPXzvQSHuCDxDK0zuuBrSR eVKNgBLAL1wuGuLLTau4XlU FacA0iaD27haObpsRx0lHG1 RQG8uQ1qWck+IFxwYXJccGF yIEFwcHJvcHJpYXRlbHkgcm MyG1KoioHmpF4geUYhwaQfM P5pSA5dY7Z5jJDwZOCknsYp b6dsSFvuftEvJlEfhyJzAGC yVGzeNLMar7UpGXzwTJU8BB lucyBpbmNsdWRpbmcgSCZFL FAPrOZavNWiDKE7MXbebiCe rkAeTW3llP1hfTclzX9wbUW smEX2hyliLPTfNNEzvQuiNU KbHC2muKWkAAHkezSByLjfq HZpdC8pH3RfHOZgUDGetw9r HIPhkA3hLUnqs6IdtqqhCNU lRRGcKXWcyyUcbw3vRIEkvX MWMK1SBMmovCVsd1TjgrUgU 5mUTVY4LQHeFgFuEronPKXm wCVnrIQwNEMbfp14TADwbD8 rxSsbWNHvlS4khZ8ypTrboX 5lRfFmMeXvZQucKF4eVLBbS 2fmkGOpAGJmVSQvV8grYtUv rE4asUutBXjrVzCsYdAlDAe uJVL3pM== Embedded Images (test code = 8435078507) [id number] 12:14:29* Test Item Value Reference Range Interpretation Comme nts TERESA AM (test code = 9869846885) 24.0 ug/dL 4.5-23 H JUSTIN (test code = JUSTIN) Biotin has been reported to cause a positive bias, interpret results relative to patient's use of biotin. Lab Interpretation (test code = 02186-6) [facility]normal [facility] (post cosyntropin injection)2022-04-14 12:11:24* Test Item Value Reference Range Interpretation Comme nts TERESA 30 (test code = 2264126385) 17.9 ug/dL JUSTIN (test code = JUSTIN) Normal peak serum cortisol is greater than 20 ug/dL 30-60 minutes after 25 units of Cosyntropin IV. Biotin has been reported to cause a positive bias, interpret results relative to patient's use of biotin. [facility] METABOLIC PANEL (NA, K, CL, CO2, GLUCOSE, BUN, CREATININE, CA)2022-04-14 11:41:42* Test Item Value Reference Range Interpretation Comme nts NA (test code = 6458223944) 124 mmol/L 135-145 L K (test code = 9080459322) 3.9 mmol/L 3.5-5 CL (test code = 6221095858) 97 mmol/L 98-108 L CO2 TOTAL (test code = 2112530251) 22 mmol/L 23-31 L AGAP (test code = 7920034028) 2-16 BUN (test code = 9377979033) 12 mg/dL 7-23 GLUCOSE (test code = 5716167052) 80 mg/dL 70-110 CREATININE (test code = 5201373923) 1.03 mg/dL 0.5-1.04 CALCIUM (test code = 9012247713) 8.0 mg/dL 8.6-10.6 L eGFR (test code = 6147078881) mL/min/1.73m2 JUSTIN (test code = JUSTIN) Association of [...] or abnormalities in imaging tests). Lab Interpretation (test code = 84458-7) [facility] 11:41:42* Test Item Value Reference Range Interpretation Comme nts MAGNESIUM (test code = 4125414904) 2.3 mg/dL 1.7-2.4 Lab Interpretation (test cod e = 49776-9) Normal [facility] [id number] 00:49:42 * Test Item Value Reference Range Interpretation Comme nts TSH (test code = 0304524278) See_Comment Biotin has been reported to cause a negative bias, interpret results relative to patient's use of biotin. [Automated message] The system which generated this result transmitted reference range: 0.45 - 4.70 mIU/L. The reference range was not used to interpret this result as normal/abnormal. Lab Interpretation (test code = 00425-9) [facility] (NA, K, CL, CO2, GLUCOSE, BUN, CREATININE, CA)2022-04-14 00:23:11* Test Item Value Reference Range Interpretation Comme nts NA (test code = 5183911466) 126 mmol/L 135-145 L K (test code = 5506233653) 3.9 mmol/L 3.5-5 CL (test code = 5151926187) 96 mmol/L 98-108 L CO2 TOTAL (test code = 2826653865) 22 mmol/L 23-31 L AGAP (test code = 1813574799) 2-16 BUN (test code = 6498691896) 11 mg/dL 7-23 GLUCOSE (test code = 0312473685) 121 mg/dL 70-110 H CREATININE (test code = 9729246812) 1.16 mg/dL 0.5-1.04 H CALCIUM (test code = 4752283999) 7.9 mg/dL 8.6-10.6 L eGFR (test code = 5245908046) mL/min/1.73m2 JUSTIN (test code = JUSTIN) Association of [...] or abnormalities in imaging tests). Lab Interpretation (test code = 35936-4) [facility]prior to cosyntropin injection) 2022-04-14 00:13:54* Test Item Value Reference Range Interpretation Comme nts ALBUMIN (test code = 2854067828) 2.5 g/dL 3.5-5 L Lab Interpretation (test cod e = 90045-4) [facility]normal [facility] 0 Min (prior to cosyntropin injection)2022-04-14 00:00:54* Test Item Value Reference Range Interpretation Comme nts TERESA 0 (test code = 8278871804) 21.2 ug/dL 4.5-23 JUSTIN (test code = JUSTIN) Biotin has been reported to cause a positive bias, interpret results relative to patient's use of biotin. Lab Interpretation (test code = 63358-5) [facility] 10:08:19* Test Item Value Reference Range Interpretation Comme nts PHOSPHORUS (test code = 8690326614) 3.7 mg/dL 2.5-5 Lab Interpretation (test cod e = 95497-7) [facility] 10:08:19* Test Item Value Reference Range Interpretation Comme nts MAGNESIUM (test code = 9814845064) 1.9 mg/dL 1.7-2.4 Lab Interpretation (test cod e = 67925-6) Normal [facility] METABOLIC PANEL (NA, K, CL, CO2, GLUCOSE, BUN, CREATININE, CA)2022-04-13 10:08:18* Test Item Value Reference Range Interpretation Comme nts NA (test code = 0469891472) 124 mmol/L 135-145 L K (test code = 2628962757) 3.4 mmol/L 3.5-5 L CL (test code = 3929193316) 98 mmol/L 98-108 CO2 TOTAL (test code = 7520093123) 22 mmol/L 23-31 L AGAP (test code = 4465681119) 2-16 BUN (test code = 5753756478) 9 mg/dL 7-23 GLUCOSE (test code = 6733263990) 85 mg/dL 70-110 CREATININE (test code = 0410343723) 0.73 mg/dL 0.5-1.04 CALCIUM (test code = 8419689766) 7.3 mg/dL 8.6-10.6 L eGFR (test code = 5326431093) mL/min/1.73m2 JUSTIN (test code = UJSTIN) Association of Glomerular Filtration Rate (GFR) and [...] or abnormalities in imaging tests). Lab Interpretation (test code = 28948-8) Abnormal [facility] WITH [id number] 09:57:37* Test Item Value Reference Range Interpretation Comme nts WBC (test code = 6690-2) See_Comment [Automated Patient Engagement System[facility]] The system which generated this result transmitted reference range: 4.30 - 11.10 10*3/?L. The reference range was not used to interpret this result as normal/abnormal. RBC (test code = 789-8) See_Comment L [Automated Patient [employer]] The system which generated this result transmitted reference range: 3.93 - 5.25 10*6/?L. The reference range was not used to interpret this result as normal/abnormal. HGB (test code = 718-7) 9.2 g/dL 11.6-15 L HCT (test code = 4544-3) 26.5 % 35.7-45.2 L MCV (test code = 787-2) 85.8 fL 80.6-95.5 MCH (test code = 785-6) 29.8 pg 25.9-32.8 MCHC (test code = 786-4) 34.7 g/dL 31.6-35.1 RDW-SD (test code = 97470-7) 50.5 fL 39-49.9 H RDW-CV (test code = 788-0) 16.2 % 12-15.5 H PLT (test code = 777-3) See_Comment [Automated Patient Engagement [employer]] The system which generated this result transmitted reference range: 166 - 358 10*3/?L. The reference range was not used to interpret this result as normal/abnormal. MPV (test code = 98558-9) 8.9 fL 9.5-12.9 L NRBC/100 WBC (test code = 5276105508) See_Comment [Automated me ssage] The system which generated this result transmitted reference range: 0.0 - 10.0 /100 WBCs. The reference range was not used to interpret this result as normal/abnormal. NRBC x10^3 (test code = 0356499299) See_Comment [Automated messa ge] The system which generated this result transmitted reference range: 10*3/?L. The reference range was not used to interpret this result as normal/abnormal. GRAN MAT (NEUT) % (test code = 770-8) 67.2 % IMM GRAN % (test code = 8753156748) 0.50 % LYMPH % (test code = 736-9) 17.9 % MONO % (test code = 5905-5) 13.2 % EOS % (test code = 713-8) 1.0 % BASO % (test code = 706-2) 0.2 % GRAN MAT x10^3(ANC) (test code = 0093435719) 5.45 10*3/uL 1.88-7.09 IMM GRAN x10^3 (test code = 5566136663) 0.04 10*3/uL 0-0.06 LYMPH x10^3 (test code = 731-0) 1.45 10*3/uL 1.32-3.29 MONO x10^3 (test code = 742-7) 1.07 10*3/uL 0.33-0.92 H EOS x10^3 (test code = 711-2) 0.08 10*3/uL 0.03-0.39 BASO x10^3 (test code = 704-7) 0.01-0.07 Lab Interpretation (test code = 66245-5) [facility] 10:31:53* Test Item Value Reference Range Interpretation Comme nts PHOSPHORUS (test code = 6109671870) 2.2 mg/dL 2.5-5 L Lab Interpretation (test cod e = 07710-9) [facility] 10:31:53* Test Item Value Reference Range Interpretation Comme nts MAGNESIUM (test code = 8766208641) 1.6 mg/dL 1.7-2.4 L Lab Interpretation (test cod e = 66552-1) Abnormal [facility] METABOLIC PANEL (NA, K, CL, CO2, GLUCOSE, BUN, CREATININE, CA)2022-04-12 10:31:53* Test Item Value Reference Range Interpretation Comme nts NA (test code = 0538567216) 127 mmol/L 135-145 L K (test code = 2538589483) 3.6 mmol/L 3.5-5 CL (test code = 1640233660) 99 mmol/L 98-108 CO2 TOTAL (test code = 5263680066) 23 mmol/L 23-31 AGAP (test code = 0350880997) 2-16 BUN (test code = 9636387959) 5 mg/dL 7-23 L GLUCOSE (test code = 3004638266) 125 mg/dL 70-110 H CREATININE (test code = 7589027328) 0.54 mg/dL 0.5-1.04 CALCIUM (test code = 1935993695) 7.1 mg/dL 8.6-10.6 L eGFR (test code = 9728766558) mL/min/1.73m2 JUSTIN (test code = JUSTIN) Association of [...] or abnormalities in imaging tests). Lab Interpretation (test code = 81035-8) [facility] (ALB,T.PRO,BILI T,BU/BC,ALT,AST,ALK PHOS)2022-04-12 10:31:53* Test Item Value Reference Range Interpretation Comme nts TOTAL BILI (test code = 6204041934) 0.7 mg/dL 0.1-1.1 BILI UNCON (test code = 8924607435) 0.5 mg/dL 0.1-1.1 BILI CONJ (test code = 1623674259) 0.0 mg/dL 0-0.3 T PROTEIN (test code = 9491484141) 5.4 g/dL 6.3-8.2 L ALBUMIN (test code = 8864668750) 2.5 g/dL 3.5-5 L ALK PHOS (test code = 7102588672) 82 U/L 34-122 ALTv (test code = 1742-6) 14 U/L 5-35 AST(SGOT) (test code = 1787841932) 24 U/L 13-40 Lab Interpretation (test cod e = 30064-2) [id number] 10:06:12* Test Item Value Reference Range Interpretation Comme nts WBC (test code = 6690-2) See_Comment H [Automated messa ge] The system which generated this result transmitted reference range: 4.30 - 11.10 10*3/?L. The reference range was not used to interpret this result as normal/abnormal. RBC (test code = 789-8) See_Comment L [Automated messa ge] The system which generated this result transmitted reference range: 3.93 - 5.25 10*6/?L. The reference range was not used to interpret this result as normal/abnormal. HGB (test code = 718-7) 10.3 g/dL 11.6-15 L HCT (test code = 4544-3) 30.0 % 35.7-45.2 L MCV (test code = 787-2) 87.0 fL 80.6-95.5 MCH (test code = 785-6) 29.9 pg 25.9-32.8 MCHC (test code = 786-4) 34.3 g/dL 31.6-35.1 RDW-SD (test code = 26693-8) 52.7 fL 39-49.9 H RDW-CV (test code = 788-0) 16.4 % 12-15.5 H PLT (test code = 777-3) See_Comment [Automated Patient Engagement Systemsa ge] The system which generated this result transmitted reference range: 166 - 358 10*3/?L. The reference range was not used to interpret this result as normal/abnormal. MPV (test code = 85860-8) 9.1 fL 9.5-12.9 L NRBC/100 WBC (test code = 0741107117) See_Comment [Automated [employer] ssage] The system which generated this result transmitted reference range: 0.0 - 10.0 /100 WBCs. The reference range was not used to interpret this result as normal/abnormal. NRBC x10^3 (test code = 6577009290) See_Comment [Automated Patient Engagement Systemsa ge] The system which generated this result transmitted reference range: 10*3/?L. The reference range was not used to interpret this result as normal/abnormal. GRAN MAT (NEUT) % (test code = 770-8) 75.9 % IMM GRAN % (test code = 1167485879) 0.80 % LYMPH % (test code = 736-9) 12.9 % MONO % (test code = 5905-5) 9.5 % EOS % (test code = 713-8) 0.6 % BASO % (test code = 706-2) 0.3 % GRAN MAT x10^3(ANC) (test code = 5209682104) 9.47 10*3/uL 1.88-7.09 H IMM GRAN x10^3 (test code = 7812718386) 0.10 10*3/uL 0-0.06 H LYMPH x10^3 (test code = 731-0) 1.61 10*3/uL 1.32-3.29 MONO x10^3 (test code = 742-7) 1.18 10*3/uL 0.33-0.92 H EOS x10^3 (test code = 711-2) 0.08 10*3/uL 0.03-0.39 BASO x10^3 (test code = 704-7) 0.04 10*3/uL 0.01-0.07 Lab Interpretation (test code = 25556-2) Abnormal [facility] METABOLIC PANEL (NA, K, CL, CO2, GLUCOSE, BUN, CREATININE, CA)2022-04-11 08:52:09* Test Item Value Reference Range Interpretation Comme nts NA (test code = 7488397747) 130 mmol/L 135-145 L K (test code = 6470969531) 3.5 mmol/L 3.5-5 CL (test code = 4829737547) 103 mmol/L 98-108 CO2 TOTAL (test code = 9163041839) 24 mmol/L 23-31 AGAP (test code = 1049915645) 2-16 BUN (test code = 5887496892) 6 mg/dL 7-23 L GLUCOSE (test code = 4223177853) 100 mg/dL 70-110 CREATININE (test code = 5905490495) 0.62 mg/dL 0.5-1.04 CALCIUM (test code = 7693707543) 7.6 mg/dL 8.6-10.6 L eGFR (test code = 8779301724) mL/min/1.73m2 JUSTIN (test code = JUSTIN) Association of [...] or abnormalities in imaging tests). Lab Interpretation (test code = 39599-6) [facility]25417[facility] (ALB,T.PRO,BILI T,BU/BC,ALT,AST,ALK PHOS)2022-04-11 08:52:09* Test Item Value Reference Range Interpretation Comme nts TOTAL BILI (test code = 0439805574) 0.6 mg/dL 0.1-1.1 BILI UNCON (test code = 5343504622) 0.5 mg/dL 0.1-1.1 BILI CONJ (test code = 2430221424) 0.0 mg/dL 0-0.3 T PROTEIN (test code = 2768789189) 5.3 g/dL 6.3-8.2 L ALBUMIN (test code = 2851642633) 2.6 g/dL 3.5-5 L ALK PHOS (test code = 7368778603) 80 U/L 34-122 ALTv (test code = 1742-6) 16 U/L 5-35 AST(SGOT) (test code = 2274438450) 55 U/L 13-40 H Lab Interpretation (test cod e = 65475-1) [facility] 08:52:09* Test Item Value Reference Range Interpretation Comme nts MAGNESIUM (test code = 2725083979) 1.8 mg/dL 1.7-2.4 Lab Interpretation (test cod e = 14831-5) [facility] 08:52:09* Test Item Value Reference Range Interpretation Comme nts PHOSPHORUS (test code = 9950903924) 2.2 mg/dL 2.5-5 L Lab Interpretation (test cod e = 89158-0) [facility]normal [facility] 08:52:09* Test Item Value Reference Range Interpretation Comme nts LIPASE (test code = 9371706678) 23 U/L 0-220 Lab Interpretation (test cod e = 90015-4) [facility] (NA, K, CL, CO2, GLUCOSE, BUN, CREATININE, CA)2022-04-11 08:52:09* Test Item Value Reference Range Interpretation Comme nts NA (test code = 7358770718) 130 mmol/L 135-145 L K (test code = 0105484916) 3.5 mmol/L 3.5-5 CL (test code = 1431469763) 103 mmol/L 98-108 CO2 TOTAL (test code = 9927711563) 24 mmol/L 23-31 AGAP (test code = 0381039240) 2-16 BUN (test code = 6747451620) 6 mg/dL 7-23 L GLUCOSE (test code = 4733673012) 100 mg/dL 70-110 CREATININE (test code = 2624836673) 0.62 mg/dL 0.5-1.04 CALCIUM (test code = 8386964828) 7.6 mg/dL 8.6-10.6 L eGFR (test code = 8903456447) mL/min/1.73m2 JUSTIN (test code = JUSTIN) Association of [...] or abnormalities in imaging tests). Lab Interpretation (test code = 36040-0) [facility]normal [facility]70006[facility] (ALB,T.PRO,BILI T,BU/BC,ALT,AST,ALK PHOS)2022-04-11 08:52:09* Test Item Value Reference Range Interpretation Comme nts TOTAL BILI (test code = 9743111255) 0.6 mg/dL 0.1-1.1 BILI UNCON (test code = 5588501315) 0.5 mg/dL 0.1-1.1 BILI CONJ (test code = 3446093653) 0.0 mg/dL 0-0.3 T PROTEIN (test code = 4146297030) 5.3 g/dL 6.3-8.2 L ALBUMIN (test code = 2452275504) 2.6 g/dL 3.5-5 L ALK PHOS (test code = 9145637192) 80 U/L 34-122 ALTv (test code = 1742-6) 16 U/L 5-35 AST(SGOT) (test code = 6098253970) 55 U/L 13-40 H Lab Interpretation (test cod e = 84716-3) [facility]normal [facility] 08:52:09* Test Item Value Reference Range Interpretation Comme nts MAGNESIUM (test code = 5518441142) 1.8 mg/dL 1.7-2.4 Lab Interpretation (test cod e = 96034-1) [facility] 08:52:09* Test Item Value Reference Range Interpretation Comme nts PHOSPHORUS (test code = 3730738746) 2.2 mg/dL 2.5-5 L Lab Interpretation (test cod e = 46213-5) [facility]normal [facility] 08:52:09* Test Item Value Reference Range Interpretation Comme nts LIPASE (test code = 8421929071) 23 U/L 0-220 Lab Interpretation (test cod e = 58704-2) Normal [facility] WITH [id number] 08:40:07* Test Item Value Reference Range Interpretation Comme nts WBC (test code = 6690-2) See_Comment H [Automated message] The system which generated this result transmitted reference range: 4.30 - 11.10 10*3/?L. The reference range was not used to interpret this result as normal/abnormal. RBC (test code = 789-8) See_Comment L [Automated message] The system which generated this result transmitted reference range: 3.93 - 5.25 10*6/?L. The reference range was not used to interpret this result as normal/abnormal. HGB (test code = 718-7) 9.8 g/dL 11.6-15 L HCT (test code = 4544-3) 29.2 % 35.7-45.2 L MCV (test code = 787-2) 88.2 fL 80.6-95.5 MCH (test code = 785-6) 29.6 pg 25.9-32.8 MCHC (test code = 786-4) 33.6 g/dL 31.6-35.1 RDW-SD (test code = 77293-8) 54.6 fL 39-49.9 H RDW-CV (test code = 788-0) 16.8 % 12-15.5 H PLT (test code = 777-3) See_Comment [Automated message] The system which generated this result transmitted reference range: 166 - 358 10*3/?L. The reference range was not used to interpret this result as normal/abnormal. MPV (test code = 24549-0) 9.1 fL 9.5-12.9 L NRBC/100 WBC (test code = 7920285234) See_Comment [Automated message] The system which generated this result transmitted reference range: 0.0 - 10.0 /100 WBCs. The reference range was not used to interpret this result as normal/abnormal. NRBC x10^3 (test code = 2159327768) See_Comment [Automated message] The system which generated this result transmitted reference range: 10*3/?L. The reference range was not used to interpret this result as normal/abnormal. GRAN MAT (NEUT) % (test code = 770-8) 84.8 % IMM GRAN % (test code = 3500763764) 0.90 % LYMPH % (test code = 736-9) 9.3 % MONO % (test code = 5905-5) 3.9 % EOS % (test code = 713-8) 0.9 % BASO % (test code = 706-2) 0.2 % GRAN MAT x10^3(ANC) (test code = 0698115078) 13.96 10*3/uL 1.88-7.09 H IMM GRAN x10^3 (test code = 4433697850) 0.14 10*3/uL 0-0.06 H LYMPH x10^3 (test code = 731-0) 1.53 10*3/uL 1.32-3.29 MONO x10^3 (test code = 742-7) 0.64 10*3/uL 0.33-0.92 EOS x10^3 (test code = 711-2) 0.14 10*3/uL 0.03-0.39 BASO x10^3 (test code = 704-7) 0.04 10*3/uL 0.01-0.07 Lab Interpretation (test code = 00864-5) Abnormal [facility] WITH [id number] 08:40:07* Test Item Value Reference Range Interpretation Comme nts WBC (test code = 6690-2) See_Comment H [Automated message] The system which generated this result transmitted reference range: 4.30 - 11.10 10*3/?L. The reference range was not used to interpret this result as normal/abnormal. RBC (test code = 789-8) See_Comment L [Automated message] The system which generated this result transmitted reference range: 3.93 - 5.25 10*6/?L. The reference range was not used to interpret this result as normal/abnormal. HGB (test code = 718-7) 9.8 g/dL 11.6-15 L HCT (test code = 4544-3) 29.2 % 35.7-45.2 L MCV (test code = 787-2) 88.2 fL 80.6-95.5 MCH (test code = 785-6) 29.6 pg 25.9-32.8 MCHC (test code = 786-4) 33.6 g/dL 31.6-35.1 RDW-SD (test code = 80509-5) 54.6 fL 39-49.9 H RDW-CV (test code = 788-0) 16.8 % 12-15.5 H PLT (test code = 777-3) See_Comment [Automated message] The system which generated this result transmitted reference range: 166 - 358 10*3/?L. The reference range was not used to interpret this result as normal/abnormal. MPV (test code = 12600-9) 9.1 fL 9.5-12.9 L NRBC/100 WBC (test code = 2897012547) See_Comment [Automated message] The system which generated this result transmitted reference range: 0.0 - 10.0 /100 WBCs. The reference range was not used to interpret this result as normal/abnormal. NRBC x10^3 (test code = 1007310908) See_Comment [Automated message] The system which generated this result transmitted reference range: 10*3/?L. The reference range was not used to interpret this result as normal/abnormal. GRAN MAT (NEUT) % (test code = 770-8) 84.8 % IMM GRAN % (test code = 9472231264) 0.90 % LYMPH % (test code = 736-9) 9.3 % MONO % (test code = 5905-5) 3.9 % EOS % (test code = 713-8) 0.9 % BASO % (test code = 706-2) 0.2 % GRAN MAT x10^3(ANC) (test code = 5317501650) 13.96 10*3/uL 1.88-7.09 H IMM GRAN x10^3 (test code = 2983191644) 0.14 10*3/uL 0-0.06 H LYMPH x10^3 (test code = 731-0) 1.53 10*3/uL 1.32-3.29 MONO x10^3 (test code = 742-7) 0.64 10*3/uL 0.33-0.92 EOS x10^3 (test code = 711-2) 0.14 10*3/uL 0.03-0.39 BASO x10^3 (test code = 704-7) 0.04 10*3/uL 0.01-0.07 Lab Interpretation (test code = 52076-0) [facility]* Test Item Value Reference Range Interpretation Comme nts LIPASE (test code = 2281606522) 57 U/L 0-220 Lab Interpretation (test cod e = 85569-1) [facility] 12:52:48* Test Item Value Reference Range Interpretation Comme nts LIPASE (test code = 9692624750) 57 U/L 0-220 Lab Interpretation (test cod e = 26045-2) [facility] (NA, K, CL, CO2, GLUCOSE, BUN, CREATININE, CA)2022-04-10 10:50:04* Test Item Value Reference Range Interpretation Comme nts NA (test code = 7638434921) 132 mmol/L 135-145 L K (test code = 6728795040) 3.6 mmol/L 3.5-5 CL (test code = 6459266853) 103 mmol/L 98-108 CO2 TOTAL (test code = 6474465268) 24 mmol/L 23-31 AGAP (test code = 8709433245) 2-16 BUN (test code = 1650838493) 9 mg/dL 7-23 GLUCOSE (test code = 0516096719) 86 mg/dL 70-110 CREATININE (test code = 0933158485) 0.75 mg/dL 0.5-1.04 CALCIUM (test code = 0522142342) 7.5 mg/dL 8.6-10.6 L eGFR (test code = 6069119111) mL/min/1.73m2 JUSTIN (test code = JUSTIN) Association of [...] or abnormalities in imaging tests). Lab Interpretation (test code = 52735-7) [facility] 10:50:04* Test Item Value Reference Range Interpretation Comme nts MAGNESIUM (test code = 0202307398) 1.5 mg/dL 1.7-2.4 L Lab Interpretation (test cod e = 14426-4) [facility] (ALB,T.PRO,BILI T,BU/BC,ALT,AST,ALK PHOS)2022-04-10 10:50:04* Test Item Value Reference Range Interpretation Comme nts TOTAL BILI (test code = 0372229057) 0.5 mg/dL 0.1-1.1 BILI UNCON (test code = 9392833656) 0.3 mg/dL 0.1-1.1 BILI CONJ (test code = 4258014880) 0.0 mg/dL 0-0.3 T PROTEIN (test code = 0819831054) 4.9 g/dL 6.3-8.2 L ALBUMIN (test code = 0120465453) 2.3 g/dL 3.5-5 L ALK PHOS (test code = 4537503335) 58 U/L 34-122 ALTv (test code = 1742-6) 15 U/L 5-35 AST(SGOT) (test code = 8590964132) 25 U/L 13-40 Lab Interpretation (test cod e = 91402-6) Abnormal [facility] METABOLIC PANEL (NA, K, CL, CO2, GLUCOSE, BUN, CREATININE, CA)2022-04-10 10:50:04* Test Item Value Reference Range Interpretation Comme nts NA (test code = 9367294415) 132 mmol/L 135-145 L K (test code = 3082698447) 3.6 mmol/L 3.5-5 CL (test code = 8135419929) 103 mmol/L 98-108 CO2 TOTAL (test code = 8630354926) 24 mmol/L 23-31 AGAP (test code = 1995790600) 2-16 BUN (test code = 3158314881) 9 mg/dL 7-23 GLUCOSE (test code = 4188166117) 86 mg/dL 70-110 CREATININE (test code = 4148015199) 0.75 mg/dL 0.5-1.04 CALCIUM (test code = 0081272674) 7.5 mg/dL 8.6-10.6 L eGFR (test code = 2267409184) mL/min/1.73m2 JUSTIN (test code = JUSTIN) Association of [...] or abnormalities in imaging tests). Lab Interpretation (test code = 00992-6) [facility] 10:50:04* Test Item Value Reference Range Interpretation Comme nts MAGNESIUM (test code = 5607695061) 1.5 mg/dL 1.7-2.4 L Lab Interpretation (test cod e = 01361-7) [facility]normal [facility] (07676[facility] (ALB,T.PRO,BILI T,BU/BC,ALT,AST,ALK PHOS)2022-04-10 10:50:04* Test Item Value Reference Range Interpretation Comme nts TOTAL BILI (test code = 1020812484) 0.5 mg/dL 0.1-1.1 BILI UNCON (test code = 0148319779) 0.3 mg/dL 0.1-1.1 BILI CONJ (test code = 5657963506) 0.0 mg/dL 0-0.3 T PROTEIN (test code = 1965626518) 4.9 g/dL 6.3-8.2 L ALBUMIN (test code = 7776764906) 2.3 g/dL 3.5-5 L ALK PHOS (test code = 4271561044) 58 U/L 34-122 ALTv (test code = 1742-6) 15 U/L 5-35 AST(SGOT) (test code = 5996941993) 25 U/L 13-40 Lab Interpretation (test cod e = 23953-8) [facility] WITH [id number] 10:30:21* Test Item Value Reference Range Interpretation Comme nts WBC (test code = 6690-2) See_Comment H [Automated message] The system which generated this result transmitted reference range: 4.30 - 11.10 10*3/?L. The reference range was not used to interpret this result as normal/abnormal. RBC (test code = 789-8) See_Comment L [Automated message] The system which generated this result transmitted reference range: 3.93 - 5.25 10*6/?L. The reference range was not used to interpret this result as normal/abnormal. HGB (test code = 718-7) 8.9 g/dL 11.6-15 L HCT (test code = 4544-3) 25.5 % 35.7-45.2 L MCV (test code = 787-2) 88.9 fL 80.6-95.5 MCH (test code = 785-6) 31.0 pg 25.9-32.8 MCHC (test code = 786-4) 34.9 g/dL 31.6-35.1 RDW-SD (test code = 88439-5) 55.9 fL 39-49.9 H RDW-CV (test code = 788-0) 17.1 % 12-15.5 H PLT (test code = 777-3) See_Comment [Automated message] The system which generated this result transmitted reference range: 166 - 358 10*3/?L. The reference range was not used to interpret this result as normal/abnormal. MPV (test code = 60913-9) 9.1 fL 9.5-12.9 L NRBC/100 WBC (test code = 6727988331) See_Comment [Automated message] The system which generated this result transmitted reference range: 0.0 - 10.0 /100 WBCs. The reference range was not used to interpret this result as normal/abnormal. NRBC x10^3 (test code = 3515807796) See_Comment [Automated message] The system which generated this result transmitted reference range: 10*3/?L. The reference range was not used to interpret this result as normal/abnormal. GRAN MAT (NEUT) % (test code = 770-8) 85.2 % IMM GRAN % (test code = 0344532966) 1.20 % LYMPH % (test code = 736-9) 8.6 % MONO % (test code = 5905-5) 3.8 % EOS % (test code = 713-8) 1.0 % BASO % (test code = 706-2) 0.2 % GRAN MAT x10^3(ANC) (test code = 2183587839) 14.08 10*3/uL 1.88-7.09 H IMM GRAN x10^3 (test code = 9399198302) 0.20 10*3/uL 0-0.06 H LYMPH x10^3 (test code = 731-0) 1.42 10*3/uL 1.32-3.29 MONO x10^3 (test code = 742-7) 0.62 10*3/uL 0.33-0.92 EOS x10^3 (test code = 711-2) 0.17 10*3/uL 0.03-0.39 BASO x10^3 (test code = 704-7) 0.04 10*3/uL 0.01-0.07 Lab Interpretation (test code = 21031-8) Abnormal [facility] WITH [id number] 10:30:21* Test Item Value Reference Range Interpretation Comme nts WBC (test code = 6690-2) See_Comment H [Automated message] The system which generated this result transmitted reference range: 4.30 - 11.10 10*3/?L. The reference range was not used to interpret this result as normal/abnormal. RBC (test code = 789-8) See_Comment L [Automated message] The system which generated this result transmitted reference range: 3.93 - 5.25 10*6/?L. The reference range was not used to interpret this result as normal/abnormal. HGB (test code = 718-7) 8.9 g/dL 11.6-15 L HCT (test code = 4544-3) 25.5 % 35.7-45.2 L MCV (test code = 787-2) 88.9 fL 80.6-95.5 MCH (test code = 785-6) 31.0 pg 25.9-32.8 MCHC (test code = 786-4) 34.9 g/dL 31.6-35.1 RDW-SD (test code = 04772-9) 55.9 fL 39-49.9 H RDW-CV (test code = 788-0) 17.1 % 12-15.5 H PLT (test code = 777-3) See_Comment [Automated message] The system which generated this result transmitted reference range: 166 - 358 10*3/?L. The reference range was not used to interpret this result as normal/abnormal. MPV (test code = 04842-0) 9.1 fL 9.5-12.9 L NRBC/100 WBC (test code = 1895386577) See_Comment [Automated message] The system which generated this result transmitted reference range: 0.0 - 10.0 /100 WBCs. The reference range was not used to interpret this result as normal/abnormal. NRBC x10^3 (test code = 8881703457) See_Comment [Automated message] The system which generated this result transmitted reference range: 10*3/?L. The reference range was not used to interpret this result as normal/abnormal. GRAN MAT (NEUT) % (test code = 770-8) 85.2 % IMM GRAN % (test code = 3036189479) 1.20 % LYMPH % (test code = 736-9) 8.6 % MONO % (test code = 5905-5) 3.8 % EOS % (test code = 713-8) 1.0 % BASO % (test code = 706-2) 0.2 % GRAN MAT x10^3(ANC) (test code = 4631910753) 14.08 10*3/uL 1.88-7.09 H IMM GRAN x10^3 (test code = 1162829075) 0.20 10*3/uL 0-0.06 H LYMPH x10^3 (test code = 731-0) 1.42 10*3/uL 1.32-3.29 MONO x10^3 (test code = 742-7) 0.62 10*3/uL 0.33-0.92 EOS x10^3 (test code = 711-2) 0.17 10*3/uL 0.03-0.39 BASO x10^3 (test code = 704-7) 0.04 10*3/uL 0.01-0.07 Lab Interpretation (test code = 94834-4) [facility]GLU[facility]CA2+2022-04-10 01:43:09* Test Item Value Reference Range Interpretation Comme nts PH (test code = 2) 7.35-7.45 PCO2 (test code = 4006774966) See_Comment [Automated messa ge] The system which generated this result transmitted reference range: 35 - 45 mmHg. The reference range was not used to interpret this result as normal/abnormal. PO2 (test code = 9878422854) See_Comment H [Automated messa ge] The system which generated this result transmitted reference range: 80 - 100 mmHg. The reference range was not used to interpret this result as normal/abnormal. HCO3 (test code = 4369400975) See_Comment H [Automated messa ge] The system which generated this result transmitted reference range: 22 - 26 mEq/L. The reference range was not used to interpret this result as normal/abnormal. BE (test code = 1067399614) See_Comment H [Automated messa ge] The system which generated this result transmitted reference range: -3.0 - 3.0 mEq/L. The reference range was not used to interpret this result as normal/abnormal. THB (test code = 5896969110) 10.4 g/dL 12-16 L %O2HB (test code = 7234325330) 98.2 % 94-99 %COHB ART (test code = 6996858964) 0.8 % 0-1.5 %METHB ART (test code = 5671007049) 0.3 % 0.4-1.5 L VOL%O2 ART (test code = 3422110923) 15.0 % 15-23 QUES NA (test code = 4355225050) 134 mmol/L 135-145 L K+ (test code = 0860583851) 2.4 mmol/L 3.5-5 LL AC CA IONZ (test code = 2895638797) 4.50 mg/dL 4.5-5.3 GLUCOSE (test code = 7056137894) 133 mg/dL 70-110 H Lab Interpretation (test code = 49887-7) [facility]+K+GLU[facility]CA2+2022-04-10 01:43:09* Test Item Value Reference Range Interpretation Comme nts PH (test code = 2) 7.35-7.45 PCO2 (test code = 5351446375) See_Comment [Automated messa ge] The system which generated this result transmitted reference range: 35 - 45 mmHg. The reference range was not used to interpret this result as normal/abnormal. PO2 (test code = 0919978755) See_Comment H [Automated messa ge] The system which generated this result transmitted reference range: 80 - 100 mmHg. The reference range was not used to interpret this result as normal/abnormal. HCO3 (test code = 1023295611) See_Comment H [Automated messa ge] The system which generated this result transmitted reference range: 22 - 26 mEq/L. The reference range was not used to interpret this result as normal/abnormal. BE (test code = 9957145372) See_Comment H [Automated messa ge] The system which generated this result transmitted reference range: -3.0 - 3.0 mEq/L. The reference range was not used to interpret this result as normal/abnormal. THB (test code = 9803167641) 10.4 g/dL 12-16 L %O2HB (test code = 7241328013) 98.2 % 94-99 %COHB ART (test code = 8596466398) 0.8 % 0-1.5 %METHB ART (test code = 3251009910) 0.3 % 0.4-1.5 L VOL%O2 ART (test code = 4525657013) 15.0 % 15-23 QUES NA (test code = 9966856184) 134 mmol/L 135-145 L K+ (test code = 9247502245) 2.4 mmol/L 3.5-5 LL AC CA IONZ (test code = 0691841054) 4.50 mg/dL 4.5-5.3 GLUCOSE (test code = 9404210437) 133 mg/dL 70-110 H Lab Interpretation (test code = 37093-5) [facility]+K+GLU+CA2+2022-04-10 01:42:24* Test Item Value Reference Range Interpretation Comme nts PH (test code = 2) 7.35-7.45 PCO2 (test code = 9455666002) See_Comment [Automated messa ge] The system which generated this result transmitted reference range: 35 - 45 mmHg. The reference range was not used to interpret this result as normal/abnormal. PO2 (test code = 4250638820) See_Comment H [Automated messa ge] The system which generated this result transmitted reference range: 80 - 100 mmHg. The reference range was not used to interpret this result as normal/abnormal. HCO3 (test code = 7849869939) See_Comment H [Automated messa ge] The system which generated this result transmitted reference range: 22 - 26 mEq/L. The reference range was not used to interpret this result as normal/abnormal. BE (test code = 6502733832) See_Comment [Automated messa ge] The system which generated this result transmitted reference range: -3.0 - 3.0 mEq/L. The reference range was not used to interpret this result as normal/abnormal. THB (test code = 1637880810) 10.0 g/dL 12-16 L %O2HB (test code = 7242973502) 98.4 % 94-99 %COHB ART (test code = 7789851524) 0.2 % 0-1.5 %METHB ART (test code = 9528079646) 0.3 % 0.4-1.5 L VOL%O2 ART (test code = 7856674615) 14.4 % 15-23 L QUES NA (test code = 0692324918) 135 mmol/L 135-145 K+ (test code = 6506496574) 2.7 mmol/L 3.5-5 LL AC CA IONZ (test code = 9333549937) 4.60 mg/dL 4.5-5.3 GLUCOSE (test code = 3078327570) 130 mg/dL 70-110 H Lab Interpretation (test code = 11794-2) [facility]+GLU[facility]CA2+2022-04-10 01:42:24* Test Item Value Reference Range Interpretation Comme nts PH (test code = 2) 7.35-7.45 PCO2 (test code = 4739730100) See_Comment [Automated messa ge] The system which generated this result transmitted reference range: 35 - 45 mmHg. The reference range was not used to interpret this result as normal/abnormal. PO2 (test code = 9567400731) See_Comment H [Automated messa ge] The system which generated this result transmitted reference range: 80 - 100 mmHg. The reference range was not used to interpret this result as normal/abnormal. HCO3 (test code = 4013895160) See_Comment H [Automated messa ge] The system which generated this result transmitted reference range: 22 - 26 mEq/L. The reference range was not used to interpret this result as normal/abnormal. BE (test code = 3167203079) See_Comment [Automated messa ge] The system which generated this result transmitted reference range: -3.0 - 3.0 mEq/L. The reference range was not used to interpret this result as normal/abnormal. THB (test code = 9292726717) 10.0 g/dL 12-16 L %O2HB (test code = 6732928843) 98.4 % 94-99 %COHB ART (test code = 7435296906) 0.2 % 0-1.5 %METHB ART (test code = 5236358440) 0.3 % 0.4-1.5 L VOL%O2 ART (test code = 8444380873) 14.4 % 15-23 L QUES NA (test code = 7465863280) 135 mmol/L 135-145 K+ (test code = 4743432509) 2.7 mmol/L 3.5-5 LL AC CA IONZ (test code = 7397395998) 4.60 mg/dL 4.5-5.3 GLUCOSE (test code = 6841156916) 130 mg/dL 70-110 H Lab Interpretation (test code = 67687-5) Abnormal [facility] Metabolic Panel (NA, K, CL, CO2, GLUCOSE, BUN, CREATININE, CA)2022-04-09 11:26:31* Test Item Value Reference Range Interpretation Comme nts NA (test code = 9621476071) 132 mmol/L 135-145 L K (test code = 9238025510) 3.8 mmol/L 3.5-5 CL (test code = 3158774397) 102 mmol/L 98-108 CO2 TOTAL (test code = 0759954085) 27 mmol/L 23-31 AGAP (test code = 9001797099) 2-16 BUN (test code = 2568899243) 14 mg/dL 7-23 GLUCOSE (test code = 0804460845) 106 mg/dL 70-110 CREATININE (test code = 6403163063) 0.68 mg/dL 0.5-1.04 CALCIUM (test code = 0007164057) 7.5 mg/dL 8.6-10.6 L eGFR (test code = 0822635038) mL/min/1.73m2 JUSTIN (test code = JUSTIN) Association of [...] or abnormalities in imaging tests). Lab Interpretation (test code = 51393-6) [facility]normal [facility] Edzin6670-83-61 11:26:31* Test Item Value Reference Range Interpretation Comme nts MAGNESIUM (test code = 3359261145) 1.7 mg/dL 1.7-2.4 Lab Interpretation (test cod e = 50381-0) Normal [facility] HospitalPhosphorus Hjuug3230-31-77 11:26:31* Test Item Value Reference Range Interpretation Comme nts PHOSPHORUS (test code = 6589905738) 2.9 mg/dL 2.5-5 Lab Interpretation (test cod e = 14235-3) Normal [facility] (ALB, T.PRO, BILI T, BU/BC, ALT, AST, ALK PHOS)2022-04-09 11:26:31* Test Item Value Reference Range Interpretation Comme nts TOTAL BILI (test code = 4536052339) 0.5 mg/dL 0.1-1.1 BILI UNCON (test code = 2383431127) 0.5 mg/dL 0.1-1.1 BILI CONJ (test code = 0088482745) 0.0 mg/dL 0-0.3 T PROTEIN (test code = 7808108385) 5.0 g/dL 6.3-8.2 L ALBUMIN (test code = 8798920777) 2.5 g/dL 3.5-5 L ALK PHOS (test code = 8460143340) 46 U/L 34-122 ALTv (test code = 1742-6) 19 U/L 5-35 AST(SGOT) (test code = 0387982515) 32 U/L 13-40 Lab Interpretation (test cod e = 49273-0) Abnormal [facility] HospitalLipase Hljpm0216-39-54 11:26:31* Test Item Value Reference Range Interpretation Comme nts LIPASE (test code = 1263932068) 442 U/L 0-220 H Lab Interpretation (test cod e = 47013-5) [facility]normal [facility] (NA, K, CL, CO2, GLUCOSE, BUN, CREATININE, CA)2022-04-09 11:26:31* Test Item Value Reference Range Interpretation Comme nts NA (test code = 1456777443) 132 mmol/L 135-145 L K (test code = 1380688226) 3.8 mmol/L 3.5-5 CL (test code = 0465553607) 102 mmol/L 98-108 CO2 TOTAL (test code = 0626812893) 27 mmol/L 23-31 AGAP (test code = 0002812581) 2-16 BUN (test code = 1980097861) 14 mg/dL 7-23 GLUCOSE (test code = 8513504008) 106 mg/dL 70-110 CREATININE (test code = 2530857193) 0.68 mg/dL 0.5-1.04 CALCIUM (test code = 8543894088) 7.5 mg/dL 8.6-10.6 L eGFR (test code = 4555206243) mL/min/1.73m2 JUSTIN (test code = JUSTIN) Association of [...] or abnormalities in imaging tests). Lab Interpretation (test code = 10023-6) [facility]normal [facility] HospitalMagnesium Frspy9009-93-03 11:26:31* Test Item Value Reference Range Interpretation Comme nts MAGNESIUM (test code = 3535705479) 1.7 mg/dL 1.7-2.4 Lab Interpretation (test cod e = 58086-6) Normal [facility] HospitalPhosphorus Pixlf5097-16-81 11:26:31* Test Item Value Reference Range Interpretation Comme nts PHOSPHORUS (test code = 2762030377) 2.9 mg/dL 2.5-5 Lab Interpretation (test cod e = 28979-0) Normal [facility] (ALB, T.PRO, BILI T, BU/BC, ALT, AST, ALK PHOS)2022-04-09 11:26:31* Test Item Value Reference Range Interpretation Comme nts TOTAL BILI (test code = 2086143336) 0.5 mg/dL 0.1-1.1 BILI UNCON (test code = 3698113789) 0.5 mg/dL 0.1-1.1 BILI CONJ (test code = 6677092193) 0.0 mg/dL 0-0.3 T PROTEIN (test code = 7088431222) 5.0 g/dL 6.3-8.2 L ALBUMIN (test code = 7812841750) 2.5 g/dL 3.5-5 L ALK PHOS (test code = 2153140257) 46 U/L 34-122 ALTv (test code = 1742-6) 19 U/L 5-35 AST(SGOT) (test code = 4353909181) 32 U/L 13-40 Lab Interpretation (test cod e = 76151-2) [facility]normal [facility] HospitalLipase Ghluk1540-25-24 11:26:31* Test Item Value Reference Range Interpretation Comme nts LIPASE (test code = 5554759286) 442 U/L 0-220 H Lab Interpretation (test cod e = 52719-5) [facility] HospitalCBC with [id number] 11:06:29* Test Item Value Reference Range Interpretation Comme nts WBC (test code = 6690-2) See_Comment H [Automated message] The system which generated this result transmitted reference range: 4.30 - 11.10 10*3/?L. The reference range was not used to interpret this result as normal/abnormal. RBC (test code = 789-8) See_Comment L [Automated message] The system which generated this result transmitted reference range: 3.93 - 5.25 10*6/?L. The reference range was not used to interpret this result as normal/abnormal. HGB (test code = 718-7) 9.6 g/dL 11.6-15 L HCT (test code = 4544-3) 28.8 % 35.7-45.2 L MCV (test code = 787-2) 89.2 fL 80.6-95.5 MCH (test code = 785-6) 29.7 pg 25.9-32.8 MCHC (test code = 786-4) 33.3 g/dL 31.6-35.1 RDW-SD (test code = 51130-4) 55.3 fL 39-49.9 H RDW-CV (test code = 788-0) 17.1 % 12-15.5 H PLT (test code = 777-3) See_Comment [Automated message] The system which generated this result transmitted reference range: 166 - 358 10*3/?L. The reference range was not used to interpret this result as normal/abnormal. MPV (test code = 06126-8) 9.1 fL 9.5-12.9 L NRBC/100 WBC (test code = 0673009019) See_Comment [Automated message] The system which generated this result transmitted reference range: 0.0 - 10.0 /100 WBCs. The reference range was not used to interpret this result as normal/abnormal. NRBC x10^3 (test code = 7681930603) See_Comment [Automated message] The system which generated this result transmitted reference range: 10*3/?L. The reference range was not used to interpret this result as normal/abnormal. GRAN MAT (NEUT) % (test code = 770-8) 88.3 % IMM GRAN % (test code = 0830478781) 0.60 % LYMPH % (test code = 736-9) 8.1 % MONO % (test code = 5905-5) 2.5 % EOS % (test code = 713-8) 0.3 % BASO % (test code = 706-2) 0.2 % GRAN MAT x10^3(ANC) (test code = 9557710961) 17.92 10*3/uL 1.88-7.09 H IMM GRAN x10^3 (test code = 1364013883) 0.12 10*3/uL 0-0.06 H LYMPH x10^3 (test code = 731-0) 1.65 10*3/uL 1.32-3.29 MONO x10^3 (test code = 742-7) 0.51 10*3/uL 0.33-0.92 EOS x10^3 (test code = 711-2) 0.07 10*3/uL 0.03-0.39 BASO x10^3 (test code = 704-7) 0.04 10*3/uL 0.01-0.07 BROWN CELLS (test code = 7790-9) 3+ See_Comment A [Automated message] The system which generated this result transmitted reference range: (none). The reference range was not used to interpret this result as normal/abnormal. BANDS (test code = 4768041817) MARKED INCREASED A Lab Interpretation (test code = 52730-3) Abnormal [facility] with [id number] 11:06:29* Test Item Value Reference Range Interpretation Comme nts WBC (test code = 6690-2) See_Comment H [Automated message] The system which generated this result transmitted reference range: 4.30 - 11.10 10*3/?L. The reference range was not used to interpret this result as normal/abnormal. RBC (test code = 789-8) See_Comment L [Automated message] The system which generated this result transmitted reference range: 3.93 - 5.25 10*6/?L. The reference range was not used to interpret this result as normal/abnormal. HGB (test code = 718-7) 9.6 g/dL 11.6-15 L HCT (test code = 4544-3) 28.8 % 35.7-45.2 L MCV (test code = 787-2) 89.2 fL 80.6-95.5 MCH (test code = 785-6) 29.7 pg 25.9-32.8 MCHC (test code = 786-4) 33.3 g/dL 31.6-35.1 RDW-SD (test code = 18463-2) 55.3 fL 39-49.9 H RDW-CV (test code = 788-0) 17.1 % 12-15.5 H PLT (test code = 777-3) See_Comment [Automated message] The system which generated this result transmitted reference range: 166 - 358 10*3/?L. The reference range was not used to interpret this result as normal/abnormal. MPV (test code = 64741-3) 9.1 fL 9.5-12.9 L NRBC/100 WBC (test code = 1255855678) See_Comment [Automated message] The system which generated this result transmitted reference range: 0.0 - 10.0 /100 WBCs. The reference range was not used to interpret this result as normal/abnormal. NRBC x10^3 (test code = 2118409352) See_Comment [Automated message] The system which generated this result transmitted reference range: 10*3/?L. The reference range was not used to interpret this result as normal/abnormal. GRAN MAT (NEUT) % (test code = 770-8) 88.3 % IMM GRAN % (test code = 6332010598) 0.60 % LYMPH % (test code = 736-9) 8.1 % MONO % (test code = 5905-5) 2.5 % EOS % (test code = 713-8) 0.3 % BASO % (test code = 706-2) 0.2 % GRAN MAT x10^3(ANC) (test code = 8493287471) 17.92 10*3/uL 1.88-7.09 H IMM GRAN x10^3 (test code = 7476811905) 0.12 10*3/uL 0-0.06 H LYMPH x10^3 (test code = 731-0) 1.65 10*3/uL 1.32-3.29 MONO x10^3 (test code = 742-7) 0.51 10*3/uL 0.33-0.92 EOS x10^3 (test code = 711-2) 0.07 10*3/uL 0.03-0.39 BASO x10^3 (test code = 704-7) 0.04 10*3/uL 0.01-0.07 BROWN CELLS (test code = 7790-9) 3+ See_Comment A [Automated message] The system which generated this result transmitted reference range: (none). The reference range was not used to interpret this result as normal/abnormal. BANDS (test code = 1358809939) MARKED INCREASED A Lab Interpretation (test code = 83944-8) Abnormal [facility] METABOLIC PANEL (NA, K, CL, CO2, GLUCOSE, BUN, CREATININE, CA)2022-04-08 19:58:28* Test Item Value Reference Range Interpretation Comme nts NA (test code = 2358749747) 136 mmol/L 135-145 K (test code = 5930884670) 2.9 mmol/L 3.5-5 LL CL (test code = 9742705852) 102 mmol/L 98-108 CO2 TOTAL (test code = 2727416923) 27 mmol/L 23-31 AGAP (test code = 8632925998) 2-16 BUN (test code = 3757317018) 14 mg/dL 7-23 GLUCOSE (test code = 2572831467) 117 mg/dL 70-110 H CREATININE (test code = 8485374314) 0.70 mg/dL 0.5-1.04 CALCIUM (test code = 4874540084) 7.5 mg/dL 8.6-10.6 L eGFR (test code = 8560652349) mL/min/1.73m2 JUSTIN (test code = JUSTIN) Association of [...] or abnormalities in imaging tests). Lab Interpretation (test code = 47788-5) Abnormal [facility] METABOLIC PANEL (NA, K, CL, CO2, GLUCOSE, BUN, CREATININE, CA)2022-04-08 19:58:28* Test Item Value Reference Range Interpretation Comme nts NA (test code = 7454607175) 136 mmol/L 135-145 K (test code = 8535751265) 2.9 mmol/L 3.5-5 LL CL (test code = 3559129466) 102 mmol/L 98-108 CO2 TOTAL (test code = 4456260737) 27 mmol/L 23-31 AGAP (test code = 4009935436) 2-16 BUN (test code = 5902621090) 14 mg/dL 7-23 GLUCOSE (test code = 2749121259) 117 mg/dL 70-110 H CREATININE (test code = 4464773303) 0.70 mg/dL 0.5-1.04 CALCIUM (test code = 3184263702) 7.5 mg/dL 8.6-10.6 L eGFR (test code = 5782950496) mL/min/1.73m2 JUSTIN (test code = JUSTIN) Association of [...] or abnormalities in imaging tests). Lab Interpretation (test code = 07685-8) Abnormal [facility] WITH [id number] 17:53:58* Test Item Value Reference Range Interpretation Comme nts WBC (test code = 6690-2) See_Comment H [Automated message] The system which generated this result transmitted reference range: 4.30 - 11.10 10*3/?L. The reference range was not used to interpret this result as normal/abnormal. RBC (test code = 789-8) See_Comment L [Automated message] The system which generated this result transmitted reference range: 3.93 - 5.25 10*6/?L. The reference range was not used to interpret this result as normal/abnormal. HGB (test code = 718-7) 9.3 g/dL 11.6-15 L HCT (test code = 4544-3) 27.5 % 35.7-45.2 L MCV (test code = 787-2) 88.4 fL 80.6-95.5 MCH (test code = 785-6) 29.9 pg 25.9-32.8 MCHC (test code = 786-4) 33.8 g/dL 31.6-35.1 RDW-SD (test code = 28128-1) 54.3 fL 39-49.9 H RDW-CV (test code = 788-0) 16.6 % 12-15.5 H PLT (test code = 777-3) See_Comment [Automated message] The system which generated this result transmitted reference range: 166 - 358 10*3/?L. The reference range was not used to interpret this result as normal/abnormal. MPV (test code = 11177-5) 8.8 fL 9.5-12.9 L NRBC/100 WBC (test code = 6420165247) See_Comment [Automated message] The system which generated this result transmitted reference range: 0.0 - 10.0 /100 WBCs. The reference range was not used to interpret this result as normal/abnormal. NRBC x10^3 (test code = 8074978936) See_Comment [Automated message] The system which generated this result transmitted reference range: 10*3/?L. The reference range was not used to interpret this result as normal/abnormal. GRAN MAT (NEUT) % (test code = 770-8) 89.0 % IMM GRAN % (test code = 9795584184) 0.40 % LYMPH % (test code = 736-9) 5.5 % MONO % (test code = 5905-5) 4.9 % EOS % (test code = 713-8) 0.1 % BASO % (test code = 706-2) 0.1 % GRAN MAT x10^3(ANC) (test code = 8802211577) 12.30 10*3/uL 1.88-7.09 H IMM GRAN x10^3 (test code = 7669999255) 0.06 10*3/uL 0-0.06 LYMPH x10^3 (test code = 731-0) 0.76 10*3/uL 1.32-3.29 L MONO x10^3 (test code = 742-7) 0.67 10*3/uL 0.33-0.92 EOS x10^3 (test code = 711-2) 0.03-0.39 L BASO x10^3 (test code = 704-7) 0.01-0.07 Lab Interpretation (test code = 26197-3) Abnormal [facility] WITH [id number] 17:53:58* Test Item Value Reference Range Interpretation Comme nts WBC (test code = 6690-2) See_Comment H [Automated message] The system which generated this result transmitted reference range: 4.30 - 11.10 10*3/?L. The reference range was not used to interpret this result as normal/abnormal. RBC (test code = 789-8) See_Comment L [Automated message] The system which generated this result transmitted reference range: 3.93 - 5.25 10*6/?L. The reference range was not used to interpret this result as normal/abnormal. HGB (test code = 718-7) 9.3 g/dL 11.6-15 L HCT (test code = 4544-3) 27.5 % 35.7-45.2 L MCV (test code = 787-2) 88.4 fL 80.6-95.5 MCH (test code = 785-6) 29.9 pg 25.9-32.8 MCHC (test code = 786-4) 33.8 g/dL 31.6-35.1 RDW-SD (test code = 60429-3) 54.3 fL 39-49.9 H RDW-CV (test code = 788-0) 16.6 % 12-15.5 H PLT (test code = 777-3) See_Comment [Automated message] The system which generated this result transmitted reference range: 166 - 358 10*3/?L. The reference range was not used to interpret this result as normal/abnormal. MPV (test code = 94815-6) 8.8 fL 9.5-12.9 L NRBC/100 WBC (test code = 3136819529) See_Comment [Automated message] The system which generated this result transmitted reference range: 0.0 - 10.0 /100 WBCs. The reference range was not used to interpret this result as normal/abnormal. NRBC x10^3 (test code = 3853573882) See_Comment [Automated message] The system which generated this result transmitted reference range: 10*3/?L. The reference range was not used to interpret this result as normal/abnormal. GRAN MAT (NEUT) % (test code = 770-8) 89.0 % IMM GRAN % (test code = 3172418354) 0.40 % LYMPH % (test code = 736-9) 5.5 % MONO % (test code = 5905-5) 4.9 % EOS % (test code = 713-8) 0.1 % BASO % (test code = 706-2) 0.1 % GRAN MAT x10^3(ANC) (test code = 9149539795) 12.30 10*3/uL 1.88-7.09 H IMM GRAN x10^3 (test code = 8122520266) 0.06 10*3/uL 0-0.06 LYMPH x10^3 (test code = 731-0) 0.76 10*3/uL 1.32-3.29 L MONO x10^3 (test code = 742-7) 0.67 10*3/uL 0.33-0.92 EOS x10^3 (test code = 711-2) 0.03-0.39 L BASO x10^3 (test code = 704-7) 0.01-0.07 Lab Interpretation (test code = 27710-2) [facility] [id number] 12:00:58* Test Item Value Reference Range Interpretation Comme nts ABO & RH (test code = 20) O POSITIVE Performed at [facility] Laboratory Services - [facility] Blood [address] Free: [phone] No. [id number] IAT (test code = 1185) Negative Performed at [facility] Laboratory Services [address] Free: [phone] No. [id number] [facility] [id number] 12:00:58* Test Item Value Reference Range Interpretation Comme nts ABO & RH (test code = 20) O POSITIVE Performed at [facility] Laboratory Services - [address] Free: [phone] No. [id number] IAT (test code = 1185) Negative Performed at [facility] Laboratory Services - [address] Free: [phone] No. [id number] [facility] Consult Notes Date/Time Note Provider Source 2024-02-27 10:50:00 Associated Order(s): CONSULT ADULT OCCUPATIONAL THERAPY 02/27/2024 OCCUPATIONAL THERAPY NOTE: Duplicate consult. Pt already being followed by this service line. Please refer to OT evaluation completed yesterday. Thank you. Elyssa Maher, OTR, OTD [facility] 2024-02-27 10:11:37 Associated Order(s): CONSULT FOOD AND NUTRITION MEDICAL NUTRITION THERAPY ASSESSMENT NOTE Follow up NUTRITION ASSESSMENT: PMH/PSH: Past Medical History: Diagnosis Date Collagenous colitis HTN (hypertension) Past Surgical History: Procedure Laterality Date APPENDECTOMY ENDOSCOPIC RETROGRADE CHOLANGIOPANCRETOGRAPHY N/A 02/21/2022 Surgeon: Christos Denny MD; Location: ENDOSCOPY ([facility]) OR LOCATION ESOPHAGOGASTRODUODENOSCOPY N/A 11/19/2021 Surgeon: Abiodun Shah MD; Location: ENDOSCOPY ([facility]) OR LOCATION ESOPHAGOGASTRODUODENOSCOPY N/A 07/12/2023 Surgeon: Christos Denny MD; Location: ENDOSCOPY ([facility]) OR LOCATION EXCISION HEPATOPANCREATIC AMPULLA ([facility]) N/A 04/08/2022 Surgeon: Erasmo Tovar MD; Location: [facility] OR LOCATION HIP DEBRIDEMENT Right 02/26/2024 Surgeon: Radha Lozano MD; Location: [facility] OR LOCATION HIP HEMIARTHROPLASTY Right 01/28/2024 Surgeon: Radha Lozano MD; Location: [facility] OR LOCATION PHACOEMULSIFICATION OF CATARACT WITH INTRAOCULAR LENS IMPLANT Left 10/25/2023 Surgeon: Rajiv Rudolph MD; Location: [facility] OR LOCATION PHACOEMULSIFICATION OF CATARACT WITH INTRAOCULAR LENS IMPLANT Right 11/29/2023 Surgeon: Rajiv Rudolph MD; Location: [facility] OR LOCATION UPPER ULTRASOUND (SHX) N/A 11/19/2021 Surgeon: Abiodun Shah MD; Location: ENDOSCOPY ([facility]) OR LOCATION UPPER ULTRASOUND (SHX) N/A 07/12/2023 Surgeon: Christos Denny MD; Location: ENDOSCOPY ([facility]) OR LOCATION Current Medical Condition: per provider documentation- pt with PMH 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 Spoke with pt and family member at bedside. Pt eating breakfast at time of visit with good PO intake of eggs and cream of wheat, but states that her dentures are lost and therefore now with new on-set chewing difficulty. RD d/w pt options and pt open to altered texture diet at this time. Of note, pt NPO 02/25 for hip debridement and without intake. Pt does endorse good appetite and denies any other issues with eating/intake at this time. Pt with Crevonnie on-board, states she has been on medication a few months and denies any issues with BM's at this time reporting as "normal". Of note pt does not like traditional Ensure and has not been drinking it. Pt open to trialling Ensure Clear to supplement intake. Nursing GI Assessment: Abdomen inspection: Non-distended Reported/observed symptoms: None; Last BM: 02/23/24 Edema/Ascites: none Wounds per LDA/Avatar: Surgical Wound- R hip, skin tear R juan Pertinent Medications: lipitor, cholecalciferol (5000 units daily), norco, LR 50 ml/hr, synthroid, Creon (2-3 with meals), protonix Lab and Medical Test Results: CBC: Recent Labs 02/25/24 1244 02/26/24 0528 02/27/24 0342 WBC 9.42 10.05 9.82 RBC 2.60* 2.47* 3.05* HGB 7.9* 7.6* 8.9* HCT 23.7* 22.4* 26.7* MCV 91.2 90.7 87.5 MCHC 33.3 33.9 33.3 BMP: Recent Labs 02/24/24 1723 02/25/24 0418 02/26/24 0528 02/27/24 0342 NA 124* 130* 131* 129* K 3.0* 3.3* 3.4* 3.7 CL 94* 99 100 97* TCO2 26 25 24 25 AGAP 4 6 7 7 MG -- 1.6* 1.9 1.7 GLU 109 90 84 102 BUN 17 18 14 11 CREAT 0.78 0.77 0.62 0.66 EGFR 78.3 79.6 91.9 90.5 CA 8.2* 8.0* 8.1* 7.9* ALB 2.6* -- -- -- Anthropometrics: 79 year old female Ht Readings from Last 1 Encounters: 02/25/24 1.651 m (5' 5") Admission Wts: 02/24: 47.6 kg (105 lb) 01/27/24 55.2 kg (121 lb 11.1 oz) 01/18/24 52.6 kg (116 lb) 01/02/24 53.6 kg (118 lb 1.6 oz) BMI: Body mass index is 17.47 kg/m?. (Underweight ) IBW: 56.8 kg %IBW: 83% Estimated Energy Needs Calories: 3212-5728 kcal/day; 30-35 kcals/kg Current Weight Protein: 57-95 g/day, 1.2-2 g/kg Current Weight Fluid: 0705-7300 ml/day (1 ml/kcal) or per MD/Medical Team Current Dietary Order(s): Oral Supplements: Ensure Plus High Protein (1.5 kcal/mL, Protein 23% of kcal); 1 bottle = 240 mL; No Regular Diet; Diet Texture: Regular Food Allergies/Cultural or Nondenominational Preferences: Allergies Allergen Reactions Morphine Other - See comments Feel "Jittery and displaced" NUTRITION DIAGNOSIS: (Active nutrition diagnosis) Nutrition Dx 1: Severe malnutrition in the context of acute illness Related to: diminished ability to consume sufficient intake 2/2 hip pain and recent hospitilizations As Evidenced by: pt with decreased intake of <75% x 1 months, bw loss of 13.23% x 1 month, moderate fat loss, mild muscle wasting, and underweight BMI of 17.47. NUTRITION INTERVENTION: 1. Recommend continue current diet with texture alteration Minced and Moist (IDDSI level 5) for chewing difficulty (pended awaiting MD approval) 2. Recommend Ensure Clear QID with meals to provide an additional 720 kcal, 32 g protein in the setting of wt loss and malnutrition (pended awaiting MD approval) 3. Monitor lytes and replete as needed per provider 4. If pt unable to consume >60% of estimated needs, could consider supplemental EN -consult RD 5. Monitor intakes, wt, labs, BM NUTRITION MONITORING AND EVALUATION: A registered dietitian will f/u in as indicated and review patients progress towards nutrition goals, report nutrition related information and to revise the nutrition recommendations and interventions. Goals: 1. Patient will consume >75% of meals within 3 days (New Goal Identified) 2. Patient will consume at least one Ensure Clear supplement per day (New Goal Identified) Discharge Needs: Undetermined at this time Kelly Rudolph RD Clinical Dietitian Office Kelly Rudolph RD [facility] 2024-02-26 09:12:00 Associated Order(s): CONSULT ADULT PHYSICAL THERAPY Images from the original note were not included. Patient agreeable to working with physical therapy. Patient met supine. Recommend nursing staff utilize rolling walker Min assistance ( WBAT RT LE) to safely assist patient with mobility out of the bed or chair. PHYSICAL THERAPY EVALUATION Consult received, chart reviewed and evaluation complete this date. Patient is referred to PT for evaluation and treatment. Patient is a 79 year old female who presents to hospital for Hyponatremia [E87.1] Bleeding [R58] . Discharge Recommendations: Therapy Needs and Potential: Patient would benefit from continued physical therapy services to address: decline in bed mobility decline in transfers decreased strength decreased endurance decreased coordination decreased motor planning Patient demonstrates good potential to improve and meet therapy goals with further physical therapy services. Patient appears motivated to improve their functional mobility and return to their previous level of function. Patient demonstrates ability to tolerate atleast 30-60 minutes of physical therapy with active participation. Challenges to Home Transition: increased risk of falls decreased caregiver availability decreased safety awareness environmental barriers Equipment recommendations: Patient has or access to necessary equipment Patient would benefit from Inpatient Rehab upon discharge. Current Functional Status and/or Treatment: AM-PAC 6 Clicks (Raw Score 0=Dependent, 24=Independent; Low function Raw Score 0= Dependent, 32=Independent): Raw Score - Basic Mobility : 18 T-Scale Score - Basic Mobility : 41.05 Bed Mobility: Rolling: Minimal Assistance Supine-sit: Minimal Assistance Sit to supine: Minimal Assistance Educated on log rolling, body mechanics, hand placement and slow movements. Dizziness Yes Transfers: Sit to stand: Minimal Assistance using rolling Walker. Stand to sit: Minimal Assistance using rolling Walker. Static/dynamic standing balance: Fair Verbal cueing provided for correct hand placement and correct use of AD Educated on foot placement, walker positioning, WBAT RT LE, and using quads to stand from sitting position. Dizziness Yes Ambulation: Assisted patient with ambulation as follows: 20 feet using rolling Walker. and Minimal Assistance. Patient presenting with antalgic gait pattern. Instructed patient in directional changes and head movements in all planes during gait trial resulting in 0 instability and 0 LOB. Educated on weight bearing precautions, heel to toe gait and to keep the walker close by to prevent falls. Dizziness Yes Therapeutic exercise: patient educated in Compensatory techniques/adaptive strategies, Deep breathing, Energy conservation, Fall prevention, Relaxation/breathing techniques, and Hip precautions., instructed patient in the following: ankle pumps, quad sets, glut sets, long arc quads, patient/caregiver instructed to perform HEP 3 times per day, 15 repetitions., and patient/caregiver verbalizes understanding of instructions. Patient education on using the right muscles while exercising. Functional Outcome Measures: (Values within the past 12 hours) Tinetti Gait Score- # / 12 Initiation of gait: Hesitancy or multiple attempts to start Step length: Only on foot passes the other Foot clearance: Only one foot clears the floor during swing phase Step Symmetry: Step lengths not equal Step continuity: Stopping/dis-continuous steps Path: Mild/moderate deviation or uses AD Trunk: No sway, but flex of knees/ back or spreads arms Walking: Heels apart Tinetti Gait Score: 4 Tinetti Gait Score Interpretation: < 7 - Increased risk for falls TINETTI BALANCE SCORE- # / 16 Sitting balance: Leans or slides in chair Arises: Able, uses arms to help Attempts to Rise: Able, requires > 1 Immediate standing balance (first 5 sec): Steady but uses walker or other support Standing Balance: Steady but OTIS > 4 inches or uses AD/other support Nudged 3 times *: Begins to fall Eyes closed*: Unsteady Turning 360 degrees: Discontinuous steps and unsteady Sitting down: Uses arms or motion not smooth Tinetti Balance Score: 5 Tinetti Balance Interpretation: < 9 - Increased risk for falls After session, patient supine. Call button provided. Daughter present. Nursing notified. PLAN OF CARE: While in the hospital, PT will follow patient at least 3 times per week,once or twice a day, per patient's tolerance and needs. See below for complete details. Admit Date: 02/24/2024 Hospital Diagnosis:Hyponatremia [E87.1] Bleeding [R58] PT Diagnosis: Difficulty walking, Weakness, Vertigo/dizziness, Pain, and Abnormality of gait and balance Weight Bearing Precaution: WBAT, Right, LE General Precautions: PPE used:Gloves, General, Fall, Bracing/Cast present or required:N/A PMH: Past Medical History: Diagnosis Date Collagenous colitis HTN (hypertension) PSH: Past Surgical History: Procedure Laterality Date APPENDECTOMY ENDOSCOPIC RETROGRADE CHOLANGIOPANCRETOGRAPHY N/A 02/21/2022 Surgeon: Christos Denny MD; Location: ENDOSCOPY ([facility]) OR LOCATION ESOPHAGOGASTRODUODENOSCOPY N/A 11/19/2021 Surgeon: Abiodun Shah MD; Location: ENDOSCOPY ([facility]) OR LOCATION ESOPHAGOGASTRODUODENOSCOPY N/A 07/12/2023 Surgeon: Christos Denny MD; Location: ENDOSCOPY ([facility]) OR LOCATION EXCISION HEPATOPANCREATIC AMPULLA ([facility]) N/A 04/08/2022 Surgeon: Erasmo Tovar MD; Location: [facility] OR LOCATION HIP HEMIARTHROPLASTY Right 01/28/2024 Surgeon: Radha Lozano MD; Location: [facility] OR LOCATION PHACOEMULSIFICATION OF CATARACT WITH INTRAOCULAR LENS IMPLANT Left 10/25/2023 Surgeon: Rajiv Rudolph MD; Location: [facility] OR LOCATION PHACOEMULSIFICATION OF CATARACT WITH INTRAOCULAR LENS IMPLANT Right 11/29/2023 Surgeon: Rajiv Rudolph MD; Location: [facility] OR LOCATION UPPER ULTRASOUND (SHX) N/A 11/19/2021 Surgeon: Abiodun Shah MD; Location: ENDOSCOPY ([facility]) OR LOCATION UPPER ULTRASOUND (SHX) N/A 07/12/2023 Surgeon: Christos Denny MD; Location: ENDOSCOPY ([facility]) OR LOCATION Prior Living Situation: lives with their spouse, in a house, and elevated beech house and has lift., DME: Rolling Walker Prior level of Mobility: community ambulation, house hold ambulation Suspected ischemic or hemorraghic stroke:No Subjective: Patient says she is hurting. Patient/Family Goals: Get better. Patient/Family verbalizes understanding of condition: Yes PAIN: -Pain Description: constant -Pain Location: Right hip -Pain rating before treatment: 4, After treatment: 4 -Pain Management: Reports taking pain meds, Nursing Notified, and Decreased movement aides in some pain reduction COMMUNICATION Primary Language: Namibian Able to Verbalize needs: Yes Vision:good; no issues reported Hearing:good; no issues reported ORIENTATION/COGNITION: Oriented to: person, place, date/time, and situation Awake: Yes Alert: Yes Dizzy: Yes Follows Commands: Yes 1-Step Yes Multi-Step Yes Inconsistent: No NEUROLOGICAL Light Touch: within functional limits bilateral LE, Heel to araya: Unable Tone: WFL BALANCE: Sitting: Static: Excellent Dynamic: Excellent Standing: Static: Fair Dynamic: Fair RANGE OF MOTION: within functional limits bilateral LE, STRENGTH: 3/5 (F), bilateral LE ENDURANCE: Fair, Room air SKIN INTEGRITY: Defer to nursing., PROBLEM LIST: Decline in bed mobility, Decline in gait, Decline in transfers, Decreased strength, Decreased endurance, Weight bearing restrictions, Safety awareness deficits, Pain, Decreased Coordination, and Decreased Motor Planning ASSESSMENT: Patient is a 79 year old female seen secondary to the above listed diagnosis. Patient would benefit from continued PT to address the above listed deficits to maximize independence and safety with functional mobility. Rehabilitation Potential: guarded Goals: The following goals are to maximize independence and safety with functional mobility to eventually return to prior living situation and prior functional status. Upon discharge, patient and/or family will demonstrate the followin. Rolling: Independent Bridging: Independent Supine-sit: Independent Sit to supine: Independent 2. Sit to stand: Independent using rolling Walker. Stand to sit: Independent using rolling Walker. 3. Independent with ambulation, Feet: 300 using least assistive device. Treatment Plan: Gait training, Therapeutic exercise, Transfer training, Balance training, Bed mobility training, Equipment needs assessment, Safety education, patient/caregiver education, Neuromuscular Re-Education, and Functional Motor Training PATIENT EDUCATION: Patient and Family member provided with preferred teaching of verbal information on role of PT, plan of care, HEP. Shows readiness to learn. Verbal instruction teaching provided. Individual is able to read and verbalizes understanding of teaching provided. Total Time Tx Codes in Minutes: 24 min Total Treatment Time in Minutes: 38 min Torres Mayorga PT, DPT, MS Department of Rehabilitation Services [facility] A physical therapy evaluation of high complexity was completed based on meeting at the criteria below: A history of present problem with at least 3 or more personal factors (includes environmental factors) and/or comorbidities that impact the plan of care An examination of body systems using standardized tests and measures addressing a total of at least 4 or more elements from any of the following: body structures and functions, activity limitations, and/or participation limitations A clinical presentation with unstable and unpredictable characteristics T [facility] 2024-02-26 08:40:00 Associated Order(s): CONSULT ADULT OCCUPATIONAL THERAPY OT GENERAL EVALUATION Consult received via [employer], EMR reviewed and evaluation completed 02/26/24. Patient referred to occupational therapy for evaluation and treatment secondary to bleeding from incision site. Pt s/p R hip hemiarthroplasty on 01/28/24. Patient well known to this service line from previous admit. Patient agreeable to participate in occupational therapy. Discharge Recommendations: Therapy Needs and Potential:- Patient would benefit from continued skilled occupational therapy services to address: Decline in basic activities of daily living, Decline in instrumental activities of daily living, Decreased strength, and Decreased range of motion - Patient demonstrates good potential to improve and meet therapy goals with further skilled occupational therapy services. - Patient appears motivated to improve their BADLS AND IADLs and return to their previous level of function. - Patient demonstrates ability to tolerate at least 30-60 minutes of active participation in occupational therapy. - Patient able to follow commands: 1-step Yes, Multi-step Yes, Inconsistencies No Challenges to Home Transition:- Requires physical assistance for BADLS - Requires physical assistance for IADLS - Limited caregiver availability- pt's spouse currently hospitalized and unable to assist with care and pt's daughter lives in [place] - Increased risk of falls - Environmental barriers Equipment Recommendations: Pt already owns hip kit from prior hospitalization however does not have it with her in hospital PLAN OF CARE: At least 3x/week Precautions: Weight bearing status: WBAT R LE General: Fall, Posterior hip precautions, and XDRO Bracing: N/A Subjective: "I'm in a lot of pain." Current Occupational Performance and/or Treatment: AM-PAC 6 Clicks (Raw Score 0=Dependent, 24=Independent; Low function Raw Score 0= Dependent, 32=Independent): Raw Score - Daily Activity: 17 T-Scale Score - Daily Activity: 37.26 Feeding: Independent, pt takes medication from RN and sips water from cup with straw while semireclining in bed Grooming: Independent, pt washes face with damp washcloth and brushes teeth while semireclining in bed LB Dressing: Moderate Assistance, pt adjusts L sock with hip/knee flexion while semireclining in bed, unable to reach R foot due to hip precautions Toilet Transfer: Minimal Assistance, simulates with sit<>stand EOB with RW; verbal cues for body mechanics; educated on bedside commode to maintain hip precautions, therapist orders for pt's room Toilet Hygiene: Total Assistance, pure wick Functional Mobility: Supine<>EOB with minimal assistance Verbal cues throughout for strategy Minimal Assistance to reposition self closer to EOB Pt stands with RW for ~1 minute, endorses increased pain and requests to return to bed Extended time on all tasks due to pt's increased pain, cues for relaxation/breathing throughout Patient/caregiver educated on: Adaptive equipment (Bedside commode), ADL training (simulated toilet transfer, bed mobility), Fall prevention, Relaxation/breathing techniques (pain management), Role of OT, Safety awareness (purpose of bed alarm and staff assist for transfers), WB restrictions, and Hip precautions Patient left semireclining in bed with call sosa in reach. Bed alarm engaged, nursing staff notified. Please, see full evaluation below for more detail. OT EVALUATION: 79 year old female Admit date: 02/24/2024 Date of onset: Admit Diagnosis: Hyponatremia [E87.1] Bleeding [R58] OT Diagnosis: Impaired BADL independence, Impaired IADL independence, Weakness, Activity intolerance, Impaired self-care mobility, and Reduced joint ROM PMH: Past Medical History: Diagnosis Date Collagenous colitis HTN (hypertension) PSH: Past Surgical History: Procedure Laterality Date APPENDECTOMY ENDOSCOPIC RETROGRADE CHOLANGIOPANCRETOGRAPHY N/A 02/21/2022 Surgeon: Christos Denny MD; Location: [facility] ([facility]) OR LOCATION ESOPHAGOGASTRODUODENOSCOPY N/A 11/19/2021 Surgeon: Abiodun Shah MD; Location: [facility] ([facility]) OR LOCATION ESOPHAGOGASTRODUODENOSCOPY N/A 07/12/2023 Surgeon: Christos Denny MD; Location: [facility] ([facility]) OR LOCATION EXCISION HEPATOPANCREATIC AMPULLA ([facility]) N/A 04/08/2022 Surgeon: Erasmo Tovar MD; Location: [facility] OR LOCATION HIP HEMIARTHROPLASTY Right 01/28/2024 Surgeon: Radha Lozano MD; Location: [facility] OR LOCATION PHACOEMULSIFICATION OF CATARACT WITH INTRAOCULAR LENS IMPLANT Left 10/25/2023 Surgeon: Rajiv Rudolph MD; Location: [facility] OR LOCATION PHACOEMULSIFICATION OF CATARACT WITH INTRAOCULAR LENS IMPLANT Right 11/29/2023 Surgeon: Rajiv Rudolph MD; Location: [facility] OR LOCATION UPPER ULTRASOUND ([facility]) N/A 11/19/2021 Surgeon: Abiodun Shah MD; Location: [facility] ([facility]) OR LOCATION UPPER ULTRASOUND ([facility]) N/A 07/12/2023 Surgeon: Christos Denny MD; Location: [facility] ([facility]) OR LOCATION PAIN: Pain Location: R hip Pain rating before treatment: 10, After treatment: 10 Pain Management: Nursing Notified, Pain Meds given, Use of assistive device aides in pain reduction during mobility, and Repositioning Provided OCCUPATIONAL ROLES/HOME ENVIRONMENT: Home environment: Lives with spouse, 23/01 supervision/assistance is not available (pt's spouse currently battling cancer and receiving treatment, pt's daughter lives in [place]), and elevated home with 25 steps. Pt has been in IPR since last hospital admit (d/c 02/02/24) Bathroom access: Yes Bathroom setup: Shower Occupation(s): Retired Function prior to admission: Prior to initial injury, Household ambulation, Community ambulation, Independent with BADLs, and Independent with IADLs Suspected ischemic or hemorraghic stroke patient: No Equipment prior to admission: hip kit, 4 wheeled walker, Bedside commode, Straight Cane PERFORMANCE SKILLS/FACTORS: UE Muscle Tone: bilateral WNL UE ROM: bilateral AROM WFL UE Strength: HAWK UE 4/5 Hand dominance: right Dexterity/Coordination: bilateral Intact Endurance - Sitting: Fair+ Standing: Fair - Sitting Balance - Static: Good Dynamic: Fair+ Standing: Balance - Static Fair+ Dynamic: Fair Dizziness: No Skin Integrity: dressings intact Sensation: Patient denies numbness and tingling. Oral Motor: WFL Communication: Able to verbalize needs Yes Other: N/A Vision: WFL Yes Other: N/A Hearing: good; no issues reported COGNITION: Orientation: person, place, date/time, and situation Follows Commands: 1-step Yes Multi-step Yes Inconsistencies No Safety Awareness/Judgment: Good PROBLEM LIST: Decreased independence with ADL, Decreased functional ROM, and Decreased strength/endurance for functional activity REHAB POTENTIAL/PROGNOSIS: good PATIENT/FAMILY GOALS: patient wishes to walk longer distances TREATMENT/INTERVENTION PLAN: Functional motor treatment, Patient/Caregiver Education, Equipment recommendations, Daily living activities, and Therapeutic exercises GOAL(S): By discharge, patient will increase independence in daily living skills as follows: 1 Patient will perform 3 in 1 BSC transfer with independence. 2 Patient will perform UB dressing with independence. 3 Patient will perform LB dressing with independence, using adaptive equipment as needed. 4 Patient will complete 1 grooming tasks with independence while standing at the sink. 5 Patient will complete toileting hygiene, including clothing management, with independence. 6 Patient will increase endurance for functional activity as evidenced by ability to sustain 8 minutes of active participation in standing. 7 Patient/caregiver will verbalize/demonstrate understanding/proficiency in the following home programs: Fall prevention, 8 BUE General strengthening, and 9 hip precautions PATIENT-FAMILY TEACHING Patient provided with preferred teaching of verbal information on Adaptive equipment (Bedside commode), ADL training (simulated toilet transfer, bed mobility), Fall prevention, Relaxation/breathing techniques (pain management), Role of OT, Safety awareness (purpose of bed alarm and staff assist for transfers), WB restrictions, and Hip precautions. Shows readiness to learn. Verbal instruction teaching provided. Individual verbalizes understanding of teaching provided. Elyssa Maher OTR, OTD Total Timed Treatment Codes: 23 Min Total Treatment Time: 38 Min Patient Complexity Level High - An occupational therapy evaluation of high complexity was completed using the above tests and measures. The following information was obtained: An occupational profile and medical and therapy history, including review of medical and/or therapy records and extensive additional review of physical, cognitive, or psychosocial history related to current functional performance, Various standardized and non-standardized assessments were used to identify at least 5 or more performance deficits related to physical, cognitive, or psychosocial skills that result in activity limitations and/or participation restrictions, and Clinical decision-making is of high analytic complexity, which includes an analysis of the patient profile, analysis of data from comprehensive assessment(s), and consideration of multiple treatment options. Patient present with comorbidities that affect occupational performance. Significant modification of tasks or assistance (e.g., physical or verbal) with assessment(s) is necessary to enable patient to complete evaluation component. [facility] 2024-02-24 18:39:09 Associated Order(s): CONSULT ORTHOPAEDIC SURGERY ORTHOPAEDIC SURGERY CONSULT HISTORY & PHYSICAL 02/24/2024 Reason for consult: Right post-op site bleeding HISTORY OF PRESENT ILLNESS Jazz Camargo is a 79 year old female who previously sustained a femoral neck fracture after ground-level fall due to ischemic stroke, treated with R hip hemiarthroplasty on 01/27. Orthopaedics consulted today as patient presented with persistent intermittent bleeding from surgical site. States that she has been saturating her dressing x3-4 times since admission to rehab facility. She notes that she has been able to do some ambulation, albeit with difficulty, using a walker, taking up to 11 steps. Notes that she did not present to her 4-week post-operative meeting, is not sure why rehab facility did not take her. Per EMS, dressing changed just prior to their arrival to rehab facility and already saturated. Denies fever, chills, CP, SOB. Unsure of what blood thinners she is currently taking. Lives in [address] [place] [address] [place] [address] Works as RETIRED [employer] Past Medical History: Diagnosis Date Collagenous colitis HTN (hypertension) Past Surgical History: Procedure Laterality Date APPENDECTOMY ENDOSCOPIC RETROGRADE CHOLANGIOPANCRETOGRAPHY N/A 02/21/2022 Surgeon: Christos Denny MD; Location: [facility] ([facility]) OR LOCATION ESOPHAGOGASTRODUODENOSCOPY N/A 11/19/2021 Surgeon: Abiodun Shah MD; Location: [facility] ([facility]) OR LOCATION ESOPHAGOGASTRODUODENOSCOPY N/A 07/12/2023 Surgeon: Christos Denny MD; Location: [facility] ([facility]) OR LOCATION EXCISION HEPATOPANCREATIC AMPULLA ([facility]) N/A 04/08/2022 Surgeon: Erasmo Tovar MD; Location: [facility] LOCATION HIP HEMIARTHROPLASTY Right 01/28/2024 Surgeon: Radha Lozano MD; Location: [facility] OR LOCATION PHACOEMULSIFICATION OF CATARACT WITH INTRAOCULAR LENS IMPLANT Left 10/25/2023 Surgeon: Rajiv Rudolph MD; Location: [facility] OR LOCATION PHACOEMULSIFICATION OF CATARACT WITH INTRAOCULAR LENS IMPLANT Right 11/29/2023 Surgeon: Rajiv Rudolph MD; Location: [facility] OR LOCATION UPPER ULTRASOUND ([facility]) N/A 11/19/2021 Surgeon: Abiodun Shah MD; Location: [facility] ([facility]) OR LOCATION UPPER ULTRASOUND ([facility]) N/A 07/12/2023 Surgeon: Christos Denny MD; Location: [facility] ([facility]) OR LOCATION Family History Problem Relation Age of Onset Heart Mother Coronary Heart Disease Father CABG in mid 70s Coronary Heart Disease Brother PCI Other - see comments Brother Rectal Cancer Stomach Cancer Brother MEDICATIONS Current Facility-Administered Medications Medication Dose Route Frequency Last Rate Last Admin NaCl 0.9% (NS) bolus infusion 1,000 mL 1,000 mL IV Infusion ONCE Current Outpatient Medications Medication Sig Dispense Refill apixaban 5 mg tablet Take 1 tablet by mouth in the morning and 1 tablet in the evening. Do all this for 90 days. Indications: atrial fibrillation 60 tablet 2 vit C/E/zinc ox/sonia/lut/zeax (ICAPS AREDS2 ORAL) Take by mouth. BUDESONIDE ORAL Take 3 mg by mouth in the morning. Pt takes 2 in the morning and 1 at night. VITAMIN A ORAL Take 25,000 Units by mouth in the morning. zinc sulfate (ZINC-220 ORAL) Take 1 tablet by mouth in the morning. sonnye-ezpsirwu-bpxyoxo 12,000-38,000 -60,000 unit capsule Take 2 capsules by mouth in the morning and 2 capsules at noon and 2 capsules in the evening. Take with meals. 250 capsule 3 amLODIPine 5 mg tablet TAKE 1 TABLET BY MOUTH TWO TIMES A DAY NEEDED FOR SBP>140 cholestyramine 4 gram packet MIX AND DRINK 2 PACKETS BY MOUTH TWICE A DAY (MONTH SUPPLY) hyoscyamine sulfate 0.125 mg sublingual tablet TAKE 1-2 TABLETS UNDER THE TONGUE EVERY 4-6 HOURS NEEDED sucralfate 1 gram tablet TAKE 1 TABLET BY MOUTH BEFORE MEALS AND AT BEDTIME acetaminophen with codeine (TYLENOL-CODEINE #3 ORAL) Take by mouth. atorvastatin 20 mg tablet Take 1 tablet by mouth at bedtime. losartan 25 mg tablet Take 1 tablet by mouth in the morning. methscopolamine 5 mg tablet Take 1 tablet by mouth at bedtime. ondansetron (ZOFRAN) 4 mg tablet Take 1 tablet by mouth every 8 (eight) hours as needed. budesonide 3 mg 24 hr capsule Take 3 capsules by mouth every morning. calcium/magnesium/zinc (RECURUK-LMIAZPZEXU-DYBE) 333-133-5 mg Tab Take 1 tablet by mouth every evening. carvediloL 25 mg tablet Take 1 tablet by mouth in the morning and 1 tablet in the evening. Take with meals. Cholecalciferol, Vitamin D3, 125 mcg (5,000 unit) tablet Take 1 tablet by mouth in the morning. cyanocobalamin, vitamin B-12, (VITAMIN B-12) 5,000 mcg/mL Drop Place 5,000 mcg under the tongue in the morning. hydrALAZINE 50 mg tablet Take 1 tablet by mouth in the morning and 1 tablet in the evening. Levothyroxine 112 mcg capsule Take 125 mcg by mouth. mesalamine 1.2 gram EC tablet Take 1 tablet by mouth 4 (four) times daily. omeprazole 20 mg capsule Take 2 capsules by mouth in the morning. ALLERGIES Allergies Allergen Reactions Morphine Other - See comments Feel "Jittery and displaced" SOCIAL Social History Occupational History Occupation: Retired Tobacco Use Smoking status: Every Day Current packs/day: 0.50 Average packs/day: 0.5 packs/day for 60.0 years (30.0 ttl pk-yrs) Types: Cigarettes Smokeless tobacco: Never Substance and Sexual Activity Alcohol use: Not on file Drug use: Not on file Sexual activity: Not on file REVIEW OF SYSTEMS See HPI for pertinent PHYSICAL EXAMINATION CONSTITUTIONAL: BP 103/62 | Pulse 72 | Temp 36.3 ?C (97.4 ?F) (Oral) | Resp 18 | Ht 1.651 m (5' 5") | Wt 47.6 kg (105 lb) | SpO2 98% | BMI 17.47 kg/m? Constitutional: NAD Right lower extremity - Surgical incision is healing well without surrounding erythema, fluctuance. No purulent drainage. Jacky are still in place. There is a small granulomatous-appear area that is persistently oozing blood approx 3mm diameter in central aspect of otherwise well healed incision - Mild TTP - TA/GS/EHL/FHL intact - Sensation grossly intact to light touch - Palpable dorsalis pedis pulse IMAGING XR HIPS 2 VW RIGHT Result Date: 02/24/2024 Right hip hemiarthroplasty change with expected postoperative changes. Osteopenia. I, Jose E Turner MD., have reviewed this study and agree with the above report. XR FEMUR 2 VW RIGHT Result Date: 02/24/2024 Right hip hemiarthroplasty change with expected postoperative changes. Osteopenia. I, Jose E Turner MD., have reviewed this study and agree with the above report. Radiographs personally reviewed and interpreted by myself and faculty. Agree with radiology read, no apparent hardware failure or acute osseous abnormalities. ASSESSMENT Jazz Camargo is a 79 year old female s/p right hip hemiarthroplasty on 01/28/[address] Lozano who presents with reported persistent intermittent bleeding from surgical site. Small 3mm area of bleeding was able to be dressed And taped and stopped temporarily but restarted this afternoon with approx 15 to 20cc of bloody drainage on bandage which appears to arterial but not pulsatile. PLAN/RECOMMENDATIONS - Silver nitrate and direct pressure resolved oozing initially. Then Dressed with steri-strips, 4x4, and paper tape. Recommend repeat direct pressure and application of dressing with pressure (Wrapped Kerlix or SILVIO bandage) - At this time does not appear to be a large hematoma. Concern is for small arterial bleeder - WBAT RLE - PT/OT while in hospital - Hold Eliquis, bilateral SCD for DVT prophylaxis - - Independently reviewed current and previous imaging for comparison, if applicable, as well as relevant lab results. I discussed my findings and educated patient on the condition present. All questions answered to patient's satisfaction. -We discussed dddx and imaging studies and tx options etc. -I recommend proceeding with CT-angiogram to try and locate source of bleeding or at least r/o arterial bleed. Consider Vasc or IR embolization if positive vs formal I and D, exploration of incision/sinus tract +/- hematoma evacuation if clinically noted. -NPO p/ mn tonight -Will post for surgery for tomorrow for right hip I and D, exploration/ possible hematoma evacuation pending Ct angio this evening. -Daughter present t/o entire discussion. Risks and benefits of operative vs. Non operative treatment was discussed with the patient. All questions answered including the likelihood of the patient achieving the desired goals. PARQ held. Risks of surgery include but are not limited to bleeding,infection, damage to nerve, muscle, artery, tendon, pain, stiffness, scarring, functional or cosmetic deformity, need for furthery surgery, persistent pain despite appropriate surgical intervention and recurrence of symptoms in the future. No guarantees were expressed or implied other than due diligence... Solitario Green MD Orthopaedic Surgery Resident PGY-1 February 24, 2024 6:39 PM T [facility] 2024-01-31 14:05:00 Associated Order(s): CONSULT PHYSICAL THERAPY WOUND CARE Images from the original note were not included. Pt agreeable to PT for wound care. Patient met semi reclined in bed. Recommended Dressings Application/Instructions: Right medial lower leg: -Cleanse wound using Vashe soaked gauze and gently pat dry -Apply barrier cream to immediate wound edges -Apply cavilon skin barrier to periwound -Apply Medihoney to Exufiber Ag and apply honey-side down to wound bed Right anterior lower leg: -Cleanse wound using Vashe soaked gauze and gently pat dry -Apply 2-3 layers of Xeroform to wound -Cover whole R lower leg with kerlix and SILVIO wrap Supplies needed: Mepilex border Exufiber Ag Zinc oxide barrier cream Medihoney Cavilon skin barrier Xeroform Kerlix SILVIO PTWC to perform wound care at least 2x/week and nursing to perform on days when PTWC not available. PHYSICAL THERAPY WOUND CARE EVALUATION Consult received, chart reviewed and evaluation complete this date. Patient referred to PT for evaluation and treatment of: Integument compromise. Patient is a 79 year old female admitted for Cerebrovascular accident (CVA), unspecified mechanism [I63.9]. PT Recommendations: Continued skilled PT for wound care for wound cleaning to aide in removal of bacterial bioburden, selective, non excisional debridement of necrotic tissue to wound, and monitoring healing progression of wound(s) and updated dressing recommendations if indicated. Wound Description: patient presents with multiple wounds located on R lower leg. Location Size (cm) length=longest Drainage amount and type Necrotic tissue Granulation tissue Odor Periwound Photo Right medial lower leg 4 x 4 minimal, thin, and purulent 50% Soft yellow slough 50% Kaser or dull dusky red No normal for ethnic group Right anterior lower leg 1 x 1 & linear skin tear with 3x jack[address] in place minimal and bloody NA NA No normal for ethnic group TOTAL: 17cm2 Treatment Provided: wound cleaning performed via: Vashe soaked gauze ~ 5 minutes, selective, non excisional debridement of non viable tissues on medial R leg performed using forceps and scissors, and dressings applied as follows: as instructed . Aseptic technique was performed and unused materials disposed of in compliance with hospital standards. No materials or instruments left in the bed. After session, patient semi reclined in bed. Call button provided. PLAN OF CARE: At least 2 times per week for wound care for wound cleaning to aide in removal of bacterial bioburden, selective, non excisional debridement of necrotic tissue to medial R leg wound, and monitoring healing progression of wound(s) and updated dressing recommendations if indicated. See below for complete details. Admit Date: 01/27/2024 Hospital Diagnosis:Cerebrovascular accident (CVA), unspecified mechanism [I63.9] PT Diagnosis: Integument compromise Allergy precautions morphine Weight Bearing Precaution: NA General Precautions: PPE used:Gloves, General,IV intact Bracing/Cast present or required:N/A PMH: Past Medical History: Diagnosis Date Collagenous colitis HTN (hypertension) PSH: Past Surgical History: Procedure Laterality Date APPENDECTOMY ENDOSCOPIC RETROGRADE CHOLANGIOPANCRETOGRAPHY N/A 02/21/2022 Surgeon: Christos Denny MD; Location: [facility]) OR LOCATION ESOPHAGOGASTRODUODENOSCOPY N/A 11/19/2021 Surgeon: Abiodun Shah MD; Location: [facility] OR LOCATION ESOPHAGOGASTRODUODENOSCOPY N/A 07/12/2023 Surgeon: Christos Denny MD; Location: [facility]) OR LOCATION EXCISION HEPATOPANCREATIC AMPULLA ([facility]) N/A 04/08/2022 Surgeon: Erasmo Tovar MD; Location: [facility] LOC[facility] HIP HEMIARTHROPLASTY Right 01/28/2024 Surgeon: Radha Lozano MD; Location: [facility] OR LOCATION PHACOEMULSIFICATION OF CATARACT WITH INTRAOCULAR LENS IMPLANT Left 10/25/2023 Surgeon: Rajiv Rudolph MD; Location: [facility] LOCATION PHACOEMULSIFICATION OF CATARACT WITH INTRAOCULAR LENS IMPLANT Right 11/29/2023 Surgeon: Rajiv Rudolph MD; Location: [facility] OR LOCATION UPPER ULTRASOUND ([facility]) N/A 11/19/2021 Surgeon: Abiodun Shah MD; Location: [facility]) OR LOCATION UPPER ULTRASOUND ([facility]) N/A 07/12/2023 Surgeon: Christos Denny MD; Location: [facility] ([facility]) OR LOCATION Nutritional status: HGB Date Value Ref Range Status 01/31/2024 9.0 (L) 11.6 - 15.0 g/dL Final ALBUMIN Date Value Ref Range Status 01/31/2024 2.6 (L) 3.5 - 5.0 g/dL Final HGB A1C Date Value Ref Range Status 01/27/2024 5.0 4.0 - 5.7 % Final Subjective: Family reporting patients skin is very fragile and tears easily Patient/Family Goals: heal wound Patient/Family verbalizes understanding of condition: Yes PAIN: denies pain before and after session COMMUNICATION Primary Language: Nam[place] Able to Verbalize needs: Yes Vision:good; no issues reported Hearing:good; no issues reported ORIENTATION/COGNITION: Follows Commands: Yes NEUROLOGICAL Light Touch: within functional limits bilateral LE PROBLEM LIST: Integument compromise ASSESSMENT: Patient is a 79 year old female evaluated secondary to the integument compromise. Patient would benefit from continued PT for wound care to address the above listed problems and to maximize healing. Healing Potential: good Treatment Plan: Wound cleaning and Selective/non-excisional debridement of necrotic tissue The following goals are to maximize wound healing and foster normal integumentary status to allow patient to participate in normal daily activities. GOALS: upon discharge: 1. Promote granulation tissue to 100% of wound bed. 2. Control bioburden and infection. 3. Control drainage of wound via use of dressings to prevent maceration and infection. PATIENT EDUCATION: Patient, , and daughter provided with preferred teaching of verbal information on role of PT in wound care, plan of care, and wound care. Shows readiness to learn. Verbal instruction teaching provided. Individual is able to read and verbalizes understanding of teaching provided. Liv Helton PT, DPT Total Treatment Time in Minutes: 25 Min A physical therapy evaluation of high complexity was completed based on meeting at the criteria below: A history of present problem with at least 3 or more personal factors (includes environmental factors) and/or comorbidities that impact the plan of care An examination of body systems using standardized tests and measures addressing a total of at least 4 or more elements from any of the following: body structures and functions, activity limitations, and/or participation limitations A clinical presentation with unstable and unpredictable characteristics [facility] 2024-01-30 16:00:00 Associated Order(s): CONSULT CARDIOLOGY [facility] GENERAL CARDIOLOGY CONSULT NOTE Requesting Physician: Kale Simmons Reason for Consultation/Chief Compliant: evaluation of cardioembolic source of CVA Date of Service: 01/30/2024 History of Present Illness: 79 y/o female with PMH remarkable for HTN, hypothyroidism, duodenal/ampulla TVA s/p ampullectomy (2021) who presented with aphasia and right-sided weakness with L M1 MCA occlusion s/p recanalization for whom cardiology was consulted for possible cardioembolic source of stroke. Of note, the patient also fell prior to presentation and was found to have a femoral neck fracture s/p R hip hemiarthroplasty on 01/28/24. This AM, the patient is altered and unable to discuss her history. Per daughter, patient had been getting weaker these past few months and had been feeling more fatigued. Otherwise, she denied chest pain, palpitations. notes the patient does not have any cardiac history including atrial fibrillation/irregular rhythms or stents in the past. Of note, patient saw Dr Degroot in [place] in 03/2022 for preoperative cardiac assessment prior to ampullectomy, during which a nuclear stress was done and demonstrated no ischemia. Initial Labs: Recent Labs 01/27/24 0037 01/27/24 0103 01/28/24 0433 01/30/24 0245 01/30/24 0505 01/30/24 1244 TROPNI 0.014 -- -- -- -- -- CREAT 0.64 -- < > 0.87 -- -- PTINR 0.9 -- -- -- -- -- NTBNP -- 3,160* -- -- -- -- HGB 10.3* -- < > 5.1* < > 8.9* PLT 294 -- < > 172 < > 180 < > = values in this interval not displayed. EKG: sinus bradycardia 01/26 TELEMETRY: normal sinus rhythm with occasional episodes of sinus tachycardia CHEST XRAY 01/28: unremarkable TTE 01/27/24: Left Ventricle Left ventricle size is normal. Mildly increased wall thickness. Mild global hypokinesis present. Mildly reduced systolic function with a visually estimated EF of 40 - 45%. There is grade 1 diastolic dysfunction. GLS is reduced at -10% Right Ventricle Right ventricle size is normal. Normal systolic function. RVFWLS is -27% Left Atrium Left atrium is severely dilated. Left atrium volume index is 69.7 mL/m2. LA Strain is 12% Small ammount of bubbles crossing within 5 beats suggestive of small cardiac shunt. Right Atrium Right atrium size is normal. IVC/SVC IVC was not well visualized. Mitral Valve Severe posterior mitral annular calcification. Mild transvalvular regurgitation. No stenosis. Tricuspid Valve Tricuspid valve structure is normal. Trace transvalvular regurgitation. Insufficient tricuspid regurgitation jet to estimate RVSP . No stenosis. Aortic Valve Aortic valve opens well. Trace transvalvular regurgitation. No hemodynamically significant . Pulmonic Valve Valve structure is normal. Trace transvalvular regurgitation. No stenosis. Ascending Aorta Mildly enlarged annulus, measures 3.5 cm and index 2.1 cm/m2 Pericardium Small pericardial effusion present. Review of Systems: REVIEW OF SYSTEMS: General: (-) fever, (-) chills, (+) weight change, (-) dizziness, (+) fatigue Skin: (-) rash, (-) lesion HEENT: (-) headache, (-) change in hearing, (-) change in vision, (-) nasal discharge, (-) sore throat Neck: (-) pain, (-) difficulty swallowing, (-) mass Heme: (-) bleeding disorder Resp: (-) cough, (-) shortness of breath, (-) dyspnea on exertion, (-) orthopnea, (-) paroxysmal nocturnal dyspnea Cardio: (-) chest pain, (-) palpitations, (-) syncope GI: (-) abdominal distention, (-) nausea, (-) vomiting, (-) diarrhea, (-) constipation, (-) melena, (-) hematochezia, (-) hematemesis : (-) dysuria, (-) hematuria Endo: (-) heat intolerance, (-) cold intolerance, (-) polyuria, (-) polydipsia Neuro: (-) numbness, (-) tingling, (-) weakness Back: (-) pain, (-)spasms MS: (-) muscle pain, (-) joint pain Psych: negative Past Medical History: Past Medical History: Diagnosis Date Collagenous colitis HTN (hypertension) Past Surgical History: Past Surgical History: Procedure Laterality Date APPENDECTOMY ENDOSCOPIC RETROGRADE CHOLANGIOPANCRETOGRAPHY N/A 02/21/2022 Surgeon: Christos Denny MD; Location: [facility] ([facility]) OR LOCATION ESOPHAGOGASTRODUODENOSCOPY N/A 11/19/2021 Surgeon: Abiodun Shah MD; Location: [facility] ([facility]) OR LOCATION ESOPHAGOGASTRODUODENOSCOPY N/A 07/12/2023 Surgeon: Christos Denny MD; Location: [facility] ([facility]) OR LOCATION EXCISION HEPATOPANCREATIC AMPULLA ([facility]) N/A 04/08/2022 Surgeon: Erasmo Tovar MD; Location: [facility] OR [facility] HIP HEMIARTHROPLASTY Right 01/28/2024 Surgeon: Radha Lozano MD; Location: [facility] OR LOCATION PHACOEMULSIFICATION OF CATARACT WITH INTRAOCULAR LENS IMPLANT Left 10/25/2023 Surgeon: Rajiv Rudolph MD; Location: [facility] OR LOCATION PHACOEMULSIFICATION OF CATARACT WITH INTRAOCULAR LENS IMPLANT Right 11/29/2023 Surgeon: Rajiv Rudolph MD; Location: [facility] OR LOCATION UPPER ULTRASOUND ([facility]) N/A 11/19/2021 Surgeon: Abiodun Shah MD; Location: [facility] ([facility]) OR LOCATION UPPER ULTRASOUND ([facility]) N/A 07/12/2023 Surgeon: Christos Denny MD; Location: [facility]COPY ([facility]) OR LOCATION Family History: Family History Problem Relation Age of Onset Heart Mother Coronary Heart Disease Father CABG in mid 70s Coronary Heart Disease Brother PCI Other - see comments Brother Rectal Cancer Stomach Cancer Brother Social History: Pt reports that she has been smoking cigarettes. She has a 30 pack-year smoking history. She has never used smokeless tobacco. Medications: No current facility-administered medications on file prior to encounter. Current Outpatient Medications on File Prior to Encounter Medication Sig Dispense Refill vit C/E/zinc ox/sonia/lut/zeax (ICAPS AREDS2 ORAL) Take by mouth. BUDESONIDE ORAL Take 3 mg by mouth in the morning. Pt takes 2 in the morning and 1 at night. VITAMIN A ORAL Take 25,000 Units by mouth in the morning. zinc sulfate (ZINC-220 ORAL) Take 1 tablet by mouth in the morning. ljxdvs-bxkwjksn-xjuykpp 12,000-38,000 -60,000 unit capsule Take 2 capsules by mouth in the morning and 2 capsules at noon and 2 capsules in the evening. Take with meals. 250 capsule 3 amLODIPine 5 mg tablet TAKE 1 TABLET BY MOUTH TWO TIMES A DAY NEEDED FOR SBP>140 cholestyramine 4 gram packet MIX AND DRINK 2 PACKETS BY MOUTH TWICE A DAY (MONTH SUPPLY) hyoscyamine sulfate 0.125 mg sublingual tablet TAKE 1-2 TABLETS UNDER THE TONGUE EVERY 4-6 HOURS NEEDED levoFLOXacin 750 mg tablet Take 1 tablet by mouth every morning. sucralfate 1 gram tablet TAKE 1 TABLET BY MOUTH BEFORE MEALS AND AT BEDTIME vancomycin 250 mg capsule PLEASE SEE ATTACHED FOR DETAILED DIRECTIONS acetaminophen with codeine (TYLENOL-CODEINE #3 ORAL) Take by mouth. atorvastatin 20 mg tablet Take 1 tablet by mouth at bedtime. losartan 25 mg tablet Take 1 tablet by mouth in the morning. methscopolamine 5 mg tablet Take 1 tablet by mouth at bedtime. ondansetron (ZOFRAN) 4 mg tablet Take 1 tablet by mouth every 8 (eight) hours as needed. ALPRAZolam (XANAX) 0.25 mg tablet Take 0.25 mg by mouth once now. aspirin 81 mg chewable tablet Take 1 tablet by mouth in the morning. budesonide 3 mg 24 hr capsule Take 3 capsules by mouth every morning. calcium/magnesium/zinc (RWBYZBE-CZRSDYWZWH-BCEF) 333-133-5 mg Tab Take 1 tablet by mouth every evening. carvediloL 25 mg tablet Take 1 tablet by mouth in the morning and 1 tablet in the evening. Take with meals. Cholecalciferol, Vitamin D3, 125 mcg (5,000 unit) tablet Take 1 tablet by mouth in the morning. cyanocobalamin, vitamin B-12, (VITAMIN B-12) 5,000 mcg/mL Drop Place 5,000 mcg under the tongue in the morning. hydrALAZINE 50 mg tablet Take 1 tablet by mouth in the morning and 1 tablet in the evening. Levothyroxine 112 mcg capsule Take 125 mcg by mouth. mesalamine 1.2 gram EC tablet Take 1 tablet by mouth 4 (four) times daily. omeprazole 20 mg capsule Take 2 capsules by mouth in the morning. Hospital Medications: Current Facility-Administered Medications Medication Dose Route Frequency Last Rate Last Admin haloperidol lactate (HALDOL) injection 0.5 mg 0.5 mg Slow IV Push PRN ipratropium-albuteroL (DUONEB) 0.5 mg-3 mg(2.5 mg base)/3 mL nebulizer solution 3 mL 3 mL Inhalation QIDPRN QUEtiapine (SEROQUEL) tablet 25 mg 25 mg Oral Q12HA2 enoxaparin (LOVENOX) injection 30 mg 30 mg Subcutaneous Q12H ABX 30 mg at 01/30/24 1039 sennosides-docusate sodium (SENOKOT-S) 8.6-50 mg per tablet 1 tablet 1 tablet Oral DAILY labetaloL (NORMODYNE) 5 mg/mL injection 10 mg 10 mg Slow IV Push [id number] 10 mg at 01/30/24 0314 acetaminophen (TYLENOL) tablet 1,000 mg 1,000 mg Oral Q6HPRN 1,000 mg at 01/29/24 180 atorvastatin (LIPITOR) tablet 20 mg 20 mg Oral QHS 20 mg at 01/29/242013 HYDROcodone-acetaminophen (NORCO 5) 5-325 mg tablet 1 tablet 1 tablet Oral Q4HPRN 1 tablet at 01/30/24 0148 labetaloL (NORMODYNE) 5 mg/mL injection 10 mg 10 mg Slow IV Push PRN - SEE INSTRUCTIONS 10 mg at 01/27/24 0153 levothyroxine (SYNTHROID) tablet 125 mcg 125 mcg Oral QAM-0600 125 mcg at 01/30/24 0548 NaCl 0.9% (NS) injection 5 mL 5 mL Slow IV Push PRN - SEE INSTRUCTIONS niCARdipine (CARDENE I.V.) 40 mg in NaCL 200 mL (RTU) infusion 2.5-15 mg/hr IV Infusion TITRATE Stopped at 01/28/24 1243 Saline Bubble Study 6 mL Injection SEE-INSTRUCTIONS 6 mL at 01/27/24 1155 Sliding Scale Insulin - Lispro (HumaLOG) Subcutaneous TID MEALS+HS traMADoL (ULTRAM) tablet 50 mg 50 mg Oral Q6HPRN 50 mg at 01/29/24 1804 PHYSICAL EXAMINATION: Patient Vitals for the past 24 hrs: BP Temp Temp src Pulse Resp SpO2 01/30/24 1800 (!) 171/101 37.9 ?C (100.2 ?F) -- 86 18 98 % 01/30/24 1700 (!) 142/109 38.1 ?C (100.6 ?F) -- 102 18 96 % 01/30/24 1600 (!) 144/58 38.5 ?C (101.3 ?F) Bladder 77 11 100 % 01/30/24 1500 (!) 154/63 -- -- 81 9 100 % 01/30/24 1400 (!) 168/65 -- -- 79 11 100 % 01/30/24 1300 (!) 162/71 -- -- -- 11 -- 01/30/24 1200 (!) 180/78 37.2 ?C (99 ?F) Axillary 103 17 97 % 01/30/24 1100 (!) 145/90 -- -- 103 16 99 % 01/30/24 1025 (!) 174/78 37.1 ?C (98.8 ?F) -- 89 11 99 % 01/30/24 1007 (!) 167/119 37.2 ?C (99 ?F) Axillary 93 17 98 % 01/30/24 0930 (!) 180/120 -- -- 91 14 94 % 01/30/24 0900 122/74 -- -- 97 13 98 % 01/30/24 0830 (!) 179/71 37.2 ?C (99 ?F) -- 84 8 100 % 01/30/24 0800 (!) 144/119 37 ?C (98.6 ?F) Axillary 93 14 96 % 01/30/24 0700 (!) 156/100 36.9 ?C (98.4 ?F) -- 95 24 96 % 01/30/24 0620 (!) 169/79 36.8 ?C (98.2 ?F) Axillary 103 12 99 % 01/30/24 0619 (!) 179/86 -- -- 104 14 96 % 01/30/24 0615 (!) 182/83 -- -- 102 12 100 % 01/30/24 0605 (!) 174/81 -- -- 101 12 99 % 01/30/24 0603 (!) 174/81 -- -- 97 12 98 % 01/30/24 0600 (!) 174/81 36.7 ?C (98.1 ?F) Axillary 99 20 98 % 01/30/24 0545 (!) 147/113 -- -- 90 13 99 % 01/30/24 0530 (!) 151/127 -- -- 98 13 100 % 01/30/24 0500 (!) 143/70 37.7 ?C (99.9 ?F) -- -- 12 -- 01/30/24 0445 (!) 174/82 37.7 ?C (99.9 ?F) -- 103 17 92 % 01/30/24 0430 -- 37.6 ?C (99.7 ?F) -- 114 13 94 % 01/30/24 0400 (!) 128/97 37.6 ?C (99.7 ?F) -- 89 12 98 % 01/30/24 0338 (!) 153/66 37.5 ?C (99.5 ?F) -- 78 8 95 % 01/30/24 0330 (!) 148/49 37.5 ?C (99.5 ?F) -- 83 10 97 % 01/30/24 0315 108/81 37.5 ?C (99.5 ?F) -- 87 15 95 % 01/30/24 0307 -- 37.4 ?C (99.3 ?F) -- 98 18 98 % 01/30/24 0306 -- 37.4 ?C (99.3 ?F) -- 88 28 94 % 01/30/24 0300 (!) 142/63 37.4 ?C (99.3 ?F) -- 76 10 98 % 01/30/24 0245 -- 37.5 ?C (99.5 ?F) -- 81 8 97 % 01/30/24 0230 -- 37.5 ?C (99.5 ?F) -- 75 10 97 % 01/30/24 0215 -- 37.5 ?C (99.5 ?F) -- 81 15 96 % 01/30/24 0213 (!) 111/94 37.4 ?C (99.3 ?F) -- 81 15 96 % 01/30/24 0200 (!) 170/104 37.4 ?C (99.3 ?F) -- 100 12 92 % 01/30/24 0148 (!) 169/77 37.4 ?C (99.3 ?F) -- 97 13 95 % 01/30/24 0145 -- 37.4 ?C (99.3 ?F) -- 93 12 95 % 01/30/24 0130 -- 37.4 ?C (99.3 ?F) -- 93 15 98 % 01/30/24 0115 -- 37.4 ?C (99.3 ?F) -- 90 16 96 % 01/30/24 0100 (!) 146/72 37.4 ?C (99.3 ?F) -- 84 -- (!) 88 % 01/30/24 0045 -- 37.4 ?C (99.3 ?F) -- 79 (!) 7 99 % 01/30/24 0030 -- 37.4 ?C (99.3 ?F) -- 83 11 97 % 01/30/24 0015 -- 37.4 ?C (99.3 ?F) -- 82 18 97 % 01/30/24 0000 112/54 37.4 ?C (99.3 ?F) -- 93 20 100 % 01/29/24 2345 -- 37.4 ?C (99.3 ?F) -- 86 13 98 % 01/29/24 233 -- 37.4 ?C (99.3 ?F) -- 83 15 97 % 01/29/242314 -- 37.4 ?C (99.3 ?F) -- 82 12 100 % 01/29/242310 -- 37.4 ?C (99.3 ?F) -- 82 13 97 % 01/29/24 230 (!) 143/57 37.4 ?C (99.3 ?F) -- 85 14 97 % 01/29/242244 -- 37.5 ?C (99.5 ?F) -- 79 9 96 % 01/29/242229 -- 37.5 ?C (99.5 ?F) -- 73 9 97 % 01/29/242214 -- 37.5 ?C (99.5 ?F) -- 81 19 97 % 01/29/242199 (!) 141/58 37.5 ?C (99.5 ?F) -- 81 12 95 % 01/29/242144 -- 37.5 ?C (99.5 ?F) -- 75 11 99 % 01/29/242129 -- 37.5 ?C (99.5 ?F) -- 80 11 100 % 01/29/242114 -- 37.5 ?C (99.5 ?F) -- 77 10 100 % 01/29/24 2100 132/50 37.5 ?C (99.5 ?F) -- 76 13 100 % 01/29/242044 -- 37.6 ?C (99.7 ?F) -- 74 12 97 % 01/29/242029 -- 37.5 ?C (99.5 ?F) -- 77 27 100 % 01/29/242014 -- -- -- 79 14 100 % 01/29/241999 (!) 155/63 -- -- 76 9 100 % 01/29/241946 -- -- -- 75 11 100 % 01/29/241936 -- -- -- 79 21 91 % 01/29/24 1900 (!) 161/61 -- -- 81 19 96 % Intake/Output Summary (Last 24 hours) at 01/30/2024 1831 Last data filed at 01/30/2024 1800 Gross per 24 hour Intake 685 ml Output 3545 ml Net -2860 ml General: patient currently altered, unable to answer questions HEENT: normocephalic atraumatic Neck: supple, no JVD Lungs: clear to auscultation bilaterally Cardio: normal rate, regular rhythm, no murmurs Abdomen: soft; non-distended; Extremities: no clubbing, cyanosis, or edema over extremities Skin: no rashes , dry and warm ASSESSMENT New Onset HFrEF (EF 40-45% from 55-60% in 03/2022), 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 Pending ДМИТРИЙ for further evaluation once patient's mental status improves. Will start pt on GDMT and continue to monitor for arrhythmias outpatient with 30-day cardiac sonographer. Ischemic evaluation to be done outpatient as well once patient is stable. PLAN - start coreg 3.125 mg BID - obtain ДМИТРИЙ once mentation improves - recommend 30-day event monitor on discharge - outpatient ischemic evaluation with MIBI scan - anemia workup per primary Patient discussed with Dr Hinojosa who agrees with the assessment and plan. Subha Shaffer DO PGY-2, Internal Medicine Associated attestation - Hazel Hinojosa MD - 01/30/2024 7:47 PM CDT I reviewed patient's chart, vitals, lab work, current medications and other diagnostic studies. I saw and examined the patient and agree with the detailed note written by Dr Shaffer. I actively participated in the decision-making process. Please see the detailed progress note for additional details with the following additions/exceptions if any. Hazel Hinojosa MD, [facility] Division of Cardiovascular Medicine [facility] 2024-01-29 09:35:00 Associated Order(s): CONSULT ADULT OCCUPATIONAL THERAPY OT GENERAL EVALUATION Consult received via [employer], EMR reviewed and evaluation completed 01/29/24. Patient referred to occupational therapy for evaluation and treatment secondary to aphasia and right sided weakness, leading to a fall resulting in R neck femur fracture. The patient is now s/p DSA (01/27/2024) and R hip hemiarthroplasty (01/28/2024). Patient agreeable to participate in occupational therapy. The patient was seen in conjunction with Joon Jones PT due to concerns for poor endurance and decreased tolerance for two separate therapy sessions. Billing for OT portion only. Discharge Recommendations: The patient would benefit from additional therapy post discharge from hospital. Therapy Needs and Potential: - Patient would benefit from continued skilled occupational therapy services to address: Decline in basic activities of daily living, Decline in instrumental activities of daily living, Decline in cognition, Decreased strength, and Decreased endurance - Patient demonstrates good potential to improve and meet therapy goals with further skilled occupational therapy services. - Patient appears motivated to improve their B/IADLs and return to their previous level of function. - Patient demonstrates ability to tolerate at least 30-60 minutes of active participation in occupational therapy. - Patient able to follow commands: 1-step Yes, Multi-step No, Inconsistencies Yes Challenges to Home Transition: - Requires physical assistance for BADLS - Requires physical assistance for IADLS - Requires supervision or verbal cues for BADLS - Requires supervision or verbal cues for IADLS - Limited caregiver availability - Per family, patient's spouse is beginning chemo/radiation treatments and will not be available for 23/01 support. Additionally, patient's family does not live nearby. - Decreased safety awareness/judgement - Increased risk of falls - Environmental barriers - elevated single story home on stilts w/ no lift Equipment Recommendations: At this time, OT recommending hospital bed and mechanical lift but will continue to update as the patient progresses with OT services. PLAN OF CARE: At least 3x/week Precautions: Weight bearing status: WBAT R LE General: PPE Utilized: Gloves and Surgical mask, Fall, O2 per NC, Telemetry/ICU Lines, Multiple IV, Braga, Posterior Hip Precautions Bracing: Knee immobilizer to R LE, Hip Abduction Wedge when Knee Immobilizer not in place Current Occupational Performance and/or Treatment: AM-PAC 6 Clicks (Raw Score 0=Dependent, 24=Independent; Low function Raw Score 0= Dependent, 32=Independent): Raw Score - Daily Activity: 8 T-Scale Score - Daily Activity: 22.87 Grooming: Maximum Assistance, hand over hand facilitation required due to patient with limited command following and task initiation/follow through. Patient able to bring hand to face to wipe face w/ rag using active assisted motion. UB Dressing: Maximum Assistance, to don gown around back LB Dressing: Total Assistance, to don socks while seated EOB; patient with inconsistent command following to move feet appropriately to assist with task; ordered hip kit for patient which was delivered to her room while OT was present on unit. Toilet Transfer: Maximum Assistance, simulated using transfer from EOB to bedside chair w/ max assist x 2. Toileting Hygiene: Total Assistance, braga catheter in place at this time Functional Mobility: Patient found supine w/ HOB elevated. Supine -> sitting EOB with maximum assistance. Scooting towards EOB with max assist. Sitting EOB -> standing w/ max assist x 2. Patient completed transfer from EOB to bedside chair with max assist x 2. Cues given throughout for body mechanics, safety awareness, deep breathing, and hip precautions. Patient/caregiver educated on: Adaptive equipment , ADL training, AROM, Deep breathing, Relaxation/breathing techniques, Role of OT, Safety awareness, WB restrictions, Hip precautions, and Knee Immobilizer Management Patient left reclining in bedside chair with call sosa in reach. Spouse present, Vital signs stable , and HAWK LE elevated. Please, see full evaluation below for more detail. OT EVALUATION: 79 year old female Admit date: 01/27/2024 Date of onset: 01/27/2024 Admit Diagnosis: Cerebrovascular accident (CVA), unspecified mechanism [I63.9] OT Diagnosis: Impaired BADL independence, Impaired IADL independence, Weakness, Decreased endurance, Impaired self-care mobility, Limited joint ROM, and Impaired cognition PMH: Past Medical History: Diagnosis Date Collagenous colitis HTN (hypertension) PSH: Past Surgical History: Procedure Laterality Date APPENDECTOMY ENDOSCOPIC RETROGRADE CHOLANGIOPANCRETOGRAPHY N/A 02/21/2022 Surgeon: Christos Denny MD; Location: [facility] ([facility]) OR LOCATION ESOPHAGOGASTRODUODENOSCOPY N/A 11/19/2021 Surgeon: Abiodun Shah MD; Location: [facility] ([facility]) OR LOCATION ESOPHAGOGASTRODUODENOSCOPY N/A 07/12/2023 Surgeon: Christos Denny MD; Location: [facility] ([facility]) OR LOCATION EXCISION HEPATOPANCREATIC AMPULLA ([facility]) N/A 04/08/2022 Surgeon: Erasmo Tovar MD; Location: [facility] OR LOCATION HIP HEMIARTHROPLASTY Right 01/28/2024 Surgeon: Radha Lozano MD; Location: [facility] OR LOCATION PHACOEMULSIFICATION OF CATARACT WITH INTRAOCULAR LENS IMPLANT Left 10/25/2023 Surgeon: Rajiv Rudolph MD; Location: [facility] LOCATION PHACOEMULSIFICATION OF CATARACT WITH INTRAOCULAR LENS IMPLANT Right 11/29/2023 Surgeon: Rajiv Rudolph MD; Location: [facility] OR LOCATION UPPER ULTRASOUND ([facility]) N/A 11/19/2021 Surgeon: Abiodun Shah MD; Location: [facility]OSCOPY ([facility]) OR LOCATION UPPER ULTRASOUND ([facility]X) N/A 07/12/2023 Surgeon: Christos Denny MD; Location: [facility]OSCOPY ([facility]) OR LOCATION PAIN: Pain Location: abdomen Pain rating before treatment: does not rate, After treatment: does not rate Pain Management: Nursing Notified and Repositioning Provided OCCUPATIONAL ROLES/HOME ENVIRONMENT: Home environment: The patient lives with her spouse in an elevated single story home w/ 25 steps for access w/ handrail available. No lift in the home. Patient's spouse is not available for 23/01 support at this time secondary to beginning chemo/radiation treatments. Patient with no family or friends that live nearby per patient's daughter. Bathroom access: Yes Bathroom setup: Shower Occupation(s): Retired Function prior to admission: Household ambulation, Community ambulation, Independent with BADLs, and Independent with IADLs Suspected ischemic or hemorraghic stroke patient: Yes, Pre-Stroke Modified [place] Score: 0 - No symptoms Equipment prior to admission: 4 wheeled walker, Straight Cane PERFORMANCE SKILLS/FACTORS: UE Muscle Tone: bilateral WNL UE ROM: HAWK UE WFL through AAROM/PROM. UE Strength: Patient with inconsistent command following to complete formal MMT. Patient appears to have some weakness of the HAWK UE. Hand dominance: right Dexterity/Coordination: bilateral Intact Endurance - Sitting: Fair Standing: Poor+ Sitting Balance - Static: Fair Dynamic: Poor+ Standing: Balance - Static Poor Dynamic: Poor Dizziness: No Skin Integrity: Patient with dressing intact and ecchymosis to R LE. defer full skin assessment to nursing Sensation: Unable to assess Oral Motor: WFL Communication: Able to verbalize needs Yes Other: Patient continues to experience aphasia. Patient appears to have receptive and expressive aphasia, but would benefit from a formal speech therapy evaluation. Vision: WFL Yes Other: Patient's daughter reports history of cataracts in the patient. Hearing: good; no issues reported COGNITION: Orientation: person Follows Commands: 1-step Yes Multi-step No Inconsistencies Yes Safety Awareness/Judgment: Poor, Lacks insight to deficits, and Requires frequent cueing PROBLEM LIST: Decreased independence with B/IADL, Decreased functional ROM, Decreased strength/endurance for functional activity, Impaired safety awareness, and Impaired Cognition REHAB POTENTIAL/PROGNOSIS: fair PATIENT/FAMILY GOALS: The patient's family would like to see the patient get stronger and return to prior level of function. TREATMENT/INTERVENTION PLAN: Functional motor treatment, Patient/Caregiver Education, Equipment recommendations, Daily living activities, Therapeutic exercises, Neuromuscular Re-Education, and Cognitive retraining GOAL(S): By discharge, patient will increase independence in daily living skills as follows: 1 Patient will demonstrate good static sitting balance EOB x 5 minutes unsupported in preparation for EOB/OOB ADL activities. 2 Patient will perform 1 grooming task while seated EOB or in chair with supervision and less than 3 cues. 3 Patient will perform 3 in 1 BSC transfer with minimal assistance while following hip precautions. 4 Patient will perform UB dressing with minimal assistance. 5 Patient will perform LB dressing with minimal assistance using adaptive equipment as needed while following hip precautions. 6 Patient will increase endurance for functional activity as evidenced by ability to sustain 20 minutes of active participation. 7 Patient/caregiver will verbalize/demonstrate understanding/proficiency in the following home programs: Adaptive equipment, 8 Energy conservation, 9 Fall prevention, 10 General strengthening, 11 WB restrictions, and 12 Hip precautions PATIENT-FAMILY TEACHING Patient provided with preferred teaching of verbal information and demonstration on Adaptive equipment , ADL training, AROM, Deep breathing, Relaxation/breathing techniques, Role of OT, Safety awareness, WB restrictions, Hip precautions, and Knee Immobilizer Management . Barriers to learning include physical limitations and cognitive limitations. Verbal instruction and Demonstration teaching provided. Individual needs reinforcement of teaching. SHELLI Betancourt, OTD Pager #: [phone] Total Timed Treatment Codes: 15 Min Total Treatment Time: 31 Min Patient Complexity Level High - An occupational therapy evaluation of high complexity was completed using the above tests and measures. The following information was obtained: An occupational profile and medical and therapy history, including review of medical and/or therapy records and extensive additional review of physical, cognitive, or psychosocial history related to current functional performance, Various standardized and non-standardized assessments were used to identify at least 5 or more performance deficits related to physical, cognitive, or psychosocial skills that result in activity limitations and/or participation restrictions, and Clinical decision-making is of high analytic complexity, which includes an analysis of the patient profile, analysis of data from comprehensive assessment(s), and consideration of multiple treatment options. Patient present with comorbidities that affect occupational performance. Significant modification of tasks or assistance (e.g., physical or verbal) with assessment(s) is necessary to enable patient to complete evaluation component. [facility] 2024-01-29 09:35:00 Associated Order(s): CONSULT ADULT PHYSICAL THERAPY Patient agreeable to working with physical therapy. Patient met semi reclined in bed with vitals as follows HR:73 bpm, Spo2: 98% on room air, RR: 14bpm, BP: 158/55. Patient is seen in conjunction with Matilde Tavera OT secondary to patient with decreased endurance and activity tolerance. Recommend nursing staff utilize viv stedy with WBAT with posterior hip precautions to safely assist patient with mobility out of the bed or chair. PHYSICAL THERAPY EVALUATION Consult received, chart reviewed and evaluation complete this date. Patient is referred to PT for evaluation and treatment. Patient is a 79 year old female who presents to hospital for Cerebrovascular accident (CVA), unspecified mechanism [I63.9] Patient is seen s/p to aphasia and right sided weakness, leading to a fall resulting in R neck femur fracture . Patient is seen s/p DSA 01/27/24 and Rt jesus arthroplasty on 01/28/24 Discharge Recommendations: Therapy Needs and Potential: Patient would benefit from continued physical therapy services to address: decline in bed mobility decline in transfers decline in gait and/or balance decline in stair/step negotiation decreased strength decreased endurance decreased coordination decreased motor planning Patient demonstrates good potential to improve and meet therapy goals with further physical therapy services. Patient appears motivated to improve their functional mobility and return to their previous level of function. Patient demonstrates ability to tolerate atleast 30-60 minutes of physical therapy with active participation. Challenges to Home Transition: increased risk of falls decreased caregiver availability decreased safety awareness environmental barriers Equipment recommendations: wheelchair, hospital bed, and mechanical lift at this time and will update as patient progress with therapy Current Functional Status and/or Treatment: AM-PAC 6 Clicks (Raw Score 0=Dependent, 24=Independent; Low function Raw Score 0= Dependent, 32=Independent): Raw Score - Basic Mobility : 6 T-Scale Score - Basic Mobility : 19.59 Bed Mobility: Supine to sit : Maximum Assistance x 2 with head of the bed elevated. Sitting at the edge of bed: mod assist with verbal cues. Scooting in sitting: max assist with verbal cues for hand placement and technique Dizziness No Transfers: Sit to stand: Maximum Assistance x 2 using no device. Stand to sit: Maximum Assistance x 2 using no device with verbal cues for hand placement and technique Dizziness No Ambulation: Assisted patient with ambulation as follows: 3 steps to the chair with max assist x 2 with max verbal cues for technique and foot placement using no devic Dizziness No Therapeutic exercise: instructed patient in the following: ankle pumps 10x After session, patient up in chair. Call button provided. Vitals stable and RN notified of patient status PLAN OF CARE: While in the hospital, PT will follow patient at least 5 times per week,once or twice a day, per patient's tolerance and needs. See below for complete details. Admit Date: 01/27/2024 Hospital Diagnosis:Cerebrovascular accident (CVA), unspecified mechanism [I63.9] PT Diagnosis: Difficulty walking and Weakness Weight Bearing Precaution: WBAT RT LE General Precautions: PPE used:Gloves, lines: IV General, Fall, Posterior hip precautions,Braga catheter, oxygen: Nasal canula WBAT with posterior hip precautions. Pillow between legs when seated or supine. Knee immobilizer when sleeping or mobilizing with simple pillow between legs when in bed. May remove immobilizer when awake and when transferring and out of bed etc. Bracing/Cast present or required:Knee immobilizer PMH: Past Medical History: Diagnosis Date Collagenous colitis HTN (hypertension) PSH: Past Surgical History: Procedure Laterality Date APPENDECTOMY ENDOSCOPIC RETROGRADE CHOLANGIOPANCRETOGRAPHY N/A 02/21/2022 Surgeon: Christos Denny MD; Location: [facility]) OR LOCATION ESOPHAGOGASTRODUODENOSCOPY N/A 11/19/2021 Surgeon: Abiodun Shah MD; Location: [facility]) OR LOCATION ESOPHAGOGASTRODUODENOSCOPY N/A 07/12/2023 Surgeon: Christos Denny MD; Location: [facility] ([facility]) OR LOCATION EXCISION HEPATOPANCREATIC AMPULLA ([facility]) N/A 04/08/2022 Surgeon: Erasmo Tovar MD; Location: [facility] OR LOCATION HIP HEMIARTHROPLASTY Right 01/28/2024 Surgeon: Radha Lozano MD; Location: [facility] OR LOCATION PHACOEMULSIFICATION OF CATARACT WITH INTRAOCULAR LENS IMPLANT Left 10/25/2023 Surgeon: Rajiv Rudolph MD; Location: [facility] OR LOCATION PHACOEMULSIFICATION OF CATARACT WITH INTRAOCULAR LENS IMPLANT Right 11/29/2023 Surgeon: Rajiv Rudolph MD; Location: [facility] OR LOCATION UPPER ULTRASOUND (SHX) N/A 11/19/2021 Surgeon: Abiodun Shah MD; Location: [facility] ([facility]) OR LOCATION UPPER ULTRASOUND (SHX) N/A 07/12/2023 Surgeon: Christos Denny MD; Location: [facility] ([facility]) OR LOCATION Prior Living Situation: lives with their spouse in a single story house with 25 steps with bilateral hand rails Per daughter, patient spouse is starting his chemo / radiation and 23/01 support not available DME: Four wheeled walker with seat, SPC Prior level of Mobility: community ambulation Suspected ischemic or hemorraghic stroke: yes please see OT notes Subjective: per patient daughter , patient was independent with mobility with walker or cane Patient/Family Goals: to get better Patient/Family verbalizes understanding of condition: Yes PAIN: -Pain Description: constant -Pain Location: abdomen -Pain rating before treatment: does not rate, After treatment: does not rate -Pain Management: Nursing Notified COMMUNICATION Primary Language: Namibian Able to Verbalize needs: Yes however aphasic Vision:good; no issues reported Hearing:good; no issues reported ORIENTATION/COGNITION: Oriented to: person, place, date/time, and situation Awake: Yes Alert: Yes Dizzy: No Follows Commands: Yes 1-Step Yes Multi-Step Yes Inconsistent: No NEUROLOGICAL Light Touch: within functional limits bilateral LE Tone: normal BALANCE: Sitting: Static: Good Dynamic: Fair+ Standing: Static: poor Dynamic: Poor RANGE OF MOTION: within functional limits bilateral LE RT knee in knee immobilizer STRENGTH: 3+/5 (F+),left LE , RT LE: NT secondary to patient with pain and s/p surgery ENDURANCE: Fair, Nasal canula SKIN INTEGRITY: defer to nursing notes PROBLEM LIST: Decline in bed mobility, Decline in gait, Decline in transfers, Difficulty with stairs, Decreased strength, Decreased endurance, and Decreased balance ASSESSMENT: Patient is a 79 year old female seen secondary to the above listed diagnosis. Patient would benefit from continued PT to address the above listed deficits to maximize independence and safety with functional mobility. Rehabilitation Potential: fair Goals: The following goals are to maximize independence and safety with functional mobility to eventually return to prior living situation and prior functional status. Upon discharge, patient and/or family will demonstrate the followin. Supine-sit: Minimal Assistance 2. Sit to stand: Minimal Assistance using rolling Walker. Stand to sit: Minimal Assistance using rolling Walker. 3. Minimal Assistance with ambulation, Feet: 150 using least assistive device. Treatment Plan: Gait training, Gait training on stairs, Therapeutic exercise, Transfer training, Balance training, Bed mobility training, Equipment needs assessment, and Safety education, patient/caregiver education PATIENT EDUCATION: Patient provided with preferred teaching of verbal information on role of PT, plan of care. Shows readiness to learn. Verbal instruction teaching provided. Individual shows no evidence of learning. Total Time Tx Codes in Minutes: 10 min Total Treatment Time in Minutes: 31 min Joon Jones PT, DPT, CCS Board-Certified Clinical Specialist in Cardiovascular and Pulmonary Physical Therapy Critical [facility] hospital 2024-01-27 17:55:29 Associated Order(s): CONSULT FUNERAL HOME MAKEUP ARTIST-ADULT Reason for Consult - Please give recommendations and opinions on family primary decision maker and appropriate options for discharge destination. Will wait for PT/OT recs. Daughter is interested in patient going to inpt rehab after hip surgery. . Care Management Social Functional Assessment Patient Name: Jazz Camargo Age: [age] year old Sex: female Patient's Previous Admission Date at [facility]: 04/08/2022 Current diagnosis and co-morbidities: Cerebrovascular accident (CVA), unspecified mechanism [I63.9] Readmission Questions: Was patient discharged from any acute care hospital within the last 30 days: No Alcohol Use Screening (AUDIT-C) Q1: How often do you have a drink containing alcohol?: Never SCORE: 1 Brief Intervention/List of Resources Offered : No Actions taken: Discussed availability of resources Social Functional Assessment: Mental Status: Other Other mental status: CM completed assessment with daughter. Caregiver Limitations: No caregiver issues identified Name and phone number of primary caregiver/support system: LOGAN CAMARGO Spouse [phone] MPOA: No;Yes Name and relation to patient (e.g. Zahra Demarco, daughter): LOGAN CAMARGO Spouse [phone] Living Arrangement: Home Home/Caregiver address: [address] [place] [address] Sex: [place] [address] Baseline functional assessment-ADLS: Independent Current functional status same as prior: No On Service with Home Health or Provider Sevices: No Hemodialysis: No Does patient have a PCP: Yes Name of PCP: Kale Simmons Will the patient be able to obtain his/her medications: Yes Community resources utilized: None Funding Resources: Medicare A & B Anticipated Discharge Needs: Consult;Continue Medical Eval;Lab Values;OR;PT/OT/ST Mode of Transportation: Ambulance In the last 12 months, was there a time when you were not able to pay the mortgage or rent on time?: Yes In the last 12 months, how many places have you lived?: 1 In the last 12 months, was there a time when you did not have a steady place to sleep or slept in a [place] [facility] facility (including now)?: No In a typical week, how many times do you talk on the phone with family, friends, or neighbors?: Never Are you , , , , never , or living with a partner?: On average, how many days per week do you engage in moderate to strenuous exercise (like a brisk walk)?: 0 days On average, how many minutes do you engage in exercise at this level?: 0 min How hard is it for you to pay for the very basics like food, housing, medical care, and heating?: Not very hard Within the past 12 months, you worried that your food would run out before you got the money to buy more.: Sometimes true Within the past 12 months, the food you bought just didn't last and you didn't have money to get more.: Sometimes true SFA Complete: Social Functional Assessment complete: Yes Role of Care Management explained. Antony Razo BSN, CCM, RN Care Management [email or web address] [phone] [facility] 2024-01-27 13:06:46 Associated Order(s): CONSULT SPEECH Speech-Language Pathology Clinical Swallow Evaluation 01/27/2024 Jazz Camargo : 1945 Age/Sex: 79 year old female Time IN/OUT: 5913-7823 Referring Physician: Elijah Dillard MBBS Date of Referral: 01/27/24 Reason for Referral: stroke activation (dysphagia, speech-language/cognitive-linguis tic) Date of Admission/Onset: 01/27/24 SUBJECTIVE: Patient lying in bed with present and lunch tray bedside. Patient reports back pain and decreased appetite (RN notified). Patient agreeable to participate in evaluation, however minimal PO observed d/t patient lack of desire for PO. Patient family reports speech/language difficulties, especially regarding word finding. OBJECTIVE: is being seen for a clinical swallow evaluation. Jazz Camargo is a 79 year old right handed woman with PMHX of htn who presented on 01/27/2024 with sudden onset aphasia and right sided weakness accompanied with a fall (LSN 01/27/2024 01/26/2024 ). NIHSS initially 15. CT head unremarkable, CTA head and neck left M1 occlusion examination was concerning for neck of femur fracture. Which was confirmed on imaging. Due to presentation with trauma and hip fracture, a scott CT was obtained was to rule out any internal bleeding. After rodriguez, decision was to give TNK and verbal consent was obtained from the however significant improvement was noted so we had to hold the TNK to reassess the NIHSS which was 3 due to right leg weakness due to pain limitation, however, after prolonged discussion with the patient and the family they wanted to proceed with the TNK, BP was persistently elevated even after labetalol. However, IR called for the patient before TNK administration and the family agreed to go to the angiogram without TNK given. DSA ws done and showed fully recanalized LMCA, and distal left M4 occlusion so no thrombectomy was done. 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 Perfusion deficit involving the left MCA territory with infarct core volume of 2 mL, mismatch volume of 62 mL and mismatch ratio of 32 mL. The findings of this study have been discussed with and acknowledged by Dr. Lama over the phone on 01/27/2024 at 12:40 AM with readback. Preliminary Report Dictated by Resident: Silverio Jones MD., have reviewed this study and agree with the above report. CT ACUTE STROKE ANGIOGRAM NECK Result Date: 01/27/2024 Left MCA mid M1 thrombosis measuring 5 mm in length with distal reconstitution. Perfusion deficit involving the left MCA territory with infarct core volume of 2 mL, mismatch volume of 62 mL and mismatch ratio of 32 mL. The findings of this study have been discussed with and acknowledged by Dr. Lama over the phone on 01/27/2024 at 12:40 AM with readback. Preliminary Report Dictated by Resident: Silverio Jones MD., have reviewed this study and agree with the above report. CT STROKE PERFUSION W CONTRAST Result Date: 01/27/2024 Left MCA mid M1 thrombosis measuring 5 mm in length with distal reconstitution. Perfusion deficit involving the left MCA territory with infarct core volume of 2 mL, mismatch volume of 62 mL and mismatch ratio of 32 mL. The findings of this study have been discussed with and acknowledged by Dr. Lama over the phone on 01/27/2024 at 12:40 AM with readback. Preliminary Report Dictated by Resident: Silverio Jones MD., have reviewed this study and agree with the above report. CT ACUTE STROKE HEAD WO CONTRAST Result Date: 01/27/2024 Hyperdense left MCA, suspicious for left MCA M1 thrombosis. No acute intracranial hemorrhage, large vessel territory infarct or mass effect. The findings of this study have been discussed with and acknowledged by Dr. Lama over the phone on 01/27/2024 at 7:40 AM with readback. Preliminary Report Dictated by Resident: Tiffany Rondon I, Silverio Jerez MD., have reviewed this study and agree with the above report. XR HIPS 2 VW RIGHT Result Date: 01/27/2024 Displaced right femoral neck fracture. Preliminary Report Dictated by Resident: Tiffany Rondon I, Jose E Turner MD., have reviewed this study and agree with the above report. IR ANGIOGRAM CEREBRAL Result Date: 01/27/2024 Impression: Distal left M4 thrombus from the temporal division. The previously seen left M1 thrombus is resolved. CT THORAX WO CONTRAST Result Date: 01/27/[address] evidence for acute trauma to the chest. There is an age indeterminate superior endplate compression fracture of T8, with 30% vertebral body height loss and no bony retropulsion. Cardiomegaly with prominent coronary arteriosclerosis and mitral valve calcification. Evidence for prior granulomatous disease. RL: 460 AFC: [id number] ABDOMEN PELVIS WO CONTRAST Result Date: 01/27/2024 Acute subcapital fracture of the right femur, new compared to prior CT of 01/22/2024 Cardiomegaly with prominent mitral valve calcification. Status post cholecystectomy. Stable pneumobilia in the central liver. Stable diffuse dilatation of the main pancreatic duct. 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 Stable cystic focus in the right adnexa, measuring 5.2 cm. Dextroconvex scoliosis of the lumbar spine. RL: 460 AFC: [id number] X-ray chest 1 view Result Date: 01/27/2024 Impression: No acute cardiopulmonary finding. RL: [id number] End of Report ABDOMEN PELVIS W WO CONTRAST Result Date: 01/24/2024 * No evidence of pancreatic malignancy. Unchanged dilation of the main pancreatic duct at 7 mm. * Enlarging right adnexal cyst. Consider further evaluation with MRI of the pelvis. * Interval development of nonspecific fluid-filled structure adjacent to the ascending and hepatic flexure colon. This may represent cystic lymphangioma. * Severe wall thickening the bladder. Correlate with urinalysis to exclude cholecystitis. * Global cardiomegaly. Severe atherosclerosis of the aorta. RL: [id number] End of Report. Previous RADIOSONDE OPERATOR Services/Swallow History: No previous RADIOSONDE OPERATOR history noted. Past Medical History: Diagnosis Date Collagenous colitis HTN (hypertension) Past Surgical History: Procedure Laterality Date APPENDECTOMY ENDOSCOPIC RETROGRADE CHOLANGIOPANCRETOGRAPHY N/A 02/21/2022 Surgeon: Christos Denny MD; Location: [facility] ([facility]) OR LOCATION ESOPHAGOGASTRODUODENOSCOPY N/A 11/19/2021 Surgeon: Abiodun Shah MD; Location: [facility]) OR LOCATION ESOPHAGOGASTRODUODENOSCOPY N/A 07/12/2023 Surgeon: Christos Denny MD; Location: [facility] ([facility]) OR LOCATION EXCISION HEPATOPANCREATIC AMPULLA ([facility]X) N/A 04/08/2022 Surgeon: Erasmo Tovar MD; Location: [facility] LOCATION PHACOEMULSIFICATION OF CATARACT WITH INTRAOCULAR LENS IMPLANT Left 10/25/2023 Surgeon: Rajiv Rudolph MD; Location: [facility] LOCATION PHACOEMULSIFICATION OF CATARACT WITH INTRAOCULAR LENS IMPLANT Right 11/29/2023 Surgeon: Rajiv Rudolph MD; Location: [facility] OR LOCATION UPPER ULTRASOUND (SHX) N/A 11/19/2021 Surgeon: Abiodun Shah MD; Location: [facility] ([facility]) OR LOCATION UPPER ULTRASOUND (SHX) N/A 07/12/2023 Surgeon: Christos Denny MD; Location: [facility] ([facility]) OR LOCATION General Behavior: Alert, Confused, and Drowsy Hearing: WFL for speech Respiratory Status: nasal cannula: 2L/min Orientation/Cognition: - Patient oriented to: person and place - Response type: verbal - Follows 1-step commands: Yes Current Diet Texture/Means of Nutrition: regular (IDDSI level 7)-textured diet with thin liquids (IDDSI level 0) Oral Motor Exam Dentition and Oral Cavity: natural dentition, some missing teeth, dry oral mucosa, and dried secretions Face within normal limits and symmetrical Jaw symmetrical and impaired function, characterized by subjective trismus Lips symmetrical and impaired function, characterized by reduced protrusion Tongue midline on protrusion and impaired function, characterized by reduced speed and reduced protrusion Palate within normal limits and symmetrical Vocal Quality hoarse, weak, and rough Speech clear/intelligible CLINICAL SWALLOW EVALUATION Swallows on command: Yes Handles Secretions: Yes Volitional Cough: Did not test Spontaneous Cough: No PO trials were administered by patient. Patient was provided with multiple bites/sips of thin liquid (0), pudding (4), and soft & bite-sized solid (6) consistencies with the following observations: Oral Stage Anterior leakage of bolus not observed Pocketing of bolus not observed Subjectively prolonged oral phase observed with soft & bite-sized solid (6) Oral residue observed (diffuse) with soft & bite-sized solid (6), cleared with liquid wash Mastication prolonged Pharyngeal Stage Subjectively reduced laryngeal elevation not observed Coughing or throat clearing not observed Change in voice quality not observed Multiple swallows subjectively not observed Respiratory sufficiency and coordination WFL - no increased work of breathing and/or oxygen sats and respiratory rate remained stable Report of globus sensation no 3 oz water challenge passed Patient/Family/Staff education: Provided verbally. Discussed findings of evaluation, recommendations and RADIOSONDE OPERATOR plan of care. Patient/family verbalized understanding and is in agreement with plan of care. Patient/Family goal: safe PO intake and improved speech-language skills ASSESSMENT/IMPRESSIONS: Jazz Camargo presents with: Diagnosis: suspected grossly safe and functional oropharyngeal swallow Etiology of suspected dysphagia/Risk factors for dysphagia: suspected stroke Observations/Complaints: no overt s/sx of aspiration Factors raising concern for aspiration or pharyngeal dysphagia: acute stroke Suspected risk for aspiration: no Factors increasing risk for aspiration-related respiratory complication such as pneumonia: none evident Risk for malnutrition/dehydration or not meeting nutritional needs: yes Additional comments: No overt s/sx observed at bedside, however minimal PO observed due to patient discomfort and desire to not eat. RADIOSONDE OPERATOR observed 3oz water challenge and minimal food intake before patient stated she could not eat anymore. *Note: aspiration cannot be ruled out nor confirmed without instrumental assessment/imaging. Prognosis: good for safe po intake with universal swallow precautions due to above findings. RECOMMENDATIONS/GOALS: Diet: Recommend patient continue a regular (IDDSI level 7)-textured diet with thin liquids (IDDSI level 0) Precautions: - Swallow Precautions: sit fully upright/in chair and small single bites/sips Instrumental Swallow Assessment: - Not indicated at this time. Additional Referrals: - Recommend manager land consult if not already following. Continued RADIOSONDE OPERATOR services: Recommend RADIOSONDE OPERATOR therapy 2-5x/wk for 15-45 min/session while in-house to address the following goals: Swallowing: - Patient will tolerate the safest, least restricted po diet texture without overt s/sx of aspiration or other negative effects on medical condition RADIOSONDE OPERATOR will also follow up for full speech-language/cognitive evaluation in the coming days as indicated. Discharge Recommendations: - TBD pending ongoing work-up/progress made while in-house. Vanessa Nichole M.A. [facility] RADIOSONDE OPERATOR Speech Pathologist [phone] Pager: [phone] [facility] 2024-01-27 02:48:50 STROKE SERVICE CONSULT DATE OF SERVICE: 01/27/2024 04:51 CHIEF COMPLAINT: fall and aphasia HISTORY OF PRESENT ILLNESS Jazz Camargo is a 79 year old right handed /White woman with PMHX of HYPERTENSION who presented on 01/27/2024 with aphasia for (LSN 01/26/2024 22:00). Hx obtained from . He reported around 1030 pm they were walking to their front porch to walk their dog and she went back to get her purse when he suddenly heard fall. She was not able to talk and she was looking toward the left side and not able to move the right side EMS was activated and the patient was flight transferred to ED, stroke was activated, on initial exam NIHSS was 15, and suspicion of neck femur fracture was confirmed on xray. So scott ct was obtained to rule out internal bleeding. BP was persistently elevated. NIHSS improved significantly after CT abdomen and was 3. TNK was ordered but not given due to high BP and the patient was taken immediatly to thrombectomy. Antiplatelets: Yes ASA Anticoagulations: No Tobacco abuse: No Alcohol abuse: No Drug abuse: No Previous stroke: No Body mass index is 19.64 kg/m?. STROKE DOCUMENTATION Stroke Activation - Date: 01/27/24 Stroke Activation - Time: 5 Physician arrival at bedside - Date: 01/27/24 Physician arrival at bedside - Time: 9 CT-Head without contrast read by Neurology: 0020 Last seen normal: Last known well - Date: 01/26/24 Last known well - Time: 2229 Wake up stroke: No NIH STROKE SCALE NIHSS TOTAL: 3 NIHSS Interval: Admission LOC: 0 Alert: Keenly Responsive LOC QUESTIONS: 0 Answers Both Questions Correctly LOC COMMANDS: 0 Performs Both Tasks Correctly BEST GAZE: 0 Normal VISUAL: 0 No Visual Loss FACIAL PALSY: 0 Normal MOTOR ARM-LEFT: 0 No Drift MOTOR ARM-RIGHT: 0 No Drift MOTOR LEG-LEFT: 0 No Drift MOTOR LEG-RIGHT: 3 No Effort Against [place] (due to pain, neck of femure fracture) LIMB ATAXIA: 0 Absent SENSORY: 0 Normal BEST LANGUAGE: 0 No Aphasia DYSARTHRIA: 0 Normal EXTINCTION AND INATTENTION (FORMERLY NEGLECT): 0 No Abnormalty Dysphagia Screen: Dysphagia Screen Step 1 (Exclusion Criteria): Patient is not alert or awake for 5 minutes or greater IV Tenecteplase: Reason no IV thrombolytic therapy initiated: Severe head trauma in previous 3 months If IV Thrombolytic therapy was indicated and given as a standard of care was the patient/family informed of benefits of treatment and risk such as hemorrhage and/or angioedema?: (not recorded) Was there a delay in door to IV thrombolytic over 30 minutes?: (not recorded) Reason (s): (not recorded) ICH/SAH ICH/SAH: No Endovascular Intervention: Was Endovascular Intervention Performed?: Yes PRE- ADMISSION MODIFIED STANLEY SCORE 0 - No symptoms at all PAST MEDICAL HISTORY Past Medical History: Diagnosis Date Collagenous colitis HTN (hypertension) PAST SURGICAL HISTORY Past Surgical History: Procedure Laterality Date APPENDECTOMY ENDOSCOPIC RETROGRADE CHOLANGIOPANCRETOGRAPHY N/A 02/21/2022 Surgeon: Christos Denny MD; Location: ENDOSCOPY ([facility]) OR LOCATION ESOPHAGOGASTRODUODENOSCOPY N/A 11/19/2021 Surgeon: Abiodun Shah MD; Location: ENDOSCOPY ([facility]) OR LOCATION ESOPHAGOGASTRODUODENOSCOPY N/A 07/12/2023 Surgeon: Christos Denny MD; Location: ENDOSCOPY ([facility]) OR LOCATION EXCISION HEPATOPANCREATIC AMPULLA (SHX) N/A 04/08/2022 Surgeon: Erasmo Tovar MD; Location: [facility] OR LOCATION PHACOEMULSIFICATION OF CATARACT WITH INTRAOCULAR LENS IMPLANT Left 10/25/2023 Surgeon: Rajiv Rudolph MD; Location: [facility] OR LOCATION PHACOEMULSIFICATION OF CATARACT WITH INTRAOCULAR LENS IMPLANT Right 11/29/2023 Surgeon: Rajiv Rudolph MD; Location: [facility] OR LOCATION UPPER ULTRASOUND (SHX) N/A 11/19/2021 Surgeon: Abiodun Shah MD; Location: ENDOSCOPY ([facility]) OR LOCATION UPPER ULTRASOUND (SHX) N/A 07/12/2023 Surgeon: Christos Denny MD; Location: ENDOSCOPY ([facility]) OR LOCATION FAMILY HISTORY Family History Problem Relation Age of Onset Heart Mother Coronary Heart Disease Father CABG in mid 70s Coronary Heart Disease Brother PCI Other - see comments Brother Rectal Cancer Stomach Cancer Brother SOCIAL HISTORY Social History Socioeconomic History Marital status: Occupational History Occupation: Retired Tobacco Use Smoking status: Every Day Current packs/day: 1.00 Average packs/day: 1 pack/day for 40.0 years (40.0 ttl pk-yrs) Types: Cigarettes Smokeless tobacco: Never Reviewed patient's family, surgical and social hx. HOME MEDICATIONS Medications Prior to Admission Medication Sig Dispense Refill Last Dose vit C/E/zinc ox/sonia/lut/zeax (ICAPS AREDS2 ORAL) Take by mouth. Taking BUDESONIDE ORAL Take 3 mg by mouth in the morning. Pt takes 2 in the morning and 1 at night. 11/29/2023 VITAMIN A ORAL Take 25,000 Units by mouth in the morning. Taking zinc sulfate (ZINC-220 ORAL) Take 1 tablet by mouth in the morning. Taking mfdfbw-tcezlwmx-jjegmyy 12,000-38,000 -60,000 unit capsule Take 2 capsules by mouth in the morning and 2 capsules at noon and 2 capsules in the evening. Take with meals. 250 capsule 3 Taking amLODIPine 5 mg tablet TAKE 1 TABLET BY MOUTH TWO TIMES A DAY NEEDED FOR SBP>140 Taking cholestyramine 4 gram packet MIX AND DRINK 2 PACKETS BY MOUTH TWICE A DAY (MONTH SUPPLY) Not Taking hyoscyamine sulfate 0.125 mg sublingual tablet TAKE 1-2 TABLETS UNDER THE TONGUE EVERY 4-6 HOURS NEEDED Taking levoFLOXacin 750 mg tablet Take 1 tablet by mouth every morning. Taking sucralfate 1 gram tablet TAKE 1 TABLET BY MOUTH BEFORE MEALS AND AT BEDTIME Not Taking vancomycin 250 mg capsule PLEASE SEE ATTACHED FOR DETAILED DIRECTIONS Not Taking acetaminophen with codeine (TYLENOL-CODEINE #3 ORAL) Take by mouth. Not Taking atorvastatin 20 mg tablet Take 1 tablet by mouth at bedtime. Taking losartan 25 mg tablet Take 1 tablet by mouth in the morning. Taking methscopolamine 5 mg tablet Take 1 tablet by mouth at bedtime. Unknown ondansetron (ZOFRAN) 4 mg tablet Take 1 tablet by mouth every 8 (eight) hours as needed. Not Taking ALPRAZolam (XANAX) 0.25 mg tablet Take 0.25 mg by mouth once now. 04/08/22 aspirin 81 mg chewable tablet Take 1 tablet by mouth in the morning. Taking budesonide 3 mg 24 hr capsule Take 3 capsules by mouth every morning. Taking calcium/magnesium/zinc (FCKNKNH-YOFCBNHRMY-CNUK) 333-133-5 mg Tab Take 1 tablet by mouth every evening. Taking carvediloL 25 mg tablet Take 1 tablet by mouth in the morning and 1 tablet in the evening. Take with meals. Taking Cholecalciferol, Vitamin D3, 125 mcg (5,000 unit) tablet Take 1 tablet by mouth in the morning. Taking cyanocobalamin, vitamin B-12, (VITAMIN B-12) 5,000 mcg/mL Drop Place 5,000 mcg under the tongue in the morning. Taking hydrALAZINE 50 mg tablet Take 1 tablet by mouth in the morning and 1 tablet in the evening. Taking Levothyroxine 112 mcg capsule Take 125 mcg by mouth. Taking mesalamine 1.2 gram EC tablet Take 1 tablet by mouth 4 (four) times daily. Taking omeprazole 20 mg capsule Take 2 capsules by mouth in the morning. Taking HOSPITAL MEDICATIONS Current Facility-Administered Medications Medication Dose Route Frequency Last Rate Last Admin acetaminophen (TYLENOL) tablet 1,000 mg 1,000 mg Oral Q6HPRN [START ON 01/28/2024] aspirin chewable tablet 81 mg 81 mg Oral DAILY aspirin tablet 325 mg 325 mg Oral ONCE atorvastatin (LIPITOR) tablet 40 mg 40 mg Oral QHS clopidogreL (PLAVIX) 300 mg tablet 300 mg 300 mg Oral ONCE clopidogreL (PLAVIX) 75 mg tablet 75 mg 75 mg Oral DAILY heparin (porcine) injection 5,000 Units 5,000 Units Subcutaneous Q12H heparin 1,000 unit/mL injection Slow IV Push PRN 2,500 Units at 01/27/24 0302 labetaloL (NORMODYNE) 5 mg/mL injection 10 mg 10 mg Slow IV Push PRN - SEE INSTRUCTIONS 10 mg at 01/27/24 0153 labetaloL (NORMODYNE) 5 mg/mL injection 10 mg 10 mg Slow IV Push [id number] levothyroxine (SYNTHROID) tablet 125 mcg 125 mcg Oral QAM-0600 lidocaine 1% (PF) (XYLOCAINE) injection PRN 5 mL at 01/27/24 0254 NaCl 0.9% (NS) 1000 mL + KCL 20 mEq IV Infusion CONTINUOUS NaCl 0.9% (NS) injection 5 mL 5 mL Slow IV Push PRN - SEE INSTRUCTIONS niCARdipine (CARDENE I.V.) 40 mg in NaCL 200 mL (RTU) infusion 2.5-15 mg/hr IV Infusion TITRATE nitroglycerin 50 mg in D5W 250 mL infusion RTU CONTINUOUS PRN 200 mcg at 01/27/24 0302 Sliding Scale Insulin - Lispro (HumaLOG) Subcutaneous TID MEALS+HS verapamiL (ISOPTIN) injection PRN 2.5 mg at 01/27/24 0302 ALLERGY Allergies Allergen Reactions Morphine Other - See comments Feel "Jittery and displaced" REVIEW OF SYSTEMS As per HPI PHYSICAL EXAM Vitals: 01/27/24 0155 01/27/24 0200 01/27/24 0202 01/27/24 0230 BP: (!) 196/96 (!) 183/103 (!) 188/91 (!) 192/83 Pulse: 66 62 64 65 Resp: 16 14 16 18 Temp: TempSrc: SpO2: 93% 94% 99% 98% Weight: initial exam Mental status: - Level of consciousness: only arousable to noxious stimuli, able to follow simple commands - Language: non verbal and not following commands FOUR (Full Outline of Unresponsiveness) Score Eye Response 3 Eyelids open but not tracking Motor Response 3 Localizing to pain Brainstem Reflexes 4 Pupil and corneal reflexes present Respiration Not intubated, regular breathing pattern Cranial nerves: II: doesn't blink to visual threat in all quadrants III, IV, : No appreciable tracking of examiner's hand. Impaired oculocephalic reflex to horizontal and vertical movements. V: Nares tickling provokes grimace VII: Supraorbital nerve compression yields symmetrical facial grimace VIII: No response to loud vocal stimulation IX/X: not tested XI/XII: reliable examination is not possible Motor and motor: - Tone and bulk: normal - right arm withdrawal to pain but not against gravity, slight movement of right leg with noxious stimulation. Withdrawing to pain in left side. Right leg noted to be externally rotated and shorter that left leg Reflexes: - DTRs: 2+ - Plantar response: up going bilaterally LABS, RADIOLOGY, ELECTROPHYSIOLOGY Labs (last 24 hours): Chemistry CBC LFTs Coags, other 132 (L) 101 14 148 (H) 9.22 10.3 (L) 294 AST: - ALT: - PT: 10.5 INR: 0.9 3.5 24 0.64 30.2 (L) AP: - T [place]: - PTT: 30 eGFR: 91.2 Ca: 8.4 (L) % Bay: - Prot: - Alb: - Lact: 1.72 Mg: - PO4: - ANC: - Procal: - Stroke Cardiac A1C: 5.0 Date: 01/27/2024 Tri (H) Date: 01/27/2024 pBNP: 3,160 (H) Date: 01/27/2024 LDL: 33 Date: 01/27/2024 HDL: 47 (L) Date: 01/27/2024 Trop I: 0.014 Date: 01/27/2024 IR ANGIOGRAM CEREBRAL Result Date: 01/27/2024 Impression: Distal left M4 thrombus from the temporal division. The previously seen left M1 thrombus is resolved. CT THORAX WO CONTRAST Result Date: 01/27/[address] evidence for acute trauma to the chest. There is an age indeterminate superior endplate compression fracture of T8, with 30% vertebral body height loss and no bony retropulsion. Cardiomegaly with prominent coronary arteriosclerosis and mitral valve calcification. Evidence for prior granulomatous disease. RL: 460 AFC: [id number] ABDOMEN PELVIS WO CONTRAST Result Date: 01/27/2024 Acute subcapital fracture of the right femur, new compared to prior CT of 01/22/2024 Cardiomegaly with prominent mitral valve calcification. Status post cholecystectomy. Stable pneumobilia in the central liver. Stable diffuse dilatation of the main pancreatic duct. 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 Stable cystic focus in the right adnexa, measuring 5.2 cm. Dextroconvex scoliosis of the lumbar spine. RL: 460 AFC: [id number] X-ray chest 1 view Result Date: 01/27/2024 Impression: No acute cardiopulmonary finding. RL: 1825 End of Report [employer] Jazz Camargo is a 79 year old right handed woman with PMHX of htn who presented on 01/27/2024 with sudden onset aphasia and right sided weakness accompanied with a fall (LSN 01/27/2024 01/26/2024 ). NIHSS initially 15. CT head unremarkable, CTA head and neck left M1 occlusion examination was concerning for neck of femur fracture. Which was confirmed on imaging. Due to presentation with trauma and hip fracture, a scott CT was obtained was to rule out any internal bleeding. After rodriguez, decision was to give TNK and verbal consent was obtained from the however significant improvement was noted so we had to hold the TNK to reassess the NIHSS which was 3 due to right leg weakness due to pain limitation, however, after prolonged discussion with the patient and the family they wanted to proceed with the TNK, BP was persistently elevated even after labetalol. However, IR called for the patient before TNK administration and the family agreed to go to the angiogram without TNK given. Anatomic localization: left MCA Stroke etiology: Vessel to vessel embolism vs Cardio embolic - Admission to [facility] - Q4H Neurochecks - SBP 140-180 - Obtain CBC, BMP, fasting Lipid panel, HgA1c, TSH, PT, PTT, Troponin x 1, EKG Imaging: - Obtained and reviewed CTH and CTA head and neck, - MRI brain without contrast, and - TTE w/ bubble study Refer to H&P note for full plan and assessment Case seen and discussed with Demetrius Silver MD, Vascular Neurology Faculty LEEANN Howell PGY3, Neurology department Vascular Neurology Service [facility] Associated attestation - Demetrius Silver MD - 01/28/2024 12:58 PM CDT I personally examined the patient on 01/27/24 and agree with the history, physical, assessment and plan as documented in Dr. Dillard's resident note, including any changes or additions that the resident may have made to the medical student's note, with the following highlights, additions and addendums. 79 year old male with PMH of HTN who presented with R sided weakness and aphasia s/p fall which resulted in R hip fracture. She presented as a stroke code activation. CT head w/o contrast negative for acute abnormality, CTA head/neck showing mid to distal L M1 occlusion. NIH was 17 so patient was a candidate for TNK and thrombectomy with a large penumbra and no core. Patient had to have her trauma survey complete before TNK administration to rule out internal bleeding and once this was complete her NIH dramatically improved to NIH of 4 (1 aphasia, 3 RLE which was orthopedic). TNK was not given due to improvement of symptoms and significantly elevated blood pressures that were not able to be controlled. DSA showed recanalization of the L MCA with distal M4 thrombus. Patient's only deficit the next morning was mild aphasia (receptive>expressive) and some paraphasic errors. Will need MRI brain w/o contrast and TTE. Scheduled for hip fracture surgery this weekend. Defer antiplatelets to ortho team. Can start on statin and will work patient up for likely cardioembolic cause of stroke. Demetrius Silver MD Vascular Neurology [facility] 2024-01-27 01:27:23 Associated Order(s): CONSULT ORTHOPAEDIC SURGERY Images from the original note were not included. ORTHOPAEDIC SURGERY CONSULT HISTORY & PHYSICAL 01/27/2024 Reason for consult: Hip fx HISTORY OF PRESENT ILLNESS Jazz Camargo is a 79 year old female who states that earlier today they took a fall onto their RLE after having a stroke this evening around 10:30pm. Per , they were walking to their front porch to let their dogs out, when she fell down. EMS was called and she was found to have R facial droop and R sided arm and leg weakness. They endorsed immediate pain and deformity to that extremity. Prior to the fall they ambulated independently. On ASA 81 at home. Patient was GCS 11 on arrival but her condition improved by arrival to bedside. Currently GCS 15 and alert and oriented to person, place and time. Pt unable to bear weight after injury. Treatments tried: none. Previous injury: none. Alleviating factors: immobilization. Aggravating factors: mobilization. Lives [place] [address] [place] [address] [place] [address] PAST HISTORIES Past Medical History: Diagnosis Date Collagenous colitis HTN (hypertension) Past Surgical History: Procedure Laterality Date APPENDECTOMY ENDOSCOPIC RETROGRADE CHOLANGIOPANCRETOGRAPHY N/A 02/21/2022 Surgeon: Christos Denny MD; Location: ENDOSCOPY ([facility]) OR LOCATION ESOPHAGOGASTRODUODENOSCOPY N/A 11/19/2021 Surgeon: Abiodun Shah MD; Location: ENDOS[facility] ([facility]) OR LOCATION ESOPHAGOGASTRODUODENOSCOPY N/A 07/12/2023 Surgeon: Christos Denny MD; Location: ENDOSCOPY ([facility]) OR LOCATION EXCISION HEPATOPANCREATIC AMPULLA ([facility]X) N/A 04/08/2022 Surgeon: Erasmo Tovar MD; Location: [facility] LOCATION PHACOEMULSIFICATION OF CATARACT WITH INTRAOCULAR LENS IMPLANT Left 10/25/2023 Surgeon: Rajiv Rudolph MD; Location: [facility] LOCATION PHACOEMULSIFICATION OF CATARACT WITH INTRAOCULAR LENS IMPLANT Right 11/29/2023 Surgeon: Rajiv Rudolph MD; Location: [facility] LOCATION UPPER ULTRASOUND (SHX) N/A 11/19/2021 Surgeon: Abiodun Shah MD; Location: [facility]OS[facility] ([facility]) OR LOCATION UPPER ULTRASOUND (SHX) N/A 07/12/2023 Surgeon: Christos Denyn MD; Location: ENDOSCOPY ([facility]) OR LOCATION Family History Problem Relation Age of Onset Heart Mother Coronary Heart Disease Father CABG in mid 70s Coronary Heart Disease Brother PCI Other - see comments Brother Rectal Cancer Stomach Cancer Brother MEDICATIONS Current Facility-Administered Medications Medication Dose Route Frequency Last Rate Last Admin labetaloL (NORMODYNE) 5 mg/mL injection 10 mg 10 mg Slow IV Push PRN - SEE INSTRUCTIONS NaCl 0.9% (NS) injection 5 mL 5 mL Slow IV Push PRN - SEE INSTRUCTIONS Tenecteplase (TNKASE) for Acute Ischemic Stroke Injection 13.8 mg 0.25 mg/kg Slow IV Push ONCE Current Outpatient Medications Medication Sig Dispense Refill vit C/E/zinc ox/sonia/lut/zeax (ICAPS AREDS2 ORAL) Take by mouth. BUDESONIDE ORAL Take 3 mg by mouth in the morning. Pt takes 2 in the morning and 1 at night. VITAMIN A ORAL Take 25,000 Units by mouth in the morning. zinc sulfate (ZINC-220 ORAL) Take 1 tablet by mouth in the morning. hgvjdg-dmdiyscn-bkqycyl 12,000-38,000 -60,000 unit capsule Take 2 capsules by mouth in the morning and 2 capsules at noon and 2 capsules in the evening. Take with meals. 250 capsule 3 amLODIPine 5 mg tablet TAKE 1 TABLET BY MOUTH TWO TIMES A DAY NEEDED FOR SBP>140 cholestyramine 4 gram packet MIX AND DRINK 2 PACKETS BY MOUTH TWICE A DAY (MONTH SUPPLY) hyoscyamine sulfate 0.125 mg sublingual tablet TAKE 1-2 TABLETS UNDER THE TONGUE EVERY 4-6 HOURS NEEDED levoFLOXacin 750 mg tablet Take 1 tablet by mouth every morning. sucralfate 1 gram tablet TAKE 1 TABLET BY MOUTH BEFORE MEALS AND AT BEDTIME vancomycin 250 mg capsule PLEASE SEE ATTACHED FOR DETAILED DIRECTIONS acetaminophen with codeine (TYLENOL-CODEINE #3 ORAL) Take by mouth. atorvastatin 20 mg tablet Take 1 tablet by mouth at bedtime. losartan 25 mg tablet Take 1 tablet by mouth in the morning. methscopolamine 5 mg tablet Take 1 tablet by mouth at bedtime. ondansetron (ZOFRAN) 4 mg tablet Take 1 tablet by mouth every 8 (eight) hours as needed. ALPRAZolam (XANAX) 0.25 mg tablet Take 0.25 mg by mouth once now. aspirin 81 mg chewable tablet Take 1 tablet by mouth in the morning. budesonide 3 mg 24 hr capsule Take 3 capsules by mouth every morning. calcium/magnesium/zinc (EQAQNGI-JYKJFLGZPU-KZYG) 333-133-5 mg Tab Take 1 tablet by mouth every evening. carvediloL 25 mg tablet Take 1 tablet by mouth in the morning and 1 tablet in the evening. Take with meals. Cholecalciferol, Vitamin D3, 125 mcg (5,000 unit) tablet Take 1 tablet by mouth in the morning. cyanocobalamin, vitamin B-12, (VITAMIN B-12) 5,000 mcg/mL Drop Place 5,000 mcg under the tongue in the morning. hydrALAZINE 50 mg tablet Take 1 tablet by mouth in the morning and 1 tablet in the evening. Levothyroxine 112 mcg capsule Take 125 mcg by mouth. mesalamine 1.2 gram EC tablet Take 1 tablet by mouth 4 (four) times daily. omeprazole 20 mg capsule Take 2 capsules by mouth in the morning. ALLERGIES Allergies Allergen Reactions Morphine Other - See comments Feel "Jittery and displaced" SOCIAL Social History Occupational History Occupation: Retired Tobacco Use Smoking status: Every Day Current packs/day: 1.00 Average packs/day: 1 pack/day for 40.0 years (40.0 ttl pk-yrs) Types: Cigarettes Smokeless tobacco: Never Substance and Sexual Activity Alcohol use: Not on file Drug use: Not on file Sexual activity: Not on file REVIEW OF SYSTEMS See HPI for pertinent PHYSICAL EXAMINATION CONSTITUTIONAL: BP (!) 176/104 | Pulse 63 | Temp 35.9 ?C (96.7 ?F) (Axillary) | Resp 21 | Wt 55.2 kg (121 lb 11.1 oz) | SpO2 93% | BMI 19.64 kg/m? Constitutional: NAD Right lower extremity - No wounds - Generalized TTP of the hip - TA/GS/EHL/FHL intact - Sensation grossly intact to light touch - Palpable dorsalis pedis pulse IMAGING X-ray chest 1 view Result Date: 01/27/2024 Impression: No acute cardiopulmonary finding. RL: 1825 End of Report 01/27/2024 XR R hip/femur: closed displaced femoral neck fracture Radiographs personally reviewed and interpreted by myself and faculty. ASSESSMENT Jazz Camargo is a 79 year old female who ambulates at baseline independently with hx of HTN presenting with a right displaced femoral neck fracture after a fall due to stroke yesterday evening. Patient to go to IR for cerebral angiogram vs thrombectomy. Will plan for R hip hemiarthroplasty after stroke workup. PLAN/RECOMMENDATIONS - NSQIP: see below - Pain control with multimodal - NWB RLE - Admit to neuro ICU per stroke protocol - Disposition: pending OR for R hip jesus when medically appropriate - Will obtain further imaging if pain persists despite therapy - Advised to contact us with questions/concerns - All findings and diagnoses were discussed at time of visit. Are in agreement with the treatment plan at this time. - Independently reviewed current and previous imaging for comparison, if applicable, as well as relevant lab results. I discussed my findings and provided education on the condition present. All questions answered to satisfaction. Alvarado Wood MD Orthopaedic Surgery After discussion with Dr. Wood, I personally examined the patient, and personally performed a history and physical examination. Furthermore, I personally discussed the subsequent workup/treatment recommendations with the patient. Finally, I agree with resident's note as written. Non operative measures as well as operative intervention offered and explained. At this time the patient desires to pursue surgical care. Indications, operative risks, potential outcomes and benefits discussed and reviewed in detail. Operative risks discussed included but were not limited to infection, continued pain, increasing pain, no improvement, scarring, stiffness, loss of motion, need for lengthy rehabilitation in the postoperative phases, worsening of the condition, need for revision and/or further surgical care, fracture of bone, loosening of prosthesis or implants either in the short-term or long-term, compromise to life and/or limb, bleeding, blood clots, compartment syndrome issues, transfusion risks, allograft risks, potential injury to associated structures which may include nerve, vessel, muscle, tendon, ligament, and/or bone or cartilage which may result in loss of muscle strength, changes or losses in sensation, and/or limb dysfunction or deformity, less prevalent complications, unforeseen circumstances. Both written and verbal consent were obtained. All questions were answered and thoroughly reviewed. Pre-operative evaluation/clearance to be performed by primary care physician/medical physician, anesthesia team, prior to operative intervention for evaluation of medical preparedness to undergo anesthesia and operative stress. Instructions for this/these evaluations were given to the patient and appropriate family/companions in attendance. No guarantees were expressed or implied other than due diligence. [facility] hospital 2024-01-27 01:09:00 NEUROSURGERY CONSULTATION HISTORY AND PHYSICAL Attending Neurosurgeon: Dr. Magaña Reason for Consultation: Suspected L MCA stroke HPI: Jazz Camargo is a 79 year old female with PMH of HTN, hypothyroidism who presented to ED with altered mental status and fall. She was initially found to have NIHSS of 15 on arrival. Last known normal 10:30pm. Stroke code was activated with CTA revealing L distal M1 thrombus. Upon my arrival to bedside, patient with NIHSS due to inability to raise right leg, largely pain limited. Other injuries: right hip fracture Past Medical History: Past Medical History: Diagnosis Date Collagenous colitis HTN (hypertension) Past Surgical History: Past Surgical History: Procedure Laterality Date APPENDECTOMY ENDOSCOPIC RETROGRADE CHOLANGIOPANCRETOGRAPHY N/A 02/21/2022 Surgeon: Christos Denny MD; Location: [facility] ([facility]) OR LOCATION ESOPHAGOGASTRODUODENOSCOPY N/A 11/19/2021 Surgeon: Abiodun Shah MD; Location: [facility] ([facility]) OR LOCATION ESOPHAGOGASTRODUODENOSCOPY N/A 07/12/2023 Surgeon: Christos Denny MD; Location: [facility] ([facility]) OR LOCATION EXCISION HEPATOPANCREATIC AMPULLA (SHX) N/A 04/08/2022 Surgeon: Erasmo Tovar MD; Location: [facility] OR LOCATION PHACOEMULSIFICATION OF CATARACT WITH INTRAOCULAR LENS IMPLANT Left 10/25/2023 Surgeon: Rajiv Rudolph MD; Location: [facility] OR LOCATION PHACOEMULSIFICATION OF CATARACT WITH INTRAOCULAR LENS IMPLANT Right 11/29/2023 Surgeon: Rajiv Rudolph MD; Location: [facility] OR LOCATION UPPER ULTRASOUND (SHX) N/A 11/19/2021 Surgeon: Abiodun Shah MD; Location: [facility] ([facility]) OR LOCATION UPPER ULTRASOUND (SHX) N/A 07/12/2023 Surgeon: Christos Denny MD; Location: [facility] ([facility]) OR LOCATION Family History: not pertinent to this encounter Social History: not pertinent to this encounter ROS A 10 system ROS was negative apart from the pertinent positives noted in the HPI above. Physical Exam Vitals: Vitals: 01/27/24 0055 01/27/24 0125 01/27/24 0145 01/27/24 0155 BP: (!) 136/109 (!) 176/104 (!) 193/87 (!) 196/96 Pulse: 61 63 63 66 Resp: 16 21 17 16 Temp: TempSrc: SpO2: 96% 93% 94% 93% Weight: Awake, alert, oriented x4 PERRL bilaterally at 2mm, EOMI Face symmetric, Tongue midline CN II-XII intact BUE 5/5 Wiggles toes bilaterally BLE unable to lift against gravity due to pain in right hip Sensation intact to LT throughout DTR: 2+ No drift No clonus No Lama's Labs: Hemogram Recent Labs 01/27/2436 WBC 9.22 HGB 10.3* HCT 30.2* PLT 294 Chemistry Recent Labs 01/27/2436 NA 132* K 3.5 CL 101 TCO2 24 BUN 14 CREAT 0.64 GLU 148* CA 8.4* Coagulation Profile Recent Labs 01/27/2436 PTPAT 10.5 PTINR 0.9 APTTPAT 30 Imaging: CT THORAX WO CONTRAST Result Date: 01/27/[address] evidence for acute trauma to the chest. There is an age indeterminate superior endplate compression fracture of T8, with 30% vertebral body height loss and no bony retropulsion. Cardiomegaly with prominent coronary arteriosclerosis and mitral valve calcification. Evidence for prior granulomatous disease. RL: 460 AFC: [id number] ABDOMEN PELVIS WO CONTRAST Result Date: 01/27/2024 Acute subcapital fracture of the right femur, new compared to prior CT of 01/22/2024 Cardiomegaly with prominent mitral valve calcification. Status post cholecystectomy. Stable pneumobilia in the central liver. Stable diffuse dilatation of the main pancreatic duct. 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 Stable cystic focus in the right adnexa, measuring 5.2 cm. Dextroconvex scoliosis of the lumbar spine. RL: 460 AFC: [id number] X-ray chest 1 view Result Date: 01/27/2024 Impression: No acute cardiopulmonary finding. RL: 1825 End of Report ABDOMEN PELVIS W WO CONTRAST Result Date: 01/24/2024 * No evidence of pancreatic malignancy. Unchanged dilation of the main pancreatic duct at 7 mm. * Enlarging right adnexal cyst. Consider further evaluation with MRI of the pelvis. * Interval development of nonspecific fluid-filled structure adjacent to the ascending and hepatic flexure colon. This may represent cystic lymphangioma. * Severe wall thickening the bladder. Correlate with urinalysis to exclude cholecystitis. * Global cardiomegaly. Severe atherosclerosis of the aorta. RL: [id number] End of Report. Assessment: Jazz Camargo is a 79 year old female PMH of HTN, hypothyroidism who presented to ED with altered mental status and fall. L distal M1 thrombus on CTA, volume infarct 2, mismatch volume 60, mismatch ratio 32a, aspect 10. Recommendations: To IR for cerebral angiogram, possible mechanical thrombectomy/thrombolysis Case discussed with Faculty. Cheryl Godinez MD Neurosurgery Resident ..After discussion with Dr. Godinez, I examined this patient. I agree with resident's note as written. 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 Patient recently admitted under neurology service from 01/27/24 - 02/02/24 and was treated for two main conditions: acute left posterior temporal-parietal stroke and right displaced femoral neck fracture. For the stroke, patient was loaded with aspirin with plan to continue aspirin 235 daily along with Eliquis. For the hip fracture, orthopedic surgery performed a right hip hemiarthroplasty on 01/28/24 with instructions to follow up in 4-weeks for a post-operative meeting but has not been able to and does not know why the rehab facility did not take her. She was discharged to [facility] where they noticed persistent bleeding from the right hip surgical incision site. Per EMS, dressing was changed prior to transport and was already saturated upon arrival to the ED. She says she has been trying her best to work with PT at the rehab facility but endorses pain that limits her to about 10 steps with the rolling walker. Says she is typically given two pain medicines at rehab (one q6h and one q8h), which help the pain but make her very sleepy. Endorses working pain today in the right hip that radiates all the way down her leg. Says this started all of a sudden today, not sure what exacerbated it. She denies any difficulty breathing or SOB, chest pain, abdominal pain, n/v, fever/chills but does endorse 3 episodes of diarrhea within the last 2 days (intermittent given history of pancreatic insufficiency). She says she did not eat or drink much today due to pain and discomfort (just wasn't hungry or thirsty) and has not urinated since this morning. Also endorses a headache and fatigue, which she thinks is from not eating/drinking much. Of note, patient says her is currently admitted at [facility] due to bladder cancer. She becomes tearful when talking about this. Also says she feels like people have not been taking the time to listen to her, which has also been making her feel upset, especially as she has been in consistent pain ever since her discharge from the hospital 3-4 weeks ago. In the ED: Vitals: BP 103/62, HR 72, spo2 98%, afebrile Significant labs: hgb 7.8 (8.3 when discharged), Na 124, K 3, Cl 94 Imaging: XR femur/hipswith expected postoperative changes. CTH w/o without acute intracranial hemorrhage or mass effect but did show global volume loss, findings suggestive of microvascular disease, and encephalomalacia involving the left superior parietal lobe. Interventions: orthopedic surgery consulted, no acute surgical inervention. AC held. 1L NS bolus provided. PAST MEDICAL HISTORY Past Medical History: Diagnosis Date Collagenous colitis HTN (hypertension) Past Surgical History: Procedure Laterality Date APPENDECTOMY ENDOSCOPIC RETROGRADE CHOLANGIOPANCRETOGRAPHY N/A 02/21/2022 Surgeon: Christos Denny MD; Location: [facility] ([facility]) OR LOCATION ESOPHAGOGASTRODUODENOSCOPY N/A 11/19/2021 Surgeon: Abiodun Shah MD; Location: [facility] ([facility]) OR LOCATION ESOPHAGOGASTRODUODENOSCOPY N/A 07/12/2023 Surgeon: Christos Denny MD; Location: [facility] ([facility]) OR LOCATION EXCISION HEPATOPANCREATIC AMPULLA (SHX) N/A 04/08/2022 Surgeon: Erasmo Tovar MD; Location: [facility] OR LOCATION HIP HEMIARTHROPLASTY Right 01/28/2024 Surgeon: Radha Lozano MD; Location: [facility] OR LOCATION PHACOEMULSIFICATION OF CATARACT WITH INTRAOCULAR LENS IMPLANT Left 10/25/2023 Surgeon: Rajiv Rudolph MD; Location: [facility] OR LOCATION PHACOEMULSIFICATION OF CATARACT WITH INTRAOCULAR LENS IMPLANT Right 11/29/2023 Surgeon: Rajiv Rudolph MD; [facility] OR LOCATION UPPER ULTRASOUND (SHX) N/A 11/19/2021 Surgeon: Abiodun Shah MD; Location: ENDOSCOPY ([facility]) OR LOCATION UPPER ULTRASOUND (SHX) N/A 07/12/2023 Surgeon: Christos Denny MD; Location: ENDOSCOPY ([facility]) OR LOCATION Family History Problem Relation Age of Onset Heart Mother Coronary Heart Disease Father CABG in mid 70s Coronary Heart Disease Brother PCI Other - see comments Brother Rectal Cancer Stomach Cancer Brother ALLERGIES Allergies Allergen Reactions Morphine Other - See comments Feel "Jittery and displaced" MEDICATIONS No current facility-administered medications on file prior to encounter. Current Outpatient Medications on File Prior to Encounter Medication Sig Dispense Refill aspirin 325 mg tablet Take 1 tablet by mouth in the morning. apixaban 5 mg tablet Take 1 tablet by mouth in the morning and 1 tablet in the evening. Do all this for 90 days. Indications: atrial fibrillation 60 tablet 2 vit C/E/zinc ox/sonia/lut/zeax (ICAPS AREDS2 ORAL) Take by mouth. BUDESONIDE ORAL Take 3 mg by mouth in the morning. Pt takes 2 in the morning and 1 at night. VITAMIN A ORAL Take 25,000 Units by mouth in the morning. zinc sulfate (ZINC-220 ORAL) Take 1 tablet by mouth in the morning. klxnhy-mbviitfh-swsnydu 12,000-38,000 -60,000 unit capsule Take 2 capsules by mouth in the morning and 2 capsules at noon and 2 capsules in the evening. Take with meals. 250 capsule 3 amLODIPine 5 mg tablet TAKE 1 TABLET BY MOUTH TWO TIMES A DAY NEEDED FOR SBP>140 hyoscyamine sulfate 0.125 mg sublingual tablet TAKE 1-2 TABLETS UNDER THE TONGUE EVERY 4-6 HOURS NEEDED sucralfate 1 gram tablet TAKE 1 TABLET BY MOUTH BEFORE MEALS AND AT BEDTIME acetaminophen with codeine (TYLENOL-CODEINE #3 ORAL) Take by mouth. atorvastatin 20 mg tablet Take 1 tablet by mouth at bedtime. losartan 25 mg tablet Take 1 tablet by mouth in the morning. methscopolamine 5 mg tablet Take 1 tablet by mouth at bedtime. ondansetron (ZOFRAN) 4 mg tablet Take 1 tablet by mouth every 8 (eight) hours as needed. budesonide 3 mg 24 hr capsule Take 3 capsules by mouth every morning. calcium/magnesium/zinc (XUZBAZA-IJSMRJVYME-RUOP) 333-133-5 mg Tab Take 1 tablet by mouth every evening. carvediloL 25 mg tablet Take 1 tablet by mouth in the morning and 1 tablet in the evening. Take with meals. Cholecalciferol, Vitamin D3, 125 mcg (5,000 unit) tablet Take 1 tablet by mouth in the morning. cyanocobalamin, vitamin B-12, (VITAMIN B-12) 5,000 mcg/mL Drop Place 5,000 mcg under the tongue in the morning. hydrALAZINE 50 mg tablet Take 1 tablet by mouth in the morning and 1 tablet in the evening. Levothyroxine 112 mcg capsule Take 125 mcg by mouth. mesalamine 1.2 gram EC tablet Take 1 tablet by mouth 4 (four) times daily. omeprazole 20 mg capsule Take 2 capsules by mouth in the morning. SOCIAL HISTORY Social History Socioeconomic History Marital status: Spouse name: Logan Camargo Occupational History Occupation: Retired Tobacco Use Smoking status: Every Day Current packs/day: 0.50 Average packs/day: 0.5 packs/day for 60.0 years (30.0 ttl pk-yrs) Types: Cigarettes Smokeless tobacco: Never Social Determinants of Health Financial Resource Strain: Low Risk (01/27/2024) Overall Financial Resource Strain (CARDIA) Difficulty of Paying Living Expenses: Not very hard Food Insecurity: Food Insecurity Present (01/27/2024) Hunger Vital Sign Worried About Running Out of Food in the Last Year: Sometimes true Ran Out of Food in the Last Year: Sometimes true Physical Activity: Inactive (01/27/2024) Exercise Vital Sign Days of Exercise per Week: 0 days Minutes of Exercise per Session: 0 min Social Connections: Unknown (01/27/2024) Social Connection and Isolation Panel [NHANES] Frequency of Communication with Friends and Family: Never Marital Status: Housing Stability: High Risk (01/27/2024) Housing Stability Vital Sign Unable to Pay for Housing in the Last Year: Yes Number of Places Lived in the Last Year: 1 Unstable Housing in the Last Year: No REVIEW OF SYSTEMS Pertinent positives and negatives per above HPI. Objective PHYSICAL EXAMINATION Vitals: 02/24/24 1657 02/24/24 1942 02/24/24 2219 BP: 103/62 115/50 135/58 BP Location: Left arm Patient Position: Supine Pulse: 72 76 59 Resp: 18 18 16 Temp: 36.3 ?C (97.4 ?F) 36.3 ?C (97.3 ?F) TempSrc: Oral Tympanic SpO2: 98% 100% 93% Weight: 47.6 kg (105 lb) Height: 1.651 m (5' 5") Physical exam: General: NAD, a&ox3 Mouth: dry mucous membranes Cardiac: RRR; no murmurs Resp: CTAB Abd: soft; NT; ND; normoactive BS Ext: R hip bandage clean and dry (just replaced bandage, minimal bleeding); pain with palpation of R hip; R leg with brace extending from thigh to lower leg; no BLE pitting edema LABS/IMAGING - reviewed EKG: pending CHART REVIEW: pertinent information as below: Hospital course (01/27/24 - 02/02/24) Jazz Camargo is a 79 year old right handed female with PMHX of htn who presented on 01/27/2024 with sudden onset aphasia and right sided weakness accompanied with a fall ( 01/26/2024 ). NIHSS initially 15. CT head unremarkable, CTA head and neck left M1 occlusion examination was concerning for neck of femur fracture. Which was confirmed on imaging. Due to presentation with trauma and hip fracture, a scott CT was obtained was to rule out any internal bleeding. TNK not given due to BP persistently elevated even after labetalol and recent fracture. However, IR called for the patient before TNK administration and the family agreed to go to the angiogram without TNK given. DSA was done and showed fully recanalized LMCA, and distal left M4 occlusion so no thrombectomy was done. R hip hemiarthroplasty done on 01/28/2024. Restarted DVT prophylaxis. Repeat CTH wo contrast on 01/28/2024, reporting acute/subacute infarct in the left posterior temporal lobe. MRI of the brain on 01/29/2024 with acute left posterior temporal-parietal region. Hgb dropped to 5.1, requiring 2 units of PRBCs, repeat Hgb: 9.0. The patient spiked a fever on 01/30/2024, blood cultures negative for 24 hours, UA: negative. The patient mentation improved. Aspirin 650 mg loading dose ordered, followed by 325 mg daily. The patient is table and being transferred to the floor. Patient switched from Levenox to eliquis after discussion with ortho. Stable for discharge to rehab. PLAN / ITEMS FOR FOLLOW UP PROVIDER: - Please ensure f/u with orthopedics for neck femur fracture - Follow up in Stroke Clinic in 4-6 weeks - Repeat CBC for checking Hemoglobin. 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 Hgb stable, currently 7.8 compared to 8.3 from discharge. HDS stable. BP low normal in the setting of hx of HTN (although patient says she received BP meds today) may indicate volume depletion, possibly 2/2 blood loss as hgb has not improved since discharge (decreased during this past admission likely 2/2 operation but has not improved since then), while electrolyte abnormalities and dry mucous membranes reflect volume depletion from reduced PO intake and diarrhea. Will provide another small bolus with caution as worsening hyponatremia may be 2/2 SIADH in the setting of recent CVA. Appreciate ortho guidance, discuss AC with neurology in the AM. - admit to [facility] - admission labs - iron panel, ferritin. Patient may benefit from IV iron - hold AC: aspirin and Eliquis - appreciate ortho recs: - no acute surgical intervention - WBAT RLE - PT/OT while inpatient, consulted - bilateral SCDs for DVT prophylaxis; however, patient presented with R leg brace. Says she does not take it off at the rehab facility, touch base with ortho about need for this as it prevents usage of SCD on the right leg - consider neuro consult to discuss AC given acute bleeding - SIADH work up: urine studies; urine and blood osms - 500 cc bolus NS, monitor Na as patient may need fluid restriction if SIADH - replete K - continue some home BP meds and escalate as indicated: - continue amlodipine 5 mg daily - continue carvedilol 25 mg BID - continue losartan 25 mg daily - hold home hydralazine - pain control with T3 q6hprn for now, may need to escalate - telemetry given recent hx of stroke that was likely cardio-embolic Chronic conditions: Hx collagenous colitis Hypothyroidism GERD Gastritis Gastric ulcer 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 Continue meds per clinic note: PPI BID; Creon 3 capsules with breakfast and dinner, 2 capsules with lunch, 1 capsule with snacks; hold budesonide (not on formulary) and mesalamine - can resume upon discharge Pain Uncontrolled Tylenol-3 Prophylaxis: DVT - SCDs given active bleeding Stress Ulcer: pantoprazole Code Status: DNR, With Noninvasive Ventilation Only Mirela Bryant MD Internal Medicine | PGY-2 Associated attestation - Vince Buchanan MD - 02/25/2024 12:25 AM CDT I personally examined the patient on 02/24/[address] Bryant's resident note as written. I actively participated in the decision-making process. Please see the resident's note for additional details. Vince Buchanan MD Division of Internal Case WorkerMonument Letterer -INTERNAL MEDICINE [facility] 2024-01-27 03:20:40 NEUROSCIENCES CRITICAL CARE UNIT HISTORY AND PHYSICAL DATE OF SERVICE: 01/27/2024 03:20 CHIEF COMPLAINT: aphasia and right sided weakness Code status: addressed: full code HISTORY OF PRESENT ILLNESS Jazz Camargo is a 79 year old right handed /White woman with PMHX of HYPERTENSION who presented on 01/27/2024 with aphasia for (LSN 01/26/2024 22:00). Hx obtained from . He reported around 1030 pm they were walking to their front porch to walk their dog and she went back to get her purse when he suddenly heard fall. She was not able to talk and she was looking toward the left side and not able to move the right side EMS was activated and the patient was flight transferred to ED, stroke was activated, on initial exam NIHSS was 15, and suspicion of neck femur fracture was confirmed on xray. So scott ct was obtained to rule out internal bleeding. BP was persistently elevated. NIHSS improved significantly after CT abdomen and was 3. TNK was ordered but not given due to high BP and the patient was taken immediatly to thrombectomy. Antiplatelets: Yes Anticoagulations: No Tobacco abuse: No Alcohol abuse: No Drug abuse: No Previous stroke: No Body mass index is 19.64 kg/m?. STROKE DOCUMENTATION Stroke Activation - Date: 01/27/24 Stroke Activation - Time: 000 Physician arrival at bedside - Date: 01/27/24 Physician arrival at bedside - Time: 9 CT-Head without contrast read by Neurology: 0020 Last seen normal: Last known well - Date: 01/26/24 Last known well - Time: 2229 Wake up stroke: No NIH STROKE SCALE NIHSS TOTAL: 3 NIHSS Interval: Admission LOC: 0 Alert: Keenly Responsive LOC QUESTIONS: 0 Answers Both Questions Correctly LOC COMMANDS: 0 Performs Both Tasks Correctly BEST GAZE: 0 Normal VISUAL: 0 No Visual Loss FACIAL PALSY: 0 Normal MOTOR ARM-LEFT: 0 No Drift MOTOR ARM-RIGHT: 0 No Drift MOTOR LEG-LEFT: 0 No Drift MOTOR LEG-RIGHT: 3 No Effort Against [place] (due to pain, neck of femure fracture) LIMB ATAXIA: 0 Absent SENSORY: 0 Normal BEST LANGUAGE: 0 No Aphasia DYSARTHRIA: 0 Normal EXTINCTION AND INATTENTION (FORMERLY NEGLECT): 0 No Abnormalty Dysphagia Screen: Dysphagia Screen Step 1 (Exclusion Criteria): Patient is not alert or awake for 5 minutes or greater IV tenecteplase: Reason no IV thrombolytic therapy initiated: Severe head trauma in previous 3 months If IV Thrombolytic therapy was indicated and given as a standard of care was the patient/family informed of benefits of treatment and risk such as hemorrhage and/or angioedema?: (not recorded) Was there a delay in door to IV thrombolytic over 30 minutes?: (not recorded) Reason (s): (not recorded) ICH/SAH ICH/SAH: No Endovascular Intervention: Was Endovascular Intervention Performed?: Yes PRE- ADMISSION MODIFIED STANLEY SCORE 0 - No symptoms at all PAST MEDICAL HISTORY Past Medical History: Diagnosis Date Collagenous colitis HTN (hypertension) PAST SURGICAL HISTORY Past Surgical History: Procedure Laterality Date APPENDECTOMY ENDOSCOPIC RETROGRADE CHOLANGIOPANCRETOGRAPHY N/A 02/21/2022 Surgeon: Christos Denny MD; Location: [facility] ([facility]) OR LOCATION ESOPHAGOGASTRODUODENOSCOPY N/A 11/19/2021 Surgeon: Abiodun Shah MD; Location: [facility] ([facility]) OR LOCATION ESOPHAGOGASTRODUODENOSCOPY N/A 07/12/2023 Surgeon: Christos Denny MD; Location: [facility] ([facility]) OR LOCATION EXCISION HEPATOPANCREATIC AMPULLA (SHX) N/A 04/08/2022 Surgeon: Erasmo Tovar MD; Location: [facility] OR LOCATION PHACOEMULSIFICATION OF CATARACT WITH INTRAOCULAR LENS IMPLANT Left 10/25/2023 Surgeon: Rajiv Rudolph MD; Location: [facility] OR LOCATION PHACOEMULSIFICATION OF CATARACT WITH INTRAOCULAR LENS IMPLANT Right 11/29/2023 Surgeon: Rajiv Rudolph MD; Location: [facility] OR LOCATION UPPER ULTRASOUND (SHX) N/A 11/19/2021 Surgeon: Abiodun Shah MD; Location: [facility]) OR LOCATION UPPER ULTRASOUND (SHX) N/A 07/12/2023 Surgeon: Christos Denny MD; Location: [facility]OSCOPY ([facility]) OR LOCATION FAMILY HISTORY Family History Problem Relation Age of Onset Heart Mother Coronary Heart Disease Father CABG in mid 70s Coronary Heart Disease Brother PCI Other - see comments Brother Rectal Cancer Stomach Cancer Brother SOCIAL HISTORY reports that she has been smoking cigarettes. She has a 40 pack-year smoking history. She has never used smokeless tobacco. Reviewed patient's family, surgical and social hx. HOME MEDICATIONS Current Outpatient Medications Medication Instructions acetaminophen with codeine (TYLENOL-CODEINE #3 ORAL) Oral ALPRAZolam (XANAX) 0.25 mg, Oral, ONCE amLODIPine 5 mg tablet TAKE 1 TABLET BY MOUTH TWO TIMES A DAY NEEDED FOR SBP>140 aspirin 81 mg, Oral, DAILY atorvastatin (LIPITOR) 20 mg, Oral, QHS budesonide (ENTOCORT EC) 9 mg, Oral, QAM BUDESONIDE ORAL 3 mg, Oral, DAILY, Pt takes 2 in the morning and 1 at night. calcium/magnesium/zinc (DRXRENI-DBFRMLXRUJ-ADCX) 333-133-5 mg Tab 1 tablet, Oral, QPM carvediloL (COREG) 25 mg, Oral, BID MEALS Cholecalciferol, Vitamin D3, 125 mcg (5,000 unit) tablet 1 tablet, Oral, DAILY cholestyramine 4 gram packet MIX AND DRINK 2 PACKETS BY MOUTH TWICE A DAY (MONTH SUPPLY) hydrALAZINE (APRESOLINE) 50 mg, Oral, BID hyoscyamine sulfate 0.125 mg sublingual tablet TAKE 1-2 TABLETS UNDER THE TONGUE EVERY 4-6 HOURS NEEDED levoFLOXacin (LEVAQUIN) 750 mg, Oral, QAM Levothyroxine (TIROSINT) 125 mcg, Oral ojwlwu-impsnlhd-jdvmtkb 12,000-38,000 -60,000 unit capsule 2 capsules, Oral, TID MEALS losartan (COZAAR) 25 mg, Oral, DAILY mesalamine (LIALDA) 1,200 mg, Oral, QID methscopolamine (PAMINE FORTE) 5 mg, Oral, QHS omeprazole (PRILOSEC) 40 mg, Oral, DAILY ondansetron (ZOFRAN) 4 mg, Oral, Q8HPRN sucralfate 1 gram tablet TAKE 1 TABLET BY MOUTH BEFORE MEALS AND AT BEDTIME vancomycin 250 mg capsule PLEASE SEE ATTACHED FOR DETAILED DIRECTIONS vit C/E/zinc ox/sonia/lut/zeax (ICAPS AREDS2 ORAL) Oral VITAMIN A ORAL 25,000 Units, Oral, DAILY Vitamin B-12 5,000 mcg, Sublingual, DAILY zinc sulfate (ZINC-220 ORAL) 1 tablet, Oral, DAILY HOSPITAL MEDICATIONS Scheduled meds: IV meds: PRN meds: [START ON 01/28/2024] aspirin, 81 mg, DAILY atorvastatin, 40 mg, QHS heparin (porcine) 5,000 units subcutaneous injection, 5,000 Units, Q12H levothyroxine, 125 mcg, QAM-0600 insulin lispro (human), , TID MEALS+HS Na CL 0.9% + KCL 20 mEq RTU niCARdipine (CARDENE) infusion nitroglycerin IV TITRATABLE infusion heparin, , PRN labetaloL, 10 mg, PRN - SEE INSTRUCTIONS labetaloL, 10 mg, [id number] lidocaine 1% (PF), , PRN NaCl 0.9% (NS), 5 mL, PRN - SEE INSTRUCTIONS niCARdipine (CARDENE) infusion, 2.5-15 mg/hr, TITRATE nitroglycerin IV TITRATABLE infusion, , CONTINUOUS PRN verapamiL, , PRN ALLERGY is allergic to morphine. REVIEW OF SYSTEMS As per HPI PHYSICAL EXAM BP (!) 188/91 | Pulse 64 | Temp 35.9 ?C (96.7 ?F) (Axillary) | Resp 16 | Wt 55.2 kg (121 lb 11.1 oz) | SpO2 99% | BMI 19.64 kg/m? Exam after CT abdomen and the significant improvement General: ill appearing. Dressed in hospital gowns. No apparent distress. Mental Status: Alert and oriented x4 (person, place, time, and situation). Consciousness, attention, concentration: normal, Stays focused and on task while being questioned. Language: intact to comprehension, fluency, repetition and naming. Fund of knowledge: is congruent with level of education. Remote and recent memory: normal. Cranial Nerves: I. Not tested. II. Symmetric, equally reactive pupils. Field of vision intact to confrontation in either of the four quadrants. III. IV., . Extraocular movements intact without nystagmus . V. Normal sensation bilaterally in V1-3 distributions. VII. No facial droop noted. VIII. Hearing intact to finger rubbing in either ear. IX., X. Palatal elevation normal symmetrically. XI. Normal strength of sternocleidomastoid and trapezius muscles bilaterally. XII. Tongue in midline. Motor system: Tone: normal Bulk: normal Strength Right Left Deltoid 5 5 Biceps 5 5 Triceps 5 5 Wrist extensors 5 5 Interossei 5 5 Hip flexors 5 5 Knee flexors (hamstring) 2 5 Knee extensors (quadriceps) 2 5 Ankle dorsiflexors 2 5 Ankle plantar flexors 2 5 RLE exam is limited due to pain. Deep Tendon Reflexes Right Left Biceps 2+ 2+ Triceps 2+ 2+ Brachioradialis 2+ 2+ Patella 2+ 2+ Achilles 1+ 1+ Pathologic reflexes and signs: Ankle clonus: absent Lama's sign: negative bilaterally. Plantar response: mute bilaterally Cerebellum: Negative: tremors, nystagmus, rapid alternating movements, ofsqxv-fn-vzah testing, xxeg-bm-ocsx testing Sensory system: Light touch: Intact Pinprick/temperature: Intact Joint position/vibration: Intact Pattern of sensory impairment: Intact Gait: Deferred. Ventilator Bundle: Ventilator Analgesia Mode Sedation + analgesia RR RASS FiO2 Pressors Pressors (last 24 hours) None PEEP SBT: Any additional Notes Vt SpO2 SpO2: 99 % Sedation / Paralyzation Sedation/Analgesia/Paralytics (last 24 hours) None Lines and Tubes (with dates): Patient Lines/Drains/Airways Status Active LDAs Name Placement date Placement time Site Days Peripheral IV 01/27/24 Inferior;Left;Proximal;Anterior Arm Inserted PRICK STITCHER 01/27/24 -- Arm less than 1 Peripheral IV 01/27/24 0113 Inferior;Left;Anterior Arm 01/27/24 0113 Arm less than 1 Urethral Catheter Single-lumen;Temperature probe 16 fr 01/27/24 0131 -- less than 1 Wound 10/25/23 1151 Skin tear Ankle Right;Lower Covered with dressing. Being treated by wound center at [facility]. 10/25/23 1151 Ankle 93 Current Meds: Scheduled meds: IV meds: PRN meds: [START ON 01/28/2024] aspirin, 81 mg, DAILY atorvastatin, 40 mg, QHS heparin (porcine) 5,000 units subcutaneous injection, 5,000 Units, Q12H levothyroxine, 125 mcg, QAM-0600 insulin lispro (human), , TID MEALS+HS Na CL 0.9% + KCL 20 mEq RTU niCARdipine (CARDENE) infusion nitroglycerin IV TITRATABLE infusion heparin, , PRN labetaloL, 10 mg, PRN - SEE INSTRUCTIONS labetaloL, 10 mg, [id number] lidocaine 1% (PF), , PRN NaCl 0.9% (NS), 5 mL, PRN - SEE INSTRUCTIONS niCARdipine (CARDENE) infusion, 2.5-15 mg/hr, TITRATE nitroglycerin IV TITRATABLE infusion, , CONTINUOUS PRN verapamiL, , PRN Intake/Output: No intake or output data in the 24 hours ending 01/27/24 0320 LABS Relevant labs: Labs (last 24 hours): Chemistry CBC LFTs Coags, other 132 (L) 101 14 148 (H) 9.22 10.3 (L) 294 AST: - ALT: - PT: 10.5 INR: 0.9 3.5 24 0.64 30.2 (L) AP: - T Hawk: - PTT: 30 eGFR: 91.2 Ca: 8.4 (L) % Bay: - Prot: - Alb: - Lact: 1.72 Mg: - PO4: - ANC: - Procal: - Stroke Cardiac A1C: - Date: - Trig: - Date: - pBNP: 3,160 (H) Date: 01/27/2024 LDL: - Date: - HDL: - Date: - Trop I: 0.014 Date: 01/27/[address] THORAX WO CONTRAST Result Date: 01/27/[address] evidence for acute trauma to the chest. There is an age indeterminate superior endplate compression fracture of T8, with 30% vertebral body height loss and no bony retropulsion. Cardiomegaly with prominent coronary arteriosclerosis and mitral valve calcification. Evidence for prior granulomatous disease. RL: 460 AF: [id number] ABDOMEN PELVIS WO CONTRAST Result Date: 01/27/2024 Acute subcapital fracture of the right femur, new compared to prior CT of 01/22/2024 Cardiomegaly with prominent mitral valve calcification. Status post cholecystectomy. Stable pneumobilia in the central liver. Stable diffuse dilatation of the main pancreatic duct. 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 Stable cystic focus in the right adnexa, measuring 5.2 cm. Dextroconvex scoliosis of the lumbar spine. RL: 460 AFC: [id number] X-ray chest 1 view Result Date: 01/27/2024 Impression: No acute cardiopulmonary finding. RL: 1825 End of Report [employer] Jazz Camargo is a 79 year old right handed woman with PMHX of htn who presented on 01/27/2024 with sudden onset aphasia and right sided weakness accompanied with a fall (LSN 01/27/2024 01/26/2024 ). NIHSS initially 15. CT head unremarkable, CTA head and neck left M1 occlusion examination was concerning for neck of femur fracture. Which was confirmed on imaging. Due to presentation with trauma and hip fracture, a scott CT was obtained was to rule out any internal bleeding. After rodriguez, decision was to give TNK and verbal consent was obtained from the however significant improvement was noted so we had to hold the TNK to reassess the NIHSS which was 3 due to right leg weakness due to pain limitation, however, after prolonged discussion with the patient and the family they wanted to proceed with the TNK, BP was persistently elevated even after labetalol. However, IR called for the patient before TNK administration and the family agreed to go to the angiogram without TNK given. DSA ws done and showed fully recanalized LMCA, and distal left M4 occlusion so no thrombectomy was done. 1. COMPUTER FORENSIC EXAMINER Left M1 MCA occlusion s/p thrombectomy Neurochecks Q1H Cardiac monitoring SBP 140-220 Load with ASA and Plavix Avoid hyperthermia, pain and constipation Fall precautions 2. CVS HYPERTENSION EKG:= Troponin: 0.014 SBP goal: 140-220 Hold BP meds and continue to monitor 3. Pulmonary No acute events 4. GI No acute events 5. Renal No acute events Daily electrolytes and BMP 6. Infectious No acute issues ABx: none Continue to monitor 7. Endocrine No acute issues Insulin Sliding Scale 8. MSK Neck of femur fracture Consulted ortho in the ED, will follow recommendations Stress ulcer prophylaxis: H2 imtiaz DVT prophylaxis: heparin Nutrition: NPO Diet. (Until bedside Dysphagia Screening passed by primary care physician, Neurologist (pager [phone]) or Nurse). Bowel Regimen: Miralax and Senakot S Dispo: TBD Prognosis: Guarded This case was seen and discussed with Dr. Casandra Joyce MD, Neurocritical Care Faculty LEEANN Howell PGY-3, Neurology department Associated attestation - Casandra Joyce MD - 01/27/2024 7:54 AM CDT I examined patient, reviewed records, and directed care at bedside. Patient is critically ill and requires neuroICU care due to acute ischemic stroke with L M1 occlusion with spontaneous resolution on angiogram. I reviewed Dr Dillard's documentation and I agree with the assessment and plan of care except as below. 1. Neuro: # Acute ischemic stroke Etiology: Undetermined. - Permissive hypertension. SBP < 220 - s/p ASA load on admission and on plavix. - Hold further ASA/Plavix in anticipation for surgery tomorrow. - Continue with Atorvastatin. - Pain control with PRN norco, tramadol. - Can clear C Collar. No c spine fx noted on initial CT. MSK R neck of femur fracture - Ortho following. Likely OR tomorrow. 2. Cardiac: # Bradycardia - Continue to monitor on telemetry. - Needs TTE Recent Labs 01/27/24 0037 TROPNI 0.014 3. Respiratory: # Acute hypoxia. # History of COPD - On 4 L NC - Duonebs. PH (no units) Date Value 04/08/2022 7.41 PCO2 (mmHg) Date Value 04/08/2022 45 PO2 (mmHg) Date Value 04/08/2022 215 (H) %O2HB (%) Date Value 04/08/2022 98.4 NA (mmol/L) Date Value 04/08/2022 135 K+ (mmol/L) Date Value 04/08/2022 2.7 (LL) AC CA IONZ (mg/dL) Date Value 04/08/2022 4.60 4. GI: Feeds : RADIOSONDE OPERATOR/swallow evaluation - followed by initiation of feeds. Bowl Regimen and prophylaxis: 5. ID: No acute issues. Temp (24hrs), Av.9 ?C (98.4 ?F), Min:35.9 ?C (96.7 ?F), Max:37.2 ?C (99 ?F) Recent Labs 07/12/23 0917 01/27/24 003 WBC 11.02 9.22 6. Mechanical DVT prophylaxis applied. Chemical DVT prophylaxis on board. 7. Heme: # Anemia likely 2/2 blood loss - Continue to monitor. Hemogram Recent Labs 01/27/2436 HGB 10.3* HCT 30.2* PLT 294 Coagulation Profile Recent Labs 01/27/2436 PTPAT 10.5 PTINR 0.9 APTTPAT 30 8. Renal: # Hyponatremia - Normal saline bolus x 1. Chemistry Recent Labs 01/27/2436 NA 132* K 3.5 CL 101 BUN 14 CREAT 0.64 GLU 148* No intake or output data in the 24 hours ending 01/27/24 0734 9. Endocrine: Euglycemia HGB A1C (%) Date Value 01/27/2024 5.0 10. Pressure ulcers/ skin / extremity injury noted: No 11. Patient updated. Code status full 12. ICU Checklist completed with addressing adequate measures. This patient has a high probability of sudden, clinically significant deterioration, which requires the highest level of physician preparedness to intervene urgently. I managed/supervised life or organ supporting interventions that required frequent physician assessment. I devoted my full attention in the ICU to the direct care of this patient for the period of time indicated above. I spent 30 minutes of critical care time addressing the patient's critical condition, evaluation and interpretation of records, laboratory values and imaging, developing a plan for management of care with the consultants involved in the care of this patient. Time I spent with family or surrogate(s) is included only if the patient was incapable of providing necessary information or participating in decision making. Time devoted to teaching and to any procedures I billed separately is not included. Casandra Joyce MD Neurocritical Care/Epilepsy Attending [facility] Department of Neurology PN-NEUROLOGY [facility] 2023-11-29 11:28:05 H&P Update H&P was reviewed and the patient was examined and there was no change in the patient's condition. T [facility] 2023-10-25 11:51:21 H&P Update H&P was reviewed and the patient was examined and there was no change in the patient's condition. [facility] 2023-07-12 10:01:15 Endoscopy H & P Age: [age] year old Sex: female ASA Class: 3 Indication: Gastric ulcer, EGD 04/05/23 with Gastritis, nodular mucosal with gastric ulcer (Stacia III) with mass effect having edematous heaped edges in the pre-pylori antrum which were bx, no results. Family history of GI malignancy: Brother with colon cancer; brother with rectal cancer. Antiplatelets/Anticoagulants: ASA 81 mg PO daily. Previous Endoscopy: EGD 04/07/23 Per report: Gastritis, nodular mucosal with gastric ulcer (Stacia III) with mass effect having edematous heaped edges in the pre-pylori antrum. No pathology EUS 10/2021 : - Normal esophagus. - Normal stomach. - Bilious gastric fluid. - Duodenal mass. Biopsied. - The ampulla was visualized. It was well circumscribed, enlarged, isoechoic. Distal portions of both the pancreatic and bile duct were thoroughly examined from the bulb and the second portion of duodenum. There was no intraductal infiltration seen Pathology: A. DUODENAL AMPULLA, BIOPSY: - TUBULOVILLOUS ADENOMA OF DUODENAL AMPULLA - DEEPER LEVELS EXAMINED, NO EVIDENCE OF MALIGNANCY IS IDENTIFIED B. DUODENUM, PERIPHERAL AMPULLA, BIOPSY: - TUBULOVILLOUS ADENOMA OF DUODENAL AMPULLA - DEEPER LEVELS EXAMINED, NO EVIDENCE OF MALIGNANCY IS IDENTIFIED ERCP 10/2021: - The major papilla appeared to have a mass. - The cystic duct and common bile duct were moderately dilated, acquired. - The patient has had a cholecystectomy. - One plastic biliary stent was placed into the cystic duct Past Medical History: Diagnosis Date Collagenous colitis HTN (hypertension) Current Facility-Administered Medications Medication Dose Route Frequency Last Rate Last Admin lactated ringers IV infusion 1,000 mL 1,000 mL IV Infusion ONCE Allergies Allergen Reactions Morphine Other - See comments Feel "Jittery and displaced" Social History Socioeconomic History Marital status: Occupational History Occupation: Retired Tobacco Use Smoking status: Former Packs/day: 1.00 Years: 40.00 Additional pack years: 0.00 Total pack years: 40.00 Types: Cigarettes Smokeless tobacco: Never Mental Status: alert, oriented x3 Chest: clear to auscultation Cardiovascular: regular rate and rhythm Abdomen: bowel sounds present Spleen Tip: non-palpable Hepatomegaly: no Mass: not present Tenderness: no Labs: CBC WBC (10*3/?L) Date Value 07/12/2023 11.02 RBC (10*6/?L) Date Value 07/12/2023 3.87 (L) PLT (10*3/?L) Date Value 07/12/2023 339 HGB (g/dL) Date Value 07/12/2023 11.0 (L) HCT (%) Date Value 07/12/2023 33.5 (L) BMP NA (mmol/L) Date Value 04/18/2022 129 (L) K (mmol/L) Date Value 04/18/2022 3.6 CALCIUM (mg/dL) Date Value 04/18/2022 7.6 (L) CL (mmol/L) Date Value 04/18/2022 99 BUN (mg/dL) Date Value 04/18/2022 10 CREATININE (mg/dL) Date Value 04/18/2022 0.85 GLUCOSE (mg/dL) Date Value 04/18/2022 102 CO2 TOTAL (mmol/L) Date Value 04/18/2022 24 Impression and Plan: The patient presents for EGD/EUS for evaluation of abdominal pain. EGD 04/05/23 with Gastritis, nodular mucosal with gastric ulcer (Stacia III) with mass effect having edematous heaped edges in the pre-pylori antrum which were bx, no results. Education provided to the patient about the procedure. Benefits, risks, alternatives, and likelihood of achieving patient's goals of care discussed. Risks discussed including but not limited to aspiration, infection, bleeding, perforation, missed polyps/lesions, failure to obtain a diagnosis, failure to complete the procedure, cardiovascular complications such as ID, stroke, arrhythmia, and . Informed consent obtained. Irina Torrez MD MPH PGY6 Gastroenterology and hepatology ESS STRIPPER Associated attestation - Christos eDnny MD - 07/12/2023 10:20 AM PROCESS STRIPPER I have evaluated the patient and discussed the history, examination findings and procedure plan with Dr Torrez. I agree with the above pre-op note. IM-GASTROENTEROLOG Y [facility] - Health Procedure Notes Date/Time Note Provider Source 2024-02-26 18:08:32 Procedure(s): MT DEBRIDEMENT MUSCLE &/FASCIA 1ST 20 SQ CM/< Pre-Procedure Diagnose(s): Bleeding from right hip wound, subsequent encounter Post-Procedure Diagnose(s): Bleeding from right hip wound, subsequent encounter Date of Surgery: 02/26/24 Pre op dx: Right hip persistent pinpoint bleeding at central incision intermittent bleeding possible deep hematoma Post op dx: Same Procedure: Right hip debridement skin subq muscle fascia CPT: 88586 Faculty Surgeon: Radha Lozano M.D. Please note that I was scrubbed for the critical portion of the case from time out until closure and was immediately available for the remainder of the case. Resident Surgeon: Solitario / Nishi EBL: Less than 150cc TT: none ANES: General Comp: none Findings: Pinpoint arteriole bleeder subcuticular central incision. [id number] area of proximal tissue necrosis subq/gluteus danielle. No sign of infection. Aspirate 3cc clear but blood tinged fluid hip joint deep. Disp: To pacu in stable condition Narrative Description of the Procedure... Patient was taken to the operating room underwent general endotracheal anesthesia. Antibiotics were held until after cultures were taken. Patient was placed in the right lateral decubitus position with the right hip point towards the ceiling using a beanbag positioner. All extremities well-padded throughout the case. Venousplaced on the contralateral extremity throughout the case. Right lower extremities and prepped and draped in usual sterile manner surgical pause was held. We then turned attention to surgery. The area of pinpoint blood extravasation was located approximately 3 mm in anterior to the midportion of the hip incision which appeared to be well-healed. 3. Be some necrotic tissue and/or a small hematoma in the proximal aspect of the hip just deep to the subcutaneous tissue on CT scan. We therefore utilized the prior well-healing incision along the length of the prior incision through skin and subcutaneous tissue down to fascia. There is approximately 5 x 5 cm area of necrotic subcutaneous tissue and superficial gluteus danielle muscle proximally which was debrided combination of scalpel rongeur curettes. No deep rents or dehiscence of the deep fascial layer was noted. The area that had prior bleeding was noted to immediately start bleeding again once we had cut through and excised approximately 6 to 7 mm of skin subcutaneous tissue along the circumference of the prior incision and scar. There is noted to be several prominent arterial subcuticular which appeared to be the source of her intermittent bleeding. These were cauterized without issue. The incision was then irrigated copiously with pulse electrolyte lavage. An 18-gauge needle was then used to aspirate synovial fluid from the hip joint by direct palpation of the needle tip on the metal prosthesis. 3 cc of bloody synovial fluid was removed and sent to the lab for culture. Hemostasis was then achieved meticulously. The fascia was rerun and oversewn with #2 Quill. The deep subcutaneous tissue was reapproximated 0 Vicryl plus in [id number] interrupted manner tacking it to the deep fascia closing down the space. Superficial subcutaneous tissue with 2-0 Vicryl plus and interrupted nylon for skin. Sterile dressing was applied. Patient was waken taken recovery stable condition. There were no complications. Post op plan: Keep right hip incision clean and dry. WBAT with assistance [facility] Please hold any blood thinner x 48 hours Iv ancef x 24 hours T [facility] 2024-02-26 16:51:25 Associated Order(s): Intubation Intubation Date/Time: 02/26/2024 4:29 PM Urgency: elective Airway not difficult General Information and Staff Patient location during procedure: OR Performed by: Sherry Powell MD Authorized by: Andrew Pizarro MD Indications and Patient Condition Indications for airway management: anesthesia Spontaneous ventilation: present Sedation level: deep Preoxygenated: yes Patient position: sniffing MILS maintained throughout Mask difficulty assessment: 1 - vent by mask Final Airway Details Final airway type: endotracheal airway Successful airway: ETT Cuffed: yes Successful intubation technique: direct laryngoscopy Facilitating devices/methods: intubating stylet Endotracheal tube insertion site: oral Blade: Hector Blade size: #3 ETT size (mm): 7.0 Cormack-Lehane Classification: grade I - full view of glottis Placement verified by: chest auscultation and capnometry Measured from: lips ETT to lips (cm): 21 Number of attempts at approach: 1 Ventilation between attempts: none Number of other approaches attempted: 0 Additional Comments Glottic opening visualized atraumatically. Lips, teeth, tongue, and gums remain in same condition as prior to intubation. Smooth, atraumatic, dentition and lips unchanged from pre-op. T AN-ANESTHESIOLOGY [facility] 2024-01-28 13:49:23 Associated Order(s): Intubation Intubation Date/Time: 01/28/2024 12:58 PM Urgency: elective Airway not difficult General Information and Staff Patient location during procedure: OR Performed: resident/BODY SPECIALIST Performed by: Jluis Barksdale MD Authorized by: Kalia Mosquera MD Indications and Patient Condition Indications for airway management: anesthesia and airway protection Spontaneous Ventilation: absent Sedation level: deep Preoxygenated: yes Patient position: sniffing Mask difficulty assessment: 2 - vent by mask + OA or adjuvant +/- NMBA Final Airway Details Final airway type: endotracheal airway Successful airway: ETT Cuffed: yes Successful intubation technique: direct laryngoscopy Facilitating devices/methods: intubating stylet Endotracheal tube insertion site: oral Blade: Hector Blade size: #3 ETT size (mm): 7.0 Cormack-Lehane Classification: grade I - full view of glottis Placement verified by: capnometry and palpation of cuff Cuff volume (mL): 8 Measured from: lips ETT to lips (cm): 22 Number of attempts at approach: 1 Additional Comments Smooth, atraumatic, dentition and lips unchanged from pre-op AN-ANESTHESIOLOGY [facility] 2024-01-28 13:48:21 Associated Order(s): Arterial Line Arterial Line Date/Time: 01/28/2024 1:25 PM Performed by: Jluis Barksdale MD Arterial Line Placement: Ultrasound-Guided: ultrasound guided Patient Location: OR Indication: continuous blood pressure monitoring and blood sampling needed Staff: Supervising Anesthesiologist: Kalia Mosquera MD Resident: Jluis Barksdale MD Procedure Detail: Catheter Size: 20 gauge Catheter Length: 1 and 3/4 inch Catheter Type: Angiocath Seldinger Technique?: Yes Laterality: Left Site: Radial artery Line Secured: Tegaderm and tape Preparation: Chloroprep Events: Events: Patient tolerated procedure well with no complications and all wires accounted for T [facility] 2024-01-28 13:23:52 Associated Order(s): Nerve Block Images from the original note were not included. Nerve Block Procedure: Other Peripheral Nerve (fascia illiac nerve block) Patient Location: OR Laterality: Right Surgical Anesthesia: Post Op Pain: Start Time: 01/28/2024 1:24 PM Post Op Pain Management requested by surgeon per surgical: Progress Note Anesthesiologist: Kalia Mosquera MD Resident/BODY SPECIALIST: Byron Mojica MDPerformed by: resident/BODY SPECIALIST Preanesthetic timeout completed prior to procedure: patient identified,IV checked, site marked, risks and benefits discussed, surgical consent, monitors and equipment checked, pre-op evaluation, timeout performed Patient Position: supine Sterile Prep/Drape: Yes Monitoring: continuous pulse ox, blood pressure and ECG Injection Technique: single-shot Needle Type: Stimuplex Needle Gauge: 22 G Needle Length: 4.0 Number of Attempts: 1 Technique: Ultrasound guided, Negative aspiration and Intermittent aspiration during injection Sensory Effect: Unable to assess Medications Given: Regional: Bupiv 0.25% 50 mL EPI 1:100 AN-ANESTHESIOLOGY [facility] Notes Date/Time Note Provider Source 2024-03-01 15:39:59 Problem: Falls, Risk of Goal: Absence of falls 03/01/2024 1539 by Maximo Florez RN Outcome: Adequate for discharge 03/01/2024 1352 by Maximo Florez RN Outcome: Adequate for discharge Problem: Discharge Planning Goal: Adequate for discharge 03/01/2024 1539 by Maximo Florez RN Outcome: Adequate for discharge 03/01/2024 1352 by Maximo Florez RN Outcome: Adequate for discharge Goal: Effective communication 03/01/2024 1539 by Maximo Florez RN Outcome: Adequate for discharge 03/01/2024 1352 by Maximo Florez RN Outcome: Adequate for discharge Problem: Pain Goal: Control of pain at or below patient's documented comfort goal 03/01/2024 1539 by Maximo Florez RN Outcome: Adequate for discharge 03/01/2024 1352 by Maximo Florez RN Outcome: Adequate for discharge Goal: Reduction in pain sensation 03/01/2024 1539 by Maximo Florez RN Outcome: Adequate for discharge 03/01/2024 1352 by Maximo Florez RN Outcome: Adequate for discharge Problem: Bleeding, Risk of Goal: Absence of impaired coagulation signs and symptoms 03/01/2024 1539 by Maximo Florez RN Outcome: Adequate for discharge 03/01/2024 1352 by Maximo Florez RN Outcome: Adequate for discharge Goal: Absence of active bleeding 03/01/2024 1539 by Maximo Florez RN Outcome: Adequate for discharge 03/01/2024 1352 by Maximo Florez RN Outcome: Adequate for discharge Problem: Mobility - Impaired Goal: Able to achieve maximum mobility level 03/01/2024 1539 by Maximo Florez RN Outcome: Adequate for discharge 03/01/2024 1352 by Maximo Florez RN Outcome: Adequate for discharge Maximo Florez RN [facility] 2024-03-01 13:52:24 Problem: Falls, Risk of Goal: Absence of falls Outcome: Adequate for discharge Problem: Discharge Planning Goal: Adequate for discharge Outcome: Adequate for discharge Goal: Effective communication Outcome: Adequate for discharge Problem: Pain Goal: Control of pain at or below patient's documented comfort goal Outcome: Adequate for discharge Goal: Reduction in pain sensation Outcome: Adequate for discharge Problem: Bleeding, Risk of Goal: Absence of impaired coagulation signs and symptoms Outcome: Adequate for discharge Goal: Absence of active bleeding Outcome: Adequate for discharge Problem: Mobility - Impaired Goal: Able to achieve maximum mobility level Outcome: Adequate for discharge [facility] 2024-02-29 21:07:42 Problem: Falls, Risk of Goal: Absence of falls Outcome: Progressing as expected Problem: Discharge Planning Goal: Adequate for discharge Outcome: Progressing as expected Goal: Effective communication Outcome: Progressing as expected Problem: Pain Goal: Control of pain at or below patient's documented comfort goal Outcome: Progressing as expected Goal: Reduction in pain sensation Outcome: Progressing as expected Problem: Bleeding, Risk of Goal: Absence of impaired coagulation signs and symptoms Outcome: Progressing as expected Goal: Absence of active bleeding Outcome: Progressing as expected Problem: Mobility - Impaired Goal: Able to achieve maximum mobility level Outcome: Progressing as expected T Lary Lopez RN [facility] 2024-02-29 20:11:09 Problem: Falls, Risk of Goal: Absence of falls Outcome: Progressing as expected Problem: Discharge Planning Goal: Adequate for discharge Outcome: Progressing as expected Goal: Effective communication Outcome: Progressing as expected Problem: Pain Goal: Control of pain at or below patient's documented comfort goal Outcome: Progressing as expected Goal: Reduction in pain sensation Outcome: Progressing as expected Problem: Bleeding, Risk of Goal: Absence of impaired coagulation signs and symptoms Outcome: Progressing as expected Goal: Absence of active bleeding Outcome: Progressing as expected Problem: Mobility - Impaired Goal: Able to achieve maximum mobility level Outcome: Progressing as expected [facility] 2024-02-29 00:10:02 Problem: Falls, Risk of Goal: Absence of falls Outcome: Progressing as expected Problem: Discharge Planning Goal: Adequate for discharge Outcome: Progressing as expected Goal: Effective communication Outcome: Progressing as expected Problem: Pain Goal: Control of pain at or below patient's documented comfort goal Outcome: Progressing as expected Goal: Reduction in pain sensation Outcome: Progressing as expected Problem: Bleeding, Risk of Goal: Absence of impaired coagulation signs and symptoms Outcome: Progressing as expected Goal: Absence of active bleeding Outcome: Progressing as expected Problem: Mobility - Impaired Goal: Able to achieve maximum mobility level Outcome: Progressing as expected [facility] hospital 2024-02-28 15:23:58 Problem: Falls, Risk of Goal: Absence of falls Outcome: Progressing as expected Problem: Discharge Planning Goal: Adequate for discharge Outcome: Progressing as expected Goal: Effective communication Outcome: Progressing as expected Problem: Pain Goal: Control of pain at or below patient's documented comfort goal Outcome: Progressing as expected Goal: Reduction in pain sensation Outcome: Progressing as expected Problem: Bleeding, Risk of Goal: Absence of impaired coagulation signs and symptoms Outcome: Progressing as expected Goal: Absence of active bleeding Outcome: Progressing as expected Problem: Mobility - Impaired Goal: Able to achieve maximum mobility level Outcome: Progressing as expected Jael Leong RN [facility] 2024-02-28 11:24:50 Jazz Camargo is a 79 year old woman with atrial fibrillation, HFmrEF, CVA 01/2024), HTN, hx collagenous colitis, hypothyroidism, GERD, 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 Patient was recently admitted for proximal femoral fracture following CVA. She was discharged on eliquis with thoughts that stroke was cardio embolic and now returned with surgical site bleed. In the ED VSS, afebrile, HGB7.8. HGB dropped overnight after admission to 6.4 and she was transfused 1 unit pRBCs. Site continued to bleed and ortho recommended CTA of the hip. Ortho OR w/ pinpoint arteriole bleed w/ debridement. Patient without signs of further active bleeding. Naveed Israel [facility] 2024-02-27 23:13:05 Problem: Falls, Risk of Goal: Absence of falls Outcome: Progressing as expected Problem: Discharge Planning Goal: Adequate for discharge Outcome: Progressing as expected Goal: Effective communication Outcome: Progressing as expected Problem: Pain Goal: Control of pain at or below patient's documented comfort goal Outcome: Progressing as expected Goal: Reduction in pain sensation Outcome: Progressing as expected Problem: Bleeding, Risk of Goal: Absence of impaired coagulation signs and symptoms Outcome: Progressing as expected Goal: Absence of active bleeding Outcome: Progressing as expected Problem: Mobility - Impaired Goal: Able to achieve maximum mobility level Outcome: Progressing as expected [facility] 2024-02-27 19:25:48 Problem: Falls, Risk of Goal: Absence of falls 02/27/20241924 by Gregory Rivas RN Outcome: Progressing as expected 02/27/20241912 by Gregory Rivas RN Outcome: Progressing as expected Problem: Discharge Planning Goal: Adequate for discharge 02/27/20241924 by Gregory Rivas RN Outcome: Progressing as expected 02/27/20241912 by Gregory Rivas RN Outcome: Progressing as expected Goal: Effective communication 02/27/20241924 by Gregory Rivas RN Outcome: Progressing as expected 02/27/20241912 by Gregory Rivas RN Outcome: Progressing as expected Problem: Pain Goal: Control of pain at or below patient's documented comfort goal 02/27/20241924 by Gregory Rivas RN Outcome: Progressing as expected 02/27/20241912 by Gregory Rivas RN Outcome: Progressing as expected Goal: Reduction in pain sensation 02/27/20241924 by Gregory Rivas RN Outcome: Progressing as expected 02/27/20241912 by Gregory Rivas RN Outcome: Progressing as expected Problem: Bleeding, Risk of Goal: Absence of impaired coagulation signs and symptoms 02/27/20241924 by Gregory Rivas RN Outcome: Progressing as expected 02/27/20241912 by Gregory Rivas RN Outcome: Progressing as expected Goal: Absence of active bleeding 02/27/20241924 by Gregory Rivas RN Outcome: Progressing as expected 02/27/20241912 by Gregory Rivas RN Outcome: Progressing as expected Problem: Mobility - Impaired Goal: Able to achieve maximum mobility level 02/27/20241924 by Gregory Rivas RN Outcome: Progressing as expected 02/27/20241912 by Gregory Rivas RN Outcome: Progressing as expected Problem: Falls, Risk of Goal: Absence of falls 02/27/20241924 by Gregory Rivas RN Outcome: Progressing as expected 02/27/20241912 by Gregory Rivas RN Outcome: Progressing as expected Problem: Discharge Planning Goal: Adequate for discharge 02/27/20241924 by Gregory Rivas RN Outcome: Progressing as expected 02/27/20241912 by Gregory Rivas RN Outcome: Progressing as expected Goal: Effective communication 02/27/20241924 by Gregory Rivas RN Outcome: Progressing as expected 02/27/20241912 by Gregory Rivas RN Outcome: Progressing as expected Problem: Pain Goal: Control of pain at or below patient's documented comfort goal 02/27/20241924 by Gregory Rivas RN Outcome: Progressing as expected 02/27/20241912 by Gregory Rivas RN Outcome: Progressing as expected Goal: Reduction in pain sensation 02/27/20241924 by Gregory Rivas RN Outcome: Progressing as expected 02/27/20241912 by Gregory Rivas RN Outcome: Progressing as expected Problem: Bleeding, Risk of Goal: Absence of impaired coagulation signs and symptoms 02/27/20241924 by Gregory Rivas RN Outcome: Progressing as expected 02/27/20241912 by Gregory Rivas RN Outcome: Progressing as expected Goal: Absence of active bleeding 02/27/20241924 by Gregory Rivas RN Outcome: Progressing as expected 02/27/20241912 by Gregory Rivas RN Outcome: Progressing as expected Problem: Mobility - Impaired Goal: Able to achieve maximum mobility level 02/27/20241924 by Gregory Rivas RN Outcome: Progressing as expected 02/27/20241912 by Gregory Rivas RN Outcome: Progressing as expected Gregory Rivas RN [facility] 2024-02-27 19:14:04 Problem: Falls, Risk of Goal: Absence of falls Outcome: Progressing as expected Problem: Discharge Planning Goal: Adequate for discharge Outcome: Progressing as expected Goal: Effective communication Outcome: Progressing as expected Problem: Pain Goal: Control of pain at or below patient's documented comfort goal Outcome: Progressing as expected Goal: Reduction in pain sensation Outcome: Progressing as expected Problem: Bleeding, Risk of Goal: Absence of impaired coagulation signs and symptoms Outcome: Progressing as expected Goal: Absence of active bleeding Outcome: Progressing as expected Problem: Mobility - Impaired Goal: Able to achieve maximum mobility level Outcome: Progressing as expected Critical [facility] hospital 2024-02-26 23:35:37 Problem: Falls, Risk of Goal: Absence of falls Outcome: Progressing as expected Problem: Discharge Planning Goal: Adequate for discharge Outcome: Progressing as expected Goal: Effective communication Outcome: Progressing as expected Problem: Pain Goal: Control of pain at or below patient's documented comfort goal Outcome: Progressing as expected Goal: Reduction in pain sensation Outcome: Progressing as expected Problem: Bleeding, Risk of Goal: Absence of impaired coagulation signs and symptoms Outcome: Progressing as expected Goal: Absence of active bleeding Outcome: Progressing as expected Problem: Mobility - Impaired Goal: Able to achieve maximum mobility level Outcome: Progressing as expected [facility] hospital 2024-02-26 21:45:46 Addendum created 02/26/242144 by Andrew Pizarro MD Intraprocedure Staff edited Critical access hospital 2024-02-26 20:30:00 Summary: Missing Dentures At shift change, pt's daughter approached this author and informed her that her mom's dentures were no longer on the table where it was. Daughter said, the dentures had been there since pt went to PACU for her procedure. Daughter said she stepped out of the room around 4 p.m. to visit her step dad. When she returned, the room had been cleaned and stuff rearranged. That is when she noticed the dentures and the denture cap were missing. This author and other nurses looked in the drawers, bathroom and underneath spaces in the room. Dinner trays already packed in the cabinet were also searched but the dentures were nowhere to be found. COA was informed about the situation via text. COA came by to talk to pt's daughter but they were both sleeping. COA suggested the Horse W[employer]ler be informed of this situation in the morning. Dilia Hassan RN [facility] 2024-02-26 18:52:46 Patient: Jazz Camargo Procedure Summary Date: 02/26/24 Room / Location: [address] Anesthesia Start: 1605 Anesthesia Stop: 1829 Procedure: HIP DEBRIDEMENT (Right: Leg) Diagnosis: Bleeding (Bleeding [R58]) Surgeons: Radha Lozano MD Responsible Provider: Andrew Pizarro MD Anesthesia Type: General ASA Status: 3 Anesthesia Type: General Last vitals BP (!) 168/87 (02/26/241829) Temp 37 ?C (98.6 ?F) (02/26/241823) Pulse 76 (02/26/241829) Resp 12 (02/26/241829) SpO2 98 % (02/26/241829) There were no known notable events for this encounter. Anesthesia Post Evaluation Patient location during evaluation: bedside Patient participation: complete - patient participated Level of consciousness: awake Pain management: adequate Airway patency: patent Cardiovascular status: acceptable and blood pressure returned to baseline Respiratory status: acceptable Hydration status: acceptable AN-ANESTHESIOLOGY ANESTHESIOLOGIST [facility] 2024-02-26 18:28:06 Problem: Falls, Risk of Goal: Absence of falls Outcome: Progressing as expected Problem: Discharge Planning Goal: Adequate for discharge Outcome: Progressing as expected Goal: Effective communication Outcome: Progressing as expected Problem: Pain Goal: Control of pain at or below patient's documented comfort goal Outcome: Progressing as expected Goal: Reduction in pain sensation Outcome: Progressing as expected Problem: Bleeding, Risk of Goal: Absence of impaired coagulation signs and symptoms Outcome: Progressing as expected Goal: Absence of active bleeding Outcome: Progressing as expected Problem: Mobility - Impaired Goal: Able to achieve maximum mobility level Outcome: Progressing as expected [facility] 2024-02-26 17:00:00 BRIEF OPERATIVE NOTE Date of Surgery: 02/26/2024 Surgeons and Role: * Radha Lozano MD - Primary * Emmanuel Jerez MD - Resident - Assisting * Tarik Almodovar MD - Resident - Assisting Pre-Op Diagnosis: Bleeding [R58] Post-Op Diagnosis Codes: * Bleeding [R58] Procedures: Procedure(s) (LRB): HIP DEBRIDEMENT (Right) CPT: 59145 Any Complications Encounters: None Estimated Blood Loss: < 50 cc Specimens Removed: ID Type Source Tests Collected by Time Destination A : Right hip superficial Wound HIP, RIGHT AFB CULTURE, FUNGUS (ROUTINE) CULTURE Radha Lozano MD 02/26/2024 1707 B : Aspirate Right HIp Aspirate HIP, RIGHT AFB CULTURE, FUNGUS (ROUTINE) CULTURE Radha Lozano MD 02/26/2024 1715 * No implants in log * Patient's Condition: Good, stable Findings: Small focus of necrotic subcutaneous tissue superficial to the fascia with associated hematoma. Small amount of non-purulent/serosanguinous right hip aspirate. Any other important information: none Please see dictated operative report for additional detail. [facility] 2024-02-26 00:59:22 Problem: Falls, Risk of Goal: Absence of falls Outcome: Progressing as expected Problem: Discharge Planning Goal: Adequate for discharge Outcome: Progressing as expected Goal: Effective communication Outcome: Progressing as expected Problem: Pain Goal: Control of pain at or below patient's documented comfort goal Outcome: Progressing as expected Goal: Reduction in pain sensation Outcome: Progressing as expected Problem: Bleeding, Risk of Goal: Absence of impaired coagulation signs and symptoms Outcome: Progressing as expected Goal: Absence of active bleeding Outcome: Progressing as expected Problem: Mobility - Impaired Goal: Able to achieve maximum mobility level Outcome: Progressing as expected Critical access hospital 2024-02-25 17:42:33 Name/ MRN / Age / Gender: Jazz Camargo, [id number] 79 year old female BMI: Estimated body mass index is 17.47 kg/m? as calculated from the following: Height as of this encounter: 1.651 m (5' 5"). Weight as of this encounter: 47.6 kg (105 lb). Allergies: Morphine Last Vitals: BP Readings from Last 1 Encounters: 02/25/24 124/55 Pulse Readings from Last 1 Encounters: 02/25/24 59 SpO2 Readings from Last 1 Encounters: 02/25/24 93% Date of Surgery: 02/26/2024 Surgeon: Radha Lozano MD Procedure: HIP DEBRIDEMENT (Right: Leg) EVACUATION HEMATOMA HIP (Right) OR Location: [facility] Anesthesia Preop Eval (physical exam) Copied forward and updated from: 01/28/24 Anesthesia Preop: Chart Review and [id number] Communication: PRODUCTION COUNTER PREOPERATIVE EVALUATION Prior to the start of anesthesia care, the patient was examined and the preoperative evaluation was reviewed. Consent was signed. Risks of the anesthetic were discussed in detail. Also d/w patient and her daughter in holding: patient agrees to intubation for the procedure--she understands that the DNR/DNI needs to be held in order for the procedure to occur. Her daughter is aware of her wishes. I explained the following: if she has bleeding, ID, CVA, or life-threatening condition during the surgery, then we will keep her intubated. The daughter will decide DNR status at that time. Patient agrees. Plan T&C pRBC due to preop anemia. Also of note: the patient has developed severe, chronic pain; this is alleviated only slightly with [place]. Morphine is listed as an allergy; however, she states it only makes her "loopy". [place] 5/325 given in holding by in--scanned into AUG. Freddy Seay MD 79F with PMH HTN, afib, hypothyroidism, gastritics, s/p right hip hemiarthroplasty 01/28/24 c/b suspected postoperative hematoma/post surgical bleeding requiring multiple transfusions PONV Risk Factors: female Anesthesia History Anesthesia History Negative Comments: 01/27/24 IR ANGIOGRAM CEREBRAL Julian Caicedo MD 3E 11/29/23 PHACOEMULSIFICATION OF CATARACT WITH INTRAOCULAR LENS IMPLANT (Right: Eye) Melva Torrez S, DO 10/25/23 PHACOEMULSIFICATION OF CATARACT WITH INTRAOCULAR LENS IMPLANT (Left: Eye) Belen Loredo MD 07/12/23 UPPER ULTRASOUND (Abdomen); ESOPHAGOGASTRODUODENOSCOPY (Mouth) Pantera Springer MD 04/08/22 EXCISION HEPATOPANCREATIC AMPULLA (Abdomen) Galo Dc MD 3 03/03/22 PROCEDURE ABORTED (Abdomen) Alyson Franklin MD Case cancelled in OR, Hypertension 3 02/21/22 ENDOSCOPIC RETROGRADE CHOLANGIOPANCRETOGRAPHY (Esophagus) Pantera Springer MD 3 12/22/21 ENDOSCOPIC RETROGRADE CHOLANGIOPANCRETOGRAPHY (canceled) 3 11/19/21 ESOPHAGOGASTRODUODENOSCOPY (Mouth); UPPER ULTRASOUND (Mouth) Pantera Springer MD 3 (-) Hx of anesthetic complications (-) Hx of PONV (-) Hx of malignant hyperthermia (-) Pt reports no hx of difficult airway Previous Anesthetics/Airways Date of anesthetic: 04/08/2022 DL x: 1 Grade View: I ETT size: 7.0 Blade used: MAC4 Cardiovascular Comments: No additional cardiology results in [facility] as of 01/27/24 BP Readings from Last 4 Encounters: 01/27/24 : (!) 188/91 01/18/24 : (!) 144/80 01/02/24 : (!) 158/78 11/29/23 : (!) 176/93 TTE 01/27/24 Interpretation Summary ? Left Ventricle: Left ventricle size is normal. Mildly increased wall thickness. Mild global hypokinesis present. Mildly reduced systolic function with a visually estimated EF of 40 - 45%. There is grade 1 diastolic dysfunction. GLS is reduced at -10% ? Right Ventricle: Right ventricle size is normal. Normal systolic function. RVFWLS is -27% ? Left Atrium: Left atrium is severely dilated. Left atrium volume index is 69.7 mL/m2. LA Strain is 12% Small ammount of bubbles crossing within 5 beats suggestive of small cardiac shunt. ? Aorta: Mildly enlarged annulus, measures 3.5 cm and index 2.1 cm/m2 ? Pericardium: Small pericardial effusion present. Addendum-March 30, 2022-nuclear stress test showed no reversible ischemia. Echocardiogram showed normal ejection fraction. Low to intermediate cardiac risk. 03/29/2022 Exercise Stress Test ECG INTERPRETATION: 1. RESTING ECG: Normal Sinus Rhythm IRBBB 2. PHARMACOLOGIC\\STRESS ECG: Normal Sinus Rhythm IRBBB 3. ARRHYTHMIA: none 4. COMMENTS: Lexiscan protocol SUMMARY: SYMPTOMS - No clinical symptoms suggesting ischemia. HEMODYNAMIC RESPONSE - Normal STRESS ECG - Negative for ischemia 03/24/2022 TTE ? Left Ventricle: Left ventricle size is normal. Normal wall thickness. Normal wall motion. Normal systolic function with a visually estimated EF of 55 - 60%. Average Global strain: -15.4%. There is impaired relaxation. ? Right Ventricle: Normal systolic function. ? Tricuspid Valve: Trace transvalvular regurgitation. Insufficient regurgant jet to estimate RVSP. RA pressure is 0-5 mmHg. ? Left Atrium: Left atrium is mildly dilated. ? Aortic Valve: Trace transvalvular regurgitation. ? Aorta: Borderline enlarged ascending aorta 3.18cm. 03/11/2022 Cardiology OV for preop cardiac eval 2 episodes of atypical chest pain, non exertional. Uncontrolled bp. Send for echo and lexiscan. 03/03/2022 EKG HR 56 Sinus bradycardia Left axis deviation Incomplete right bundle branch block Nonspecific ST abnormality Abnormal ECG (-) Chest pain with 1-2 flights of stairs (+) Hypertension and poorly controlled (+) Hx of cardiac stress test (-) Hx of cardiac cath (-) Angina/Chest Pain Within Last Year (-) Patient does not report prior ID (-) CAD (-) Valvular problems/murmurs (-) Dysrhythmias (-) Pt reports prior cardiac surgery (-) No cardiovascular devices present (-) CHF Pulmonary (-) Patient does not report snoring or stopping breathing during sleep (-) Home O2 (-) COPD (-) Asthma (+) Tobacco use (+) Cigarette use (-) Recent bronchitis or URI Neuro/Musculoskeletal Negative Neuro/Musculosketal ROS (-) CVA(-) Seizures (-) Neuromuscular Disease GI/Hepatic Comments: Hx of: Gastric ulcer, stacia class III, w/ mass effect; 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 Requesting adhesive remover and limited tape. 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 Hold on DOS. Phentermine: Alert [facility] anesthesiologist SGLT2 Inhibitors: "gliflozins" to be held for 3 days prior to elective surgeries GLP1 Agonosit: stop 7 days prior to surgery MAC Cases: Continue taking SILVIO inhibitors and ARBs ASA Classification ASA: 3 ASA Comments: Patient Active Problem List: Colitis Ampullary adenoma Ampulla of Vater mass Gastric ulcer without hemorrhage or perforation, unspecified chronicity Dilation of biliary tract Left acute arterial ischemic stroke, MCA (middle cerebral artery) Cerebrovascular accident (CVA), unspecified mechanism Closed displaced fracture of right femoral neck Labs: Chemistry 02/25/2024 CBC 02/25/2024 130 (L) 99 18 90 9.42 7.9 (L) 225 3.3 (L) 25 0.77 23.7 (L) eGFR: 79.6 Date: 02/25/2024 ANC: 7.29 (H) Date: 02/25/2024 LFTs 02/24/2024 Coags AST: 20 AP: 81 Prot: 4.9 (L) Ca: 8.0 (L) PT: 15.9 (H) Date: 02/24/2024 ALT: 13 T Hawk: 0.4 Alb: 2.6 (L) PTT: 31 Date: 02/01/2024 PO4: - Date: - INR: 1.4 Date: 02/24/2024 Cardiac Endocrine & other pBNP: 3,160 (H) Date: 01/27/2024 A1C: 5.0 Date: 01/27/2024 Trop I: 0.014 Date: 01/27/2024 POCT A1C: - Date: - CK: - Date: - TSH: - Date: - CKMB: - Date: - FT4: - Date: - LDL: 33 Date: 01/27/2024 Lact: 1.72 Date: 01/27/2024 Procal: - Date: - Respiratory 7.36|44|187 (H)|24|98.3 D-dimer: - ABG Date: 01/28/2024 Date: - Miscellaneous Type and Screen: O Positive Antibody: Negative Date: 02/24/2024 POCT : - Date: - Current Medications: Outpatient Medications Marked as Taking for the 02/24/24 encounter (Hospital Encounter) Medication Sig Dispense Refill aspirin 325 mg tablet Take 1 tablet by mouth in the morning. Previous Surgeries: Past Surgical History: Procedure Laterality Date APPENDECTOMY ENDOSCOPIC RETROGRADE CHOLANGIOPANCRETOGRAPHY N/A 02/21/2022 Surgeon: Christos Denny MD; Location: [facility] ([facility]) OR LOCATION ESOPHAGOGASTRODUODENOSCOPY N/A 11/19/2021 Surgeon: Abiodun Shah MD; Location: [facility]OS[facility] ([facility]) OR LOCATION ESOPHAGOGASTRODUODENOSCOPY N/A 07/12/2023 Surgeon: Christos Denny MD; Location: [facility]OSCOPY ([facility]) OR LOCATION EXCISION HEPATOPANCREATIC AMPULLA (SHX) N/A 04/08/2022 Surgeon: Erasmo Tovar MD; Location: [facility] OR LOCATION HIP HEMIARTHROPLASTY Right 01/28/2024 Surgeon: Radha Lozano MD; Location: [facility] OR LOCATION PHACOEMULSIFICATION OF CATARACT WITH INTRAOCULAR LENS IMPLANT Left 10/25/2023 Surgeon: Rajiv Rudolph MD; Location: [facility] OR LOCATION PHACOEMULSIFICATION OF CATARACT WITH INTRAOCULAR LENS IMPLANT Right 11/29/2023 Surgeon: Rajiv Rudolph MD; Location: [facility] OR LOCATION UPPER ULTRASOUND (SHX) N/A 11/19/2021 Surgeon: Abiodun Shah MD; Location: ENDOSCOPY ([facility]) OR LOCATION UPPER ULTRASOUND (SHX) N/A 07/12/2023 Surgeon: Christos Denny MD; Location: ENDOSCOPY ([facility]) OR LOCATION Anesthesia Physical Exam General alert and oriented x 3 Neuro/Psych nonfocal Dental upper dentures and lower dentures Abdominal (+) abdomen soft Airway Mallampati score:II Neck ROM: full Mouth opening:normal Extremity Pulmonary bilateral clear to auscultation Other Cardiovascular Rhythm:regular Rate: normal Anesthesia Plan ASA Status: 3 Plan discussed during pre-op evaluation: General Anesthetic plan on DOS: General Plan to include: IV induction Anesthesia plan discussed with: patient or environmental marketing representative Post-Operative Analgesia: routine analgesia & antiemetics and nerve block for post-op analgesia Recovery Plan: PACU Additional comments: AN-ANESTHESIOLOGY ANESTHESIOLOGIST [facility] 2024-02-25 13:40:58 Problem: Falls, Risk of Goal: Absence of falls Outcome: Progressing as expected Problem: Discharge Planning Goal: Adequate for discharge Outcome: Progressing as expected Goal: Effective communication Outcome: Progressing as expected Problem: Pain Goal: Control of pain at or below patient's documented comfort goal Outcome: Progressing as expected Goal: Reduction in pain sensation Outcome: Progressing as expected Problem: Bleeding, Risk of Goal: Absence of impaired coagulation signs and symptoms Outcome: Progressing as expected Goal: Absence of active bleeding Outcome: Progressing as expected Problem: Mobility - Impaired Goal: Able to achieve maximum mobility level Outcome: Progressing as expected [facility] 2024-02-25 01:43:53 Problem: Falls, Risk of Goal: Absence of falls Outcome: Progressing as expected Problem: Discharge Planning Goal: Adequate for discharge Outcome: Progressing as expected Goal: Effective communication Outcome: Progressing as expected Problem: Pain Goal: Control of pain at or below patient's documented comfort goal Outcome: Progressing as expected Goal: Reduction in pain sensation Outcome: Progressing as expected Problem: Bleeding, Risk of Goal: Absence of impaired coagulation signs and symptoms Outcome: Progressing as expected Goal: Absence of active bleeding Outcome: Progressing as expected Problem: Mobility - Impaired Goal: Able to achieve maximum mobility level Outcome: Progressing as expected Milton Duval RN [facility] 2024-02-24 21:22:51 Pt report to Jace FERNANDEZ Boni Mendieta RN [facility] 2024-02-24 20:30:14 Pt arrived back from imaging. T Ana Rosa Samaniego RN [facility] 2024-02-24 20:21:[address] via stretcher with [facility] transport. Patient aaox4, breathing even/unlabored, in NAD. Patient stable for transport at this time. [facility] 2024-02-24 18:47:12 Ortho at bedside. Jacky removed by ortho resident. Patient noted to have small amount of bleeding from incision. Patient linens changed at this time. Will continue to monitor T [facility] 2024-02-24 17:43:28 Joleen Roverto Child [phone] Patient's daughter would like to be updated on plan of care/any changes. Isabella Kerr RN [facility] 2024-02-24 17:19:25 Jazz Camargo is a 79 year old female presenting to ED with c/o bleeding from incision site. Patient reports had femur fx and had surgery on 01/27. Patient reports that she has been having intermittent bleeding to the site over the last 3 weeks. Patient reports that she has not been evaluated by ortho, patient has only had dressings placed to stop the bleeding. Patient was sent to ED today due to significant bleeding from site. Report from facility stated that they saturated one dressing and then a new one was placed prior to patient being transported out. Patient arrived to ED with dressing noted to be saturated in blood. New dressing placed and active bleeding noted to site. Rac[place] remain in place to R leg. Patient appears pale. VSS. Respirations even and unlabored. Lung sounds clear bilaterally. Bowel sounds normoactive in all 4 quadrants. Bed locked and in lowest position with call sosa within reach. [facility] 2024-02-24 16:55:01 Jazz Camargo is a 79 year old female presenting to ED via [facility] coming from [facility] due to bleeding from incision site. Patient had femur fx and had sx on 01/28/24. Nurse from facility reported that bleeding started today and dressing was placed after bleeding was noticed. Patient noted to have dressing to incision site to R leg that appears saturated with blood and blood noted to be on blankets. Patient reports bleeding has been intermittent over the last 2 weeks. Patient to room for further eval Maria Teresa Zhou RN [facility] 2024-02-24 16:53:00 [facility] Emergency Department Note Patient Name: Jazz Camargo Date of : 1945 79 year old female Treatment Room: [address] [place] [address] Primary Care Physician: Kale Simmons Patient Escorted by: Self [9] Mode of Arrival: EMS - [place] [39] EMS Treatment Prior to ED Arrival: [facility] treatment: None Travel and Exposure Screening: Symptoms Does patient have any of these symptoms?: (not recorded) Exposure Screening Has patient had contact with someone with a communicable disease in the last month?: (not recorded) Diseases exposed to:: (not recorded) Is Patient ?: (not recorded) Exposure Date: (not recorded) Chief Complaint: Chief Complaint Patient presents with Bleeding/Bruising History of Present Illness: Jazz Camargo is a 79-year-old F with PMH of stroke and hip fracture s/p hip replacement presenting with 3 week history of bleeding. Patient had a stroke 3 weeks ago, leading to a fall and fracture of the right hip. Patient was started on Eliquis for stroke and had hip replaced with Ortho at [facility]. Patient now has continued 7/10 hip pain as well as continued bleeding from incision site since the surgery. Patient has been experiencing headache and fatigue, but denies chest pain, SOB, or worsened stroke symptoms. Past Medical History/Immunizations: Past Medical History: Diagnosis Date Collagenous colitis HTN (hypertension) Tetanus received in last 5 years: Unknown Childhood immunizations: Up-to-date Allergies: Allergies Allergen Reactions Morphine Other - See comments Feel "Jittery and displaced" Past Social History: Tobacco Use Every Day; 0.5 packs/day; Smoked an average of 0.5 packs/day for 60.0 years; Types: Cigarettes Smokeless Tobacco: Never used smokeless tobacco. Past Surgical History: Past Surgical History: Procedure Laterality Date APPENDECTOMY ENDOSCOPIC RETROGRADE CHOLANGIOPANCRETOGRAPHY N/A 02/21/2022 Surgeon: Christos Denny MD; Location: [facility]OSCOPY ([facility]) OR LOCATION ESOPHAGOGASTRODUODENOSCOPY N/A 11/19/2021 Surgeon: Abiodun Shah MD; Location: [facility]OS[facility] ([facility]) OR LOCATION ESOPHAGOGASTRODUODENOSCOPY N/A 07/12/2023 Surgeon: Christos Denny MD; Location: [facility]OSCOPY ([facility]) OR LOCATION EXCISION HEPATOPANCREATIC AMPULLA (SHX) N/A 04/08/2022 Surgeon: Erasmo Tovar MD; Location: [facility] OR LOCATION HIP HEMIARTHROPLASTY Right 01/28/2024 Surgeon: Radha Lozano MD; Location: [facility] OR LOCATION PHACOEMULSIFICATION OF CATARACT WITH INTRAOCULAR LENS IMPLANT Left 10/25/2023 Surgeon: Rajiv Rudolph MD; Location: [facility] OR LOCATION PHACOEMULSIFICATION OF CATARACT WITH INTRAOCULAR LENS IMPLANT Right 11/29/2023 Surgeon: Rajiv Rudolph MD; Location: [facility] OR LOCATION UPPER ULTRASOUND (SHX) N/A 11/19/2021 Surgeon: Abiodun Shah MD; Location: ENDOSCOPY () OR LOCATION UPPER ULTRASOUND (SHX) N/A 07/12/2023 Surgeon: Christos Denny MD; Location: ENDOSCOPY () OR LOCATION Review of Systems: Review of Systems Constitutional: Positive for fatigue. Negative for fever. Respiratory: Negative for shortness of breath. Cardiovascular: Negative for chest pain, palpitations and leg swelling. Musculoskeletal: Positive for arthralgias. Neurological: Positive for headaches. All other systems reviewed and are negative. Physical Exam: ED Triage Vitals [02/24/24 1657] Weight 47.6 kg (105 lb) Actual or estimated Height 1.651 m (5' 5") BP 103/62 Pulse 72 Resp 18 Temp 36.3 ?C (97.4 ?F) Temp source Oral SpO2 98 % Measured on Room air Physical Exam Constitutional: Appearance: She is ill-appearing. HENT: Head: Normocephalic and atraumatic. Eyes: Extraocular Movements: Extraocular movements intact. Conjunctiva/sclera: Conjunctivae normal. Pupils: Pupils are equal, round, and reactive to light. Cardiovascular: Rate and Rhythm: Normal rate and regular rhythm. Pulses: Normal pulses. Heart sounds: Normal heart sounds. Pulmonary: Effort: Pulmonary effort is normal. Breath sounds: Normal breath sounds. Abdominal: General: Abdomen is flat. Palpations: Abdomen is soft. Musculoskeletal: Right hip: Tenderness present. Decreased strength. Skin: Coloration: Skin is pale. Comments: Bleeding from mid incision site - oozing Neurological: General: No focal deficit present. Mental Status: She is alert and oriented to person, place, and time. Radiology: CT HEAD WO CONTRAST Preliminary Result CT HEAD WO CONTRAST HISTORY: Headache, new or worsening (Age >= 50y) Headache, post stroke 1 month ago, 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 Sagittal and coronal reformats were obtained. FINDINGS: The ventricles and cerebral sulci are normal in caliber and configuration. No hydrocephalus, midline shift or pathological extra-axial fluid collection is present. The basal cisterns are unremarkable. There is no acute intracranial hemorrhage or significant mass effect. Global volume loss with commensurate ventricular caliber. Patchy periventricular hypodensities most likely representing chronic microvascular disease. Encephalomalacia involving the left superior parietal lobe. The mastoid air cells and paranasal air sinuses are clear. The calvarium and central skull base are unremarkable. IMPRESSION No acute intracranial hemorrhage or mass effect. Preliminary Report Dictated by Resident: Shante Box XR HIPS 2 VW RIGHT Final Result EXAM: XR FEMUR 2 VW RIGHT, EXAM: XR HIPS 2 VW RIGHT HISTORY: post op bleeding COMPARISON: January 2024 FINDINGS: Imaging of the femur and hip demonstrate interval right hip hemiarthroplasty change. Component alignment is unremarkable. There are no periprosthetic fractures. Postoperative soft tissue swelling and gas are seen with skin jacky in place over the lateral hip. Severe osteopenia is present. Arterial calcifications are present. Marked osteopenia is present. 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 Osteopenia. Jose E Kulkarni MD., have reviewed this study and agree with the above report. XR FEMUR 2 VW RIGHT Final Result EXAM: XR FEMUR 2 VW RIGHT, EXAM: XR HIPS 2 VW RIGHT HISTORY: post op bleeding COMPARISON: January 2024 FINDINGS: Imaging of the femur and hip demonstrate interval right hip hemiarthroplasty change. Component alignment is unremarkable. There are no periprosthetic fractures. Postoperative soft tissue swelling and gas are seen with skin jacky in place over the lateral hip. Severe osteopenia is present. Arterial calcifications are present. Marked osteopenia is present. 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 Osteopenia. Jose E Kulkarni MD., have reviewed this study and agree with the above report. Lab Results: Lab Results CBC WITH DIFF - Abnormal Result Value Ref Range WBC 9.79 4.30 - 11.10 10*3/?L RBC 2.59 (*) 3.93 - 5.25 10*6/?L HGB 7.8 (*) 11.6 - 15.0 g/dL HCT 23.4 (*) 35.7 - 45.2 % MCV 90.3 80.6 - 95.5 fL MCH 30.1 25.9 - 32.8 pg MCHC 33.3 31.6 - 35.1 g/dL RDW-SD 61.0 (*) 39.0 - 49.9 fL RDW-CV 18.7 (*) 12.0 - 15.5 % PLT 280 166 - 358 10*3/?L MPV 7.9 (*) 9.5 - 12.9 fL NRBC/100 WBC 0.0 0.0 - 10.0 /100 WBCs NRBC x10 3 <0.01 10*3/?L GRAN MAT (NEUT) % 70.8 % IMM GRAN % 0.80 % LYMPH % 18.4 % MONO % 7.6 % EOS % 1.8 % BASO % 0.6 % GRAN MAT x10 3 (ANC) 6.93 1.88 - 7.09 10*3/uL IMM GRAN x10 3 0.08 (*) 0.00 - 0.06 10*3/uL LYMPH x10 3 1.80 1.32 - 3.29 10*3/uL MONO x10 3 0.74 0.33 - 0.92 10*3/uL EOS x10 3 0.18 0.03 - 0.39 10*3/uL BASO x10 3 0.06 0.01 - 0.07 10*3/uL PROTHROMBIN TIME / INR - Abnormal PROTIME PATIENT 15.9 (*) 10.1 - 12.6 Seconds INR 1.4 COMP. METABOLIC PANEL (56992) - Abnormal NA 124 (*) 135 - 145 mmol/L K 3.0 (*) 3.5 - 5.0 mmol/L CL 94 (*) 98 - 108 mmol/L CO2 TOTAL 26 23 - 31 mmol/L AGAP 4 2 - 16 BUN 17 7 - 23 mg/dL GLUCOSE 109 70 - 110 mg/dL CREATININE 0.78 0.50 - 1.04 mg/dL TOTAL BILI 0.4 0.1 - 1.1 mg/dL CALCIUM 8.2 (*) 8.6 - 10.6 mg/dL T PROTEIN 4.9 (*) 6.3 - 8.2 g/dL ALBUMIN 2.6 (*) 3.5 - 5.0 g/dL ALK PHOS 81 34 - 122 U/L ALTv 13 5 - 35 U/L AST(SGOT) 20 13 - 40 U/L eGFR 78.3 mL/min/1.73m2 TYPE AND SCREEN IAT Negative ABORH INVESTIGATION ABO & RH O Positive EKG: If EKG completed, see Procedure Note. Orders and Treatments: Orders Placed This Encounter Procedures XR HIPS 2 VW RIGHT XR FEMUR [address] HEAD WO CONTRAST CBC WITH DIFF PROTHROMBIN TIME / INR COMP. METABOLIC PANEL (65667) Type and Screen - ONCE Routine ABORH INVESTIGATION Sodium, Urine Random Creatinine, Urine Random Osmolality Urine Osmolality, Serum or Plasma Cbc with Diff Basic Metabolic Panel (NA, K, CL, CO2, GLUCOSE, BUN, CREATININE, CA) Magnesium Naima Auris Surveillance by PCR (Infection Control Purposes) Urinalysis Iron Panel Ferritin Serum Cbc without Diff Transfusion Reaction Investigation Urinalysis (Spun) Cbc without Diff Consult Orthopaedic Surgery: Consult Adult Physical Therapy Consult Adult Occupational Therapy Orders Placed This Encounter Medications NaCl 0.9% (NS) bolus infusion 1,000 mL ondansetron (ZOFRAN (PF)) injection 4 mg silver nitrate applicator 1 Applicator acetaminophen (TYLENOL) tablet 650 mg aspirin 325 mg tablet DISCONTD: acetaminophen-codeine (TYLENOL #3) 300-30 mg tablet 1 tablet DISCONTD: amLODIPine (NORVASC) tablet 5 mg atorvastatin (LIPITOR) tablet 20 mg DISCONTD: carvediloL (COREG) tablet 25 mg cholecalciferol (vitamin D3) tablet 5,000 Units levothyroxine (SYNTHROID) tablet 112 mcg DISCONTD: losartan (COZAAR) tablet 25 mg DISCONTD: pantoprazole (PROTONIX) EC tablet 40 mg NaCl 0.9% (NS) bolus infusion 500 mL pantoprazole (PROTONIX) EC tablet 40 mg apkhqp-ksoobthc-xwaylgu (CREON) 12,000-38,000 -60,000 unit capsule 3 capsule fylehs-tkuoepmp-ypodpex (CREON) 12,000-38,000 -60,000 unit capsule 2 capsule cgjjhh-pqhixsvf-ujconjc (CREON) 12,000-38,000 -60,000 unit capsule 1 capsule Potassium Bicarb-Citric Acid (EFFER-K) effervescent tablet 40 mEq HYDROcodone-acetaminophen (NORCO 5) tablet 1 tablet acetaminophen-codeine (TYLENOL #3) 300-30 mg tablet 1 tablet Potassium Bicarb-Citric Acid (EFFER-K) effervescent tablet 20 mEq magnesium sulfate in water 2 gram/50 mL (4 %) infusion 2 g First Provider Eval: ED Events Date/Time Event User Comments 02/24/241701 Medical Screening Begins ERIC TOMAS -- 02/24/241701 First Provider Evaluation ERIC TOMAS -- ED COURSE ED Course as of 02/25/24 1200 Sat Feb 24, 20242010 Care reviewed with Dr Buchanan from Hospitalist service, unclear etiology to low sodium at 124. SIADH is a possibility especially if there is a hemorrhagic conversion of prior stroke or new bleed while on apixaban. Given reported DURON, will obtain CT head to rule out ICH. Will assess volume status to see if needs further fluids. Plan to touch base again with Dr Buchanan post CT. [RM] ED Course User Index [RM] Ranjit George MD Diagnosis/Impression as of 02/25/24 1200 Bleeding Anemia, unspecified type Hyponatremia Nonintractable headache, unspecified chronicity pattern, unspecified headache type Procedures: Procedures MDM: Medical Decision Making Jazz Camargo is a 79-year-old F with PMH stroke and hip replacement presenting today with continued bleeding from surgical incision site. Symptoms are likely due to effects of Eliquis. Hip X-Ray shows no obvious abnormalities with hip replacement. Orthopedics was consulted to assess surgical site. CBC showed HgB of 7.8. CMP showed Na of 124. Normal saline bolus initiated. Amount and/or Complexity of Data Reviewed Labs: ordered. Radiology: ordered. Risk Prescription drug management. Reviewed labs and x-rays Discussed with hospitalist (Dr. Buchanan) who called back at 7:55 PM - had signed out at 7 pm. Flowsheet Documentation: Scoring Tools: No data recorded Disposition/Condition: ED Disposition ED Disposition Admit - Observation Condition -- Comment Treatment Team: RAJIV [[id number]] Discharge Medications: Current Discharge Medication List STOP taking these medications aspirin 325 mg tablet Comments: Reason for Stopping: apixaban 5 mg tablet Comments: Reason for Stopping: vit C/E/zinc ox/sonia/lut/zeax (ICAPS AREDS2 ORAL) Comments: Reason for Stopping: BUDESONIDE ORAL Comments: Reason for Stopping: VITAMIN A ORAL Comments: Reason for Stopping: zinc sulfate (ZINC-220 ORAL) Comments: Reason for Stopping: suviao-upnmujhs-ctjjwli 12,000-38,000 -60,000 unit capsule Comments: Reason for Stopping: amLODIPine 5 mg tablet Comments: Reason for Stopping: hyoscyamine sulfate 0.125 mg sublingual tablet Comments: Reason for Stopping: sucralfate 1 gram tablet Comments: Reason for Stopping: acetaminophen with codeine (TYLENOL-CODEINE #3 ORAL) Comments: Reason for Stopping: atorvastatin 20 mg tablet Comments: Reason for Stopping: losartan 25 mg tablet Comments: Reason for Stopping: methscopolamine 5 mg tablet Comments: Reason for Stopping: ondansetron (ZOFRAN) 4 mg tablet Comments: Reason for Stopping: budesonide 3 mg 24 hr capsule Comments: Reason for Stopping: calcium/magnesium/zinc (KHZOXDI-AAGIXDNTKS-OFNA) 333-133-5 mg Tab Comments: Reason for Stopping: carvediloL 25 mg tablet Comments: Reason for Stopping: Cholecalciferol, Vitamin D3, 125 mcg (5,000 unit) tablet Comments: Reason for Stopping: cyanocobalamin, vitamin B-12, (VITAMIN B-12) 5,000 mcg/mL Drop Comments: Reason for Stopping: hydrALAZINE 50 mg tablet Comments: Reason for Stopping: Levothyroxine 112 mcg capsule Comments: Reason for Stopping: mesalamine 1.2 gram EC tablet Comments: Reason for Stopping: omeprazole 20 mg capsule Comments: Reason for Stopping: Follow-up: Addendum I personally examined and participated in decision-making for this patient with the student. Please see the student note for further details. Lab and imaging studies reviewed Findings discussed with patient Diagnosis 1. Bleeding from wound site, Hyponatremia, Anemia, Weakness Plan 1. Ortho eval and admit to medical service Electronically signed by: Eric Tomas MD 02/25/24 1205 Critical access hospital 2024-02-02 20:00:45 A patient w/ normal wob. Kamar Alarcon RT [facility] 2024-02-02 18:09:13 Problem: Falls, Risk of Goal: Absence of falls 02/02/20241808 by Demi Turner RN Outcome: Adequate for discharge 02/02/2024 1203 by Demi Turner, RN Outcome: Progressing as expected Problem: Discharge Planning Goal: Adequate for discharge 02/02/20241808 by Demi Turner RN Outcome: Adequate for discharge 02/02/2024 1203 by Demi Turner RN Outcome: Progressing as expected Goal: Effective communication 02/02/20241808 by Demi Turner RN Outcome: Adequate for discharge 02/02/2024 120 by Demi Turner RN Outcome: Progressing as expected Problem: Falls, Risk of Goal: Absence of falls 02/02/20241808 by Demi Turner RN Outcome: Adequate for discharge 02/02/2024 1203 by Demi Turner RN Outcome: Progressing as expected Problem: Glucose Control - Initiated in Adult CC Goal: Glucose level within specified parameters 02/02/20241808 by Demi Turner RN Outcome: Adequate for discharge 02/02/2024 1203 by Demi Turner RN Outcome: Progressing as expected Problem: Infection, Risk of or Actual Goal: Absence of infection 02/02/20241808 by Demi Turner RN Outcome: Adequate for discharge 02/02/2024 1203 by Demi Turner RN Outcome: Progressing as expected Problem: Mental Status - Impaired, Risk of Goal: Mental status restored to baseline 02/02/20241808 by Demi Turner RN Outcome: Adequate for discharge 02/02/2024 120 by Demi Turner RN Outcome: Progressing as expected Goal: Absence of physical injury 02/02/20241808 by Demi Turner, JIM Outcome: Adequate for discharge 02/02/2024 120 by eDmi Turner RN Outcome: Progressing as expected Problem: Skin integrity Impaired (Risk or Actual) Goal: Wound healing 02/02/2024 1809 by Demi Turner RN Outcome: Adequate for discharge 02/02/2024 1203 by Demi Turner RN Outcome: Progressing as expected Goal: Prevention of new skin breakdown 02/02/2024 180 by Demi Turner RN Outcome: Adequate for discharge 02/02/2024 1203 by Demi Turner RN Outcome: Progressing as expected Problem: Pain Goal: Control of pain at or below patient's documented comfort goal 02/02/2024 1809 by Demi Turner RN Outcome: Adequate for discharge 02/02/2024 1203 by Demi Turner RN Outcome: Progressing as expected Goal: Reduction in pain sensation 02/02/2024 180 by Demi Turner RN Outcome: Adequate for discharge 02/02/2024 1203 by Demi Turner RN Outcome: Progressing as expected Problem: Bleeding, Risk of Goal: Absence of impaired coagulation signs and symptoms 02/02/2024 180 by Demi Turner RN Outcome: Adequate for discharge 02/02/2024 1203 by Demi Turner RN Outcome: Progressing as expected Goal: Absence of active bleeding 02/02/2024 180 by Demi Turner RN Outcome: Adequate for discharge 02/02/2024 1203 by Demi Turner RN Outcome: Progressing as expected Problem: Discharge Planning Goal: Able to perform ADL 02/02/2024 180 by Demi Turner RN Outcome: Adequate for discharge 02/02/2024 1203 by Demi Turner RN Outcome: Progressing as expected Goal: Knowledge of medication management 02/02/2024 180 by Demi Turner RN Outcome: Adequate for discharge 02/02/2024 1203 by Demi Turner RN Outcome: Progressing as expected Goal: Knowledge of need for follow-up care 02/02/2024 180 by Demi Turner RN Outcome: Adequate for discharge 02/02/2024 1203 by Demi Turner RN Outcome: Progressing as expected Goal: Knowledge of personal stroke risk factors 02/02/2024 180 by Johnny, Demi B, RN Outcome: Adequate for discharge 02/02/2024 1203 by Demi Turner, RN Outcome: Progressing as expected Goal: Knowledge of stroke warning signs 02/02/2024 180 by Demi Turner, RN Outcome: Adequate for discharge 02/02/2024 1203 by Demi Turner, RN Outcome: Progressing as expected Problem: Aspiration, Risk of Goal: Absence of aspiration 02/02/2024 180 by Demi Turner RN Outcome: Adequate for discharge 02/02/2024 1203 by Demi Turner, RN Outcome: Progressing as expected Problem: Cognitive-Perceptual Pattern - Impaired Goal: Able to achieve maximum level of cognitive ability 02/02/2024 180 by Demi Turner, RN Outcome: Adequate for discharge 02/02/2024 1203 by Demi Turner, RN Outcome: Progressing as expected Goal: Mood stable 02/02/2024 180 by Demi Turner, RN Outcome: Adequate for discharge 02/02/2024 1203 by Demi Turner, RN Outcome: Progressing as expected Problem: Mobility - Impaired Goal: Able to achieve maximum mobility level 02/02/2024 180 by Demi Turner, RN Outcome: Adequate for discharge 02/02/2024 120 by Demi Turner, RN Outcome: Progressing as expected Goal: Able to use ambulatory assistive device appropriately 02/02/2024 180 by Demi Turner, RN Outcome: Adequate for discharge 02/02/2024 1203 by Demi Turner, RN Outcome: Progressing as expected Problem: Nutrition Deficit, Risk of Goal: Adequate nutritional intake 02/02/2024 180 by Demi Turner, RN Outcome: Adequate for discharge 02/02/2024 1203 by Demi Turner, RN Outcome: Progressing as expected Problem: Tissue Perfusion, Cerebral - Altered Goal: Absence of continued neurologic deterioration signs and symptoms 02/02/20241808 by Demi Turner, RN Outcome: Adequate for discharge 02/02/2024 1203 by Demi Turner, RN Outcome: Progressing as expected Problem: Respiratory Function - Impaired Goal: Able to cough effectively 02/02/2024 180 by Demi Turner, RN Outcome: Adequate for discharge 02/02/2024 1203 by Demi Turner RN Outcome: Progressing as expected Goal: Adequate oxygenation 02/02/2024 1809 by Demi Turner RN Outcome: Adequate for discharge 02/02/2024 1203 by Demi Turner RN Outcome: Progressing as expected Goal: Adequate work of breathing 02/02/2024 1809 by Demi Turner RN Outcome: Adequate for discharge 02/02/2024 1203 by Demi Turner RN Outcome: Progressing as expected Problem: Restraint Use Goal: Absence of restraint indications 02/02/2024 180 by Demi Turner RN Outcome: Adequate for discharge 02/02/2024 120 by Demi Turner RN Outcome: Progressing as expected Goal: Absence of restraint-related injury 02/02/2024 180 by Demi Turner RN Outcome: Adequate for discharge 02/02/2024 1203 by Demi Turner RN Outcome: Progressing as expected [facility] Demi Turner RN [facility] [place] 2024-02-02 12:03:12 Problem: Falls, Risk of Goal: Absence of falls Outcome: Progressing as expected Problem: Discharge Planning Goal: Adequate for discharge Outcome: Progressing as expected Goal: Effective communication Outcome: Progressing as expected Problem: Falls, Risk of Goal: Absence of falls Outcome: Progressing as expected Problem: Glucose Control - Initiated in Adult CC Goal: Glucose level within specified parameters Outcome: Progressing as expected Problem: Infection, Risk of or Actual Goal: Absence of infection Outcome: Progressing as expected [facility] 2024-02-02 01:40:27 A patient w/ normal wob. [facility] [place] 2024-02-01 21:33:32 Problem: Falls, Risk of Goal: Absence of falls 02/01/20242132 by Karen Ramírez RN Outcome: Progressing as expected 02/01/20242106 by Karen Ramírez, RN Outcome: Progressing as expected Problem: Discharge Planning Goal: Adequate for discharge 02/01/20242132 by Karen Ramírez RN Outcome: Progressing as expected 02/01/20242106 by Karen Ramírez RN Outcome: Progressing as expected Goal: Effective communication 02/01/20242132 by Karen Ramírez RN Outcome: Progressing as expected 02/01/20242106 by Karen Ramírez, RN Outcome: Progressing as expected Problem: Falls, Risk of Goal: Absence of falls 02/01/20242132 by Karen Ramírez RN Outcome: Progressing as expected 02/01/20242106 by Karen Ramírez RN Outcome: Progressing as expected Problem: Glucose Control - Initiated in Adult CC Goal: Glucose level within specified parameters 02/01/20242132 by Karen Ramírez RN Outcome: Progressing as expected 02/01/20242106 by Karen Ramírez RN Outcome: Progressing as expected Problem: Infection, Risk of or Actual Goal: Absence of infection 02/01/20242132 by Karne Ramírez RN Outcome: Progressing as expected 02/01/20242106 by Karen Ramírez RN Outcome: Progressing as expected Problem: Mental Status - Impaired, Risk of Goal: Mental status restored to baseline 02/01/20242132 by Karen Ramírez, RN Outcome: Progressing as expected 02/01/20242106 by Karen Ramírez RN Outcome: Progressing as expected Goal: Absence of physical injury 02/01/20242132 by Karen Ramírez RN Outcome: Progressing as expected 02/01/20242106 by Karen Ramírez, RN Outcome: Progressing as expected Problem: Pain Goal: Control of pain at or below patient's documented comfort goal 02/01/20242132 by Karen Ramírez, RN Outcome: Progressing as expected 02/01/20242106 by Karen Ramírez, RN Outcome: Progressing as expected Goal: Reduction in pain sensation 02/01/20242132 by Karen Ramírez RN Outcome: Progressing as expected 02/01/20242106 by Karen Ramírez RN Outcome: Progressing as expected Problem: Skin integrity Impaired (Risk or Actual) Goal: Wound healing 02/01/20242132 by Karen Ramírez, RN Outcome: Progressing as expected 02/01/20242106 by Karen Ramírez, RN Outcome: Progressing as expected Goal: Prevention of new skin breakdown 02/01/20242132 by Karen Ramírez, RN Outcome: Progressing as expected 02/01/20242106 by Karen Ramírez, RN Outcome: Progressing as expected Problem: Bleeding, Risk of Goal: Absence of impaired coagulation signs and symptoms 02/01/20242132 by Karen Ramírez RN Outcome: Progressing as expected 02/01/20242106 by Karen Ramírez RN Outcome: Progressing as expected Goal: Absence of active bleeding 02/01/20242132 by Karen Ramírez RN Outcome: Progressing as expected 02/01/20242106 by Karen Ramírez RN Outcome: Progressing as expected Problem: Discharge Planning Goal: Able to perform ADL 02/01/20242132 by Karen Ramírez RN Outcome: Progressing as expected 02/01/20242106 by Karen Ramírez RN Outcome: Progressing as expected Goal: Knowledge of medication management 02/01/20242132 by Karen Ramírez, JIM Outcome: Progressing as expected 02/01/20242106 by Karen Ramírez RN Outcome: Progressing as expected Goal: Knowledge of need for follow-up care 02/01/20242132 by Karen Ramírez, RN Outcome: Progressing as expected 02/01/20242106 by Karen Ramírez RN Outcome: Progressing as expected Goal: Knowledge of personal stroke risk factors 02/01/20242132 by Karen Ramírez, RN Outcome: Progressing as expected 02/01/20242106 by Karen Ramírez, RN Outcome: Progressing as expected Goal: Knowledge of stroke warning signs 02/01/20242132 by Karen Ramírez, RN Outcome: Progressing as expected 02/01/20242106 by Karen Ramírez RN Outcome: Progressing as expected Problem: Aspiration, Risk of Goal: Absence of aspiration 02/01/20242132 by Karen Ramírez, RN Outcome: Progressing as expected 02/01/20242106 by Karen Ramírez, RN Outcome: Progressing as expected Problem: Complications of thrombolytic administration (risk or actual) Goal: Absence of impaired coagulation signs and symptoms 02/01/20242132 by Karen Ramírez, RN Outcome: Progressing as expected 02/01/20242106 by Karen Ramírez, RN Outcome: Progressing as expected Goal: Absence of active bleeding 02/01/20242132 by Karen Ramírez, RN Outcome: Progressing as expected 02/01/20242106 by Karen Ramírez, RN Outcome: Progressing as expected Goal: Absence of angioedema signs & symptoms 02/01/20242132 by Karen Ramírez, RN Outcome: Progressing as expected 02/01/20242106 by Karen Ramríez, RN Outcome: Progressing as expected Problem: Cognitive-Perceptual Pattern - Impaired Goal: Able to achieve maximum level of cognitive ability 02/01/20242132 by Karen Ramírez, RN Outcome: Progressing as expected 02/01/20242106 by Karen Ramírez, RN Outcome: Progressing as expected Goal: Mood stable 02/01/20242132 by Karen Ramírez, RN Outcome: Progressing as expected 02/01/20242106 by Karen Ramírez, RN Outcome: Progressing as expected Problem: Mobility - Impaired Goal: Able to achieve maximum mobility level 02/01/20242132 by Karen Ramírez, RN Outcome: Progressing as expected 02/01/20242106 by Karen Ramírez, RN Outcome: Progressing as expected Goal: Able to use ambulatory assistive device appropriately 02/01/20242132 by Karen Ramírez, RN Outcome: Progressing as expected 02/01/20242106 by Karen Ramírez, RN Outcome: Progressing as expected Problem: Nutrition Deficit, Risk of Goal: Adequate nutritional intake 02/01/20242132 by Karen Ramírez, RN Outcome: Progressing as expected 02/01/20242106 by Karen Ramírez RN Outcome: Progressing as expected Problem: Tissue Perfusion, Cerebral - Altered Goal: Absence of continued neurologic deterioration signs and symptoms 02/01/20242132 by Karen Ramírez RN Outcome: Progressing as expected 02/01/20242106 by Karen Ramírez RN Outcome: Progressing as expected Problem: Respiratory Function - Impaired Goal: Able to cough effectively 02/01/20242132 by Karen Ramírez RN Outcome: Progressing as expected 02/01/20242106 by Karen Ramírez RN Outcome: Progressing as expected Goal: Adequate oxygenation 02/01/20242132 by Karen Ramírez RN Outcome: Progressing as expected 02/01/20242106 by Karen Ramírez RN Outcome: Progressing as expected Goal: Adequate work of breathing 02/01/20242132 by Karen Ramírez RN Outcome: Progressing as expected 02/01/20242106 by Karen Ramírez RN Outcome: Progressing as expected Problem: Restraint Use Goal: Absence of restraint indications 02/01/20242132 by Karen Ramírez RN Outcome: Progressing as expected 02/01/20242106 by Karen Ramírez RN Outcome: Progressing as expected Goal: Absence of restraint-related injury 02/01/20242132 by Karen Ramírez RN Outcome: Progressing as expected 02/01/20242106 by Karen Ramírez RN Outcome: Progressing as expected Karen Ramírez RN [facility] 2024-02-01 21:07:04 Problem: Falls, Risk of Goal: Absence of falls Outcome: Progressing as expected Problem: Discharge Planning Goal: Adequate for discharge Outcome: Progressing as expected Goal: Effective communication Outcome: Progressing as expected Problem: Falls, Risk of Goal: Absence of falls Outcome: Progressing as expected Problem: Glucose Control - Initiated in Adult CC Goal: Glucose level within specified parameters Outcome: Progressing as expected Problem: Infection, Risk of or Actual Goal: Absence of infection Outcome: Progressing as expected Problem: Mental Status - Impaired, Risk of Goal: Mental status restored to baseline Outcome: Progressing as expected Goal: Absence of physical injury Outcome: Progressing as expected Problem: Pain Goal: Control of pain at or below patient's documented comfort goal Outcome: Progressing as expected Goal: Reduction in pain sensation Outcome: Progressing as expected Problem: Skin integrity Impaired (Risk or Actual) Goal: Wound healing Outcome: Progressing as expected Goal: Prevention of new skin breakdown Outcome: Progressing as expected Problem: Bleeding, Risk of Goal: Absence of impaired coagulation signs and symptoms Outcome: Progressing as expected Goal: Absence of active bleeding Outcome: Progressing as expected Problem: Discharge Planning Goal: Able to perform ADL Outcome: Progressing as expected Goal: Knowledge of medication management Outcome: Progressing as expected Goal: Knowledge of need for follow-up care Outcome: Progressing as expected Goal: Knowledge of personal stroke risk factors Outcome: Progressing as expected Goal: Knowledge of stroke warning signs Outcome: Progressing as expected Problem: Aspiration, Risk of Goal: Absence of aspiration Outcome: Progressing as expected Problem: Complications of thrombolytic administration (risk or actual) Goal: Absence of impaired coagulation signs and symptoms Outcome: Progressing as expected Goal: Absence of active bleeding Outcome: Progressing as expected Goal: Absence of angioedema signs & symptoms Outcome: Progressing as expected Problem: Cognitive-Perceptual Pattern - Impaired Goal: Able to achieve maximum level of cognitive ability Outcome: Progressing as expected Goal: Mood stable Outcome: Progressing as expected Problem: Mobility - Impaired Goal: Able to achieve maximum mobility level Outcome: Progressing as expected Goal: Able to use ambulatory assistive device appropriately Outcome: Progressing as expected Problem: Nutrition Deficit, Risk of Goal: Adequate nutritional intake Outcome: Progressing as expected Problem: Tissue Perfusion, Cerebral - Altered Goal: Absence of continued neurologic deterioration signs and symptoms Outcome: Progressing as expected Problem: Respiratory Function - Impaired Goal: Able to cough effectively Outcome: Progressing as expected Goal: Adequate oxygenation Outcome: Progressing as expected Goal: Adequate work of breathing Outcome: Progressing as expected Problem: Restraint Use Goal: Absence of restraint indications Outcome: Progressing as expected Goal: Absence of restraint-related injury Outcome: Progressing as expected [facility] 2024-02-01 06:49:43 Problem: Falls, Risk of Goal: Absence of falls Outcome: Progressing as expected Problem: Discharge Planning Goal: Adequate for discharge Outcome: Progressing as expected Goal: Effective communication Outcome: Progressing as expected Problem: Falls, Risk of Goal: Absence of falls Outcome: Progressing as expected Problem: Glucose Control - Initiated in Adult CC Goal: Glucose level within specified parameters Outcome: Progressing as expected Problem: Infection, Risk of or Actual Goal: Absence of infection Outcome: Progressing as expected Problem: Mental Status - Impaired, Risk of Goal: Mental status restored to baseline Outcome: Progressing as expected Goal: Absence of physical injury Outcome: Progressing as expected Problem: Pain Goal: Control of pain at or below patient's documented comfort goal Outcome: Progressing as expected Goal: Reduction in pain sensation Outcome: Progressing as expected Problem: Skin integrity Impaired (Risk or Actual) Goal: Wound healing Outcome: Progressing as expected Goal: Prevention of new skin breakdown Outcome: Progressing as expected Problem: Discharge Planning Goal: Able to perform ADL Outcome: Progressing as expected Goal: Knowledge of medication management Outcome: Progressing as expected Goal: Knowledge of need for follow-up care Outcome: Progressing as expected Goal: Knowledge of personal stroke risk factors Outcome: Progressing as expected Goal: Knowledge of stroke warning signs Outcome: Progressing as expected Problem: Aspiration, Risk of Goal: Absence of aspiration Outcome: Progressing as expected Problem: Complications of thrombolytic administration (risk or actual) Goal: Absence of impaired coagulation signs and symptoms Outcome: Progressing as expected Goal: Absence of active bleeding Outcome: Progressing as expected Goal: Absence of angioedema signs & symptoms Outcome: Progressing as expected Problem: Cognitive-Perceptual Pattern - Impaired Goal: Able to achieve maximum level of cognitive ability Outcome: Progressing as expected Goal: Mood stable Outcome: Progressing as expected Problem: Nutrition Deficit, Risk of Goal: Adequate nutritional intake Outcome: Progressing as expected Problem: Mobility - Impaired Goal: Able to achieve maximum mobility level Outcome: Progressing as expected Goal: Able to use ambulatory assistive device appropriately Outcome: Progressing as expected Problem: Tissue Perfusion, Cerebral - Altered Goal: Absence of continued neurologic deterioration signs and symptoms Outcome: Progressing as expected Marita Esparza RN [facility] 2024-01-31 18:46:12 Problem: Falls, Risk of Goal: Absence of falls Outcome: Progressing as expected Problem: Discharge Planning Goal: Adequate for discharge Outcome: Progressing as expected Goal: Effective communication Outcome: Progressing as expected Problem: Falls, Risk of Goal: Absence of falls Outcome: Progressing as expected Problem: Glucose Control - Initiated in Adult CC Goal: Glucose level within specified parameters Outcome: Progressing as expected Problem: Infection, Risk of or Actual Goal: Absence of infection Outcome: Progressing as expected Milton Pedroza RN [facility] 2024-01-31 14:43:45 Addendum created 01/31/24 1443 by Kalia Mosquera MD Attestation recorded in Intra[facility], Flowsheet accepted, Intraprocedure Attestations filed [facility] 2024-01-31 06:23:51 Problem: Falls, Risk of Goal: Absence of falls Outcome: Progressing as expected Problem: Discharge Planning Goal: Adequate for discharge Outcome: Progressing as expected Goal: Effective communication Outcome: Progressing as expected Problem: Falls, Risk of Goal: Absence of falls Outcome: Progressing as expected Problem: Glucose Control - Initiated in Adult CC Goal: Glucose level within specified parameters Outcome: Progressing as expected Problem: Infection, Risk of or Actual Goal: Absence of infection Outcome: Progressing as expected Problem: Mental Status - Impaired, Risk of Goal: Mental status restored to baseline Outcome: Progressing as expected Goal: Absence of physical injury Outcome: Progressing as expected Problem: Pain Goal: Control of pain at or below patient's documented comfort goal Outcome: Progressing as expected Goal: Reduction in pain sensation Outcome: Progressing as expected Problem: Skin integrity Impaired (Risk or Actual) Goal: Wound healing Outcome: Progressing as expected Goal: Prevention of new skin breakdown Outcome: Progressing as expected Problem: Bleeding, Risk of Goal: Absence of impaired coagulation signs and symptoms Outcome: Progressing as expected Goal: Absence of active bleeding Outcome: Progressing as expected Problem: Discharge Planning Goal: Able to perform ADL Outcome: Progressing as expected Goal: Knowledge of medication management Outcome: Progressing as expected Goal: Knowledge of need for follow-up care Outcome: Progressing as expected Goal: Knowledge of personal stroke risk factors Outcome: Progressing as expected Goal: Knowledge of stroke warning signs Outcome: Progressing as expected Problem: Complications of thrombolytic administration (risk or actual) Goal: Absence of impaired coagulation signs and symptoms Outcome: Progressing as expected Goal: Absence of active bleeding Outcome: Progressing as expected Goal: Absence of angioedema signs & symptoms Outcome: Progressing as expected Problem: Cognitive-Perceptual Pattern - Impaired Goal: Able to achieve maximum level of cognitive ability Outcome: Progressing as expected Goal: Mood stable Outcome: Progressing as expected Problem: Tissue Perfusion, Cerebral - Altered Goal: Absence of continued neurologic deterioration signs and symptoms Outcome: Progressing as expected Problem: Nutrition Deficit, Risk of Goal: Adequate nutritional intake Outcome: Progressing as expected Problem: Respiratory Function - Impaired Goal: Able to cough effectively Outcome: Progressing as expected Goal: Adequate oxygenation Outcome: Progressing as expected Goal: Adequate work of breathing Outcome: Progressing as expected [facility] 2024-01-30 07:50:55 Problem: Falls, Risk of Goal: Absence of falls Outcome: Progressing as expected Problem: Discharge Planning Goal: Adequate for discharge Outcome: Progressing as expected Goal: Effective communication Outcome: Progressing as expected Problem: Falls, Risk of Goal: Absence of falls Outcome: Progressing as expected Problem: Glucose Control - Initiated in Adult CC Goal: Glucose level within specified parameters Outcome: Progressing as expected Problem: Infection, Risk of or Actual Goal: Absence of infection Outcome: Progressing as expected Problem: Mental Status - Impaired, Risk of Goal: Mental status restored to baseline Outcome: Progressing as expected Goal: Absence of physical injury Outcome: Progressing as expected Problem: Skin integrity Impaired (Risk or Actual) Goal: Wound healing Outcome: Progressing as expected Goal: Prevention of new skin breakdown Outcome: Progressing as expected Problem: Bleeding, Risk of Goal: Absence of impaired coagulation signs and symptoms Outcome: Progressing as expected Goal: Absence of active bleeding Outcome: Progressing as expected Problem: Discharge Planning Goal: Able to perform ADL Outcome: Progressing as expected Goal: Knowledge of medication management Outcome: Progressing as expected Goal: Knowledge of need for follow-up care Outcome: Progressing as expected Goal: Knowledge of personal stroke risk factors Outcome: Progressing as expected Goal: Knowledge of stroke warning signs Outcome: Progressing as expected Problem: Aspiration, Risk of Goal: Absence of aspiration Outcome: Progressing as expected Problem: Complications of thrombolytic administration (risk or actual) Goal: Absence of impaired coagulation signs and symptoms Outcome: Progressing as expected Goal: Absence of active bleeding Outcome: Progressing as expected Goal: Absence of angioedema signs & symptoms Outcome: Progressing as expected Problem: Cognitive-Perceptual Pattern - Impaired Goal: Able to achieve maximum level of cognitive ability Outcome: Progressing as expected Goal: Mood stable Outcome: Progressing as expected Problem: Mobility - Impaired Goal: Able to achieve maximum mobility level Outcome: Progressing as expected Goal: Able to use ambulatory assistive device appropriately Outcome: Progressing as expected Problem: Nutrition Deficit, Risk of Goal: Adequate nutritional intake Outcome: Progressing as expected Problem: Tissue Perfusion, Cerebral - Altered Goal: Absence of continued neurologic deterioration signs and symptoms Outcome: Progressing as expected Problem: Respiratory Function - Impaired Goal: Able to cough effectively Outcome: Progressing as expected Goal: Adequate oxygenation Outcome: Progressing as expected Goal: Adequate work of breathing Outcome: Progressing as expected Problem: Restraint Use Goal: Absence of restraint-related injury Outcome: Progressing as expected [facility] 2024-01-30 02:17:23 Problem: Falls, Risk of Goal: Absence of falls Outcome: Progressing as expected Problem: Discharge Planning Goal: Adequate for discharge Outcome: Progressing as expected Goal: Effective communication Outcome: Progressing as expected Problem: Discharge Planning Goal: Effective communication Outcome: Progressing as expected Problem: Falls, Risk of Goal: Absence of falls Outcome: Progressing as expected Problem: Glucose Control - Initiated in Adult CC Goal: Glucose level within specified parameters Outcome: Progressing as expected Problem: Infection, Risk of or Actual Goal: Absence of infection Outcome: Progressing as expected Problem: Mental Status - Impaired, Risk of Goal: Mental status restored to baseline Outcome: Progressing as expected Goal: Absence of physical injury Outcome: Progressing as expected Problem: Pain Goal: Control of pain at or below patient's documented comfort goal Outcome: Progressing as expected Goal: Reduction in pain sensation Outcome: Progressing as expected Problem: Skin integrity Impaired (Risk or Actual) Goal: Wound healing Outcome: Progressing as expected Goal: Prevention of new skin breakdown Outcome: Progressing as expected Problem: Bleeding, Risk of Goal: Absence of impaired coagulation signs and symptoms Outcome: Progressing as expected Goal: Absence of active bleeding Outcome: Progressing as expected Problem: Discharge Planning Goal: Able to perform ADL Outcome: Progressing as expected Goal: Knowledge of medication management Outcome: Progressing as expected Goal: Knowledge of need for follow-up care Outcome: Progressing as expected Goal: Knowledge of personal stroke risk factors Outcome: Progressing as expected Goal: Knowledge of stroke warning signs Outcome: Progressing as expected Problem: Aspiration, Risk of Goal: Absence of aspiration Outcome: Progressing as expected Problem: Complications of thrombolytic administration (risk or actual) Goal: Absence of impaired coagulation signs and symptoms Outcome: Progressing as expected Goal: Absence of active bleeding Outcome: Progressing as expected Goal: Absence of angioedema signs & symptoms Outcome: Progressing as expected Problem: Cognitive-Perceptual Pattern - Impaired Goal: Able to achieve maximum level of cognitive ability Outcome: Progressing as expected Goal: Mood stable Outcome: Progressing as expected Problem: Mobility - Impaired Goal: Able to achieve maximum mobility level Outcome: Progressing as expected Goal: Able to use ambulatory assistive device appropriately Outcome: Progressing as expected Problem: Nutrition Deficit, Risk of Goal: Adequate nutritional intake Outcome: Progressing as expected Problem: Tissue Perfusion, Cerebral - Altered Goal: Absence of continued neurologic deterioration signs and symptoms Outcome: Progressing as expected Problem: Respiratory Function - Impaired Goal: Able to cough effectively Outcome: Progressing as expected Goal: Adequate oxygenation Outcome: Progressing as expected Goal: Adequate work of breathing Outcome: Progressing as expected [facility] 2024-01-29 16:36:23 Addendum created 01/29/24 1636 by Jluis Barksdale MD Intraprocedure Meds edited Critical access hospital 2024-01-29 13:50:01 Problem: Falls, Risk of Goal: Absence of falls 01/29/2024 1349 by Javier Duarte RN Outcome: Progressing as expected 01/29/2024 1348 by Javier Duarte RN Outcome: Progressing as expected Problem: Discharge Planning Goal: Adequate for discharge 01/29/2024 1349 by Javier Duarte RN Outcome: Progressing as expected 01/29/2024 1348 by Javier Duarte RN Outcome: Progressing as expected Goal: Effective communication 01/29/2024 1349 by Javier Duarte RN Outcome: Progressing as expected 01/29/2024 1348 by Javier Duarte RN Outcome: Progressing as expected Problem: Falls, Risk of Goal: Absence of falls 01/29/2024 1349 by Javier Duarte RN Outcome: Progressing as expected 01/29/2024 1348 by Javier Duarte RN Outcome: Progressing as expected Problem: Glucose Control - Initiated in Adult CC Goal: Glucose level within specified parameters 01/29/2024 1349 by Javier Duarte RN Outcome: Progressing as expected 01/29/2024 1348 by Javier Duarte RN Outcome: Progressing as expected Problem: Infection, Risk of or Actual Goal: Absence of infection 01/29/2024 1349 by Javier Duarte RN Outcome: Progressing as expected 01/29/2024 1348 by Javier Duarte RN Outcome: Progressing as expected Problem: Mental Status - Impaired, Risk of Goal: Mental status restored to baseline 01/29/2024 1349 by Javier Duarte RN Outcome: Progressing as expected 01/29/2024 1348 by Javier Duarte RN Outcome: Progressing as expected Goal: Absence of physical injury 01/29/2024 1349 by Javier Duarte RN Outcome: Progressing as expected 01/29/2024 1348 by Javier Duarte RN Outcome: Progressing as expected Problem: Pain Goal: Control of pain at or below patient's documented comfort goal 01/29/2024 1349 by Javier Duarte RN Outcome: Progressing as expected 01/29/2024 1348 by Javier Duarte RN Outcome: Progressing as expected Goal: Reduction in pain sensation 01/29/2024 1349 by Javier Duarte RN Outcome: Progressing as expected 01/29/2024 1348 by Javier Duarte RN Outcome: Progressing as expected Problem: Skin integrity Impaired (Risk or Actual) Goal: Wound healing 01/29/2024 1349 by Javier Duarte RN Outcome: Progressing as expected 01/29/2024 1348 by Javier Duarte RN Outcome: Progressing as expected Goal: Prevention of new skin breakdown 01/29/2024 1349 by Javier Duarte RN Outcome: Progressing as expected 01/29/2024 1348 by Javier Duarte RN Outcome: Progressing as expected Problem: Bleeding, Risk of Goal: Absence of impaired coagulation signs and symptoms 01/29/2024 1349 by Javier Duarte RN Outcome: Progressing as expected 01/29/2024 1348 by Javier Duarte RN Outcome: Progressing as expected Goal: Absence of active bleeding 01/29/2024 1349 by Javier Duarte RN Outcome: Progressing as expected 01/29/2024 1348 by Javier Duarte RN Outcome: Progressing as expected Problem: Discharge Planning Goal: Able to perform ADL Outcome: Progressing as expected Goal: Knowledge of medication management Outcome: Progressing as expected Goal: Knowledge of need for follow-up care Outcome: Progressing as expected Goal: Knowledge of personal stroke risk factors Outcome: Progressing as expected Goal: Knowledge of stroke warning signs Outcome: Progressing as expected Problem: Aspiration, Risk of Goal: Absence of aspiration Outcome: Progressing as expected Problem: Complications of thrombolytic administration (risk or actual) Goal: Absence of impaired coagulation signs and symptoms Outcome: Progressing as expected Goal: Absence of active bleeding Outcome: Progressing as expected Goal: Absence of angioedema signs & symptoms Outcome: Progressing as expected Problem: Cognitive-Perceptual Pattern - Impaired Goal: Able to achieve maximum level of cognitive ability Outcome: Progressing as expected Goal: Mood stable Outcome: Progressing as expected Problem: Mobility - Impaired Goal: Able to achieve maximum mobility level Outcome: Progressing as expected Goal: Able to use ambulatory assistive device appropriately Outcome: Progressing as expected Problem: Nutrition Deficit, Risk of Goal: Adequate nutritional intake Outcome: Progressing as expected Problem: Tissue Perfusion, Cerebral - Altered Goal: Absence of continued neurologic deterioration signs and symptoms Outcome: Progressing as expected T [facility] 2024-01-29 11:22:48 Jazz Camargo is a 79 year old right handed female with PMHX of htn who presented on 01/27/2024 with sudden onset aphasia and right sided weakness accompanied with a fall ( 01/26/2024 ). NIHSS initially 15. CT head unremarkable, CTA head and neck left M1 occlusion examination was concerning for neck of femur fracture. Which was confirmed on imaging. Due to presentation with trauma and hip fracture, a scott CT was obtained was to rule out any internal bleeding. TNK not given due to BP persistently elevated even after labetalol and recent fracture. However, IR called for the patient before TNK administration and the family agreed to go to the angiogram without TNK given. DSA was done and showed fully recanalized LMCA, and distal left M4 occlusion so no thrombectomy was done. R hip hemiarthroplasty done on 01/28/2024. Restarted DVT prophylaxis. Repeat CTH wo contrast on 01/28/2024, reporting acute/subacute infarct in the left posterior temporal lobe. MRI of the brain on 01/29/2024 with acute left posterior temporal-parietal region. Hgb dropped to 5.1, requiring 2 units of PRBCs, repeat Hgb: 9.0. The patient spiked a fever on 01/30/2024, blood cultures negative for 24 hours, UA: negative. The patient mentation improved. Aspirin 650 mg loading dose ordered, followed by 325 mg daily. The patient is table and being transferred to the floor. [facility] 2024-01-29 10:31:44 Addendum created 01/29/24 1031 by Byron Mojica MD Intraprocedure Staff edited Critical access hospital 2024-01-29 03:48:37 Problem: Falls, Risk of Goal: Absence of falls Outcome: Progressing as expected Problem: Discharge Planning Goal: Adequate for discharge Outcome: Progressing as expected Goal: Effective communication Outcome: Progressing as expected Problem: Falls, Risk of Goal: Absence of falls Outcome: Progressing as expected Problem: Glucose Control - Initiated in Adult CC Goal: Glucose level within specified parameters Outcome: Progressing as expected Problem: Infection, Risk of or Actual Goal: Absence of infection Outcome: Progressing as expected Problem: Mental Status - Impaired, Risk of Goal: Mental status restored to baseline Outcome: Progressing as expected Goal: Absence of physical injury Outcome: Progressing as expected Problem: Pain Goal: Control of pain at or below patient's documented comfort goal Outcome: Progressing as expected Goal: Reduction in pain sensation Outcome: Progressing as expected Problem: Skin integrity Impaired (Risk or Actual) Goal: Wound healing Outcome: Progressing as expected Goal: Prevention of new skin breakdown Outcome: Progressing as expected Problem: Bleeding, Risk of Goal: Absence of impaired coagulation signs and symptoms Outcome: Progressing as expected Goal: Absence of active bleeding Outcome: Progressing as expected Lorena Mistry RN [facility] 2024-01-28 19:19:53 Patient: Jazz Camargo Procedure Summary Date: 01/28/24 Room / Location: [address] Anesthesia Start: 1235 Anesthesia Stop: 1616 Procedure: HIP HEMIARTHROPLASTY (Right: Leg) Diagnosis: Closed displaced fracture of right femoral neck (Closed displaced fracture of right femoral neck [S72.001A]) Surgeons: Radha Lozano MD Responsible Provider: Kalia Mosquera MD Anesthesia Type: General ASA Status: 4 Anesthesia Type: General Last vitals BP Temp 35.3 ?C (95.5 ?F) (01/28/24 190) Pulse 62 (01/28/24 1900) Resp 21 (01/28/241899) SpO2 98 % (01/28/241899) There were no known notable events for this encounter. Anesthesia Post Evaluation Patient location during evaluation: PACU Patient participation: complete - patient participated Level of consciousness: awake and alert Pain score: 0 Pain management: satisfactory to patient Airway patency: patent Cardiovascular status: acceptable and blood pressure returned to baseline Respiratory status: acceptable Hydration status: acceptable AN-ANESTHESIOLOGY ANESTHESIOLOGIST [facility] 2024-01-28 13:53:00 OPERATIVE NOTE Procedure: right hip hemiarthroplasty [ CPT 65696 ] Date of procedure: 01/28/2024 Faculty Surgeon(s): MD Blake. Please note that I was scrubbed for the critical portion of the case from time out until stem implantation and was immediately available for the remainder of the case. Resident Surgeon(s): Nina Mullins Wang Pre-operative Diagnosis: Right femoral neck fracture, displaced, unstable. Post-operative Diagnosis: same Anesthesia: general - GETA Drains: none NVM: neurovascularly unchanged Complications: none Estimated Blood Loss: 200 mL Findings: Left femoral neck fracture without signficant degenerative changes in the acetabulum; chronic right lower leg wound approximately 5x5cm with necrotic tissue superficially; small right lower leg superficial skin avulsion more proximally treated with jacky. Specimens: None Implants: Implant Name Type Inv. Item Serial No. Tandem Mill Operator Lot No. LRB No. Used Action STEM FMRL 160MM 14 STD OFFSET TAP PRIM DISTAL BULLET TIP #[id number] - SN/A Joint Prosthesis STEM FMRL 160MM 14 STD OFFSET TAP PRIM DISTAL BULLET TIP #[id number] N/A [employer] [id number] Right 1 Implanted UNIPOLAR HEAD [employer] 46MM #[id number] - SN/A Joint Prosthesis UNIPOLAR HEAD [employer] 46MM #[id number] N/A [employer] [id number] Right 1 Implanted SLEEVE [employer] UNIPOLAR 12/14 TAPER/4 #[id number] - SN/A Joint Prosthesis SLEEVE [employer] UNIPOLAR 12/14 TAPER/4 #[id number] N/A [employer] [id number] Right 1 Implanted Indications: Jazz Camargo is a 79 year old female who sustained a displaced right femoral neck fracture after a ground level fall. 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 Surgery was held until second day after admission per primary team request due to strict need for permission hypertension first 24 hours. Discussed surgical risks including, but not limited to, pain, bleeding, infection, damage to adjacent structures including nerves, blood vessels, soft tissue, and bone; need for further procedures; failure to relieve pain; worsening of pain; hardware failure; loosening and/or wear; change in limb length and/or alignment; fracture; dislocation; decreased strength, sensation and/or ROM; adverse reaction to implants and/or medicines; DVT/PE; ID; stroke; GI bleed; organ failure; and any other unforeseen circumstances. All questions and concerns answered. Written consent obtained. Narrative The patient was identified in the pre-operative holding area, and the correct surgical site was identified with verbal verification by the patient and marked. The patient was then taken to the operating room and placed supine on the operating table. A time-out was performed between anesthesia and orthopedic faculty. Prophylactic intravenous antibiotics were given. Patient was placed under general anesthesia. A braga was already in place. The patient was than placed in the right lateral decubitus position using the anderson bag positioner. All pressure points were well padded, and an axillary roll was placed. Dressing were removed from the right lower leg wound, and necrotic tissue was gently bluntly debrided with gauze, and the wound was cordoned off with the foot and ankle with a 1010 drape. The right lower extremity was then prepped and draped in the standard sterile fashion. A standard posterior approach to the hip was utilized. The incision was made at the proximal aspect of the femur extending proximally along the posterior third of the greater trochanter curving posteriorly towards the posterior iliac spine. The incision was carried down to the fascia douglas, which was incised at its most distal aspect and extended proximally to the level of the greater trochanter. This was then curved posteriorly in line with the fibers of the gluteus danielle, which was then split with blunt finger dissection. The sciatic nerve was identified and palpated and was protected throughout the entire procedure. Electrocautery was used to incise the bursa and expose the piriformis and short external rotators. The gluteus medius was identified and retracted. The piriformis and external rotators were released from the posterolateral aspect of the femur in one sleeve after separation off the capsule. A T-shaped capsulotomy was performed to expose the acetabulum and the femoral head and neck. The femoral head was then dislocated and retractors were placed around the neck. The femoral neck cutting guide was used to make a neck cut at 1 cm proximal to the lesser trochanter using an oscillating saw. The head was passed to the back table for measurement and measured 48 mm. The acetabulum was inspected, and there were no osteophytes or full thickness cartilage wear. Attention was then turned back to the femur. Using a box cutting chisel, the box cut was made, then the canal finder, and last a lateralizing reamer on power. Femoral broaching was then performed until the broach was noted to be stable to rotational stress. The final broach size was 14. The trial head and +0 trial neck were then placed, and the hip was reduced. The leg length was felt to be a few millimeters short, although the hip was noted to have excellent stability at flexion/adduction/internal rotation of 90/30/50 using a size 14 femoral stem, 49 mm +0 unipolar head and standard offset neck. Therefore, the hip was dislocated and the trial components were removed and the femur was well irrigated. A size 14 femoral component was then placed with a standard offset neck. Trial +4 head was placed. The hip was then reduced. Again, the leg length was fount to be appropriate and the hip was noted to have excellent stability at flexion/adduction/internal rotation of 90/30/80. There was minimal lateral and longitudinal shuck. Hip was dislocated and final implant of 48 +4 head was placed. Length and stability was again checked a final time, with minimal shuck and stability to 90/30/80. The leg was placed on a dickey stand with slight abduction through the remainder of closure. The wound was then thoroughly irrigated using the jet lavage. The capsule was repaired through bone tunnels in the trochanter with #5 fiberwire, then the inferior and superior limb brought together with 0 vicryl. The external rotators were then repaired through bone tunnels in the posterolateral proximal femur also with #5 fiberwire. The sciatic nerve was once again palpated and noted to be supple without tension. The wound was then further irrigated using Jet lavage. Vancomycin irrigation was performed. The fascial layer was closed with interrupted #0 vicryl and running #2 Quill, and the subcutaneous tissue was then approximated with 2-0 Vicryl. The skin was closed with jacky. A sterile dressing was applied. A knee immobilizer was applied. A small lower leg superficial skin tear was noted with removal of drapes, which was secured with four jacky and covered in a sterile dressing. The patient was then extubated and taken to ICU awake and in stable condition POST OP PLAN: WBAT with posterior hip precautions. Pillow between legs when seated or supine. Knee immobilizer when sleeping or mobilizing with simple pillow between legs when in bed. May remove immobilizer when awake and when transferring and out of bed etc. At least 28 days pharmacologic DVT ppx per primary team discretion. Mechanical DVT ppx. Wound care consultation for chronic right lower leg wound. 24h post op ancef q8h. Steven Mullins M.D. 4:18 PM 01/28/2024 PGY-5, [facility] Department of Orthopaedic Surgery and Rehabilitation [facility] 2024-01-28 04:49:34 Problem: Falls, Risk of Goal: Absence of falls Outcome: Progressing as expected Problem: Discharge Planning Goal: Adequate for discharge Outcome: Progressing as expected Goal: Effective communication Outcome: Progressing as expected Problem: Falls, Risk of Goal: Absence of falls Outcome: Progressing as expected Problem: Glucose Control - Initiated in Adult CC Goal: Glucose level within specified parameters Outcome: Progressing as expected Problem: Infection, Risk of or Actual Goal: Absence of infection Outcome: Progressing as expected Problem: Mental Status - Impaired, Risk of Goal: Mental status restored to baseline Outcome: Progressing as expected Goal: Absence of physical injury Outcome: Progressing as expected Problem: Pain Goal: Control of pain at or below patient's documented comfort goal Outcome: Progressing as expected Goal: Reduction in pain sensation Outcome: Progressing as expected Problem: Skin integrity Impaired (Risk or Actual) Goal: Wound healing Outcome: Progressing as expected Goal: Prevention of new skin breakdown Outcome: Progressing as expected Problem: Bleeding, Risk of Goal: Absence of impaired coagulation signs and symptoms Outcome: Progressing as expected Goal: Absence of active bleeding Outcome: Progressing as expected Re Mejias RN [facility] 2024-01-27 11:43:45 Name/ MRN / Age / Gender: Jazz Camargo, [id number] 79 year old female BMI: Estimated body mass index is 19.64 kg/m? as calculated from the following: Height as of 01/18/24: 1.676 m (5' 6"). Weight as of this encounter: 55.2 kg (121 lb 11.1 oz). Allergies: Morphine Last Vitals: BP Readings from Last 1 Encounters: 01/27/24 (!) 190/82 Pulse Readings from Last 1 Encounters: 01/27/24 55 SpO2 Readings from Last 1 Encounters: 01/27/24 96% Date of Surgery: 01/28/2024 Surgeon: Radha Lozano MD Procedure: HIP HEMIARTHROPLASTY (Right: Leg) OR Location: [facility] LOCATION Anesthesia Preop Eval (physical exam) Copied forward and updated from: 01/27/24 Anesthesia Preop: Chart Review and [id number] Communication: Ortho note 01/27/24 Previous plan for right hemiarthroplasty 01/26 Will instead plan for tomorrow morning 01/27 due to neuro / NSGY request for 24h strict permission hypertension. 79 y/o F with PMH of HTN, hypothyroidism, collagenous collitis. Presenting after a fall from stroke for emergent neuro activation for possible thrombectomy vs angiogram. Patient also noted to have wound in RUE and right hip fracture after fall. Patient AMS, consent obtained from spouse. ED note 01/27/24 Jazz Camargo is a 79 year old female with PMH of HTN presenting to the ED as a stroke and trauma activation. On initial examination, concern for RT sided stroke. Patient initially noted to have RT MCA occlusion. Neurosurgery at bedside and discussion for TNK. However given trauma activation and examination findings concerning for hip fracture. Trauma protocol was performed and patient was noted to have RT femoral neck fracture. Orthopedic surgery was consulted and dionisio hip protocol was ordered. Neurology considered TNK however given hip fracture concern for bleeding. On re-evaluation, patient was noted to be back to baseline prior to administration of TNK. Patient will be admitted to ICU for further workup and management of symptoms. PONV Risk Factors: female Anesthesia History Anesthesia History Negative Comments: 01/27/24 IR ANGIOGRAM CEREBRAL Julian Caicedo MD 3E 11/29/23 PHACOEMULSIFICATION OF CATARACT WITH INTRAOCULAR LENS IMPLANT (Right: Eye) Melva Torrez, DO 10/25/23 PHACOEMULSIFICATION OF CATARACT WITH INTRAOCULAR LENS IMPLANT (Left: Eye) Belen Loredo MD 07/12/23 UPPER ULTRASOUND (Abdomen); ESOPHAGOGASTRODUODENOSCOPY (Mouth) Pantera Springer MD 04/08/22 EXCISION HEPATOPANCREATIC AMPULLA (Abdomen) Galo Dc MD 3 03/03/22 PROCEDURE ABORTED (Abdomen) Alyson Franklin MD Case cancelled in OR, Hypertension 3 02/21/22 ENDOSCOPIC RETROGRADE CHOLANGIOPANCRETOGRAPHY (Esophagus) Pantera Springer MD 3 12/22/21 ENDOSCOPIC RETROGRADE CHOLANGIOPANCRETOGRAPHY (canceled) 3 11/19/21 ESOPHAGOGASTRODUODENOSCOPY (Mouth); UPPER ULTRASOUND (Mouth) Pantera Springer MD 3 (-) Hx of anesthetic complications (-) Hx of PONV (-) Hx of malignant hyperthermia (-) Pt reports no hx of difficult airway Previous Anesthetics/Airways Date of anesthetic: 04/08/2022 DL x: 1 Grade View: I ETT size: 7.0 Blade used: MAC4 Cardiovascular Comments: No additional cardiology results in [facility] as of 01/27/24 BP Readings from Last 4 Encounters: 01/27/24 : (!) 188/91 01/18/24 : (!) 144/80 01/02/24 : (!) 158/78 11/29/23 : (!) 176/93 TTE 01/27/24 Interpretation Summary ? Left Ventricle: Left ventricle size is normal. Mildly increased wall thickness. Mild global hypokinesis present. Mildly reduced systolic function with a visually estimated EF of 40 - 45%. There is grade 1 diastolic dysfunction. GLS is reduced at -10% ? Right Ventricle: Right ventricle size is normal. Normal systolic function. RVFWLS is -27% ? Left Atrium: Left atrium is severely dilated. Left atrium volume index is 69.7 mL/m2. LA Strain is 12% Small ammount of bubbles crossing within 5 beats suggestive of small cardiac shunt. ? Aorta: Mildly enlarged annulus, measures 3.5 cm and index 2.1 cm/m2 ? Pericardium: Small pericardial effusion present. Addendum-March 30, 2022-nuclear stress test showed no reversible ischemia. Echocardiogram showed normal ejection fraction. Low to intermediate cardiac risk. 03/29/2022 Exercise Stress Test ECG INTERPRETATION: 1. RESTING ECG: Normal Sinus Rhythm IRBBB 2. PHARMACOLOGIC\\STRESS ECG: Normal Sinus Rhythm IRBBB 3. ARRHYTHMIA: none 4. COMMENTS: Lexiscan protocol SUMMARY: SYMPTOMS - No clinical symptoms suggesting ischemia. HEMODYNAMIC RESPONSE - Normal STRESS ECG - Negative for ischemia 03/24/2022 TTE ? Left Ventricle: Left ventricle size is normal. Normal wall thickness. Normal wall motion. Normal systolic function with a visually estimated EF of 55 - 60%. Average Global strain: -15.4%. There is impaired relaxation. ? Right Ventricle: Normal systolic function. ? Tricuspid Valve: Trace transvalvular regurgitation. Insufficient regurgant jet to estimate RVSP. RA pressure is 0-5 mmHg. ? Left Atrium: Left atrium is mildly dilated. ? Aortic Valve: Trace transvalvular regurgitation. ? Aorta: Borderline enlarged ascending aorta 3.18cm. 03/11/2022 Cardiology OV for preop cardiac eval 2 episodes of atypical chest pain, non exertional. Uncontrolled bp. Send for echo and lexiscan. 03/03/2022 EKG HR 56 Sinus bradycardia Left axis deviation Incomplete right bundle branch block Nonspecific ST abnormality Abnormal ECG (-) Chest pain with 1-2 flights of stairs (+) Hypertension and poorly controlled (+) Hx of cardiac stress test (-) Hx of cardiac cath (-) Angina/Chest Pain Within Last Year (-) Patient does not report prior ID (-) CAD (-) Valvular problems/murmurs (-) Dysrhythmias (-) Pt reports prior cardiac surgery (-) No cardiovascular devices present (-) CHF Pulmonary (-) Patient does not report snoring or stopping breathing during sleep (-) Home O2 (-) COPD (-) Asthma (+) Tobacco use (+) Cigarette use (-) Recent bronchitis or URI Neuro/Musculoskeletal Negative Neuro/Musculosketal ROS (-) CVA(-) Seizures (-) Neuromuscular Disease GI/Hepatic Comments: Hx of: Gastric ulcer, stacia class III, w/ mass effect; 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 Requesting adhesive remover and limited tape. 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 Hold on DOS. Phentermine: Alert [facility] anesthesiologist SGLT2 Inhibitors: "gliflozins" to be held for 3 days prior to elective surgeries GLP1 Agonosit: stop 7 days prior to surgery MAC Cases: Continue taking SILVIO inhibitors and ARBs ASA Classification ASA: 4 ASA Comments: Patient Active Problem List: Colitis Ampullary adenoma Ampulla of Vater mass Gastric ulcer without hemorrhage or perforation, unspecified chronicity Dilation of biliary tract Left acute arterial ischemic stroke, MCA (middle cerebral artery) Cerebrovascular accident (CVA), unspecified mechanism Closed displaced fracture of right femoral neck Labs: Chemistry 01/27/2024 CBC 01/27/2024 132 (L) 101 14 148 (H) 9.22 10.3 (L) 294 3.5 24 0.64 30.2 (L) eGFR: 91.2 Date: 01/27/2024 ANC: - Date: - LFTs - Coags AST: - AP: - Prot: - Ca: 8.4 (L) PT: 10.5 Date: 01/27/2024 ALT: - T Hawk: - Alb: - PTT: 30 Date: 01/27/2024 PO4: - Date: - INR: 0.9 Date: 01/27/2024 Cardiac Endocrine & other pBNP: 3,160 (H) Date: 01/27/2024 A1C: 5.0 Date: 01/27/2024 Trop I: 0.014 Date: 01/27/2024 POCT A1C: - Date: - CK: - Date: - TSH: - Date: - CKMB: - Date: - FT4: - Date: - LDL: 33 Date: 01/27/2024 Lact: 1.72 Date: 01/27/2024 Procal: - Date: - Respiratory -|-|-|-|- D-dimer: - ABG Date: - Date: - Miscellaneous Type and Screen: O Positive Antibody: Negative Date: 01/27/2024 POCT : - Date: - Current Medications: No outpatient medications have been marked as taking for the 01/27/24 encounter (Hospital Encounter). Previous Surgeries: Past Surgical History: Procedure Laterality Date APPENDECTOMY ENDOSCOPIC RETROGRADE CHOLANGIOPANCRETOGRAPHY N/A 02/21/2022 Surgeon: Christos Denny MD; Location: ENDOSCOPY ([facility]) OR LOCATION ESOPHAGOGASTRODUODENOSCOPY N/A 11/19/2021 Surgeon: Abiodun Shah MD; Location: ENDOSCOPY ([facility]) OR LOCATION ESOPHAGOGASTRODUODENOSCOPY N/A 07/12/2023 Surgeon: Christos Denny MD; Location: ENDOSCOPY ([facility]) OR LOCATION EXCISION HEPATOPANCREATIC AMPULLA ([facility]) N/A 04/08/2022 Surgeon: Erasmo Tovar MD; Location: [facility] OR LOCATION PHACOEMULSIFICATION OF CATARACT WITH INTRAOCULAR LENS IMPLANT Left 10/25/2023 Surgeon: Rajiv Rudolph MD; Location: [facility] OR LOCATION PHACOEMULSIFICATION OF CATARACT WITH INTRAOCULAR LENS IMPLANT Right 11/29/2023 Surgeon: Rajiv Rudolph MD; Location: [facility] OR LOCATION UPPER ULTRASOUND ([facility]) N/A 11/19/2021 Surgeon: Abiodun Shah MD; Location: ENDOSCOPY ([facility]) OR LOCATION UPPER ULTRASOUND ([facility]X) N/A 07/12/2023 Surgeon: Christos Denny MD; Location: ENDOSCOPY ([facility]) OR LOCATION Anesthesia Physical Exam General alert and oriented x 3 Neuro/Psych Dental Abdominal Airway Mallampati score:I TM distance:> 5 cm Neck ROM: full Mouth opening:normal (+) Normal facies Extremity Pulmonary Other Cardiovascular Anesthesia Plan ASA Status: 4 Plan discussed during pre-op evaluation: General Anesthetic plan on DOS: General Plan to include: IV induction, ETT and arterial line Anesthesia plan discussed with: patient or environmental marketing representative Post-Operative Analgesia: routine analgesia & antiemetics and nerve block for post-op analgesia Recovery Plan: PACU Additional comments: [facility] 2024-01-27 07:57:03 Problem: Falls, Risk of Goal: Absence of falls Outcome: Progressing as expected Problem: Discharge Planning Goal: Adequate for discharge Outcome: Progressing as expected Goal: Effective communication Outcome: Progressing as expected Problem: Falls, Risk of Goal: Absence of falls Outcome: Progressing as expected Problem: Glucose Control - Initiated in Adult CC Goal: Glucose level within specified parameters Outcome: Progressing as expected Problem: Infection, Risk of or Actual Goal: Absence of infection Outcome: Progressing as expected Problem: Mental Status - Impaired, Risk of Goal: Mental status restored to baseline Outcome: Progressing as expected Goal: Absence of physical injury Outcome: Progressing as expected Problem: Pain Goal: Control of pain at or below patient's documented comfort goal Outcome: Progressing as expected Goal: Reduction in pain sensation Outcome: Progressing as expected Problem: Skin integrity Impaired (Risk or Actual) Goal: Wound healing Outcome: Progressing as expected Goal: Prevention of new skin breakdown Outcome: Progressing as expected Problem: Bleeding, Risk of Goal: Absence of impaired coagulation signs and symptoms Outcome: Progressing as expected Goal: Absence of active bleeding Outcome: Progressing as expected [facility] 2024-01-27 02:35:20 Pt transported to IR with this RN monitoring vital signs and pt condition, bedside report given to Stanley RN. No TNK given, as stated before. Nino Zimmer RN [facility] 2024-01-27 02:13:41 Patient to IR with neuro and ED RN. Anitha Welch RN [facility] 2024-01-27 02:04:31 TNK NOT GIVEN DUE TO HTN T [facility] 2024-01-27 01:40:30 Ortho and neurosurgery at bedside T [facility] 2024-01-27 01:33:05 Per neuro resident: hold on TNK again [facility] 2024-01-27 01:32:02 Per Neuro, now give TNK. [facility] 2024-01-27 01:30:42 PT has marked improvement (see neuro assessment) in her neuro assessment. Neuro at bedside, states to hold TNK at this time. [facility] 2024-01-27 01:22:47 Per Neuro resident: pt to receive TNK after consenting with . [facility] 2024-01-27 01:16:[address] to ER 102 [facility] 2024-01-27 01:06:[address] scan [facility] 2024-01-27 01:06:22 Neuro in family room speaking with patients . [facility] 2024-01-27 00:38:39 Xray at bedside [facility] 2024-01-27 00:28:29 PT return to ER room 102 [facility] 2024-01-27 00:17:[address] for perfusion. Placed on 2 lpm via NC due to SpO2 89% room air. Now 93% [facility] hospital 2024-01-27 00:14:58 Jazz Camargo is a 79 year old female who [facility] as a CODE STROKE LKW 2230. Pt had witnessed fall from standing, AMS and right sided weakness. PT arrives GCS 10, see neuro focused assessment. Right lower extremity is shortened and rotated. Pt arrives in C-collar. Pt immediately to ER CT with ED MD, RN, and neuro resident at bedside. [facility] 2024-01-27 00:06:[address] with MD Meraz and ED RN. [facility] 2024-01-27 00:05:00 Jazz Camargo is a 79 year old female who presents to the ER via life flight team as a STROKE activation. Per report patient OPERATIONS LOGISTICS ANALYST was 01/26/24 at 2230. Family reported to EMS that patent fell, reports head strike and probable LOC. Initial EMS on scene reported R side facial droop and right sided arm and leg weakness. BGL on scene 135. GCS 11. Patient presents with c collar in place. MD Meraz at trauma desk assessing patient. [facility] 2024-01-27 00:03:00 [facility] Emergency Department Note Patient Name: Jazz Camargo Date of : 1945 79 year old female Treatment Room: [place] [id number]/[id number] Primary Care Physician: Kale Simmons Patient Escorted by: Self [9] Mode of Arrival: Air EMS - [facility] [15] EMS Treatment Prior to ED Arrival: PRICK STITCHER treatment: None Travel and Exposure Screening: Symptoms Does patient have any of these symptoms?: (not recorded) Exposure Screening Has patient had contact with someone with a communicable disease in the last month?: (not recorded) Diseases exposed to:: (not recorded) Is Patient ?: (not recorded) Exposure Date: (not recorded) Chief Complaint: Chief Complaint Patient presents with STROKE History of Present Illness: Jazz Camargo is a 79 year old female with PMH of HTN presenting to the ED as a stroke and trauma activation. Patient was brought to the ED by helicopter after she had a fall from standing. Patient was noted to be altered following. Unknown loss of consciousness. Last known normal 2300. Fall was witnessed by family who are unsure if the patient hit her head. Patient noted to have weakness/deficits on the right side of her body. GCS 11. History provided by: EMS personnel History limited by: Acuity of condition, mental status change and patient unresponsive Past Medical History/Immunizations: Past Medical History: Diagnosis Date Collagenous colitis HTN (hypertension) Tetanus received in last 5 years: Unable to assess Childhood immunizations: Other (comment) Allergies: Allergies Allergen Reactions Morphine Other - See comments Feel "Jittery and displaced" Past Social History: Tobacco Use Every Day; 1 pack/day; Smoked an average of 1 pack/day for 40.0 years; Types: Cigarettes Smokeless Tobacco: Never used smokeless tobacco. Past Surgical History: Past Surgical History: Procedure Laterality Date APPENDECTOMY ENDOSCOPIC RETROGRADE CHOLANGIOPANCRETOGRAPHY N/A 02/21/2022 Surgeon: Christos Denny MD; Location: ENDOSCOPY ([facility]) OR LOCATION ESOPHAGOGASTRODUODENOSCOPY N/A 11/19/2021 Surgeon: Abiodun Shah MD; Location: ENDOSCOPY ([facility]) OR LOCATION ESOPHAGOGASTRODUODENOSCOPY N/A 07/12/2023 Surgeon: Christos Denny MD; Location: ENDOSCOPY ([facility]) OR LOCATION EXCISION HEPATOPANCREATIC AMPULLA ([facility]X) N/A 04/08/2022 Surgeon: Erasmo Tovar MD; Location: [facility] OR LOCATION PHACOEMULSIFICATION OF CATARACT WITH INTRAOCULAR LENS IMPLANT Left 10/25/2023 Surgeon: Rajiv Rudolph MD; Location: [facility] OR LOCATION PHACOEMULSIFICATION OF CATARACT WITH INTRAOCULAR LENS IMPLANT Right 11/29/2023 Surgeon: Rajiv Rudolph MD; Location: [facility] OR LOCATION UPPER ULTRASOUND ([facility]X) N/A 11/19/2021 Surgeon: Abiodun Shah MD; Location: ENDOSCOPY ([facility]) OR LOCATION UPPER ULTRASOUND (SHX) N/A 07/12/2023 Surgeon: Christos Denny MD; Location: ENDOSCOPY ([facility]) OR LOCATION Review of Systems: Review of Systems Unable to perform ROS Physical Exam: ED Triage Vitals [01/27/24 0005] Weight 55 kg (121 lb 4.1 oz) Actual or estimated Estimated by healthcare provider Height BP (!) 216/88 Pulse 60 Resp 22 Temp 35.9 ?C (96.7 ?F) Temp source Axillary SpO2 96 % Measured on On oxygen Physical Exam Constitutional: Appearance: She is underweight. She is ill-appearing. HENT: Head: Normocephalic. Nose: Nose normal. Eyes: General: Right eye: No discharge. Left eye: No discharge. Conjunctiva/sclera: Conjunctivae normal. Comments: Leftward gaze b/l Cardiovascular: Rate and Rhythm: Normal rate. Pulmonary: Effort: Pulmonary effort is normal. Abdominal: General: Abdomen is flat. Musculoskeletal: General: Deformity (RLE externally rotated and shortened compared with rigth) present. Skin: General: Skin is warm. Capillary Refill: Capillary refill takes less than 2 seconds. Neurological: Mental Status: She is confused. GCS: GCS eye subscore is 4. GCS verbal subscore is 4. GCS motor subscore is 3. Cranial Nerves: Cranial nerve deficit present. Motor: Weakness (right sided weakness; unable to lift RLE against gravity.) present. Comments: Unable to perform full neurologic exam due to poor patient cooperation, patient does not follow commands Radiology: IR ANGIOGRAM CEREBRAL Final Result Examination:Diagnostic cerebral angiogram Date of procedure 01/27/2024 Operators:Dr. John Magaña Indication: Acute stroke Consent: The patient was given a full and complete explanation of the procedure including the risks, benefits, and possible complications which include but are not limited to vessel injury, vessel rupture, stroke, infection, coma and , and may include additional procedures. Patient understood and wished to proceed. Anesthesia: Conscious sedation and local infiltration of the right wrist using subcutaneous and subcuticular injection of 1% lidocaine. Procedure: The patient was brought into the biplane high resolution angiography suite and placed supine on the table. After prepping and draping both the right radial femoral regions in the usual sterile fashion, a 21-gauge Cook micro puncture needle was used to puncture the right radial artery and after brisk return of arterial blood, a 0.018 inch wire was threaded via the needle, after the needle was withdrawn a 4-Palauan vascular sheath was then advanced over the wire and connected to a pressurized arterial saline bag infusing 4 units heparin/ML. A 4-Palauan Rand 2 catheter, was then advanced over a 0.035 inch ResponseTap (formerly [employer])umT-System Glidewire and the catheter was used to select the following arteries followed by biplane image acquisition of the same: Vessels catheterized: - Right Common Carotid Artery - Right Subclavian Artery (Selection of the vessel followed by single image acquisition of the same), - Right Vertebral Artery - Left Common Carotid Artery - Left Subclavian Artery (Selection of the vessel followed by single image acquisition of the same), - Left Vertebral Artery Vessels imaged: Right common carotid artery, cervical, oblique AP, lateral Right internal carotid artery, intracranial, AP, lateral Right internal carotid artery, intracranial, biplane oblique Right external carotid artery, intracranial, biplane, AP, lateral Left common carotid artery, cervical, oblique AP and lateral Left internal carotid artery, intracranial, AP, lateral Left internal carotid artery, intracranial, biplane oblique Left external carotid artery, intracranial, biplane, AP, lateral Right vertebral artery, intracranial, AP, lateral Left vertebral artery, intracranial, AP, lateral 3-D rotational angiography acquisitions were performed of the right vertebral artery. These 3-D acquisitions were then transferred, reconstructed and analyzed on independent computer workstation. The catheter was removed from the patient and images were reviewed. The right radial artery arterial sheath was then removed and wrist hemostasis was achieved by compression band. Patient tolerated the procedure well without complications. Findings were discussed with the patient, his family and the referring physicians. Findings: - Right Common Carotid Artery: Carotid bifurcation is widely patent. There is no carotid stenosis. Cervical ICA is normal. - Right Internal Carotid Artery: Normal appearance of the petrous, cavernous and supraclinoid internal carotid arteries. The carotid terminus, anterior and middle cerebral arteries are normal. Anterior communicating artery is demonstrated well and is normal in appearance. Right External Carotid Artery: Normal anatomy and no evidence of arteriovenous shunting or dural fistulization. - Left Common Carotid Artery: Carotid bifurcation is normal. No evidence of carotid stenosis. Cervical ICA is normal. - Left Internal Carotid Artery: Normal appearance of the petrous, cavernous and supraclinoid internal carotid arteries. There is a distal M4 occlusion in a left temporal branch. The previously seen left M1 thrombus is resolved. - Left External Carotid Artery: Normal anatomy and no evidence of arteriovenous shunting or dural fistulization. - Right Subclavian Artery: Normal anatomy with no evidence of stenosis or dissection. The origin of the right vertebral artery is normal without stenosis. - Right Vertebral Artery: Normal course in the cervical segment. Intracranial images do not demonstrate any evidence of intracranial aneurysm, arteriovenous shunting or intracranial stenosis. Slight dilatation of the left SCA origin. - Left Subclavian Artery: Normal anatomy with no evidence of stenosis or dissection. The origin of the left vertebral artery is normal, without stenosis. - Left Vertebral Artery: Normal course in the cervical segment. Intracranial images do not show any evidence of intracranial aneurysm, arteriovenous shunting or intracranial stenosis. Slight dilatation of the left SCA origin. IMPRESSION Impression: Distal left M4 thrombus from the temporal division. The previously seen left M1 thrombus is resolved. CT ABDOMEN PELVIS WO CONTRAST Final Result Ordering physician: LEYLA MERAZ Indication: Blunt abdominal trauma COMPARISON: CT of the abdomen and pelvis dated 01/22/2024 TECHNIQUE: Axial images of the abdomen and pelvis were performed without the administration of intravenous contrast material. Images were reformatted in the coronal and sagittal plane. CT scan was performed according to ALARA (as low as reasonably achievable) policy. FINDINGS: There is mild dependent atelectasis in the lung bases. The heart is enlarged, with prominent mitral valve calcification. There is stable central pneumobilia in the liver. The patient is status post cholecystectomy. There is a calcified granuloma in the spleen. There are bilateral adrenal nodules, benign by density. There is stable diffuse prominence of the main pancreatic duct. There is excreted contrast material in the kidneys and urinary bladder bilaterally, without hydronephrosis. There is marked diffuse atherosclerotic calcification of the aorta without significant aneurysmal dilatation. There is severe stenosis in the right common iliac artery related to calcific plaque. There is no free fluid in the pelvis. There is a stable cystic focus in the right adnexa, measuring 5.2 cm (series 5, image 86). There is no bowel obstruction. There are scattered colonic diverticula without evidence for acute diverticulitis. The appendix is not separately identified. There is a subcapital fracture of right femur (series 5, image 98). There is dextroconvex scoliosis of the lumbar spine. The urinary bladder is moderately distended. IMPRESSION Acute subcapital fracture of the right femur, new compared to prior CT of 01/22/2024 Cardiomegaly with prominent mitral valve calcification. Status post cholecystectomy. Stable pneumobilia in the central liver. Stable diffuse dilatation of the main pancreatic duct. 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 Stable cystic focus in the right adnexa, measuring 5.2 cm. Dextroconvex scoliosis of the lumbar spine. RL: 460 AF: [id number] THORAX WO CONTRAST Final Result Ordering physician: LEYLA MERAZ INDICATION: Blunt chest trauma COMPARISON: Chest dated 01/27/2024 TECHNIQUE: Axial images of the chest were performed without administration of intravenous contrast. Images were reformatted in the coronal and sagittal plane. CT scan was performed according to ALARA (as low as reasonably achievable) policy. FINDINGS: The visualized thyroid gland is within normal limits. No thoracic aortic aneurysm is appreciated. There is calcific plaque in the transverse and descending thoracic aorta. The heart is enlarged without pericardial effusion. There is prominent coronary arteriosclerosis and mitral valve calcification. There are calcified right hilar lymph nodes. No acute pulmonary process is appreciated. There is mild centrilobular emphysema. There is a calcified granuloma in the superior segment of the right lower lobe. There is age indeterminate superior endplate compression deformity of T8 (series 602, image 66). IMPRESSION No definite noncontrast CT evidence for acute trauma to the chest. There is an age indeterminate superior endplate compression fracture of T8, with 30% vertebral body height loss and no bony retropulsion. Cardiomegaly with prominent coronary arteriosclerosis and mitral valve calcification. Evidence for prior granulomatous disease. RL: 460 AF: [id number] X-ray chest 1 view Final Result Exam: XR CHEST 1 VW, 01/27/2024 1:00 AM. Ordering Physician: LEYLA MERAZ. History: Pre op . Technique: One view of the chest. Comparison: Chest radiograph 04/12/2022. Findings: No focal consolidation. No pneumothorax or effusion. Cardiac enlargement, possibly technique. Gastric calcifications. No acute osseous finding on this single view. IMPRESSION Impression: No acute cardiopulmonary finding. RL: [id number] End of Report HIPS 2 VW RIGHT Preliminary Result EXAM: XR HIPS 2 VW RIGHT HISTORY: fall/trauma COMPARISON: None FINDINGS: Radiographs of the right hip demonstrate mildly displaced transcervical fracture of the right femoral neck. Marginal osteophytosis, subchondral sclerosis and moderate joint space narrowing involving the bilateral hip joints. A scar calcification is seen. Spondylitic changes of the lower spine. IMPRESSION Right femoral neck fracture. Preliminary Report Dictated by Resident: Tiffany Rondon CT STROKE PERFUSION W CONTRAST Preliminary Result CT STROKE ANGIOGRAM HEAD, CT STROKE PERFUSION W CONTRAST, CT STROKE ANGIOGRAM NECK HISTORY: 79 years-old; Female; Neuro deficit, acute, stroke suspected Rad: please obtain POCT creatinine prior to CTA head/neck TECHNIQUE: CTA of the head and neck with coronal, sagittal reformats, and MIPS reconstruction was performed. COMPARISON: None FINDINGS: CTA NECK: Aortic arch and arch vessel origins: Standard three- vessel aortic arch. The ostia of the great neck vessels are free of significant stenosis. Innominate and subclavian arteries: innominate and subclavian arteries are patent with normal course. Common and internal cervical carotids: Calcified and noncalcified atherosclerotic of the bilateral common carotid /carotid bulbs resulting in mild to stenosis bilaterally. Tortuosity and beading of the mid bilateral cervical ICA represent FMD. Vertebral arteries: the vertebral arteries originate normally from the subclavian arteries and are patent along their course. Right vertebral artery is dominant. Scattered calcification at the ostium of the left vertebral artery resulting in moderate stenosis. Cervical soft tissues: Unremarkable. Lung apices: Calcified granuloma in the right lung. Hilar nodes calcification. Emphysematous changes of the lung. Cervical spine: No acute bony abnormality. CTA HEAD: The PICA origin is visualized bilaterally. The basilar artery is normal in caliber. The superior cerebellar arteries are unremarkable. The posterior cerebral arteries are unremarkable. Left MANAGER PLANT origin is seen. The petrous internal carotid arteries are unremarkable. Atherosclerotic calcification of the bilateral cavernous and supraclinoid internal carotid arteries resulting in mild to stenosis on the left and moderate stenosis on the right. The anterior and right middle cerebral arteries are unremarkable. There is a 5 mm filling defect involving the distal aspect of the left M1 segment (7:149) with reconstitution distally. Moderate focal stenosis is seen in the superior branch of the left M2 segment. An anterior communicating artery is visualized. The dural venous sinuses are grossly patent noted. CT Perfusion: FINDINGS: Ischemic penumbra involving the left of MCA territory. Core volume (CBF < 30%) 2 mL, territory at risk (Transit time > 6.0 s) 64 mL, with mismatch volume 62 mL, and a mismatch ratio of 32. IMPRESSION Left distal M1 segment thrombosis. Mild to moderate multifocal atherosclerotic disease is as detailed above. Perfusion deficit involving the left MCA territory with infarct core volume of 2 mL, mismatch volume of 62 mL and mismatch ratio of 32 mL. If there is clinical concern for cervical spine fracture dedicated CT cervical spine is recommended. The findings of this study have been discussed with and acknowledged by Dr. Lama over the phone on 01/27/2024 at 12:40 AM with readback. Preliminary Report Dictated by Resident: Tiffany Rondon CT ACUTE STROKE ANGIOGRAM HEAD Preliminary Result CT STROKE ANGIOGRAM HEAD, CT STROKE PERFUSION W CONTRAST, CT STROKE ANGIOGRAM NECK HISTORY: 79 years-old; Female; Neuro deficit, acute, stroke suspected Rad: please obtain POCT creatinine prior to CTA head/neck TECHNIQUE: CTA of the head and neck with coronal, sagittal reformats, and MIPS reconstruction was performed. COMPARISON: None FINDINGS: CTA NECK: Aortic arch and arch vessel origins: Standard three- vessel aortic arch. The ostia of the great neck vessels are free of significant stenosis. Innominate and subclavian arteries: innominate and subclavian arteries are patent with normal course. Common and internal cervical carotids: Calcified and noncalcified atherosclerotic of the bilateral common carotid /carotid bulbs resulting in mild to stenosis bilaterally. Tortuosity and beading of the mid bilateral cervical ICA represent FMD. Vertebral arteries: the vertebral arteries originate normally from the subclavian arteries and are patent along their course. Right vertebral artery is dominant. Scattered calcification at the ostium of the left vertebral artery resulting in moderate stenosis. Cervical soft tissues: Unremarkable. Lung apices: Calcified granuloma in the right lung. Hilar nodes calcification. Emphysematous changes of the lung. Cervical spine: No acute bony abnormality. CTA HEAD: The PICA origin is visualized bilaterally. The basilar artery is normal in caliber. The superior cerebellar arteries are unremarkable. The posterior cerebral arteries are unremarkable. Left MANAGER [employer]ANT origin is seen. The petrous internal carotid arteries are unremarkable. Atherosclerotic calcification of the bilateral cavernous and supraclinoid internal carotid arteries resulting in mild to stenosis on the left and moderate stenosis on the right. The anterior and right middle cerebral arteries are unremarkable. There is a 5 mm filling defect involving the distal aspect of the left M1 segment (7:149) with reconstitution distally. Moderate focal stenosis is seen in the superior branch of the left M2 segment. An anterior communicating artery is visualized. The dural venous sinuses are grossly patent noted. CT Perfusion: FINDINGS: Ischemic penumbra involving the left of MCA territory. Core volume (CBF < 30%) 2 mL, territory at risk (Transit time > 6.0 s) 64 mL, with mismatch volume 62 mL, and a mismatch ratio of 32. IMPRESSION Left distal M1 segment thrombosis. Mild to moderate multifocal atherosclerotic disease is as detailed above. Perfusion deficit involving the left MCA territory with infarct core volume of 2 mL, mismatch volume of 62 mL and mismatch ratio of 32 mL. If there is clinical concern for cervical spine fracture dedicated CT cervical spine is recommended. The findings of this study have been discussed with and acknowledged by Dr. Lama over the phone on 01/27/2024 at 12:40 AM with readback. Preliminary Report Dictated by Resident: Tiffany Rondon CT ACUTE STROKE ANGIOGRAM NECK Preliminary Result CT STROKE ANGIOGRAM HEAD, CT STROKE PERFUSION W CONTRAST, CT STROKE ANGIOGRAM NECK HISTORY: 79 years-old; Female; Neuro deficit, acute, stroke suspected Rad: please obtain POCT creatinine prior to CTA head/neck TECHNIQUE: CTA of the head and neck with coronal, sagittal reformats, and MIPS reconstruction was performed. COMPARISON: None FINDINGS: CTA NECK: Aortic arch and arch vessel origins: Standard three- vessel aortic arch. The ostia of the great neck vessels are free of significant stenosis. Innominate and subclavian arteries: innominate and subclavian arteries are patent with normal course. Common and internal cervical carotids: Calcified and noncalcified atherosclerotic of the bilateral common carotid /carotid bulbs resulting in mild to stenosis bilaterally. Tortuosity and beading of the mid bilateral cervical ICA represent FMD. Vertebral arteries: the vertebral arteries originate normally from the subclavian arteries and are patent along their course. Right vertebral artery is dominant. Scattered calcification at the ostium of the left vertebral artery resulting in moderate stenosis. Cervical soft tissues: Unremarkable. Lung apices: Calcified granuloma in the right lung. Hilar nodes calcification. Emphysematous changes of the lung. Cervical spine: No acute bony abnormality. CTA HEAD: The PICA origin is visualized bilaterally. The basilar artery is normal in caliber. The superior cerebellar arteries are unremarkable. The posterior cerebral arteries are unremarkable. Left MANAGER PLANT origin is seen. The petrous internal carotid arteries are unremarkable. Atherosclerotic calcification of the bilateral cavernous and supraclinoid internal carotid arteries resulting in mild to stenosis on the left and moderate stenosis on the right. The anterior and right middle cerebral arteries are unremarkable. There is a 5 mm filling defect involving the distal aspect of the left M1 segment (7:149) with reconstitution distally. Moderate focal stenosis is seen in the superior branch of the left M2 segment. An anterior communicating artery is visualized. The dural venous sinuses are grossly patent noted. CT Perfusion: FINDINGS: Ischemic penumbra involving the left of MCA territory. Core volume (CBF < 30%) 2 mL, territory at risk (Transit time > 6.0 s) 64 mL, with mismatch volume 62 mL, and a mismatch ratio of 32. IMPRESSION Left distal M1 segment thrombosis. Mild to moderate multifocal atherosclerotic disease is as detailed above. Perfusion deficit involving the left MCA territory with infarct core volume of 2 mL, mismatch volume of 62 mL and mismatch ratio of 32 mL. If there is clinical concern for cervical spine fracture dedicated CT cervical spine is recommended. The findings of this study have been discussed with and acknowledged by Dr. Lama over the phone on 01/27/2024 at 12:40 AM with readback. Preliminary Report Dictated by Resident: Tiffany Rondon CT ACUTE STROKE HEAD WO CONTRAST Preliminary Result CT STROKE HEAD WO CONTRAST HISTORY: 79 years-old Female; Neuro deficit, acute, stroke suspected COMPARISON: 03/03/2022 TECHNIQUE: Axial CT of the head was performed. Coronal and sagittal reformatted images were generated. FINDINGS: The ventricles and cerebral sulci are normal in caliber and configuration. No hydrocephalus, midline shift or pathological extra-axial fluid collection is present. The basal cisterns are unremarkable. There is no acute intracranial hemorrhage or significant mass effect. Scattered periventricular and deep white matter hypodensities, nonspecific likely sequela of chronic microvascular ischemic changes. Hyperdense left MCA suspected (5:21). Questionable hypodensity involving the left MCA territory. The culver-white matter differentiation is otherwise preserved. The mastoid air cells and paranasal air sinuses are clear. The calvarium and central skull base are unremarkable. IMPRESSION Hyperdense left MCA is suspected. Questionable hypodensity involving the left MCA territory may represent acute infarct. Further evaluation with MRI is recommended. The findings of this study have been discussed with and acknowledged by Dr. Lama over the phone on 01/27/2024 at 7:40 AM with readback. Preliminary Report Dictated by Resident: Tiffany Rondon Lab Results: Lab Results POCT GLUCOSE(AGE >30DAYS) - Abnormal Result Value Ref Range POCT Glu (age>30days) 165 (*) 70 - 110 mg/dL CBC WITHOUT DIFF - Abnormal WBC 9.22 4.30 - 11.10 10*3/?L RBC 3.45 (*) 3.93 - 5.25 10*6/?L HGB 10.3 (*) 11.6 - 15.0 g/dL HCT 30.2 (*) 35.7 - 45.2 % MCH 29.9 25.9 - 32.8 pg MCV 87.5 80.6 - 95.5 fL MCHC 34.1 31.6 - 35.1 g/dL PLT 294 166 - 358 10*3/?L MPV 8.9 (*) 9.5 - 12.9 fL RDW-CV 18.0 (*) 12.0 - 15.5 % RDW-SD 57.0 (*) 39.0 - 49.9 fL NRBC x10 3 <0.01 10*3/?L NRBC/100 WBC 0.0 0.0 - 10.0 /100 WBCs IPF % BASIC METABOLIC PANEL (NA, K, CL, CO2, GLUCOSE, BUN, CREATININE, CA) - Abnormal NA 132 (*) 135 - 145 mmol/L K 3.5 3.5 - 5.0 mmol/L CL 101 98 - 108 mmol/L CO2 TOTAL 24 23 - 31 mmol/L AGAP 7 2 - 16 BUN 14 7 - 23 mg/dL GLUCOSE 148 (*) 70 - 110 mg/dL CREATININE 0.64 0.50 - 1.04 mg/dL CALCIUM 8.4 (*) 8.6 - 10.6 mg/dL eGFR 91.2 mL/min/1.73m2 POCT GLUCOSE (AUTOMATED) - Abnormal POCT GLU 165 (*) 70 - 110 mg/dL N-TERMINAL PRO-BNP - Abnormal NT-proBNP 3,160 (*) <=125 pg/mL LIPID PANEL (49799)(TOTAL CHOLESTEROL, TRIGLYCERIDES, HDL) - Abnormal CHOL 118 (*) 120 - 200 mg/dL HDL 47 (*) >50 mg/dL HDLC RATIO 2.5 <=4.5 TRIG 190 (*) 30 - 170 mg/dL LDL CHOL 33 <=160 mg/dL VLDL 38 5 - 60 mg/dL PROTHROMBIN TIME / INR - Normal PROTIME PATIENT 10.5 10.1 - 12.6 Seconds INR 0.9 ACTIVATED PARTIAL THRMPLAS DAVI - Normal APTT Patient 30 26 - 36 Seconds TROPONIN I - Normal TROPONIN I 0.014 <=0.034 ng/mL LACTIC ACID WHOLE BLOOD - Normal LACTIC ACID 1.72 0.50 - 2.20 mmol/L GLYCOSYLATED HEMOGLOBIN (A1C) - Normal HGB A1C 5.0 4.0 - 5.7 % URINALYSIS APPEARANCE Clear Clear COLOR Colorless Colorless, Other PH 7.0 4.0 - 8.0 SP GRAVITY 1.017 <=1.030 GLU U QUAL Normal Normal, 30 mg/dL, 50 mg/dL BLOOD Negative Negative KETONES Negative Negative, Trace PROTEIN Negative Negative, 10 mg/dL, 20 mg/dL UROBILIN Normal Normal BILIRUBIN Negative Negative NITRITE Negative Negative LEUK CARLITA Negative Negative, 25/uL RBC/HPF 3 0 - 3 HPF WBC/HPF 3 0 - 5 HPF BACTERIA Negative Negative SQ EPITH 1 HPF TYPE AND SCREEN IAT Negative ABORH INVESTIGATION ABO & RH O Positive MRSA / MSSA SCREEN BY PCR, NARES EKG: If EKG completed, see Procedure Note. Orders and Treatments: Orders Placed This Encounter Procedures CASE REQUEST: HIP HEMIARTHROPLASTY CT ACUTE STROKE HEAD WO CONTRAST CT ACUTE STROKE ANGIOGRAM HEAD CT ACUTE STROKE ANGIOGRAM NECK XR HIPS [address] STROKE PERFUSION W CONTRAST CT ABDOMEN PELVIS WO CONTRAST CT THORAX WO CONTRAST X-ray chest 1 view FL TIME OR (NON-REPORTABLE) MR STROKE BRAIN WO CONTRAST XR FEMUR 2 VW RIGHT IR ANGIOGRAM CEREBRAL POCT Glucose (Age >30 Days) - Code Stroke Prothrombin Time / INR - Code Stroke aPTT - Code Stroke CBC without Diff - Code Stroke Troponin I - Code Stroke Basic Metabolic Panel (NA, K, CL, CO2, Glucose, BUN, Creatinine, CA) - Code Stroke Urinalysis POCT GLUCOSE (AUTOMATED) N-Terminal PRO-BNP Lactic Acid Whole Blood Lactic Acid Whole Blood Type and Screen - ONCE STAT ABORH INVESTIGATION MRSA / MSSA Screen by PCR, Nares Fasting Lipd Panel (11174)(TOTAL CHOLESTEROL, TRIGLYCERIDES, HDL) Glycosyated Hemoglobin (A1C) Consult Orthopaedic Surgery: Consult Anesthesiology Consult Adult Physical Therapy - STROKE Patient Consult Adult Occupational Therapy - STROKE Patient Consult Speech Pathology - STROKE Patient Consult Individualized Education Plan Aide - STROKE Patient O2 Nasal Cannula Orders Placed This Encounter Medications NaCl 0.9% (NS) injection 5 mL iopamidol (ISOVUE 370-500 mL) injection 80 mL iopamidol (ISOVUE 370-500 mL) injection 50 mL DISCONTD: Tenecteplase (TNKASE) for Acute Ischemic Stroke Injection 13.8 mg labetaloL (NORMODYNE) 5 mg/mL injection 10 mg FENTanyl PF (SUBLIMAZE (PF)) injection 25 mcg niCARdipine (CARDENE I.V.) 40 mg in NaCL 200 mL (RTU) infusion levothyroxine (SYNTHROID) tablet 125 mcg NaCl 0.9% (NS) 1000 mL + KCL 20 mEq atorvastatin (LIPITOR) tablet 40 mg labetaloL (NORMODYNE) 5 mg/mL injection 10 mg heparin (porcine) injection 5,000 Units aspirin chewable tablet 81 mg Sliding Scale Insulin - Lispro (HumaLOG) heparin 1,000 unit/mL injection verapamiL (ISOPTIN) injection nitroglycerin 50 mg in D5W 250 mL infusion RTU lidocaine 1% (PF) (XYLOCAINE) injection aspirin tablet 325 mg clopidogreL (PLAVIX) 300 mg tablet 300 mg clopidogreL (PLAVIX) 75 mg tablet 75 mg acetaminophen (TYLENOL) tablet 650 mg iopamidol (ISOVUE 300-100 mL) injection 100 mL First Provider Eval: ED Events Date/Time Event User Comments 01/27/24 0010 Medical Screening Begins NOEMI LAMA -- 01/27/249 First Provider Evaluation NOEMI LAMA -- ED COURSE ED Course as of 01/27/248 Sat Jan 27, 202457 Ortho agrees to see patient [HH] 0054 Paged orthopedic surgery [HH] ED Course User Index [HH] Noemi Novak MD Diagnosis/Impression as of 01/27/24447 Cerebrovascular accident (CVA), unspecified mechanism Fall from standing, initial encounter Closed fracture of neck of right femur, initial encounter Procedures: Procedures MDM: Medical Decision Making Jazz Camargo is a 79 year old female with PMH of HTN presenting to the ED as a stroke and trauma activation. On initial examination, concern for RT sided stroke. Patient initially noted to have RT MCA occlusion. Neurosurgery at bedside and discussion for TNK. However given trauma activation and examination findings concerning for hip fracture. Trauma protocol was performed and patient was noted to have RT femoral neck fracture. Orthopedic surgery was consulted and dionisio hip protocol was ordered. Neurology considered TNK however given hip fracture concern for bleeding. On re-evaluation, patient was noted to be back to baseline prior to administration of TNK. Patient will be admitted to ICU for further workup and management of symptoms. Problems Addressed: Cerebrovascular accident (CVA), unspecified mechanism: acute illness or injury Closed fracture of neck of right femur, initial encounter: acute illness or injury Fall from standing, initial encounter: acute illness or injury Amount and/or Complexity of Data Reviewed Labs: ordered. Radiology: ordered. Discussion of management or test interpretation with external provider(s): Discussed patient with Dr. Arce, orthopedic surgery Discussed patient with Dr. Turner, neurology Risk Prescription drug management. Parenteral controlled substances. Decision regarding hospitalization. Flowsheet Documentation: Stroke Activation - Date: 01/27/24 Stroke Activation - Time: 5 Physician arrival at bedside - Date: 01/27/24 Physician arrival at bedside - Time: 9 CT-Head without contrast read by Neurology: 0020 Last known well - Date: 01/26/24 Last known well - Time: 2229 LOC: 0 Alert: Keenly Responsive LOC QUESTIONS: 0 Answers Both Questions Correctly LOC COMMANDS: 0 Performs Both Tasks Correctly BEST GAZE: 0 Normal VISUAL: 0 No Visual Loss FACIAL PALSY: 0 Normal MOTOR ARM-LEFT: 0 No Drift MOTOR ARM-RIGHT: 0 No Drift MOTOR LEG-LEFT: 0 No Drift MOTOR LEG-RIGHT: 3 No Effort Against [place] (due to pain, neck of femure fracture) LIMB ATAXIA: 0 Absent SENSORY: 0 Normal BEST LANGUAGE: 0 No Aphasia DYSARTHRIA: 0 Normal EXTINCTION AND INATTENTION (FORMERLY NEGLECT): 0 No Abnormalty STROKE SCALE TOTAL SCORE: 3 NIH STROKE SCALE LOC: 0 Alert: Keenly Responsive LOC QUESTIONS: 0 Answers Both Questions Correctly LOC COMMANDS: 0 Performs Both Tasks Correctly BEST GAZE: 0 Normal VISUAL: 0 No Visual Loss FACIAL PALSY: 0 Normal MOTOR ARM-LEFT: 0 No Drift MOTOR ARM-RIGHT: 0 No Drift MOTOR LEG-LEFT: 0 No Drift MOTOR LEG-RIGHT: 3 No Effort Against [place] (due to pain, neck of femure fracture) LIMB ATAXIA: 0 Absent SENSORY: 0 Normal BEST LANGUAGE: 0 No Aphasia DYSARTHRIA: 0 Normal EXTINCTION AND INATTENTION (FORMERLY NEGLECT): 0 No Abnormalty STROKE SCALE INTERVAL: Admission STROKE SCALE TOTAL SCORE: 3 STROKE SCALE INTERVAL: Admission STROKE SCALE TOTAL SCORE: 3 Reason no IV thrombolytic therapy initiated: Severe head trauma in previous 3 months Did patient and/or family agree to IV Thrombolytic?: No ICH/SAH: No Was Endovascular Intervention Performed?: Yes Scoring Tools: No data recorded Disposition/Condition: ED Disposition ED Disposition Admit - ICU Condition -- Comment -- Discharge Medications: Current Discharge Medication List STOP taking these medications vit C/E/zinc ox/sonia/lut/zeax (ICAPS AREDS2 ORAL) Comments: Reason for Stopping: BUDESONIDE ORAL Comments: Reason for Stopping: VITAMIN A ORAL Comments: Reason for Stopping: zinc sulfate (ZINC-220 ORAL) Comments: Reason for Stopping: [id number]-[id number] 12,000-38,000 -60,000 unit capsule Comments: Reason for Stopping: amLODIPine 5 mg tablet Comments: Reason for Stopping: cholestyramine 4 gram packet Comments: Reason for Stopping: hyoscyamine sulfate 0.125 mg sublingual tablet Comments: Reason for Stopping: levoFLOXacin 750 mg tablet Comments: Reason for Stopping: sucralfate 1 gram tablet Comments: Reason for Stopping: vancomycin 250 mg capsule Comments: Reason for Stopping: acetaminophen with codeine (TYLENOL-CODEINE #3 ORAL) Comments: Reason for Stopping: atorvastatin 20 mg tablet Comments: Reason for Stopping: losartan 25 mg tablet Comments: Reason for Stopping: methscopolamine 5 mg tablet Comments: Reason for Stopping: ondansetron (ZOFRAN) 4 mg tablet Comments: Reason for Stopping: ALPRAZolam (XANAX) 0.25 mg tablet Comments: Reason for Stopping: aspirin 81 mg chewable tablet Comments: Reason for Stopping: budesonide 3 mg 24 hr capsule Comments: Reason for Stopping: calcium/magnesium/zinc (RVRKPXR-SYESBPCZHA-TLUV) 333-133-5 mg Tab Comments: Reason for Stopping: carvediloL 25 mg tablet Comments: Reason for Stopping: Cholecalciferol, Vitamin D3, 125 mcg (5,000 unit) tablet Comments: Reason for Stopping: cyanocobalamin, vitamin B-12, (VITAMIN B-12) 5,000 mcg/mL Drop Comments: Reason for Stopping: hydrALAZINE 50 mg tablet Comments: Reason for Stopping: Levothyroxine 112 mcg capsule Comments: Reason for Stopping: mesalamine 1.2 gram EC tablet Comments: Reason for Stopping: omeprazole 20 mg capsule Comments: Reason for Stopping: Follow-up: Electronically signed by: Noemi Novak MD 01/27/24 0448 Associated attestation - Leyla Meraz MD - 02/01/2024 5:54 PM CDT The patient's history, exam findings, diagnostics, and a summary of any interventions or procedures was reviewed in detail with the ED Resident . I confirm the diagnosis as documented by the Resident and I agree with the care plan articulated in the disposition section with regards to our discussion of the patient s case. Leyla Meraz MD FACP, FAAEM. [facility] 2024-01-18 16:33:01 PT D/C home. GCS15, VS stable, no ataxia noted. Given no prescriptions and D/C paperwork. Pt ambulatory with family at time of discharge. Pt educated on suture removal, med usage, follow up care, s/s worsening condition. Pt verbalized understanding. Paola Leblanc RN [facility] 2024-01-18 15:43:16 CC: patient presents to the ER with complaints of needing a suture removal. Patient states stiches have been in place for two weeks. Awake, alert, oriented, resp reg unlabored, skin warm and dry, color appropriate for race, moves all ext without difficulty, amb without assistance. Appears in no distress. Ayse Arriaga RN [facility] 2023-12-18 11:03:33 GI provider's msg sent to PSS to overbook patient for tomorrow if she wishes to come to clinic, o/w will sent EGD and path results. Nolan Jerez RN [facility] 2023-12-15 13:59:36 Ok to add to my coming Monday clinic as add on overbook if she likes to come. Otherwise ok to send her a copy of last endoscopy and pathology reports. IM-GASTROENTEROLOGY STAFF [facility] 2023-12-14 10:57:37 I called patient who stated she had 2 appts cancelled by clinic with Dr. Denny. Patient requested EGD path be sent to Dr. Rao, [facility], fax # [phone]. I gave patient my call back number if she wants to be seen by Dr. Denny again. Fax confirmed as received. Nolan Jerez RN [facility] 2023-12-14 10:23:00 Needs to be routed to nurse , we do not give out results of any tests as pss staff as we are not medical staff Gena William V [facility] 2023-12-14 09:50:39 Pt declined to schedule since her last 2 appointments were cancelled. She would like a call back on a test that was performed the last time she seen Dr Spring. Routing to Nurses and PSS [place] Ana Rascon [facility] 2023-12-14 09:44:32 Please assist pt with r/s an appt with Dr Denny. Pls advise Patrice Diggs [facility] 2023-11-20 18:17:53 Images from the original note were not included. Your procedure is at [facility] on 11/29/23. The address is [address] [place] [address], [facility]. [facility] nursing staff will call you the workday before your procedure to let you know what time to arrive.On the day of your procedure, please go inside that door and check in at the desk. Please note: You may not travel home alone and that includes in a taxi or by bus. We must speak to your Responsible Adult (who will be picking you up) the morning of your procedure, before the start of your procedure. This person must be an adult over the age of 18 years of age. Do not eat any solid food after midnight the night before surgery. You may have sips of clear liquids such as water, gatorade, and sprite up until two hours before your scheduled procedure. You may take your medications with a sip of water as directed by physician. Anticoagulants will be per physician guidance. Medication Note(s)/Instructions:Will continue ASA per MD instruction. States she will hold morning of surgery. Pending screening, we may test for COVID. If a patient tests positive, their cases are cancelled and/or rescheduled. COVID SCREENING NOTE: Denies COVID symptoms, no testing required. Additional requests, questions, concerns:CB number and availability provided. Patient verbalized understanding of pre-op instructions and voiced no further questions at this time. [facility] 2023-10-11 14:44:18 Images from the original note were not included. Your procedure is at [facility] [place] on 10/24/22. The address is [address] [place] [address], [id number]. [facility] nursing staff will call you the workday before your procedure to let you know what time to arrive.On the day of your procedure, please go inside that door and check in at the desk. Please note: You may not travel home alone and that includes in a taxi or by bus. We must speak to your Responsible Adult (who will be picking you up) the morning of your procedure, before the start of your procedure. This person must be an adult over the age of 18 years of age. Do not eat any solid food after midnight the night before surgery. You may have sips of clear liquids such as water, gatorade, and sprite up until two hours before your scheduled procedure. You may take your medications with a sip of water as directed by physician. Anticoagulants will be per physician guidance. Medication Note(s)/Instructions: The patient was educated on medication. Understanding was verbalized, with no questions or concerns at this time. Teach-back method repeated and confirmed. There are no pre-op orders for labs or further testing at this time. Pending screening, we may test for COVID. If a patient tests positive, their cases are cancelled and/or rescheduled. COVID SCREENING NOTE: Denies COVID symptoms, no testing required. Additional requests, questions, concerns: Patient verbalized understanding of pre-op instructions and voiced no further questions at this time. T [facility]
[2024-03-01] MEDS: ROSUVASTATIN 10 MG TAB PO SCH (22:31)
[2024-03-01] MEDS: HYDROCODONE/APAP 10/325 TAB PO PRN (22:31)
[2024-03-01] MEDS: levoFLOXacin 500 MG TAB PO SCH (22:32)
[2024-03-01 23:52] VITALS: BMI 17.4
[2024-03-01] MEDS ORDERED: AMLODIPINE 5 MG TAB PO PRN (23:58)
[2024-03-01] MEDS ORDERED: HYOSCYAMINE SULF 0.125 MG TAB PO PRN (23:59)
[2024-03-02 06:18] LABS: Absolute Basophils 0.1 K/uL (0-0.5); Absolute Eosinophils 0.4 K/uL (0-0.5); Absolute Lymphocytes (CBC) 1.8 K/uL (0.7-4.9); Absolute Monocytes 0.6 K/uL (0.1-1.3); Absolute Neutrophil 3.9 K/uL (1.8-8.0); Basophils % 0.8 % (0-1.3); Eosinophils % 6.4 % (0-4.4); Hematocrit 26.4 % (36.0-45.0); Hemoglobin 8.5 g/dL (12.0-15.0); Lymphocytes % 26.1 % (15.3-44.8); MCH 29.6 pg (27.0-35.0); MCHC 32.2 g/dL (32.0-36.0); MCV 91.7 fL (80-100); MPV 6.7 fL (7.6-11.3); Monocytes % 9.2 % (3.3-12.3); Neutrophils % 57.5 % (41.7-73.7); Platelets 236 thou/uL (152-406); RBC Red Blood Cell Count 2.88 M/uL (3.86-4.86); Red Cell Distribution Width 20.7 % (12.1-15.2)
[2024-03-02 06:45] LABS: Albumin 2.2 g/dL (3.4-5.0); Anion Gap 8.6 mEq/L (5.0-15.0); Magnesium 1.7 mg/dL (1.6-2.4); Potassium 3.6 mEq/L (3.5-5.1); Prealbumin 12.5 mg/dL (20-40)
[2024-03-02] MEDS: LEVOTHYROXINE SOD 0.125 MG TAB PO SCH (07:20)
[2024-03-02] MEDS: PANTOPRAZOLE 40MG TABLET PO SCH (07:20)
[2024-03-02] MEDS: SUCRALFATE 1 GM TABLET PO SCH (07:43)
[2024-03-02] MEDS: CYANOCOBALAMIN 1,000 MCG TAB PO SCH ×2 (08:00→09:11)
[2024-03-02] MEDS ORDERED: VITAMIN A 10,000 IU CAP PO SCH (08:00)
[2024-03-02] MEDS: LOSARTAN POTASSIUM 50 MG TABLET PO SCH (08:00)
[2024-03-02] MEDS: carvediloL 25 MG TAB PO SCH (08:00)
[2024-03-02] MEDS ORDERED: ICAPS AREDS2 PO SCH (08:00)
[2024-03-02] MEDS: HYDRALAZINE HCL 25 MG TABLET PO SCH (08:00)
[2024-03-02 08:14] LABS: Anisocytosis 1+; Blood Morphology Comment NOTED (NOT SEEN); Platelet Estimate ADEQ; White Blood Cell Scan OK (OK)
[2024-03-02] MEDS: MESALAMINE 400 MG CAPSULE.DR PO SCH (08:49)
[2024-03-02] MEDS: APIXABAN 5 MG TABLET PO SCH (08:51)
[2024-03-02] MEDS: VITAMIN D 5,000 UNIT CAP PO SCH (08:51)
[2024-03-02] MEDS: OCUVITE (VIT A,C & E/LUTEIN/MINERAL) TABLET PO SCH (08:51)
[2024-03-02] MEDS: LIPASE/PROTEASE/AMYLASE CAP PO SCH (08:51)
[2024-03-02] MEDS: ZINC SULFATE 220 MG CAP PO SCH (08:52)
[2024-03-02] MEDS: ASPIRIN EC 81 MG TAB PO SCH (08:52)
[2024-03-02] MEDS: HYDROCODONE/APAP 5/325 MG TAB PO PRN (10:10)
[2024-03-02] MEDS: ONDANSETRON 4 MG (ODT) TAB PO PRN (10:11)
[2024-03-02] MEDS: BUDESONIDE, MICRONIZED 3 MG CAP PO SCH (10:11)
[2024-03-02] MEDS ORDERED: levoFLOXacin 500 MG TAB PO SCH (12:00)
--- NOTE | 2024-03-02 13:27 | HP ---
Date of Admission: 03/01/2024 Chief Complaint: Weakness. History Of Present Illness: This is a 79-year-old very pleasant female patient, who fell [facility] and had right hip fracture on January 27, 2024, and also during that hospital admission she was diagno sed as having atrial fibrillation and stroke. The patient had hip surgery done, and she was on antip latelet and anticoagulation therapy and was discharged from [facility] to go to [facility] on 02/02/2024. On 02/25/2024, the patient was readmitted to [facility] because of bleeding problem and this bleeding was in her right thigh in the perioperative site. The patient did require blood transfusion during her hospital stay at [facility]. She had debridement done of the right hip for t his bleeding and there were 2 different arteriolar bleeds were noted, which were cauterized. The pat ient also was noted to have soft tissue infection with enterobacter bacteria and she was given IV ant ibiotics, Levaquin and as of yesterday, she was discharged to come to our inpatient rehab facility. The patient has significant generalized weakness and has some complaints of pain in her right hip whe n I saw her today. Allergies: NO KNOWN ALLERGIES. Medications: Her outpatient medication list according to last office visit from December 14, 2023, inclu italo Tylenol with Codeine 1 tablet 3 times a day as needed for pain, amlodipine 5 mg 2 times a day as needed for systolic blood pressure more than 140, aspirin 81 mg daily, budesonide 3 mg 2 times a day, carvedilol 25 mg 2 times a day, ferrous sulfate 325 mg daily, hydralazine 50 mg takes 1-1/2 tablets in the morning and afternoon and 2 tablets at bedtime, Levsin sublingual tablet 0.125 mg 3 times a da y as needed, levothyroxine 125 mcg daily, Creon 2 capsules 4 times a day, losartan 100 mg daily, Lial da which is mesalamine 1.2 g 2 times a day, omeprazole 40 mg daily, atorvastatin 20 mg daily at bedti me. Current medication list reviewed that includes aspirin 81 mg daily, hydrocodone 1 tablet every 6 hour s as needed, levofloxacin 500 mg daily, rosuvastatin 40 mg daily at bedtime, Eliquis 5 mg 2 times a d ay, vitamin A 25,000 units daily, zinc 250 mg daily, Creon 2 capsules 3 times a day with meal, amlodi pine 5 mg 2 times a day as needed for systolic blood pressure more than 140, Levsin 0.125 mg tablet e very 4-6 hours as needed, sucralfate 1 g before meals and at bedtime, losartan 25 mg daily, methscopo jose manuel 5 mg at bedtime, budesonide 9 mg daily, carvedilol 25 mg 2 times a day, vitamin D3 5000 units daily, vitamin B12 5000 mcg daily, hydralazine 50 mg 2 times a day, levothyroxine 125 mcg daily, castano jose manuel 1.2 g 4 times a day, omeprazole 40 mg daily. Past Surgical History: Thyroidectomy on the right side, cholecystectomy, hysterectomy, right hip fra cture surgery, appendectomy, cataract surgery, and ampullectomy with pancreatic duct dilatation at [facility] about 2 years ago or so. Past Medical History: Significant for hypothyroidism, impaired fasting glucose, hypertension, hyperl ipidemia, gastroesophageal reflux disease, diverticulosis, collagenous colitis, basal cell carcinoma of skin, anemia due to chronic GI blood loss, and recent hospital stay at [facility]. The patient had atri al fibrillation, SIADH, and also acute blood loss anemia. Family History: Father , had heart disease. Mother , had congestive heart failure and diabe axel. Siblings with rectal cancer. Social History: Positive for smoking. Use of alcohol negative. Physical Examination: Vital Signs: This morning, temperature 96.8, pulse 84, respiratory rate 20, blood pressure 148/70, o xygen saturation 98%. General: Awake, alert, oriented, not in distress. HEENT: Head atraumatic, normocephalic. Conjunctivae nonerythematous. Sclerae white. Mouth, no thr ush or edema noted. Ears/Nose, no mass, lesion, discharge noted. Neck: Supple. No JVD, lymph nodes, bruit, thyromegaly noted. Lungs: Bilateral good equal air entry. Clear to auscultation. No rhonchi. No rales. Heart: Normal heart sounds, no murmur or gallop. Abdomen: Soft, bowel sounds normal. No guarding, rigidity, tenderness, mass, hepatosplenomegaly, dis tention, or bruit noted. Extremities: Right lateral thigh has surgical dressing present, which was removed and has a long patricia gical scar with sutures present. No evidence of any redness, discharge, gapping, or bleeding from th is site. Skin: No rash, ulcer, cellulitis. Lymphatics: No lymph node enlargement in neck, supraclavicular, infraclavicular region. Neuro: No focal neurological deficit. Chest: Unremarkable. External Genitalia: Deferred. Rectal: Deferred. Laboratory Data: White count 6.7, hemoglobin 8.5, platelets 236. Sodium 134, potassium 3.6, chlorid e 101, bicarb 28, BUN 5, creatinine 0.58, glucose 92, serum albumin 2.2. Impression: 1.Right hip fracture, status post surgery. 2.Soft tissue infection of her right thigh, bacteria enterobacter, on oral antibiotic Levaquin for 2 weeks. 3.Syndrome of inappropriate antidiuretic hormone secretion. 4.Anemia due to acute blood loss and chronic gastrointestinal loss. 5.Hypertension. 6.Hyperlipidemia. 7.Hypothyroidism. 8.Impaired fasting glucose. 9.Gastroesophageal reflux disease. 10.Diverticulosis. 11.Severe malnutrition. 12.Atrial fibrillation, paroxysmal. 13.Chronic anticoagulation therapy. 14.Generalized weakness. 15.Debility. Plan: We will go ahead and admit the patient to hospital for further evaluation and management of th is problem to rehab floor. I will consult Dr. Teague from rehab floor to manage the patient's reha b therapy, and I will continue to look after her from medical management. We will go ahead and harpal nue her on aspirin 81 mg daily and Eliquis 5 mg twice a day for her atrial fibrillation with a histor y of stroke. We will continue this combination of therapy for her and no need for any further interv ention on it. For her hypertension, we will continue amlodipine per order for systolic blood pressur e more than 140. Carvedilol instead of 25 mg twice a day, I will reduce it to 12.5 mg twice a day an d the patient has significant orthostatic changes. Her sitting blood pressure was like 88 today, and she was not able to tolerate standing blood pressure, so we will monitor her blood pressure. If nec essary, we will consider adding midodrine. Continue hydralazine per order. For her severe malnutrit ion, I have encouraged her to eat her 3 meals a day and also add Ensure high-protein supplement. The patient does not have any decubitus ulcer, but on her coccyx area she has a slight area of redness o f the skin and it does not richard, so I would grade that as a sacrococcygeal stage I decubitus and sh e already has a protective dressing and air mattress in place and we should change position every 2 h ours. For her hyperlipidemia, we will continue statin therapy per order and no need for further inte rvention. For her collagenous colitis, we will continue mesalamine and budesonide per order. For an emia, we will continue to monitor her blood work and no need for any further intervention at this lianna e. For her SIADH, no need for further intervention except monitoring at this time. Total time spent includes 90 minutes and that includes review of available record from [facility], review of last office visit record from December of this year and performing evaluation and management f or this hospital admission. I will see her tomorrow for followup. We will continue her antibiotic L evaquin for 2 weeks per order for soft tissue infection in the right thigh. PRITI/MODL Voice ID: [id number]
[2024-03-02] MEDS: ENSURE HIGH PROTEIN 237 ML CAN PO SCH (14:09)
[2024-03-02] MEDS: carvediloL 12.5 MG TAB PO SCH (17:17)
[2024-03-02] MEDS: MAGNESIUM OXIDE 400 MG TAB PO SCH (20:00)
[2024-03-02] MEDS: CALCIUM MAGNESIUM ZINC PO SCH (20:00)
[2024-03-02] MEDS: METHSCOPOLAMINE 5 MG PO SCH (21:00)
[2024-03-02] MEDS: levoFLOXacin 500 MG TAB PO SCH (21:19)
--- NOTE | 2024-03-03 07:24 | HP ---
Date of Admission: 03/01/2024 Time Of Service: 1 p.m. Chief Complaint: "I broke my right hip, I had a stroke." History Of Present Illness: Ms. Carlson is a 79-year-old right-handed patient with hypert ension, hypothyroidism, gastroesophageal reflux disease, who had a recent stroke involving the left p osterior temporoparietal region with some residual left-sided weakness. She was seen for her stroke at [facility]. [place] from 01/27/2024 to 02/02/2024. She had due to the stroke weakness involving the r ight side. She fell and broke the right hip. She had surgery for the right hip hemiarthroplasty and once stable was transferred to [facility] where she had rehabilitation from 02/02/2024 to 02/03. She was doing fairly well in rehab, however, on the , she was evaluated and required ash sfer to [facility] for continued bleeding from the right hip surgical site. Due to that and wors ening pain, she was evaluated with a hip x-ray, was negative for any obvious abnormalities. She was re-evaluated by Orthopedic Service and no displacement of the right hip surgical site is identified. She was kept at weightbearing as tolerated status to the right lower extremity. While there, she wa s diagnosed with hyponatremia and had concerns for SIADH. CT scan of the head did identify no acute intracranial abnormalities. There was global volume loss, encephalomalacia in the area of the brain on the left as described above. Due to a drop in her hemoglobin, she required 1 unit of packed red b lood cells and hemoglobin stabilized. She has been on Eliquis for atrial fibrillation. From surgery , her surgical site did grow Enterobacter cloaca with sensitivity to Levaquin and was put on Levaquin 750 mg twice daily to continue 500 mg twice daily for 14 days, end on 03/15/2024. As a result of he r needing continuous antibiotics, will be monitored for a drop in hemoglobin and hematocrit and for s evere pain to the right hip and had to be revised along with multiple electrolyte abnormalities. She was determined to be appropriate candidate for aggressive inpatient rehabilitation and is therefore admitted to the inpatient rehabilitation unit for physical, occupational, and speech therapy to help her avoid rehospitalization and to return to her prior level of functioning. Past Medical History: As noted. Past Surgical History: Appendectomy, hip arthroplasty on 01/08/2024. She has had stroke on 01/28/20. X-ray Imaging: Hip x-ray on 02/23, shows right hip hemiarthroplasty change with expected postoperati ve changes. CT of the head on 02/23, shows no acute intracranial hemorrhage or mass effect. Chronic stroke as noted above. CT angiogram shows postsurgical changes, right hip arthroplasty without acut e hardware abnormalities. There is a 4.2 x 3.3 hematoma in the soft tissue of the right gluteal area posterior to the surgical site. Allergies: ADHESIVE TAPE, LATEX, EXPAREL. Medications: Norvasc 5 mg twice daily, Eliquis 5 mg twice daily, aspirin 81 mg daily, carvedilol 12. 5 mg twice daily, vitamin D 5000 units daily vitamin B12 1000 mcg daily, ferrous sulfate 325 mg daily , Apresoline 50 mg twice daily, Venus 5/325 every 6 hours as needed, Levaquin 500 mg daily, Synthroid 0.125 mg daily, Cozaar 25 mg daily, magnesium oxide 400 mg twice daily, Mesalamine 1200 mg 4 times d aily, Hemocyte Plus 1 tablet daily, Ocuvite 1 tablet daily, Ensure high protein 237 mL 3 times daily, Zofran 4 mg every 4 hours as needed, Protonix 40 mg daily, rosuvastatin 40 mg daily, Carafate 1 g at night, vitamin A 1000 units daily, zinc 220 mg daily. Family History: Noncontributory. Laboratory Studies: White blood cell count 6.7, hemoglobin 8.5, platelets 236. Sodium 134, potassiu m 3.6, chloride 101, carbon dioxide 28, BUN 5, creatinine 0.58, glucose 92, calcium 8.5, magnesium 1. 2, albumin 2.2, prealbumin 12.5. Her urinalysis is pending. Review of Systems: She reports when mobilizing pain in the right hip, after 10-minute rest around 2/10. She admits to m ild nausea, but did have some medication to relieve the nausea. No fevers, chills. Mild myalgias in the right and some arthralgias as well, especially in the right lower extremity. No rash or psychiatric complaints. Current Level Of Functioning: Eating, supervision. Oral hygiene at supervision. Moderate assistanc e for toileting, showering upper body dressing, maximal assistance for lower body dressing and donnin g and doffing footwear, moderate assistance. For rolling left to right, sit to lying and sitting to sliding on the side of the bed, moderate assistance required. [id number] and transfer to the toile t and to a wheelchair moderate assistance. She ambulate with a rolling walker 30 feet with moderate assistance. Rehabilitation And Medical Assessment And Plan: Ms. Carlson is admitted to the rehabilitation unit with impairment category 07, orthopedic, lower extremity fracture. Her impairment group code is 08.1 1 status post unilateral hip fracture. Etiologic diagnosis, right femoral neck fracture. Comorbidit ies, atrial fibrillation, anemia, stroke, decreased mobility, decreased physical functioning, gastroe sophageal reflux disease, hypertension, hyponatremia, hypothyroidism, pain, malnutrition. Plan: She will have physical, occupational, and speech therapy for 3.5 hours, 5 of 7 days. She will continue with Eliquis 5 mg twice daily for DVT and stroke risk reduction, aspirin [address] roke risk reduction, Coreg 12.5 mg daily for heart rate and blood pressure control along with the Nor vasc 5 mg twice daily for her heart rate and blood pressure control, vitamin B12 for anemia, ferrous sulfate the anemia, Apresoline for blood her pressure control, Levaquin, continue for the infection as noted, end on 03/15/2024. Hemocyte Plus along with ferrous sulfate for malnutrition, Zo darell for nausea. Presently, dyslipidemia. Comorbidities That Are Impacting Rehabilitation: Currently, she is on oral antibiotics for an infect ion involving the surgical site. It is scheduled and on the and she will be followed for white blood cell count or any signs of worsening infection. Chest x-ray will be done. Blood cultures also will be drawn as needed. Procalcitonin, lactic acid as needed. She is a high fall risk, fall preca utions be adhered to at all times with mobilization, transfers, with gait belt and walker. Rehab Specific Plan: Ms. Carlson will have physical, occupational, and speech therapy 3.5 hours, 5 of 7 days to improve her ability to transfer from bed to chair to toilet, to use a walker to mobilize household distances, to use a wheelchair to well mobilize hospital distances. Occupational therapy to help with activities of daily living including dressing upper and lower body, donning and doffing footwear and managing ordinary activities. Next, speech therapy as need be to help with sound decisi on making to manage medications and to have safety awareness as a priority. Ms. Carlson has a good understanding of the process of admission to the inpatient [facility] how she will benefit from physical, occupational, and speech therapy. She will have 24 hours a day, 7 days a week skilled rehabilitation nursing, daily evaluation and management by physician for integrating her medical care and fair physical therapy. She will have social media editor evaluation for discharge planning, home equipment, followup therapy and her medications after discharge. Barriers To Discharge: At this point, she has been in prison for an extended period, did no t have easy course after right hip fracture and surgery where she had to have a revision done and the re was an infection identified. It is possible that the area may continue to be and have need for prolonged antibiotics, which could be intravenous. Currently, she has oral antibiotics sche duled until 03/15. Imaging will be done to determine if there is any fluid collection or worsening p ossibility of an additional infection. Length Of Stay: About 14 days. Disposition: Home with family and continuing therapy via Home Health. Prognosis: Good. Rehab Specific Goals: 1.Become independent with upper and lower body dressing, donning and doffing footwear. 2.Independently mobilize 250 feet with a rolling walker and wheelchair. 3.Independently go up and down 10 steps with bilateral handrails. 4.Independently perform cognitive functioning. The above goals were reviewed with Ms. Carlson and she is in agreement. By signing this document, I acknowledge I personally performed a full physical examination on Ms. Martha marquez no later than 24 hours after her admission to the inpatient rehabilitation facility and gita fang that she is able to tolerate the above course of treatment at an intensive level for a reasonable period of time. A detailed individualized plan of care for her will be completed by hospital day 4 based on the preadmission screen history and phys ical and therapy evaluations. LB/MODL Voice ID: [id number]
[2024-03-03] MEDS: FE SULF/FA/VIT B COMP & C TAB PO SCH (10:00)
[2024-03-03] MEDS: FERROUS SULFATE 325 MG TAB PO SCH (10:00)
--- NOTE | 2024-03-03 12:12 | PN ---
Date of Progress Note: 03/03/2024 Subjective: The patient was seen this morning for followup. No new complaints or problems reported by the patient. Lying in bed, not in distress. Physical Examination: Vital Signs: Reviewed. HEENT: Unremarkable. Lungs: Clear to auscultation. Heart: Sounds normal. Abdomen: Soft. Bowel sounds normal. No guarding, rigidity, tenderness, or distention. Extremities: No leg edema. Impression: 1.Hypertension. 2.Orthostatic hypotension. 3.Anemia due to acute blood loss. 4.Hyperlipidemia. 5.Paroxysmal atrial fibrillation. Plan: We will go ahead and continue current Eliquis. Continue current antihypertensive medication, and I have reviewed blood pressure readings. Her blood pressure dropped with her orthostatic hypoten oziel is not significant enough to start any medication for it, but we will continue to monitor that. Continue nutritional supplement and I will see her tomorrow for followup. I did discuss with her re garding her code status and in the event of cardiopulmonary arrest, the patient informed me that she does not want any CPR, defibrillation, or ventilator support and DNR order will be written in the chart. PRITI/MODL Voice ID: [id number] Report ID: [id number]
[2024-03-03] MEDS: ACETAMINOPHEN 500 MG TAB PO PRN (16:27)
[2024-03-03] MEDS: GABAPENTIN 100 MG CAP PO SCH (21:08)
[2024-03-04 05:46] LABS: Absolute Eosinophils 0.1 K/uL (0-0.5); Absolute Lymphocytes (CBC) 1.3 K/uL (0.7-4.9); Absolute Monocytes 0.5 K/uL (0.1-1.3); Absolute Neutrophil 4.5 K/uL (1.8-8.0); Basophils % 0.5 % (0-1.3); Hematocrit 23.6 % (36.0-45.0); Lymphocytes % 19.3 % (15.3-44.8); MCH 30.4 pg (27.0-35.0); MCHC 33.8 g/dL (32.0-36.0); MCV 90.2 fL (80-100); MPV 6.5 fL (7.6-11.3); Monocytes % 8.4 % (3.3-12.3); Neutrophils % 69.8 % (41.7-73.7); Platelets 288 thou/uL (152-406); RBC Red Blood Cell Count 2.62 M/uL (3.86-4.86); Red Cell Distribution Width 20.6 % (12.1-15.2)
[2024-03-04] MEDS: VITAMIN A 10,000 IU CAP PO SCH (07:50)
[2024-03-04] MEDS ORDERED: AMLODIPINE 5 MG TAB PO PRN (09:33)
[2024-03-04] MEDS: LOSARTAN POTASSIUM 50 MG TABLET PO SCH (10:29)
[2024-03-04] MEDS: carvediloL 12.5 MG TAB PO SCH (11:34)
--- NOTE | 2024-03-04 12:23 | PN ---
Date of Progress Note: 03/04/2024 Subjective: The patient was seen this morning for followup. No new complaints or problems reported by patient. She was sitting in wheelchair. Overall, feels better. Had a bowel movement and denies any constipation, abdominal pain, nausea, vomiting. Objective: Vital signs: Reviewed. The patient's blood pressure still drops when she is sitting and standing compared to lying. HEENT: Unremarkable. Lungs: Clear to auscultation. Heart: Sounds normal. Abdomen: Soft. Bowel sounds normal. No guarding, rigidity, tenderness, or distention. Extremities: No leg edema. Laboratory Data: White count 6, hemoglobin 8, platelets 288. Impression: 1.Acute blood loss anemia. 2.Anemia due to chronic GI loss. 3.Hypertension. 4.Orthostatic hypotension. 5.Right hip fracture. 6.Collagenous colitis. Plan: We will continue medications for her collagenous colitis. Continue Levaquin that she takes it for soft tissue infection of the right thigh and she should be on it for total of 14 days. For anem ia, she is on iron supplement, which we will continue that with monitoring of hemoglobin and if neces marta, we will consider blood transfusion in the future. We will add antihypertensive medication with parameters to hold if systolic blood pressure less than 120 in supine position blood pressure readin gs. I have gone up on her losartan and my plan is to try to come down on carvedilol to try to stop t hat completely if possible and use alternate antihypertensive medication, so originally she was takin g carvedilol 25 mg 2 times a day, which I have reduced it to 12.5 two times a day since this admissio n after noticing orthostatic blood pressure changes. As of today, I have increased losartan to 50 mg daily. The patient lost her glasses as well as dentures while she was at [facility]. So tomorr ow, she is requesting to go to her dentist Dr. Hirsch to start the process of getting new dentures and I have discussed this with the nursing staff so that way they can assist her with this appointment w ith her dentist tomorrow. PRITI/MODL Voice ID: [id number] Report ID: [id number]
[2024-03-04] MEDS: ENSURE ENLIVE 237 ML CAN PO SCH (19:29)
[2024-03-04] MEDS: HYDRALAZINE HCL 25 MG TABLET PO SCH (19:31)
--- NOTE | 2024-03-04 23:41 | PN ---
Date of Progress Note: 03/04/2024 Time Of Service: 1:45 p.m. Subjective: Ms. Carlson is resting in bed between therapy sessions. She does report some mild-to-m oderate pain in the right hip with her therapy, but otherwise pain is reasonably managed. Review of Systems: Again, some myalgias and arthralgias in the right lower extremity where she does have the hip fractur e surgical repair. Otherwise, no other positives on this 10-point systems review. Physical Examination: Vital Signs: Blood pressure 146/69, pulse of 68, respiratory rate 17, temperature 97.8, oxygen satur ation 98%. General: Ms. Carlson is resting comfortably, in no acute distress. HEENT: Normocephalic, atraumatic. Sclerae anicteric. Oropharynx pink, moist. Neck: Supple. Chest: Clear. Extremities: Mild edema in the right lower extremity. She is able to do her right and left foot beth siflexion and plantarflexion. Knee extension and flexion while in bed to reduce the risk of DVTs and to reduce risk of skin breakdown in the dependent areas. Laboratory Studies: White blood cell count 6.5, hemoglobin 8, platelets are 288. Sodium 134, potass ium 3.6, chloride 101, carbon dioxide 28, BUN 5, creatinine 0.58, prealbumin 12.5, albumin 2.2. X-ray/imaging: No new x-rays or imaging. Medications: Tylenol 500 mg every 6 hours as needed, [place] 5/325 every 6 hours as needed, Norvasc 5 mg twice daily when systolic blood pressure is greater than 140. She has probiotics on board 2 capsu les twice daily, Eliquis 5 mg twice daily, aspirin 81 mg daily, Coreg 12.5 mg twice daily, vitamin D 5000 units daily, vitamin B12 1000 mcg daily, ferrous sulfate 325 mg daily, gabapentin 100 mg twice d aily, Apresoline 50 mg twice daily, Levaquin 500 mg daily, Levsin 0.125 mg every 4 hours as needed, S ynthroid 0.125 mg daily, Cozaar 50 mg daily, magnesium oxide 400 mg twice daily, mesalamine 1200 mg 4 times daily, Hemocyte Plus 1 tablet daily, Ensure Enlive 237 mL daily, Zofran 4 mg every 4 hours as needed, Protonix 40 mg daily, Crestor 40 mg at bedtime, vitamin A 20,000 internal units da juan j, zinc sulfate 220 mg daily. Progress Made With Physical, Occupational, And Speech Therapy: With physical therapy, performed supi ne to sit transfers with contact guard assistance, multiple fsk-yz-eaijo transfers done with contact guard assistance, mobilized wheelchair 300 feet with modified independence. She did require, however , some verbal cues for maneuvering. She did have a significant drop in her blood pressure while owen ding to 70/48, but that returned to 102/60 within about 120 seconds. Again some orthostatics. Her b lood pressure management is by Dr. Simmons. With occupational therapy, she performed bathing, upper bod y dressing, washing independently and lower body dressing with long handled sponge also done well. C ontact guard assistance actually upper body dressing required. Did require some verbal cues. Her sp eech as noted she does have deficits of short-term memory, problems with naming, working memory, orga nizational thinking. Recall, those are being worked on with the speech therapist. Assessment: Ms. Carlson is a 79-year-old patient in the rehabilitation unit with right femoral neck fracture, status post surgical repair. She has comorbid decreased mobility, decreased physical func tioning. She has dyslipidemia, GE reflux, malnutrition, anemia, hypertension, hypothyroidism, fibril lation, and of course postoperative pain with the anemia. Plan: She will continue with physical, occupational, and speech therapy 3-1/2 hours, 5 of 7 days. S he has multiple comorbid conditions, which are managed by Dr. Simmons. Her medication lists are being c ontinued. Pain and muscle spasms addressed with multiple modalities and magnesium. She has insomnia addressed. Constipation also has been addressed. She does have significant orthostatic hypotension . She had LESTER hose and abdominal binders and medications for blood pressure are put on the course of parameters to hold and those are managed by Dr. Simmons. LB/MODL Voice ID: [id number] Report ID: [id number]
[2024-03-05] MEDS: LOSARTAN POTASSIUM 50 MG TABLET PO SCH (08:00)
[2024-03-05] MEDS: AMLODIPINE 5 MG TAB PO SCH (08:00)
[2024-03-05] MEDS: HYDROCODONE/APAP 5/325 MG TAB PO PRN (10:51)
[2024-03-05] MEDS: METOPROLOL TAR 25 MG TAB PO SCH (17:05)
[2024-03-05] MEDS: TRAMADOL HCL 50 MG TAB PO PRN (17:11)
--- NOTE | 2024-03-05 20:15 | PN ---
Date of Progress Note: 03/05/2024 Subjective: The patient was seen this morning for followup. No new complaints or problems reported by the patient. She was standing at the bedside getting her vital signs checked when I saw her for o rthostatic vitals. She still drops her blood pressure while she is standing and sitting compared to supine position. Objective: Vital Signs: Reviewed. HEENT: Unremarkable. Lungs: Clear to auscultation. Heart: Sounds normal. Abdomen: Soft. Bowel sounds normal. No guarding, rigidity, tenderness, distention. Extremities: No leg edema. Laboratory Data: No new labs today. Impression: 1.Orthostatic hypotension. 2.Hypertension. 3.Hyperlipidemia. 4.Anemia due to acute blood loss. Plan: We will go ahead and change her blood pressure medications and I will discontinue hydralazine and carvedilol completely. We will give her amlodipine 5 mg 2 times a day, metoprolol 25 mg 2 times a day, and losartan 50 mg 2 times a day, and hold all these antihypertensive medications if supine sy stolic blood pressure less than 120. I will see her tomorrow for followup. We will continue to prov sebas physical therapy under guidance of Dr. Teague. PRITI/LIMAL Voice ID: [id number] Report ID: [id number]
--- NOTE | 2024-03-05 22:30 | PN ---
Date of Progress Note: 03/05/2024 Time Of Service: 1:25 p.m. Subjective: Ms. Carlson is in the gym doing therapy using the peddler exercise and the ergometer. She denies any significant pain in the right femoral neck fracture. However, when she did ambulate i s moderately painful and did request some adjustment to the pain medication regimen. She did have tr amadol added to her medication regimen of 50 mg every 4 hours as needed, [place] frequency was adjusted from every 6 hours to every 4 hours 5/325 tablet. She did continue with medications for DVT prophyl axis including Eliquis, it is also for stroke risk reduction given her atrial fibrillation. Objective: Again, some pain in the right hip where she has a surgical site. No significant swelling . No other positives there and she is able to still joke around while she is doing her therapy. Physical Examination: Vital Signs: Blood pressure while lying was 135/62, pulse 69; while sitting, 111/56, pulse 70; and w hile standing, significant drop to 76/56, pulse of 81. She was somewhat symptomatic at that point. HEENT: Otherwise, she is normocephalic, atraumatic. Sclerae anicteric. Oropharynx pink, moist. Neck: Supple. Chest: Clear. Extremities: No significant edema, cyanosis, or clubbing. Good hemostasis at the right hip surgical site. Laboratory Studies: No new laboratory studies from yesterday. X-ray/imaging: No new x-rays or imaging. Medications: Medications again have been adjusted so that she has tramadol added. She has [place] piter quency increased. Otherwise, lidocaine patch also applied to the back. She has Lopressor that have been adjusted by Dr. Simmons to decrease her orthostasis. She does have vitamin A on board as well. Progress Made With Physical, Occupational, And Speech Therapy: Today with her physical therapy, she did glgukc-jc-lga transfers independently, perform multiple rbu-rz-kambd transfers with standby beata tance and verbal cues. She did use a rolling walker to cover 100 feet with contact guard assistance and mobilized a wheelchair 200 feet independently. As noted, she did have some significant drop in b lood pressure while standing, but that did improve with abdominal binder and LESTER hose to the left low er extremity which continued throughout her therapy. With the occupational therapy, she did engage i n bilateral upper extremity aerobic exercise for 5 minutes, short rest breaks in between. Blood pres sure did go up when she was exercising and while she used the peddler in the gym. Regarding speech, she recalled 3 of 3 unrelated pictures after 5-minute delay and then 3 of 3 after 8 minutes as well. She did have some fatigue towards the end of the session. She did use organizational thinking while naming convergent items with 90% accuracy and minimum assistance. Ms. Carlson is making good progress overall with physical and occupational therapy. She did have so me worsening pain and again medications have been adjusted. Assessment: Ms. Carlson is a 79-year-old patient with right femoral neck fracture, status post surg ical repair, who is making good progress overall with her physical, occupational, and speech therapy. She has decreased mobility, decreased physical functioning, dyslipidemia, GE reflux, malnutrition, anemia, hypertension, hypothyroidism, atrial fibrillation. Plan: Continue with physical, occupational, and speech therapy for 3.5 hours, 5 of 7 days. She does have multiple comorbid conditions which are managed by medications and Dr. Simmons is in charge. Pain medications were adjusted and she is indicating a response with less pain while she mobilizes. CASI/SUSI Voice ID: [id number] Report ID: [id number]
[2024-03-06] MEDS: HYDROCODONE/APAP 5/325 MG TAB PO PRN (07:41)
[2024-03-06] MEDS: LIDOCAINE 4% PATCH TOP SCH (07:44)
--- NOTE | 2024-03-06 19:48 | PN ---
Date of Progress Note: 03/06/2024 Subjective: The patient was seen this morning for followup. She was lying in bed, not in distress. Denies any new complaints. Physical Examination: Vital Signs: Reviewed. This morning, temperature 97.6, pulse 97, respiratory rate 16, blood pressur e in supine position was 171/82, in sitting position 166/73, and in standing position 139/66. HEENT: Unremarkable. Lungs: Clear to auscultation. Heart: Sounds normal. Abdomen: Soft. Bowel sounds normal. No guarding, rigidity, tenderness, distention. Extremities: No leg edema. Impression: 1.Orthostatic hypotension. 2.Hypertension. 3.Anemia due to acute blood loss. 4.Hyperlipidemia. 5.Atrial fibrillation, paroxysmal. 6.Chronic anticoagulation therapy. Plan: We will go ahead and continue current antihypertensive medication. We will continue to monito r her blood pressure including orthostatic blood pressure changes. Continue physical therapy under g uidance of Dr. Teague. Continue current anticoagulation which is Eliquis and I will see her tomorr ow for followup. PRITI/MODL Voice ID: [id number] Report ID: [id number]
[2024-03-06] MEDS: MESALAMINE 1.2 GM PO SCH (20:01)
--- NOTE | 2024-03-06 23:18 | PN ---
Date of Progress Note: 03/06/2024 Time Of Service: 1:20 p.m. Subjective: Ms. Carlson is in bed. She completed therapy sessions in the morning. She is happy so far with her ability to exercise, improve her strength, and while the right femoral neck fracture ramos rgical site is not paining much as it is mitigated with multiple pain medication modalities. Objective: Some mild right surgical site pain on the right femoral neck area, but not significant. No other positives on systems review. Physical Examination: Vital Signs: Blood pressure 129/64, pulse 65, respiratory rate 16, temperature 97.6, oxygen saturati on 95%. General: Ms. Carlson is resting comfortably, in no significant distress. HEENT: She appears normocephalic, atraumatic. Sclerae anicteric. Oropharynx pink and moist. Neck: Supple. Chest: Clear. Extremities: Does have bruising in the arms related to her blood thinners. Laboratory Studies: No new laboratory studies. X-ray/imaging: No new x-rays or imaging. Medications: Medications have been reviewed and remained unchanged. She is managed for medical anum rbid conditions by Dr. Simmons. Progress Made With Therapy: Today, she did epkxnf-zn-rip transfers independently, multiple sit-to-st and transfers with standby assistance, mobilized a wheelchair 250 feet independently. She was unable to do any gait training today. She felt lightheaded with some orthostatic changes in blood pressure . With speech, able to recall 4/4 unrelated items after 3 minutes and 5 minutes. With her occupatio nal therapy, required contact guard assistance for toilet transfers and using grab bars. Tolerated 1 0 minutes of bilateral upper extremity aerobic exercise. Blood pressure did go down to 103/61 standi ng and with wheelchair. Ms. Carlson is somewhat limited by orthostatic changes. She is mobilizing very well in wheelchair a nd difficulty with ambulation because of the orthostatics and lightheadedness and tendency to fall. Assessment: Ms. Carlson is a 79-year-old patient in rehabilitation with right femoral neck fracture , status post repair. She has decreased mobility, decreased physical functioning, difficulty with mo bilization because of orthostatic changes, dyslipidemia, GE reflux, malnutrition, anemia, hypertensio n, hypothyroidism, atrial fibrillation. Plan: 1.Continue with physical, occupational, and speech therapy for 3.5 hours, 5 of 7 days. 2.Her comorbid conditions are managed by Dr. Simmons and they are continuing, well managed with pain, m itigated by multiple modalities including tramadol, lidocaine patch, [place], and gabapentin. She has Norvasc for blood pressure control, Rosuvastatin for dyslipidemia, Zofran for nausea, Hemocyte Plus f or anemia. She will continue with physical, occupational, and speech therapy for 3.5 hours, 5 of 7 d ays. As noted, the biggest comorbid impacting rehabilitation is orthostasis, making it difficult for her to stand and ambulate and putting at high risk of additional falls. Recommended that she mobili ze via wheelchair and do work on short transfers. CASI/SUSI Voice ID: [id number] Report ID: [id number]
[2024-03-07 05:52] LABS: Absolute Basophils 0.1 K/uL (0-0.5); Absolute Eosinophils 0.2 K/uL (0-0.5); Absolute Lymphocytes (CBC) 2.4 K/uL (0.7-4.9); Absolute Monocytes 0.9 K/uL (0.1-1.3); Basophils % 0.9 % (0-1.3); Eosinophils % 2.5 % (0-4.4); Hematocrit 23.1 % (36.0-45.0); Hemoglobin 7.7 g/dL (12.0-15.0); Lymphocytes % 28.3 % (15.3-44.8); MCH 30.6 pg (27.0-35.0); MCHC 33.2 g/dL (32.0-36.0); MPV 6.6 fL (7.6-11.3); Monocytes % 10.3 % (3.3-12.3); Platelets 379 thou/uL (152-406); RBC Red Blood Cell Count 2.51 M/uL (3.86-4.86); Red Cell Distribution Width 20.8 % (12.1-15.2)
[2024-03-07 06:13] LABS: Albumin 2.2 g/dL (3.4-5.0); Anion Gap 7.9 mEq/L (5.0-15.0); Magnesium 1.9 mg/dL (1.6-2.4); Potassium 3.9 mEq/L (3.5-5.1); Prealbumin 17.5 mg/dL (20-40)
[2024-03-07 06:44] LABS: Anisocytosis 1+; Blood Morphology Comment NOTED (NOT SEEN); Platelet Estimate ADEQ; Polychromasia 1+; White Blood Cell Scan OK (OK)
[2024-03-07] MEDS: DOCUSATE NA/SENNA CONC 1 TAB PO SCH (08:39)
--- NOTE | 2024-03-07 17:51 | RAD REPORT ---
EXAM DESCRIPTION: RAD - Hip Right 2 View - 03/07/2024 5:14 pm CLINICAL HISTORY: increased pain in Right Hip COMPARISON: No comparisons TECHNIQUE: Right hip, 2 views. FINDINGS: A right hip prothesis has been placed. Hardware is in expected location. No acute fracture or other complications. No suspicious osseous lesion. Vascular calcifications. Surrounding soft tiss ues are otherwise unremarkable. IMPRESSION: No acute osseous abnormality. Right hip prosthesis in place.
[2024-03-07] MEDS: GABAPENTIN 300 MG CAP PO SCH (19:44)
--- NOTE | 2024-03-07 20:38 | PN ---
Date of Progress Note: 03/07/2024 Subjective: The patient was seen this morning for followup. No new complaints or problems reported by the patient. She was lying in bed, not in any distress. Objective: Vital Signs: Reviewed. HEENT: Unremarkable. Lungs: Clear to auscultation. Heart: Sounds normal. Abdomen: Soft. Bowel sounds normal. No guarding, rigidity, tenderness, distention. Extremities: No leg edema. Laboratory Data: White count 8.6, hemoglobin 7.7, platelets 379. Impression: 1.Anemia, due to acute blood loss. 2.Right hip fracture. 3.Orthostatic hypotension. 4.Hypertension. 5.Hyperlipidemia. 6.Paroxysmal atrial fibrillation. 7.Chronic anticoagulation therapy. Plan: We will go ahead and continue current anticoagulation therapy. Continue current antibiotic Le vaquin for soft tissue infection of the right thigh. We will go ahead and continue current antihyper tensive medication and continue physical therapy under guidance of Dr. Teague. I will be out of to wn after today and I will be back on Monday morning and Dr. Teague to cover this patient on my beha lf and in case if there is any need for medical management, then hospitalist Dr. Govea should assist with medical management and I have discussed details with Dr. Govea as well. PRITI/MODL Voice ID: [id number] Report ID: [id number]
--- NOTE | 2024-03-07 23:05 | PN ---
Date of Progress Note: 03/07/2024 Time Of Service: 1:30 p.m. Subjective: Ms. Carlson is resting in bed. Her friend next to the bed and the patient. She said t he right hip, where there is a right surgical site, has some slight actually an increase in the pain with therapy today. It was evaluated. There is a hematoma noted in the area, but on the outside, th ere was good hemostasis. The bandage was in place. She is able to lift the knee and extend the leg while in bed without significant issues, but as she goes to weightbearing there is more pain. She solano s pain patch. She has gabapentin adjusted. She has the [place] on board as well. The patient's medic ations actually are managed by Dr. Simmons, her primary care physician. Objective: Again, moderate pain at the surgical site and pain medications have been adjusted. No na usea, vomiting, myalgias, arthralgias, rash. Physical Examination: Vital Signs: Blood pressure 148/69, pulse 64, respiratory rate 18, temperature 97, and oxygen satura tion 96%. She had orthostatics, lying 156/69, pulse of 68; sitting 111/56, pulse 62; and standing 97 /56, pulse of 68. Midodrine will be added around 10 a.m. as she has had some elevated blood pressure s overnight and very early in the morning. HEENT: Otherwise, again normocephalic, atraumatic. Musculoskeletal: She does have some edema noted in the right lower extremity, where she has a right hip fracture, status post surgical repair. There is a mild amount of swelling lateral to the right t high area, where there is a bandaged area from her surgery. X-ray/imaging: A repeat hip x-ray done today shows no osseous abnormalities of the right hip prosthe sis, which is in place. There is again no acute fracture. Surrounding soft tissue appears to be wit hout any significant difficulties. Laboratory Studies: White blood cell count 8.6, hemoglobin 7.7, platelets 379. Sodium 132, potassiu m 3.9, chloride is 99, carbon dioxide 29, BUN 18, creatinine 0.68. Prealbumin 17.5, albumin 2.2, mag nesium 1.9, calcium 8.5, glucose 91. Medications: Medications have been reviewed and currently managed by Dr. Simmons, although she did have [place] now on board. She has midodrine added around 9 a.m. Progress Made With Physical, Occupational, And Speech Therapy: With physical therapy today, she was able to do ztddjp-tn-vts transfers independently. Multiple mok-ta-qmegx transfers independently. St fvx-jh-isixh transfers to wheelchairs done independently. She took 6 steps with a rolling walker usi ng the hip and mobilized the wheelchair 500 feet with modified independence. With her occupational t herapy, she did bilateral upper extremity exercises with red Thera-Band 4 sets of 10. Used a 2-pound dowel mayra, did 10 sets of arm exercises. She did have some fatigue with exercise. With speech, she was able to recall 0 of 4 unrelated items after 30-second delay with maximum assistance. She did wo rk on working memory. She did 3 units of a sequencing task with 10% accuracy. She was able to name 5 items within a concrete category with minimum assistance. Did appear fatigue and tired. Ms. Carlson is making very slow progress with her speech, slightly better progress with her occupati onal and physical therapy. Assessment: Ms. Carlson is a 79-year-old patient in the rehabilitation unit with a right femoral ne ck fracture, status post surgical repair. She does have some worsening pain in the area, but the x-r ay shows nothing displaced. She does have decreased mobility, decreased physical functioning, dyslip idemia, GE reflux, malnutrition, anemia, hypertension, hypothyroidism, atrial fibrillation. Plan: 1.Continue with physical, occupational, and speech therapy 3.5 hours, 5 of 7 days. 2.She has multiple comorbid conditions, which are managed by Dr. Simmons. For orthostatics, again mido drine has been adjusted. She has now an increased dosage of gabapentin from 100 mg twice daily to 300 mg twice daily to mitigate the pain in the right hip and right surgical site at the right melidag hMoe LANCE/SUSI Voice ID: [id number] Report ID: [id number]
[2024-03-08] MEDS: LIDOCAINE 4% PATCH TOP SCH (07:26)
[2024-03-08] MEDS ORDERED: MIDODRINE HCL 5 MG TABLET PO SCH (08:00)
[2024-03-08] MEDS: MIDODRINE HCL 5 MG TABLET PO SCH (11:22)
--- NOTE | 2024-03-08 14:05 | P.RH.PN ---
Estimated Length of Stay: 14 Expected Discharge Date: 03/14/24 Discharge Disposition Plan: Home Family Support: Yes Jail Goal: Mobility, Transfers, Self Care Vital Signs: Last Vital Signs Temp 98.2 F 03/08/24 07:14 Pulse 59 03/08/24 07:25 Resp 18 03/08/24 10:17 BP 141/71 H 03/08/24 07:25 Pulse Ox 95 03/08/24 10:17 Laboratory: Laboratory Last Values WBC 8.60 thou/uL (4.3-10.9) 03/07/24 05:16 RBC 2.51 M/uL (3.86-4.86) L 03/07/24 05:16 Hgb 7.7 g/dL (12.0-15.0) L 03/07/24 05:16 Hct 23.1 % (36.0-45.0) L 03/07/24 05:16 MCV 92.0 fL (80-100) 03/07/24 05:16 MCH 30.6 pg (27.0-35.0) 03/07/24 05:16 MCHC 33.2 g/dL (32.0-36.0) 03/07/24 05:16 RDW 20.8 % (12.1-15.2) H 03/07/24 05:16 Plt Count 379 thou/uL (152-406) 03/07/24 05:16 MPV 6.6 fL (7.6-11.3) L 03/07/24 05:16 Neutrophils % 58.0 % (41.7-73.7) 03/07/24 05:16 Lymphocytes % 28.3 % (15.3-44.8) 03/07/24 05:16 Monocytes % 10.3 % (3.3-12.3) 03/07/24 05:16 Eosinophils % 2.5 % (0-4.4) 03/07/24 05:16 Basophils % 0.9 % (0-1.3) 03/07/24 05:16 Absolute Neutrophils 5.0 K/uL (1.8-8.0) 03/07/24 05:16 Absolute Lymphocytes 2.4 K/uL (0.7-4.9) 03/07/24 05:16 Absolute Monocytes 0.9 K/uL (0.1-1.3) 03/07/24 05:16 Absolute Eosinophils 0.2 K/uL (0-0.5) 03/07/24 05:16 Absolute Basophils 0.1 K/uL (0-0.5) 03/07/24 05:16 Platelet Estimate Adeq 03/07/24 05:16 Polychromasia 1+ 03/07/24 05:16 Anisocytosis 1+ 03/07/24 05:16 Schistocytes Few 03/07/24 05:16 Morphology Comment Noted (NOT SEEN) 03/07/24 05:16 Sodium 132 mEq/L (136-145) L 03/07/24 05:16 Potassium 3.9 mEq/L (3.5-5.1) 03/07/24 05:16 Chloride 99 mEq/L (98-107) 03/07/24 05:16 Carbon Dioxide 29 mEq/L (21-32) 03/07/24 05:16 Anion Gap 7.9 mEq/L (5.0-15.0) 03/07/24 05:16 BUN 18 mg/dL (7-18) 03/07/24 05:16 Creatinine 0.68 mg/dL (0.55-1.02) 03/07/24 05:16 Est GFR (CKD-EPI) 90 ml/min (=/>90) 03/07/24 05:16 Glucose 91 mg/dL (74-106) 03/07/24 05:16 Calcium 8.5 mg/dL (8.5-10.1) 03/07/24 05:16 Magnesium 1.9 mg/dL (1.6-2.4) 03/07/24 05:16 Albumin 2.2 g/dL (3.4-5.0) L 03/07/24 05:16 Prealbumin 17.5 mg/dL (20-40) L 03/07/24 05:16 Smear Scan Ok (OK) 03/07/24 05:16 Weight: 108 lb Wound Present: No Closed Surgical Incision Present: Yes Negative Pressure Wound Therapy Present: No Physician Update: Hgb is low at 7.7. On hemocyte plus and ferrous sulfate. Fatigue and orthostatic hypotension. SLUMS 12 with understanding of deficits. Met 2/3 STG and 1/4 LTG. RC 150' with CGA, independent with bed mobility. Met 1/4 LTG and 3/4 STG. She is motivated to go on a cruise in April. Summary: Patient's care plan and intermediate designer goals have been reviewed and revised as necessary. Please see the Rehabilitation Signature page for all necessary signatures.
[2024-03-09 07:02] LABS: Absolute Basophils 0.1 K/uL (0-0.5); Absolute Eosinophils 0.3 K/uL (0-0.5); Absolute Lymphocytes (CBC) 2.5 K/uL (0.7-4.9); Absolute Monocytes 0.9 K/uL (0.1-1.3); Absolute Neutrophil 4.3 K/uL (1.8-8.0); Eosinophils % 3.8 % (0-4.4); Hematocrit 25.8 % (36.0-45.0); Hemoglobin 8.5 g/dL (12.0-15.0); Lymphocytes % 30.9 % (15.3-44.8); MCH 30.5 pg (27.0-35.0); MCHC 33.1 g/dL (32.0-36.0); MPV 6.1 fL (7.6-11.3); Monocytes % 11.3 % (3.3-12.3); Platelets 499 thou/uL (152-406); Red Cell Distribution Width 21.1 % (12.1-15.2)
[2024-03-09 07:11] LABS: Anion Gap 8.7 mEq/L (5.0-15.0); Potassium 3.7 mEq/L (3.5-5.1)
[2024-03-11] MEDS: GABAPENTIN 300 MG CAP PO SCH (20:08)
[2024-03-11] MEDS: FERROUS SULFATE 325 MG TAB PO SCH (20:09)
--- NOTE | 2024-03-11 22:33 | PN ---
Date of Progress Note: 03/11/2024 Subjective: The patient was seen this morning for followup. No new complaints or problems reported by the patient, lying in bed, not in distress. No new complaints or problems reported. Objective: Vital Signs: Reviewed. HEENT: Unremarkable. Lungs: Clear to auscultation. Heart: Sounds normal. Abdomen: Soft. Bowel sounds normal. No guarding, rigidity, tenderness, distention. Extremities: No leg edema. Impression: 1.Right hip fracture. 2.Anemia due to acute blood loss. 3.Hypertension. 4.Orthostatic hypotension. 5.Paroxysmal atrial fibrillation. Plan: We will go ahead and continue current antihypertensive medication. The patient remains on Lupe alice. We will continue that. The patient is scheduled to go home tomorrow and today when I was talk ing to her regarding this discharge plan for tomorrow, she informed me that she feels like she is jennifer dy to go home and she will be able to take care of herself, but her children do not feel like she yenifer uld go home and she tells me that they are in process of making arrangements for her to go to senior living, but she does not know anything about it, so I have asked her to communicate with the case kari petty and I did ask nursing staff to let gearcase assembler know, to communicate with the patient to make arr angements for discharge planning scheduled for tomorrow. I will see her tomorrow for followup and we will discharge her either to home or [facility] facility depending on what the final decision i s made. I have also asked nursing staff to communicate with her client engagement specialist regarding followup visit as well as kavon steven ACA/MODL Voice ID: [id number] Report ID: [id number]
--- NOTE | 2024-03-11 22:48 | PN ---
Date of Progress Note: 03/11/2024 Time Of Service: 1:30 p.m. Subjective: Ms. Carlson is resting in bed. She is in no significant distress. She does say, howev er, the pain is somewhat more in the right hip area where she has a right hip fracture and repair don e. Otherwise, no other complaints on review of systems. Objective: No fevers or chills. There is mild myalgias, arthralgias in the right lower extremity wh ere she has the surgical site as noted. She had some questions about removing any of the jacky and that was discussed. Physical Examination: Vital Signs: Blood pressure 134/66, pulse 64, respiratory rate 16, temperature 97.4. There were ort hostatics done lying 148/72, pulse 57; sitting 119/67, pulse 60; and standing 117/71, pulse 73. Duri ng that time, she was not symptomatic. However, in discussion with one of the physical therapist, lukas sherman indicate that after she had been up and ambulating for around 5 minutes, she had significant drop i n blood pressure, making it difficult for her to even remain in the seated position. She did recover after several minutes in terms of the blood pressure. Extremities: Otherwise in terms of her examination, good hemostasis in the right hip surgical site, no significant edema in the ankles on both sides and no focal neurological deficits. Laboratory Studies: No new laboratory studies since the . X-ray/imaging: No new x-rays or imaging. Medications: Her medications have been reviewed. She does have the gabapentin dosage increased to h elp with the pain to 600 mg twice daily. Her other medications are: She does have the ferrous sulfa te, was continued and the Hemocyte Plus due to some irritation. The ferrous sulfate started was cont inued at twice daily instead of once daily and the Hemocyte Plus was discontinued. Other medications are unchanged. Progress Made With Physical, Occupational, And Speech Therapy: With physical therapy today, supine t o sit transfers done independently, multiple sit to stand transfers done independently. Did toilet t ransfers with minimum assistance because of the change in blood pressure. With a rolling walker, she ambulated 75 feet twice and 35 feet twice with supervision. Emphasis was placed on upright posture. With occupational therapy, independent with sit to stand transfers and shower using grab bars. Ind ependent with bathing, upper and lower body dressing and footwear. She did tolerate her session well and is noted to be safe and independent. With speech, the patient maintained 15 on the BIMS, which is a full score. Improved her SLUMS score from 12 to 19. She did have problems with short-term jenny ry, calculations, and paragraph recall. Speech therapy recommended to be continued after discharge f rom the unit. Ms. Carlson is making good progress overall with physical, occupational, and speech therapy. Somewh at limited by the pain in the right hip and medications have been adjusted. Assessment: Ms. Carlson is a 79-year-old patient with a right femoral neck fracture, status post re pair. As noted, there is a significant amount of pain still remaining and she is having pain medicat ions adjusted. She has dyslipidemia, GE reflux, malnutrition, anemia, hypertension, hypothyroidism, atrial fibrillation, decreased mobility, decreased physical functioning. Plan: Continue with physical, occupational, and speech therapy for 3-1/2 hours, 5 of 7 days. Contin ue with management of her comorbid conditions as addressed by Dr. Simmons. The orthostatics again remai n to be a limiting issue. Again pain, gabapentin was adjusted for that. All the medications are not ed. She will have followup with orthopedic surgeon and date and time of scheduling will be confirmed prior to her discharge. In addition, she will follow up with Dr. Simmons after discharge. Comorbidities That Are Impacting Rehabilitation: The comorbidity of pain is somewhat impacting her, but she is still working through it. Again, medication adjustment with the gabapentin has been made to help mitigate that. CASI/SUSI Voice ID: [id number] Report ID: [id number]
[2024-03-12] MEDS: TAMSULOSIN 0.4 MG SR CAP PO ONE (06:56)
--- NOTE | 2024-03-12 08:20 | RAD REPORT ---
EXAM DESCRIPTION: RAD - Abdomen 1 View (KUB) - 03/12/2024 6:25 am CLINICAL HISTORY: Abdomen pain FINDINGS: The bowel gas pattern is unremarkable. Moderate amount of stool is present within the colon. Calcified splenic granulomas present. Surgical clips right upper quadrant. Scoliosis Right hip arthroplasty
[2024-03-12] MEDS: MIDODRINE HCL 5 MG TABLET PO SCH (08:21)
[2024-03-12] MEDS: BISACODYL 10 MG RECTAL SUPP PR PRN (15:21)
[2024-03-12] MEDS: TAMSULOSIN 0.4 MG SR CAP PO SCH (19:39)
[2024-03-12] MEDS ORDERED: TAMSULOSIN 0.4 MG SR CAP PO SCH (21:00)
--- NOTE | 2024-03-12 22:51 | PN ---
Date of Progress Note: 03/12/2024 Time Of Service: 1:30 p.m. Subjective: Ms. Carlson is resting in bed. She did say that the pain in the right hip is somewhat better, but still present to be bothersome down to a 5 from 8. Otherwise, still having issues to hav e very good bowel movements, worried about when prescriptions will be sent off for discharge. She wa s told of course Dr. Simmons will be doing the discharge as he does discharges for his patients and she will be able to go home soon when her discharge is ready. Review of Systems: No fevers, chills. Mild myalgias, arthralgias in the right lower extremity where is the right femor al neck fracture. There is a small hematoma postoperative there, but no active bleeding. There is g ood hemostasis. Physical Examination: Vital Signs: Blood pressure 147/64, pulse 65, respiratory rate 18, and temperature is 97. Earlier t marianne, she had orthostatics that was around 8 in the morning. While lying, 155/70, pulse 55; while si tting 127/63, pulse 60; and while standing 128/52, pulse 62 and she did well with that. HEENT: Otherwise, she is normocephalic, atraumatic. Sclerae anicteric. Oropharynx pink, moist. Neck: Supple. Chest: Clear. Extremities: No significant edema in the right lower extremity or left lower extremity. Good hemost asis at left hip surgical site. Laboratory Studies: No new laboratory studies. X-ray/imaging: She had a KUB x-ray done due to potential issues of constipation. The study showed b owel gas pattern was unremarkable. There was a moderate amount of stool in the colon. Calcified spl enic granulomas present. Surgical clips in the right upper quadrant. There is scoliosis and right h ip arthroplasty is identified. Progress Made With Physical, Occupational, And Speech Therapy: With physical therapy today, supine t o sit transfers was independent. Multiple [id number] transfers done independently. She was indepe ndent at the bed with a rolling walker. She did ambulate 75 feet twice with supervision using a roll ing walker. Able to ascend and descend 5 steps with bilateral handrails twice with contact guard ass istance. With occupational therapy, independent with bed mobilization, [id number] transfers, wheel chair transfers. Self propelled a wheelchair to the gym all independently. Donning and doffing shoe s independently. With speech, she required moderate to maximal assistance, recalled 4/4 unrelated pi ctures after 3 minutes. Semantic and verbal cues were highly beneficial. She could name 10 items wi thin a category with moderate assistance. She needed moderate assistance for sequencing for events w ith 70% accuracy. Working memory tasks done with 80% accuracy and moderate assistance. Ms. Carlson is making pretty good recovery after her right femoral neck stroke and she is improving well and still worried about going home and she will continue with therapy. Her son who was there di d indicate that she will have help. She will continue with therapy after discharge. Assessment: Ms. Carlson is a 79-year-old patient in the rehabilitation unit with a right femoral ne ck fracture, status post surgical repair. She is doing very well with her physical, occupational, an d speech therapy. Still has some challenges and required therapy to continue after discharge. She h as comorbid hypertension, hypothyroidism, GE reflux, malnutrition, anemia, atrial fibrillation, decre ased mobility, decreased physical functioning, dyslipidemia. Plan: 1.Continue with physical, occupational, and speech therapy for 3.5 hours, 5 of 7 days. Continue wit h all medications that are noted for her comorbid conditions including the Tylenol, Norvasc. She has pancreatic enzymes in place, Eliquis 5 mg twice daily for atrial fibrillation and stroke risk reduct ion, aspirin 81 mg daily, vitamin B12, ferrous sulfate. Gabapentin has been adjusted to help manage her right hip pain. She has levofloxacin per Dr. Simmons, has continued until 03/14; Synthroid for hypo thyroidism; Cozaar for blood pressure management along with Lipitor; midodrine for blood pressure sup port, which is working well; Crestor; Protonix; Zofran; Senokot; Carafate; Flomax; Ultram; Zinc; and vitamin A all on board. 2.She will be ready for discharge and follow up with Dr. Simmons and her orthopedic surgeon. CASI/SUSI Voice ID: [id number] Report ID: [id number]
--- NOTE | 2024-03-12 23:57 | PN ---
Date of Progress Note: 03/12/2024 Subjective: The patient was seen this morning for followup. No new complaints or problems reported by the patient. She was lying in bed, not in any distress. Denies any new complaints. Objective: Vital Signs: Reviewed. HEENT: Unremarkable. Lungs: Clear to auscultation. Heart: Sounds normal. Abdomen: Soft. Bowel sounds normal. No guarding, rigidity, tenderness, or distention. Extremities: No leg edema. Impression: 1.Right hip fracture. 2.Anemia due to acute blood loss. 3.Hypertension. 4.Orthostatic hypotension. 5.Paroxysmal atrial fibrillation. 6.Chronic anticoagulation therapy. Plan: We will go ahead and continue current medications, continue current anticoagulation therapy. We will continue current antihypertensive medication, monitor orthostatic vital signs. Continue phys ical therapy under guidance of Dr. Teague and the patient is scheduled to go home on , whic h is day after tomorrow and she feels comfortable going home instead of going to the longterm. PRITI/MODL Voice ID: [id number] Report ID: [id number]
[2024-03-13] MEDS ORDERED: HYDROCODONE/APAP 5/325 MG TAB PO PRN (08:59)
[2024-03-13] MEDS: ACETAMINOPHEN 500 MG TAB PO PRN (12:42)
--- NOTE | 2024-03-13 20:09 | PN ---
Date of Progress Note: 03/13/2024 Subjective: The patient was seen this morning for followup. No new complaints or problems reported by the patient. She was lying in bed, not in distress. Objective: Vital Signs: Reviewed. HEENT: Unremarkable. Lungs: Clear to auscultation. Heart: Sounds normal. Abdomen: Soft. Bowel sounds normal. No guarding, rigidity, tenderness, distention. Extremities: No leg edema. Impression: 1.Right hip fracture. 2.Acute blood loss anemia. 3.Hypertension. 4.Orthostatic hypotension. 5.Paroxysmal atrial fibrillation. 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 Plan: We will go ahead and continue Eliquis per order. Continue physical therapy under guidance of Dr. Teague. We will also continue her antihypertensive medications. The patient is scheduled to g o home tomorrow and I will see her in the morning for visit and then we will discharge her tomorrow. I have instructed her to come see me next week for followup. Her sutures from right thigh were cristina cookie with approval of her orthopedic surgeon day before yesterday. PRITI/MODL Voice ID: [id number] Report ID: [id number]
[2024-03-13] MEDS: HYDROCODONE/APAP 5/325 MG TAB PO PRN (20:14)
[2024-03-14 06:10] LABS: Absolute Basophils 0.1 K/uL (0-0.5); Absolute Eosinophils 0.2 K/uL (0-0.5); Absolute Lymphocytes (CBC) 2.2 K/uL (0.7-4.9); Absolute Monocytes 0.8 K/uL (0.1-1.3); Absolute Neutrophil 4.3 K/uL (1.8-8.0); Basophils % 0.9 % (0-1.3); Eosinophils % 2.6 % (0-4.4); Hematocrit 23.5 % (36.0-45.0); Hemoglobin 7.7 g/dL (12.0-15.0); Lymphocytes % 28.9 % (15.3-44.8); MCH 30.6 pg (27.0-35.0); MCHC 32.8 g/dL (32.0-36.0); MCV 93.3 fL (80-100); MPV 6.5 fL (7.6-11.3); Monocytes % 11.1 % (3.3-12.3); Neutrophils % 56.5 % (41.7-73.7); Platelets 427 thou/uL (152-406); RBC Red Blood Cell Count 2.52 M/uL (3.86-4.86); Red Cell Distribution Width 21.4 % (12.1-15.2)
[2024-03-14 06:42] LABS: ALT/SGPT 16 U/L (13-56); Albumin 2.3 g/dL (3.4-5.0); Albumin/Globulin Ratio 0.9 (1.1-1.8); Alkaline Phosphatase 66 U/L (45-117); Anion Gap 9.9 mEq/L (5.0-15.0); BUN Blood Urea Nitrogen 18 mg/dL (7-18); Bicarbonate 26 mEq/L (21-32); Bilirubin Total 0.2 mg/dL (0.2-1.0); Globulin 2.7 g/dL (2.3-3.5); Glomerular Filtration Rate 88 ml/min (=/>90); Glucose Level 96 mg/dL (74-106); HDL Cholesterol 60 mg/dL (40-60); LDL Cholesterol, Calculated 14 mg/dL (<130); LDL Cholesterol,Calc NonReport 14; Potassium 3.9 mEq/L (3.5-5.1); Sodium Level 135 mEq/L (136-145)
[2024-03-14 06:48] LABS: AST/SGOT < 10 U/L (15-37)
[2024-03-14 07:45] VITALS: TEMP 97.5
[2024-03-14 08:05] LABS: Anisocytosis 1+; Blood Morphology Comment NOTED (NOT SEEN); Hypochromasia 1+; Platelet Estimate INCR; White Blood Cell Scan OK (OK)
[2024-03-14 13:55] VITALS: BP 131/64
== END 2024-03-14 13:25 | disposition home health service (06) | DRG 559 ==
LOC: 5TH 18:10
PROVIDERS: ADMIT Psychiatry & Neurology Neurology with Special Qualifications in Child Neurology; ATTEND Internal Medicine
DX: S72.001D Fracture of unspecified part of neck of right femur, subsequent encounter for closed fracture with routine healing (principal); E43 Unspecified severe protein-calorie malnutrition; D62 Acute posthemorrhagic anemia; E22.2 Syndrome of inappropriate secretion of antidiuretic hormone; Z68.1 Body mass index [BMI] 19.9 or less, adult; E03.9 Hypothyroidism, unspecified; R73.01 Impaired fasting glucose; I10 Essential (primary) hypertension; E78.5 Hyperlipidemia, unspecified; K21.9 Gastro-esophageal reflux disease without esophagitis; K57.90 Diverticulosis of intestine, part unspecified, without perforation or abscess without bleeding; F17.200 Nicotine dependence, unspecified, uncomplicated; I48.0 Paroxysmal atrial fibrillation; R53.1 Weakness; R53.81 Other malaise; I95.1 Orthostatic hypotension; K52.831 Collagenous colitis; K59.00 Constipation, unspecified; Z79.01 Long term (current) use of anticoagulants
CPT/HCPCS: 36415; 74018; 80048; 80053; 80061; 82040; 82947; 83735; 84134; 84439; 84443; 85025; 92523; 97010; 97110; 97116; 97129; 97162; 97165; 97530; 97542; J2001; Q0162